=== PATIENT | male | born 1950 ===

== ENCOUNTER 2020-01-14 18:42 | Emergency (ER) | payer MEDICARE, MEDICAID, SELFPAY ==
--- NOTE | 2020-01-14 18:52 | ECG_ITS ---
Test Reason : CP Blood Pressure : / mmHG Vent. Rate : 078 BPM Atrial Rate : 078 BPM P-R Int : 150 ms QRS Dur : 086 ms QT Int : 366 ms P-R-T Axes : 066 068 041 degrees QTc Int : 417 ms Normal sinus rhythm Normal ECG No significant changes when compared with the previous EKG of 23 mar 2019 Referred By: Chari Larson Electronically Signed By:PARTH RINALDI
--- NOTE | 2020-01-14 19:10 | PC.NURSE ---
PT TO ROOM #17 WITH C/O CHEST PAIN, PT DENIES N/V AT THIS TIME. PT DENIES NECK OR ARM PAIN. PT CHG INTO GOWN. EKG OBTAINED TO . PT ON MONITOR WITH HR 71. PO 96%. PT SPEAKING ON PHONE WITH FAMILY. HL PLACED TO [facility], LABS DRAWN TO LAB FOR EVAL. MD IN ROOM FOR EVAL. WILL CONTINUE TO MONITOR PT.
--- NOTE | 2020-01-14 19:16 | ED_ITS ---
HPI - Chest Pain General Chief Complaint: Chest Pain Stated Complaint: Chest Pain Time Seen by Provider: 01/14/20 19:05 Source: patient Mode of arrival: ambulatory Limitations: no limitations History of Present Illness HPI narrative: Patient comes emergency room complaining of chest pain for 2-3 weeks. Patient states it only hurts if he moves or if he lifts both of his arms up. Pain is nonradiating. Patient states he has been feeling tired for 3 weeks now. Patient denies any coughing, no fever, no known exposure to COVID-19 patients. MD complaint: chest pain Related Data Previous Rx's Medication Instructions Recorded tramadol 50 mg PO Q8H PRN #10 tab 01/14/20 Allergies Allergy/AdvReac Type Severity Reaction Status Date / Time No Known Allergies Allergy Unverified 10/27/19 15:16 [No Known Allergies*] Review of Systems Review of Systems: Constitutional : No Weight loss, No Fever, No Chills, No Night Sweats, No Fatigue, No Malaise ENT/Mouth : No Hearing loss, No Ear Pain, No Nasal Congestion, No Sinus Pain, No Hoarseness, No sore throat, No Rhinorrhea, No Swallowing Difficulty Eyes: No Eye Pain, No Swelling, No Redness, No Foreign Body, No Discharge, No Vision Changes Cardiovascular : Complaining left-sided Chest Pain, No SOB, No Dyspnea on Exertion, No Orthopnea, No Edema, No Palpitations, complaining of reproducible chest pain with arm movement or pressing on the left side of his chest Respiratory : No Cough, No Sputum, No Wheezing, No Smoke Exposure, No Dyspnea Gastrointestinal : No Nausea, No Vomiting, No Diarrhea, No Constipation, No abdominal Pain, No Hematochezia, No Melena Genitourinary : no irregular bleeding, No Dysuria, No Urinary Frequency, No Hematuria, No Urinary Incontinence, No Urgency, No Flank Pain, No Urinary Flow Changes, No Hesitancy Musculoskeletal : No joint pain, No Myalgias, No Joint Swelling Skin : No Skin Lesions, No rash Neuro : No Weakness, No Numbness, No Paresthesias, No Loss of Consciousness, No Dizziness, No Headache Psych : No Anxiety/Panic, No Depression, No SI/HI/AH/VH, No Social Issues, Heme/Lymph: No Bruising, No Bleeding,No Lymphadenopathy Endocrine : No Polyuria, No Polydipsia, No Temperature Intolerance PMFSH Past Medical History Medical History (Updated 01/14/20 @ 23:24 by Chari Larson MD) Myocardial infarct Social History Social History Advance Directives: No Advance Directives Information Provided: Yes Physical Exam Vital Signs: Vital Signs: Last Vital Signs Temp 98.2 F 01/14/20 21:57 Pulse 70 01/14/20 21:57 Resp 16 01/14/20 21:57 BP 146/86 H 01/14/20 21:57 Pulse Ox 99 01/14/20 21:57 Appearance: Alert. Oriented X3. No acute distress. Eyes: Pupils equal, round and reactive to light. ENT: Pharynx normal. Neck: Normal inspection. Neck supple. No lymph nodes noted. No crepitus CVS: Normal heart rate and rhythm. Pulses normal. Normal S1 and S2, mild 1/6 systolic murmur, reproducible chest pain on palpation Respiratory: No respiratory distress. Breath sounds normal. No Wheezing. No rales Abdomen: Soft and nontender. No rigidity. No distention. good BS x4 Skin: Skin warm and dry. Normal skin color. Normal skin turgor. Extremities: No lower extremity edema. No lower extremity edema. No Lacerations. No Rash Neuro: Oriented X 3. No motor deficit. No sensory deficit. Moving all extermities. No slurred speech. Course Course Course Narrative: patient states the tramadol helps, patient has no chest pain At this time. Patient's troponin 2. 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 MDM - Chest Pain Lab Data Result diagrams: 01/14/20 19:28 01/14/20 19:28 Labs: Lab Results 01/14/20 01/14/20 01/14/20 Range/Units 19:28 19:28 19:28 WBC 5.4 (4.8-10.8) X10*3/uL RBC 4.69 (4.60-5.80) X10*6/uL Hgb 13.2 L (14.0-18.0) g/dl Hct 40.3 L (42-52) % MCV 85.9 (80-98) fL MCH 28.1 (27.0-33.0) pg MCHC 32.8 (31.0-36.0) g/dl RDW 15.0 (11.0-16.0) % Plt Count 266 (160-400) X10*3/uL MPV 9.9 (9.4-12.4) fL Immature Gran % (Auto) 0.2 (0.0-0.4) % Neut % (Auto) 57.7 (45-73) % Lymph % (Auto) 29.6 (20-40) % [place] % (Auto) 9.1 (2-11) % Eos % (Auto) 3.2 (0-4) % Baso % (Auto) 0.2 (0-2) % Lymph # (Auto) 1.6 (1.2-4.9) X10*3/uL [place] # (Auto) 0.5 (0.1-1.2) X10*3/uL Eos # (Auto) 0.2 (0.0-0.4) X10*3/uL Baso # (Auto) 0.0 (0.0-0.2) X10*3/uL Abs Immat Gran (auto) 0.01 (0.00-0.03) X10*3/uL Absolute Neuts (auto) 3.1 (2.0-8.3) X10*3/uL Absolute Nucleated RBC 0.000 (0.0-0.012) X10*3/uL Nucleated RBC % (auto) 0.0 (0.0-0.2) /100WBC Sodium 138 (135-145) mmol/L Potassium 4.4 (3.3-5.1) mmol/l Chloride 105 (96-108) mmol/L Carbon Dioxide 22 (22-29) mmol/L Anion Gap 15 (12-20) BUN 20 H (9-16) mg/dL Creatinine 0.95 (0.5-1.4) mg/dL Estim Creat Clear Calc TNP Estimated GFR > 60 Random Glucose 89 (60-115) mg/dL Calcium 9.0 (8.4-10.2) mg/dL Troponin I High Sens 13.9 (<3.5-35.0) ng/L B-Natriuretic Peptide < 10 (<100) pg/mL 01/14/20 Range/Units 22:22 WBC (4.8-10.8) X10*3/uL RBC (4.60-5.80) X10*6/uL Hgb (14.0-18.0) g/dl Hct (42-52) % MCV (80-98) fL MCH (27.0-33.0) pg MCHC (31.0-36.0) g/dl RDW (11.0-16.0) % Plt Count (160-400) X10*3/uL MPV (9.4-12.4) fL Immature Gran % (Auto) (0.0-0.4) % Neut % (Auto) (45-73) % Lymph % (Auto) (20-40) % [place] % (Auto) (2-11) % Eos % (Auto) (0-4) % Baso % (Auto) (0-2) % Lymph # (Auto) (1.2-4.9) X10*3/uL [place] # (Auto) (0.1-1.2) X10*3/uL Eos # (Auto) (0.0-0.4) X10*3/uL Baso # (Auto) (0.0-0.2) X10*3/uL Abs Immat Gran (auto) (0.00-0.03) X10*3/uL Absolute Neuts (auto) (2.0-8.3) X10*3/uL Absolute Nucleated RBC (0.0-0.012) X10*3/uL Nucleated RBC % (auto) (0.0-0.2) /100WBC Sodium (135-145) mmol/L Potassium (3.3-5.1) mmol/l Chloride (96-108) mmol/L Carbon Dioxide (22-29) mmol/L Anion Gap (12-20) BUN (9-16) mg/dL Creatinine (0.5-1.4) mg/dL Estim Creat Clear Calc Estimated GFR Random Glucose (60-115) mg/dL Calcium (8.4-10.2) mg/dL Troponin I High Sens 16.2 (<3.5-35.0) ng/L B-Natriuretic Peptide (<100) pg/mL Scores Heart Score History: -0- slightly suspicious ECG: -0- normal Age: -2- > or = 65 Risk factory: -1- 1 or 2 risk factors Troponin: -0- < or = normal limit Score: 3 Risk: 1.7% Discharge Plan Discharge Clinical Impression: Atypical chest pain Patient Disposition: Home, Self-Care Instructions: Chest Pain (ED) Additional Instructions: Please follow-up with your primary care physician tomorrow. If you have any worsening or new symptoms, please return to the emergency room or call 911 Prescriptions: New tramadol 50 mg tablet 50 mg PO Q8H PRN (Reason: pain) Qty: 10 RF: 0
--- NOTE | 2020-01-14 19:21 | XR_ITS ---
EXAMINATION: XR CHEST CLINICAL INFORMATION: Left-sided chest pain COMPARISON: 03/19/2017 TECHNIQUE: Frontal view of the chest was obtained. FINDINGS: Again seen are changes of median sternotomy and clips denoting CABG. Heart size is normal. No infiltrates, effusions or lung masses are seen. Mild degenerative changes noted once again in the spine. XR/XR chest 1V IMPRESSION: Unremarkable examination. No acute intrathoracic disease.
--- NOTE | 2020-01-14 19:26 | PC.NURSE ---
X-RAY IN ROOM FOR CHEST X-RAY.
[2020-01-14 19:43] LABS: MANUAL DIFF FLAG NO
[2020-01-14 19:44] LABS: Basophils Percent Auto 0.2 % (0-2); Eosinophils Absolute Auto 0.2 X10*3/uL (0.0-0.4); Eosinophils Percent Auto 3.2 % (0-4); Hematocrit 40.3 % (42-52); Hemoglobin 13.2 g/dl (14.0-18.0); Imm Gran Abs Auto 0.01 X10*3/uL (0.00-0.03); Imm Gran Pct Auto 0.2 % (0.0-0.4); Lymphocytes Absolute Auto 1.6 X10*3/uL (1.2-4.9); Lymphocytes Percent Auto 29.6 % (20-40); Mean Corpuscular HGB Conc 32.8 g/dl (31.0-36.0); Mean Corpuscular Hemoglobin 28.1 pg (27.0-33.0); Mean Corpuscular Volume 85.9 fL (80-98); Mean Platelet Volume 9.9 fL (9.4-12.4); Monocytes Absolute Auto 0.5 X10*3/uL (0.1-1.2); Monocytes Percent Auto 9.1 % (2-11); Neutrophils Absolute Auto 3.1 X10*3/uL (2.0-8.3); Neutrophils Percent Auto 57.7 % (45-73); Platelet Count 266 X10*3/uL (160-400); Red Blood Count 4.69 X10*6/uL (4.60-5.80); White Blood Count 5.4 X10*3/uL (4.8-10.8)
[2020-01-14 20:03] LABS: Anion Gap 15 (12-20); Blood Urea Nitrogen 20 mg/dL (9-16); Carbon Dioxide 22 mmol/L (22-29); Chloride 105 mmol/L (96-108); Estimated Glomerular Filt Rate > 60; Glucose Random 89 mg/dL (60-115); Potassium 4.4 mmol/l (3.3-5.1); Sodium 138 mmol/L (135-145)
[2020-01-14 20:10] LABS: B Type Natriuretic Peptide < 10 pg/mL (<100); Troponin-I High Sensitivity 13.9 ng/L (<3.5-35.0)
[2020-01-14 20:11] VITALS: BP 165/78; PULSE 66; RESP 16; O2SAT 16
[2020-01-14 21:57] VITALS: BP 146/86; PULSE 70; RESP 16; TEMP 36.8; O2SAT 99
[2020-01-14] MEDS: traMADoL HCL 50 MG TABLET PO (22:20)
[2020-01-14 22:58] LABS: Troponin-I High Sensitivity 16.2 ng/L (<3.5-35.0)
== END 2020-01-14 23:38 | disposition home or self-care (01) ==
PROVIDERS: Emergency Provider Emergency Medicine; PCP Internal Medicine
DX: R07.89 Other chest pain (principal); I25.2 Old myocardial infarction
CPT/HCPCS: 36415; 71045; 80048; 83880; 84484; 85025; 93005; 99283

== ENCOUNTER → 2020-02-07 10:30 | Outpatient (BNVA) | payer MEDICARE, MEDICAID, SELFPAY | PROVIDERS: PCP Internal Medicine; Visit Provider Nurse Practitioner Family | DX: I25.10 Atherosclerotic heart disease of native coronary artery without angina pectoris (principal); I10 Essential (primary) hypertension; E78.5 Hyperlipidemia, unspecified; E11.9 Type 2 diabetes mellitus without complications; E66.9 Obesity, unspecified; Z68.34 Body mass index [BMI] 34.0-34.9, adult; Z79.899 Other long term (current) drug therapy; Z95.1 Presence of aortocoronary bypass graft | CPT/HCPCS: 99212 ==

== ENCOUNTER 2020-02-08 08:53 | Outpatient (REF) | payer MEDICARE, MEDICAID, SELFPAY ==
[2020-02-08 09:52] LABS: Alanine Aminotransferase 22 U/L (0-40); Aspartate Amino Transferase 20 U/L (5-37); Cholesterol 155 mg/dL; HDL Cholesterol 49 mg/dL; LDL Cholesterol Calculated 89 mg/dl; Triglycerides 86 mg/dL
== END 2020-02-08 08:54 | disposition home or self-care (01) ==
LOC: HO.LAB 08:53
PROVIDERS: PCP Internal Medicine; Visit Provider Nurse Practitioner Family
DX: E78.5 Hyperlipidemia, unspecified (principal)
CPT/HCPCS: 80061; 84450; 84460

== ENCOUNTER → 2020-09-13 08:08 | Outpatient (BNVA) | payer MEDICARE, MEDICAID, SELFPAY | PROVIDERS: PCP Internal Medicine; Visit Provider Internal Medicine | DX: I25.10 Atherosclerotic heart disease of native coronary artery without angina pectoris (principal); I10 Essential (primary) hypertension; E11.8 Type 2 diabetes mellitus with unspecified complications; E66.01 Morbid (severe) obesity due to excess calories | CPT/HCPCS: 93005; 99212 ==

== ENCOUNTER → 2021-03-19 08:23 | Outpatient (BNVA) | payer MEDICARE, MEDICAID, SELFPAY | PROVIDERS: PCP Internal Medicine; Visit Provider Internal Medicine | DX: I25.10 Atherosclerotic heart disease of native coronary artery without angina pectoris (principal); I10 Essential (primary) hypertension; E11.8 Type 2 diabetes mellitus with unspecified complications; E66.01 Morbid (severe) obesity due to excess calories; Z68.34 Body mass index [BMI] 34.0-34.9, adult | CPT/HCPCS: 99212 ==

== ENCOUNTER → 2021-08-30 08:40 | Outpatient (BNVA) | payer MEDICARE, MEDICAID, SELFPAY | PROVIDERS: PCP Internal Medicine; Visit Provider Internal Medicine Pulmonary Disease | DX: J45.909 Unspecified asthma, uncomplicated (principal); Z91.09 Other allergy status, other than to drugs and biological substances | CPT/HCPCS: 36415; 82785; 85025; 86003; 99202 ==

== ENCOUNTER 2021-08-30 09:27 | Outpatient (REF) | payer MEDICARE, MEDICAID, SELFPAY ==
[2021-08-30 09:44] LABS: MANUAL DIFF FLAG NO
[2021-08-30 09:58] LABS: Basophils Percent Auto 0.2 % (0-2); Eosinophils Absolute Auto 0.2 X10*3/uL (0.0-0.4); Eosinophils Percent Auto 4.7 % (0-4); Hematocrit 44.7 % (42.0-52.0); Hemoglobin 14.4 g/dl (14.0-18.0); Imm Gran Abs Auto 0.01 X10*3/uL (0.00-0.03); Imm Gran Pct Auto 0.2 % (0.0-0.4); Lymphocytes Absolute Auto 1.5 X10*3/uL (1.2-4.9); Mean Corpuscular HGB Conc 32.2 g/dl (31.0-36.0); Mean Corpuscular Hemoglobin 27.5 pg (27.0-33.0); Mean Corpuscular Volume 85.3 fL (80.0-98.0); Monocytes Absolute Auto 0.5 X10*3/uL (0.1-1.2); Monocytes Percent Auto 11.2 % (2-11); Neutrophils Absolute Auto 2.2 x10*3/uL (2.0-8.3); Neutrophils Percent Auto 49.7 % (45-73); Platelet Count 217 X10*3/uL (160-400); Red Blood Count 5.24 X10*6/uL (4.60-5.80); White Blood Count 4.5 X10*3/uL (4.8-10.8)
== END 2021-08-30 09:28 | disposition home or self-care (01) ==
LOC: HO.LAB 09:27
PROVIDERS: PCP Internal Medicine; Visit Provider Internal Medicine Pulmonary Disease
DX: Z13.89 Encounter for screening for other disorder (principal)
CPT/HCPCS: 36415; 82785; 85025

== ENCOUNTER 2021-09-10 09:17 | Outpatient (REF) | payer MEDICARE, MEDICAID, SELFPAY ==
--- NOTE | ~2021-09-10 | US_ITS ---
EXAMINATION: US THYROID CLINICAL INFORMATION: Nontoxic single thyroid nodule. COMPARISON: None TECHNIQUE: Linear transducer grayscale and color Doppler examination with attention to the region of the thyroid. FINDINGS: SIZE: Measurements of the thyroid lobes and nodules are given in sagittal, anteroposterior and transverse dimensions respectively. Right Thyroid Lobe: 5.6 x 1.8 x 2.6 cm, volume 13.9 mL. Parenchyma: The gland echotexture is homogeneous. Thyroid vascularity is normal. Left Thyroid Lobe: 3.7 x 1.6 x 2.2 cm, volume 6.9 mL. Parenchyma: The gland echotexture is homogeneous. Thyroid vascularity is normal. Isthmus: 0.3 cm in maximum AP dimension. Estimated total number of nodules greater than or equal to 1 cm: 1. Cylinder Block Hole Reliner nodules are described as follows: 1. Location: Right mid. Size: 0.9 x 0.9 x 0.7 cm, volume 0.3 mL. Nodule characteristics: Composition: Spongiform (0). Echogenicity: Anechoic (0). Shape: Not taller than wide (0). Margins: Smooth (0). Echogenic Foci: None (0). ACR TI-RADS total points: 0 ACR TI-RADS category: 1 2. Location: Right inferior. Size: 1.6 x 1.7 x 1.6 cm, volume 2.3 mL. Nodule characteristics: Composition: Solid/almost completely solid (2). Echogenicity: Hypoechoic (2). Shape: Not taller than wide (0). Margins: Smooth (0). Echogenic Foci: None (0). ACR TI-RADS total points: 4 ACR TI-RADS category: 4 3. Location: Left mid. Size: 0.6 x 0.6 x 0.8 cm, volume 0.2 mL. Nodule characteristics: Composition: Solid (2). Echogenicity: Hyperechoic (1). Shape: Not taller than wide (0). Margins: Smooth (0). Echogenic Foci: None (0). ACR TI-RADS total points: 3 ACR TI-RADS category: 3 NODES: No lymphadenopathy is seen in the tissue surrounding the thyroid gland. US/US thyroid IMPRESSION: 1. A 1.6 cm in maximal diameter right thyroid lower pole nodule meets ACR biopsy criteria and is amenable to ultrasound-guided biopsy, if clinically indicated and not already performed. 2. There is an asymmetric goiter, right lobe greater than left. ACR TI-RADS RECOMMENDATION REFERENCE: Ultrasound-guided fine-needle aspiration, followup ultrasound, no further follow up. * TR1 (0 point) and TR 2 (2 points): No FNA or follow up * TR3 (3 points): FNA if more than or equal to 2.5 cm in maximum dimension, followup ultrasound in 1, 3 and 5 years if 1.5 to 2.4 cm in maximum dimension. * TR4 (4-6 points): FNA if more than or equal to 1.5 cm in maximum dimension, followup ultrasound in 1, 2, 3 and 5 years if 1 to 1.4 cm in maximum dimension. * TR5 (more than or equal to 7 points): FNA if more than or equal to 1 cm in maximum dimension, followup ultrasound every year for 5 years if 0.5 to 0.9 cm in maximum dimension. * TR3, TR4 or TR5 nodules that are below the size threshold for follow up receive no follow up.
== END 2021-09-10 09:18 | disposition home or self-care (01) ==
LOC: HO.US 09:17
PROVIDERS: Visit Provider Internal Medicine
DX: E04.1 Nontoxic single thyroid nodule (principal)
CPT/HCPCS: 76536

== ENCOUNTER 2021-09-20 07:29 | Outpatient (REF) | payer MEDICARE, MEDICAID, SELFPAY ==
--- NOTE | 2021-09-20 11:49 | PFT_ITS ---
INDICATION: Dyspnea. SPIROMETRY: FEV1 to FVC of 94% with an FEV1 of 2.11 L, which is 77% predicted, an FVC of 2.24 L which is 61% predicted. No significant response to bronchodilators noted. Maximum voluntary ventilation 73% predicted. LUNG VOLUMES: Total lung capacity 66% predicted with an expiratory reserve volume of 30% predicted. DIFFUSION CAPACITY: DLCO 63% predicted, although corrects to 109% predicted when correcting for the alveolar volume. COMPARISONS: None. INTERPRETATION: No obstructive ventilatory defect. No significant response to bronchodilators noted. Mild decrease in maximum voluntary ventilation secondary to deconditioning, although cannot rule out neuromuscular conditions. The patient does have a restrictive ventilatory defect, consistent with mild restrictive lung disease. This could be secondary to underlying interstitial lung conditions, body habitus and/or neuromuscular conditions. The patient does have a mild diffusion impairment, it does correct to normal when correcting for the alveolar volume. Clinical correlation is warranted. MD HCANTAL Francois/RICARDO / [id number]
== END 2021-09-20 07:30 | disposition home or self-care (01) ==
LOC: HO.RESP 07:29
PROVIDERS: PCP Internal Medicine; Visit Provider Internal Medicine Pulmonary Disease
DX: J45.909 Unspecified asthma, uncomplicated (principal)
CPT/HCPCS: 94060; 94727; 94729

== ENCOUNTER → 2021-09-23 07:52 | Outpatient (BNVA) | payer MEDICARE, MEDICAID, SELFPAY | PROVIDERS: PCP Internal Medicine; Visit Provider Internal Medicine | DX: I25.10 Atherosclerotic heart disease of native coronary artery without angina pectoris (principal); I10 Essential (primary) hypertension; E11.8 Type 2 diabetes mellitus with unspecified complications; E66.01 Morbid (severe) obesity due to excess calories; Z68.34 Body mass index [BMI] 34.0-34.9, adult | CPT/HCPCS: 93005; 99212 ==

== ENCOUNTER → 2021-10-10 08:50 | Outpatient (BNVA) | payer MEDICARE, MEDICAID, SELFPAY | PROVIDERS: PCP Internal Medicine; Visit Provider Internal Medicine Pulmonary Disease | DX: J45.909 Unspecified asthma, uncomplicated (principal); Z91.09 Other allergy status, other than to drugs and biological substances | CPT/HCPCS: 99212 ==

== ENCOUNTER → 2021-10-30 12:12 | Outpatient (BNVA) | payer MEDICARE, MEDICAID, SELFPAY | PROVIDERS: PCP Internal Medicine; Visit Provider Internal Medicine | DX: E04.2 Nontoxic multinodular goiter (principal) | CPT/HCPCS: 99202 ==

== ENCOUNTER 2021-12-18 08:34 | Outpatient (REF) | payer MEDICARE, MEDICAID, SELFPAY ==
--- NOTE | 2021-12-18 09:10 | P.BOP_ITS ---
Brief Operative Note Date of Service: 12/18/21 Pre-op diagnosis: Multinodular Thyroid Procedure: This is doctor Malena Jasso. This is an ultrasound-guided fine-needle aspiration report. Date of Examination: Indication: Multinodular Thyroid Porcedure: Procedure was explained to the patient. Alternatives, the risk and benefits were discussed. Written consent was obtained. A time-out was also obtained. After sterile preparation, fine-needle aspiration of a right lower pole 1.7 cm thyroid nodule was performed using direct ultrasound guidance to confirm accurate needle placement. Five aspirations were made using 25 gauge needles. Samples were submitted for cytology. Two passes was dedicated for [employer] Gene sequencing restrictive preparation operator testing. The patient tolerated the procedure well. Aftercare instructions were provided. Impression: Uncomplicated fine needle aspiration biopsy of a right lower pole 1.7 cm thyroid nodule under ultrasound guidance. Surgeon: Malena Jasso, DO Was an Practice Business Asst used for this Procedure?: No Estimated blood loss (mL): 0
[2021-12-18 10:29] LABS: Anion Gap 15 (12-20); Blood Urea Nitrogen 22 mg/dL (9-16); Calcium 9.3 mg/dL (8.4-10.2); Carbon Dioxide 24 mmol/L (22-29); Chloride 105 mmol/L (96-108); Estimated Glomerular Filt Rate > 60; Glucose Random 149 mg/dL (60-115); Potassium 4.3 mmol/L (3.3-5.1); Sodium 140 mmol/L (135-145)
[2021-12-18] MEDS: Lidocaine HCl 1 % MPF 5 ML VIAL SUBCUT (11:29)
== END 2021-12-18 08:35 | disposition home or self-care (01) ==
LOC: HO.US 08:34
PROVIDERS: Absent Provider Internal Medicine; PCP Internal Medicine; Visit Provider Internal Medicine
DX: E04.1 Nontoxic single thyroid nodule (principal); I10 Essential (primary) hypertension
CPT/HCPCS: 10005; 36415; 80048; 88172; 88173

== ENCOUNTER 2021-12-20 07:08 | Outpatient (REF) | payer MEDICARE, MEDICAID, SELFPAY ==
--- NOTE | ~2021-12-20 | CT_ITS ---
EXAMINATION: CT ABDOMEN AND PELVIS WITH CONTRAST CLINICAL INFORMATION: Left lower quadrant pain. COMPARISON: CT abdomen and pelvis 07/05/2018. TECHNIQUE: Multidetector volumetric images were obtained from the superior aspect of the liver through the pubic symphysis following administration 85 mL of Omnipaque 350 intravenous contrast. Sagittal and coronal reformatted images were obtained on the technologist's workstation. Oral contrast: No This CT examination was performed using dose optimization techniques as appropriate, variously including the following: *Automated exposure control *Adjustment of mA and/or kV according to patient size (this includes techniques or standardized protocols for targeted exams where dose is matched to indication/reason for exam; i.e. extremities or head) *Use of iterative reconstruction technique DLP: 490 mGy-cm FINDINGS: LUNG BASES: There is ground-glass density left lower lobe medial basal segment. 3 mm nodule seen left lower lobe axial image 1/7 and 7 mm lobulated nodule left lower lobe axial image 10/7. 1.4 cm nodular density seen in the right lung base CP angle question focal atelectasis versus nodule LIVER, GALLBLADDER, AND BILIARY TREE: The liver is normal in size, shape, and attenuation. There is a 4 mm hypodensity right hepatic lobe adjacent to the diaphragm axial image 13/3 probable cyst. The gallbladder is unremarkable with no evidence of radiopaque gallstones, gallbladder wall thickening, or obvious pericholecystic inflammatory changes. PANCREAS: Unremarkable. SPLEEN: Unremarkable. ADRENAL GLANDS: Unremarkable. KIDNEYS AND URETERS: The kidneys are normal in size, shape, and attenuation. No hydronephrosis, hydroureter, or calculi seen. No perinephric stranding. There are bilateral renal cysts with the largest cyst right kidney midpole measuring 8.6 cm wide. BLADDER: There is mild bladder wall thickening without any distention or enhancement. GASTROINTESTINAL TRACT: There is diffuse scattered colonic diverticulosis and stool without any diverticulitis, mural thickening or obstruction. Partially contrast opacified small bowel loops and stomach appears unremarkable. ABDOMINAL WALL: No significant hernia is appreciated. LYMPH NODES: Normal. VASCULAR: Unremarkable. PELVIC VISCERA: The prostate gland is heterogeneous and moderately enlarged. The periprostatic fat planes are preserved. No free air or free fluid seen. OSSEOUS STRUCTURES: There are degenerative disc changes with ventral spondylosis L4-L5 and L5-S1 disc levels. There are large bridging osteophytes lower dorsal and upper lumbar spine. No aggressive lytic or sclerotic process seen. CT/CT abdomen pelvis w IV con IMPRESSION: Diffuse colonic diverticulosis without diverticulitis. Mild constipation. Bilateral renal cysts but no radiopaque renal calculi or hydronephrosis. Bilateral lower lobe pulmonary nodules. Recommend correlation with CT chest. Fleischner guidelines were followed.
[2021-12-20] MEDS: iohexoL 350 MG/ML 100 ML INFUS..BTL 85 ML IV (09:27)
[2021-12-20] MEDS: Barium Sulfate Oral (Mocha) 450 ML ORAL.SUSP 900 ML PO (09:27)
== END 2021-12-20 07:09 | disposition home or self-care (01) ==
LOC: HO.CT 07:08
PROVIDERS: PCP Internal Medicine; Visit Provider Internal Medicine
DX: R10.32 Left lower quadrant pain (principal)
CPT/HCPCS: 74177; Q9967

== ENCOUNTER 2021-12-24 09:00 | Outpatient (REF) | payer MEDICARE, MEDICAID, SELFPAY | END 2021-12-24 09:01 | disposition home or self-care (01) | LOC: HO.MDS 09:00 | PROVIDERS: Visit Provider Internal Medicine Pulmonary Disease | DX: J45.50 Severe persistent asthma, uncomplicated (principal) | CPT/HCPCS: 96372; J2357 ==

== ENCOUNTER 2022-01-08 09:14 | Outpatient (REF) | payer MEDICARE, MEDICAID, SELFPAY ==
[2022-01-08 11:14] LABS: Free T4 (Free Thyroxine) 1.01 ng/dL (0.71-1.85); Thyroid Stimulating Hormone 0.31 uIU/mL (0.32-4.0)
== END 2022-01-08 09:15 | disposition home or self-care (01) ==
LOC: HO.MDS 09:14
PROVIDERS: Internal Medicine; Visit Provider Internal Medicine Pulmonary Disease
DX: J45.50 Severe persistent asthma, uncomplicated (principal); E04.2 Nontoxic multinodular goiter; E05.90 Thyrotoxicosis, unspecified without thyrotoxic crisis or storm; E11.9 Type 2 diabetes mellitus without complications; Z79.4 Long term (current) use of insulin
CPT/HCPCS: 36415; 84439; 84443; 96372; 99212

== ENCOUNTER → 2022-01-14 09:07 | Outpatient (BNVA) | payer MEDICARE, MEDICAID, SELFPAY | PROVIDERS: PCP Internal Medicine; Visit Provider Internal Medicine Pulmonary Disease | DX: J45.909 Unspecified asthma, uncomplicated (principal); Z91.09 Other allergy status, other than to drugs and biological substances; G47.33 Obstructive sleep apnea (adult) (pediatric); Z99.89 Dependence on other enabling machines and devices | CPT/HCPCS: 99212 ==

== ENCOUNTER → 2022-02-19 10:05 | Outpatient (REF) | payer MEDICARE, MEDICAID, SELFPAY | LOC: HO.SL 10:05 | PROVIDERS: PCP Internal Medicine; Visit Provider Internal Medicine Pulmonary Disease | DX: G47.33 Obstructive sleep apnea (adult) (pediatric) (principal); Z99.89 Dependence on other enabling machines and devices | CPT/HCPCS: 95806 ==

== ENCOUNTER 2022-03-20 07:06 | Outpatient (REF) | payer MEDICARE, MEDICAID, SELFPAY | END 2022-03-20 07:07 | disposition home or self-care (01) | LOC: HO.MDS 07:06 | PROVIDERS: Visit Provider Internal Medicine Pulmonary Disease | DX: J45.50 Severe persistent asthma, uncomplicated (principal) | CPT/HCPCS: 96372 ==

== ENCOUNTER 2022-04-23 08:36 | Outpatient (REF) | payer OTHER, SELFPAY ==
[2022-04-23 10:20] LABS: Blood Urea Nitrogen 19 mg/dL (9-16); Estimated Glomerular Filt Rate > 60
== END 2022-04-23 08:37 | disposition home or self-care (01) ==
LOC: HO.LAB 08:36
PROVIDERS: PCP Internal Medicine; Visit Provider Internal Medicine
DX: E11.59 Type 2 diabetes mellitus with other circulatory complications (principal)
CPT/HCPCS: 36415; 82565; 84520

== ENCOUNTER 2022-04-29 09:36 | Outpatient (REF) | payer OTHER, MEDICAID, SELFPAY | END 2022-04-29 09:37 | disposition home or self-care (01) | LOC: HO.MDS 09:36 | PROVIDERS: Visit Provider Internal Medicine Pulmonary Disease | DX: J45.50 Severe persistent asthma, uncomplicated (principal) | CPT/HCPCS: 96372 ==

== ENCOUNTER 2022-05-14 09:02 | Outpatient (REF) | payer OTHER, MEDICAID, SELFPAY | END 2022-05-14 09:03 | disposition home or self-care (01) | LOC: HO.MDS 09:02 | PROVIDERS: Visit Provider Internal Medicine Pulmonary Disease | DX: J45.50 Severe persistent asthma, uncomplicated (principal) | CPT/HCPCS: 96372; J2357 ==

== ENCOUNTER 2022-05-28 08:40 | Outpatient (REF) | payer OTHER, MEDICAID, SELFPAY | END 2022-05-28 08:41 | disposition home or self-care (01) | LOC: HO.MDS 08:40 | PROVIDERS: Visit Provider Internal Medicine Pulmonary Disease | DX: J45.50 Severe persistent asthma, uncomplicated (principal) | CPT/HCPCS: 96372; J2357 ==

== ENCOUNTER 2022-05-28 09:08 | Emergency (ER) | payer OTHER, MEDICAID, SELFPAY ==
--- NOTE | ~2022-05-28 | XR_ITS ---
EXAMINATION: XR CHEST XR HUMERUS LEFT XR SHOULDER LEFT CLINICAL INFORMATION: Left-sided chest pain rib. Pain of left humerus and shoulder. COMPARISON: CXR from 01/14/2020 TECHNIQUE: Chest, PA and lateral views Left shoulder, 3 views Left humerus, 2 views FINDINGS: CHEST: Lungs are well-inflated and clear. No pneumothorax or pleural effusion. Cardiac silhouette is normal in size, status post coronary artery bypass graft surgery, with intact sternotomy wires in place. There is atherosclerotic calcification of the aortic arch. The pulmonary vascular pattern is normal. There is skeletal hyperostosis with observation of bulky flowing anterior ligament ossification of the thoracic spine. The visualized ribs have an intact appearance. LEFT SHOULDER: Alignment is normal at the acromioclavicular and glenohumeral joints. The humeral head is well-positioned over the intact glenoid. Glenohumeral joint space is maintained. Small osteophytes of the acromioclavicular joint (i.e., mild osteoarthritis). No erosions or periostitis. No calcium deposition within rotator cuff tendons. LEFT HUMERUS: Normal. No focal lytic or blastic lesion. Soft tissues of the upper arm have a normal appearance. The elbow joint spaces are normal. There are enthesophytes of the medial humeral epicondyle and olecranon. XR/XR humerus LT IMPRESSION: * No acute pulmonary disease. * Mild osteoarthritis of the acromioclavicular joint. * Left humerus is unremarkable. * No fracture or malalignment at the left shoulder.
--- NOTE | ~2022-05-28 | XR_ITS ---
EXAMINATION: XR CHEST XR HUMERUS LEFT XR SHOULDER LEFT CLINICAL INFORMATION: Left-sided chest pain rib. Pain of left humerus and shoulder. COMPARISON: CXR from 01/14/2020 TECHNIQUE: Chest, PA and lateral views Left shoulder, 3 views Left humerus, 2 views FINDINGS: CHEST: Lungs are well-inflated and clear. No pneumothorax or pleural effusion. Cardiac silhouette is normal in size, status post coronary artery bypass graft surgery, with intact sternotomy wires in place. There is atherosclerotic calcification of the aortic arch. The pulmonary vascular pattern is normal. There is skeletal hyperostosis with observation of bulky flowing anterior ligament ossification of the thoracic spine. The visualized ribs have an intact appearance. LEFT SHOULDER: Alignment is normal at the acromioclavicular and glenohumeral joints. The humeral head is well-positioned over the intact glenoid. Glenohumeral joint space is maintained. Small osteophytes of the acromioclavicular joint (i.e., mild osteoarthritis). No erosions or periostitis. No calcium deposition within rotator cuff tendons. LEFT HUMERUS: Normal. No focal lytic or blastic lesion. Soft tissues of the upper arm have a normal appearance. The elbow joint spaces are normal. There are enthesophytes of the medial humeral epicondyle and olecranon. XR/XR chest 2V IMPRESSION: * No acute pulmonary disease. * Mild osteoarthritis of the acromioclavicular joint. * Left humerus is unremarkable. * No fracture or malalignment at the left shoulder.
--- NOTE | ~2022-05-28 | XR_ITS ---
EXAMINATION: XR CHEST XR HUMERUS LEFT XR SHOULDER LEFT CLINICAL INFORMATION: Left-sided chest pain rib. Pain of left humerus and shoulder. COMPARISON: CXR from 01/14/2020 TECHNIQUE: Chest, PA and lateral views Left shoulder, 3 views Left humerus, 2 views FINDINGS: CHEST: Lungs are well-inflated and clear. No pneumothorax or pleural effusion. Cardiac silhouette is normal in size, status post coronary artery bypass graft surgery, with intact sternotomy wires in place. There is atherosclerotic calcification of the aortic arch. The pulmonary vascular pattern is normal. There is skeletal hyperostosis with observation of bulky flowing anterior ligament ossification of the thoracic spine. The visualized ribs have an intact appearance. LEFT SHOULDER: Alignment is normal at the acromioclavicular and glenohumeral joints. The humeral head is well-positioned over the intact glenoid. Glenohumeral joint space is maintained. Small osteophytes of the acromioclavicular joint (i.e., mild osteoarthritis). No erosions or periostitis. No calcium deposition within rotator cuff tendons. LEFT HUMERUS: Normal. No focal lytic or blastic lesion. Soft tissues of the upper arm have a normal appearance. The elbow joint spaces are normal. There are enthesophytes of the medial humeral epicondyle and olecranon. XR/XR shoulder LT min 2V IMPRESSION: * No acute pulmonary disease. * Mild osteoarthritis of the acromioclavicular joint. * Left humerus is unremarkable. * No fracture or malalignment at the left shoulder.
[2022-05-28 09:14] VITALS: BP 124/60; PULSE 81; RESP 20; TEMP 36.7; O2SAT 97; BMI 33.0
--- NOTE | 2022-05-28 09:30 | ECG_ITS ---
Test Reason : pain Blood Pressure : / mmHG Vent. Rate : 069 BPM Atrial Rate : 069 BPM P-R Int : 176 ms QRS Dur : 092 ms QT Int : 382 ms P-R-T Axes : 070 072 081 degrees QTc Int : 409 ms Normal sinus rhythm Normal ECG When compared with ECG of 14-JAN-2020 18:52, No significant change was found Referred By: Erick Singh Electronically Signed By:PARTH RINALDI
[2022-05-28 09:53] LABS: MANUAL DIFF FLAG NO
[2022-05-28 09:55] LABS: Basophils Percent Auto 0.2 % (0-2); Eosinophils Absolute Auto 0.2 X10*3/uL (0.0-0.4); Eosinophils Percent Auto 4.2 % (0-4); Hematocrit 42.1 % (42.0-52.0); Hemoglobin 14.1 g/dl (14.0-18.0); Imm Gran Abs Auto 0.01 X10*3/uL (0.00-0.03); Imm Gran Pct Auto 0.2 % (0.0-0.4); Lymphocytes Absolute Auto 1.4 X10*3/uL (1.2-4.9); Lymphocytes Percent Auto 28.3 % (20-40); Mean Corpuscular HGB Conc 33.5 g/dl (31.0-36.0); Mean Corpuscular Hemoglobin 28.7 pg (27.0-33.0); Mean Corpuscular Volume 85.6 fL (80.0-98.0); Monocytes Absolute Auto 0.6 X10*3/uL (0.1-1.2); Monocytes Percent Auto 11.6 % (2-11); Neutrophils Absolute Auto 2.7 x10*3/uL (2.0-8.3); Neutrophils Percent Auto 55.5 % (45-73); Platelet Count 230 X10*3/uL (160-400); Red Blood Count 4.92 X10*6/uL (4.60-5.80); Red Cell Distribution Width 14.5 % (11.0-16.0); White Blood Count 4.8 X10*3/uL (4.8-10.8)
[2022-05-28 10:23] LABS: Anion Gap 11 (12-20); Blood Urea Nitrogen 20 mg/dL (9-16); Carbon Dioxide 26 mmol/L (22-29); Chloride 106 mmol/L (96-108); Creatinine Clr Calc Pharmacy 58.5; Estimated Glomerular Filt Rate 59; Glucose Random 159 mg/dL (60-115); Potassium 4.4 mmol/L (3.3-5.1); Sodium 139 mmol/L (135-145)
[2022-05-28 10:32] LABS: Troponin-I High Sensitivity 4.9 ng/L (<3.5-35.0)
[2022-05-28 12:00] VITALS: BP 129/69; PULSE 78; RESP 16; O2SAT 96
[2022-05-28 13:50] LABS: Troponin-I High Sensitivity 6.7 ng/L (<3.5-35.0)
[2022-05-28 14:17] VITALS: BP 129/71; PULSE 85; RESP 15; O2SAT 98
--- NOTE | 2022-05-28 14:17 | ED.GENADULT ---
HPI - General Adult General Chief complaint: Extremity Problem Stated complaint: L arm pain Time Seen by Provider: 05/28/22 09:23 History of Present Illness HPI narrative: Patient complains of left lateral chest left shoulder and left arm pain worse with movement which is continuous and has been present for 1-2 months, does not recall any injury, pain is not related to exertion, there is no diaphoresis no fainting no feeling faint no palpitations no shortness of breath no nausea or vomiting, no neck pain no back pain no numbness weakness or tingling no leg swelling Patient does have history of coronary artery disease with cabg in 2017 Related Data Home Medications Medication Instructions Recorded Confirmed cetirizine 10 mg tablet 5 mg PO DAILY PRN 02/07/20 01/08/22 escitalopram oxalate 10 mg tablet 10 mg PO DAILY 02/07/20 01/08/22 finasteride 5 mg tablet 5 mg PO DAILY 02/07/20 01/08/22 metformin 1,000 mg tablet 1,000 mg PO BID 02/07/20 01/08/22 nitroglycerin 0.4 mg sublingual 0.4 mg sublingual Q5M PRN 02/07/20 01/08/22 tablet omeprazole 20 mg capsule,delayed 20 mg PO DAILY 02/07/20 01/08/22 release trazodone 50 mg tablet 50 mg PO BEDTIME PRN 02/07/20 01/08/22 dulaglutide 3 mg/0.5 mL mg subcut QWEEK 10/30/21 01/08/22 subcutaneous pen injector (Trulicity) insulin aspart U-100 100 unit/mL See Rx Instructions subcut 10/30/21 01/08/22 (3 mL) subcutaneous pen (Novolog USEASDIRECTD FlexPen U-100 Insulin aspart) insulin glargine 100 unit/mL (3 80 unit subcut DAILY 10/30/21 01/08/22 mL) subcutaneous pen (Lantus Solostar U-100 Insulin) Previous Rx's Medication Instructions Recorded tramadol 50 mg tablet 50 mg PO Q8H PRN pain #10 tabs 01/14/20 aspirin 81 mg tablet,delayed 81 mg PO DAILY 90 days #90 tabs 03/20/21 release (Adult Low Dose Aspirin) fluticasone furoate 200 1 inh inhalation DAILY 30 days #1 08/30/21 mcg-vilanterol 25 mcg/dose ea inhalation powder (Breo Ellipta) omalizumab 150 mg/mL subcutaneous 150 mg subcut Q2W 28 days #2 mL 10/17/21 syringe omalizumab 75 mg/0.5 mL 75 mg (0.5 mL) subcut Q2W 28 days 10/17/21 subcutaneous syringe #1 mL amlodipine 10 mg tablet 10 mg PO DAILY #30 tabs 11/13/21 metoprolol tartrate 50 mg tablet 50 mg PO BID 30 days #60 tabs 11/13/21 irbesartan 150 mg tablet 150 mg PO DAILY #90 tabs 11/22/21 azithromycin 250 mg tablet See Rx Instructions PO .COMPLEX 5 01/14/22 days #6 tabs cilostazol 100 mg tablet 100 mg PO BID #60 tabs 02/06/22 ezetimibe 10 mg tablet 10 mg PO DAILY 90 days #90 tabs 05/01/22 isosorbide mononitrate 60 mg 60 mg PO DAILY 90 days #90 tabs 05/15/22 tablet,extended release 24 hr acetaminophen 500 mg capsule 1,000 mg PO Q8H PRN pain #30 caps 05/28/22 oxycodone 5 mg tablet 5 mg PO Q6H PRN pain #14 tabs 05/28/22 rosuvastatin 20 mg tablet 20 mg PO DAILY 90 days #90 tabs 05/29/22 Allergies Allergy/AdvReac Type Severity Reaction Status Date / Time No Known Allergies Allergy Verified 01/14/22 09:10 [No Known Allergies*] [facility] Past Medical History [facility] Narrative: Positive history of coronary artery disease Medical History (Updated 05/29/22 @ 00:14 by Leigha Corcoran) CAD (coronary artery disease) Diabetes mellitus HLD (hyperlipidemia) HTN (hypertension) Hyperthyroidism Multinodular thyroid Myocardial infarct NSTEMI (non-ST elevated myocardial infarction) Obesity Surgical History Hx of CABG (~07/2016) Hx of ultrasound guided needle biopsy Family History Family History Mother Cardiovascular disease Father Medical history unknown Social History Social History Alcohol intake: current Alcohol intake frequency: does not drink Patient Tobacco Use Status: Never used Tobacco Physical Exam ED Vital Signs: Vital Signs - 24 hr 05/28/22 09:14 05/28/22 12:00 Temperature 98.0 F Pulse Rate 81 78 Respiratory Rate 20 16 Blood Pressure 124/60 129/69 Pulse Oximetry 97 96 Oxygen Delivery Method Room Air Room Air BMI result Body Mass Index 33.0 General appearance is comfortable no acute distress The eyes no redness or pallor The pharynx no redness swelling or exudate membranes are moist Neck is supple The chest is clear to auscultation with full symmetric equal breath sounds Heart no murmur auscultated The chest wall there was tenderness over the left upper chest, pain is easily reproduced with movement and deep breath, skin of the chest wall is normal no rash The back full range of motion The extremities the left shoulder anterior shoulder and deltoid area was tender, color was normal there was no redness or swelling, range of motion was mildly limited on extension external rotation and abduction, the arm was neurovascular intact distal Other extremities normal, no pedal edema no calf tenderness or swelling Skin no rash Neuro no focal deficits Course Course Course Narrative: Patient with reproducible left shoulder and upper arm pain as well as pain in the left upper rib area that is worse with movement deep breath and palpation Patient does have a history of coronary artery bypass graft and heart disease, so EKG was done EKG was normal sinus rhythm without evidence of ischemia, rate 69, MN interval normal, QTC normal, QRS duration normal, no acute ST changes no acute ischemic change Chest x-ray no acute findings Left shoulder x-ray showed some evidence of arthritis, left humerus x-ray was normal CBC was checked, no acute findings Troponin was checked with 1st troponin 4.9 and 2nd 6.7, no significant interval change Symptoms are not typical of coronary artery disease as the or continuous for over a month reproducible easily and are likely musculoskeletal Patient will follow with orthopedist and his doctor and his children's entertainer and well-appearing patient with reproducible pain is discharged Medical Decision Making Lab Data MDM Lab Attestation statement: I reviewed the patient's lab results. 05/28/22 09:48 05/28/22 09:48 Labs: Lab Results 05/28/22 05/28/22 05/28/22 Range/Units 09:48 09:48 09:48 WBC 4.8 (4.8-10.8) X10*3/uL RBC 4.92 (4.60-5.80) X10*6/uL Hgb 14.1 (14.0-18.0) g/dl Hct 42.1 (42.0-52.0) % MCV 85.6 (80.0-98.0) fL MCH 28.7 (27.0-33.0) pg MCHC 33.5 (31.0-36.0) g/dl RDW 14.5 (11.0-16.0) % Plt Count 230 (160-400) X10*3/uL MPV 9.0 L (9.4-12.4) fL Immature Gran % (Auto) 0.2 (0.0-0.4) % Neut % (Auto) 55.5 (45-73) % Lymph % (Auto) 28.3 (20-40) % [place] % (Auto) 11.6 H (2-11) % Eos % (Auto) 4.2 H (0-4) % Baso % (Auto) 0.2 (0-2) % Lymph # (Auto) 1.4 (1.2-4.9) X10*3/uL [place] # (Auto) 0.6 (0.1-1.2) X10*3/uL Eos # (Auto) 0.2 (0.0-0.4) X10*3/uL Baso # (Auto) 0.0 (0.0-0.2) X10*3/uL Abs Immat Gran (auto) 0.01 (0.00-0.03) X10*3/uL Absolute Neuts (auto) 2.7 (2.0-8.3) x10*3/uL Absolute Nucleated RBC 0.000 (0.0-0.012) X10*3/uL Nucleated RBC % (auto) 0.0 (0.0-0.2) /100WBC Sodium 139 (135-145) mmol/L Potassium 4.4 (3.3-5.1) mmol/L Chloride 106 (96-108) mmol/L Carbon Dioxide 26 (22-29) mmol/L Anion Gap 11 L (12-20) BUN 20 H (9-16) mg/dL Creatinine 1.20 (0.5-1.4) mg/dL Estim Creat Clear Calc 58.5 Estimated GFR 59 Random Glucose 159 H (60-115) mg/dL Calcium 9.0 (8.4-10.2) mg/dL Troponin I High Sens 4.9 (<3.5-35.0) ng/L 05/28/22 Range/Units 12:55 WBC (4.8-10.8) X10*3/uL RBC (4.60-5.80) X10*6/uL Hgb (14.0-18.0) g/dl Hct (42.0-52.0) % MCV (80.0-98.0) fL MCH (27.0-33.0) pg MCHC (31.0-36.0) g/dl RDW (11.0-16.0) % Plt Count (160-400) X10*3/uL MPV (9.4-12.4) fL Immature Gran % (Auto) (0.0-0.4) % Neut % (Auto) (45-73) % Lymph % (Auto) (20-40) % [place] % (Auto) (2-11) % Eos % (Auto) (0-4) % Baso % (Auto) (0-2) % Lymph # (Auto) (1.2-4.9) X10*3/uL [place] # (Auto) (0.1-1.2) X10*3/uL Eos # (Auto) (0.0-0.4) X10*3/uL Baso # (Auto) (0.0-0.2) X10*3/uL Abs Immat Gran (auto) (0.00-0.03) X10*3/uL Absolute Neuts (auto) (2.0-8.3) x10*3/uL Absolute Nucleated RBC (0.0-0.012) X10*3/uL Nucleated RBC % (auto) (0.0-0.2) /100WBC Sodium (135-145) mmol/L Potassium (3.3-5.1) mmol/L Chloride (96-108) mmol/L Carbon Dioxide (22-29) mmol/L Anion Gap (12-20) BUN (9-16) mg/dL Creatinine (0.5-1.4) mg/dL Estim Creat Clear Calc Estimated GFR Random Glucose (60-115) mg/dL Calcium (8.4-10.2) mg/dL Troponin I High Sens 6.7 (<3.5-35.0) ng/L Discharge Plan Discharge Clinical Impression: Chest wall pain, Left shoulder pain Patient Disposition: Home, Self-Care Additional Instructions: Blood test for heart attack and EKG did not show any evidence of heart attack Chest x-ray did not show any worrisome findings Left shoulder x-ray showed some arthritis Follow with orthopedist for shoulder, follow with children's entertainer for your pain in the left side of her chest, as well as primary doctor Return to the ER any time for any change or worsening chest pain, shortness of breath, any worse condition or any concerns Prescriptions: New acetaminophen 500 mg capsule 1,000 mg PO Q8H PRN (Reason: pain) Qty: 30 0RF oxycodone 5 mg tablet 5 mg PO Q6H PRN (Reason: pain) Qty: 14 0RF Rx Instructions: Partial Fill upon patient request. No Action aspirin [Adult Low Dose Aspirin] 81 mg tablet,delayed release (DR/EC) 81 mg PO DAILY 90 Days Qty: 90 3RF omalizumab 150 mg/mL syringe 150 mg subcut Q2W 28 Days Qty: 2 12RF omalizumab 75 mg/0.5 mL syringe 75 mg subcut Q2W 28 Days Qty: 1 12RF amlodipine 10 mg tablet 10 mg PO DAILY Qty: 30 6RF metoprolol tartrate 50 mg tablet 50 mg PO BID 30 Days Qty: 60 5RF irbesartan 150 mg tablet 150 mg PO DAILY Qty: 90 2RF cilostazol 100 mg tablet 100 mg PO BID Qty: 60 5RF ezetimibe 10 mg tablet 10 mg PO DAILY 90 Days Qty: 90 3RF isosorbide mononitrate 60 mg tablet extended release 24 hr 60 mg PO DAILY 90 Days Qty: 90 3RF rosuvastatin 20 mg tablet 20 mg PO DAILY 90 Days Qty: 90 3RF tramadol 50 mg tablet 50 mg PO Q8H PRN (Reason: pain) Qty: 10 0RF escitalopram oxalate 10 mg tablet 10 mg PO DAILY cetirizine 10 mg tablet 5 mg PO DAILY PRN trazodone 50 mg tablet 50 mg PO BEDTIME PRN metformin 1,000 mg tablet 1,000 mg PO BID finasteride 5 mg tablet 5 mg PO DAILY omeprazole 20 mg capsule,delayed release(DR/EC) 20 mg PO DAILY nitroglycerin 0.4 mg tablet, sublingual 0.4 mg sublingual Q5M PRN Rx Instructions: do not exceed 3 doses per episode azithromycin 250 mg tablet See Rx Instructions PO .COMPLEX 5 Days Qty: 6 0RF Rx Instructions: For 250 mg dose pack: take 500 mg today (day 1), then 250 mg for 4 days (days 2-5) PO fluticasone furoate-vilanterol [Breo Ellipta] 200-25 mcg/dose blister with device 1 inh inhalation DAILY 30 Days Qty: 1 6RF Trulicity 3 mg/0.5 mL pen injector subcut QWEEK insulin glargine [Lantus Solostar U-100 Insulin] 100 unit/mL (3 mL) insulin pen 80 unit subcut DAILY insulin aspart U-100 [Novolog FlexPen U-100 Insulin] 100 unit/mL (3 mL) insulin pen See Rx Instructions subcut USEASDIRECTD Rx Instructions: Up to 16 units before units subcutaneously use as directed; Interventions: ED Discharge Assessment Last Done: 05/28/22 14:46 Discharge Date/Time: 05/28/22 14:47
== END 2022-05-28 14:47 | disposition home or self-care (01) ==
PROVIDERS: Physician Assistant Medical; Emergency Provider Emergency Medicine Emergency Medical Services; PCP Internal Medicine
DX: R07.89 Other chest pain (principal); M25.512 Pain in left shoulder; Z79.899 Other long term (current) drug therapy
CPT/HCPCS: 36415; 71046; 73030; 73060; 80048; 84484; 85025; 93005; 99284

== ENCOUNTER → 2022-08-01 09:56 | Outpatient (BNVA) | payer OTHER, SELFPAY | PROVIDERS: PCP Internal Medicine; Visit Provider Nurse Practitioner Family | DX: J45.909 Unspecified asthma, uncomplicated (principal); G47.33 Obstructive sleep apnea (adult) (pediatric); Z91.09 Other allergy status, other than to drugs and biological substances; Z99.89 Dependence on other enabling machines and devices | CPT/HCPCS: 99212 ==

== ENCOUNTER 2022-10-01 10:55 | Outpatient (AMB) | payer OTHER, SELFPAY ==
--- NOTE | 2022-10-01 11:12 | A.OFFVIS_ITS ---
Intake Vital Signs 10/01/22 11:13 Height 5 ft 6 in Weight 218 lb 4.122 oz BMI 35.2 BP 122/78 Blood Pressure Location Rt brachial Position Sitting Pulse 81 Pulse Source Doppler Pulse Oximetry (%) 96 Oxygen Delivery Method Room Air Intake Visit Reasons: asthma Allergies No Known Allergies [No Known Allergies*] Allergy (Verified 10/01/22 11:16) HPI asthma HPI Details 72-year-old gentleman, former 10 pack year smoker, quit 1999, now followed for asthma/COPD overlap syndrome, environmental allergies, and DEANDRE.? His symptoms are previously well controlled on Xolair, Breo, and albuterol MDI. Unfortunately, patient has missed his injections for the last 2 months and now complains of dry cough, though he denies an acute exacerbation. He has been using his CPAP with reasonable control of his underlying sleep apnea. [facility] Medical History (Updated 05/29/22 @ 00:14 by Leigha Corcoran) CAD (coronary artery disease) Diabetes mellitus HLD (hyperlipidemia) HTN (hypertension) Hyperthyroidism Multinodular thyroid Myocardial infarct NSTEMI (non-ST elevated myocardial infarction) Obesity Surgical History Hx of CABG (~07/2016) Hx of ultrasound guided needle biopsy Family History Mother Cardiovascular disease Father Medical history unknown Social History (Reviewed 10/01/22 @ 11:17 by Rosaline Doan [facility]) Alcohol intake: current Alcohol intake frequency: does not drink Patient Tobacco Use Status: Never used Tobacco Review of Systems Const Denies daytime sleepiness, Denies excessive sweating, Denies fatigue, Denies fever(s), Denies lethargy, Denies malaise, Denies night sweats, Denies snoring and Denies weight loss Eyes Denies blurry vision and Denies itchy eyes ENT Denies nasal congestion, Denies post nasal drip, Denies sinus pain, Denies sinus pressure and Denies other ( Thrush) Card Denies chest pain, Denies pedal edema, Denies dyspnea, Denies orthopnea and Denies paroxysmal nocturnal dyspnea Resp Reports cough, Denies hemoptysis, Denies excessive phlegm production, Denies dyspnea, Denies snoring and Denies wheezing GI Denies abdominal pain and Denies heartburn Musc Denies myalgias, Denies arthralgias and Denies joint swelling Skin/Breast Denies rash Neuro Denies memory loss and Denies seizure-like activity Psych Denies abnormal sleep pattern, Denies anxiety and Denies memory loss Endo Denies excessive sweating, Denies fatigue and Denies heat intolerance Glenn/Lymph Denies easy bruising Aller/Immun Denies itchy eyes, Denies seasonal rhinorrhea and Denies wheezing Physical Exam Vital Signs: Last Vital Signs Pulse 81 10/01/22 11:13 BP 122/78 10/01/22 11:13 Pulse Ox 96 10/01/22 11:13 Oxygen Delivery Method Room Air 10/01/22 11:13 BMI result Body Mass Index 35.2 Const General: no acute distress and alert Nutritional Appearance: obese Orientation/consciousness: Other orientation findings ( oriented) HEENT Head: Yes atraumatic Eyes General: appearance normal, both eyes and all related structures Sclerae: sclerae normal EOM: EOMs intact bilaterally Neck Neck: Yes supple Lymphatic: no lymphadenopathy noted Resp Effort & Inspection: normal respiratory effort and no use of accessory muscles Auscultation: clear to auscultation bilaterally Cardio Rate: regular rate Rhythm: regular rhythm Heart sounds: no gallops, no murmurs and no rubs Skin General skin exam: other ( warm) Extrem General: No clubbing, No cyanosis and No edema Assessment & Plan Assessment & Plan (1) Asthma: Code(s): J45.909 - Unspecified asthma, uncomplicated Plan: Suboptimally controlled as patient has missed his Xolair injections for 2 months. Restart Xolair. Continue Breo and albuterol MDI. (2) Environmental allergies: Code(s): Z91.09 - Other allergy status, other than to drugs and biological substances Plan: Expect to improve with restarting Xolair. (3) DEANDRE on CPAP: Code(s): G47.33 - Obstructive sleep apnea (adult) (pediatric); Z99.89 - Dependence on other enabling machines and devices Plan: Well controlled on current CPAP therapy. Continue current CPAP therapy. Coding Level of Care Code Est Pt Level 4 (13886) Diagnoses Asthma J45.909 Environmental allergies Z91.09 DEANDRE on CPAP G47.33; Z99.89
[2022-10-01 11:13] VITALS: BP 122/78; PULSE 81; O2SAT 96; BMI 35.2
== END 2022-10-01 11:23 | disposition home or self-care (01) ==
PROVIDERS: PCP Internal Medicine; Visit Provider Internal Medicine Pulmonary Disease
DX: J45.909 Unspecified asthma, uncomplicated (principal); Z91.09 Other allergy status, other than to drugs and biological substances; G47.33 Obstructive sleep apnea (adult) (pediatric); Z99.89 Dependence on other enabling machines and devices
CPT/HCPCS: 99214

== ENCOUNTER → 2022-10-01 10:55 | Outpatient (BNVA) | payer OTHER, SELFPAY | PROVIDERS: PCP Internal Medicine; Visit Provider Internal Medicine Pulmonary Disease | DX: J45.909 Unspecified asthma, uncomplicated (principal); G47.33 Obstructive sleep apnea (adult) (pediatric); Z91.09 Other allergy status, other than to drugs and biological substances; Z79.899 Other long term (current) drug therapy; Z99.89 Dependence on other enabling machines and devices | CPT/HCPCS: 99212 ==

== ENCOUNTER 2022-12-25 10:46 | Outpatient (REF) | payer OTHER, SELFPAY ==
[2022-12-25 13:50] LABS: Cholesterol 133 mg/dL (<200); HDL Cholesterol 40 mg/dL (>40); LDL Cholesterol Calculated 69 mg/dL (<100); Triglycerides 120 mg/dL (<150)
[2022-12-25 13:54] LABS: Alanine Aminotransferase 17 U/L (0-40); Alkaline Phosphatase 103 U/L (39-117); Anion Gap 11 (12-20); Aspartate Amino Transferase 16 U/L (5-37); Bilirubin Direct 0.2 mg/dL (0.0-0.5); Bilirubin Total 0.4 mg/dL (0.0-1.0); Blood Urea Nitrogen 12 mg/dL (9-16); Calcium 9.6 mg/dL (8.4-10.2); Carbon Dioxide 27 mmol/L (22-29); Chloride 106 mmol/L (96-108); Estimated Glomerular Filt Rate > 60; Glucose Random 117 mg/dL (60-115); Potassium 4.2 mmol/L (3.3-5.1); Sodium 140 mmol/L (135-145); Total Protein 8.2 g/dL (6.5-8.0)
[2022-12-25 14:40] LABS: Reflex LDLD? No
== END 2022-12-25 10:47 | disposition home or self-care (01) ==
LOC: HO.HHCL 10:46
PROVIDERS: Visit Provider Internal Medicine
DX: I10 Essential (primary) hypertension (principal); E78.2 Mixed hyperlipidemia; E11.69 Type 2 diabetes mellitus with other specified complication
CPT/HCPCS: 36415; 80048; 80061; 80076

== ENCOUNTER 2022-12-27 10:11 | Emergency (ER) | payer OTHER, SELFPAY ==
--- NOTE | ~2022-12-27 | CT_ITS ---
EXAMINATION: CT ABDOMEN AND PELVIS WITH CONTRAST CLINICAL INFORMATION: Right lower quadrant abdominal pain COMPARISON: CT abdomen pelvis 12/20/2021 TECHNIQUE: Multidetector volumetric images were obtained from the superior aspect of the liver through the pubic symphysis following administration 85 mL of Omnipaque 350 intravenous contrast. Sagittal and coronal reformatted images were obtained on the technologist's workstation. Oral contrast: No This CT examination was performed using dose optimization techniques as appropriate, variously including the following: *Automated exposure control *Adjustment of mA and/or kV according to patient size (this includes techniques or standardized protocols for targeted exams where dose is matched to indication/reason for exam; i.e. extremities or head) *Use of iterative reconstruction technique DLP: 663 mGy-cm FINDINGS: LUNG BASES: Status post median sternotomy. Heart size upper limits of normal. Bibasilar atelectasis is present. No effusions or infiltrates. Previously seen 1.4 cm density in the right costophrenic angle is no longer present. LIVER, GALLBLADDER, AND BILIARY TREE: The liver is normal in size, shape, and attenuation. A small 7 mm hepatic cyst is noted and unchanged. No worrisome solid focal hepatic lesion or biliary ductal dilatation is present. The gallbladder is unremarkable with no evidence of radiopaque gallstones, gallbladder wall thickening, or obvious pericholecystic inflammatory changes. PANCREAS: Unremarkable. SPLEEN: Unremarkable. ADRENAL GLANDS: Unremarkable. KIDNEYS AND URETERS: Multiple obstructing calculi are present in the distal right ureter associated with marked perinephric stranding and right-sided hydronephrosis. No definite intrarenal calculi are seen. Multiple bilateral benign Bosniak class I renal cysts are noted, the largest measuring 6.7 cm in the right upper pole which require no additional imaging or follow-up. No solid renal masses are seen. BLADDER: In addition to the distal right ureteral calculi, small calculus is seen in the right UVJ. GASTROINTESTINAL TRACT: A small hiatal hernia is again noted. Marked diverticular changes are present especially in the sigmoid without evidence of diverticulitis. The small and large bowel are otherwise unremarkable. The appendix is unremarkable. ABDOMINAL WALL: No significant hernia is appreciated. LYMPH NODES: No retroperitoneal lymphadenopathy is seen. VASCULAR: Calcific atherosclerotic changes are present in the aorta and iliofemoral vessels without aneurysm. PELVIC VISCERA: There is marked BPH. Seminal vesicles are unremarkable. OSSEOUS STRUCTURES: Degenerative changes are present throughout the spine. CT/CT abdomen pelvis w IV con IMPRESSION: 1. Multiple obstructing distal right ureteral calculi with associated right-sided hydronephrosis and perinephric stranding. 2. Other incidental findings as described above including small hiatal hernia, colonic diverticulosis, heart BPH and degenerative changes in the spine. Fleischner guidelines were followed. This critical result was discussed with Heidy Green at 12:45 PM on the day of the exam and it was ascertained that the content and urgency of the report was understood at the time of direct communication.
--- NOTE | 2022-12-27 10:18 | ECG_ITS ---
Test Reason : ABD PAIN Blood Pressure : / mmHG Vent. Rate : 067 BPM Atrial Rate : 067 BPM P-R Int : 162 ms QRS Dur : 102 ms QT Int : 412 ms P-R-T Axes : 072 077 050 degrees QTc Int : 435 ms Normal sinus rhythm with sinus arrhythmia Nonspecific ST abnormality Abnormal ECG When compared with ECG of 28-MAY-2022 09:34, Nonspecific T wave abnormality Lateral leads Referred By: Pau Green Electronically Signed By:KIRSTIN VARGAS MD
--- NOTE | 2022-12-27 10:20 | ED.ABDPAIN ---
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 No diarrhea. Last BM was this morning and normal. No urinary symptoms, fevers or chills. No previous abdominal surgical history Related Data Home Medications Medication Instructions Recorded Confirmed cetirizine 10 mg tablet 5 mg PO DAILY PRN 02/07/20 08/01/22 escitalopram oxalate 10 mg tablet 10 mg PO DAILY 02/07/20 08/01/22 finasteride 5 mg tablet 5 mg PO DAILY 02/07/20 08/01/22 metformin 1,000 mg tablet 1,000 mg PO BID 02/07/20 08/01/22 nitroglycerin 0.4 mg sublingual 0.4 mg sublingual Q5M PRN 02/07/20 08/01/22 tablet omeprazole 20 mg capsule,delayed 20 mg PO DAILY 02/07/20 08/01/22 release trazodone 50 mg tablet 50 mg PO BEDTIME PRN 02/07/20 08/01/22 dulaglutide 3 mg/0.5 mL mg subcut QWEEK 10/30/21 08/01/22 subcutaneous pen injector (Trulicity) insulin aspart U-100 100 unit/mL See Rx Instructions subcut 10/30/21 08/01/22 (3 mL) subcutaneous pen (Novolog USEASDIRECTD FlexPen U-100 Insulin aspart) insulin glargine 100 unit/mL (3 80 unit subcut DAILY 10/30/21 08/01/22 mL) subcutaneous pen (Lantus Solostar U-100 Insulin) Previous Rx's Medication Instructions Recorded tramadol 50 mg tablet 50 mg PO Q8H PRN pain #10 tabs 01/14/20 fluticasone furoate 200 1 inh inhalation DAILY 30 days #1 08/30/21 mcg-vilanterol 25 mcg/dose ea inhalation powder (Breo Ellipta) ezetimibe 10 mg tablet 10 mg PO DAILY 90 days #90 tabs 03/23/23 acetaminophen 500 mg capsule 1,000 mg (2 x 500 mg) PO Q8H PRN 05/28/22 pain #30 caps oxycodone 5 mg tablet 5 mg PO Q6H PRN pain #14 tabs 05/28/22 rosuvastatin 20 mg tablet 20 mg PO DAILY 90 days #90 tabs 05/29/22 aspirin 81 mg tablet,delayed 81 mg PO DAILY 90 days #90 tabs 06/02/22 release (Adult Low Dose Aspirin) amlodipine 10 mg tablet 10 mg PO DAILY 90 days #90 tabs 06/26/22 azithromycin 250 mg tablet See Rx Instructions PO .COMPLEX 5 08/01/22 days #6 tabs isosorbide mononitrate 60 mg 60 mg PO QAM #90 tabs 10/06/22 tablet,extended release 24 hr cilostazol 100 mg tablet 100 mg PO BID #180 tabs 10/30/22 irbesartan 150 mg tablet 150 mg PO QAM #90 tabs 10/30/22 metoprolol tartrate 50 mg tablet 50 mg PO BID #180 tabs 10/30/22 omalizumab 150 mg/mL subcutaneous 150 mg subcut Q2W 28 days #2 mL 11/10/22 syringe omalizumab 75 mg/0.5 mL 75 mg (0.5 mL) subcut Q2W 28 days 11/10/22 subcutaneous syringe #1 mL oxycodone 5 mg tablet 5 mg PO Q8H PRN pain #9 tabs 12/27/22 tamsulosin 0.4 mg capsule (Flomax) 0.4 mg PO DAILY #30 caps 12/27/22 Allergies Allergy/AdvReac Type Severity Reaction Status Date / Time No Known Allergies Allergy Verified 10/01/22 11:16 [No Known Allergies*] Review of Systems Review of Systems Yes all other systems are reviewed and are negative Constitutional: Reports no additional constitutional complaints, Denies body ache(s), Denies chills, Denies fever(s), Denies headache(s) and Denies weakness Eyes: Reports no additional eye complaints and Denies change in vision Reports system reviewed and no additional complaints, except as documented, Denies dizziness, Denies headache(s), Denies nasal congestion, Denies nasal discharge and Denies neck pain Cardiovascular: Reports no additional cardiovascular complaints, Denies chest pain, Denies leg edema and Denies dyspnea Respiratory: Reports no additional respiratory complaints, Denies cough and Denies dyspnea Gastrointestinal: Reports no additional gastrointestinal complaints, Reports abdominal pain, Denies diarrhea, Reports nausea and Reports vomiting Genitourinary: Denies urinary incontinence Musculoskeletal: Reports no additional musculoskeletal complaints, Denies back pain, Denies arthralgias, Denies joint swelling, Denies neck pain, Denies numbness and Denies tingling Skin/Breast: Reports system reviewed and no additional complaints, except as docu and Denies rash Reports system reviewed and no additional complaints, except as documented, Denies Abnormal speech present, Denies dizziness, Denies headache(s), Denies numbness, Denies tingling and Denies weakness PMFSH Past Medical History Attestation statement: The following information was validated with the patient. Source: old records reviewed and nursing notes reviewed Medical History Hyperthyroidism Multinodular thyroid HLD (hyperlipidemia) HTN (hypertension) Obesity NSTEMI (non-ST elevated myocardial infarction) CAD (coronary artery disease) Diabetes mellitus Myocardial infarct Surgical History Hx of ultrasound guided needle biopsy Hx of CABG (~07/2016) Family History Family History Mother Cardiovascular disease Father Medical history unknown Social History Social History Alcohol intake: current Alcohol intake frequency: does not drink Patient Tobacco Use Status: Never used Tobacco Smoked in Last 30 Days: No Use of substances other than those prescribed or required for medical reasons: No Advance Directives: No Physical Exam ED Vital Signs: Vital Signs - 24 hr 12/27/22 10:30 12/27/22 12:47 12/27/22 14:02 Temperature 97.6 F 98.0 F Pulse Rate 71 79 85 Respiratory Rate 22 H 16 16 Blood Pressure 209/88 H 224/97 H 190/74 H Pulse Oximetry 98 97 96 Oxygen Delivery Method Room Air Room Air Room Air BMI result Body Mass Index 35.7 Const General: cooperative, healthy appearing, comfortable and no acute distress Orientation/consciousness: patient oriented x3 Limitations: no limitations HENMT Head: Yes normal to inspection Ears: hearing grossly normal bilaterally General nose exam: Normal external nose present Face and sinus: Yes normal facial exam Mouth: Normal oral and palatal mucosa present Throat: Yes posterior oropharynx normal Eyes General: appearance normal, both eyes and all related structures Pupils: Equal, round and reactive pupils present Neck Neck: Yes normal visual inspection Chest Chest palpation & inspection: normal inspection of the chest Resp Effort & Inspection: normal respiratory effort Auscultation: clear to auscultation bilaterally Cardio Rate: regular rate Rhythm: regular rhythm Peripheral pulses: Peripheral pulses 2+ throughout GI Inspection: Yes normal to inspection Palpation (GI): Soft to palpation, Tenderness to palpation present (GI) in the RLQ and Guarding due to palpation present (GI) Auscultation: normal bowel sounds Back/Spine/Pelvis Thoracic/Lumbar Spine: thoracic and lumbar spine normal to inspection Skin General skin exam: no rashes or lesions noted Neuro General: patient oriented x3, no focal motor deficits and normal sensation to monofilament Cranial nerves: Yes Equal, round and reactive pupils present Cognition (Neuro): normal cognition Speech: No Abnormal speech present Gait exam (Neuro): Normal gait present Motor exam (neuro): 5/5 motor strength present throughout Extrem General: Yes normal to inspection Course Course Course Narrative: 1300-COVID positive. No hypoxia or tachypnea. Patient reports URI symptoms for the last [address] of the abdomen and pelvis shows multiple obstructing distal right calculi with associated right-sided hydronephrosis and perinephric standing. Normal renal function. UA noninfected. Continued pain. Will re-medicate and reassess Reevaluation(s) Reevaluation #1: 1500-pain is improved. Patient tolerating p.o. with no additional vomiting. Patient and family are comfortable with patient being discharged with analgesia. Reviewed worrisome signs and symptoms of when to return to the emergency room. Comfortable plan for discharge home Medical Decision Making Medical Decision Making MDM Narrative: 72-year-old male with history of coronary disease, diabetes, hypertension, hyperlipidemia here with complaints of generalized abdominal pain more focal in the right lower quadrant which began this morning with waking with nausea and vomiting.? No diarrhea.? Last BM was this morning and normal.? No urinary symptoms, fevers or chills. No previous abdominal surgical history Tenderness to right lower quadrant on exam with some guarding. Patient is hypertensive. Patient appears to be quite uncomfortable. Hypertension may be secondary to pain also patient did not take his morning medications which include antihypertensives. Will obtain labs, UA, CT abdomen and pelvis, Will provide analgesia, antiemetic Will recheck blood pressure when pain is improved Differential Diagnosis Differential Diagnoses: The differential diagnosis associated with the presentation includes Appendicitis, diverticulitis, bowel obstruction Admission/Observation Consideration of admission/observation: Escalation of care including admission/observation considered Consult Healthcare Provider Management of the patient was discussed with: Customer Relationship Specialist I spoke to Dr. Carney in regards to the patient's case. He will follow-up with him outpatient Lab Data MDM Lab Attestation statement: I reviewed the patient's lab results. 12/27/22 11:13 12/27/22 11:13 Labs: Lab Results 12/27/22 12/27/22 12/27/22 Range/Units 10:20 10:30 11:11 WBC (4.8-10.8) X10*3/uL RBC (4.60-5.80) X10*6/uL Hgb (14.0-18.0) g/dl Hct (42.0-52.0) % MCV (80.0-98.0) fL MCH (27.0-33.0) pg MCHC (31.0-36.0) g/dl RDW (11.0-16.0) % Plt Count (160-400) X10*3/uL MPV (9.4-12.4) fL Immature Gran % (Auto) (0.0-0.4) % Neut % (Auto) (45-73) % Lymph % (Auto) (20-40) % [place] % (Auto) (2-11) % Eos % (Auto) (0-4) % Baso % (Auto) (0-2) % Lymph # (Auto) (1.2-4.9) X10*3/uL [place] # (Auto) (0.1-1.2) X10*3/uL Eos # (Auto) (0.0-0.4) X10*3/uL Baso # (Auto) (0.0-0.2) X10*3/uL Abs Immat Gran (auto) (0.00-0.03) X10*3/uL Absolute Neuts (auto) (2.0-8.3) x10*3/uL Absolute Nucleated RBC (0.0-0.012) X10*3/uL Nucleated RBC % (auto) (0.0-0.2) /100WBC PT (11.1-13.3) SEC INR (0.9-1.1) Sodium (135-145) mmol/L Potassium (3.3-5.1) mmol/L Chloride (96-108) mmol/L Carbon Dioxide (22-29) mmol/L Anion Gap (12-20) BUN (9-16) mg/dL Creatinine (0.5-1.4) mg/dL Estim Creat Clear Calc Estimated GFR POC Glucose 258 H (60-115) mg/dL Random Glucose (60-115) mg/dL Calcium (8.4-10.2) mg/dL Total Bilirubin (0.0-1.0) mg/dL Direct Bilirubin (0.0-0.5) mg/dL AST (5-37) U/L ALT (0-40) U/L Alkaline Phosphatase (39-117) U/L Troponin I High Sens (<3.5-35.0) ng/L Total Protein (6.5-8.0) g/dL Albumin (3.5-5.0) g/dL Lipase (8-78) U/L Urine Color Yellow Urine Appearance Clear Urine pH 7.5 (5.0-9.0) Ur Specific [place] 1.015 (1.005-1.025) Urine Protein 100 (2+) H (Neg-Trace) mg/dL Urine Glucose (UA) >=1000 H (Negative) mg/dL Urine Ketones Negative (Negative) mg/dL Urine Blood Trace H (Negative) Urine Nitrite Negative (Negative) Ur Leukocyte Esterase Negative (Negative) Urine RBC 3-5 H (0-2) /HPF Urine WBC 0-5 (0-5) /HPF Ur Squamous Epith Cells 0-2 (0-2) /HPF Urine Bacteria None Seen (None Seen) Hyaline Casts 0-2 (0-2) /LPF Influenza Type A (PCR) NEGATIVE (Negative) Influenza Type B (PCR) NEGATIVE (Negative) RSV RNA Qual (PCR) NEGATIVE (Negative) SARS-CoV-2 RNA (RT-PCR) POSITIVE A (Negative) 12/27/22 Range/Units 11:13 WBC 9.1 (4.8-10.8) X10*3/uL RBC 5.53 (4.60-5.80) X10*6/uL Hgb 15.3 (14.0-18.0) g/dl Hct 45.8 (42.0-52.0) % MCV 82.8 (80.0-98.0) fL MCH 27.7 (27.0-33.0) pg MCHC 33.4 (31.0-36.0) g/dl RDW 14.6 (11.0-16.0) % Plt Count 279 (160-400) X10*3/uL MPV 8.9 L (9.4-12.4) fL Immature Gran % (Auto) 0.5 H (0.0-0.4) % Neut % (Auto) 72.5 (45-73) % Lymph % (Auto) 19.9 L (20-40) % [place] % (Auto) 5.9 (2-11) % Eos % (Auto) 1.0 (0-4) % Baso % (Auto) 0.2 (0-2) % Lymph # (Auto) 1.8 (1.2-4.9) X10*3/uL [place] # (Auto) 0.5 (0.1-1.2) X10*3/uL Eos # (Auto) 0.1 (0.0-0.4) X10*3/uL Baso # (Auto) 0.0 (0.0-0.2) X10*3/uL Abs Immat Gran (auto) 0.05 H (0.00-0.03) X10*3/uL Absolute Neuts (auto) 6.6 (2.0-8.3) x10*3/uL Absolute Nucleated RBC 0.000 (0.0-0.012) X10*3/uL Nucleated RBC % (auto) 0.0 (0.0-0.2) /100WBC PT 10.9 L (11.1-13.3) SEC INR 0.9 (0.9-1.1) Sodium 138 (135-145) mmol/L Potassium 4.2 (3.3-5.1) mmol/L Chloride 103 (96-108) mmol/L Carbon Dioxide 26 (22-29) mmol/L Anion Gap 13 (12-20) BUN 16 (9-16) mg/dL Creatinine 1.21 (0.5-1.4) mg/dL Estim Creat Clear Calc 59.4 Estimated GFR 59 POC Glucose (60-115) mg/dL Random Glucose 307 H (60-115) mg/dL Calcium 9.5 (8.4-10.2) mg/dL Total Bilirubin 0.4 (0.0-1.0) mg/dL Direct Bilirubin 0.1 (0.0-0.5) mg/dL AST 20 (5-37) U/L ALT 22 (0-40) U/L Alkaline Phosphatase 111 (39-117) U/L Troponin I High Sens 4.1 (<3.5-35.0) ng/L Total Protein 8.4 H (6.5-8.0) g/dL Albumin 4.0 (3.5-5.0) g/dL Lipase 37 (8-78) U/L Urine Color Urine Appearance Urine pH (5.0-9.0) Ur Specific [place] (1.005-1.025) Urine Protein (Neg-Trace) mg/dL Urine Glucose (UA) (Negative) mg/dL Urine Ketones (Negative) mg/dL Urine Blood (Negative) Urine Nitrite (Negative) Ur Leukocyte Esterase (Negative) Urine RBC (0-2) /HPF Urine WBC (0-5) /HPF Ur Squamous Epith Cells (0-2) /HPF Urine Bacteria (None Seen) Hyaline Casts (0-2) /LPF Influenza Type A (PCR) (Negative) Influenza Type B (PCR) (Negative) RSV RNA Qual (PCR) (Negative) SARS-CoV-2 RNA (RT-PCR) (Negative) Independent Interpretation I performed an independent interpretation of an: EKG and CT Scan Interpretation: I independently reviewed the EKG which shows normal sinus rhythm with a rate of 67, normal ME, normal QRS normal QT I independently reviewed the CT scan agree with the radiology report Radiology Impression Discussion of test interpretation with radiology: I have reviewed the radiologist's reading. Radiologist Impression: Len Franks??72??M??1950 ? Allergy/Adv: No Known Allergies Close Abdomen/Pelvis CT (Signed) James Cota - 12/27/22 Shoulder X-Ray (Signed) AnhNathan valladaresip - 05/28/22 Humerus X-Ray (Signed) Jose GMicha [facility] [address] [address] [address] Scan Report Signed Patient: Len Franks MR#: [id number] : 1950 Acct:[id number] Age/Sex: 72 / M ADM Date: 12/27/22 Loc: HO.ED Attending Dr: Ordering Physician: Pau Zhang NP Date of Service: 12/27/22 Procedure(s): CT abdomen pelvis w IV con Accession Number(s): [id number] cc: Darius Gonzales MD; Pau Zhang NP~ EXAMINATION: CT ABDOMEN AND PELVIS WITH CONTRAST CLINICAL INFORMATION: Right lower quadrant abdominal pain COMPARISON: CT abdomen pelvis 12/20/2021 TECHNIQUE: Multidetector volumetric images were obtained from the superior aspect of the liver through the pubic symphysis following administration 85 mL of Omnipaque 350 intravenous contrast. Sagittal and coronal reformatted images were obtained on the technologist's workstation. Oral contrast: No This CT examination was performed using dose optimization techniques as appropriate, variously including the following: *Automated exposure control *Adjustment of mA and/or kV according to patient size (this includes techniques or standardized protocols for targeted exams where dose is matched to indication/reason for exam; i.e. extremities or head) *Use of iterative reconstruction technique DLP: 663 mGy-cm FINDINGS: LUNG BASES: Status post median sternotomy. Heart size upper limits of normal. Bibasilar atelectasis is present. No effusions or infiltrates. Previously seen 1.4 cm density in the right costophrenic angle is no longer present. LIVER, GALLBLADDER, AND BILIARY TREE: The liver is normal in size, shape, and attenuation. A small 7 mm hepatic cyst is noted and unchanged. No worrisome solid focal hepatic lesion or biliary ductal dilatation is present. The gallbladder is unremarkable with no evidence of radiopaque gallstones, gallbladder wall thickening, or obvious pericholecystic inflammatory changes. PANCREAS: Unremarkable. SPLEEN: Unremarkable. ADRENAL GLANDS: Unremarkable. KIDNEYS AND URETERS: Multiple obstructing calculi are present in the distal right ureter associated with marked perinephric stranding and right-sided hydronephrosis. No definite intrarenal calculi are seen. Multiple bilateral benign Bosniak class I renal cysts are noted, the largest measuring 6.7 cm in the right upper pole which require no additional imaging or follow-up. No solid renal masses are seen. BLADDER: In addition to the distal right ureteral calculi, small calculus is seen in the right UVJ. GASTROINTESTINAL TRACT: A small hiatal hernia is again noted. Marked diverticular changes are present especially in the sigmoid without evidence of diverticulitis. The small and large bowel are otherwise unremarkable. The appendix is unremarkable. ABDOMINAL WALL: No significant hernia is appreciated. LYMPH NODES: No retroperitoneal lymphadenopathy is seen. VASCULAR: Calcific atherosclerotic changes are present in the aorta and iliofemoral vessels without aneurysm. PELVIC VISCERA: There is marked BPH. Seminal vesicles are unremarkable. OSSEOUS STRUCTURES: Degenerative changes are present throughout the spine. CT/CT abdomen pelvis w IV con IMPRESSION: 1. Multiple obstructing distal right ureteral calculi with associated right-sided hydronephrosis and perinephric stranding. 2. Other incidental findings as described above including small hiatal hernia, colonic diverticulosis, heart BPH and degenerative changes in the spine. Fleischner guidelines were followed. This critical result was discussed with Heidy Green at 12:45 PM on the day of the exam and it was ascertained that the content and urgency of the report was understood at the time of direct communication. Independent Historian Clinical information obtained from an independent historian. History obtained from or confirmed by: Spouse and EMS Medications Administered Discontinued Medications Generic Name Dose Route Start Last Admin Trade Name Freq PRN Reason Stop Dose Admin Sodium Chloride 1,000 mls @ 999 mls/hr 12/27/22 10:47 12/27/22 12:56 Ns IV 12/27/22 11:47 Infused .Q1H1M STA Infusion Iohexol 85 ml 12/27/22 12:20 12/27/22 12:21 Iohexol 350 Mg/Ml 100 Ml Infus..Btl IV 12/27/22 12:21 85 ml ONCE ONE Administration Ketorolac Tromethamine 30 mg 12/27/22 12:50 12/27/22 13:09 Ketorolac Tromethamine 30 Mg/Ml Vial IVPUSH 12/27/22 12:51 30 mg ONCE ONE Administration Morphine Sulfate 4 mg 12/27/22 10:47 12/27/22 11:05 Morphine Sulfate 4 Mg/Ml Cartridge IVPUSH 12/27/22 10:48 4 mg ONCE ONE Administration Protocol Ondansetron HCl 4 mg 12/27/22 10:47 12/27/22 11:04 Ondansetron Hcl 4 Mg/2 Ml Vial IVPUSH 12/27/22 10:48 4 mg ONCE ONE Administration Discharge Plan Discharge Clinical Impression: COVID-19, Renal colic Patient Disposition: Home, Self-Care Instructions: Renal Colic (ED), COVID-19 (Coronavirus Disease 2019) (ED) Additional Instructions: increase fluids at home Return for pain not relieved with home medication, vomiting, fever call urology to follow-up with on Thursday aumentar l?quidos en casa Regrese por dolor que no se phani con medicamentos caseros, v?mitos, fiebre. llamar a urolog?a para hacer seguimiento el Prescriptions: New tamsulosin [Flomax] 0.4 mg capsule 0.4 mg PO DAILY Qty: 30 0RF oxycodone 5 mg tablet 5 mg PO Q8H PRN (Reason: pain) Qty: 9 0RF Rx Instructions: Partial Fill upon patient request. No Action ezetimibe 10 mg tablet 10 mg PO DAILY 90 Days Qty: 90 3RF rosuvastatin 20 mg tablet 20 mg PO DAILY 90 Days Qty: 90 3RF aspirin [Adult Low Dose Aspirin] 81 mg tablet,delayed release (DR/EC) 81 mg PO DAILY 90 Days Qty: 90 3RF amlodipine 10 mg tablet 10 mg PO DAILY 90 Days Qty: 90 3RF isosorbide mononitrate 60 mg tablet extended release 24 hr 60 mg PO QAM Qty: 90 3RF metoprolol tartrate 50 mg tablet 50 mg PO BID Qty: 180 3RF cilostazol 100 mg tablet 100 mg PO BID Qty: 180 3RF irbesartan 150 mg tablet 150 mg PO QAM Qty: 90 3RF omalizumab 150 mg/mL syringe 150 mg subcut Q2W 28 Days Qty: 2 12RF omalizumab 75 mg/0.5 mL syringe 75 mg subcut Q2W 28 Days Qty: 1 12RF tramadol 50 mg tablet 50 mg PO Q8H PRN (Reason: pain) Qty: 10 0RF acetaminophen 500 mg capsule 1,000 mg PO Q8H PRN (Reason: pain) Qty: 30 0RF oxycodone 5 mg tablet 5 mg PO Q6H PRN (Reason: pain) Qty: 14 0RF Rx Instructions: Partial Fill upon patient request. escitalopram oxalate 10 mg tablet 10 mg PO DAILY cetirizine 10 mg tablet 5 mg PO DAILY PRN trazodone 50 mg tablet 50 mg PO BEDTIME PRN metformin 1,000 mg tablet 1,000 mg PO BID finasteride 5 mg tablet 5 mg PO DAILY omeprazole 20 mg capsule,delayed release(DR/EC) 20 mg PO DAILY nitroglycerin 0.4 mg tablet, sublingual 0.4 mg sublingual Q5M PRN Rx Instructions: do not exceed 3 doses per episode fluticasone furoate-vilanterol [Breo Ellipta] 200-25 mcg/dose blister with device 1 inh inhalation DAILY 30 Days Qty: 1 6RF Trulicity 3 mg/0.5 mL pen injector subcut QWEEK insulin glargine [Lantus Solostar U-100 Insulin] 100 unit/mL (3 mL) insulin pen 80 unit subcut DAILY insulin aspart U-100 [Novolog FlexPen U-100 Insulin] 100 unit/mL (3 mL) insulin pen See Rx Instructions subcut USEASDIRECTD Rx Instructions: Up to 16 units before units subcutaneously use as directed; azithromycin 250 mg tablet See Rx Instructions PO .COMPLEX 5 Days Qty: 6 0RF Rx Instructions: For 250 mg dose pack: take 500 mg today (day 1), then 250 mg for 4 days (days 2-5) PO Referrals: Cristobal Carney MD [Physician] - 1 week Darius Gonzales MD [Primary Care Provider] - 1 week Print Language: Faroese
[2022-12-27 10:23] LABS: Glucose, Whole Blood 258 mg/dL (60-115)
[2022-12-27 10:30] VITALS: BP 209/88; BP 216/90; PULSE 64; PULSE 71; RESP 22; TEMP 36.4; O2SAT 98; BMI 35.7
--- NOTE | 2022-12-27 10:34 | PC.NURSE ---
pt BIBA from home for sudden LLQ pain. pt a&o x4, calm, and cooperative. appears in pain. pt poc taken on arrival and documented 258. Pau, BED SPRING MAKER aware. pt hypertensive, Pau, BED SPRING MAKER aware. EKG taken. awaiting inside sales account representative for provider examination. call pro within pt reach. pt at bedside. rr even/unlabored. plan of care ongoing.
[2022-12-27 10:39] LABS: Appearance Urine Clear; Color Urine Yellow; Glucose Urine UA >=1000 mg/dL (Negative); Leukocyte Esterase Urine Negative (Negative); Nitrite Urine Negative (Negative); PH 7.5 (5.0-9.0); Specific Gravity - Urine 1.015 (1.005-1.025); UMIC TRIGGER UACC YES; Urine Blood Trace (Negative); Urine Ketones Negative (Negative); Urine Protein 100 (2+) mg/dL (Neg-Trace)
[2022-12-27 10:44] LABS: Bacteria Urine None Seen (None Seen); Hyaline Casts Urine 0-2 /LPF (0-2); Squamous Epithelial Cell Urine 0-2 /HPF (0-2); WBC Urine 0-5 /HPF (0-5)
[2022-12-27] MEDS: ondansetron HCL 4 MG/2 ML VIAL IVPUSH (11:04)
[2022-12-27] MEDS: 0.9 % Sodium Chloride 1,000 ML 999 ML IV (11:04)
[2022-12-27] MEDS: Morphine Sulfate 4 MG/ML CARTRIDGE IVPUSH (11:05)
--- NOTE | 2022-12-27 11:16 | PC.NURSE ---
pt reports RLQ pain, medicated per MAR for 8/10 pain and nausea, 1L NS running. tech at bedside obtaining labs, no new orders at this time.
[2022-12-27 11:18] LABS: MANUAL DIFF FLAG NO
[2022-12-27 11:19] LABS: Basophils Percent Auto 0.2 % (0-2); Eosinophils Absolute Auto 0.1 X10*3/uL (0.0-0.4); Hematocrit 45.8 % (42.0-52.0); Hemoglobin 15.3 g/dl (14.0-18.0); Imm Gran Abs Auto 0.05 X10*3/uL (0.00-0.03); Imm Gran Pct Auto 0.5 % (0.0-0.4); Lymphocytes Absolute Auto 1.8 X10*3/uL (1.2-4.9); Lymphocytes Percent Auto 19.9 % (20-40); Mean Corpuscular HGB Conc 33.4 g/dl (31.0-36.0); Mean Corpuscular Hemoglobin 27.7 pg (27.0-33.0); Mean Corpuscular Volume 82.8 fL (80.0-98.0); Mean Platelet Volume 8.9 fL (9.4-12.4); Monocytes Absolute Auto 0.5 X10*3/uL (0.1-1.2); Monocytes Percent Auto 5.9 % (2-11); Neutrophils Absolute Auto 6.6 x10*3/uL (2.0-8.3); Neutrophils Percent Auto 72.5 % (45-73); Platelet Count 279 X10*3/uL (160-400); Red Blood Count 5.53 X10*6/uL (4.60-5.80); Red Cell Distribution Width 14.6 % (11.0-16.0); White Blood Count 9.1 X10*3/uL (4.8-10.8)
[2022-12-27 11:25] LABS: INTERNATIONAL NORM RATIO 0.9 (0.9-1.1); Prothrombin Time 10.9 SEC (11.1-13.3)
[2022-12-27 11:40] LABS: Alanine Aminotransferase 22 U/L (0-40); Alkaline Phosphatase 111 U/L (39-117); Anion Gap 13 (12-20); Aspartate Amino Transferase 20 U/L (5-37); Bilirubin Direct 0.1 mg/dL (0.0-0.5); Bilirubin Total 0.4 mg/dL (0.0-1.0); Blood Urea Nitrogen 16 mg/dL (9-16); Calcium 9.5 mg/dL (8.4-10.2); Carbon Dioxide 26 mmol/L (22-29); Chloride 103 mmol/L (96-108); Creatinine Clr Calc Pharmacy 59.4; Estimated Glomerular Filt Rate 59; Glucose Random 307 mg/dL (60-115); Lipase 37 U/L (8-78); Potassium 4.2 mmol/L (3.3-5.1); Sodium 138 mmol/L (135-145); Total Protein 8.4 g/dL (6.5-8.0)
[2022-12-27 11:44] LABS: Troponin-I High Sensitivity 4.1 ng/L (<3.5-35.0)
[2022-12-27 11:58] LABS: Influenza A PCR NEGATIVE (Negative); Influenza B PCR NEGATIVE (Negative); Resp Syncy Virus RNA Qual PCR NEGATIVE (Negative); SARS COV2 PCR INHOUSE POSITIVE (Negative)
[2022-12-27] MEDS: iohexoL 350 MG/ML 100 ML INFUS..BTL 85 ML IV (12:21)
[2022-12-27 12:47] VITALS: BP 224/97; PULSE 79; RESP 16; TEMP 36.7; O2SAT 97
[2022-12-27] MEDS: Ketorolac Tromethamine 30 MG/ML VIAL IVPUSH (13:09)
[2022-12-27 14:02] VITALS: BP 190/74; PULSE 85; RESP 16; O2SAT 96
[2022-12-27 15:09] VITALS: BP 178/84; PULSE 83; RESP 18; O2SAT 96
== END 2022-12-27 15:19 | disposition home or self-care (01) ==
PROVIDERS: Nurse Practitioner Family; Emergency Provider Emergency Medicine; PCP Internal Medicine
DX: U07.1 COVID-19 (principal); R10.31 Right lower quadrant pain; E11.9 Type 2 diabetes mellitus without complications; I10 Essential (primary) hypertension; E78.5 Hyperlipidemia, unspecified; G47.33 Obstructive sleep apnea (adult) (pediatric); Z99.89 Dependence on other enabling machines and devices; E66.9 Obesity, unspecified; Z68.35 Body mass index [BMI] 35.0-35.9, adult; Z95.1 Presence of aortocoronary bypass graft; Z79.4 Long term (current) use of insulin; Z79.899 Other long term (current) drug therapy; Z79.82 Long term (current) use of aspirin
CPT/HCPCS: 0241U; 36415; 74177; 80048; 80076; 81001; 82947; 83690; 84484; 85025; 85610; 93005; 96361; 96374; 96375; 99284; 99285; J1885; J2270; J2405; Q9967

== ENCOUNTER 2023-01-29 08:45 | Outpatient (AMB) | payer OTHER, SELFPAY ==
--- NOTE | 2023-01-29 08:54 | MHC.OFFVIS ---
Intake Vital Signs 01/29/23 08:55 Height 5 ft 6 in Weight 213 lb 6.519 oz BMI 34.4 BP 142/62 H Blood Pressure Location Lt brachial Position Sitting Pulse 60 Pulse Source Pulse Oximeter Intake Visit Reasons: 6 month f/u overdue Clothes Presser Required: Yes Clothes Presser Language: It Risk [employer] Assurance Senior Manager Name: coy bennett [id number] Allergies No Known Allergies [No Known Allergies*] Allergy (Verified 01/29/23 08:57) Medication List - Last Reconciled 01/29/23 by ESTEBAN Israel acetaminophen 1,000 mg (2 x 500 mg) PO Q8H PRN amlodipine 10 mg PO DAILY 90 days aspirin (Adult Low Dose Aspirin) 81 mg PO DAILY 90 days azithromycin For 250 mg dose pack: take 500 mg today (day 1), then 250 mg for 4 days (days 2-5) PO 5 days cetirizine 5 mg PO DAILY PRN cilostazol 100 mg PO BID dulaglutide (Trulicity) mg subcut QWEEK escitalopram oxalate 10 mg PO DAILY ezetimibe 10 mg PO DAILY 90 days finasteride 5 mg PO DAILY fluticasone furoate-vilanterol 200-25 mcg/dose (Breo Ellipta) 1 inh inhalation DAILY 30 days insulin aspart U-100 (Novolog FlexPen U-100 Insulin aspart) Up to 16 units before units subcutaneously use as directed; insulin glargine (Lantus Solostar U-100 Insulin) 80 units subcut DAILY irbesartan 150 mg PO QAM isosorbide mononitrate ER 60 mg PO QAM metformin 1,000 mg PO BID metoprolol tartrate 50 mg PO BID nitroglycerin 0.4 mg sublingual Q5M PRN omeprazole 20 mg PO DAILY oxycodone 5 mg PO Q8H PRN rosuvastatin 20 mg PO DAILY 90 days tamsulosin (Flomax) 0.4 mg PO DAILY tramadol 50 mg PO Q8H PRN trazodone 50 mg PO BEDTIME PRN HPI 6 month f/u overdue HPI Details Len is a 72-year-old male past medical history of hypertension, diabetes, hyperlipidemia, obesity, CAD, coronary artery bypass grafting 2017 who presents for follow-up. His last prior visit to our office was 09/23/2021. Today he reports he has been doing well over the last year and a half. He denies any exertional chest discomfort. He does report some discomfort in his chest wall with coughing. No shortness of breath, palpitations, presyncope, syncope, PND, orthopnea. He has some trace edema in his ankles. He remains active each day, no routine exercise. Taking all meds as directed. 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 [facility] Medical History Hyperthyroidism Multinodular thyroid HLD (hyperlipidemia) HTN (hypertension) Obesity NSTEMI (non-ST elevated myocardial infarction) CAD (coronary artery disease) Diabetes mellitus Myocardial infarct Surgical History Hx of ultrasound guided needle biopsy Hx of CABG (~07/2016) Family History Mother Cardiovascular disease Father Medical history unknown Social History Alcohol intake: current Alcohol intake frequency: does not drink Patient Tobacco Use Status: Never used Tobacco Review of Systems Const All systems reviewed & are unremarkable except as noted in HPI and below ENT Denies dizziness Card Details: discomfort in chest at times when he coughs. Intermittent cough due to bronchitis Denies chest pain, Denies chest pain at rest, Denies chest pain with activity, Denies rapid heart rate, Denies pedal edema, Denies edema, Denies leg edema, Denies lightheadedness, Denies palpitations, Denies dyspnea, Denies dyspnea on exertion and Denies orthopnea Resp Denies cough, Denies dyspnea and Denies dyspnea on exertion GI Denies hematochezia and Denies change in stool character Musc Denies abnormal gait, Denies limited range of motion, Denies muscle cramps, Denies muscle weakness, Denies numbness, Denies radiating pain into limb, Denies stiffness and Denies tingling Neuro Denies abnormal gait, Denies dizziness, Denies numbness and Denies tingling Endo Denies palpitations Physical Exam Vital Signs: Last Vital Signs Pulse 60 01/29/23 08:55 BP 142/62 H 01/29/23 08:55 BMI result Body Mass Index 34.4 Const General: cooperative, healthy appearing, comfortable and no acute distress Orientation/consciousness: patient oriented x3 Neck Neck: Yes normal visual inspection Resp Effort & Inspection: normal respiratory effort Auscultation: clear to auscultation bilaterally, no rales, no rhonchi and no wheezes Cardio Jugular venous distension: no JVD Rate: regular rate Rhythm: regular rhythm Heart sounds: S1 normal heart sound present, S2 normal heart sound present, no murmurs and no rubs Neuro General: patient oriented x3 Extrem Other: trace ankle edema General: Yes normal to inspection and No calf tenderness Psych Appearance: grossly normal Mental Status: mental status grossly normal Speech and movement: Normal speech and movement present Assessment & Plan Assessment & Plan (1) CAD (coronary artery disease): Code(s): I25.10 - Atherosclerotic heart disease of [place] coronary artery without angina pectoris Plan: History of CAD with coronary artery bypass grafting 2016. Last echocardiogram done 04/04/2019 shows EF 60-65%, grade 1 diastolic dysfunction, mild AR and mild TR. EKG 12/27/2022 shows sinus rhythm with sinus arrhythmia, no acute ST or T-wave abnormalities, rate 67. Report of atypical sounding chest discomfort which sounds like chest wall occurring when coughing. No exertional symptoms. Continue with risk factor modification including good blood pressure control. Blood pressure initially elevated this visit but improved to 128/80 on recheck. Hemoglobin A1c goal less than 7. [place] LDL goal less than 70. Labs done on 12/25/2022 showed LDL 69. Continue aspirin indefinitely. Continue rosuvastatin and Zetia. Continue metoprolol and isosorbide. Signs and symptoms of angina reviewed. Emergency care if ever needed for symptoms. Cardiology follow-up in 1 year, sooner if needed (2) Hx of CABG: Onset Date: ~07/2016 Comment: in [place], SHETH to LAD, GSV to Diagonal to marginal, GSV to RPDA Code(s): Z95.1 - Presence of aortocoronary bypass graft Plan: As above (3) HTN (hypertension): Code(s): I10 - Essential (primary) hypertension Qualifiers: Hypertension type: primary hypertension Qualified Code(s): I10 - Essential (primary) hypertension Plan: As above. Normal range on recheck. Continue amlodipine, irbesartan, metoprolol, isosorbide. He does have trace ankle edema which is most likely related to amlodipine. If this problem worsens then amlodipine dose can be reduced and other medications adjusted as warranted. (4) HLD (hyperlipidemia): Code(s): E78.5 - Hyperlipidemia, unspecified Qualifiers: Hyperlipidemia type: other hyperlipidemia Qualified Code(s): E78.49 - Other hyperlipidemia Plan: [place] LDL goal less than 70. At goal on last check. Continue rosuvastatin and Zetia. (5) Obesity: Code(s): E66.9 - Obesity, unspecified Qualifiers: Obesity type: due to excess calories Obesity classification: adult class 1 (BMI 30 - 34.9) Serious obesity comorbidity presence: with serious comorbidity Body mass index: BMI 34.0-34.9 Qualified Code(s): E66.09 - Other obesity due to excess calories; Z68.34 - Body mass index [BMI] 34.0-34.9, adult Plan: Benefits of weight loss and routine exercise reviewed with him. Plan Time spent on chart review, documentation, interview and assessment Coding Level of Care Code Est Pt Level 4 (23364) Diagnoses CAD (coronary artery disease) I25.10 Hx of CABG Z95.1 Primary hypertension I10 Hypertension type: primary hypertension Other hyperlipidemia E78.49 Hyperlipidemia type: other hyperlipidemia Class 1 obesity due to excess calories with serious comorbidity and body mass index (BMI) of 34.0 to 34.9 in adult E66.09; Z68.34 Obesity type: due to excess calories Obesity classification: adult class 1 (BMI 30 - 34.9) Serious obesity comorbidity presence: with serious comorbidity Body mass index: BMI 34.0-34.9 Time Spent (min) 28
[2023-01-29 08:55] VITALS: BP 142/62; PULSE 60; BMI 34.4
== END 2023-01-29 09:21 | disposition home or self-care (01) ==
PROVIDERS: PCP Internal Medicine; Referring Provider Internal Medicine; Visit Provider Nurse Practitioner Family
DX: I25.10 Atherosclerotic heart disease of native coronary artery without angina pectoris (principal); Z95.1 Presence of aortocoronary bypass graft; I10 Essential (primary) hypertension; E78.49 Other hyperlipidemia; E66.09 Other obesity due to excess calories; Z68.34 Body mass index [BMI] 34.0-34.9, adult
CPT/HCPCS: 99214

== ENCOUNTER → 2023-01-29 08:45 | Outpatient (BNVA) | payer OTHER, SELFPAY | PROVIDERS: PCP Internal Medicine; Visit Provider Nurse Practitioner Family | DX: I25.10 Atherosclerotic heart disease of native coronary artery without angina pectoris (principal); I10 Essential (primary) hypertension; E78.49 Other hyperlipidemia; E66.09 Other obesity due to excess calories; Z68.34 Body mass index [BMI] 34.0-34.9, adult; Z95.1 Presence of aortocoronary bypass graft | CPT/HCPCS: 99212 ==

== ENCOUNTER 2023-02-23 12:55 | Outpatient (AMB) | payer OTHER, SELFPAY ==
--- NOTE | 2023-02-23 12:56 | MHC.OFFVIS ---
Intake Vital Signs 02/23/23 13:01 Height 5 ft 6 in Weight 211 lb 10.3 oz BMI 34.2 BP 142/67 H Blood Pressure Location Lt brachial Position Sitting Pulse 64 Intake Visit Reasons: Colonoscopy Screening, Hx Tubular Adenoma of colon Intake Note: Len presents in the office as a new patient colo screening. CC: Hx of tubular adenoma of the colon. He gets lots of pains in his stomach. He would like his stomach checked out. He states he sometimes has diarrhea. Shipsmith Required: Yes Shipsmith Name: Donna [phone] Allergies No Known Allergies [No Known Allergies*] Allergy (Verified 02/23/23 13:01) Medication List - Last Reconciled 02/23/23 by Sherie Martinez PA-C acetaminophen 1,000 mg (2 x 500 mg) PO Q8H PRN amlodipine 10 mg PO DAILY 90 days aspirin (Adult Low Dose Aspirin) 81 mg PO DAILY 90 days cetirizine 5 mg PO DAILY PRN cilostazol 100 mg PO BID dulaglutide (Trulicity) mg subcut QWEEK escitalopram oxalate 10 mg PO DAILY ezetimibe 10 mg PO DAILY 90 days finasteride 5 mg PO DAILY fluticasone furoate-vilanterol 200-25 mcg/dose (Breo Ellipta) 1 inh inhalation DAILY 30 days insulin aspart U-100 (Novolog FlexPen U-100 Insulin aspart) Up to 16 units before units subcutaneously use as directed; insulin glargine (Lantus Solostar U-100 Insulin) 80 units subcut DAILY insulin lispro subcut irbesartan 150 mg PO QAM isosorbide mononitrate ER 60 mg PO QAM melatonin 3 mg PO BEDTIME metformin 1,000 mg PO BID metoprolol tartrate 50 mg PO BID nitroglycerin 0.4 mg sublingual Q5M PRN omeprazole 20 mg PO DAILY oxycodone 5 mg PO Q8H PRN rosuvastatin 20 mg PO DAILY 90 days tamsulosin (Flomax) 0.4 mg PO DAILY tramadol 50 mg PO Q8H PRN trazodone 100 mg PO BEDTIME HPI HPI Comments History of Present Illness Details A 72 y/o multiple comorbid illness- hx CABG, HTN-DM-male hx colon polyps- 2014- Dr. Hill- adenoma= attempted repeat x 2- inadequate prep- Bowels are normal Non specific abdominal- pain-has intermittent LQ pain- has history of kidney stones Takes 25 meds- Early satiety Occasional nausea no vomiting No vomiting, hematemesis, hematochezia fever chills PFSH Medical History (Updated 02/23/23 @ 15:09 by Sherie Martinez PA-C) Hyperthyroidism Multinodular thyroid HLD (hyperlipidemia) HTN (hypertension) Obesity NSTEMI (non-ST elevated myocardial infarction) CAD (coronary artery disease) Diabetes mellitus Myocardial infarct Surgical History Hx of colonoscopy Hx of ultrasound guided needle biopsy Hx of CABG (~07/2016) Family History Mother Cardiovascular disease Father Medical history unknown Sister Cancer Brother Cancer Social History (Updated 02/23/23 @ 15:03 by Sherie Martinez PA-C) Alcohol intake: current Alcohol intake frequency: does not drink Patient Tobacco Use Status: Never used Tobacco Current occupational status: unemployed Review of Systems Const All systems reviewed & are unremarkable except as noted in HPI and below Card Denies chest pain and Denies dyspnea Resp Denies dyspnea GI Reports abdominal pain, Reports bloating, Denies hematochezia, Reports early satiety, Reports nausea and Denies vomiting Physical Exam Vital Signs: Last Vital Signs Pulse 64 02/23/23 13:01 BP 142/67 H 02/23/23 13:01 BMI result Body Mass Index 34.2 Const General: cooperative, healthy appearing, comfortable and no acute distress Orientation/consciousness: patient oriented x3 Limitations: language barrier Eyes Sclerae: sclerae normal Resp Effort & Inspection: normal respiratory effort and able to speak in complete sentences Auscultation: clear to auscultation bilaterally, no rales, no rhonchi and no wheezes Cardio Rate: regular rate Rhythm: regular rhythm Heart sounds: S1 normal heart sound present and S2 normal heart sound present GI Inspection: Yes scar Palpation (GI): Soft to palpation, Tenderness to palpation present (GI) (diffuse) in the LLQ and in the LUQ and no guarding Auscultation: normal bowel sounds Skin General skin exam: no rashes or lesions noted Neuro General: patient oriented x3 Extrem General: Yes full ROM Psych Appearance: grossly normal Mental Status: mental status grossly normal Speech and movement: Clear speech present Affect: normal affect Attitude: cooperative Results Reviewed Results Reviewed: CT/CT abdomen pelvis w IV con IMPRESSION: 1. Multiple obstructing distal right ureteral calculi with associated right-sided hydronephrosis and perinephric stranding. 2. Other incidental findings as described above including small hiatal hernia, colonic diverticulosis, heart BPH and degenerative changes in the spine. Fleischner guidelines were followed. This critical result was discussed with Heidy Green at 12:45 PM on the day of the exam and it was ascertained that the content and urgency of the report was understood at the time of direct communication. Assessment & Plan Assessment & Plan (1) Early satiety: Comment: Early satiety, nausea Code(s): R68.81 - Early satiety Plan: GES Encouraged eat small portions remain upright after eating (2) Type 2 diabetes mellitus with unspecified complications: Code(s): E11.8 - Type 2 diabetes mellitus with unspecified complications Plan: Maintain good glucose control (3) Abdominal pain: Comment: diverticulosis kidney stones EGD and colonoscopy- Reviewed procedures, rare risks need for escorted due to anesthesia Code(s): R10.9 - Unspecified abdominal pain Plan: sees urology 02/25 ER protocol diverticulosis/diverticulitis Plan - Fridays 1/2 dose insulin obed before No DM meds morning of procedures GES Orders: Orders NM gastric emptying study Today E11.8 - Type 2 diabetes mellitus with unspecified complications, R68.81 - Early satiety EGD/[place] Combo - GI Use Only Today Medications: New simethicone (Gas Relief (simethicone)) 125 mg PO TID-QID PRN 90 tabs 2RF abdominal distention bisacodyl (Dulcolax (bisacodyl)) Day before procedure, prep day Take 4 tablets by mouth upon awakening followed by large glass of water 20 mg (4 x 5 mg) PO ONCE 1 day 4 tabs 0RF colonoscopy prep Z12.11 - Encounter for screening for malignant neoplasm of colon polyethylene glycol 3350 (Miralax) Take as directed by mouth the day before your procedure. 238 grams PO ONCE 1 day PRN 238 grams 0RF laxative effect Patient Instructions: 72-year-old male diabetic, kidney stones with abdominal pain-may be overlapping symptoms-early satiety, nausea acid reflux EGD and colonoscopy-discussed procedures and rare risks need for escort MiraLax Gatorade prep, reviewed literature Reviewed medications Trulicity must be stopped 1 week prior to colonoscopy-will be scheduled appropriately Half dose insulin evening before No diabetes medication morning of procedures Dietary lifestyle changes simethicone for gas He small portions Remain upright after eating Diverticulosis/diverticulitis ER protocol review Follow-up urology Encouraged to call with any questions or concerns Coding Level of Care Code Tele New Pt Level 4 (14969) Diagnoses Early satiety R68.81 Type 2 diabetes mellitus with unspecified complications E11.8 Abdominal pain R10.9 Time Spent (min) 40 Comment [id number]
[2023-02-23 13:01] VITALS: BP 142/67; PULSE 64; BMI 34.2
== END 2023-02-23 14:31 | disposition home or self-care (01) ==
PROVIDERS: PCP Internal Medicine; Visit Provider Physician Assistant
DX: R68.81 Early satiety (principal); E11.8 Type 2 diabetes mellitus with unspecified complications; R10.9 Unspecified abdominal pain
CPT/HCPCS: 99204

== ENCOUNTER → 2023-02-23 12:55 | Outpatient (BNVA) | payer OTHER, SELFPAY | PROVIDERS: PCP Internal Medicine; Visit Provider Physician Assistant ==

== ENCOUNTER 2023-02-25 13:53 | Outpatient (REF) | payer OTHER, SELFPAY ==
--- NOTE | ~2023-02-25 | XR_ITS ---
EXAMINATION: XR CHEST CLINICAL INFORMATION: Cough. COMPARISON: Chest x-ray 05/28/2022. TECHNIQUE: 2 views of the chest were obtained. FINDINGS: The lungs are well-expanded and clear. Heart size and pulmonary vascularity is normal. There is evidence of previous CABG. No gross bony abnormality seen. XR/XR chest 2V IMPRESSION: Unremarkable chest exam.
== END 2023-02-25 13:54 | disposition home or self-care (01) ==
LOC: HO.HHCX 13:53
PROVIDERS: PCP Internal Medicine; Visit Provider Nurse Practitioner Family
DX: R05.1 Acute cough (principal); N28.1 Cyst of kidney, acquired; N20.0 Calculus of kidney; N13.30 Unspecified hydronephrosis; Z79.899 Other long term (current) drug therapy
CPT/HCPCS: 71046; 81003; 99202

== ENCOUNTER 2023-02-25 13:53 | Outpatient (AMB) | payer OTHER, MEDICAID, SELFPAY ==
--- NOTE | 2023-02-25 14:00 | A.OFFVIS_ITS ---
Intake Intake Visit Reasons: Ureteral stones/ Hydronephrosis Intake Note: New Patient presents for initial visit for ureteral stones/hydronephrosis Urology Medications: none Blood Thinner: aspirin Global Supply Chain Director Required: Yes Accompanied by: Self / Same As Patient Allergies No Known Allergies [No Known Allergies*] Allergy (Verified 02/25/23 14:38) Medication List - Last Reconciled 02/25/23 by MARYJANE Hicks- acetaminophen 1,000 mg (2 x 500 mg) PO Q8H PRN amlodipine 10 mg PO DAILY 90 days aspirin (Adult Low Dose Aspirin) 81 mg PO DAILY 90 days bisacodyl (Dulcolax (bisacodyl)) 20 mg (4 x 5 mg) PO ONCE 1 day cetirizine 5 mg PO DAILY PRN cilostazol 100 mg PO BID dulaglutide (Trulicity) mg subcut QWEEK escitalopram oxalate 10 mg PO DAILY ezetimibe 10 mg PO DAILY 90 days finasteride 5 mg PO DAILY fluticasone furoate-vilanterol 200-25 mcg/dose (Breo Ellipta) 1 inh inhalation D AILY 30 days insulin aspart U-100 (Novolog FlexPen U-100 Insulin aspart) Up to 16 units before units subcutaneously use as directed; insulin glargine (Lantus Solostar U-100 Insulin) 80 units subcut DAILY insulin lispro subcut irbesartan 150 mg PO QAM isosorbide mononitrate ER 60 mg PO QAM melatonin 3 mg PO BEDTIME metformin 1,000 mg PO BID metoprolol tartrate 50 mg PO BID nitroglycerin 0.4 mg sublingual Q5M PRN omeprazole 20 mg PO DAILY oxycodone 5 mg PO Q8H PRN polyethylene glycol 3350 (Miralax) 238 grams PO ONCE PRN 1 day rosuvastatin 20 mg PO DAILY 90 days simethicone (Gas Relief (simethicone)) 125 mg PO TID-QID PRN tamsulosin (Flomax) 0.4 mg PO DAILY tramadol 50 mg PO Q8H PRN trazodone 100 mg PO BEDTIME HPI HPI Comments History of Present Illness Details Len is a 72-year-old Yi-speaking male patient of Dr.Esparza-P aguilera. He has a past medical history of hyperthyroidism, hypertension, hyperlipidemia, obesity, non ST elevated CO, coronary artery disease, and diabetes mellitus. He presents to the office today for follow-up of his nephrolithiasis. In discussion with the patient today he reports having seeked emergency room care approximately 2 months ago for right-sided flank pain he had been experiencing. It appears a CT of the abdomen was ordered and performed. These results reviewed with the patient today. Multiple obstructing calculi are present in the distal right ureter associated with marked perinephric stranding and right-sided hydronephrosis. No definite intrarenal calculi are seen. Multiple bilateral benign Bosniak class I renal cysts are noted, the largest measuring 6.7 cm in the right upper pole which require no additional imaging or follow-up per radiology report. No solid renal masses are seen. In addition to the distal right ureteral calculi, small calculus is seen at the right UVJ. When asked patient continues to report intermittent episodes of right sided flank pain. He reports having finished Flomax that was given to him by ER physician. In office urinalysis results reviewed with the patient today. He denies any previous history of nephrolithiasis and or surgical intervention for nephrolithiasis. He denies urinary urgency, urinary frequency, incontinence, nocturia, hematuria, dysuria, foul smelling urine, changes to urinary stream, fever, and or chills. He is happy with his current voiding parameters. Discussed obtaining CT KUB for further assessment evaluation given pervious CT 12/27/22. FORMERLY [facility] Medical History Hyperthyroidism Multinodular thyroid HLD (hyperlipidemia) HTN (hypertension) Obesity NSTEMI (non-ST elevated myocardial infarction) CAD (coronary artery disease) Diabetes mellitus Myocardial infarct Surgical History Hx of colonoscopy Hx of ultrasound guided needle biopsy Hx of CABG (~07/2016) Family History Mother Cardiovascular disease Father Medical history unknown Sister Cancer Brother Cancer Social History Alcohol intake: current Alcohol intake frequency: does not drink Patient Tobacco Use Status: Never used Tobacco Current occupational status: unemployed Review of Systems Const Reports as per HPI Eyes Reports no additional complaints ENT Reports no additional complaints Card Reports as per HPI Resp Reports no additional complaints GI Reports no additional complaints Reports as per HPI Musc Reports no additional complaints Neuro Reports no additional complaints Psych Reports no additional complaints Endo Reports as per HPI Glenn/Lymph Reports no additional complaints Aller/Immun Reports no additional complaints Physical Exam Const General: cooperative, comfortable, no acute distress, well developed, alert and awake Orientation/consciousness: patient oriented x3 Limitations: no limitations HEENT Head: Yes normal to inspection, Yes normocephalic and Yes atraumatic Ears: hearing grossly normal bilaterally Eyes General: appearance normal, both eyes and all related structures Neck Neck: Yes normal visual inspection and Yes trachea midline Chest Chest palpation & inspection: normal inspection of the chest Resp Effort & Inspection: normal respiratory effort and able to speak in complete sentences Cardio Rate: regular rate GI Inspection: Yes normal to inspection General: Yes no CVA tenderness Back/Spine/Pelvis Back: no CVA tenderness Skin General skin exam: no rashes or lesions noted Neuro General: patient oriented x3 Extrem General: Yes normal to inspection Psych Appearance: grossly normal and well kempt Mental Status: mental status grossly normal Speech and movement: Normal speech and movement present and Clear speech present Affect: normal affect Attitude: cooperative Thought process: Normal thought process present Thought content: Normal thought content present Insight: Fair insight present (Psych) Judgement: Fair judgement present (Psych) Results AMB Urinalysis, Automated UA Leukoctes 0 Erika/uL Last Edit by [employer] on 02/25/23 14:30 UA Nitrite Negative Last Edit by [employer] on 02/25/23 14:30 UA Urobilinogen 0.2 mg/dL Last Edit by [employer] on 02/25/23 14:30 UA Protein 30 mg/dL Last Edit by [employer] on 02/25/23 14:30 UA pH 6.0 Last Edit by [employer] on 02/25/23 14:30 UA Blood 0 Jimbo/uL Last Edit by [employer] on 02/25/23 14:30 UA Specific [place] 1.020 Last Edit by [employer] on 02/25/23 14:30 UA Ketone Negative Last Edit by [employer] on 02/25/23 14:30 UA Bilirubin 0 mg/dL Last Edit by Joce Alcala on 02/25/23 14:30 UA Glucose 500 mg/dL Last Edit by Joce Alcala on 02/25/23 14:30 Results Reviewed Results Reviewed: Laboratory Last Values Urine pH (Auto) 6.0 02/25/23 14:17 Specific [place] (Auto) 1.020 02/25/23 14:17 Urine Protein (Auto) 30 mg/dL 02/25/23 14:17 Glucose (UA)(Auto) 500 mg/dL 02/25/23 14:17 Urine Ketones (Auto) Negative 02/25/23 14:17 Urine Blood (Auto) 0 Jimbo/uL 02/25/23 14:17 Urine Nitrite (Auto) Negative 02/25/23 14:17 Urine Bilirubin (Auto) 0 mg/dL 02/25/23 14:17 Urine Urobilinogen (Auto) 0.2 mg/dL 02/25/23 14:17 Leukocyte Esterase (Auto) 0 Erika/uL 02/25/23 14:17 Date of Service: 12/27/22 EXAMINATION: CT ABDOMEN AND PELVIS WITH CONTRAST FINDINGS: LUNG BASES: Status post median sternotomy. Heart size upper limits of normal. Bibasilar atelectasis is present. No effusions or infiltrates. Previously seen 1.4 cm density in the right costophrenic angle is no longer present. LIVER, GALLBLADDER, AND BILIARY TREE: The liver is normal in size, shape, and attenuation. A small 7 mm hepatic cyst is noted and unchanged. No worrisome solid focal hepatic lesion or biliary ductal dilatation is present. The gallbladder is unremarkable with no evidence of radiopaque gallstones, gallbladder wall thickening, or obvious pericholecystic inflammatory changes. PANCREAS: Unremarkable. SPLEEN: Unremarkable. ADRENAL GLANDS: Unremarkable. KIDNEYS AND URETERS: Multiple obstructing calculi are present in the distal right ureter associated with marked perinephric stranding and right-sided hydronephrosis. No definite intrarenal calculi are seen. Multiple bilateral benign Bosniak class I renal cysts are noted, the largest measuring 6.7 cm in the right upper pole which require no additional imaging or follow-up. No solid renal masses are seen. BLADDER: In addition to the distal right ureteral calculi, small calculus is seen in the right UVJ. GASTROINTESTINAL TRACT: A small hiatal hernia is again noted. Marked diverticular changes are present especially in the sigmoid without evidence of diverticulitis. The small and large bowel are otherwise unremarkable. The appendix is unremarkable. ABDOMINAL WALL: No significant hernia is appreciated. LYMPH NODES: No retroperitoneal lymphadenopathy is seen. VASCULAR: Calcific atherosclerotic changes are present in the aorta and iliofemoral vessels without aneurysm. PELVIC VISCERA: There is marked BPH. Seminal vesicles are unremarkable. OSSEOUS STRUCTURES: Degenerative changes are present throughout the spine. CT/CT abdomen pelvis w IV con IMPRESSION: 1. Multiple obstructing distal right ureteral calculi with associated right-sided hydronephrosis and perinephric stranding. 2. Other incidental findings as described above including small hiatal hernia, colonic diverticulosis, heart BPH and degenerative changes in the spine. Fleischner guidelines were followed. This critical result was discussed with Heidy Green at 12:45 PM on the day of the exam and it was ascertained that the content and urgency of the report was understood at the time of direct communication. Assessment & Plan Assessment & Plan (1) Hydronephrosis: Code(s): N13.30 - Unspecified hydronephrosis (2) Flank pain: Code(s): R10.9 - Unspecified abdominal pain (3) Nephrolithiasis: Code(s): N20.0 - Calculus of kidney Plan In office urinalysis results reviewed with the patient today; as noted above. Recent CT results reviewed with the patient today; as noted above. Patient continues to report intermittent/infrequent episodes of right-sided flank pain Will obtain urgent CT KUB for further assessment evaluation Discussed possible near future surgical intervention Discussed, educated, and stressed the importance of drinking plenty of water daily. Follow-up in 1 week with imaging to be completed prior; or sooner with any issues, concerns, and or questions. Orders: Orders AMB Urinalysis Automated Today Z13.9 - Encounter for screening, unspecified CT kidney stone Today N13.30 - Unspecified hydronephrosis, N20.0 - Calculus of kidney, R10.9 - Unspecified abdominal pain Medications: Changed From tamsulosin (Flomax) 0.4 mg PO DAILY 30 caps 0RF To tamsulosin (Flomax) 0.4 mg PO DAILY 90 days 90 caps 0RF Refilled tamsulosin (Flomax) 0.4 mg PO DAILY 90 days 90 caps 0RF Patient Instructions: The patient had an opportunity to ask questions regarding the treatment plan. All questions were answered. Physical exam, labs, and imaging were discussed and reviewed in detail. As well as risks, benefits, and discussion of treatment choices. No major barriers to understanding were identified. The patient expressed understanding and agreement with the above treatment plan. The patient was made aware they should contact our office by phone for worsening of their current condition, the appearance of new symptoms, or with any questions or concerns. Compliance is encouraged with any medications and follow up testing that is ordered. It is a privilege to be allowed the opportunity to participate in? your urological care.? Again, if you have any questions or concerns If you have any questions or concerns please do not hesitate to contact me. The office is [phone]. This note is constructed using voice recognition software. While every effort has been made to ensure accuracy cardiopulmonary physical therapist errors may have been included. Yours sincerely, VIANEY Hicks Coding Level of Care Code New Pt Level 3 (01981) Diagnoses Hydronephrosis N13.30 Flank pain R10.9 Nephrolithiasis N20.0
== END 2023-02-25 14:47 | disposition home or self-care (01) ==
PROVIDERS: PCP Internal Medicine; Visit Provider Nurse Practitioner Family
DX: N13.30 Unspecified hydronephrosis (principal); R10.9 Unspecified abdominal pain; N20.0 Calculus of kidney
CPT/HCPCS: 99203

== ENCOUNTER 2023-03-02 13:25 | Outpatient (REF) | payer OTHER, SELFPAY ==
--- NOTE | ~2023-03-02 | CT_ITS ---
EXAMINATION: CT KIDNEY STONE CLINICAL INFORMATION: Calculus of kidney. COMPARISON: CT abdomen pelvis 12/27/2022. TECHNIQUE: 5 mm thin axial and reformatted 3 mm thin sagittal and coronal images of abdomen pelvis were obtained without contrast. DLP 557. This CT examination was performed using dose optimization technique as appropriate, variously including the following: Automated exposure control Adjustment of MA and/or KV according to patient size(this includes techniques or standardized protocols for targeted exams where dose is matched to indication/reason for exam; extremities or head. Use of iterative reconstruction techniques. FINDINGS: Lung bases: Heart size is normal. The lung bases are clear. Median sternotomy sutures noted from previous intervention. Liver, ducts and gallbladder: The liver is normal size, contour and density. There is 6 mm hypodensity right hepatic lobe. No additional lesions seen. No intrahepatic ductal dilatation. The gallbladder is unremarkable. Spleen: Unremarkable. Pancreas: Unremarkable. Adrenal glands: Unremarkable. Kidneys and ureter: Both kidneys are normal size, and position. There is a large midpole cyst measuring 8.6 x 6.8 cm. There is a 2.5 cm cyst lower pole left kidney. No radiopaque renal calculi or hydronephrosis seen. No radiopaque ureteral calculi seen either. Nonspecific mild perinephric stranding seen. Abdominal wall: Unremarkable. GI tract: There is scattered stool, gas and diverticuli throughout the colon most prominent in the sigmoid region. No mural thickening or pericolic fat stranding seen. The small bowel loops are normal caliber. Appendix is normal caliber. Pelvis: The prostate gland is mildly enlarged. Periprostatic fat planes are preserved. The urinary bladder appears unremarkable. No free fluid seen. No abnormal pelvic or inguinal lymph nodes. Osseous structures: There are degenerative disc changes L4-L5, L5-S1 disc levels with moderate ventral and posterior spondylosis. There is mild facet joint arthropathy L3-L4, L4-L5 and L5/S1 disc level. CT/CT kidney stone IMPRESSION: No radiopaque renal calculi or hydroureteronephrosis. There is a large right renal and a small lower pole left renal cysts, stable Moderate to significant prostate enlargement. Diffuse colonic diverticulosis most prominent in the sigmoid region without diverticulitis. Mild constipation.
== END 2023-03-02 13:26 | disposition home or self-care (01) ==
LOC: HO.CT 13:25
PROVIDERS: PCP Internal Medicine; Visit Provider Nurse Practitioner Family
DX: N20.0 Calculus of kidney (principal); R10.9 Unspecified abdominal pain; N13.30 Unspecified hydronephrosis
CPT/HCPCS: 74176

== ENCOUNTER → 2023-03-18 07:12 | Outpatient (REF) | payer MEDICARE, MEDICAID, SELFPAY ==
--- NOTE | ~2023-03-18 | NM_ITS ---
EXAMINATION: NC RADIONUCLIDE SOLID FOOD GASTRIC EMPTYING 4-HOUR STUDY CLINICAL INFORMATION: Early satiety. COMPARISON: None TECHNIQUE: A standard meal consisting of 4 oz of Egg Beaters brand tagged with 1000 microcuries Tc-99m Sulfur Colloid, 8 oz water and 2 slices of toast with jelly was administered orally to the patient. Images were obtained using a dual head gamma camera in the anterior and posterior projections over of the stomach immediately post ingestion and at hourly intervals up to 4 hours post ingestion. The anterior and posterior counts at each time interval were averaged using the geometric mean and expressed as percentage of the immediate post ingestion counts. FINDINGS: There is good visualization of activity in the stomach immediately post ingestion. As the study progresses, there is good clearance of activity from the stomach and visualization of progressively increasing small bowel activity. By the end of the study, there is almost no retention noted in the stomach. Retention in the stomach at each time interval was: 1 hour 78% (normal 37%-90%) 2 hours 36% (normal 30%-60%) 3 hours 8% 4 hours 1% (normal 0%-10%) NC/NC gastric emptying study IMPRESSION: Normal 4-hour solid food gastric emptying study. For solid meal, rapid gastric emptying is less than 30% at 60 minutes. Delayed gastric emptying criteria is more than 60% remaining at 120 minutes or more than 10% at 240 minutes. The 4-hour value is the best discriminator of a normal or abnormal result). Gastric emptying study grading per JNMT Consensus Recommendations in 2008 (https://tech.snmjournals.org/content/36/144) Grade 1 (mild retention): 11-20% at 4h Grade 2 (moderate retention): 21-35% at 4h Grade 3 (severe retention): 36-50% at 4h Grade 4 (very severe retention): >50% retention at 4h
== END ==
LOC: HO.NUCMED 07:12
PROVIDERS: PCP Internal Medicine; Visit Provider Physician Assistant
DX: R68.81 Early satiety (principal); E11.8 Type 2 diabetes mellitus with unspecified complications
CPT/HCPCS: 78264; A9541

== ENCOUNTER 2023-04-09 10:43 | Outpatient (AMB) | payer MEDICARE, MEDICAID, SELFPAY ==
[2023-04-09 10:46] VITALS: BP 136/64; PULSE 60; O2SAT 97; BMI 35.4
--- NOTE | 2023-04-09 10:46 | A.OFFVIS_ITS ---
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 His symptoms were previously well controlled on Xolair, Breo, and albuterol MDI. However, over the last for the 6 months his Xolair was no longer scheduled in his symptom control has lapsed. He is also complaining of significant nonproductive cough and GERD symptoms. FORMERLY [facility], [facility] Medical History Hyperthyroidism Multinodular thyroid HLD (hyperlipidemia) HTN (hypertension) Obesity NSTEMI (non-ST elevated myocardial infarction) CAD (coronary artery disease) Diabetes mellitus Myocardial infarct Surgical History Hx of colonoscopy Hx of ultrasound guided needle biopsy Hx of CABG (~07/2016) Family History Mother Cardiovascular disease Father Medical history unknown Sister Cancer Brother Cancer Social History Alcohol intake: current Alcohol intake frequency: does not drink Patient Tobacco Use Status: Never used Tobacco Current occupational status: unemployed Review of Systems Const Denies daytime sleepiness, Denies excessive sweating, Denies fatigue, Denies fever(s), Denies lethargy, Denies malaise, Denies night sweats, Denies snoring and Denies weight loss Eyes Denies blurry vision and Denies itchy eyes ENT Denies nasal congestion, Denies post nasal drip, Denies sinus pain, Denies sinus pressure and Denies other ( Thrush) Card Denies chest pain, Denies pedal edema, Denies dyspnea, Denies orthopnea and Denies paroxysmal nocturnal dyspnea Resp Reports cough, Denies hemoptysis, Denies excessive phlegm production, Denies dyspnea, Denies snoring and Denies wheezing GI Denies abdominal pain and Denies heartburn Musc Denies myalgias, Denies arthralgias and Denies joint swelling Skin/Breast Denies rash Neuro Denies memory loss and Denies seizure-like activity Psych Denies abnormal sleep pattern, Denies anxiety and Denies memory loss Endo Denies excessive sweating, Denies fatigue and Denies heat intolerance Glenn/Lymph Denies easy bruising Aller/Immun Denies itchy eyes, Denies seasonal rhinorrhea and Denies wheezing Physical Exam Vital Signs: Last Vital Signs Pulse 60 04/09/23 10:46 BP 136/64 04/09/23 10:46 Pulse Ox 97 04/09/23 10:46 Oxygen Delivery Method Room Air 04/09/23 10:46 BMI result Body Mass Index 35.4 Const General: no acute distress and alert Nutritional Appearance: not obese Orientation/consciousness: Other orientation findings ( oriented) HEENT Head: Yes atraumatic Eyes General: appearance normal, both eyes and all related structures Sclerae: sclerae normal EOM: EOMs intact bilaterally Neck Neck: Yes supple Lymphatic: no lymphadenopathy noted Resp Effort & Inspection: normal respiratory effort and no use of accessory muscles Auscultation: clear to auscultation bilaterally Cardio Rate: regular rate Rhythm: regular rhythm Heart sounds: no gallops, no murmurs and no rubs Skin General skin exam: other ( warm) Extrem General: No clubbing, No cyanosis and No edema Assessment & Plan Assessment & Plan (1) Asthma: Code(s): J45.909 - Unspecified asthma, uncomplicated Plan: Suboptimal control as patient was not restarted on Xolair. Restart Xolair. Continue Breo and albuterol MDI. (2) Environmental allergies: Code(s): Z91.09 - Other allergy status, other than to drugs and biological substances Plan: Significantly worsening control of Xolair. Restart Xolair. (3) DEANDRE on CPAP: Code(s): G47.33 - Obstructive sleep apnea (adult) (pediatric); Z99.89 - Dependence on other enabling machines and devices Plan: Well controlled on CPAP therapy. Patient is awaiting receipt of a replacement machine. (4) GERD (gastroesophageal reflux disease): Code(s): K21.9 - Gastro-esophageal reflux disease without esophagitis Plan: Worsening acid reflux. Will increase PPI to omeprazole 40 mg twice a day. Medications: Changed From omeprazole 20 mg PO DAILY To omeprazole 40 mg PO BID 30 days 60 caps 6RF Coding Level of Care Code Est Pt Level 4 (75646) Diagnoses Asthma J45.909 Environmental allergies Z91.09 DEANDRE on CPAP G47.33; Z99.89 GERD (gastroesophageal reflux disease) K21.9
== END 2023-04-09 11:03 | disposition home or self-care (01) ==
PROVIDERS: PCP Internal Medicine; Visit Provider Internal Medicine Pulmonary Disease
DX: J45.909 Unspecified asthma, uncomplicated (principal); Z91.09 Other allergy status, other than to drugs and biological substances; G47.33 Obstructive sleep apnea (adult) (pediatric); Z99.89 Dependence on other enabling machines and devices; K21.9 Gastro-esophageal reflux disease without esophagitis
CPT/HCPCS: 99214

== ENCOUNTER → 2023-04-09 10:43 | Outpatient (BNVA) | payer MEDICARE, MEDICAID, SELFPAY | PROVIDERS: PCP Internal Medicine; Visit Provider Internal Medicine Pulmonary Disease | DX: J45.909 Unspecified asthma, uncomplicated (principal); G47.33 Obstructive sleep apnea (adult) (pediatric); K21.9 Gastro-esophageal reflux disease without esophagitis; Z91.09 Other allergy status, other than to drugs and biological substances; Z99.89 Dependence on other enabling machines and devices | CPT/HCPCS: 99212 ==

== ENCOUNTER 2023-04-24 09:02 | Outpatient (REF) | payer MEDICARE, MEDICAID, SELFPAY ==
[2023-04-24 09:03] VITALS: BP 144/54; PULSE 55; RESP 16; TEMP 36.8; O2SAT 97
== END 2023-04-24 09:03 | disposition home or self-care (01) ==
LOC: HO.MDS 09:02
PROVIDERS: Visit Provider Internal Medicine Pulmonary Disease
DX: J45.50 Severe persistent asthma, uncomplicated (principal)
CPT/HCPCS: 96372

== ENCOUNTER 2023-06-25 09:54 | Day surgery (SDC) | payer MEDICARE, MEDICAID, SELFPAY ==
--- NOTE | 2023-06-24 09:22 | HO.ANESPROP2 ---
Documented by User: Herlinda Peters NP 06/24/23 09:26 HPI - Anesthesia Eval Consult details Narrative: 72yo M for Upper Endoscopy and Colonoscopy Follows [facility] [place] yearly for stable CAD s/p CABG 2016. Per 01/2023 office visit: Last echocardiogram done 04/04/2019 shows EF 60-65%, grade 1 diastolic dysfunction, mild AR and mild TR. EKG 12/27/2022 shows sinus rhythm with sinus arrhythmia, no acute ST or T-wave abnormalities, rate 67. Anesthesia Pre-Procedure Meds Is the patient on any of the following meds?: GLP1/DPP4 PMFSH Active Problems Active Problems: All Active Problems GERD (gastroesophageal reflux disease) (Acute) Hydronephrosis (Acute) Flank pain (Acute) Nephrolithiasis (Acute) Abdominal pain (Acute) Early satiety (Acute) COVID-19 (Acute) DEANDRE on CPAP (Acute) Hyperthyroidism (Acute) Multinodular thyroid (Acute) Environmental allergies (Acute) Asthma (Acute) Morbid obesity (Acute) Type 2 diabetes mellitus with unspecified complications (Acute) Essential hypertension (Acute) Atherosclerotic cardiovascular disease (Acute) Hx of CABG (Acute ~07/2016) HLD (hyperlipidemia) (Acute) HTN (hypertension) (Acute) Obesity (Acute) CAD (coronary artery disease) (Acute) Diabetes mellitus (Acute) Past Medical History Medical History Hyperthyroidism Multinodular thyroid HLD (hyperlipidemia) HTN (hypertension) Obesity NSTEMI (non-ST elevated myocardial infarction) CAD (coronary artery disease) Diabetes mellitus Myocardial infarct Family History Family History Mother Cardiovascular disease Father Medical history unknown Sister Cancer Brother Cancer Surgical History Surgical History Hx of colonoscopy Hx of ultrasound guided needle biopsy Hx of CABG (~07/2016) Social History Social History Alcohol intake: current Alcohol intake frequency: does not drink Patient Tobacco Use Status: Former Tobacco user Use of substances other than those prescribed or required for medical reasons: Yes Are you DNR?: No Advance Directives: No Advance Directives Information Provided: Yes Current occupational status: unemployed Meds Allergies Allergy/AdvReac Type Severity Reaction Status Date / Time No Known Allergies Allergy Verified 04/09/23 10:50 [No Known Allergies*] Home Medications ?Medication ?Instructions ?Recorded ?Confirmed ?Last Taken ?Type cetirizine 10 mg tablet 5 mg PO DAILY PRN 02/07/20 01/29/23 Unknown History escitalopram oxalate 10 mg tablet 10 mg PO DAILY 02/07/20 01/29/23 Unknown History finasteride 5 mg tablet 5 mg PO DAILY 02/07/20 01/29/23 Unknown History metformin 1,000 mg tablet 1,000 mg PO BID 02/07/20 01/29/23 Unknown History nitroglycerin 0.4 mg sublingual 0.4 mg sublingual Q5M PRN 02/07/20 01/29/23 Unknown History tablet dulaglutide 3 mg/0.5 mL mg subcut QWEEK 10/30/21 01/29/23 06/24/21 History subcutaneous pen injector (Trulicity) insulin aspart U-100 100 unit/mL See Rx Instructions subcut 10/30/21 01/29/23 Unknown History (3 mL) subcutaneous pen (Novolog USEASDIRECTD FlexPen U-100 Insulin aspart) insulin glargine 100 unit/mL (3 80 unit subcut DAILY 10/30/21 01/29/23 06/25/23 History mL) subcutaneous pen (Lantus Solostar U-100 Insulin) insulin lispro 100 unit/mL subcut 02/23/23 Unknown History subcutaneous pen melatonin 3 mg tablet 3 mg PO BEDTIME 02/23/23 Unknown History trazodone 100 mg tablet 100 mg PO BEDTIME 02/23/23 Unknown History Exam Narrative Narrative: EKG 12/2022 Vent. Rate : 067 BPM Atrial Rate : 067 BPM P-R Int : 162 ms QRS Dur : 102 ms QT Int : 412 ms P-R-T Axes : 072 077 050 degrees QTc Int : 435 ms Normal sinus rhythm with sinus arrhythmia Nonspecific ST abnormality Abnormal ECG When compared with ECG of 28-MAY-2022 09:34, Nonspecific T wave abnormality Lateral leads Assessment and Plan Assessment Anesthesia Assessment: Chart Reviewed Documented by User: Chase Khoury MD 06/25/23 10:38 [facility] Past Medical History Medical History Hyperthyroidism Multinodular thyroid HLD (hyperlipidemia) HTN (hypertension) Obesity NSTEMI (non-ST elevated myocardial infarction) CAD (coronary artery disease) Diabetes mellitus Myocardial infarct Family History Family History Mother Cardiovascular disease Father Medical history unknown Sister Cancer Brother Cancer Family history of problems with anesthesia: No Surgical History Surgical History Hx of colonoscopy Hx of ultrasound guided needle biopsy Hx of CABG (~07/2016) History of Problems with Anesthesia: No Social History Social History Alcohol intake: current Alcohol intake frequency: does not drink Patient Tobacco Use Status: Former Tobacco user Use of substances other than those prescribed or required for medical reasons: Yes Are you DNR?: No Advance Directives: No Advance Directives Information Provided: Yes Current occupational status: unemployed Meds Allergies Allergy/AdvReac Type Severity Reaction Status Date / Time No Known Allergies Allergy Verified 04/09/23 10:50 [No Known Allergies*] Home Medications ?Medication ?Instructions ?Recorded ?Confirmed ?Last Taken ?Type cetirizine 10 mg tablet 5 mg PO DAILY PRN 02/07/20 01/29/23 Unknown History escitalopram oxalate 10 mg tablet 10 mg PO DAILY 02/07/20 01/29/23 Unknown History finasteride 5 mg tablet 5 mg PO DAILY 02/07/20 01/29/23 Unknown History metformin 1,000 mg tablet 1,000 mg PO BID 02/07/20 01/29/23 Unknown History nitroglycerin 0.4 mg sublingual 0.4 mg sublingual Q5M PRN 02/07/20 01/29/23 Unknown History tablet dulaglutide 3 mg/0.5 mL mg subcut QWEEK 09/21/22 12/21/23 05/16/22 History subcutaneous pen injector (Trulicity) insulin aspart U-100 100 unit/mL See Rx Instructions subcut 10/30/21 01/29/23 Unknown History (3 mL) subcutaneous pen (Novolog USEASDIRECTD FlexPen U-100 Insulin aspart) insulin glargine 100 unit/mL (3 80 unit subcut DAILY 10/30/21 01/29/23 06/25/23 History mL) subcutaneous pen (Lantus Solostar U-100 Insulin) insulin lispro 100 unit/mL subcut 02/23/23 Unknown History subcutaneous pen melatonin 3 mg tablet 3 mg PO BEDTIME 02/23/23 Unknown History trazodone 100 mg tablet 100 mg PO BEDTIME 02/23/23 Unknown History Exam Airway Mallampati Class: III (unfavorable jaw structure, difficult mask) TM Dist: <=3cm Neck ROM: Full Heart: ok. See above. Lungs: ok. DEANDRE Assessment and Plan Assessment Anesthesia Assessment: Anesthesia Plan Discussed Final Anesthetic Review Family History of Problems with Anesthesia: No History of Problems with Anesthesia: No NPO: Yes ASA Class: III Final Preanesthetic Review: No Changes in Pt Med Stat, Meds/Allgs Chart Reviewed, Consent Obtained/Reviewed and Anes Risks/Benef Reviewed Patient Risk: High Procedure Risk: Intermediate Anesthetic Plan Anesthetic Plan: Agree w/ Assess. and Plan and TIVA Disposition: Standard PACU
--- NOTE | 2023-06-25 09:56 | MHC.SHP ---
Pre-Procedural Eval Section A - 24 Hr Update-Section A only Date of Service: 06/25/23 Section B - Complete if H&P > 30 days Chief Complaint: Unspecified abdominal pain, Early satiety Details of Present Illness: colon screening Relevant Family History (Specify if Yes): No Relevant Social History: None Present Medications: see Short Stay Collaborative assessment Medical History: Significant History (Hyperthyroidism Multinodular thyroid HLD (hyperlipidemia) HTN (hypertension) Obesity NSTEMI (non-ST elevated myocardial infarction) CAD (coronary artery disease) Diabetes mellitus Myocardial infarct) History of Previous Operations: Relevant previous surgery/procedure and date(s) (Hx of colonoscopy Hx of ultrasound guided needle biopsy Hx of CABG (~07/2016)) Allergies: Allergies Allergy/AdvReac Type Severity Reaction Status Date / Time No Known Allergies Allergy Verified 04/09/23 10:50 [No Known Allergies*] Review of Systems Sugical H&P ROS: Negative: Constitution, Cardiovascular, Respiratory, Neurological, Psychiatric, Hem-Onc, Allergic/Immunologic, Gastrointestinal, Genitourinary, Musculoskeletal, Integumentary, Endocrine and Eyes/Ears/Nose/Throat Exam Surgical H&P Exam: Normal: HEENT, Normal: Heart, Normal: Lungs, Normal: Extremities, Normal: Abdomen, Normal: Skin and Normal: Neurological Plan Diagnosis/Plan: Unchanged I have reviewed the history and physical and performed a pertinent physical examination on my patient. No changes have occurred unless specified. Time Spent With Patient Time: Total time managing care of this patient today ____ minutes.
[2023-06-25 10:11] VITALS: BMI 34.5
[2023-06-25 10:23] VITALS: BP 189/75; PULSE 70; RESP 16; TEMP 37.4; O2SAT 98
--- NOTE | 2023-06-25 10:28 | HO.OPN-COLON ---
Colonoscopy Operative Note Operative Note Date of Service: 06/25/23 Narrative: Operative Information Procedure Description: EGD, Colonoscopy Indication: satiety, colon screening Anesthesia: MAC FLEXIBLE TRANSORAL UPPER GASTROINTESTINAL ENDOSCOPY AND COLONOSCOPY PROCEDURE NOTE UPPER ENDOSCOPY Consent: Indications for the procedure and potential complications of bleeding, perforation, reaction to medications and missed diagnosis were discussed with the patient and informed consent was obtained. Instrument: Olympus GIF H 190 J mid size upper endoscope Monitoring: Vital signs and clinical assessment, continuous EKG monitoring, Pulse oximetry, Carbon Dioxide monitoring and blood pressure monitoring were done throughout the procedure. Procedure: The patient was placed in the left lateral decubitis position and pre-procedure medications were administered and a bite block was placed. The endoscope was inserted into the mouth and advanced under direct vision to the third part of duodenum. A careful inspection was made as the upper endoscope was withdrawn including a retroflexed examination of the proximal stomach; Findings and interventions are described below. Findings: Larynx:normal Esophagus: GE junction at 40 cm, diaphragm hiatus at 40 cm, normal mucosa Stomach: Patchy granularity and erythema. Biopsies were obtained. Grade 2 flap valve on retroflexed examination of the cardia. Duodenum: Normal bulb and descending duodenum, Intervention: Biopsies as noted above, COLONOSCOPY Instrument: Olympus variable stiffness ADULT scope 190L Colonoscopy Monitoring: Vital signs and clinical assessment, continuous EKG monitoring, Pulse oximetry, Carbon Dioxide monitoring and blood pressure monitoring were done throughout the procedure. Colon withdrawal time was 12 minutes. Procedure: The patient was placed in the left lateral decubitis position and pre-procedure medications were administered. After a digital rectal examination of the ano-rectum, the video colonoscope was inserted into the rectum and advanced through the colon to the cecum/TI. The colonoscope was slowly withdrawn in a retrograde panoramic fashion and the colon mucosa was carefully examined including a retroflexed view of the rectum. Findings and interventions are described below. Procedure Difficulty:moderate Findings: Terminal Ileum-not intubated due to looping Cecum:normal Ascending Colon: x 2 sessile polyps 10 mm removed with cold snare Transverse Colon -normal Descending Colon: x 2 sessile polyps 10 mm removed with cold snare Sigmoid Colon: moderate diverticulosis Rectum: Retroflexion with small internal hemorrhoids, grade I, x 2 sessile polyps 10 mm removed with cold snare Anorectum - normal Colon preparation: [place] Bowel Preparation Scale Right colon; 2 Transverse colon: 2 Left colon; 2 (0 = Unprepared colon segment with mucosa not seen due to solid stool that cannot be cleared. 1 = Portion of mucosa of the colon segment seen, but other areas of the colon segment not well seen due to staining, residual stool and/or opaque liquid. 2 = Minor amount of residual staining, small fragments of stool and/or opaque liquid, but mucosa of colon segment seen well. 3 = Entire mucosa of colon segment seen well with no residual staining, small fragments of stool or opaque liquid) Impression and Post Procedure Diagnosis: Endoscopy Findings: gastritis Colonoscopy Findings: diverticulosis colon polyps internal hemorrhoids Plan: Await Pathology results Repeat Colonoscopy in 2-3 years due to polyp burden or earlier if clinically indicated High fiber diet leaflet avoid straining at stool, epsom salts and sitz bath, anusol supps or cream if H pylori pos treat Above findings were reviewed with the patient and relevant handouts were provided if indicated.
[2023-06-25] MEDS: Lactated Ringers 1,000 ML 100 ML IVCONT (10:31)
[2023-06-25 10:32] LABS: Glucose, Whole Blood 151 mg/dL (60-115)
[2023-06-25 11:22] VITALS: BP 149/70; PULSE 69; RESP 20; TEMP 36.2; O2SAT 95
[2023-06-25 11:37] VITALS: BP 179/77; PULSE 61; RESP 20; TEMP 36.3; O2SAT 98
== END 2023-06-25 12:17 | disposition home or self-care (01) ==
PROVIDERS: PCP Internal Medicine; Visit Provider Internal Medicine Gastroenterology
PROC: (CPT 45385; principal; 2023-06-25 11:50)
DX: Z12.11 Encounter for screening for malignant neoplasm of colon (principal); D12.2 Benign neoplasm of ascending colon; D12.4 Benign neoplasm of descending colon; K62.1 Rectal polyp; K57.30 Diverticulosis of large intestine without perforation or abscess without bleeding; K64.0 First degree hemorrhoids; K56.2 Volvulus; R68.81 Early satiety; K29.70 Gastritis, unspecified, without bleeding; E11.9 Type 2 diabetes mellitus without complications; I10 Essential (primary) hypertension; I25.10 Atherosclerotic heart disease of native coronary artery without angina pectoris; I25.2 Old myocardial infarction; Z79.4 Long term (current) use of insulin; Z79.82 Long term (current) use of aspirin; Z79.899 Other long term (current) drug therapy
CPT/HCPCS: 45385; 43239; 82947; 88305; 88313; 88342; J2704

== ENCOUNTER → 2023-06-25 09:54 | Outpatient (BNV) | payer MEDICARE, MEDICAID, SELFPAY | PROVIDERS: PCP Internal Medicine; Visit Provider Internal Medicine Gastroenterology | DX: Z12.11 Encounter for screening for malignant neoplasm of colon (principal); D12.2 Benign neoplasm of ascending colon; D12.4 Benign neoplasm of descending colon; R68.81 Early satiety; K29.70 Gastritis, unspecified, without bleeding; K57.30 Diverticulosis of large intestine without perforation or abscess without bleeding; K64.0 First degree hemorrhoids | CPT/HCPCS: 43239; 45385 ==

== ENCOUNTER 2023-09-08 10:20 | Inpatient (IN) | payer MEDICARE, MEDICAID, SELFPAY ==
--- NOTE | 2023-09-08 | ECG_ITS ---
Test Reason : TACHYCARDIA Blood Pressure : / mmHG Vent. Rate : 123 BPM Atrial Rate : 123 BPM P-R Int : 136 ms QRS Dur : 092 ms QT Int : 324 ms P-R-T Axes : 068 100 -07 degrees QTc Int : 463 ms Sinus tachycardia with Premature atrial complexes Rightward axis Abnormal QRS-T angle, consider primary T wave abnormality Abnormal ECG When compared with ECG of 27-DEC-2022 10:26, Premature atrial complexes are now Present Vent. rate has increased BY 56 BPM Nonspecific T wave abnormality now evident in Inferior leads Referred By: Ronda Peck Electronically Signed By:Fabricio Donnelly
--- NOTE | ~2023-09-08 | CT_ITS ---
EXAMINATION: CT ABDOMEN AND PELVIS WITHOUT CONTRAST CLINICAL INFORMATION: Rectal pressure, urinary incontinence, acute kidney injury COMPARISON: CT abdomen and pelvis 12/27/2022 TECHNIQUE: Multidetector volumetric imaging was performed from the superior aspect of the liver through the pubic symphysis. Sagittal and coronal reformatted images were obtained on the technologist's workstation. This CT examination was performed using dose optimization techniques as appropriate, variously including the following: *Automated exposure control *Adjustment of mA and/or kV according to patient size (this includes techniques or standardized protocols for targeted exams where dose is matched to indication/reason for exam; i.e. extremities or head) *Use of iterative reconstruction technique DLP: 689 mGy-cm FINDINGS: LUNG BASES: The visualized lung bases are unremarkable. LIVER, GALLBLADDER, AND BILIARY TREE: The liver is normal in size, shape, and attenuation. No focal hepatic lesion or biliary ductal dilatation is present. The gallbladder is unremarkable with no evidence of radiopaque gallstones, gallbladder wall thickening, or obvious pericholecystic inflammatory changes. PANCREAS: Unremarkable. SPLEEN: Unremarkable. ADRENAL GLANDS: Unremarkable. KIDNEYS AND URETERS: The kidneys are normal in size, shape, and attenuation. No hydronephrosis, hydroureter, or calculi seen. No perinephric stranding. BLADDER: Decompressed GASTROINTESTINAL TRACT: Severe colonic diverticulosis. No evidence of diverticulitis. ABDOMINAL WALL: No significant hernia is appreciated. LYMPH NODES: Normal. VASCULAR: Coarse calcific plaque in the distal abdominal aorta. PELVIC VISCERA: The prostate is markedly enlarged OSSEOUS STRUCTURES: Multilevel degenerative changes of the lumbar spine. CT/CT abdomen pelvis wo IV con IMPRESSION: Marked prostatomegaly. No hydronephrosis. Fleischner guidelines were followed.
--- NOTE | ~2023-09-08 | US_ITS ---
EXAMINATION: US SCROTUM CLINICAL INFORMATION: Testicular pain. COMPARISON: CT abdomen and pelvis 12/20/2021 TECHNIQUE: A sonogram of the scrotum was performed assessing oates-scale appearance and color Doppler flow. Spectral Doppler analysis of the arterial and venous flow were performed in the testes bilaterally. FINDINGS: RIGHT: Right testicle measures 3 x 2.1 x 2.3 cm, volume 4.4 mL. No focal testicular parenchymal lesions are visualized. Spectral Doppler analysis of the arterial and venous flow is normal in the right testis. Right epididymal head is normal in size. Small right hydrocele. Right epididymal Doppler flow is normal. LEFT: Left testicle measures 3.3 x 1.8 x 2.2 cm, volume 7 mL. No focal testicular parenchymal lesions are visualized. Spectral Doppler analysis of the arterial and venous flow is normal in the left testis. Left epididymal head is normal in size. Small left hydrocele. Left epididymal Doppler flow is normal. Left scrotal britton measuring 0.8 x 0.3 x 0.3 cm. US/US scrotum doppler IMPRESSION: No evidence of testicular torsion. Small bilateral hydroceles.
--- NOTE | ~2023-09-08 | US_ITS ---
EXAMINATION: US SCROTUM CLINICAL INFORMATION: Testicular pain. COMPARISON: CT abdomen and pelvis 12/20/2021 TECHNIQUE: A sonogram of the scrotum was performed assessing oates-scale appearance and color Doppler flow. Spectral Doppler analysis of the arterial and venous flow were performed in the testes bilaterally. FINDINGS: RIGHT: Right testicle measures 3 x 2.1 x 2.3 cm, volume 4.4 mL. No focal testicular parenchymal lesions are visualized. Spectral Doppler analysis of the arterial and venous flow is normal in the right testis. Right epididymal head is normal in size. Small right hydrocele. Right epididymal Doppler flow is normal. LEFT: Left testicle measures 3.3 x 1.8 x 2.2 cm, volume 7 mL. No focal testicular parenchymal lesions are visualized. Spectral Doppler analysis of the arterial and venous flow is normal in the left testis. Left epididymal head is normal in size. Small left hydrocele. Left epididymal Doppler flow is normal. Left scrotal britton measuring 0.8 x 0.3 x 0.3 cm. US/US scrotum IMPRESSION: No evidence of testicular torsion. Small bilateral hydroceles.
--- NOTE | ~2023-09-08 | XR_ITS ---
EXAMINATION: XR ABDOMEN KUB CLINICAL INDICATION: Constipation. COMPARISON: CT stone study March 02, 2023 TECHNIQUE: AP view of the abdomen. FINDINGS: The bowel gas pattern is normal with no evidence of ileus or obstruction. Small volume of scattered stool in the colon. No formed stool seen in the pelvis. No evidence for constipation. No unusual soft tissue calcifications are noted. The bones are unremarkable. XR/XR KUB IMPRESSION: Small volume of stool in colon. No evidence for constipation.
--- NOTE | ~2023-09-08 | XR_ITS ---
EXAMINATION: XR KNEE, RIGHT CLINICAL INFORMATION: Pain COMPARISON: None available. TECHNIQUE: Four views of the right knee. FINDINGS: No fracture, dislocation or joint effusion. Patellar spurring. Mild medial knee joint narrowing. Medial surgical clips. XR/XR knee RT 4V IMPRESSION: Degenerative type changes.
[2023-09-08 10:45] VITALS: BP 112/53; PULSE 87; RESP 17; TEMP 36.7; O2SAT 93; BMI 33.5
[2023-09-08 11:43] LABS: Appearance Urine Cloudy; Color Urine Yellow; Glucose Urine UA >=1000 mg/dL (Negative); Leukocyte Esterase Urine Trace (Negative); Nitrite Urine Negative (Negative); PH 5.5 (5.0-9.0); Specific Gravity - Urine >= 1.030 (1.005-1.025); UMIC TRIGGER UACC YES; Urine Blood Large (3+) (Negative); Urine Ketones Negative (Negative); Urine Protein 30 (1+) mg/dL (Neg-Trace)
[2023-09-08 11:55] LABS: Bacteria Urine 2+ (None Seen); Hyaline Casts Urine 0-2 /LPF (0-2); Squamous Epithelial Cell Urine 0-2 /HPF (0-2); UACC Culture Trigger YES; WBC Urine >50 /HPF (0-5)
--- NOTE | 2023-09-08 12:29 | ED.GENADULT ---
HPI - General Adult General Chief complaint: General Medical Stated complaint: Frequent urination, leg pain Time Seen by Provider: 09/08/23 12:09 Source: patient and RN notes reviewed Mode of arrival: ambulatory Limitations: no limitations History of Present Illness ED Provider: Dominga Bejarano PA-C HPI narrative: This is a 73-year-old [place] Islander-speaking male, with a history of hyperthyroidism, hypertension, and diabetes, who presents emergency department for multiple complaints. He is a poor historian and difficult to obtain duration of his symptoms. Patient states that he has had ongoing right knee pain for the last 2 weeks. He denies any recent trauma or injury. He states that he has a history of knee pain however states that over the last 2 weeks his pain has worsened. Patient states that he previously would get injections in the knee which helped previously. He also states that he has had urinary symptoms. He states that he has had urinary frequency, dysuria, as well as incontinence. He states that he has had this for ?a long time? however states that this has worsened over the last 2 weeks. He states that he still feels as though urine is left in his bladder even after urinating. He states that he has been seen by his primary care physician in the past for his symptoms however states that they ?are not doing anything?. He also states that he has had rectal pressure and pain, he has had this for ?a long time however worsened over the last 2 weeks as well He denies any fevers, chills, chest pain, shortness of breath, abdominal pain, nausea, vomiting or diarrhea. He does endorse some constipation, last bowel movement was this morning. He states that he had a ?prostate test?, however does not know the results from this. He also states that he had a colonoscopy several months ago, unsure of the results of this as well. MD complaint: Multiple complaints Onset (ago): week(s) Relieving factors: none Exacerbating factors: none Related Data Home Medications ?Medication ?Instructions ?Recorded ?Confirmed cetirizine 10 mg tablet 5 mg PO DAILY PRN 02/07/20 01/29/23 escitalopram oxalate 10 mg tablet 10 mg PO DAILY 02/07/20 01/29/23 finasteride 5 mg tablet 5 mg PO DAILY 02/07/20 01/29/23 metformin 1,000 mg tablet 1,000 mg PO BID 02/07/20 01/29/23 nitroglycerin 0.4 mg sublingual 0.4 mg sublingual Q5M PRN 02/07/20 01/29/23 tablet dulaglutide 3 mg/0.5 mL mg subcut QWEEK 10/30/21 01/29/23 subcutaneous pen injector (Trulicity) insulin aspart U-100 100 unit/mL See Rx Instructions subcut 10/30/21 01/29/23 (3 mL) subcutaneous pen (Novolog USEASDIRECTD FlexPen U-100 Insulin aspart) insulin glargine 100 unit/mL (3 80 unit subcut DAILY 10/30/21 01/29/23 mL) subcutaneous pen (Lantus Solostar U-100 Insulin) insulin lispro 100 unit/mL subcut 02/23/23 subcutaneous pen melatonin 3 mg tablet 3 mg PO BEDTIME 02/23/23 trazodone 100 mg tablet 100 mg PO BEDTIME 02/23/23 Previous Rx's ?Medication ?Instructions ?Recorded tramadol 50 mg tablet 50 mg PO Q8H PRN pain #10 tabs 01/14/20 fluticasone furoate 200 1 inh inhalation DAILY 30 days #1 08/30/21 mcg-vilanterol 25 mcg/dose ea inhalation powder (Breo Ellipta) acetaminophen 500 mg capsule 1,000 mg (2 x 500 mg) PO Q8H PRN 05/28/22 pain #30 caps cilostazol 100 mg tablet 100 mg PO BID #180 tabs 10/30/22 irbesartan 150 mg tablet 150 mg PO QAM #90 tabs 10/30/22 metoprolol tartrate 50 mg tablet 50 mg PO BID #180 tabs 10/30/22 oxycodone 5 mg tablet 5 mg PO Q8H PRN pain #9 tabs 12/27/22 bisacodyl 5 mg tablet,delayed 20 mg (4 x 5 mg) PO ONCE 02/23/23 release (Dulcolax (bisacodyl)) colonoscopy prep 1 day #4 tabs polyethylene glycol 3350 17 238 g PO ONCE PRN laxative effect 02/23/23 gram/dose oral powder (Miralax) 1 day #238 grams simethicone 125 mg chewable tablet 125 mg PO TID-QID PRN abdominal 01/15/24 (Gas Relief (simethicone)) distention #90 tabs tamsulosin 0.4 mg capsule (Flomax) 0.4 mg PO DAILY 90 days #90 caps 02/25/23 omeprazole 40 mg capsule,delayed 40 mg PO BID 30 days #60 caps 04/09/23 release ezetimibe 10 mg tablet 10 mg PO QAM #90 tabs 04/21/23 rosuvastatin 20 mg tablet 20 mg PO QAM #90 tabs 05/19/23 aspirin 81 mg tablet,delayed 81 mg PO QAM #90 tabs 05/22/23 release amlodipine 10 mg tablet 10 mg PO QAM 90 days #90 tabs 09/04/23 isosorbide mononitrate 60 mg 60 mg PO QAM #90 tabs 09/04/23 tablet,extended release 24 hr Allergies Allergy/AdvReac Type Severity Reaction Status Date / Time No Known Allergies Allergy Verified 09/08/23 10:55 [No Known Allergies*] Review of Systems Review of Systems: Yes all other systems are reviewed and are negative Constitutional: Constitutional: Reports as per HPI [facility] Past Medical History Medical History (Updated 09/08/23 @ 19:14 by JAMES Guadarrama) Hyperthyroidism Multinodular thyroid HLD (hyperlipidemia) HTN (hypertension) Obesity NSTEMI (non-ST elevated myocardial infarction) CAD (coronary artery disease) Diabetes mellitus Myocardial infarct Surgical History (Updated 07/03/23 @ 11:29 by Salima Aaron) History of esophagogastroduodenoscopy (EGD) Hx of colonoscopy Hx of ultrasound guided needle biopsy Hx of CABG (~07/2016) Family History Family History Mother Cardiovascular disease Father Medical history unknown Sister Cancer Brother Cancer Social History Social History Alcohol intake: former Patient Tobacco Use Status: Former Tobacco user Smoked in Last 30 Days: No Use of substances other than those prescribed or required for medical reasons: No Advance Directives: No Advance Directives Information Provided: Yes Current occupational status: unemployed Physical Exam ED Vital Signs: Vital Signs - 24 hr 09/08/23 10:45 09/08/23 17:36 Temperature 98.0 F 98.9 F Pulse Rate 87 100 Respiratory Rate 17 20 Blood Pressure 112/53 L 134/56 L Pulse Oximetry 93 100 Oxygen Delivery Method Room Air Room Air BMI result Body Mass Index 33.5 Const General: cooperative, comfortable and no acute distress Orientation/consciousness: patient oriented x3 Limitations: no limitations HENMT Head: Yes normal to inspection, Yes normocephalic and Yes atraumatic Ears: hearing grossly normal bilaterally General nose exam: Normal external nose present Face and sinus: Yes normal facial exam Mouth: Normal oral and palatal mucosa present, oropharynx normal and moist mucous membranes Throat: Yes posterior oropharynx normal Eyes General: appearance normal, both eyes and all related structures Eyelids: Yes eyelids normal Conjunctivae: conjunctivae normal Sclerae: sclerae normal Pupils: Equal, round and reactive pupils present EOM: EOMs intact bilaterally Neck Neck: Yes normal visual inspection, Yes full ROM and Yes no lymphadenopathy Lymphatic: no lymphadenopathy noted Chest Chest palpation & inspection: normal inspection of the chest Resp Effort & Inspection: normal respiratory effort and able to speak in complete sentences Auscultation: clear to auscultation bilaterally, no crackles, no rales, no rhonchi and no wheezes Cardio Rate: regular rate Rhythm: regular rhythm Heart sounds: S1 normal heart sound present and S2 normal heart sound present GI Other: Abdomen is soft, nontender, with large ventral hernia noted with sitting upwards, does not appear to be strangulated, nontender. No overlying erythema or warmth. Inspection: Yes normal to inspection Other: Testicular examination without any testicular erythema, edema, fluctuance. Patient reports diffuse tenderness throughout scrotum however no palpable masses or deformities. examination was performed with nurseMeghana RN present throughout the duration of the examination. Rectal examination also performed, good rectal tone, no bloody or black stool. Prostate feels enlarged however does not feel boggy, no palpable deformities, no exquisite tenderness. Skin General skin exam: no rashes or lesions noted Trauma: no lacerations or abrasions Wounds: no wounds Neuro General: patient oriented x3 and moves all extremities Cranial nerves: Yes Equal, round and reactive pupils present Extrem Other: Right knee, no obvious bony deformity or swelling, no erythema or warmth, full range of motion, diffuse tenderness throughout joint. General: Yes normal to inspection Right upper extremity: normal to inspection Left upper extremity: normal to inspection Right lower extremity: normal to inspection Left lower extremity: normal to inspection Course Reevaluation(s) Reevaluation #1: Patient with leukocytosis at 17.8, differential still pending. Patient is blood glucose 501, he states that he did not take his insulin today. Creatinine is elevated at 1.9 with a BUN 20. Urine does appear to be infected. Given WILLIAM, with leukocytosis, he would benefit from hospitalization however will await scrotal ultrasound as well as CT scan. Patient has been medicated with IV fluids, and lispro 15 units. Scrotal ultrasound revealing hydroceles, no evidence of testicular torsion, KUB revealing small volume of stool in colon, no evidence of constipation. Time: 14:28 Reevaluation #2: Patient remains to be comfortable, awaiting lactic to be drawn at this time, differential returns, he does have 9% bands, ESR elevated at 62 CRP elevated at 46. Beta hydroxybutyrate 0.6. VBG revealing slight elevation in HCO3, he is not in DKA at this time. Hypo natremia at 1:32 a.m.. He is currently receiving IV fluids. He does have a slightly elevated alk phos at 125, he is afebrile, pending CT scan at this time. KUB returns, no obstructive process noted. Blood cultures were obtained, patient medicated with ceftriaxone IV as this likely appears to be a urinary tract infection however we are awaiting CT scan at this time. Time: 18:22 Reevaluation #3: CT scan returns showing prostatomegaly, no other acute abnormalities. I reviewed the CT scan myself however I do know a large cyst on his right kidney, which was not discussed in the radiologic report, call [facility], and spoke to radiologist who reviewed record, he states that the cyst is unchanged. At this point, patient's symptoms likely attributed to urinary tract infection, and WILLIAM. Given hyperglycemia, he has been given IV fluids, and insulin, repeat point of care > 314 At this time, patient meets criteria for admission for further management of his symptoms. Discussed with Dr. Peck, transfer of care initiated. Time: 19:12 Medications Administered Discontinued Medications Generic Name Dose Route Start Last Admin Trade Name Freq PRN Reason Stop Dose Admin Sodium Chloride 1,000 mls @ 999 mls/hr 09/08/23 14:11 09/08/23 16:19 Ns IV 09/08/23 15:11 Infused .Q1H1M ONE Infusion Ceftriaxone Sodium 1 gm/ 50 mls @ 100 mls/hr 09/08/23 17:52 09/08/23 18:20 Sodium Chloride IV 09/08/23 18:21 100 mls/hr ONCE ONE Administration Insulin Human Lispro 15 unit 09/08/23 14:57 09/08/23 15:19 Insulin Lispro 100 Unit/Ml 3 Ml Vial SUBCUT 09/08/23 14:58 15 unit ONCE ONE Administration Medical Decision Making Medical Decision Making [facility] Narrative: This is a 73-year-old male who presents emergency department with multiple complaints. He is reporting urinary incontinence, urinary frequency which has been ongoing for many months, worsening over the last 2 weeks. He does endorse some pain with urination. He also reports chronic right knee pain. He also reports rectal pressure which has been persistent for the last several months, worsening over the last several weeks. On arrival, vital signs within normal limits. He is nontoxic appearing, appears to be in no acute distress. Abdomen is soft and nontender. Differential diagnoses include UTI, prostatitis, testicular torsion-unlikely, hydrocele. Plan: Labs, KUB Differential Diagnosis Differential Diagnoses: The differential diagnosis associated with the presentation includes See above Admission/Observation Consideration of admission/observation: Escalation of care including admission/observation considered Lab Data [facility] Lab Attestation statement: I reviewed the patient's lab results. Leukocytosis noted at 17.8, with left shift, with 9% band neutrophils, ESR elevated at 62, ABG with HCO3 28, hyponatremic at 132., creatinine elevated at 1.9 > baseline around 1.1, random glucose 501, given IV fluids and insulin, improved to 314, slight elevation liver transaminases at 60, alk phos elevated at 125; elevated CRP at 46, beta hydroxybutyrate slightly elevated at 0.6; he is not in DKA, urine appears to be grossly infected with large blood, trace leuk esterases and greater than 50 wbc's, negative chlamydia and gonorrhea 09/08/23 13:36 09/08/23 13:36 Labs: Lab Results 09/08/23 09/08/23 09/08/23 Range/Units 11:37 13:36 14:43 WBC 17.8 H (4.8-10.8) X10*3/uL RBC 5.01 (4.60-5.80) X10*6/uL Hgb 14.5 (14.0-18.0) g/dl Hct 41.2 L (42.0-52.0) % MCV 82.2 (80.0-98.0) fL MCH 28.9 (27.0-33.0) pg MCHC 35.2 (31.0-36.0) g/dl RDW 15.4 (11.0-16.0) % Plt Count 138 L D (160-400) X10*3/uL MPV 9.9 (9.4-12.4) fL Immature Gran % (Auto) Cancelled Neut % (Auto) Cancelled Lymph % (Auto) Cancelled [place] % (Auto) Cancelled Eos % (Auto) Cancelled Baso % (Auto) Cancelled Lymph # (Auto) Cancelled [place] # (Auto) Cancelled Eos # (Auto) Cancelled Baso # (Auto) Cancelled Abs Immat Gran (auto) Cancelled Absolute Neuts (auto) Cancelled Absolute Nucleated RBC 0.000 (0.0-0.012) X10*3/uL Nucleated RBC % (auto) 0.0 (0.0-0.2) /100WBC Neutrophils % (Manual) 84 H (45-73) % Band Neutrophils % 9 H (3-5) % Lymphocytes % (Manual) 4 L (20-40) % Atypical Lymphs % (Man) 1 (0-6) % Monocytes % (Manual) 1 L (2-11) % Metamyelocytes % 1 % Abs Neuts (Manual) 16.6 H (2.0-8.3) X10*3/uL Lymphocytes # (Manual) 0.7 L (1.2-4.9) X10*3/uL Atyp Lymphs # (Manual) 0.2 x10*3/uL Monocytes # (Manual) 0.2 (0.1-1.2) X10*3/uL Metamyelocytes # 0.2 X10*3/uL Toxic Vacuolation PRESENT Dohle Bodies PRESENT Platelet Estimate SLIGHTLY DECREASED (NORMAL) Plt Morphology Comment NORMAL RBC Morphology NORMAL ESR 62 H (0-15) MM/HR VBG pH 7.37 (7.32-7.43) VBG pCO2 48 mmHg VBG pO2 28 mmHg VBG HCO3 28 H (22-26) mmol/L VBG O2 Saturation 39.0 % VBG Base Excess 2.4 mmol/L Sodium 132 L (135-145) mmol/L Potassium 3.8 (3.3-5.1) mmol/L Chloride 96 (96-108) mmol/L Carbon Dioxide 26 (22-29) mmol/L Anion Gap 14 (12-20) BUN 20 H (9-16) mg/dL Creatinine 1.93 H (0.5-1.4) mg/dL Estim Creat Clear Calc 35.5 Estimated GFR 34 POC Glucose (60-115) mg/dL Random Glucose 501 H* (60-115) mg/dL Lactic Acid (0.5-2.0) mmol/L Calcium 9.5 (8.4-10.2) mg/dL Magnesium 1.8 (1.6-2.6) mg/dL Total Bilirubin 0.7 (0.0-1.0) mg/dL Direct Bilirubin 0.3 (0.0-0.5) mg/dL AST 60 H (5-37) U/L ALT 30 (0-40) U/L Alkaline Phosphatase 125 H (39-117) U/L C-Reactive Protein 46.46 H (< or = 0.50) mg/dL Total Protein 7.6 (6.5-8.0) g/dL Albumin 3.6 (3.5-5.0) g/dL Lipase 13 (8-78) U/L Beta-Hydroxybutyrate 0.61 H (0.02-0.27) mmol/L Urine Color Yellow Urine Appearance Cloudy Urine pH 5.5 (5.0-9.0) Ur Specific [place] >= 1.030 H (1.005-1.025) Urine Protein 30 (1+) H (Neg-Trace) mg/dL Urine Glucose (UA) >=1000 H (Negative) mg/dL Urine Ketones Negative (Negative) mg/dL Urine Blood Large (3+) H (Negative) Urine Nitrite Negative (Negative) Ur Leukocyte Esterase Trace H (Negative) Urine RBC 3-5 H (0-2) /HPF Urine WBC >50 H (0-5) /HPF Ur Squamous Epith Cells 0-2 (0-2) /HPF Urine Bacteria 2+ (None Seen) Hyaline Casts 0-2 (0-2) /LPF Chlam trachomat DNA PCR (Not Detect.) N.gonorrhoeae DNA (PCR) (Not Detect.) 09/08/23 09/08/23 09/08/23 Range/Units 15:20 16:18 17:23 WBC (4.8-10.8) X10*3/uL RBC (4.60-5.80) X10*6/uL Hgb (14.0-18.0) g/dl Hct (42.0-52.0) % MCV (80.0-98.0) fL MCH (27.0-33.0) pg MCHC (31.0-36.0) g/dl RDW (11.0-16.0) % Plt Count (160-400) X10*3/uL MPV (9.4-12.4) fL Immature Gran % (Auto) Neut % (Auto) Lymph % (Auto) [place] % (Auto) Eos % (Auto) Baso % (Auto) Lymph # (Auto) [place] # (Auto) Eos # (Auto) Baso # (Auto) Abs Immat Gran (auto) Absolute Neuts (auto) Absolute Nucleated RBC (0.0-0.012) X10*3/uL Nucleated RBC % (auto) (0.0-0.2) /100WBC Neutrophils % (Manual) (45-73) % Band Neutrophils % (3-5) % Lymphocytes % (Manual) (20-40) % Atypical Lymphs % (Man) (0-6) % Monocytes % (Manual) (2-11) % Metamyelocytes % % Abs Neuts (Manual) (2.0-8.3) X10*3/uL Lymphocytes # (Manual) (1.2-4.9) X10*3/uL Atyp Lymphs # (Manual) x10*3/uL Monocytes # (Manual) (0.1-1.2) X10*3/uL Metamyelocytes # X10*3/uL Toxic Vacuolation Dohle Bodies Platelet Estimate (NORMAL) Plt Morphology Comment RBC Morphology ESR (0-15) MM/HR VBG pH (7.32-7.43) VBG pCO2 mmHg VBG pO2 mmHg VBG HCO3 (22-26) mmol/L VBG O2 Saturation % VBG Base Excess mmol/L Sodium (135-145) mmol/L Potassium (3.3-5.1) mmol/L Chloride (96-108) mmol/L Carbon Dioxide (22-29) mmol/L Anion Gap (12-20) BUN (9-16) mg/dL Creatinine (0.5-1.4) mg/dL Estim Creat Clear Calc Estimated GFR POC Glucose 411 H* 351 H* (60-115) mg/dL Random Glucose (60-115) mg/dL Lactic Acid (0.5-2.0) mmol/L Calcium (8.4-10.2) mg/dL Magnesium (1.6-2.6) mg/dL Total Bilirubin (0.0-1.0) mg/dL Direct Bilirubin (0.0-0.5) mg/dL AST (5-37) U/L ALT (0-40) U/L Alkaline Phosphatase (39-117) U/L C-Reactive Protein (< or = 0.50) mg/dL Total Protein (6.5-8.0) g/dL Albumin (3.5-5.0) g/dL Lipase (8-78) U/L Beta-Hydroxybutyrate (0.02-0.27) mmol/L Urine Color Urine Appearance Urine pH (5.0-9.0) Ur Specific [place] (1.005-1.025) Urine Protein (Neg-Trace) mg/dL Urine Glucose (UA) (Negative) mg/dL Urine Ketones (Negative) mg/dL Urine Blood (Negative) Urine Nitrite (Negative) Ur Leukocyte Esterase (Negative) Urine RBC (0-2) /HPF Urine WBC (0-5) /HPF Ur Squamous Epith Cells (0-2) /HPF Urine Bacteria (None Seen) Hyaline Casts (0-2) /LPF Chlam trachomat DNA PCR NOT DETECTED (Not Detect.) N.gonorrhoeae DNA (PCR) NOT DETECTED (Not Detect.) 09/08/23 Range/Units 18:22 WBC (4.8-10.8) X10*3/uL RBC (4.60-5.80) X10*6/uL Hgb (14.0-18.0) g/dl Hct (42.0-52.0) % MCV (80.0-98.0) fL MCH (27.0-33.0) pg MCHC (31.0-36.0) g/dl RDW (11.0-16.0) % Plt Count (160-400) X10*3/uL MPV (9.4-12.4) fL Immature Gran % (Auto) Neut % (Auto) Lymph % (Auto) [place] % (Auto) Eos % (Auto) Baso % (Auto) Lymph # (Auto) [place] # (Auto) Eos # (Auto) Baso # (Auto) Abs Immat Gran (auto) Absolute Neuts (auto) Absolute Nucleated RBC (0.0-0.012) X10*3/uL Nucleated RBC % (auto) (0.0-0.2) /100WBC Neutrophils % (Manual) (45-73) % Band Neutrophils % (3-5) % Lymphocytes % (Manual) (20-40) % Atypical Lymphs % (Man) (0-6) % Monocytes % (Manual) (2-11) % Metamyelocytes % % Abs Neuts (Manual) (2.0-8.3) X10*3/uL Lymphocytes # (Manual) (1.2-4.9) X10*3/uL Atyp Lymphs # (Manual) x10*3/uL Monocytes # (Manual) (0.1-1.2) X10*3/uL Metamyelocytes # X10*3/uL Toxic Vacuolation Dohle Bodies Platelet Estimate (NORMAL) Plt Morphology Comment RBC Morphology ESR (0-15) MM/HR VBG pH (7.32-7.43) VBG pCO2 mmHg VBG pO2 mmHg VBG HCO3 (22-26) mmol/L VBG O2 Saturation % VBG Base Excess mmol/L Sodium (135-145) mmol/L Potassium (3.3-5.1) mmol/L Chloride (96-108) mmol/L Carbon Dioxide (22-29) mmol/L Anion Gap (12-20) BUN (9-16) mg/dL Creatinine (0.5-1.4) mg/dL Estim Creat Clear Calc Estimated GFR POC Glucose (60-115) mg/dL Random Glucose (60-115) mg/dL Lactic Acid 1.8 (0.5-2.0) mmol/L Calcium (8.4-10.2) mg/dL Magnesium (1.6-2.6) mg/dL Total Bilirubin (0.0-1.0) mg/dL Direct Bilirubin (0.0-0.5) mg/dL AST (5-37) U/L ALT (0-40) U/L Alkaline Phosphatase (39-117) U/L C-Reactive Protein (< or = 0.50) mg/dL Total Protein (6.5-8.0) g/dL Albumin (3.5-5.0) g/dL Lipase (8-78) U/L Beta-Hydroxybutyrate (0.02-0.27) mmol/L Urine Color Urine Appearance Urine pH (5.0-9.0) Ur Specific [place] (1.005-1.025) Urine Protein (Neg-Trace) mg/dL Urine Glucose (UA) (Negative) mg/dL Urine Ketones (Negative) mg/dL Urine Blood (Negative) Urine Nitrite (Negative) Ur Leukocyte Esterase (Negative) Urine RBC (0-2) /HPF Urine WBC (0-5) /HPF Ur Squamous Epith Cells (0-2) /HPF Urine Bacteria (None Seen) Hyaline Casts (0-2) /LPF Chlam trachomat DNA PCR (Not Detect.) N.gonorrhoeae DNA (PCR) (Not Detect.) Independent Interpretation Interpretation: See course comment as I reviewed the images, he has a large midpole cyst, seen on the right, discussed with radiologist who states that these are stable. Radiology Impression Discussion of test interpretation with radiology: I have reviewed the radiologist's reading. Radiologist Impression: CT/CT abdomen pelvis wo IV con IMPRESSION: Marked prostatomegaly. No hydronephrosis. Fleischner guidelines were followed. Dictated By: Ori Hoover MD Scrotal ultrasound revealing no evidence of testicular torsion, small bilateral hydroceles. XR/XR KUB IMPRESSION: Small volume of stool in colon. No evidence for constipation. Dictated By: Prem Gross MD XR/XR knee RT 4V IMPRESSION: Degenerative type changes. Dictated By: Chelsey Crowder MD Independent Historian Clinical information obtained from an independent historian. History obtained from or confirmed by: Spouse Chronic Conditions Patient?s care impacted by: Diabetes Critical Care Time Critical Care Time Critical Care Time: Yes Total Critical Care Time: 35 Attestation: I have personally provided critical care time exclusive of time spent on separately billable procedures. Time includes review of lab data, radiology results, discussion with consultants, and monitoring for potential decompensation. Intervention performed as documented. Discharge Plan Discharge Clinical Impression: Acute UTI, WILLIAM (acute kidney injury) Patient Disposition: Admitted As Inpatient Print Language: [place]
[2023-09-08 13:43] LABS: Hematocrit 41.2 % (42.0-52.0); Hemoglobin 14.5 g/dl (14.0-18.0); Mean Corpuscular HGB Conc 35.2 g/dl (31.0-36.0); Mean Corpuscular Hemoglobin 28.9 pg (27.0-33.0); Mean Corpuscular Volume 82.2 fL (80.0-98.0); Red Blood Count 5.01 X10*6/uL (4.60-5.80); Red Cell Distribution Width 15.4 % (11.0-16.0); White Blood Count 17.8 X10*3/uL (4.8-10.8)
[2023-09-08 14:07] LABS: Alanine Aminotransferase 30 U/L (0-40); Albumin Level 3.6 g/dL (3.5-5.0); Alkaline Phosphatase 125 U/L (39-117); Anion Gap 14 (12-20); Aspartate Amino Transferase 60 U/L (5-37); Bilirubin Direct 0.3 mg/dL (0.0-0.5); Bilirubin Total 0.7 mg/dL (0.0-1.0); Blood Urea Nitrogen 20 mg/dL (9-16); C Reactive Protein 46.46 mg/dL (< or = 0.50); Calcium 9.5 mg/dL (8.4-10.2); Carbon Dioxide 26 mmol/L (22-29); Chloride 96 mmol/L (96-108); Creatinine Clr Calc Pharmacy 35.5; Estimated Glomerular Filt Rate 34; Glucose Random 501 mg/dL (60-115); Lipase 13 U/L (8-78); Magnesium 1.8 mg/dL (1.6-2.6); Potassium 3.8 mmol/L (3.3-5.1); Sodium 132 mmol/L (135-145); Total Protein 7.6 g/dL (6.5-8.0)
[2023-09-08 14:27] LABS: Erythrocyte Sedimentation Rate 62 MM/HR (0-15)
[2023-09-08 14:31] LABS: Atypical Lymph Absolute Manual 0.2 x10*3/uL; Atypical Lymphs Percent Manual 1 % (0-6); Band Neutrophils Percent 9 % (3-5); Lymphocytes Absolute Manual 0.7 X10*3/uL (1.2-4.9); Lymphocytes Percent Manual 4 % (20-40); Metamyelocytes Absolute 0.2 X10*3/uL; Metamyelocytes Percent 1 %; Monocytes Absolute Manual 0.2 X10*3/uL (0.1-1.2); Monocytes Percent Manual 1 % (2-11); Neutrophils Absolute Manual 16.6 X10*3/uL (2.0-8.3); Neutrophils Percent Manual 84 % (45-73)
[2023-09-08 14:33] LABS: Dohle Bodies PRESENT; Platelet Estimate SLIGHTLY DECREASED (NORMAL); Platelet Morphology Comment NORMAL; RBC Morphology NORMAL; Toxic Vacuolation PRESENT
[2023-09-08 14:34] LABS: Mean Platelet Volume 9.9 fL (9.4-12.4); Platelet Count 138 X10*3/uL (160-400)
[2023-09-08] MEDS: 0.9 % Sodium Chloride 1,000 ML 999 ML IV (14:47)
[2023-09-08 14:50] LABS: VBG Base Excess 2.4 mmol/L; VBG HCO3 28 mmol/L (22-26); VBG pCO2 48 mmHg; VBG pH 7.37 (7.32-7.43); VBG pO2 28 mmHg; Venous Blood Gas Refer to POC result
[2023-09-08 15:05] LABS: Beta-Hydroxybutyrate 0.61 mmol/L (0.02-0.27)
[2023-09-08] MEDS: Insulin Lispro 100 UNIT/ML 3 ML VIAL 15 UNIT SUBCUT (15:19)
[2023-09-08 16:21] LABS: Glucose, Whole Blood 411 mg/dL (60-115)
[2023-09-08 17:03] LABS: CT PCR NOT DETECTED (Not Detect.); NG PCR NOT DETECTED (Not Detect.)
[2023-09-08 17:27] LABS: Glucose, Whole Blood 351 mg/dL (60-115)
[2023-09-08 17:36] VITALS: BP 134/56; PULSE 100; RESP 20; TEMP 37.2; O2SAT 100
[2023-09-08] MEDS: cefTRIAXone sodium 1 GM in 0.9 % Sodium Chloride 50 ML IV (18:20)
[2023-09-08 18:39] LABS: Lactic Acid 1.8 mmol/L (0.5-2.0)
--- NOTE | 2023-09-08 19:27 | PC.NURSE ---
pt and family member notified of CT scan results by provider at this time. aware of plan of care in regards to being admitted. pt incontinent of urine/stool. changed over into fresh hospital attire. clean linen/pads applied. repeat POC post IVF = 314mg/dL. provider notified/aware. IV access slightly dislodged - access redressed. IV remains patent/intact. no sob/wob noted. respirations even/unlabored. plan of care ongoing. call pro placed within reach.
[2023-09-08 19:30] LABS: Glucose, Whole Blood 314 mg/dL (60-115)
[2023-09-08] MEDS: Insulin Regular, Human 100 UNIT/ML 10 ML VIAL IVPUSH (20:48)
[2023-09-08] MEDS: Lactated Ringers 1,000 ML 999 ML IV (20:49)
--- NOTE | 2023-09-08 21:04 | PM.IMHP ---
History of Present Illness Date of Service: 09/08/23 Chief Complaint: Dysuria This is a 73-year-old male with pertinent history of CAD status post CABG, insulin-dependent diabetes mellitus, hypertension, mood disorder, BPH, DEANDRE on CPAP, gastroesophageal reflux disease who presents to the emergency department for evaluation of feeling unwell and dysuria. Patient states his symptoms have been ongoing for a while for about 1-2 months. He has been having urinary incontinence with dysuria and change in odor and color of urine. Also has urinary hesitancy. Patient states he is also having loose stools for the last couple of months. Admits fevers and chills. Patient also reports he has been having right knee pain which is worse with ambulation. He does have right knee osteoarthritis. Patient states he is noncompliant with his medications and has missed few doses of his insulin. Admits poor p.o. intake, generalized fatigability, weakness. No shortness a breath, chest pain, palpitations. Patient is Cameroonian speaking and history obtained with the help of official court interpreter In the emergency department, patient was found to have leukocytosis with WILLIAM. Also blood glucose found to be in the 500s Review of Systems Constitutional: Constitutional: Reports fatigue, Reports lethargy, Reports malaise, Reports poor appetite and Reports weakness Cardiovascular: Cardiovascular: Reports no additional cardiovascular complaints Respiratory: Respiratory: Reports no additional respiratory complaints Gastrointestinal: Gastrointestinal: Reports abdominal pain and Reports loose stools Genitourinary: Genitourinary: Reports dysuria, Reports urinary frequency, Reports urinary hesitancy, Reports urinary incontinence and Reports urinary urgency Neurologic: Reports weakness Endocrine: Endocrine: Reports fatigue [facility] Medical History Hyperthyroidism Multinodular thyroid HLD (hyperlipidemia) HTN (hypertension) Obesity NSTEMI (non-ST elevated myocardial infarction) CAD (coronary artery disease) Diabetes mellitus Myocardial infarct Family History Mother Cardiovascular disease Father Medical history unknown Sister Cancer Brother Cancer Surgical History History of esophagogastroduodenoscopy (EGD) Hx of colonoscopy Hx of ultrasound guided needle biopsy Hx of CABG (~07/2016) Social History Alcohol intake: former Patient Tobacco Use Status: Former Tobacco user Smoked in Last 30 Days: No Use of substances other than those prescribed or required for medical reasons: No Advance Directives: No Advance Directives Information Provided: Yes Current occupational status: unemployed Meds Allergies Allergy/AdvReac Type Severity Reaction Status Date / Time No Known Allergies Allergy Verified 09/08/23 10:55 [No Known Allergies*] Active Medications: Current Medications Acetaminophen (Acetaminophen 325 Mg Tablet) 650 mg PO Q6H PRN PRN Reason: Pain, Mild (Pain Scale 1-3), fever or headache Calcium Carbonate (Calcium Carbonate 750 Mg Tab.Chew) 750 mg PO Q4H PRN PRN Reason: Heartburn Enoxaparin Sodium (Enoxaparin Sodium 30 Mg/0.3 Ml Syringe) 30 mg SUBCUT Q24H EMELY Glucose (Glucose Gel 15 Gm Gel..Gram.) 15 gm PO Q15M PRN; Protocol PRN Reason: per Hypoglycemia Standing Ord. Lactated Ringer's (Lr) 1,000 mls @ 999 mls/hr IV .Q1H1M EMELY Stop: 09/08/23 21:45 Last Admin: 09/08/23 20:49 Dose: 999 mls/hr Dextrose (D10) 250 mls @ 750 mls/hr IV Q15M PRN; Protocol PRN Reason: per Hypoglycemia Standing Ord. Insulin Human Lispro (Insulin Lispro 100 Unit/Ml 3 Ml Vial) 0 unit SUBCUT QIDACHS [facility]; Protocol Magnesium Hydroxide (Milk Of Magnesia 30 Ml Oral.Susp) 30 ml PO DAILY PRN PRN Reason: Constipation Melatonin (Melatonin 3 Mg Tablet) 6 mg PO BEDTIME PRN PRN Reason: Insomnia Ondansetron HCl (Ondansetron Hcl 4 Mg/2 Ml Vial) 4 mg IVPUSH Q8H PRN PRN Reason: Nausea and Vomiting Sodium Chloride (0.9 % Sodium Chloride Flush 3 Ml Syringe) [address] [facility] Home Medications ?Medication ?Instructions ?Recorded ?Confirmed ?Last Taken ?Type cetirizine 10 mg tablet 5 mg PO DAILY PRN 02/07/20 01/29/23 Unknown History escitalopram oxalate 10 mg tablet 10 mg PO DAILY 02/07/20 01/29/23 Unknown History finasteride 5 mg tablet 5 mg PO DAILY 02/07/20 01/29/23 Unknown History metformin 1,000 mg tablet 1,000 mg PO BID 02/07/20 01/29/23 Unknown History nitroglycerin 0.4 mg sublingual 0.4 mg sublingual Q5M PRN 02/07/20 01/29/23 Unknown History tablet dulaglutide 3 mg/0.5 mL mg subcut QWEEK 10/30/21 01/29/23 06/24/21 History subcutaneous pen injector (Trulicity) insulin aspart U-100 100 unit/mL See Rx Instructions subcut 10/30/21 01/29/23 Unknown History (3 mL) subcutaneous pen (Novolog USEASDIRECTD FlexPen U-100 Insulin aspart) insulin glargine 100 unit/mL (3 80 unit subcut DAILY 10/30/21 01/29/23 06/25/23 History mL) subcutaneous pen (Lantus Solostar U-100 Insulin) insulin lispro 100 unit/mL subcut 02/23/23 Unknown History subcutaneous pen melatonin 3 mg tablet 3 mg PO BEDTIME 02/23/23 Unknown History trazodone 100 mg tablet 100 mg PO BEDTIME 02/23/23 Unknown History Physical Exam Vital Signs and Narrative: Vital Signs: Last Vital Signs Temp 98.9 F 09/08/23 17:36 Pulse 100 09/08/23 17:36 Resp 20 09/08/23 17:36 BP 134/56 L 09/08/23 17:36 Pulse Ox 100 09/08/23 17:36 O2 Del Method Room Air 09/08/23 17:36 BMI result Body Mass Index 33.5 Middle-aged male lying in bed in no distress Neck supple, no JVD Regular rate and rhythm, S1-S2 heard Regular breath sounds bilaterally, no wheezing or crackles appreciated Abdomen soft nontender, no guarding, no rigidity Patient is awake, alert and oriented to self, place, time and person ; no focal motor deficit Psych: Normal mood No pedal edema ; right knee with tenderness, no erythema Results Labs 09/08/23 13:36 09/08/23 13:36 Labs: Laboratory Results - last 24 hr 09/08/23 09/08/23 09/08/23 11:37 13:36 14:43 MCV 82.2 MCH 28.9 MCHC 35.2 RDW 15.4 Plt Count 138 L D MPV 9.9 Immature Gran % (Auto) Cancelled Neut % (Auto) Cancelled Lymph % (Auto) Cancelled Schuyler % (Auto) Cancelled Eos % (Auto) Cancelled Baso % (Auto) Cancelled Lymph # (Auto) Cancelled Schuyler # (Auto) Cancelled Eos # (Auto) Cancelled Baso # (Auto) Cancelled Abs Immat Gran (auto) Cancelled Absolute Neuts (auto) Cancelled Absolute Nucleated RBC 0.000 Nucleated RBC % (auto) 0.0 Neutrophils % (Manual) 84 H Band Neutrophils % 9 H Lymphocytes % (Manual) 4 L Atypical Lymphs % (Man) 1 Monocytes % (Manual) 1 L Metamyelocytes % 1 Abs Neuts (Manual) 16.6 H Lymphocytes # (Manual) 0.7 L Atyp Lymphs # (Manual) 0.2 Monocytes # (Manual) 0.2 Metamyelocytes # 0.2 Toxic Vacuolation PRESENT Dohle Bodies PRESENT Platelet Estimate SLIGHTLY DECREASED Plt Morphology Comment NORMAL RBC Morphology NORMAL ESR 62 H VBG pH 7.37 VBG pCO2 48 VBG pO2 28 VBG HCO3 28 H VBG O2 Saturation 39.0 VBG Base Excess 2.4 Anion Gap 14 Estim Creat Clear Calc 35.5 Estimated GFR 34 POC Glucose Random Glucose 501 H* Lactic Acid Calcium 9.5 Magnesium 1.8 Total Bilirubin 0.7 Direct Bilirubin 0.3 AST 60 H ALT 30 Alkaline Phosphatase 125 H C-Reactive Protein 46.46 H Total Protein 7.6 Albumin 3.6 Lipase 13 Beta-Hydroxybutyrate 0.61 H Urine Color Yellow Urine Appearance Cloudy Urine pH 5.5 Ur Specific [place] >= 1.030 H Urine Protein 30 (1+) H Urine Glucose (UA) >=1000 H Urine Ketones Negative Urine Blood Large (3+) H Urine Nitrite Negative Ur Leukocyte Esterase Trace H Urine RBC 3-5 H Urine WBC >50 H Ur Squamous Epith Cells 0-2 Urine Bacteria 2+ Hyaline Casts 0-2 Chlam trachomat DNA PCR N.gonorrhoeae DNA (PCR) 09/08/23 09/08/23 09/08/23 15:20 16:18 17:23 MCV MCH MCHC RDW Plt Count MPV Immature Gran % (Auto) Neut % (Auto) Lymph % (Auto) [place] % (Auto) Eos % (Auto) Baso % (Auto) Lymph # (Auto) Schuyler # (Auto) Eos # (Auto) Baso # (Auto) Abs Immat Gran (auto) Absolute Neuts (auto) Absolute Nucleated RBC Nucleated RBC % (auto) Neutrophils % (Manual) Band Neutrophils % Lymphocytes % (Manual) Atypical Lymphs % (Man) Monocytes % (Manual) Metamyelocytes % Abs Neuts (Manual) Lymphocytes # (Manual) Atyp Lymphs # (Manual) Monocytes # (Manual) Metamyelocytes # Toxic Vacuolation Dohle Bodies Platelet Estimate Plt Morphology Comment RBC Morphology ESR VBG pH VBG pCO2 VBG pO2 VBG HCO3 VBG O2 Saturation VBG Base Excess Anion Gap Estim Creat Clear Calc Estimated GFR POC Glucose 411 H* 351 H* Random Glucose Lactic Acid Calcium Magnesium Total Bilirubin Direct Bilirubin AST ALT Alkaline Phosphatase C-Reactive Protein Total Protein Albumin Lipase Beta-Hydroxybutyrate Urine Color Urine Appearance Urine pH Ur Specific [place] Urine Protein Urine Glucose (UA) Urine Ketones Urine Blood Urine Nitrite Ur Leukocyte Esterase Urine RBC Urine WBC Ur Squamous Epith Cells Urine Bacteria Hyaline Casts Chlam trachomat DNA PCR NOT DETECTED N.gonorrhoeae DNA (PCR) NOT DETECTED 09/08/23 09/08/23 18:22 19:25 MCV MCH MCHC RDW Plt Count MPV Immature Gran % (Auto) Neut % (Auto) Lymph % (Auto) [place] % (Auto) Eos % (Auto) Baso % (Auto) Lymph # (Auto) [place]uyler # (Auto) Eos # (Auto) Baso # (Auto) Abs Immat Gran (auto) Absolute Neuts (auto) Absolute Nucleated RBC Nucleated RBC % (auto) Neutrophils % (Manual) Band Neutrophils % Lymphocytes % (Manual) Atypical Lymphs % (Man) Monocytes % (Manual) Metamyelocytes % Abs Neuts (Manual) Lymphocytes # (Manual) Atyp Lymphs # (Manual) Monocytes # (Manual) Metamyelocytes # Toxic Vacuolation Dohle Bodies Platelet Estimate Plt Morphology Comment RBC Morphology ESR VBG pH VBG pCO2 VBG pO2 VBG HCO3 VBG O2 Saturation VBG Base Excess Anion Gap Estim Creat Clear Calc Estimated GFR POC Glucose 314 H Random Glucose Lactic Acid 1.8 Calcium Magnesium Total Bilirubin Direct Bilirubin AST ALT Alkaline Phosphatase C-Reactive Protein Total Protein Albumin Lipase Beta-Hydroxybutyrate Urine Color Urine Appearance Urine pH Ur Specific [place] Urine Protein Urine Glucose (UA) Urine Ketones Urine Blood Urine Nitrite Ur Leukocyte Esterase Urine RBC Urine WBC Ur Squamous Epith Cells Urine Bacteria Hyaline Casts Chlam trachomat DNA PCR N.gonorrhoeae DNA (PCR) Imaging Radiologist's Impressions: Impressions Knee X-Ray 09/08/23 11:19 IMPRESSION: Degenerative type changes. KUB X-Ray 09/08/23 13:20 IMPRESSION: Small volume of stool in colon. No evidence for constipation. Scrotum Ultrasound 09/08/23 14:40 IMPRESSION: No evidence of testicular torsion. Small bilateral hydroceles. Scrotum Ultrasound 09/08/23 14:40 IMPRESSION: No evidence of testicular torsion. Small bilateral hydroceles. Abdomen/Pelvis CT 09/08/23 15:50 IMPRESSION: Marked prostatomegaly. No hydronephrosis. Fleischner guidelines were followed. Assessment and Plan (1) Acute UTI: Status: Acute (2) WILLIAM (acute kidney injury): Status: Acute (3) Hyperglycemia: Status: Acute Plan This is a 73-year-old male with pertinent history of CAD status post CABG, insulin-dependent diabetes mellitus, hypertension, mood disorder, BPH, DEANDRE on CPAP, gastroesophageal reflux disease who presents to the emergency department for evaluation of feeling unwell and dysuria. #. Sepsis due to acute UTI: Resuscitated with IV crystalloids. Initiating empiric IV antibiotics. Lactic acid and blood culture obtained. Follow urine culture #. Acute kidney injury, stage I: Monitor urine output and creatinine with crystalloid resuscitation. Avoid nephrotoxins #. Uncontrolled insulin-dependent diabetes mellitus with hyperglycemia: Initiating basal plus insulin regimen #. Diarrhea: Obtaining GI panel and C diff #. Hypertension: Hold ARB in the setting of WILLIAM #. Mood disorder: Continue home mood stabilizers #. Right knee osteoarthritis: Analgesia p.r.n.. Outpatient follow-up #. BPH: On finasteride and Flomax #. DEANDRE: Continue CPAP at bedtime #. Gastroesophageal reflux disease: On PPI Med rec pending DVT prophylaxis: Lovenox Full code Admit as inpatient and will require two night minimum hospital stay for IV antibiotics (as above), which is not possible in a lesser acute setting. Quality Stroke Does the patient have a stroke diagnosis?: No VTE Prior VTE?: No VTE Risk Level:: Medical - moderate - high VTE Device Contraindication: Treatment Not Indicated VTE Drug Contraindication: N/A - Med Ordered
[2023-09-08 21:31] LABS: Glucose, Whole Blood 233 mg/dL (60-115)
[2023-09-08] MEDS: Insulin Lispro 100 UNIT/ML 3 ML VIAL SUBCUT (21:33)
[2023-09-08] MEDS: Enoxaparin Sodium 30 MG/0.3 ML SYRINGE SUBCUT (21:34)
--- NOTE | 2023-09-08 21:35 | PHA.MEDREC ---
Addendum entered by Tran Mays, [facility] 09/09/23 11:13: Patient did confirm he takes metformin despite no recent claim history. Addendum entered by aKrla Flores, [facility] 09/08/23 21:52: Patients said she had a bottle of metformin in front of her when she was naming off patients medications, however patient has no claims for metformin. Will leave for AM pharmacist to ask patient if they take it as patient is asleep at this time. Original Note: Pharmacy Consult ? Medication Reconciliation Pharmacy has completed the medication reconciliation. Went to talk to patient and he was asleep and couldn't arise. I called his and spoke with her and daughter who was at home and confirmed what I could with them. I spent 20 minutes asking about meds and about 3 minutes in they put me on hold for about 10 to get a run down on his meds, I confirmed what they could when they returned and anything else they had I used claims to confirm the rest. The was able to confirm his Trulicity pen once a week on Fridays and he did take his last dose last Thursday. He is also on Lantus Solostar 100 units daily and Humalog 16 units TIDAC. I also was not able to confirm when he last took the rest of his medications.
--- NOTE | 2023-09-08 21:35 | PC.NURSE ---
POC = 233 mg/dL s/p IVP insulin. insulin administered per sliding scale. LR continues to infuse at this time. pt continues to rest in no apparent distress.has no complaints. denies pain. no sob/wob noted. respirations even/unlabored. pt waiting for bed assignment. plan of car ongoing. call pro placed within reach.
[2023-09-08 21:39] VITALS: BP 132/61; PULSE 113; RESP 18; TEMP 38; O2SAT 96
[2023-09-08] MEDS: Acetaminophen 325 MG TABLET 650 MG PO (21:44)
--- NOTE | 2023-09-08 21:45 | PC.NURSE ---
pt noted to have 100.4 oral temp and tachycardic at 115-120 bpm. otherwise vss and up to date. pt denies any chest pain/palpitations. sinus tachy on the classroom monitor. PRN tylenol utilized from the APR. effectiveness pending.
--- NOTE | 2023-09-08 22:30 | PC.NURSE ---
pt noted to be going in random outbursts of sinus tachy at 15-=160 bpm. pt denies any chest pain/palpations. ekg ordered/performed/sent to admitting provider - dr. philip.
[2023-09-09] VITALS (7 sets, daily range): BP systolic 119–147; BP diastolic 48–69; PULSE 88–118; RESP 12–20; TEMP 36.3–37.2; O2SAT 92–98
[2023-09-09] MEDS: cefTRIAXone sodium 1 GM in 0.9 % Sodium Chloride 50 ML IV (00:11)
--- NOTE | 2023-09-09 00:13 | PC.NURSE ---
Took over care from RAYSA Mcclellan at 23:15pm, medicated per apr, pt transferred to unit.
[2023-09-09] MEDS: traZODone HCL 100 MG TABLET PO ×2 (01:52→20:44)
[2023-09-09] MEDS: traMADoL HCL 50 MG TABLET PO ×3 (01:52→20:58)
--- NOTE | 2023-09-09 02:05 | PC.NURSE ---
unable to obtain lab stool sample as it was contaminated with urine
[2023-09-09 06:42] LABS: Hematocrit 39.7 % (42.0-52.0); Hemoglobin 13.6 g/dl (14.0-18.0); Mean Corpuscular HGB Conc 34.3 g/dl (31.0-36.0); Mean Corpuscular Hemoglobin 28.4 pg (27.0-33.0); Mean Corpuscular Volume 82.9 fL (80.0-98.0); Mean Platelet Volume 10.2 fL (9.4-12.4); Platelet Count 116 X10*3/uL (160-400); Red Blood Count 4.79 X10*6/uL (4.60-5.80); Red Cell Distribution Width 15.2 % (11.0-16.0); White Blood Count 18.2 X10*3/uL (4.8-10.8)
[2023-09-09 07:03] LABS: Anion Gap 19 (12-20); Blood Urea Nitrogen 13 mg/dL (9-16); Calcium 9.1 mg/dL (8.4-10.2); Carbon Dioxide 16 mmol/L (22-29); Chloride 98 mmol/L (96-108); Creatinine Clr Calc Pharmacy 60.6; Estimated Glomerular Filt Rate > 60; Glucose Random 288 mg/dL (60-115); Potassium 3.1 mmol/L (3.3-5.1); Sodium 130 mmol/L (135-145)
[2023-09-09 07:27] LABS: Glucose, Whole Blood 291 mg/dL (60-115)
[2023-09-09 08:49] LABS: Band Neutrophils Percent 5 % (3-5); Lymphocytes Percent Manual 11 % (20-40); Monocytes Absolute Manual 0.9 X10*3/uL (0.1-1.2); Monocytes Percent Manual 5 % (2-11); Myelocytes Absolute 0.4 X10*/uL; Myelocytes Percent 2 %; Neutrophils Absolute Manual 14.9 X10*3/uL (2.0-8.3); Neutrophils Percent Manual 77 % (45-73)
[2023-09-09 08:52] LABS: Burr Cells 1+ (0-2) /OIF; Platelet Estimate DECREASED (NORMAL); Platelet Morphology Comment NORMAL; RBC Morphology NOTED
[2023-09-09] MEDS: cilostazoL 100 MG TABLET PO ×2 (09:13→20:44)
[2023-09-09] MEDS: Omeprazole 40 MG CAPSULE.DR PO ×2 (09:13→17:25)
[2023-09-09] MEDS: Escitalopram Oxalate 10 MG TABLET PO (09:13)
[2023-09-09] MEDS: amLODIPine Besylate 10 MG TABLET PO (09:13)
[2023-09-09] MEDS: Atorvastatin Calcium 80 MG TABLET PO (09:17)
[2023-09-09] MEDS: Metoprolol Tartrate 50 MG TABLET PO ×2 (09:17→20:44)
[2023-09-09] MEDS: Aspirin Enteric Coated 81 MG TABLET.DR PO (09:17)
[2023-09-09] MEDS: Isosorbide Mononitrate 60 MG TAB.ER.24H PO (09:17)
[2023-09-09] MEDS: Potassium Chloride ER 20 MEQ TAB.ER.PRT 40 MEQ PO (09:17)
[2023-09-09] MEDS: Valsartan 80 MG TABLET PO (09:17)
[2023-09-09] MEDS: Ezetimibe 10 MG TABLET PO (09:18)
[2023-09-09] MEDS: Insulin Lispro 100 UNIT/ML 3 ML VIAL SUBCUT ×4 (09:18→20:45)
[2023-09-09] MEDS: 0.9 % Sodium Chloride Flush 3 ML SYRINGE IVFLUSH ×3 (09:19→20:46)
--- NOTE | 2023-09-09 09:48 | MHC.CM.PN ---
Patient is unavailable; CM spoke with /Salima @ [phone] and addressed IMM with her (original will be mailed certified letter to Salima and a copy has been placed on the chart). Patient lives in an apartment with his and 16 year old Granddaughter and he required no services nor DME [employer]. Home/self care is the goal and CM has initiated and will follow for dc planning. PCP is Dr. Gonzales.
--- NOTE | 2023-09-09 10:35 | P.PNIM_ITS ---
Subjective Subjective Date of Service: 09/09/23 Interval History: Afebrile. C/o dysuria, rectal pain, and difficulty urinating. Notes diarrhea. SCr normalized. BCx positive for GNRs. Physical Exam 2 Vital Signs: Vital Signs: Last Vital Signs Temp 97.4 F 09/09/23 07:31 Pulse 114 H 09/09/23 07:31 Resp 18 09/09/23 07:31 BP 119/66 09/09/23 07:31 Pulse Ox 95 09/09/23 07:31 O2 Del Method Room Air 09/09/23 07:31 BMI result Body Mass Index 33.5 Gen: in no acute distress HEENT: sclera anicteric, moist mucus membranes Neck: supple Lungs: clear to auscultation bilaterally Heart: regular rate and rhythm, no murmurs Abd: soft, non-tender, non-distended Ext: no edema Skin: warm/well-perfused Neuro: alert and oriented x3, no focal findings Psych: appropriate affect Objective Data Active Medications Acetaminophen (Acetaminophen 325 Mg Tablet) 650 mg PO Q6H PRN PRN Reason: Pain, Mild (Pain Scale 1-3), fever or headache Last Admin: 09/08/23 21:44 Dose: 650 mg Documented By: LJ Amlodipine Besylate (Amlodipine Besylate 10 Mg Tablet) 10 mg PO DAILY [facility]; Protocol Last Admin: 09/09/23 09:13 Dose: 10 mg Documented By: MIREYA Aspirin (Aspirin Enteric Coated 81 Mg Tablet.Dr) 81 mg PO DAILY [facility] Last Admin: 09/09/23 09:17 Dose: 81 mg Documented By: MIREYA Atorvastatin Calcium (Atorvastatin Calcium 80 Mg Tablet) 80 mg PO DAILY [facility] Last Admin: 09/09/23 09:17 Dose: 80 mg Documented By: MIREYA Calcium Carbonate (Calcium Carbonate 750 Mg Tab.Chew) 750 mg PO Q4H PRN PRN Reason: Heartburn Cilostazol (Cilostazol 100 Mg Tablet) 100 mg PO BID [facility] Last Admin: 09/09/23 09:13 Dose: 100 mg Documented By: MIREYA Ezetimibe (Ezetimibe 10 Mg Tablet) 10 mg PO DAILY [facility] Last Admin: 09/09/23 09:18 Dose: 10 mg Documented By: MIREYA Enoxaparin Sodium (Enoxaparin Sodium 30 Mg/0.3 Ml Syringe) 30 mg SUBCUT Q24H [facility] Last Admin: 09/08/23 21:34 Dose: 30 mg Documented By: LJ Escitalopram Oxalate (Escitalopram Oxalate 10 Mg Tablet) 10 mg PO DAILY [facility] Last Admin: 09/09/23 09:13 Dose: 10 mg Documented By: MIREYA Glucose (Glucose Gel 15 Gm Gel..Gram.) 15 gm PO Q15M PRN; Protocol PRN Reason: per Hypoglycemia Standing Ord. Dextrose (D10) 250 mls @ 750 mls/hr IV Q15M PRN; Protocol PRN Reason: per Hypoglycemia Standing Ord. Ceftriaxone Sodium 2 gm/ (Sodium Chloride) 50 mls @ 100 mls/hr IV Q24H [facility] Insulin Glargine (Insulin Glargine,Hum.Rec.Anlog 100 Unit/Ml 10 Ml Vial) 60 unit SUBCUT BEDTIME [facility] Insulin Human Lispro (Insulin Lispro 100 Unit/Ml 3 Ml Vial) 0 unit SUBCUT QIDACHS [facility]; Protocol Last Admin: 09/09/23 09:18 Dose: 12 unit Documented By: MIREYA Isosorbide Mononitrate (Isosorbide Mononitrate 60 Mg Tab.Er.24h) 60 mg PO DAILY [facility]; Protocol Last Admin: 09/09/23 09:17 Dose: 60 mg Documented By: MIREYA Magnesium Hydroxide (Milk Of Magnesia 30 Ml Oral.Susp) 30 ml PO DAILY PRN PRN Reason: Constipation Melatonin (Melatonin 3 Mg Tablet) 6 mg PO BEDTIME PRN PRN Reason: Insomnia Metoprolol Tartrate (Metoprolol Tartrate 50 Mg Tablet) 50 mg PO BID [facility]; Protocol Last Admin: 09/09/23 09:17 Dose: 50 mg Documented By: MIREYA Omeprazole (Omeprazole 40 Mg Capsule.Dr) 40 mg PO BID@0630,1630 [facility] Last Admin: 09/09/23 09:13 Dose: 40 mg Documented By: MIREYA Ondansetron HCl (Ondansetron Hcl 4 Mg/2 Ml Vial) 4 mg IVPUSH Q8H PRN PRN Reason: Nausea and Vomiting Sodium Chloride (0.9 % Sodium Chloride Flush 3 Ml Syringe) 3 ml IVFLUSH QSHIFT [facility] Last Admin: 09/09/23 09:19 Dose: 3 ml Documented By: MIREYA Tramadol HCl (Tramadol Hcl 50 Mg Tablet) 50 mg PO Q6H PRN PRN Reason: Pain, Severe (Pain Scale 7-10) Last Admin: 09/09/23 09:36 Dose: 50 mg Documented By: MIREYA Trazodone HCl (Trazodone Hcl 100 Mg Tablet) 100 mg PO BEDTIME [facility] Valsartan (Valsartan 80 Mg Tablet) 80 mg PO DAILY [facility] Last Admin: 09/09/23 09:17 Dose: 80 mg Documented By: MIREYA Labs 09/09/23 06:20 09/09/23 06:20 Labs: Laboratory Results - last 24 hr 09/08/23 09/08/23 09/08/23 11:37 13:36 14:43 MCV 82.2 MCH 28.9 MCHC 35.2 RDW 15.4 Plt Count 138 L D MPV 9.9 Immature Gran % (Auto) Cancelled Neut % (Auto) Cancelled Lymph % (Auto) Cancelled Bryan % (Auto) Cancelled Eos % (Auto) Cancelled Baso % (Auto) Cancelled Lymph # (Auto) Cancelled Bryan # (Auto) Cancelled Eos # (Auto) Cancelled Baso # (Auto) Cancelled Abs Immat Gran (auto) Cancelled Absolute Neuts (auto) Cancelled Absolute Nucleated RBC 0.000 Nucleated RBC % (auto) 0.0 Neutrophils % (Manual) 84 H Band Neutrophils % 9 H Lymphocytes % (Manual) 4 L Atypical Lymphs % (Man) 1 Monocytes % (Manual) 1 L Metamyelocytes % 1 Myelocytes % Abs Neuts (Manual) 16.6 H Lymphocytes # (Manual) 0.7 L Atyp Lymphs # (Manual) 0.2 Monocytes # (Manual) 0.2 Metamyelocytes # 0.2 Myelocytes # Toxic Vacuolation PRESENT Dohle Bodies PRESENT Platelet Estimate SLIGHTLY DECREASED Plt Morphology Comment NORMAL RBC Morphology NORMAL Yeni Cells ESR 62 H VBG pH 7.37 VBG pCO2 48 VBG pO2 28 VBG HCO3 28 H VBG O2 Saturation 39.0 VBG Base Excess 2.4 Anion Gap 14 Estim Creat Clear Calc 35.5 Estimated GFR 34 POC Glucose Random Glucose 501 H* Lactic Acid Calcium 9.5 Magnesium 1.8 Total Bilirubin 0.7 Direct Bilirubin 0.3 AST 60 H ALT 30 Alkaline Phosphatase 125 H C-Reactive Protein 46.46 H Total Protein 7.6 Albumin 3.6 Lipase 13 Beta-Hydroxybutyrate 0.61 H Urine Color Yellow Urine Appearance Cloudy Urine pH 5.5 Ur Specific [place] >= 1.030 H Urine Protein 30 (1+) H Urine Glucose (UA) >=1000 H Urine Ketones Negative Urine Blood Large (3+) H Urine Nitrite Negative Ur Leukocyte Esterase Trace H Urine RBC 3-5 H Urine WBC >50 H Ur Squamous Epith Cells 0-2 Urine Bacteria 2+ Hyaline Casts 0-2 Chlam trachomat DNA PCR N.gonorrhoeae DNA (PCR) 09/08/23 09/08/23 09/08/23 15:20 16:18 17:23 MCV MCH MCHC RDW Plt Count MPV Immature Gran % (Auto) Neut % (Auto) Lymph % (Auto) Bryan % (Auto) Eos % (Auto) Baso % (Auto) Lymph # (Auto) Bryan # (Auto) Eos # (Auto) Baso # (Auto) Abs Immat Gran (auto) Absolute Neuts (auto) Absolute Nucleated RBC Nucleated RBC % (auto) Neutrophils % (Manual) Band Neutrophils % Lymphocytes % (Manual) Atypical Lymphs % (Man) Monocytes % (Manual) Metamyelocytes % Myelocytes % Abs Neuts (Manual) Lymphocytes # (Manual) Atyp Lymphs # (Manual) Monocytes # (Manual) Metamyelocytes # Myelocytes # Toxic Vacuolation Dohle Bodies Platelet Estimate Plt Morphology Comment RBC Morphology [place] Cells ESR VBG pH VBG pCO2 VBG pO2 VBG HCO3 VBG O2 Saturation VBG Base Excess Anion Gap Estim Creat Clear Calc Estimated GFR POC Glucose 411 H* 351 H* Random Glucose Lactic Acid Calcium Magnesium Total Bilirubin Direct Bilirubin AST ALT Alkaline Phosphatase C-Reactive Protein Total Protein Albumin Lipase Beta-Hydroxybutyrate Urine Color Urine Appearance Urine pH Ur Specific [place] Urine Protein Urine Glucose (UA) Urine Ketones Urine Blood Urine Nitrite Ur Leukocyte Esterase Urine RBC Urine WBC Ur Squamous Epith Cells Urine Bacteria Hyaline Casts Chlam trachomat DNA PCR NOT DETECTED N.gonorrhoeae DNA (PCR) NOT DETECTED 09/08/23 09/08/23 09/08/23 18:22 19:25 21:27 MCV MCH MCHC RDW Plt Count MPV Immature Gran % (Auto) Neut % (Auto) Lymph % (Auto) Bryan % (Auto) Eos % (Auto) Baso % (Auto) Lymph # (Auto) Bryan # (Auto) Eos # (Auto) Baso # (Auto) Abs Immat Gran (auto) Absolute Neuts (auto) Absolute Nucleated RBC Nucleated RBC % (auto) Neutrophils % (Manual) Band Neutrophils % Lymphocytes % (Manual) Atypical Lymphs % (Man) Monocytes % (Manual) Metamyelocytes % Myelocytes % Abs Neuts (Manual) Lymphocytes # (Manual) Atyp Lymphs # (Manual) Monocytes # (Manual) Metamyelocytes # Myelocytes # Toxic Vacuolation Dohle Bodies Platelet Estimate Plt Morphology Comment RBC Morphology [place] Cells ESR VBG pH VBG pCO2 VBG pO2 VBG HCO3 VBG O2 Saturation VBG Base Excess Anion Gap Estim Creat Clear Calc Estimated GFR POC Glucose 314 H 233 H Random Glucose Lactic Acid 1.8 Calcium Magnesium Total Bilirubin Direct Bilirubin AST ALT Alkaline Phosphatase C-Reactive Protein Total Protein Albumin Lipase Beta-Hydroxybutyrate Urine Color Urine Appearance Urine pH Ur Specific [place] Urine Protein Urine Glucose (UA) Urine Ketones Urine Blood Urine Nitrite Ur Leukocyte Esterase Urine RBC Urine WBC Ur Squamous Epith Cells Urine Bacteria Hyaline Casts Chlam trachomat DNA PCR N.gonorrhoeae DNA (PCR) 09/09/23 09/09/23 06:20 07:22 MCV 82.9 MCH 28.4 MCHC 34.3 RDW 15.2 Plt Count 116 L MPV 10.2 Immature Gran % (Auto) Cancelled Neut % (Auto) Cancelled Lymph % (Auto) Cancelled Bryan % (Auto) Cancelled Eos % (Auto) Cancelled Baso % (Auto) Cancelled Lymph # (Auto) Cancelled Bryan # (Auto) Cancelled Eos # (Auto) Cancelled Baso # (Auto) Cancelled Abs Immat Gran (auto) Cancelled Absolute Neuts (auto) Cancelled Absolute Nucleated RBC 0.000 Nucleated RBC % (auto) 0.0 Neutrophils % (Manual) 77 H Band Neutrophils % 5 Lymphocytes % (Manual) 11 L Atypical Lymphs % (Man) Monocytes % (Manual) 5 Metamyelocytes % Myelocytes % 2 Abs Neuts (Manual) 14.9 H Lymphocytes # (Manual) 2.0 Atyp Lymphs # (Manual) Monocytes # (Manual) 0.9 Metamyelocytes # Myelocytes # 0.4 Toxic Vacuolation Dohle Bodies Platelet Estimate DECREASED Plt Morphology Comment NORMAL RBC Morphology NOTED [place] Cells 1+ (0-2) ESR VBG pH VBG pCO2 VBG pO2 VBG HCO3 VBG O2 Saturation VBG Base Excess Anion Gap 19 Estim Creat Clear Calc 60.6 Estimated GFR > 60 POC Glucose 291 H Random Glucose 288 H Lactic Acid Calcium 9.1 Magnesium Total Bilirubin Direct Bilirubin AST ALT Alkaline Phosphatase C-Reactive Protein Total Protein Albumin Lipase Beta-Hydroxybutyrate Urine Color Urine Appearance Urine pH Ur Specific [place] Urine Protein Urine Glucose (UA) Urine Ketones Urine Blood Urine Nitrite Ur Leukocyte Esterase Urine RBC Urine WBC Ur Squamous Epith Cells Urine Bacteria Hyaline Casts Chlam trachomat DNA PCR N.gonorrhoeae DNA (PCR) Microbiology Microbiology Results: Microbiology 09/08/23 18:11 - Preliminary Blood - Venous Prelim: GNR Gram Stain only 09/08/23 18:11 Blood Culture - Preliminary Blood - Venous Prelim: GNR Gram Stain only Assessment and Plan (1) Gram-negative bacteremia: Status: Acute Plan d2 73yo M with CAD s/p CABG, DM2, HTN, BPH, DEANDRE on CPAP presenting with dysuria and malaise, found to have sepsis due to UTI/bacteremia sepsis due to UTI/bacteremia; concern for prostatitis - 09/07- ceftriaxone; follow BCx + UCx from 09/07 - Urology consultation WILLIAM, prerenal - resolved after fluid resuscitation diarrhea - GI panel, Cdiff HTN - irbesartan, amlodipine, Imdur CAD - atorvastatin, ASA, Imdur, metoprolol tartrate, ezetimibe PAD - cilostazol, atorvastatin, ASA DEANDRE - CPAP at night DM2 with hyperglycemia - basal-bolus insulin mood disorder - escitalopram VTE ppx - enoxaparin dispo - eventually home In my clinical judgment, the patient requires continued inpatient hospitalization for the following reasons: IV ABX, bacteremia Total time managing care of this patient today: 35 minutes. Quality Stroke Does the patient have a stroke diagnosis?: No VTE Prior VTE?: No VTE Risk Level:: Medical - moderate - high VTE Device Contraindication: Treatment Not Indicated VTE Drug Contraindication: N/A - Med Ordered
[2023-09-09 11:21] LABS: Glucose, Whole Blood 308 mg/dL (60-115)
--- NOTE | 2023-09-09 13:16 | P.CDIM_ITS ---
PROVIDER RESPONSE TEXT: To clarify, the appropriate diagnosis supported by the clinical indicators: Other (explain): PSEUDOhyponatremia due to hyperglycemia QUERY TEXT: PHYSICIAN'S DOCUMENTATION REQUEST Date of Query: 09/09/2023 11:49 AM EDT Patient Name: Len Franks Admit Date: 09/09/2023 Dear Neo Ramos MD, A review of the medical record indicates additional documentation may be needed. Please review below and update the documentation accordingly. Clinical Indicators: LABS: sodium 130 L fluids Based on the above, is there a diagnosis that correlates with these lab findings: Hyponatremia resolved, possible, probable Labs indicate a diagnosis of (please specify) Other (explain) Clinically unable to determine (explain) Thank you, Olga David, CCS, CDIS Use of terms such as suspected, likely, concern for, or probable (associated with a specific diagnosi s that is being evaluated, monitored, or treated as if it exists) are acceptable and can be coded in the inpatient se tting, when documented at the time of discharge. Please use your independent medical judgment in providing your response. THIS QUERY IS PART OF THE PERMANENT MEDICAL RECORD
--- NOTE | 2023-09-09 13:16 | P.CDIM_ITS ---
PROVIDER RESPONSE TEXT: To clarify, the appropriate diagnosis supported by the clinical indicators: Hypokalemia: hypokalemia QUERY TEXT: PHYSICIAN'S DOCUMENTATION REQUEST Date of Query: 09/09/2023 11:51 AM EDT Patient Name: Len Franks Admit Date: 09/09/2023 Dear Neo Ramos MD, A review of the medical record indicates additional documentation may be needed. Please review below and update the documentation accordingly. Clinical Indicators: LABS: potassium 3.1 L Klor-Con Based on the above, is there a diagnosis that correlates with these lab findings: Hypokalemia resolved, possible, probable, suspected Labs indicate a diagnosis of (please specify) Other (explain) Clinically unable to determine (explain) Thank you, Olga David, CCS, CDIS Use of terms such as suspected, likely, concern for, or probable (associated with a specific diagnosi s that is being evaluated, monitored, or treated as if it exists) are acceptable and can be coded in the inpatient se tting, when documented at the time of discharge. Please use your independent medical judgment in providing your response. THIS QUERY IS PART OF THE PERMANENT MEDICAL RECORD
--- NOTE | 2023-09-09 13:18 | PM.UROCN ---
History of Present Illness Consult details Consult date: 09/09/23 Narrative: CC: Prostatitis 73-year-old male. Presented to emergency department for evaluation of chronic dysuria and fatigue. Complains of urinary incontinence with dysuria and change in undergo color urine Reports urinary hesitancy Admits to low-grade fever with chills Has been noncompliant with his diabetic medication Investigations WBC 18.2, patient blood sugar of 400 on admission, evidence large glucose in urine 3+, blood 3+ Clinical picture - untreated diabetes with glucosuria and hematuria, negative nitrite Urine culture and blood culture positive E coli pansensitive Recommend aggressive diabetic management, BPH medications Antibiotic therapy follow-up urosepsis - will need 14 days therapy Review of Systems Constitutional: Constitutional: Reports as per HPI and Reports no additional constitutional complaints Cardiovascular: Cardiovascular: Reports as per HPI and Reports no additional cardiovascular complaints Respiratory: Respiratory: Reports as per HPI and Reports no additional respiratory complaints Gastrointestinal: Gastrointestinal: Reports as per HPI and Reports no additional gastrointestinal complaints Genitourinary: Genitourinary: Reports as per HPI Musculoskeletal: Musculoskeletal: Reports no additional musculoskeletal complaints and Reports as per HPI Neurologic: Reports system reviewed and no additional complaints, except as documented and Reports as per HPI PMFSH Past Medical History Medical History Hyperthyroidism Multinodular thyroid HLD (hyperlipidemia) HTN (hypertension) Obesity NSTEMI (non-ST elevated myocardial infarction) CAD (coronary artery disease) Diabetes mellitus Myocardial infarct Family History Family History Mother Cardiovascular disease Father Medical history unknown Sister Cancer Brother Cancer Surgical History Surgical History History of esophagogastroduodenoscopy (EGD) Hx of colonoscopy Hx of ultrasound guided needle biopsy Hx of CABG (~07/2016) Social History Social History Household Members: Spouse and Children Housing: House Do you presently have visiting nurse or other home services: No Alcohol intake: former Patient Tobacco Use Status: Former Tobacco user service: No Current occupational status: unemployed Meds Allergies Allergy/AdvReac Type Severity Reaction Status Date / Time No Known Allergies Allergy Verified 09/08/23 10:55 [No Known Allergies*] Active Medications: Current Medications Acetaminophen (Acetaminophen 325 Mg Tablet) 650 mg PO Q6H PRN PRN Reason: Pain, Mild (Pain Scale 1-3), fever or headache Last Admin: 09/08/23 21:44 Dose: 650 mg Amlodipine Besylate (Amlodipine Besylate 10 Mg Tablet) 10 mg PO DAILY [facility]; Protocol Last Admin: 09/09/23 09:13 Dose: 10 mg Aspirin (Aspirin Enteric Coated 81 Mg Tablet.Dr) 81 mg PO DAILY [facility] Last Admin: 09/09/23 09:17 Dose: 81 mg Atorvastatin Calcium (Atorvastatin Calcium 80 Mg Tablet) 80 mg PO DAILY [facility] Last Admin: 09/09/23 09:17 Dose: 80 mg Calcium Carbonate (Calcium Carbonate 750 Mg Tab.Chew) 750 mg PO Q4H PRN PRN Reason: Heartburn Cilostazol (Cilostazol 100 Mg Tablet) 100 mg PO BID [facility] Last Admin: 09/09/23 09:13 Dose: 100 mg Ezetimibe (Ezetimibe 10 Mg Tablet) 10 mg PO DAILY [facility] Last Admin: 09/09/23 09:18 Dose: 10 mg Enoxaparin Sodium (Enoxaparin Sodium 30 Mg/0.3 Ml Syringe) 30 mg SUBCUT Q24H [facility] Last Admin: 09/08/23 21:34 Dose: 30 mg Escitalopram Oxalate (Escitalopram Oxalate 10 Mg Tablet) 10 mg PO DAILY [facility] Last Admin: 09/09/23 09:13 Dose: 10 mg Glucose (Glucose Gel 15 Gm Gel..Gram.) 15 gm PO Q15M PRN; Protocol PRN Reason: per Hypoglycemia Standing Ord. Dextrose (D10) 250 mls @ 750 mls/hr IV Q15M PRN; Protocol PRN Reason: per Hypoglycemia Standing Ord. Ceftriaxone Sodium 2 gm/ (Sodium Chloride) 50 mls @ 100 mls/hr IV Q24H [facility] Insulin Glargine (Insulin Glargine,Hum.Rec.Anlog 100 Unit/Ml 10 Ml Vial) 60 unit SUBCUT BEDTIME [facility] Insulin Human Lispro (Insulin Lispro 100 Unit/Ml 3 Ml Vial) 0 unit SUBCUT QIDACHS [facility]; Protocol Last Admin: 09/09/23 13:03 Dose: 16 unit Isosorbide Mononitrate (Isosorbide Mononitrate 60 Mg Tab.Er.24h) 60 mg PO DAILY [facility]; Protocol Last Admin: 09/09/23 09:17 Dose: 60 mg Magnesium Hydroxide (Milk Of Magnesia 30 Ml Oral.Susp) 30 ml PO DAILY PRN PRN Reason: Constipation Melatonin (Melatonin 3 Mg Tablet) 6 mg PO BEDTIME PRN PRN Reason: Insomnia Metoprolol Tartrate (Metoprolol Tartrate 50 Mg Tablet) 50 mg PO BID [facility]; Protocol Last Admin: 09/09/23 09:17 Dose: 50 mg Omeprazole (Omeprazole 40 Mg Capsule.Dr) 40 mg PO BID@0630,1630 [facility] Last Admin: 09/09/23 09:13 Dose: 40 mg Ondansetron HCl (Ondansetron Hcl 4 Mg/2 Ml Vial) 4 mg IVPUSH Q8H PRN PRN Reason: Nausea and Vomiting Sodium Chloride (0.9 % Sodium Chloride Flush 3 Ml Syringe) 3 ml IVFLUSH QSHIFT [facility] Last Admin: 09/09/23 09:19 Dose: 3 ml Tramadol HCl (Tramadol Hcl 50 Mg Tablet) 50 mg PO Q6H PRN PRN Reason: Pain, Severe (Pain Scale 7-10) Last Admin: 09/09/23 09:36 Dose: 50 mg Trazodone HCl (Trazodone Hcl 100 Mg Tablet) 100 mg PO BEDTIME [facility] Valsartan (Valsartan 80 Mg Tablet) 80 mg PO DAILY [facility] Last Admin: 09/09/23 09:17 Dose: 80 mg Home Medications ?Medication ?Instructions ?Recorded ?Confirmed ?Last Taken ?Type escitalopram oxalate 10 mg tablet 10 mg PO DAILY 02/07/20 09/08/23 Unknown History metformin 1,000 mg tablet 1,000 mg PO BID 02/07/20 09/09/23 Unknown History nitroglycerin 0.4 mg sublingual 0.4 mg sublingual Q5M PRN Chest 02/07/20 09/08/23 Unknown History tablet Pain dulaglutide 3 mg/0.5 mL 3 mg subcut FR 10/30/21 09/08/23 09/04/23 History subcutaneous pen injector (Trulicity) insulin glargine 100 unit/mL (3 100 unit subcut DAILY 10/30/21 09/08/23 06/25/23 History mL) subcutaneous pen (Lantus Solostar U-100 Insulin) trazodone 100 mg tablet 100 mg PO BEDTIME 02/23/23 09/08/23 Unknown History amlodipine 10 mg tablet 10 mg PO DAILY 09/08/23 09/08/23 Unknown History aspirin 81 mg tablet,delayed 81 mg PO DAILY 09/08/23 09/08/23 Unknown History release ezetimibe 10 mg tablet 10 mg PO DAILY 09/08/23 09/08/23 Unknown History insulin lispro 100 unit/mL 16 unit subcut TIDAC 09/08/23 09/08/23 Unknown History subcutaneous pen (Humalog KwikPen (U-100) Insulin) irbesartan 150 mg tablet 150 mg PO DAILY 09/08/23 09/08/23 Unknown History isosorbide mononitrate 60 mg 60 mg PO DAILY 09/08/23 09/08/23 Unknown History tablet,extended release 24 hr rosuvastatin 20 mg tablet 20 mg PO DAILY 09/08/23 09/08/23 Unknown History Physical Exam Vital Signs: Vital Signs: Last Vital Signs Temp 97.4 F 09/09/23 07:31 Pulse 114 H 09/09/23 07:31 Resp 18 09/09/23 07:31 BP 119/66 09/09/23 07:31 Pulse Ox 95 09/09/23 07:31 O2 Del Method Room Air 09/09/23 07:31 BMI result Body Mass Index 33.5 Const: General: cooperative, healthy appearing, comfortable and no acute distress Orientation/consciousness: patient oriented x3 HEENT: Face and sinus: Yes normal facial exam Mouth: moist mucous membranes Neck: Neck: Yes normal visual inspection, Yes full ROM and Yes trachea midline Chest: Chest palpation & inspection: normal inspection of the chest Resp: Effort & Inspection: normal respiratory effort, able to speak in complete sentences and no respiratory distress GI: Inspection: Yes normal to inspection Back/Spine/Pelvis: Cervical Spine: normal cervical lordosis Thoracic/Lumbar Spine: thoracic and lumbar spine normal to inspection Skin: General skin exam: no rashes or lesions noted Neuro: General: patient oriented x3, tone normal and moves all extremities Extrem: General: Yes normal to inspection and Yes capillary refill normal Results Labs 09/09/23 06:20 09/10/23 06:01 Labs: Abnormal lab results 09/08/23 09/08/23 09/08/23 Range/Units 13:36 14:43 16:18 WBC 17.8 H (4.8-10.8) X10*3/uL Hgb (14.0-18.0) g/dl Hct 41.2 L (42.0-52.0) % Plt Count 138 L D (160-400) X10*3/uL Neutrophils % (Manual) 84 H (45-73) % Band Neutrophils % 9 H (3-5) % Lymphocytes % (Manual) 4 L (20-40) % Monocytes % (Manual) 1 L (2-11) % Abs Neuts (Manual) 16.6 H (2.0-8.3) X10*3/uL Lymphocytes # (Manual) 0.7 L (1.2-4.9) X10*3/uL ESR 62 H (0-15) MM/HR VBG HCO3 28 H (22-26) mmol/L Sodium 132 L (135-145) mmol/L Potassium (3.3-5.1) mmol/L Carbon Dioxide (22-29) mmol/L BUN 20 H (9-16) mg/dL Creatinine 1.93 H (0.5-1.4) mg/dL POC Glucose 411 H* (60-115) mg/dL Random Glucose 501 H* (60-115) mg/dL AST 60 H (5-37) U/L Alkaline Phosphatase 125 H (39-117) U/L C-Reactive Protein 46.46 H (< or = 0.50) mg/dL Beta-Hydroxybutyrate 0.61 H (0.02-0.27) mmol/L 09/08/23 09/08/23 09/08/23 Range/Units 17:23 19:25 21:27 WBC (4.8-10.8) X10*3/uL Hgb (14.0-18.0) g/dl Hct (42.0-52.0) % Plt Count (160-400) X10*3/uL Neutrophils % (Manual) (45-73) % Band Neutrophils % (3-5) % Lymphocytes % (Manual) (20-40) % Monocytes % (Manual) (2-11) % Abs Neuts (Manual) (2.0-8.3) X10*3/uL Lymphocytes # (Manual) (1.2-4.9) X10*3/uL ESR (0-15) MM/HR VBG HCO3 (22-26) mmol/L Sodium (135-145) mmol/L Potassium (3.3-5.1) mmol/L Carbon Dioxide (22-29) mmol/L BUN (9-16) mg/dL Creatinine (0.5-1.4) mg/dL POC Glucose 351 H* 314 H 233 H (60-115) mg/dL Random Glucose (60-115) mg/dL AST (5-37) U/L Alkaline Phosphatase (39-117) U/L C-Reactive Protein (< or = 0.50) mg/dL Beta-Hydroxybutyrate (0.02-0.27) mmol/L 09/09/23 09/09/23 09/09/23 Range/Units 06:20 07:22 11:18 WBC 18.2 H (4.8-10.8) X10*3/uL Hgb 13.6 L (14.0-18.0) g/dl Hct 39.7 L (42.0-52.0) % Plt Count 116 L (160-400) X10*3/uL Neutrophils % (Manual) 77 H (45-73) % Band Neutrophils % (3-5) % Lymphocytes % (Manual) 11 L (20-40) % Monocytes % (Manual) (2-11) % Abs Neuts (Manual) 14.9 H (2.0-8.3) X10*3/uL Lymphocytes # (Manual) (1.2-4.9) X10*3/uL ESR (0-15) MM/HR VBG HCO3 (22-26) mmol/L Sodium 130 L (135-145) mmol/L Potassium 3.1 L (3.3-5.1) mmol/L Carbon Dioxide 16 L (22-29) mmol/L BUN (9-16) mg/dL Creatinine (0.5-1.4) mg/dL POC Glucose 291 H 308 H (60-115) mg/dL Random Glucose 288 H (60-115) mg/dL AST (5-37) U/L Alkaline Phosphatase (39-117) U/L C-Reactive Protein (< or = 0.50) mg/dL Beta-Hydroxybutyrate (0.02-0.27) mmol/L Short CBC 09/08/23 09/09/23 Range/Units 13:36 06:20 WBC 17.8 H 18.2 H (4.8-10.8) X10*3/uL Hgb 14.5 13.6 L (14.0-18.0) g/dl Hct 41.2 L 39.7 L (42.0-52.0) % Plt Count 138 L D 116 L (160-400) X10*3/uL BMP 09/08/23 09/09/23 13:36 06:20 Sodium 132 L 130 L Potassium 3.8 3.1 L Chloride 96 98 Carbon Dioxide 26 16 L BUN 20 H 13 Creatinine 1.93 H 1.13 Calcium 9.5 9.1 Liver Function 09/08/23 Range/Units 13:36 Total Bilirubin 0.7 (0.0-1.0) mg/dL Direct Bilirubin 0.3 (0.0-0.5) mg/dL AST 60 H (5-37) U/L ALT 30 (0-40) U/L Alkaline Phosphatase 125 H (39-117) U/L Albumin 3.6 (3.5-5.0) g/dL Urine 09/08/23 Range/Units 11:37 Urine Color Yellow Urine Appearance Cloudy Urine pH 5.5 (5.0-9.0) Ur Specific [place] >= 1.030 H (1.005-1.025) Urine Protein 30 (1+) H (Neg-Trace) mg/dL Urine Glucose (UA) >=1000 H (Negative) mg/dL All other labs normal. Assessment and Plan (1) Gram-negative bacteremia: Status: Acute (2) Nephrolithiasis: Status: Acute (3) Bladder outlet obstruction: Status: Acute Plan Treat urosepsis Manage diabetic crisis Start prostate medications Follow-up in office 6-8 weeks Procedures Date of Service Date of Service: 09/10/23
[2023-09-09 14:56] LABS: CDiff Gene PCR NEGATIVE (Negative)
[2023-09-09 15:29] LABS: Adenovirus F 40/41 Not Detected (Not Detect.); Astrovirus Not Detected (Not Detect.); Campylobacter Not Detected (Not Detect.); Cryptosporidium Not Detected (Not Detect.); Cyclospora cayetanensis Not Detected (Not Detect.); E. coli EAEC Detected (Not Detect.); E. coli EPEC Detected (Not Detect.); E. coli ETEC Not Detected (Not Detect.); E. coli STEC Not Detected (Not Detect.); Entamoeba histolytica Not Detected (Not Detect.); Giardia lamblia Not Detected (Not Detect.); Norovirus GI/GII Not Detected (Not Detect.); Plesiomonas shigelloides Not Detected (Not Detect.); Rotavirus A Not Detected (Not Detect.); Salmonella Not Detected (Not Detect.); Sapovirus Not Detected (Not Detect.); Shigella sp./EIEC Not Detected (Not Detect.); Vibrio Not Detected (Not Detect.); Vibrio Cholerae Not Detected (Not Detect.); Yersinia enterocolitica Not Detected (Not Detect.)
[2023-09-09] MEDS: Acetaminophen 325 MG TABLET 650 MG PO (15:35)
[2023-09-09] MEDS: cefTRIAXone sodium 2 GM in 0.9 % Sodium Chloride 50 ML IV (17:25)
[2023-09-09 20:28] LABS: Glucose, Whole Blood 250 mg/dL (60-115)
[2023-09-09 20:38] LABS: Glucose, Whole Blood 245 mg/dL (60-115)
[2023-09-09] MEDS: Enoxaparin Sodium 30 MG/0.3 ML SYRINGE SUBCUT (20:44)
[2023-09-09] MEDS: Insulin Glargine,Hum.rec.anlog 100 UNIT/ML 10 ML VIAL 60 UNIT SUBCUT (20:45)
[2023-09-10 01:23] VITALS: PULSE 96; RESP 18; O2SAT 94
[2023-09-10 03:28] VITALS: BP 145/66; PULSE 98; RESP 16; TEMP 36.7; O2SAT 93
[2023-09-10] MEDS: traMADoL HCL 50 MG TABLET PO ×3 (06:00→22:08)
[2023-09-10] MEDS: Omeprazole 40 MG CAPSULE.DR PO ×2 (06:00→16:37)
[2023-09-10 07:11] LABS: Anion Gap 16 (12-20); Blood Urea Nitrogen 21 mg/dL (9-16); Calcium 9.2 mg/dL (8.4-10.2); Carbon Dioxide 18 mmol/L (22-29); Chloride 100 mmol/L (96-108); Creatinine Clr Calc Pharmacy 64.6; Estimated Glomerular Filt Rate > 60; Glucose Random 265 mg/dL (60-115); Potassium 3.3 mmol/L (3.3-5.1); Sodium 131 mmol/L (135-145)
[2023-09-10 07:53] VITALS: BP 154/65; PULSE 106; RESP 20; TEMP 37.1; O2SAT 96
[2023-09-10 08:08] LABS: Glucose, Whole Blood 255 mg/dL (60-115)
[2023-09-10] MEDS: Valsartan 80 MG TABLET PO (08:08)
[2023-09-10] MEDS: Atorvastatin Calcium 80 MG TABLET PO (08:08)
[2023-09-10] MEDS: Isosorbide Mononitrate 60 MG TAB.ER.24H PO (08:08)
[2023-09-10] MEDS: cilostazoL 100 MG TABLET PO ×2 (08:09→22:08)
[2023-09-10] MEDS: Metoprolol Tartrate 50 MG TABLET PO ×2 (08:09→22:08)
[2023-09-10] MEDS: amLODIPine Besylate 10 MG TABLET PO (08:09)
[2023-09-10] MEDS: Ezetimibe 10 MG TABLET PO (08:09)
[2023-09-10] MEDS: Insulin Lispro 100 UNIT/ML 3 ML VIAL SUBCUT ×4 (08:09→22:09)
[2023-09-10] MEDS: Escitalopram Oxalate 10 MG TABLET PO (08:09)
[2023-09-10] MEDS: 0.9 % Sodium Chloride Flush 3 ML SYRINGE IVFLUSH ×3 (08:09→22:10)
[2023-09-10] MEDS: Aspirin Enteric Coated 81 MG TABLET.DR PO (08:09)
[2023-09-10 11:37] LABS: Glucose, Whole Blood 193 mg/dL (60-115)
--- NOTE | 2023-09-10 12:04 | HO.PM.IMPN ---
Subjective Subjective Date of Service: 09/10/23 Interval History: No acute issues overnight. Remains tolerant of therapies. Compliant with CPAP Review of Systems Denies chest pain Denies shortness of breath Denies nausea vomiting diarrhea Denies fever chills Physical Exam Vital Signs: Vital Signs: Last Vital Signs Temp 98.7 F 09/10/23 07:53 Pulse 106 H 09/10/23 07:53 Resp 20 09/10/23 07:53 BP 154/65 H 09/10/23 07:53 Pulse Ox 96 09/10/23 07:53 O2 Del Method Room Air 09/10/23 07:53 BMI result Body Mass Index 33.5 Const: Other: Awake alert no acute distress Resp: Other: Clear to auscultation bilaterally no rales rhonchi or wheezes Cardio: Other: No S4; positive S1-S2; no S3 murmurs rubs or gallops GI: Other: Soft nontender nondistended normoactive bowel sounds Extrem: Other: No edema bilaterally Objective Data Active Medications Acetaminophen (Acetaminophen 325 Mg Tablet) 650 mg PO Q6H PRN PRN Reason: Pain, Mild (Pain Scale 1-3), fever or headache Last Admin: 09/09/23 15:35 Dose: 650 mg Documented By: MIREYA Amlodipine Besylate (Amlodipine Besylate 10 Mg Tablet) 10 mg PO DAILY [facility]; Protocol Last Admin: 09/10/23 08:09 Dose: 10 mg Documented By: VALE Aspirin (Aspirin Enteric Coated 81 Mg Tablet.Dr) 81 mg PO DAILY [facility] Last Admin: 09/10/23 08:09 Dose: 81 mg Documented By: VALE Atorvastatin Calcium (Atorvastatin Calcium 80 Mg Tablet) 80 mg PO DAILY [facility] Last Admin: 09/10/23 08:08 Dose: 80 mg Documented By: VALE Calcium Carbonate (Calcium Carbonate 750 Mg Tab.Chew) 750 mg PO Q4H PRN PRN Reason: Heartburn Cilostazol (Cilostazol 100 Mg Tablet) 100 mg PO BID [facility] Last Admin: 09/10/23 08:09 Dose: 100 mg Documented By: VALE Ezetimibe (Ezetimibe 10 Mg Tablet) 10 mg PO DAILY [facility] Last Admin: 09/10/23 08:09 Dose: 10 mg Documented By: VALE Enoxaparin Sodium (Enoxaparin Sodium 30 Mg/0.3 Ml Syringe) 30 mg SUBCUT Q24H [facility] Last Admin: 09/09/23 20:44 Dose: 30 mg Documented By: TOM Escitalopram Oxalate (Escitalopram Oxalate 10 Mg Tablet) 10 mg PO DAILY [facility] Last Admin: 09/10/23 08:09 Dose: 10 mg Documented By: VALE Glucose (Glucose Gel 15 Gm Gel..Gram.) 15 gm PO Q15M PRN; Protocol PRN Reason: per Hypoglycemia Standing Ord. Dextrose (D10) 250 mls @ 750 mls/hr IV Q15M PRN; Protocol PRN Reason: per Hypoglycemia Standing Ord. Ceftriaxone Sodium 2 gm/ (Sodium Chloride) 50 mls @ 100 mls/hr IV Q24H [facility] Last Infusion: 09/09/23 18:38 Dose: Infused Documented By: MIREYA Insulin Glargine (Insulin Glargine,Hum.Rec.Anlog 100 Unit/Ml 10 Ml Vial) 60 unit SUBCUT BEDTIME [facility] Last Admin: 09/09/23 20:45 Dose: 60 unit Documented By: TOM Insulin Human Lispro (Insulin Lispro 100 Unit/Ml 3 Ml Vial) 0 unit SUBCUT QIDACHS [facility]; Protocol Last Admin: 09/10/23 12:00 Dose: 5 unit Documented By: VALE Isosorbide Mononitrate (Isosorbide Mononitrate 60 Mg Tab.Er.24h) 60 mg PO DAILY [facility]; Protocol Last Admin: 09/10/23 08:08 Dose: 60 mg Documented By: VALE Magnesium Hydroxide (Milk Of Magnesia 30 Ml Oral.Susp) 30 ml PO DAILY PRN PRN Reason: Constipation Melatonin (Melatonin 3 Mg Tablet) 6 mg PO BEDTIME PRN PRN Reason: Insomnia Metoprolol Tartrate (Metoprolol Tartrate 50 Mg Tablet) 50 mg PO BID [facility]; Protocol Last Admin: 09/10/23 08:09 Dose: 50 mg Documented By: VALE Omeprazole (Omeprazole 40 Mg Capsule.Dr) 40 mg PO BID@0630,1630 [facility] Last Admin: 09/10/23 06:00 Dose: 40 mg Documented By: TOM Ondansetron HCl (Ondansetron Hcl 4 Mg/2 Ml Vial) 4 mg IVPUSH Q8H PRN PRN Reason: Nausea and Vomiting Sodium Chloride (0.9 % Sodium Chloride Flush 3 Ml Syringe) 3 ml IVFLUSH QSHIFT [facility] Last Admin: 09/10/23 08:09 Dose: 3 ml Documented By: VALE Tramadol HCl (Tramadol Hcl 50 Mg Tablet) 50 mg PO Q6H PRN PRN Reason: Pain, Severe (Pain Scale 7-10) Last Admin: 09/10/23 06:00 Dose: 50 mg Documented By: TOM Trazodone HCl (Trazodone Hcl 100 Mg Tablet) 100 mg PO BEDTIME [facility] Last Admin: 09/09/23 20:44 Dose: 100 mg Documented By: TOM Valsartan (Valsartan 80 Mg Tablet) 80 mg PO DAILY [facility] Last Admin: 09/10/23 08:08 Dose: 80 mg Documented By: VALE Labs 09/09/23 06:20 09/10/23 06:01 Labs: Laboratory Results - last 24 hr 09/09/23 09/09/23 09/09/23 13:23 16:09 20:34 Hold Purple Top Anion Gap Estim Creat Clear Calc Estimated GFR POC Glucose 250 H 245 H Random Glucose Calcium Stl C. cayetanensis PCR Not Detected Stool Rotavirus A PCR Not Detected Stl Adenov F 40/41 PCR Not Detected Stool Astrovirus (PCR) Not Detected Stool Campylobacter PCR Not Detected Stool Cryptosporidium PCR Not Detected Stl Sh Tox Pr E STEC PCR Not Detected Stool E coli O157 PCR Not applicable Stl Enterotoxigenic E PCR Not Detected Stool EPEC (PCR) Detected A Stool EAEC (PCR) Detected A Stl E. histolytica PCR Not Detected Stool Giardia Lamblia PCR Not Detected Stl P. shigelloides PCR Not Detected Stool Salmonella PCR Not Detected Stool Sapovirus (PCR) Not Detected Stl Shigella/EIEC PCR Not Detected St Y.enterocolitica PCR Not Detected Stool Vibrio (PCR) Not Detected Stl Vibrio cholerae PCR Not Detected Stl Norovirus GI/GII PCR Not Detected C. difficile Tox B Gene NEGATIVE 09/10/23 09/10/23 09/10/23 06:01 07:11 11:31 Hold Purple Top SEE NOTE Anion Gap 16 Estim Creat Clear Calc 64.6 Estimated GFR > 60 POC Glucose 255 H 193 H Random Glucose 265 H Calcium 9.2 Stl C. cayetanensis PCR Stool Rotavirus A PCR Stl Adenov F 40/41 PCR Stool Astrovirus (PCR) Stool Campylobacter PCR Stool Cryptosporidium PCR Stl Sh Tox Pr E STEC PCR Stool E coli O157 PCR Stl Enterotoxigenic E PCR Stool EPEC (PCR) Stool EAEC (PCR) Stl E. histolytica PCR Stool Giardia Lamblia PCR Stl P. shigelloides PCR Stool Salmonella PCR Stool Sapovirus (PCR) Stl Shigella/EIEC PCR St Y.enterocolitica PCR Stool Vibrio (PCR) Stl Vibrio cholerae PCR Stl Norovirus GI/GII PCR C. difficile Tox B Gene Microbiology Microbiology Results: Microbiology 09/08/23 18:11 - Preliminary Blood - Venous Gram negative sharonda 09/08/23 18:11 Blood Culture - Preliminary Blood - Venous Gram negative sharonda 09/08/23 Unknown Urine Culture - Final Urine clean catch - Clean Catch Midstream Escherichia coli Assessment and Plan (1) Gram-negative bacteremia: Status: Acute (2) WILLIAM (acute kidney injury): Status: Acute (3) Type 2 diabetes mellitus with unspecified complications: Status: Acute Plan 73yo M with CAD s/p CABG, DM2, HTN, BPH, DEANDRE on CPAP presenting with dysuria and malaise, found to have sepsis due to UTI/bacteremia 1.Sepsis due to UTI/bacteremia -sepsis resolved -blood and urine cultures both positive E coli sensitive to ceftriaxone -ceftriaxone(3) - Urology consultation 2.WILLIAM, -responded to volume repletion -follow renals/divalents 3. EPEC/EPEC and stool -supportive therapies 4.HTN - acceptable control on current therapies -adjust as indicated 4.CAD -stable and well compensated 5. DM II -acceptable control on current therapies -lispro correctional scale -adjust as indicated Lovenox Full code In my clinical judgment, the patient requires continued inpatient hospitalization for the following reasons: IV ABX, bacteremia Quality Stroke Does the patient have a stroke diagnosis?: No VTE Prior VTE?: No VTE Risk Level:: Medical - moderate - high VTE Device Contraindication: Treatment Not Indicated VTE Drug Contraindication: N/A - Med Ordered
[2023-09-10 15:45] LABS: Glucose, Whole Blood 208 mg/dL (60-115)
[2023-09-10 16:00] VITALS: BP 113/49; PULSE 93; RESP 20; TEMP 36.7; O2SAT 95
[2023-09-10] MEDS: Phenazopyridine HCL 100 MG TABLET PO (16:37)
[2023-09-10] MEDS: cefTRIAXone sodium 2 GM in 0.9 % Sodium Chloride 50 ML IV (16:43)
[2023-09-10 19:46] VITALS: BP 134/60; PULSE 95; RESP 16; TEMP 36.8; O2SAT 92
[2023-09-10 20:13] LABS: Glucose, Whole Blood 208 mg/dL (60-115)
[2023-09-10 21:50] VITALS: BP 184/73; PULSE 108; RESP 20; TEMP 37.1; O2SAT 94
[2023-09-10] MEDS: Melatonin 3 MG TABLET 6 MG PO (22:07)
[2023-09-10] MEDS: Acetaminophen 325 MG TABLET 650 MG PO (22:07)
[2023-09-10] MEDS: Doxazosin Mesylate 2 MG TABLET 4 MG PO (22:07)
[2023-09-10] MEDS: Enoxaparin Sodium 30 MG/0.3 ML SYRINGE SUBCUT (22:08)
[2023-09-10] MEDS: traZODone HCL 100 MG TABLET PO (22:08)
[2023-09-10] MEDS: Insulin Glargine,Hum.rec.anlog 100 UNIT/ML 10 ML VIAL 60 UNIT SUBCUT (22:09)
[2023-09-11 00:14] VITALS: RESP 20
--- NOTE | 2023-09-11 00:21 | P.CNID_ITS ---
History of Present Illness Data of Consult Service Date: 09/10/23 Requesting physician: Mao English Primary Care Provider: Darius Gonzales MD [facility] Reason for consult: urinary sepsis He has had frequent urination and fatigue last two days. He has leg discomfort right as well. He has WBC of 17.8 and tachycardia to 106. CT scan abdomen and pelvis shows prostatomegaly. He has E coli blood 7/30 x2 and in urine. Review of Systems 2 Review of Systems: Yes all other systems are reviewed and are negative [facility] Past Medical History Medical History Osteoarthritis of knees, bilateral Type 2 diabetes mellitus with unspecified complications Sepsis Hyperthyroidism Multinodular thyroid HLD (hyperlipidemia) HTN (hypertension) Obesity NSTEMI (non-ST elevated myocardial infarction) CAD (coronary artery disease) Diabetes mellitus Myocardial infarct Family History Family History Mother Cardiovascular disease Father Medical history unknown Sister Cancer Brother Cancer Family history: reviewed and not pertinent Surgical History Surgical History History of esophagogastroduodenoscopy (EGD) Hx of colonoscopy Hx of ultrasound guided needle biopsy Hx of CABG (~07/2016) Social History Social History Household Members: Family Housing: Apartment Are you a primary youth career specialist to a significant other at home: No Do you presently have visiting nurse or other home services: No Alcohol intake: former Patient Tobacco Use Status: Former Tobacco user Second Hand Smoke Exposure: No service: No Current occupational status: unemployed Meds Allergies Allergy/AdvReac Type Severity Reaction Status Date / Time No Known Allergies Allergy Verified 11/02/23 13:38 [No Known Allergies*] Active Medications: Current Medications Acetaminophen (Acetaminophen 325 Mg Tablet) 650 mg PO Q6H PRN PRN Reason: Pain, Mild (Pain Scale 1-3), fever or headache Last Admin: 09/10/23 22:07 Dose: 650 mg Amlodipine Besylate (Amlodipine Besylate 10 Mg Tablet) 10 mg PO DAILY [facility]; Protocol Last Admin: 09/10/23 08:09 Dose: 10 mg Aspirin (Aspirin Enteric Coated 81 Mg Tablet.Dr) 81 mg PO DAILY [facility] Last Admin: 09/10/23 08:09 Dose: 81 mg Atorvastatin Calcium (Atorvastatin Calcium 80 Mg Tablet) 80 mg PO DAILY [facility] Last Admin: 09/10/23 08:08 Dose: 80 mg Calcium Carbonate (Calcium Carbonate 750 Mg Tab.Chew) 750 mg PO Q4H PRN PRN Reason: Heartburn Cilostazol (Cilostazol 100 Mg Tablet) 100 mg PO BID [facility] Last Admin: 09/10/23 22:08 Dose: 100 mg Doxazosin Mesylate (Doxazosin Mesylate 2 Mg Tablet) 4 mg PO BEDTIME [facility]; Protocol Last Admin: 09/10/23 22:07 Dose: 4 mg Ezetimibe (Ezetimibe 10 Mg Tablet) 10 mg PO DAILY [facility] Last Admin: 09/10/23 08:09 Dose: 10 mg Enoxaparin Sodium (Enoxaparin Sodium 30 Mg/0.3 Ml Syringe) 30 mg SUBCUT Q24H [facility] Last Admin: 09/10/23 22:08 Dose: 30 mg Escitalopram Oxalate (Escitalopram Oxalate 10 Mg Tablet) 10 mg PO DAILY [facility] Last Admin: 09/10/23 08:09 Dose: 10 mg Glucose (Glucose Gel 15 Gm Gel..Gram.) 15 gm PO Q15M PRN; Protocol PRN Reason: per Hypoglycemia Standing Ord. Dextrose (D10) 250 mls @ 750 mls/hr IV Q15M PRN; Protocol PRN Reason: per Hypoglycemia Standing Ord. Ceftriaxone Sodium 2 gm/ (Sodium Chloride) 50 mls @ 100 mls/hr IV Q24H [facility] Last Infusion: 09/10/23 17:16 Dose: Infused Insulin Glargine (Insulin Glargine,Hum.Rec.Anlog 100 Unit/Ml 10 Ml Vial) 60 unit SUBCUT BEDTIME [facility] Last Admin: 09/10/23 22:09 Dose: 60 unit Insulin Human Lispro (Insulin Lispro 100 Unit/Ml 3 Ml Vial) 0 unit SUBCUT QIDACHS [facility]; Protocol Last Admin: 09/10/23 22:09 Dose: 8 unit Isosorbide Mononitrate (Isosorbide Mononitrate 60 Mg Tab.Er.24h) 60 mg PO DAILY [facility]; Protocol Last Admin: 09/10/23 08:08 Dose: 60 mg Magnesium Hydroxide (Milk Of Magnesia 30 Ml Oral.Susp) 30 ml PO DAILY PRN PRN Reason: Constipation Melatonin (Melatonin 3 Mg Tablet) 6 mg PO BEDTIME PRN PRN Reason: Insomnia Last Admin: 09/10/23 22:07 Dose: 6 mg Metoprolol Tartrate (Metoprolol Tartrate 50 Mg Tablet) 50 mg PO BID [facility]; Protocol Last Admin: 09/10/23 22:08 Dose: 50 mg Omeprazole (Omeprazole 40 Mg Capsule.Dr) 40 mg PO BID@0630,1630 [facility] Last Admin: 09/10/23 16:37 Dose: 40 mg Ondansetron HCl (Ondansetron Hcl 4 Mg/2 Ml Vial) 4 mg IVPUSH Q8H PRN PRN Reason: Nausea and Vomiting Phenazopyridine HCl (Phenazopyridine Hcl 100 Mg Tablet) 100 mg PO BIDWM [facility] Stop: 09/12/23 08:01 Last Admin: 09/10/23 16:37 Dose: 100 mg Sodium Chloride (0.9 % Sodium Chloride Flush 3 Ml Syringe) 3 ml IVFLUSH QSHIFT [facility] Last Admin: 09/10/23 22:10 Dose: 3 ml Tramadol HCl (Tramadol Hcl 50 Mg Tablet) 50 mg PO Q6H PRN PRN Reason: Pain, Severe (Pain Scale 7-10) Last Admin: 09/10/23 22:08 Dose: 50 mg Trazodone HCl (Trazodone Hcl 100 Mg Tablet) 100 mg PO BEDTIME [facility] Last Admin: 09/10/23 22:08 Dose: 100 mg Valsartan (Valsartan 80 Mg Tablet) 80 mg PO DAILY [facility] Last Admin: 09/10/23 08:08 Dose: 80 mg Home Medications ?Medication ?Instructions ?Recorded ?Confirmed ?Last Taken ?Type escitalopram oxalate 10 mg tablet 10 mg PO DAILY 02/07/20 12/10/23 11/01/23 09:00 History metformin 1,000 mg tablet 1,000 mg PO DAILY 02/07/20 12/10/23 11/01/23 09:00 History insulin glargine 100 unit/mL (3 88 unit subcut DAILY 10/30/21 12/10/23 11/01/23 09:00 History mL) subcutaneous pen (Lantus Solostar U-100 Insulin) trazodone 100 mg tablet 100 mg PO BEDTIME 02/23/23 12/10/23 Unknown History amlodipine 10 mg tablet 10 mg PO DAILY 09/08/23 12/10/23 11/01/23 09:00 History aspirin 81 mg tablet,delayed 81 mg PO DAILY 09/08/23 12/10/23 11/01/23 09:00 History release ezetimibe 10 mg tablet 10 mg PO DAILY 09/08/23 12/10/23 11/01/23 09:00 History insulin lispro 100 unit/mL 16 unit subcut TIDAC 09/08/23 12/10/23 11/01/23 09:00 History subcutaneous pen (Humalog KwikPen (U-100) Insulin) isosorbide mononitrate 60 mg 60 mg PO DAILY 09/08/23 12/10/23 11/01/23 09:00 History tablet,extended release 24 hr rosuvastatin 20 mg tablet 20 mg PO DAILY 09/08/23 12/10/23 11/01/23 09:00 History dulaglutide 4.5 mg/0.5 mL 4.5 mg subcut FR 10/11/23 12/10/23 12/04/23 History subcutaneous pen injector (Trulicity) melatonin 3 mg tablet 3 mg PO BEDTIME PRN Sleep 10/11/23 12/10/23 Unknown History phenazopyridine 100 mg tablet 100 mg PO BID PRN urinary pain 11/01/23 12/10/23 Unknown History (Pyridium) Physical Exam 2 Vital Signs: Vital Signs: Last Vital Signs Temp 98.8 F 09/10/23 21:50 Pulse 108 H 09/10/23 21:50 Resp 20 09/11/23 00:14 BP 184/73 H 09/10/23 21:50 Pulse Ox 94 09/10/23 21:50 O2 Del Method Room Air 09/10/23 21:50 BMI result Body Mass Index 33.5 : Other: pain right flank area penis/testicle exam previously done,reported unremarkable Results Labs 09/15/23 05:28 09/15/23 05:28 Labs: BMP 09/10/23 06:01 Sodium 131 L Potassium 3.3 Chloride 100 Carbon Dioxide 18 L BUN 21 H Creatinine 1.06 Calcium 9.2 Microbiology Microbiology Results: Microbiology 09/08/23 18:11 Blood - Venous - Preliminary Gram negative sharonda 09/08/23 18:11 Blood - Venous Blood Culture - Preliminary Gram negative sharonda 09/08/23 Unknown Urine clean catch - Clean Catch Midstream Urine Culture - Final Escherichia coli Assessment and Plan (1) Bladder outlet obstruction: Status: Resolved (2) Gram-negative bacteremia: Status: Resolved (3) Flank pain: Status: Resolved (4) Sepsis: Status: Resolved Plan He has urinary tract sepsis He has E coli in blood and urine. He has tachycardia and leukocytosis making sepsis definition. He has obstruction due to bladder obstruction possible. There is concern over prostatomegaly. Suggest IV Ceftriaxone 2 daily. When WBC periphery is 14 or less then po [id number] mg bid total 14 -28d depending on degree of prostatomegaly. Follow Urology for decrease bladder outlet obstruction.
[2023-09-11 02:39] LABS: Glucose, Whole Blood 231 mg/dL (60-115)
[2023-09-11 03:27] VITALS: BP 126/48; PULSE 81; RESP 20; TEMP 36.8; O2SAT 95
[2023-09-11 03:50] VITALS: BP 110/54; PULSE 83; RESP 16; TEMP 37.2; O2SAT 93
[2023-09-11 07:21] VITALS: BP 131/60; PULSE 71; RESP 18; TEMP 36.5; O2SAT 94
[2023-09-11 07:36] LABS: Glucose, Whole Blood 230 mg/dL (60-115)
[2023-09-11] MEDS: Insulin Lispro 100 UNIT/ML 3 ML VIAL SUBCUT ×4 (08:24→21:33)
[2023-09-11] MEDS: Isosorbide Mononitrate 60 MG TAB.ER.24H PO (08:25)
[2023-09-11] MEDS: Phenazopyridine HCL 100 MG TABLET PO ×2 (08:25→16:19)
[2023-09-11] MEDS: Valsartan 80 MG TABLET PO (08:25)
[2023-09-11] MEDS: Ezetimibe 10 MG TABLET PO (08:26)
[2023-09-11] MEDS: Aspirin Enteric Coated 81 MG TABLET.DR PO (08:26)
[2023-09-11] MEDS: Atorvastatin Calcium 80 MG TABLET PO (08:26)
[2023-09-11] MEDS: Omeprazole 40 MG CAPSULE.DR PO ×2 (08:26→16:19)
[2023-09-11] MEDS: Escitalopram Oxalate 10 MG TABLET PO (08:26)
[2023-09-11] MEDS: cilostazoL 100 MG TABLET PO ×2 (08:26→21:49)
[2023-09-11] MEDS: Metoprolol Tartrate 50 MG TABLET PO ×2 (08:26→21:31)
[2023-09-11] MEDS: 0.9 % Sodium Chloride Flush 3 ML SYRINGE IVFLUSH ×2 (08:26→16:19)
[2023-09-11] MEDS: amLODIPine Besylate 10 MG TABLET PO (08:26)
[2023-09-11] MEDS: traMADoL HCL 50 MG TABLET PO (08:33)
--- NOTE | 2023-09-11 12:01 | MHC.CM.PN ---
ID is recommending IV ABT and Patient is not yet medically cleared for dc. Home is the goal and CM will continue to follow for dc planning.
[2023-09-11 12:26] LABS: Glucose, Whole Blood 275 mg/dL (60-115)
[2023-09-11] MEDS: oxyCODONE HCl Immed Release 5 MG TABLET PO ×2 (12:26→16:20)
--- NOTE | 2023-09-11 14:49 | HO.PM.IMPN ---
Subjective Subjective Date of Service: 09/11/23 Interval History: No acute issues overnight Review of Systems Denies chest pain Denies shortness of breath Denies nausea vomiting diarrhea Denies fever chills Physical Exam Vital Signs: Vital Signs: Last Vital Signs Temp 97.7 F 09/11/23 07:21 Pulse 71 09/11/23 07:21 Resp 18 09/11/23 07:21 BP 131/60 09/11/23 07:21 Pulse Ox 94 09/11/23 07:21 O2 Del Method Room Air 09/11/23 07:21 BMI result Body Mass Index 33.5 Const: Other: Awake alert no acute distress Resp: Other: Clear to auscultation bilaterally no rales rhonchi or wheezes Cardio: Other: No S4; positive S1-S2; no S3 murmurs rubs or gallops GI: Other: Soft nontender nondistended normoactive bowel sounds Extrem: Other: No edema bilaterally Objective Data Active Medications Acetaminophen (Acetaminophen 325 Mg Tablet) 650 mg PO Q6H PRN PRN Reason: Pain, Mild (Pain Scale 1-3), fever or headache Last Admin: 09/10/23 22:07 Dose: 650 mg Documented By: TOM Amlodipine Besylate (Amlodipine Besylate 10 Mg Tablet) 10 mg PO DAILY [facility]; Protocol Last Admin: 09/11/23 08:26 Dose: 10 mg Documented By: JOY Aspirin (Aspirin Enteric Coated 81 Mg Tablet.) 81 mg PO DAILY [facility] Last Admin: 09/11/23 08:26 Dose: 81 mg Documented By: JOY Atorvastatin Calcium (Atorvastatin Calcium 80 Mg Tablet) 80 mg PO DAILY [facility] Last Admin: 09/11/23 08:26 Dose: 80 mg Documented By: JOY Calcium Carbonate (Calcium Carbonate 750 Mg Tab.Chew) 750 mg PO Q4H PRN PRN Reason: Heartburn Cilostazol (Cilostazol 100 Mg Tablet) 100 mg PO BID [facility] Last Admin: 09/11/23 08:26 Dose: 100 mg Documented By: JOY Doxazosin Mesylate (Doxazosin Mesylate 2 Mg Tablet) 4 mg PO BEDTIME [facility]; Protocol Last Admin: 09/10/23 22:07 Dose: 4 mg Documented By: TOM Ezetimibe (Ezetimibe 10 Mg Tablet) 10 mg PO DAILY [facility] Last Admin: 09/11/23 08:26 Dose: 10 mg Documented By: JOY Enoxaparin Sodium (Enoxaparin Sodium 40 Mg/0.4 Ml Syringe) 40 mg SUBCUT Q24H [facility] Escitalopram Oxalate (Escitalopram Oxalate 10 Mg Tablet) 10 mg PO DAILY [facility] Last Admin: 09/11/23 08:26 Dose: 10 mg Documented By: JOY Glucose (Glucose Gel 15 Gm Gel..Gram.) 15 gm PO Q15M PRN; Protocol PRN Reason: per Hypoglycemia Standing Ord. Dextrose (D10) 250 mls @ 750 mls/hr IV Q15M PRN; Protocol PRN Reason: per Hypoglycemia Standing Ord. Ceftriaxone Sodium 1 gm/ (Sodium Chloride) 50 mls @ 100 mls/hr IV Q24H [facility] Insulin Glargine (Insulin Glargine,Hum.Rec.Anlog 100 Unit/Ml 10 Ml Vial) 60 unit SUBCUT BEDTIME [facility] Last Admin: 09/10/23 22:09 Dose: 60 unit Documented By: TOM Insulin Human Lispro (Insulin Lispro 100 Unit/Ml 3 Ml Vial) 0 unit SUBCUT QIDACHS [facility]; Protocol Last Admin: 09/11/23 12:26 Dose: 12 unit Documented By: JOY Isosorbide Mononitrate (Isosorbide Mononitrate 60 Mg Tab.Er.24h) 60 mg PO DAILY [facility]; Protocol Last Admin: 09/11/23 08:25 Dose: 60 mg Documented By: JOY Magnesium Hydroxide (Milk Of Magnesia 30 Ml Oral.Susp) 30 ml PO DAILY PRN PRN Reason: Constipation Melatonin (Melatonin 3 Mg Tablet) 6 mg PO BEDTIME PRN PRN Reason: Insomnia Last Admin: 09/10/23 22:07 Dose: 6 mg Documented By: TOM Comments: requested for Insomnia Metoprolol Tartrate (Metoprolol Tartrate 50 Mg Tablet) 50 mg PO BID [facility]; Protocol Last Admin: 09/11/23 08:26 Dose: 50 mg Documented By: JOY Omeprazole (Omeprazole 40 Mg Capsule.Dr) 40 mg PO BID@0630,1630 [facility] Last Admin: 09/11/23 08:26 Dose: 40 mg Documented By: JOY Ondansetron HCl (Ondansetron Hcl 4 Mg/2 Ml Vial) 4 mg IVPUSH Q8H PRN PRN Reason: Nausea and Vomiting Oxycodone HCl (Oxycodone Hcl Immed Release 5 Mg Tablet) 5 mg PO Q4H PRN PRN Reason: Pain, Moderate(Pain Scale 4-6) Last Admin: 09/11/23 12:26 Dose: 5 mg Documented By: JOY Phenazopyridine HCl (Phenazopyridine Hcl 100 Mg Tablet) 100 mg PO BIDWM [facility] Stop: 09/12/23 08:01 Last Admin: 09/11/23 08:25 Dose: 100 mg Documented By: JOY Sodium Chloride (0.9 % Sodium Chloride Flush 3 Ml Syringe) 3 ml IVFLUSH QSHIFT [facility] Last Admin: 09/11/23 08:26 Dose: 3 ml Documented By: JOY Trazodone HCl (Trazodone Hcl 100 Mg Tablet) 100 mg PO BEDTIME [facility] Last Admin: 09/10/23 22:08 Dose: 100 mg Documented By: TOM Valsartan (Valsartan 80 Mg Tablet) 80 mg PO DAILY [facility] Last Admin: 09/11/23 08:25 Dose: 80 mg Documented By: JOY Labs 09/09/23 06:20 09/10/23 06:01 Labs: Laboratory Results - last 24 hr 09/10/23 09/10/23 09/11/23 15:41 19:49 02:35 POC Glucose 208 H 208 H 231 H 09/11/23 09/11/23 07:32 12:21 POC Glucose 230 H 275 H Microbiology Microbiology Results: Microbiology 09/08/23 18:11 - Final Blood - Venous Escherichia coli 09/08/23 18:11 Blood Culture - Final Blood - Venous Escherichia coli Assessment and Plan (1) Sepsis: Status: Acute (2) Gram-negative bacteremia: Status: Acute Plan 73yo M with CAD s/p CABG, DM2, HTN, BPH, DEANDRE on CPAP presenting with dysuria and malaise, found to have sepsis due to UTI/bacteremia 1.Sepsis due to UTI/bacteremia -sepsis resolved -blood and urine cultures both positive E coli sensitive to ceftriaxone -ceftriaxone(4) - Urology consultation 2.WILLIAM, -responded to volume repletion -follow renals/divalents 3. EPEC/EPEC and stool -supportive therapies 4.HTN - acceptable control on current therapies -adjust as indicated 4.CAD -stable and well compensated 5. DM II -acceptable control on current therapies -lispro correctional scale -adjust as indicated Lovenox Full code In my clinical judgment, the patient requires continued inpatient hospitalization for the following reasons: IV ABX, bacteremia Quality Stroke Does the patient have a stroke diagnosis?: No VTE Prior VTE?: No VTE Risk Level:: Medical - moderate - high VTE Device Contraindication: Treatment Not Indicated VTE Drug Contraindication: N/A - Med Ordered
[2023-09-11 15:19] VITALS: BP 106/54; PULSE 93; RESP 18; TEMP 36.6; O2SAT 93
[2023-09-11 15:58] LABS: Glucose, Whole Blood 304 mg/dL (60-115)
[2023-09-11] MEDS: cefTRIAXone sodium 1 GM in 0.9 % Sodium Chloride 50 ML IV (17:12)
[2023-09-11 19:49] VITALS: BP 149/62; PULSE 92; RESP 18; TEMP 37.2; O2SAT 94
[2023-09-11 20:34] LABS: Glucose, Whole Blood 282 mg/dL (60-115)
[2023-09-11] MEDS: Morphine Sulfate Immed Release 15 MG TABLET PO (21:31)
[2023-09-11] MEDS: Enoxaparin Sodium 40 MG/0.4 ML SYRINGE SUBCUT (21:31)
[2023-09-11] MEDS: traZODone HCL 100 MG TABLET PO (21:32)
[2023-09-11] MEDS: Doxazosin Mesylate 2 MG TABLET 4 MG PO (21:32)
[2023-09-11] MEDS: Insulin Glargine,Hum.rec.anlog 100 UNIT/ML 10 ML VIAL 60 UNIT SUBCUT (21:32)
[2023-09-12] MEDS: Melatonin 3 MG TABLET 6 MG PO (00:06)
[2023-09-12 00:11] VITALS: PULSE 91; RESP 18; O2SAT 94
[2023-09-12 03:35] VITALS: BP 138/59; PULSE 86; RESP 20; TEMP 36.2; O2SAT 96
[2023-09-12] MEDS: oxyCODONE HCl Immed Release 5 MG TABLET PO ×3 (06:31→21:42)
[2023-09-12] MEDS: Omeprazole 40 MG CAPSULE.DR PO ×2 (06:31→15:32)
[2023-09-12 07:29] LABS: Glucose, Whole Blood 147 mg/dL (60-115)
[2023-09-12 07:47] VITALS: BP 138/64; PULSE 93; RESP 18; TEMP 37.3; O2SAT 94
[2023-09-12] MEDS: Insulin Lispro 100 UNIT/ML 3 ML VIAL SUBCUT ×4 (08:16→21:42)
[2023-09-12] MEDS: Atorvastatin Calcium 80 MG TABLET PO (08:17)
[2023-09-12] MEDS: Phenazopyridine HCL 100 MG TABLET PO (08:17)
[2023-09-12] MEDS: Valsartan 80 MG TABLET PO (08:17)
[2023-09-12] MEDS: Metoprolol Tartrate 50 MG TABLET PO ×2 (08:17→21:41)
[2023-09-12] MEDS: 0.9 % Sodium Chloride Flush 3 ML SYRINGE IVFLUSH ×2 (08:17→15:32)
[2023-09-12] MEDS: Aspirin Enteric Coated 81 MG TABLET.DR PO (08:17)
[2023-09-12] MEDS: Ezetimibe 10 MG TABLET PO (08:17)
[2023-09-12] MEDS: cilostazoL 100 MG TABLET PO ×2 (08:18→21:41)
[2023-09-12] MEDS: amLODIPine Besylate 10 MG TABLET PO (08:18)
[2023-09-12] MEDS: Isosorbide Mononitrate 60 MG TAB.ER.24H PO (08:24)
[2023-09-12] MEDS: Escitalopram Oxalate 10 MG TABLET PO (08:25)
[2023-09-12 10:31] LABS: Basophils Absolute Auto 0.1 X10*3/uL (0.0-0.2); Basophils Percent Auto 0.6 % (0-2); Eosinophils Absolute Auto 0.1 X10*3/uL (0.0-0.4); Eosinophils Percent Auto 0.7 % (0-4); Hemoglobin 13.1 g/dl (14.0-18.0); Imm Gran Abs Auto 0.37 X10*3/uL (0.00-0.03); Imm Gran Pct Auto 2.4 % (0.0-0.4); Lymphocytes Absolute Auto 1.6 X10*3/uL (1.2-4.9); Lymphocytes Percent Auto 10.3 % (20-40); MANUAL DIFF FLAG SCAN; Mean Corpuscular HGB Conc 35.4 g/dl (31.0-36.0); Mean Corpuscular Hemoglobin 28.2 pg (27.0-33.0); Mean Corpuscular Volume 79.6 fL (80.0-98.0); Mean Platelet Volume 9.5 fL (9.4-12.4); Monocytes Absolute Auto 2.3 X10*3/uL (0.1-1.2); Monocytes Percent Auto 14.8 % (2-11); NRBC Pct Auto 0.1 /100WBC (0.0-0.2); Neutrophils Absolute Auto 10.9 x10*3/uL (2.0-8.3); Neutrophils Percent Auto 71.2 % (45-73); Platelet Count 233 X10*3/uL (160-400); Red Blood Count 4.65 X10*6/uL (4.60-5.80); Red Cell Distribution Width 15.5 % (11.0-16.0); SCAN SMEAR FLAG 1; White Blood Count 15.3 X10*3/uL (4.8-10.8)
[2023-09-12 10:53] LABS: B Type Natriuretic Peptide 34 pg/mL (<100)
[2023-09-12 11:01] LABS: SLIDE REVIEW VERIFIED
--- NOTE | 2023-09-12 11:08 | HO.PM.IMPN ---
Subjective Subjective Date of Service: 09/12/23 Interval History: No acute issues overnight. Still with mild dysuria symptoms Review of Systems Denies chest pain Denies shortness of breath Denies nausea vomiting diarrhea Denies fever chills Physical Exam Vital Signs: Vital Signs: Last Vital Signs Temp 99.1 F 09/12/23 07:47 Pulse 93 09/12/23 07:47 Resp 18 09/12/23 07:47 BP 138/64 09/12/23 07:47 Pulse Ox 94 09/12/23 07:47 O2 Del Method Room Air 09/12/23 07:47 BMI result Body Mass Index 33.5 Const: Other: Awake alert no acute distress Resp: Other: Clear to auscultation bilaterally no rales rhonchi or wheezes Cardio: Other: No S4; positive S1-S2; no S3 murmurs rubs or gallops GI: Other: Soft nontender nondistended normoactive bowel sounds Extrem: Other: No edema bilaterally Objective Data Active Medications Acetaminophen (Acetaminophen 325 Mg Tablet) 650 mg PO Q6H PRN PRN Reason: Pain, Mild (Pain Scale 1-3), fever or headache Last Admin: 09/10/23 22:07 Dose: 650 mg Documented By: TOM Amlodipine Besylate (Amlodipine Besylate 10 Mg Tablet) 10 mg PO DAILY [facility]; Protocol Last Admin: 09/12/23 08:18 Dose: 10 mg Documented By: AMANDO Aspirin (Aspirin Enteric Coated 81 Mg Tablet.) 81 mg PO DAILY [facility] Last Admin: 09/12/23 08:17 Dose: 81 mg Documented By: AMANDO Atorvastatin Calcium (Atorvastatin Calcium 80 Mg Tablet) 80 mg PO DAILY [facility] Last Admin: 09/12/23 08:17 Dose: 80 mg Documented By: AMANDO Calcium Carbonate (Calcium Carbonate 750 Mg Tab.Chew) 750 mg PO Q4H PRN PRN Reason: Heartburn Cilostazol (Cilostazol 100 Mg Tablet) 100 mg PO BID [facility] Last Admin: 09/12/23 08:18 Dose: 100 mg Documented By: AMANDO Doxazosin Mesylate (Doxazosin Mesylate 2 Mg Tablet) 4 mg PO BEDTIME [facility]; Protocol Last Admin: 09/11/23 21:32 Dose: 4 mg Documented By: SOFIYA Ezetimibe (Ezetimibe 10 Mg Tablet) 10 mg PO DAILY [facility] Last Admin: 09/12/23 08:17 Dose: 10 mg Documented By: AMANDO Enoxaparin Sodium (Enoxaparin Sodium 40 Mg/0.4 Ml Syringe) 40 mg SUBCUT Q24H [facility] Last Admin: 09/11/23 21:31 Dose: 40 mg Documented By: SOFIYA Escitalopram Oxalate (Escitalopram Oxalate 10 Mg Tablet) 10 mg PO DAILY [facility] Last Admin: 09/12/23 08:25 Dose: 10 mg Documented By: AMANDO Glucose (Glucose Gel 15 Gm Gel..Gram.) 15 gm PO Q15M PRN; Protocol PRN Reason: per Hypoglycemia Standing Ord. Dextrose (D10) 250 mls @ 750 mls/hr IV Q15M PRN; Protocol PRN Reason: per Hypoglycemia Standing Ord. Ceftriaxone Sodium 1 gm/ (Sodium Chloride) 50 mls @ 100 mls/hr IV Q24H [facility] Last Infusion: 09/11/23 17:57 Dose: Infused Documented By: JOY Insulin Glargine (Insulin Glargine,Hum.Rec.Anlog 100 Unit/Ml 10 Ml Vial) 60 unit SUBCUT BEDTIME [facility] Last Admin: 09/11/23 21:32 Dose: 60 unit Documented By: SOFIYA Insulin Human Lispro (Insulin Lispro 100 Unit/Ml 3 Ml Vial) 0 unit SUBCUT QIDACHS [facility]; Protocol Last Admin: 09/12/23 08:16 Dose: 2 unit Documented By: AMANDO Isosorbide Mononitrate (Isosorbide Mononitrate 60 Mg Tab.Er.24h) 60 mg PO DAILY [facility]; Protocol Last Admin: 09/12/23 08:24 Dose: 60 mg Documented By: AMANDO Magnesium Hydroxide (Milk Of Magnesia 30 Ml Oral.Susp) 30 ml PO DAILY PRN PRN Reason: Constipation Melatonin (Melatonin 3 Mg Tablet) 6 mg PO BEDTIME PRN PRN Reason: Insomnia Last Admin: 09/12/23 00:06 Dose: 6 mg Documented By: SOFIYA Metoprolol Tartrate (Metoprolol Tartrate 50 Mg Tablet) 50 mg PO BID [facility]; Protocol Last Admin: 09/12/23 08:17 Dose: 50 mg Documented By: AMANDO Omeprazole (Omeprazole 40 Mg Capsule.Dr) 40 mg PO BID@0630,1630 [facility] Last Admin: 09/12/23 06:31 Dose: 40 mg Documented By: SOFIYA Ondansetron HCl (Ondansetron Hcl 4 Mg/2 Ml Vial) 4 mg IVPUSH Q8H PRN PRN Reason: Nausea and Vomiting Oxycodone HCl (Oxycodone Hcl Immed Release 5 Mg Tablet) 5 mg PO Q4H PRN PRN Reason: Pain, Moderate(Pain Scale 4-6) Last Admin: 09/12/23 06:31 Dose: 5 mg Documented By: SOFIYA Sodium Chloride (0.9 % Sodium Chloride Flush 3 Ml Syringe) 3 ml IVFLUSH QSHIFT [facility] Last Admin: 09/12/23 08:17 Dose: 3 ml Documented By: AMANDO Trazodone HCl (Trazodone Hcl 100 Mg Tablet) 100 mg PO BEDTIME [facility] Last Admin: 09/11/23 21:32 Dose: 100 mg Documented By: SOFIYA Valsartan (Valsartan 80 Mg Tablet) 80 mg PO DAILY [facility] Last Admin: 09/12/23 08:17 Dose: 80 mg Documented By: AMANDO Labs 09/12/23 10:08 09/10/23 06:01 Labs: Laboratory Results - last 24 hr 09/11/23 09/11/23 09/11/23 12:21 15:54 20:24 MCV MCH MCHC RDW Plt Count MPV Immature Gran % (Auto) Neut % (Auto) Lymph % (Auto) Franklin % (Auto) Eos % (Auto) Baso % (Auto) Lymph # (Auto) [place] # (Auto) Eos # (Auto) Baso # (Auto) Abs Immat Gran (auto) Absolute Neuts (auto) Absolute Nucleated RBC Nucleated RBC % (auto) Smear Tech's Comments POC Glucose 275 H 304 H 282 H B-Natriuretic Peptide 09/12/23 09/12/23 07:24 10:08 MCV 79.6 L MCH 28.2 MCHC 35.4 RDW 15.5 Plt Count 233 D MPV 9.5 Immature Gran % (Auto) 2.4 H Neut % (Auto) 71.2 Lymph % (Auto) 10.3 L Franklin % (Auto) 14.8 H Eos % (Auto) 0.7 Baso % (Auto) 0.6 Lymph # (Auto) 1.6 Franklin # (Auto) 2.3 H Eos # (Auto) 0.1 Baso # (Auto) 0.1 Abs Immat Gran (auto) 0.37 H Absolute Neuts (auto) 10.9 H Absolute Nucleated RBC 0.020 H Nucleated RBC % (auto) 0.1 Smear Tech's Comments VERIFIED POC Glucose 147 H B-Natriuretic Peptide 34 Microbiology Microbiology Results: Microbiology 09/08/23 18:11 - Final Blood - Venous Escherichia coli 09/08/23 18:11 Blood Culture - Final Blood - Venous Escherichia coli Assessment and Plan (1) Sepsis: Status: Acute (2) Gram-negative bacteremia: Status: Acute (3) Acute UTI: Status: Acute Plan 73yo M with CAD s/p CABG, DM2, HTN, BPH, DEANDRE on CPAP presenting with dysuria and malaise, found to have sepsis due to UTI/bacteremia 1.Sepsis due to UTI/bacteremia -sepsis resolved -blood and urine cultures both positive E coli sensitive to ceftriaxone -ceftriaxone(5) -ID recommending IV antibiotics until white count less than 14,000 2.WILLIAM, -responded to volume repletion -follow renals/divalents 3. EPEC/EPEC and stool -supportive therapies 4.HTN - acceptable control on current therapies -adjust as indicated 4.CAD -stable and well compensated 5. DM II -acceptable control on current therapies -lispro correctional scale -adjust as indicated Lovenox Full code In my clinical judgment, the patient requires continued inpatient hospitalization for the following reasons: IV ABX, bacteremia Quality Stroke Does the patient have a stroke diagnosis?: No VTE Prior VTE?: No VTE Risk Level:: Medical - moderate - high VTE Device Contraindication: Treatment Not Indicated VTE Drug Contraindication: N/A - Med Ordered
[2023-09-12 11:12] LABS: Glucose, Whole Blood 217 mg/dL (60-115)
[2023-09-12 15:33] VITALS: BP 148/55; PULSE 94; RESP 23; TEMP 36.9; O2SAT 94
[2023-09-12 15:46] LABS: Glucose, Whole Blood 218 mg/dL (60-115)
[2023-09-12] MEDS: cefTRIAXone sodium 1 GM in 0.9 % Sodium Chloride 50 ML IV (17:30)
[2023-09-12 19:23] VITALS: BP 138/65; PULSE 83; RESP 16; TEMP 36.9; O2SAT 94
[2023-09-12 21:22] LABS: Glucose, Whole Blood 295 mg/dL (60-115)
[2023-09-12] MEDS: Doxazosin Mesylate 2 MG TABLET 4 MG PO (21:41)
[2023-09-12] MEDS: Insulin Glargine,Hum.rec.anlog 100 UNIT/ML 10 ML VIAL 60 UNIT SUBCUT (21:42)
[2023-09-12] MEDS: Enoxaparin Sodium 40 MG/0.4 ML SYRINGE SUBCUT (21:42)
[2023-09-12] MEDS: traZODone HCL 100 MG TABLET PO (21:42)
[2023-09-12 22:52] VITALS: RESP 16
[2023-09-13] MEDS: Melatonin 3 MG TABLET 6 MG PO ×2 (01:13→21:40)
[2023-09-13 03:40] VITALS: BP 125/61; PULSE 88; RESP 20; TEMP 37.1; O2SAT 95
[2023-09-13] MEDS: Omeprazole 40 MG CAPSULE.DR PO ×2 (06:42→17:05)
[2023-09-13 08:00] VITALS: BP 135/64; PULSE 85; RESP 16; TEMP 36.8; O2SAT 93
[2023-09-13 08:11] LABS: Glucose, Whole Blood 103 mg/dL (60-115)
[2023-09-13] MEDS: Atorvastatin Calcium 80 MG TABLET PO (08:36)
[2023-09-13] MEDS: Aspirin Enteric Coated 81 MG TABLET.DR PO (08:36)
[2023-09-13] MEDS: cilostazoL 100 MG TABLET PO ×2 (08:36→21:25)
[2023-09-13] MEDS: amLODIPine Besylate 10 MG TABLET PO (08:36)
[2023-09-13] MEDS: Escitalopram Oxalate 10 MG TABLET PO (08:36)
[2023-09-13] MEDS: Isosorbide Mononitrate 60 MG TAB.ER.24H PO (08:36)
[2023-09-13] MEDS: Valsartan 80 MG TABLET PO (08:36)
[2023-09-13] MEDS: Ezetimibe 10 MG TABLET PO (08:36)
[2023-09-13] MEDS: Metoprolol Tartrate 50 MG TABLET PO ×2 (08:37→21:25)
[2023-09-13] MEDS: 0.9 % Sodium Chloride Flush 3 ML SYRINGE IVFLUSH ×3 (08:37→22:33)
[2023-09-13 09:05] LABS: Hematocrit 38.9 % (42.0-52.0); Hemoglobin 13.9 g/dl (14.0-18.0); Mean Corpuscular HGB Conc 35.7 g/dl (31.0-36.0); Mean Corpuscular Hemoglobin 28.3 pg (27.0-33.0); Mean Corpuscular Volume 79.2 fL (80.0-98.0); NRBC Pct Auto 0.2 /100WBC (0.0-0.2); Platelet Count 307 X10*3/uL (160-400); Red Blood Count 4.91 X10*6/uL (4.60-5.80); Red Cell Distribution Width 15.7 % (11.0-16.0); White Blood Count 17.4 X10*3/uL (4.8-10.8)
[2023-09-13 09:21] LABS: Alanine Aminotransferase 54 U/L (0-40); Albumin Level 3.1 g/dL (3.5-5.0); Alkaline Phosphatase 227 U/L (39-117); Anion Gap 15 (12-20); Aspartate Amino Transferase 56 U/L (5-37); Bilirubin Total 1.1 mg/dL (0.0-1.0); Blood Urea Nitrogen 16 mg/dL (9-16); Calcium 8.6 mg/dL (8.4-10.2); Carbon Dioxide 24 mmol/L (22-29); Chloride 99 mmol/L (96-108); Creatinine Clr Calc Pharmacy 71.4; Estimated Glomerular Filt Rate > 60; Glucose Random 121 mg/dL (60-115); Sodium 135 mmol/L (135-145); Total Protein 7.2 g/dL (6.5-8.0)
[2023-09-13 09:30] LABS: Potassium 2.8 mmol/L (3.3-5.1)
[2023-09-13 09:31] LABS: Atypical Lymph Absolute Manual 1.2 x10*3/uL; Atypical Lymphs Percent Manual 7 % (0-6); Band Neutrophils Percent 11 % (3-5); Lymphocytes Absolute Manual 2.8 X10*3/uL (1.2-4.9); Lymphocytes Percent Manual 16 % (20-40); Monocytes Absolute Manual 1.9 X10*3/uL (0.1-1.2); Monocytes Percent Manual 11 % (2-11); Neutrophils Absolute Manual 11.5 X10*3/uL (2.0-8.3); Neutrophils Percent Manual 55 % (45-73)
[2023-09-13 09:32] LABS: Large Platelet PRESENT; Platelet Estimate NORMAL (NORMAL); Platelet Morphology Comment NOTED; RBC Morphology NOTED
[2023-09-13 09:33] LABS: Polychromasia 1+ (0-2) /OIF; Toxic Vacuolation PRESENT
[2023-09-13] MEDS: Potassium Chloride Packet 20 MEQ PACKET 40 MEQ PO ×2 (10:34→21:26)
[2023-09-13] MEDS: cefTRIAXone sodium 2 GM in 0.9 % Sodium Chloride 50 ML IV (10:42)
[2023-09-13 11:45] LABS: Glucose, Whole Blood 211 mg/dL (60-115)
[2023-09-13] MEDS: Insulin Lispro 100 UNIT/ML 3 ML VIAL SUBCUT ×3 (12:04→21:27)
[2023-09-13] MEDS: oxyCODONE HCl Immed Release 5 MG TABLET PO ×2 (13:10→21:40)
--- NOTE | 2023-09-13 13:19 | HO.PM.IMPN ---
Subjective Subjective Date of Service: 09/13/23 Interval History: Complaining of lower abdominal pain; bladder scan negative. No acute events overnight Review of Systems Denies chest pain Denies shortness of breath Denies nausea vomiting diarrhea Denies fever chills Physical Exam Vital Signs: Vital Signs: Last Vital Signs Temp 98.2 F 09/13/23 08:00 Pulse 85 09/13/23 08:00 Resp 16 09/13/23 08:00 BP 135/64 09/13/23 08:00 Pulse Ox 93 09/13/23 08:00 O2 Del Method Room Air 09/13/23 08:00 BMI result Body Mass Index 33.5 Const: Other: Awake alert no acute distress Resp: Other: Clear to auscultation bilaterally no rales rhonchi or wheezes Cardio: Other: No S4; positive S1-S2; no S3 murmurs rubs or gallops GI: Other: Soft nontender nondistended normoactive bowel sounds Extrem: Other: No edema bilaterally Objective Data Active Medications Acetaminophen (Acetaminophen 325 Mg Tablet) 650 mg PO Q6H PRN PRN Reason: Pain, Mild (Pain Scale 1-3), fever or headache Last Admin: 09/10/23 22:07 Dose: 650 mg Documented By: TOM Amlodipine Besylate (Amlodipine Besylate 10 Mg Tablet) 10 mg PO DAILY [facility]; Protocol Last Admin: 09/13/23 08:36 Dose: 10 mg Documented By: CHELSY Aspirin (Aspirin Enteric Coated 81 Mg Tablet.Dr) 81 mg PO DAILY [facility] Last Admin: 09/13/23 08:36 Dose: 81 mg Documented By: CHELSY Atorvastatin Calcium (Atorvastatin Calcium 80 Mg Tablet) 80 mg PO DAILY [facility] Last Admin: 09/13/23 08:36 Dose: 80 mg Documented By: CHELSY Calcium Carbonate (Calcium Carbonate 750 Mg Tab.Chew) 750 mg PO Q4H PRN PRN Reason: Heartburn Cilostazol (Cilostazol 100 Mg Tablet) 100 mg PO BID [facility] Last Admin: 09/13/23 08:36 Dose: 100 mg Documented By: CHELSY Doxazosin Mesylate (Doxazosin Mesylate 2 Mg Tablet) 4 mg PO BEDTIME [facility]; Protocol Last Admin: 09/12/23 21:41 Dose: 4 mg Documented By: KHRIS Ezetimibe (Ezetimibe 10 Mg Tablet) 10 mg PO DAILY [facility] Last Admin: 09/13/23 08:36 Dose: 10 mg Documented By: CHELSY Enoxaparin Sodium (Enoxaparin Sodium 40 Mg/0.4 Ml Syringe) 40 mg SUBCUT Q24H [facility] Last Admin: 09/12/23 21:42 Dose: 40 mg Documented By: KHRIS Escitalopram Oxalate (Escitalopram Oxalate 10 Mg Tablet) 10 mg PO DAILY [facility] Last Admin: 09/13/23 08:36 Dose: 10 mg Documented By: CHELSY Glucose (Glucose Gel 15 Gm Gel..Gram.) 15 gm PO Q15M PRN; Protocol PRN Reason: per Hypoglycemia Standing Ord. Dextrose (D10) 250 mls @ 750 mls/hr IV Q15M PRN; Protocol PRN Reason: per Hypoglycemia Standing Ord. Ceftriaxone Sodium 2 gm/ (Sodium Chloride) 50 mls @ 100 mls/hr IV Q24H [facility] Last Infusion: 09/13/23 12:05 Dose: Infused Documented By: CHELSY Insulin Glargine (Insulin Glargine,Hum.Rec.Anlog 100 Unit/Ml 10 Ml Vial) 60 unit SUBCUT BEDTIME [facility] Last Admin: 09/12/23 21:42 Dose: 60 unit Documented By: KHRIS Insulin Human Lispro (Insulin Lispro 100 Unit/Ml 3 Ml Vial) 0 unit SUBCUT QIDACHS [facility]; Protocol Last Admin: 09/13/23 12:04 Dose: 8 unit Documented By: CHELSY Isosorbide Mononitrate (Isosorbide Mononitrate 60 Mg Tab.Er.24h) 60 mg PO DAILY [facility]; Protocol Last Admin: 09/13/23 08:36 Dose: 60 mg Documented By: CHELSY Magnesium Hydroxide (Milk Of Magnesia 30 Ml Oral.Susp) 30 ml PO DAILY PRN PRN Reason: Constipation Melatonin (Melatonin 3 Mg Tablet) 6 mg PO BEDTIME PRN PRN Reason: Insomnia Last Admin: 09/13/23 01:13 Dose: 6 mg Documented By: YOAV Metoprolol Tartrate (Metoprolol Tartrate 50 Mg Tablet) 50 mg PO BID [facility]; Protocol Last Admin: 09/13/23 08:37 Dose: 50 mg Documented By: CHELSY Omeprazole (Omeprazole 40 Mg Capsule.) 40 mg PO BID@0630,1630 [facility] Last Admin: 09/13/23 06:42 Dose: 40 mg Documented By: YOAV Ondansetron HCl (Ondansetron Hcl 4 Mg/2 Ml Vial) 4 mg IVPUSH Q8H PRN PRN Reason: Nausea and Vomiting Oxycodone HCl (Oxycodone Hcl Immed Release 5 Mg Tablet) 5 mg PO Q4H PRN PRN Reason: Pain, Moderate(Pain Scale 4-6) Last Admin: 09/13/23 13:10 Dose: 5 mg Documented By: CHELSY Potassium Chloride (Potassium Chloride Packet 20 Meq Packet) 40 meq PO BID [facility] Stop: 09/14/23 09:01 Last Admin: 09/13/23 10:34 Dose: 40 meq Documented By: MILO Sodium Chloride (0.9 % Sodium Chloride Flush 3 Ml Syringe) 3 ml IVFLUSH QSHIFT [facility] Last Admin: 09/13/23 08:37 Dose: 3 ml Documented By: CHELSY Trazodone HCl (Trazodone Hcl 100 Mg Tablet) 100 mg PO BEDTIME [facility] Last Admin: 09/12/23 21:42 Dose: 100 mg Documented By: KHRIS Valsartan (Valsartan 80 Mg Tablet) 80 mg PO DAILY [facility] Last Admin: 09/13/23 08:36 Dose: 80 mg Documented By: CHELSY Labs 09/13/23 08:45 09/13/23 08:45 Labs: Laboratory Results - last 24 hr 09/12/23 09/12/23 09/13/23 15:43 21:07 08:00 MCV MCH MCHC RDW Plt Count MPV Immature Gran % (Auto) Neut % (Auto) Lymph % (Auto) [place] % (Auto) Eos % (Auto) Baso % (Auto) Lymph # (Auto) [place] # (Auto) Eos # (Auto) Baso # (Auto) Abs Immat Gran (auto) Absolute Neuts (auto) Absolute Nucleated RBC Nucleated RBC % (auto) Neutrophils % (Manual) Band Neutrophils % Lymphocytes % (Manual) Atypical Lymphs % (Man) Monocytes % (Manual) Abs Neuts (Manual) Lymphocytes # (Manual) Atyp Lymphs # (Manual) Monocytes # (Manual) Toxic Vacuolation Platelet Estimate Large Platelets Plt Morphology Comment RBC Morphology Polychromasia Anion Gap Estim Creat Clear Calc Estimated GFR POC Glucose 218 H 295 H 103 Random Glucose Calcium Total Bilirubin AST ALT Alkaline Phosphatase Total Protein Albumin 09/13/23 09/13/23 08:45 11:41 MCV 79.2 L MCH 28.3 MCHC 35.7 RDW 15.7 Plt Count 307 D MPV 9.0 L Immature Gran % (Auto) Cancelled Neut % (Auto) Cancelled Lymph % (Auto) Cancelled [place] % (Auto) Cancelled Eos % (Auto) Cancelled Baso % (Auto) Cancelled Lymph # (Auto) Cancelled [place] # (Auto) Cancelled Eos # (Auto) Cancelled Baso # (Auto) Cancelled Abs Immat Gran (auto) Cancelled Absolute Neuts (auto) Cancelled Absolute Nucleated RBC 0.030 H Nucleated RBC % (auto) 0.2 Neutrophils % (Manual) 55 Band Neutrophils % 11 H Lymphocytes % (Manual) 16 L Atypical Lymphs % (Man) 7 H Monocytes % (Manual) 11 Abs Neuts (Manual) 11.5 H Lymphocytes # (Manual) 2.8 Atyp Lymphs # (Manual) 1.2 Monocytes # (Manual) 1.9 H Toxic Vacuolation PRESENT Platelet Estimate NORMAL Large Platelets PRESENT Plt Morphology Comment NOTED RBC Morphology NOTED Polychromasia 1+ (0-2) Anion Gap 15 Estim Creat Clear Calc 71.4 Estimated GFR > 60 POC Glucose 211 H Random Glucose 121 H Calcium 8.6 D Total Bilirubin 1.1 H AST 56 H ALT 54 H Alkaline Phosphatase 227 H Total Protein 7.2 Albumin 3.1 L Assessment and Plan (1) Gram-negative bacteremia: Status: Acute (2) WILLIAM (acute kidney injury): Status: Acute Plan 73yo M with CAD s/p CABG, DM2, HTN, BPH, DEANDRE on CPAP presenting with dysuria and malaise, found to have sepsis due to UTI/bacteremia 1.Sepsis due to UTI/bacteremia -sepsis resolved -blood and urine cultures both positive E coli sensitive to ceftriaxone -ceftriaxone(6) -ID recommending IV antibiotics until white count less than 14,000 2.WILLIAM, -responded to volume repletion -follow renals/divalents 3. EPEC/EPEC and stool -supportive therapies 4.HTN - acceptable control on current therapies -adjust as indicated 4.CAD -stable and well compensated 5. DM II -acceptable control on current therapies -lispro correctional scale -adjust as indicated Lovenox Full code In my clinical judgment, the patient requires continued inpatient hospitalization for the following reasons: IV ABX, bacteremia Quality Stroke Does the patient have a stroke diagnosis?: No VTE Prior VTE?: No VTE Risk Level:: Medical - moderate - high VTE Device Contraindication: Treatment Not Indicated VTE Drug Contraindication: N/A - Med Ordered
[2023-09-13 16:00] VITALS: BP 126/60; PULSE 81; RESP 12; TEMP 36.6; O2SAT 95
[2023-09-13 16:40] LABS: Glucose, Whole Blood 202 mg/dL (60-115)
[2023-09-13 20:00] VITALS: BP 142/66; PULSE 82; RESP 20; TEMP 36.7; O2SAT 92
[2023-09-13 20:09] LABS: Glucose, Whole Blood 229 mg/dL (60-115)
[2023-09-13 21:25] VITALS: BP 142/66; PULSE 82
[2023-09-13] MEDS: traZODone HCL 100 MG TABLET PO (21:25)
[2023-09-13] MEDS: Doxazosin Mesylate 2 MG TABLET 4 MG PO (21:25)
[2023-09-13] MEDS: Insulin Glargine,Hum.rec.anlog 100 UNIT/ML 10 ML VIAL 60 UNIT SUBCUT (21:26)
[2023-09-13] MEDS: Enoxaparin Sodium 40 MG/0.4 ML SYRINGE SUBCUT (21:43)
[2023-09-13 23:50] VITALS: RESP 20
[2023-09-14 03:41] VITALS: BP 121/59; PULSE 80; RESP 18; TEMP 36.6; O2SAT 94
[2023-09-14] MEDS: Omeprazole 40 MG CAPSULE.DR PO ×2 (05:41→16:47)
[2023-09-14 06:27] LABS: Alanine Aminotransferase 49 U/L (0-40); Albumin Level 2.7 g/dL (3.5-5.0); Alkaline Phosphatase 201 U/L (39-117); Anion Gap 13 (12-20); Aspartate Amino Transferase 40 U/L (5-37); Bilirubin Total 0.9 mg/dL (0.0-1.0); Blood Urea Nitrogen 19 mg/dL (9-16); Calcium 8.7 mg/dL (8.4-10.2); Carbon Dioxide 26 mmol/L (22-29); Chloride 100 mmol/L (96-108); Estimated Glomerular Filt Rate > 60; Glucose Fasting 108 mg/dL (60-99); Potassium 3.2 mmol/L (3.3-5.1); Sodium 136 mmol/L (135-145); Total Protein 6.5 g/dL (6.5-8.0)
[2023-09-14 06:59] LABS: Basophils Percent Auto 0.3 % (0-2); Eosinophils Absolute Auto 0.2 X10*3/uL (0.0-0.4); Hemoglobin 12.4 g/dl (14.0-18.0); Imm Gran Pct Auto 2.7 % (0.0-0.4); Lymphocytes Absolute Auto 2.3 X10*3/uL (1.2-4.9); Lymphocytes Percent Auto 15.3 % (20-40); MANUAL DIFF FLAG SCAN; Mean Corpuscular HGB Conc 35.4 g/dl (31.0-36.0); Mean Corpuscular Hemoglobin 28.6 pg (27.0-33.0); Mean Corpuscular Volume 80.6 fL (80.0-98.0); Mean Platelet Volume 8.9 fL (9.4-12.4); Monocytes Percent Auto 13.3 % (2-11); Neutrophils Absolute Auto 9.9 x10*3/uL (2.0-8.3); Neutrophils Percent Auto 67.4 % (45-73); Platelet Count 332 X10*3/uL (160-400); Red Blood Count 4.34 X10*6/uL (4.60-5.80); Red Cell Distribution Width 15.9 % (11.0-16.0); SCAN SMEAR FLAG 1; White Blood Count 14.7 X10*3/uL (4.8-10.8)
[2023-09-14 07:30] LABS: SLIDE REVIEW VERIFIED
[2023-09-14 07:56] VITALS: BP 116/56; PULSE 85; RESP 12; TEMP 36.6; O2SAT 93
[2023-09-14 08:08] LABS: Glucose, Whole Blood 104 mg/dL (60-115)
[2023-09-14] MEDS: Atorvastatin Calcium 80 MG TABLET PO (08:40)
[2023-09-14] MEDS: amLODIPine Besylate 10 MG TABLET PO (08:40)
[2023-09-14] MEDS: Isosorbide Mononitrate 60 MG TAB.ER.24H PO (08:40)
[2023-09-14] MEDS: Ezetimibe 10 MG TABLET PO (08:40)
[2023-09-14] MEDS: Aspirin Enteric Coated 81 MG TABLET.DR PO (08:40)
[2023-09-14] MEDS: cilostazoL 100 MG TABLET PO ×2 (08:40→20:51)
[2023-09-14] MEDS: Valsartan 80 MG TABLET PO (08:40)
[2023-09-14] MEDS: Potassium Chloride Packet 20 MEQ PACKET 40 MEQ PO ×2 (08:40→20:50)
[2023-09-14] MEDS: Escitalopram Oxalate 10 MG TABLET PO (08:41)
[2023-09-14] MEDS: 0.9 % Sodium Chloride Flush 3 ML SYRINGE IVFLUSH ×3 (08:41→20:51)
[2023-09-14] MEDS: Metoprolol Tartrate 50 MG TABLET PO ×2 (08:41→20:51)
[2023-09-14] MEDS: oxyCODONE HCl Immed Release 5 MG TABLET PO ×2 (09:11→13:50)
[2023-09-14] MEDS: cefTRIAXone sodium 2 GM in 0.9 % Sodium Chloride 50 ML IV (09:12)
--- NOTE | 2023-09-14 10:39 | HO.PM.IMPN ---
Subjective Subjective Date of Service: 09/14/23 Interval History: Slowly improving. Pain-free. Complains of constipation Review of Systems Denies chest pain Denies shortness of breath Denies nausea vomiting diarrhea Denies fever chills Physical Exam Vital Signs: Vital Signs: Last Vital Signs Temp 98 F 09/14/23 07:56 Pulse 85 09/14/23 07:56 Resp 12 09/14/23 07:56 BP 116/56 L 09/14/23 07:56 Pulse Ox 93 09/14/23 07:56 O2 Del Method CPAP 09/14/23 07:56 BMI result Body Mass Index 33.5 Const: Other: Awake alert no acute distress Resp: Other: Clear to auscultation bilaterally no rales rhonchi or wheezes Cardio: Other: No S4; positive S1-S2; no S3 murmurs rubs or gallops GI: Other: Soft nontender nondistended normoactive bowel sounds Extrem: Other: No edema bilaterally Objective Data Active Medications Acetaminophen (Acetaminophen 325 Mg Tablet) 650 mg PO Q6H PRN PRN Reason: Pain, Mild (Pain Scale 1-3), fever or headache Last Admin: 09/10/23 22:07 Dose: 650 mg Documented By: TOM Amlodipine Besylate (Amlodipine Besylate 10 Mg Tablet) 10 mg PO DAILY [facility]; Protocol Last Admin: 09/14/23 08:40 Dose: 10 mg Documented By: SHANA Aspirin (Aspirin Enteric Coated 81 Mg Tablet.) 81 mg PO DAILY [facility] Last Admin: 09/14/23 08:40 Dose: 81 mg Documented By: SHANA Atorvastatin Calcium (Atorvastatin Calcium 80 Mg Tablet) 80 mg PO DAILY [facility] Last Admin: 09/14/23 08:40 Dose: 80 mg Documented By: SHANA Calcium Carbonate (Calcium Carbonate 750 Mg Tab.Chew) 750 mg PO Q4H PRN PRN Reason: Heartburn Cilostazol (Cilostazol 100 Mg Tablet) 100 mg PO BID [facility] Last Admin: 09/14/23 08:40 Dose: 100 mg Documented By: SHANA Doxazosin Mesylate (Doxazosin Mesylate 2 Mg Tablet) 4 mg PO BEDTIME [facility]; Protocol Last Admin: 09/13/23 21:25 Dose: 4 mg Documented By: CARO Ezetimibe (Ezetimibe 10 Mg Tablet) 10 mg PO DAILY [facility] Last Admin: 09/14/23 08:40 Dose: 10 mg Documented By: SHANA Enoxaparin Sodium (Enoxaparin Sodium 40 Mg/0.4 Ml Syringe) 40 mg SUBCUT Q24H [facility] Last Admin: 09/13/23 21:43 Dose: 40 mg Documented By: CARO Escitalopram Oxalate (Escitalopram Oxalate 10 Mg Tablet) 10 mg PO DAILY [facility] Last Admin: 09/14/23 08:41 Dose: 10 mg Documented By: SHANA Glucose (Glucose Gel 15 Gm Gel..Gram.) 15 gm PO Q15M PRN; Protocol PRN Reason: per Hypoglycemia Standing Ord. Dextrose (D10) 250 mls @ 750 mls/hr IV Q15M PRN; Protocol PRN Reason: per Hypoglycemia Standing Ord. Ceftriaxone Sodium 2 gm/ (Sodium Chloride) 50 mls @ 100 mls/hr IV Q24H [facility] Last Infusion: 09/14/23 09:51 Dose: Infused Documented By: SHANA Insulin Glargine (Insulin Glargine,Hum.Rec.Anlog 100 Unit/Ml 10 Ml Vial) 60 unit SUBCUT BEDTIME [facility] Last Admin: 09/13/23 21:26 Dose: 60 unit Documented By: CARO Insulin Human Lispro (Insulin Lispro 100 Unit/Ml 3 Ml Vial) 0 unit SUBCUT QIDACHS [facility]; Protocol Last Admin: 09/14/23 08:14 Dose: Not Given Documented By: SHANA Non-Admin Reason: No Insulin Coverage Isosorbide Mononitrate (Isosorbide Mononitrate 60 Mg Tab.Er.24h) 60 mg PO DAILY [facility]; Protocol Last Admin: 09/14/23 08:40 Dose: 60 mg Documented By: SHANA Magnesium Hydroxide (Milk Of Magnesia 30 Ml Oral.Susp) 30 ml PO DAILY PRN PRN Reason: Constipation Melatonin (Melatonin 3 Mg Tablet) 6 mg PO BEDTIME PRN PRN Reason: Insomnia Last Admin: 09/13/23 21:40 Dose: 6 mg Documented By: CARO Metoprolol Tartrate (Metoprolol Tartrate 50 Mg Tablet) 50 mg PO BID [facility]; Protocol Last Admin: 09/14/23 08:41 Dose: 50 mg Documented By: SHANA Omeprazole (Omeprazole 40 Mg Capsule.Dr) 40 mg PO BID@0630,1630 [facility] Last Admin: 09/14/23 05:41 Dose: 40 mg Documented By: CARO Ondansetron HCl (Ondansetron Hcl 4 Mg/2 Ml Vial) 4 mg IVPUSH Q8H PRN PRN Reason: Nausea and Vomiting Oxycodone HCl (Oxycodone Hcl Immed Release 5 Mg Tablet) 5 mg PO Q4H PRN PRN Reason: Pain, Moderate(Pain Scale 4-6) Last Admin: 09/14/23 09:11 Dose: 5 mg Documented By: KHRIS Potassium Chloride (Potassium Chloride Packet 20 Meq Packet) 40 meq PO BID [facility] Stop: 09/14/23 21:01 Last Admin: 09/14/23 08:39 Dose: Not Given Documented By: SHANA Non-Admin Reason: Duplicate Order Sodium Chloride (0.9 % Sodium Chloride Flush 3 Ml Syringe) 3 ml IVFLUSH QSHIFT [facility] Last Admin: 09/14/23 08:41 Dose: 3 ml Documented By: SHANA Trazodone HCl (Trazodone Hcl 100 Mg Tablet) 100 mg PO BEDTIME [facility] Last Admin: 09/13/23 21:25 Dose: 100 mg Documented By: CARO Valsartan (Valsartan 80 Mg Tablet) 80 mg PO DAILY [facility] Last Admin: 09/14/23 08:40 Dose: 80 mg Documented By: SHANA Labs 09/14/23 05:29 09/14/23 05:29 Labs: Laboratory Results - last 24 hr 09/13/23 09/13/23 09/13/23 08:45 11:41 16:32 MCV MCH MCHC RDW Plt Count MPV Immature Gran % (Auto) Neut % (Auto) Lymph % (Auto) [place] % (Auto) Eos % (Auto) Baso % (Auto) Lymph # (Auto) [place] # (Auto) Eos # (Auto) Baso # (Auto) Abs Immat Gran (auto) Absolute Neuts (auto) Absolute Nucleated RBC Nucleated RBC % (auto) Smear Tech's Comments Smear Path Review SEE NOTE Anion Gap Estim Creat Clear Calc Estimated GFR POC Glucose 211 H 202 H Fasting Glucose Calcium Total Bilirubin AST ALT Alkaline Phosphatase Total Protein Albumin 09/13/23 09/14/23 09/14/23 20:04 05:29 07:54 MCV 80.6 MCH 28.6 MCHC 35.4 RDW 15.9 Plt Count 332 MPV 8.9 L Immature Gran % (Auto) 2.7 H Neut % (Auto) 67.4 Lymph % (Auto) 15.3 L [place] % (Auto) 13.3 H Eos % (Auto) 1.0 Baso % (Auto) 0.3 Lymph # (Auto) 2.3 [place] # (Auto) 2.0 H Eos # (Auto) 0.2 Baso # (Auto) 0.0 Abs Immat Gran (auto) 0.40 H Absolute Neuts (auto) 9.9 H Absolute Nucleated RBC 0.000 Nucleated RBC % (auto) 0.0 Smear Tech's Comments VERIFIED Smear Path Review Anion Gap 13 Estim Creat Clear Calc 64.0 Estimated GFR > 60 POC Glucose 229 H 104 Fasting Glucose 108 H Calcium 8.7 Total Bilirubin 0.9 AST 40 H ALT 49 H Alkaline Phosphatase 201 H Total Protein 6.5 Albumin 2.7 L Assessment and Plan (1) Sepsis: Status: Acute (2) Acute UTI: Status: Acute Plan 73yo M with CAD s/p CABG, DM2, HTN, BPH, DEANDRE on CPAP presenting with dysuria and malaise, found to have sepsis due to UTI/bacteremia 1.Sepsis due to UTI/bacteremia -sepsis resolved -blood and urine cultures both positive E coli sensitive to ceftriaxone -ceftriaxone(7) -ID recommending IV antibiotics until white count less than 14,000 2.WILLIAM, -responded to volume repletion -follow renals/divalents 3. EPEC/EPEC and stool -supportive therapies 4.HTN - acceptable control on current therapies -adjust as indicated 4.CAD -stable and well compensated 5. DM II -acceptable control on current therapies -lispro correctional scale -adjust as indicated Lovenox Full code In my clinical judgment, the patient requires continued inpatient hospitalization for the following reasons: IV ABX, bacteremia Quality Stroke Does the patient have a stroke diagnosis?: No VTE Prior VTE?: No VTE Risk Level:: Medical - moderate - high VTE Device Contraindication: Treatment Not Indicated VTE Drug Contraindication: N/A - Med Ordered
[2023-09-14 11:23] LABS: Glucose, Whole Blood 228 mg/dL (60-115)
[2023-09-14] MEDS: Milk of Magnesia 30 ML ORAL.SUSP PO (11:39)
[2023-09-14] MEDS: Insulin Lispro 100 UNIT/ML 3 ML VIAL SUBCUT ×3 (11:39→20:50)
--- NOTE | 2023-09-14 13:37 | MHC.CM.PN ---
Per MD rounds Patient may be ready to discharge tomorrow. Per ID Patient will DC on PO ABX once WBC below 14. DP home with family support and transportation. A PT eval has been ordered and is pending.
[2023-09-14 15:44] VITALS: BP 147/61; PULSE 84; RESP 16; TEMP 37; O2SAT 97
[2023-09-14 16:11] LABS: Glucose, Whole Blood 250 mg/dL (60-115)
[2023-09-14 19:29] VITALS: BP 158/74; PULSE 93; RESP 16; TEMP 37.1; O2SAT 96
[2023-09-14 19:42] LABS: Glucose, Whole Blood 271 mg/dL (60-115)
[2023-09-14] MEDS: Enoxaparin Sodium 40 MG/0.4 ML SYRINGE SUBCUT (20:49)
[2023-09-14] MEDS: Insulin Glargine,Hum.rec.anlog 100 UNIT/ML 10 ML VIAL 60 UNIT SUBCUT (20:50)
[2023-09-14] MEDS: Doxazosin Mesylate 2 MG TABLET 4 MG PO (20:51)
[2023-09-14] MEDS: traZODone HCL 100 MG TABLET PO (20:51)
[2023-09-14] MEDS: Melatonin 3 MG TABLET 6 MG PO (20:51)
[2023-09-15 00:41] VITALS: RESP 16
[2023-09-15 03:18] VITALS: BP 128/56; PULSE 85; RESP 16; TEMP 37.3; O2SAT 95
[2023-09-15] MEDS: Omeprazole 40 MG CAPSULE.DR PO (06:12)
[2023-09-15 06:45] LABS: Hematocrit 35.8 % (42.0-52.0); Hemoglobin 12.7 g/dl (14.0-18.0); Mean Corpuscular HGB Conc 35.5 g/dl (31.0-36.0); Mean Corpuscular Hemoglobin 28.7 pg (27.0-33.0); Mean Platelet Volume 8.5 fL (9.4-12.4); Platelet Count 412 X10*3/uL (160-400); Red Blood Count 4.42 X10*6/uL (4.60-5.80); Red Cell Distribution Width 16.3 % (11.0-16.0); White Blood Count 14.9 X10*3/uL (4.8-10.8)
[2023-09-15 06:47] LABS: Alanine Aminotransferase 48 U/L (0-40); Albumin Level 2.8 g/dL (3.5-5.0); Alkaline Phosphatase 191 U/L (39-117); Anion Gap 13 (12-20); Aspartate Amino Transferase 38 U/L (5-37); Bilirubin Total 0.7 mg/dL (0.0-1.0); Blood Urea Nitrogen 17 mg/dL (9-16); Calcium 8.5 mg/dL (8.4-10.2); Carbon Dioxide 28 mmol/L (22-29); Chloride 101 mmol/L (96-108); Creatinine Clr Calc Pharmacy 67.8; Estimated Glomerular Filt Rate > 60; Glucose Fasting 64 mg/dL (60-99); Potassium 3.5 mmol/L (3.3-5.1); Sodium 138 mmol/L (135-145); Total Protein 6.9 g/dL (6.5-8.0)
[2023-09-15 07:17] LABS: Atypical Lymph Absolute Manual 0.3 x10*3/uL; Atypical Lymphs Percent Manual 2 % (0-6); Band Neutrophils Percent 1 % (3-5); Eosinophils Absolute Manual 0.3 X10*3/uL (0.0-0.4); Eosinophils Percent Manual 2 % (0-4); Lymphocytes Percent Manual 20 % (20-40); Metamyelocytes Absolute 0.1 X10*3/uL; Metamyelocytes Percent 1 %; Monocytes Absolute Manual 0.7 X10*3/uL (0.1-1.2); Monocytes Percent Manual 5 % (2-11); Neutrophils Absolute Manual 10.4 X10*3/uL (2.0-8.3); Neutrophils Percent Manual 69 % (45-73)
[2023-09-15 07:18] LABS: RBC Morphology NORMAL
[2023-09-15 07:19] LABS: Platelet Estimate NORMAL (NORMAL); Platelet Morphology Comment NORMAL
[2023-09-15 07:36] VITALS: BP 159/72; PULSE 89; RESP 18; TEMP 36.4; O2SAT 97
[2023-09-15 07:42] LABS: Glucose, Whole Blood 125 mg/dL (60-115)
[2023-09-15] MEDS: Escitalopram Oxalate 10 MG TABLET PO (08:09)
[2023-09-15] MEDS: Ezetimibe 10 MG TABLET PO (08:09)
[2023-09-15] MEDS: Insulin Lispro 100 UNIT/ML 3 ML VIAL SUBCUT ×2 (08:09→11:49)
[2023-09-15] MEDS: cilostazoL 100 MG TABLET PO (08:10)
[2023-09-15] MEDS: Isosorbide Mononitrate 60 MG TAB.ER.24H PO (08:10)
[2023-09-15] MEDS: amLODIPine Besylate 10 MG TABLET PO (08:10)
[2023-09-15] MEDS: 0.9 % Sodium Chloride Flush 3 ML SYRINGE IVFLUSH (08:10)
[2023-09-15] MEDS: Valsartan 80 MG TABLET PO (08:10)
[2023-09-15] MEDS: Aspirin Enteric Coated 81 MG TABLET.DR PO (08:10)
[2023-09-15] MEDS: Metoprolol Tartrate 50 MG TABLET PO (08:10)
[2023-09-15] MEDS: Atorvastatin Calcium 80 MG TABLET PO (08:10)
[2023-09-15] MEDS: cefTRIAXone sodium 2 GM in 0.9 % Sodium Chloride 50 ML IV (10:24)
[2023-09-15 11:05] LABS: Glucose, Whole Blood 213 mg/dL (60-115)
--- NOTE | 2023-09-15 13:13 | PM.DS ---
DS: Providers Provider Date of Service: 09/15/23 Date of admission: 09/08/23 20:54 Date of discharge: 09/15/23 Primary care physician: Darius Gonzales MD Consults: 09/09/23 10:36 Consult to Urology Routine Consulting Provider: [facility] Reason for consultation: ?prostatitis 09/10/23 12:01 Consult to Infectious Diseases Routine Consulting Provider: [facility] Reason for consultation: E coli bacteremia Has provider been notified: Yes DS: Diagnosis Discharge Diagnosis (1) Sepsis: Status: Acute (2) Acute UTI: Status: Acute DS: Summary Hospital Course Hospital Course: 73-year-old male with pertinent history of CAD status post CABG, insulin-dependent diabetes mellitus, hypertension, mood disorder, BPH, DEANDRE on CPAP, gastroesophageal reflux disease who presents to the emergency department for evaluation of feeling unwell and dysuria. Patient states his symptoms have been ongoing for a while for about 1-2 months. He has been having urinary incontinence with dysuria and change in odor and color of urine. Also has urinary hesitancy. Patient states he is also having loose stools for the last couple of months. Admits fevers and chills. Patient also reports he has been having right knee pain which is worse with ambulation. He does have right knee osteoarthritis. Patient states he is noncompliant with his medications and has missed few doses of his insulin. Admits poor p.o. intake, generalized fatigability, weakness. No shortness a breath, chest pain, palpitations. 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 Also blood glucose found to be in the 500s Hospital course Patient was admitted to general medical floor and started on ceftriaxone. He was seen in consultation by ID who recommended continuing ceftriaxone and switch to oral Ceftin when appropriate. He was seen in consultation by Urology who will follow up in the office. On the day of discharge, patient is requesting to be discharged home as he is feeling much better. He will be discharged to complete a course of oral Ceftin and be given a small amount of oxycodone for his pain. He is medically acceptable for discharge at this time Time Attestation Discharge Coordination Time (in mins): 35 Quality: Safe Use of Opioids Does Pt have an Active Cancer Diagnosis on the Problem List?: No Quality: Stroke Does the patient have a stroke diagnosis?: No Physical Exam Vital Signs: Vital Signs: Last Vital Signs Temp 97.6 F 09/15/23 07:36 Pulse 89 09/15/23 07:36 Resp 18 09/15/23 07:36 BP 159/72 H 09/15/23 07:36 Pulse Ox 97 09/15/23 07:36 O2 Del Method Room Air 09/15/23 07:36 BMI result Body Mass Index 33.5 Const: Other: Awake alert no acute distress Resp: Other: Clear to auscultation bilaterally no rales rhonchi or wheezes Cardio: Other: No S4; positive S1-S2; no S3 murmurs rubs or gallops GI: Other: Soft nontender nondistended normoactive bowel sounds Extrem: Other: No edema bilaterally DS: Data Data Completed and Pending Labs on day of discharge: Laboratory Results - last 24 hr 09/14/23 09/14/23 09/15/23 16:05 19:30 05:28 WBC 14.9 H RBC 4.42 L Hgb 12.7 L Hct 35.8 L MCV 81.0 MCH 28.7 MCHC 35.5 RDW 16.3 H Plt Count 412 H MPV 8.5 L Immature Gran % (Auto) Cancelled Neut % (Auto) Cancelled Lymph % (Auto) Cancelled [place] % (Auto) Cancelled Eos % (Auto) Cancelled Baso % (Auto) Cancelled Lymph # (Auto) Cancelled [place] # (Auto) Cancelled Eos # (Auto) Cancelled Baso # (Auto) Cancelled Abs Immat Gran (auto) Cancelled Absolute Neuts (auto) Cancelled Absolute Nucleated RBC 0.000 Nucleated RBC % (auto) 0.0 Neutrophils % (Manual) 69 Band Neutrophils % 1 L Lymphocytes % (Manual) 20 Atypical Lymphs % (Man) 2 Monocytes % (Manual) 5 Eosinophils % (Manual) 2 Metamyelocytes % 1 Abs Neuts (Manual) 10.4 H Lymphocytes # (Manual) 3.0 Atyp Lymphs # (Manual) 0.3 Monocytes # (Manual) 0.7 Eosinophils # (Manual) 0.3 Metamyelocytes # 0.1 Platelet Estimate NORMAL Plt Morphology Comment NORMAL RBC Morphology NORMAL Sodium 138 Potassium 3.5 Chloride 101 Carbon Dioxide 28 Anion Gap 13 BUN 17 H Creatinine 1.01 Estim Creat Clear Calc 67.8 Estimated GFR > 60 POC Glucose 250 H 271 H Fasting Glucose 64 Calcium 8.5 Total Bilirubin 0.7 AST 38 H ALT 48 H Alkaline Phosphatase 191 H Total Protein 6.9 Albumin 2.8 L 09/15/23 09/15/23 07:35 11:01 WBC RBC Hgb Hct MCV MCH MCHC RDW Plt Count MPV Immature Gran % (Auto) Neut % (Auto) Lymph % (Auto) [place] % (Auto) Eos % (Auto) Baso % (Auto) Lymph # (Auto) [place] # (Auto) Eos # (Auto) Baso # (Auto) Abs Immat Gran (auto) Absolute Neuts (auto) Absolute Nucleated RBC Nucleated RBC % (auto) Neutrophils % (Manual) Band Neutrophils % Lymphocytes % (Manual) Atypical Lymphs % (Man) Monocytes % (Manual) Eosinophils % (Manual) Metamyelocytes % Abs Neuts (Manual) Lymphocytes # (Manual) Atyp Lymphs # (Manual) Monocytes # (Manual) Eosinophils # (Manual) Metamyelocytes # Platelet Estimate Plt Morphology Comment RBC Morphology Sodium Potassium Chloride Carbon Dioxide Anion Gap BUN Creatinine Estim Creat Clear Calc Estimated GFR POC Glucose 125 H 213 H Fasting Glucose Calcium Total Bilirubin AST ALT Alkaline Phosphatase Total Protein Albumin Preliminary micro results at discharge 09/13/23 15:45 Blood Culture - Preliminary Blood - Venous No growth after 24 hours. 09/13/23 15:45 Blood Culture - Preliminary Blood - Venous No growth after 24 hours. Discharge Plan Discharge Anticipated Discharge Date/Time: 09/15/23 13:05 Patient Disposition: Home Health Service Discharge Diagnosis: UTI Referrals: Keith MENDEZ [Outside] - 1 Week Darius Gonzales MD [Primary Care Provider] - 1 Week Discharge Medications: New doxazosin 2 mg Tablet 4 mg PO BEDTIME Qty: 60 0RF Protocol: Hold for SBP< HOLD for SBP < : 90 oxycodone 5 mg Tablet 5 mg PO Q4H PRN (Reason: Pain, Moderate(Pain Scale 4-6)) Qty: 15 0RF Rx Instructions: Partial Fill upon patient request. cefuroxime axetil 500 mg tablet 500 mg PO BID 10 Days Qty: 20 0RF Continued metoprolol tartrate 50 mg tablet 50 mg PO BID Qty: 180 3RF cilostazol 100 mg tablet 100 mg PO BID Qty: 180 3RF acetaminophen 500 mg capsule 1,000 mg PO Q8H PRN (Reason: pain) Qty: 30 0RF insulin lispro [Humalog KwikPen Insulin] 100 unit/mL insulin pen 16 unit subcut TIDAC aspirin 81 mg tablet,delayed release (DR/EC) 81 mg PO DAILY isosorbide mononitrate 60 mg tablet extended release 24 hr 60 mg PO DAILY amlodipine 10 mg tablet 10 mg PO DAILY irbesartan 150 mg tablet 150 mg PO DAILY ezetimibe 10 mg tablet 10 mg PO DAILY rosuvastatin 20 mg tablet 20 mg PO DAILY escitalopram oxalate 10 mg tablet 10 mg PO DAILY metformin 1,000 mg tablet 1,000 mg PO BID nitroglycerin 0.4 mg tablet, sublingual 0.4 mg sublingual Q5M PRN (Reason: Chest Pain) Rx Instructions: do not exceed 3 doses per episode Trulicity 3 mg/0.5 mL pen injector 3 mg subcut FR insulin glargine [Lantus Solostar U-100 Insulin] 100 unit/mL (3 mL) insulin pen 100 unit subcut DAILY Rx Instructions: took 40 units this am omeprazole 40 mg capsule,delayed release(DR/EC) 40 mg PO BID 30 Days Qty: 60 6RF trazodone 100 mg tablet 100 mg PO BEDTIME Discharge Orders: Discharge Order (Routine); Ordered 09/15/23 Ordered By: Mao English Diet: Advance to usual diet Activity on Discharge: As tolerated Stand Alone Forms: Patient Portal Discharge page Print Language: Iraqi Care Plan Goals: Resume all medications as taken prior to the hospital Health Concerns: Ceftin 500 mg twice daily for 10 days has been added to your regimen. Doxazosin 4 mg (2 tabs) has been added at bedtime. You can take oxycodone sparingly for pain. Plan of Treatment: Follow-up with PCP and Urology Assessment: See discharge summary
--- NOTE | 2023-09-15 13:23 | W.MHC.F2F ---
Service Date Service Date: 09/15/23 Encounter Date of encounter: 09/15/23 Encounter: Acute hospitalization Reasons for Services Signs and symptoms assessed: Medication management and management of pain along with gait training Reason for retirement: medication management, medication treatment and teach disease management Reason for physical therapy: home safety and mobility, gait/transfer training and ADL training Homebound: Leaving the home is medically contraindicated at this time without the asist of a device and/or another person due th the listed conditions above and below. Reason homebound: unsteady gait / fall risk and unable to drive Certification: Based on the above findings, I certify that this patient is confined to the home and needs intermittent retirement care, physical therapy and/or speech therapy, or continues to need occupational therapy. The patient is under my care, and I have initiated the establishment of the plan of care. The patient will be followed by a physician who will periodically review the plan of care. Time Spent With Patient Time: Total time managing care of this patient today ____ minutes.
== END 2023-09-15 14:39 | disposition home health service (06) | DRG 872 ==
LOC: HO.ED 19:18 → HO.EDOVER 20:57 → HO.IMC 23:37 → HO.S3 09-12 17:40
PROVIDERS: Family Medicine; Physician Assistant Medical; Admitting Provider Student in an Organized Health Care Education/Training Program; Emergency Provider Emergency Medicine; PCP Internal Medicine; Visit Provider Hospitalist
DX: A41.51 Sepsis due to Escherichia coli [E. coli] (principal); N17.9 Acute kidney failure, unspecified; N13.8 Other obstructive and reflux uropathy; A04.0 Enteropathogenic Escherichia coli infection; I25.10 Atherosclerotic heart disease of native coronary artery without angina pectoris; N40.1 Benign prostatic hyperplasia with lower urinary tract symptoms; E11.65 Type 2 diabetes mellitus with hyperglycemia; I10 Essential (primary) hypertension; F39 Unspecified mood [affective] disorder; K21.9 Gastro-esophageal reflux disease without esophagitis; M17.11 Unilateral primary osteoarthritis, right knee; G47.33 Obstructive sleep apnea (adult) (pediatric); E87.6 Hypokalemia; Z95.1 Presence of aortocoronary bypass graft; Z87.891 Personal history of nicotine dependence; Z79.4 Long term (current) use of insulin; Z79.82 Long term (current) use of aspirin; Z79.84 Long term (current) use of oral hypoglycemic drugs; Z79.85 Long-term (current) use of injectable non-insulin antidiabetic drugs; Z79.899 Other long term (current) drug therapy
CPT/HCPCS: 36415; 73564; 74018; 74176; 76870; 80048; 80053; 80076; 81001; 82010; 82803; 82947; 83605; 83690; 83735; 83880; 85007; 85025; 85027; 85652; 86140; 87040; 87077; 87086; 87088; 87186; 87205; 87491; 87493; 87507; 87591; 93005; 93975; 94660; 97161; 99285; J0696; J1650; J7120

== ENCOUNTER 2023-09-08 20:54 | Outpatient (BNV) | payer MEDICARE, MEDICAID, SELFPAY | END 2023-09-08 22:18 | PROVIDERS: Admitting Provider Student in an Organized Health Care Education/Training Program; Emergency Provider Emergency Medicine; PCP Internal Medicine; Visit Provider Internal Medicine Cardiovascular Disease | DX: R00.0 Tachycardia, unspecified (principal); I49.1 Atrial premature depolarization; R94.31 Abnormal electrocardiogram [ECG] [EKG] | CPT/HCPCS: 93010 ==

== ENCOUNTER → 2023-09-08 20:54 | Outpatient (BNV) | payer MEDICARE, MEDICAID, SELFPAY | PROVIDERS: Admitting Provider Student in an Organized Health Care Education/Training Program; Emergency Provider Emergency Medicine; PCP Internal Medicine; Visit Provider Student in an Organized Health Care Education/Training Program | DX: A41.9 Sepsis, unspecified organism (principal); R78.81 Bacteremia; N39.0 Urinary tract infection, site not specified | CPT/HCPCS: 99222; 99232; 99239; G0180 ==

== ENCOUNTER → 2023-09-08 20:54 | Outpatient (BNV) | payer MEDICARE, MEDICAID, SELFPAY | PROVIDERS: Admitting Provider Student in an Organized Health Care Education/Training Program; Emergency Provider Emergency Medicine; PCP Internal Medicine; Visit Provider Urology | DX: R78.81 Bacteremia (principal); N20.0 Calculus of kidney; N32.0 Bladder-neck obstruction | CPT/HCPCS: 99222 ==

== ENCOUNTER → 2023-09-08 20:54 | Outpatient (BNV) | payer MEDICARE, MEDICAID, SELFPAY | PROVIDERS: Admitting Provider Student in an Organized Health Care Education/Training Program; Emergency Provider Emergency Medicine; PCP Internal Medicine; Visit Provider Internal Medicine | DX: N32.0 Bladder-neck obstruction (principal); R78.81 Bacteremia; R10.9 Unspecified abdominal pain; A41.9 Sepsis, unspecified organism | CPT/HCPCS: 99222 ==

== ENCOUNTER 2023-09-22 14:24 | Outpatient (REF) | payer MEDICARE, MEDICAID, SELFPAY ==
--- NOTE | ~2023-09-22 | XR_ITS ---
EXAMINATION: XR KNEE, RIGHT CLINICAL INFORMATION: Pain of 3 weeks' duration COMPARISON: Prior radiographs, most recently 09/08/2023. TECHNIQUE: Frontal, tunnel and lateral views of the right knee are submitted. FINDINGS: Bony alignment and mineralization are normal. The lateral and medial joint space compartments are well-maintained. There is mild narrowing of the patellofemoral compartment, with peripheral osteophyte formation. No fracture, dislocation or joint effusion is seen. There is no foreign body. There are surgical clips in the medial upper calf. XR/XR knee RT 3V IMPRESSION: 1. No right knee fracture, dislocation or joint effusion is seen. 2. There is mild osteoarthritic change of the right patellofemoral compartment.
== END 2023-09-22 14:25 | disposition home or self-care (01) ==
LOC: HO.HHCX 14:24
PROVIDERS: Visit Provider Internal Medicine
DX: Z13.89 Encounter for screening for other disorder (principal)
CPT/HCPCS: 73562

== ENCOUNTER 2023-09-22 15:57 | Outpatient (REF) | payer MEDICARE, MEDICAID, SELFPAY ==
--- NOTE | ~2023-09-22 | US_ITS ---
EXAMINATION: US VENOUS ULTRASOUND WITH DOPPLER LOWER EXTREMITY, RIGHT CLINICAL INFORMATION: Acute pain of right knee COMPARISON: Venous ultrasound the right lower extremity 03/08/2019-negative TECHNIQUE: Ultrasound of the deep veins is performed from the hip to the calf with compression sonography and color and pulse Doppler assessment. Spectral analysis with color-flow imaging is performed. FINDINGS: There is normal venous compression and respiratory variation and augmented flow. The visualized common femoral vein, superficial femoral vein, profunda femoral vein, popliteal vein shows no evidence of deep venous thrombosis. The calf veins are not well seen due to body habitus. US/US venous duplex LE RT IMPRESSION: No DVT demonstrated in the right lower extremity.
== END 2023-09-22 15:58 | disposition home or self-care (01) ==
LOC: HO.US 15:57
PROVIDERS: PCP Internal Medicine; Visit Provider Internal Medicine
DX: M25.561 Pain in right knee (principal); R60.0 Localized edema
CPT/HCPCS: 73562; 93971

== ENCOUNTER 2023-09-28 08:05 | Outpatient (REF) | payer MEDICARE, MEDICAID, SELFPAY ==
--- NOTE | ~2023-09-28 | XR_ITS ---
EXAMINATION: XR KNEE, RIGHT CLINICAL INFORMATION: Primary osteoarthritis right knee COMPARISON: September 22, 2023 TECHNIQUE: Lateral and sunrise views of the right knee. FINDINGS: No evidence of joint effusion. Soft tissue swelling is seen along the patellar tendon. Mild degenerative changes are identified at the patellar margins. No patellar subluxation is seen. No acute fracture is identified. Surgical clips are visualized adjacent to the proximal tibia. XR/XR knee RT 3V IMPRESSION: Soft tissue swelling. Mild degenerative changes. No acute fracture or dislocation is seen. No joint effusion is seen. Electronically signed by: Daniel Medina MD 10/11/2023 02:14 PM EDT
--- NOTE | ~2023-09-28 | XR_ITS ---
EXAMINATION: XR KNEE, LEFT CLINICAL INFORMATION: Pain in left knee COMPARISON: 04/21/2019. TECHNIQUE: Standing AP view of the left knee with comparison view of the right knee included. FINDINGS: Mild narrowing of the right and left medial joint compartment on the standing view with mild bilateral varus deformity. Mild degenerative changes are seen bilaterally with osteophytes at the right and left tibial spines and the medial joint margin on the left. Surgical clips are seen in the proximal right lower extremity medially. XR/XR knee LT 1V IMPRESSION: 1. Mild medial joint compartment narrowing with mild bilateral varus deformity. No significant change from prior. 2. No acute osseous abnormality is seen. Electronically signed by: Daniel Medina MD 10/11/2023 02:13 PM EDT
== END 2023-09-28 08:06 | disposition home or self-care (01) ==
LOC: HO.HOSX 08:05
DX: M17.11 Unilateral primary osteoarthritis, right knee (principal); M25.562 Pain in left knee; M25.561 Pain in right knee
CPT/HCPCS: 20610; 73560; 73562; 99202; J1010

== ENCOUNTER 2023-09-28 13:05 | Outpatient (AMB) | payer MEDICARE, MEDICAID, SELFPAY ==
--- NOTE | 2023-09-28 13:22 | A.OFFVIS_ITS ---
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 Pt states his right knee pain started about 3 weeks ago and was told by the ER that he had arthritis in his knee. Pt denies any previous surgeries. Pt states about 3 years ago he received a cortisone injection which helped. 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 Patient reports no particular incident or injury that preceded this pain, but reports that he woke up 1 day and was experiencing significant discomfort in his right knee. The patient does report that he does have previous diagnoses of bilateral osteoarthritis in his knees, and then he has received injections into his right knee previously to great effect. Patient reports that last injection was approximately 3 years ago, and that this pain is very similar to the pain he was experiencing prior to previous injections. No other acute complaints or concerns. [facility] Medical History Type 2 diabetes mellitus with unspecified complications Sepsis Hyperthyroidism Multinodular thyroid HLD (hyperlipidemia) HTN (hypertension) Obesity NSTEMI (non-ST elevated myocardial infarction) CAD (coronary artery disease) Diabetes mellitus Myocardial infarct Surgical History History of esophagogastroduodenoscopy (EGD) Hx of colonoscopy Hx of ultrasound guided needle biopsy Hx of CABG (~07/2016) Family History Mother Cardiovascular disease Father Medical history unknown Sister Cancer Brother Cancer Social History Household Members: Spouse and Children Housing: House Do you presently have visiting nurse or other home services: No Alcohol intake: former Patient Tobacco Use Status: Former Tobacco user service: No Current occupational status: unemployed Review of Systems Const All systems reviewed & are unremarkable except as noted in HPI and below Physical Exam Extrem Other: On inspection, there is noted edema of the anterior knee, particularly in the joint line and suprapatellar spaces No ecchymosis, erythema noted No evidence of infection No lacerations, abrasions, open areas noted Patient reports diffuse tenderness to palpation of the right knee, but pain is worst in the suprapatellar area in the medial and lateral anterior joint lines Patient is able to actively extend the knee to approximately 10-15 degrees, but is restricted due to pain Patient is able to actively flex the knee to 130 degrees without difficulty Passive range of motion full and intact Patient is able to hold the knee in full extension when in his passively extended Distal sensation intact Capillary refill brisk Office Procedures Joint Injection/Aspiration Joint Injection/Aspiration Primary Site: right knee Prep: site was prepped using aseptic technique Injected: 40 mg of, DepoMedrol, with 8 mL of and 1% plain lidocaine Approach Used: anterolateral Procedure: The patient tolerated the procedure well and there was some relief with the local anesthesia Coding 46516 - Medium joint Procedure code (CPT) selection complete Results Reviewed Results Reviewed: X-rays obtained in the office today and independently reviewed by me, Toney Singh PA-C, demonstrate [id number] degenerative changes of bilateral knees. Assessment & Plan Assessment & Plan (1) Osteoarthritis of knees, bilateral: Code(s): M17.0 - Bilateral primary osteoarthritis of knee Category: Medical Plan 1. Osteoarthritis of right knee Patient is educated about this condition and the treatment options available After discussion of treatment options, the patient would like to proceed with injection The risks and benefits of a steroid injection including but not limited to risk of damage to blood vessels, nerves, tendons, infection, skin bleaching, failure to improve symptoms, increased pain, and possible need for further injections or other intervention were discussed with the patient and the patient wishes to proceed with the steroid injection. The patient is also educated about the e ffects of steroid injections on blood sugar levels in diabetic patients, and understands these effects. Once consent was obtained, I aseptically prepped the area over the anterolateral joint line of the right knee. I then injected the knee joint with a combination of 40 mg of dexamethasone and 8 mL of 1% lidocaine. The patient tolerated the procedure well with no complications. If the patient continues to experience symptoms over the following few weeks or months, they can make an appointment to return and discuss alternative treatment measures, such as physical therapy. 2. Osteoarthritis of left knee Patient has no acute complaints or concerns of his left knee at this time Follow-up prn Orders: Orders XR knee RT 1V Today M25.561 - Pain in right knee XR knee RT 3V Today M17.11 - Unilateral primary osteoarthritis, right knee XR knee LT 1V Today M25.562 - Pain in left knee XR knee LT 3V Today M25.562 - Pain in left knee Coding Level of Care Code New Pt Level 3 (92326) Diagnoses Osteoarthritis of knees, bilateral M17.0 CPT Codes Coding - 48645 Medium joint: 47486 - Medium joint ([id number])
== END 2023-09-28 14:11 | disposition home or self-care (01) ==
PROVIDERS: PCP Internal Medicine
DX: M17.0 Bilateral primary osteoarthritis of knee (principal)
CPT/HCPCS: 20610; 99203

== ENCOUNTER 2023-10-11 09:49 | Inpatient (IN) | payer MEDICARE, MEDICAID, SELFPAY ==
[2023-10-11] VITALS (8 sets, daily range): BP systolic 136–180; BP diastolic 58–89; PULSE 67–87; RESP 17–20; TEMP 36.6–36.9; O2SAT 95–97; BMI 33.4
--- NOTE | ~2023-10-11 | CT_ITS ---
EXAMINATION: CT ABDOMEN AND PELVIS WITHOUT CONTRAST CLINICAL INFORMATION: Lower abdominal pain. COMPARISON: CT abdomen and pelvis from 09/08/2023.. TECHNIQUE: Multidetector volumetric imaging was performed from the lung bases to the pubic without contrast. Sagittal and coronal reformatted images were obtained on the technologist workstation. This CT examination was performed using dose optimization techniques as appropriate, variously including the following: *Automated exposure control. *Adjustment of mA and/or kV according to patient size (this includes techniques or standardized protocols for targeted exams where dose is matched to indication/reason for exam; i.e. extremities or head). *Use of iterative reconstruction technique. DLP: 700 mGy-cm FINDINGS: LUNG BASES: Mild bilateral dependent atelectasis. Otherwise, no abnormalities of the visualized lung bases. Prior median sternotomy for CABG. No demonstrated additional abnormalities of the visualized cardiac structures. Coronary artery calcifications: Present - moderate. ABDOMEN/PELVIS: Liver, Biliary Ducts, and Gallbladder: The unenhanced liver is normal in size and attenuation without focal hepatic lesions or biliary ductal dilatation. The gallbladder is physiologically distended without radiopaque gallstones, pericholecystic fluid, or significant gallbladder wall thickening. Pancreas: The pancreas is normal in appearance. Adrenal Glands: The adrenal glands are normal in appearance. Spleen: The spleen is normal in appearance. Kidneys and Ureters: The unenhanced kidneys are normal in size without evidence of nephrolithiasis or hydronephrosis. No ureterolithiasis or hydroureter. There is a 9.2 cm cystic structure in the right kidney appears of benign characteristics (no follow-up imaging recommended based on current guidelines at the time of examination). Urinary Bladder: The urinary bladder is partially distended. There appears to be a degree of circumferential wall thickening of the urinary bladder with moderate perivesicular fat stranding. No bladder calculi are demonstrated. Gastrointestinal System: The stomach is decompressed and therefore not well evaluated on this exam. The small bowel is of normal caliber. Moderate descending and sigmoid colon diverticulosis. Otherwise, the colon is normal in appearance without focal wall thickening or pericolonic inflammatory change. Normal appendix. Genitourinary: Significant heterogeneous enlargement of the prostate gland, measuring up to 7.7 cm in axial dimension (previously 6.3 cm on exam from 09/08/2023). There appears to be multifocal regions of hypoattenuation centrally within the expanded prostate gland. Intra-abdominal and Retroperitoneal Spaces: No intra-abdominal free fluid collections or gas. No mesenteric, retroperitoneal, or inguinal lymphadenopathy. VASCULATURE: Abdominal aorta is of normal contour and caliber with moderate calcific atherosclerotic disease MUSCULOSKELETAL: Moderate multilevel degenerative changes of the spine. Chronic fatty atrophy of the right iliopsoas musculature. No lytic or sclerotic osseous lesions demonstrated. No soft tissue masses demonstrated. CT/CT abdomen pelvis wo IV con IMPRESSION: 1. Significant heterogeneous enlargement of the prostate gland, measuring up to 7.7 cm in axial dimension (previously 6.3 cm on exam from 09/08/2023). There appears to be multifocal regions of hypoattenuation centrally within the expanded prostate gland, potentially suggesting prostatic abscess formation. 2. There appears to be a degree of circumferential wall thickening of the urinary bladder (although the urinary bladder is not fully distended on this exam). These changes may indicate sequela of underlying urinary tract infection. Recommend correlation with urinalysis. 3. Diverticulosis without evidence of diverticulitis. Electronically signed by: Kiko Hoffman DO 10/11/2023 01:50 PM EDT
--- NOTE | ~2023-10-11 | CT_ITS ---
EXAMINATION: CT HEAD WITHOUT CONTRAST CLINICAL INFORMATION: Pain after fall COMPARISON: None available. TECHNIQUE: Contiguous axial imaging was performed from the skull base to vertex without intravenous administration of contrast. This CT examination was performed using dose optimization techniques as appropriate, variously including the following: *Automated exposure control *Adjustment of mA and/or kV according to patient size (this includes techniques or standardized protocols for targeted exams where dose is matched to indication/reason for exam; i.e. extremities or head) *Use of iterative reconstruction technique DLP: 1038 mGy-cm FINDINGS: Prominence to the sulci and ventricles. No intra or extra-axial fluid collection, hemorrhage, mass, or mass effect. Mild deep white matter gliosis. Calvarium intact. CT/CT head/brain wo IV con IMPRESSION: No acute intracranial pathology. No evidence of an intracranial bleed. Electronically signed by: Dez Alcantara MD 10/14/2023 03:26 PM EDT
--- NOTE | ~2023-10-11 | XR_ITS ---
EXAMINATION: RADIOGRAPH RIGHT HIP AND RIGHT KNEE CLINICAL INFORMATION: Fall. COMPARISON: Radiograph right knee 10/11/2023. CT abdomen/pelvis 03/02/2023. TECHNIQUE: 2 views of the right hip and 4 views of the right knee. FINDINGS: Right hip: No acute fracture or dislocation. Mild degenerative changes of the right hip. Indeterminate radiopaque clip overlying the soft tissues of the proximal inner thigh. Scattered vascular calcifications. Right knee: No acute fracture or dislocation. [id number] degenerative osteoarthritis of the medial and patellofemoral compartments. Marginal osteophytes are seen at the patella and tibial spines. No osseous erosions. Small joint effusion. Redemonstration of soft tissue swelling along the patellar tendon. Multiple surgical clips overlying the soft tissues of the medial compartment. Scattered vascular calcifications. XR/XR knee RT 2V IMPRESSION: RIGHT HIP: No acute fracture or dislocation. RIGHT KNEE: 1. No acute fracture or dislocation. 2. Again noted small joint effusion and soft tissue swelling along the patellar tendon. Electronically signed by: Vale Riojas MD 10/13/2023 11:38 PM EDT
--- NOTE | ~2023-10-11 | XR_ITS ---
EXAMINATION: XR knee RT 2V CLINICAL INFORMATION: acute on chronic anterior knee pain COMPARISON: Right knee radiographs 09/28/2003. TECHNIQUE: AP and lateral views right knee FINDINGS: Small right knee effusion. Mild soft tissue swelling along the patellar tendon. Incidental surgical clips in the medial proximal lower leg. The alignment is normal without joint space narrowing seen. Marginal osteophytes are seen at the patella and tibial spines. XR/XR knee RT 2V IMPRESSION: Small knee effusion. Mild degenerative changes. No acute osseous abnormality is appreciated. Electronically signed by: Daniel Medina MD 10/11/2023 02:09 PM EDT
--- NOTE | ~2023-10-11 | XR_ITS ---
EXAMINATION: RADIOGRAPH RIGHT HIP AND RIGHT KNEE CLINICAL INFORMATION: Fall. COMPARISON: Radiograph right knee 10/11/2023. CT abdomen/pelvis 03/02/2023. TECHNIQUE: 2 views of the right hip and 4 views of the right knee. FINDINGS: Right hip: No acute fracture or dislocation. Mild degenerative changes of the right hip. Indeterminate radiopaque clip overlying the soft tissues of the proximal inner thigh. Scattered vascular calcifications. Right knee: No acute fracture or dislocation. [id number] degenerative osteoarthritis of the medial and patellofemoral compartments. Marginal osteophytes are seen at the patella and tibial spines. No osseous erosions. Small joint effusion. Redemonstration of soft tissue swelling along the patellar tendon. Multiple surgical clips overlying the soft tissues of the medial compartment. Scattered vascular calcifications. XR/XR hip RT min 2V IMPRESSION: RIGHT HIP: No acute fracture or dislocation. RIGHT KNEE: 1. No acute fracture or dislocation. 2. Again noted small joint effusion and soft tissue swelling along the patellar tendon. Electronically signed by: Vale Riojas MD 10/13/2023 11:38 PM EDT
--- NOTE | 2023-10-11 11:17 | ED_ITS ---
HPI - Male Genitourinary General Chief complaint: Urogenital-Male Stated complaint: r knee pain- private area pain Time Seen by Provider: 10/11/23 10:39 Source: patient, family () and care professional (djiboutian) Mode of arrival: ambulatory Limitations: language barrier (djiboutian speaking) History of Present Illness ED Provider: terry horton pa-c HPI Narrative: 73 year old djiboutian speaking male with pmhx significant for CAD s/p CABG, insulin-dependent diabetes mellitus, hypertension, mood disorder, BPH, DEANDRE on CPAP, GERD presents to the ED today for evaluation of urinary hesitancy and dysuria x3 days. Additionally endorses a small bump to his right groin area that he noticed yesterday. Denies fever, chills, hematuria, flank pain, nausea, vomiting, rashes. Patient endorses history of BPH, on finasteride. States he was referred to a specialist however never received a phone call from them and has thus never followed up. Also admits to chronic constipation, straining to pass bowel movements. Last bowel movement was this morning. Endorses chronic right knee pain. He has received corticosteroid injections in his knee in the past without much improvement. Denies new injury or trauma to the knee. Uses cane to ambulate. Of note, patient admitted to [facility] from 09/09/23 - 09/15/23 for WILLIAM, baceremia/ urosepsis. During his admission, Urologist Dr. Carney was consulted as patient was complaining of similar symptoms (chronic dysuria and urinary hesitancy). Patient was initiated on IV antibiotics for suspected urosepsis. He also recommended aggressive diabetic management along with addition of BPH medications (finasteride, doxazosin). towboat captain utilized throughout visit to communicate with patient. Related Data Home Medications ?Medication ?Instructions ?Recorded ?Confirmed escitalopram oxalate 10 mg tablet 10 mg PO DAILY 02/07/20 10/11/23 metformin 1,000 mg tablet 1,000 mg PO DAILY 02/07/20 10/11/23 insulin glargine 100 unit/mL (3 85 unit subcut DAILY 10/30/21 10/11/23 mL) subcutaneous pen (Lantus Solostar U-100 Insulin) trazodone 100 mg tablet 100 mg PO BEDTIME 02/23/23 10/11/23 amlodipine 10 mg tablet 10 mg PO DAILY 09/08/23 10/11/23 aspirin 81 mg tablet,delayed 81 mg PO DAILY 09/08/23 10/11/23 release ezetimibe 10 mg tablet 10 mg PO DAILY 09/08/23 10/11/23 insulin lispro 100 unit/mL 16 unit subcut TIDAC 09/08/23 10/11/23 subcutaneous pen (Humalog KwikPen (U-100) Insulin) irbesartan 150 mg tablet 150 mg PO DAILY 09/08/23 10/11/23 isosorbide mononitrate 60 mg 60 mg PO DAILY 09/08/23 10/11/23 tablet,extended release 24 hr rosuvastatin 20 mg tablet 20 mg PO DAILY 09/08/23 10/11/23 dulaglutide 4.5 mg/0.5 mL 4.5 mg subcut FR 10/11/23 10/11/23 subcutaneous pen injector (Trulicity) melatonin 3 mg tablet 3 mg PO BEDTIME PRN Sleep 10/11/23 10/11/23 Previous Rx's ?Medication ?Instructions ?Recorded acetaminophen 500 mg capsule 1,000 mg (2 x 500 mg) PO Q8H PRN 05/28/22 pain #30 caps cilostazol 100 mg tablet 100 mg PO BID #180 tabs 10/30/22 doxazosin 2 mg tablet 4 mg PO BEDTIME #60 tabs 09/15/23 nitroglycerin 0.4 mg sublingual 0.4 mg sublingual Q5M PRN Chest 09/29/23 tablet Pain #30 tabs metoprolol tartrate 50 mg tablet 50 mg PO BID #180 tabs 10/05/23 omeprazole 40 mg capsule,delayed 40 mg PO BID #60 caps 10/05/23 release Allergies Allergy/AdvReac Type Severity Reaction Status Date / Time No Known Allergies Allergy Verified 10/11/23 10:13 [No Known Allergies*] Review of Systems 2 Review of Systems: Constitutional: No fever, chills, fatigue, night sweats, weight changes ENT/Mouth: No ear pain, hearing loss, nasal congestion, sinus pain, rhinorrhea, sore throat Eyes: No eye pain, swelling, redness, vision changes, discharge Cardio: No chest pain, palpitations, SAMUEL, orthopnea, peripheral edema Pulm: No SOB, cough, sputum, wheezing, dyspnea, hemoptysis GI: No nausea, vomiting, hematemesis, abdominal pain, diarrhea, constipation, hematochezia, melena : No irregular bleeding, frequency, urgency, hematuria, flank pain, urinary flow changes, urinary incontinence or retention, +dysuria, +hesitancy MSK: No back pain, neck pain, joint pain, myalgias Skin: No lesions, rashes Neuro: No weakness, numbness, paresthesias, LOC, dizziness, headache Psych: No anxiety/panic, depression, SI/HI, AH/VH All other systems reviewed and are negative. [facility] Past Medical History Attestation statement: The following information was validated with the patient. Source: old records reviewed and nursing notes reviewed Medical History Type 2 diabetes mellitus with unspecified complications Sepsis Hyperthyroidism Multinodular thyroid HLD (hyperlipidemia) HTN (hypertension) Obesity NSTEMI (non-ST elevated myocardial infarction) CAD (coronary artery disease) Diabetes mellitus Myocardial infarct Surgical History History of esophagogastroduodenoscopy (EGD) Hx of colonoscopy Hx of ultrasound guided needle biopsy Hx of CABG (~07/2016) Family History Family History Mother Cardiovascular disease Father Medical history unknown Sister Cancer Brother Cancer Social History Social History Household Members: Spouse and Children Housing: House Do you presently have visiting nurse or other home services: No Alcohol intake: former Patient Tobacco Use Status: Former Tobacco user Smoked in Last 30 Days: No Use of substances other than those prescribed or required for medical reasons: No Advance Directives: No Advance Directives Information Provided: No service: No Current occupational status: unemployed Physical Exam 2 Vital Signs: Vital Signs: Last Vital Signs Temp 98 F 10/11/23 17:12 Pulse 71 10/11/23 17:12 Resp 19 10/11/23 17:12 BP 164/58 H 10/11/23 17:12 Pulse Ox 97 10/11/23 17:12 O2 Del Method Room Air 10/11/23 17:12 BMI result Body Mass Index 33.4 Vital signs stable, afebrile General: Well appearing, in no acute distress. Skin: Warm, dry, intact. No rashes or lesions. Head: Normocephalic, atraumatic. EENT: Hearing is intact b/l. Conjunctiva clear. Sclera is anicteric. PERRLA. EOM intact. Moist mucous membranes.? Neck: Supple without LAD. FROM. Trachea midline.? Cardiac: Chest wall symmetric. RRR. Lungs: Normal respiratory effort without accessory muscle use. CTA bilaterally. No rales, rhonchi, or wheezes.? Abdomen: Soft, non-tender, non-distended. No rebound tenderness or guarding. Positive BS x4. Prostate exam deferred. no CVAT bilaterally Back: No midline spinous or paraspinal tenderness. No step off deformity. Ext: Upper and lower extremities atraumatic, without tenderness, deformity, swelling or erythema. Full ROM throughout. Neuro: AOx3. Normal speech. CN 2-12 grossly intact. Strength 5/5 intact throughout. Sensation intact to light touch. NV intact distally. Reflexes 2+ bilaterally. Ambulating with steady gait assisted by cane. Psych: Appropriate mood and affect. Responds appropriately to questions. Course Course Course Narrative: 1404 -- CBC without leukocytosis or left shift. Chronic normocytic anemia, stable when compared to priors. Chemistry without acute electrolyte abnormality requiring intervention. No WILLIAM. Normal liver function. urinalysis reveals positive leukocyte esterase and elevated white blood cell count consistent with urinary tract infection. CT scan abdomen/pelvis shows an enlarged prostate with findings suggestive of possible abscess along with bladder wall thickening. Testing for chlamydia and gonorrhea are negative. > lactic acid WNL at 0.7. Blood cultures obtained. Patient treated with IV Toradol and administered 1 L normal saline. > I discussed findings with on-call urologist, Dr. Lopez, who notes concern for continued infection complicated by abscess. She advises starting the patient on IV antibiotics (last urine culture grew >100k e coli sensitive to ampicillin, ceftriaxone, gentamicin, levofloxacin, nitrofurantoin and Bactrim). IV Levaquin ordered. She recommends admission to medicine. States she will follow and place formal consult on Thursday when she returns. She asked that the patient may need infectious disease consultation. Abscess may require drainage by IR if he does not seem to be improving with IV antibiotics. > I reached out to hospitalist, Dr. Shah, who has accepted patient admission to medicine for treatment of prostatitis, cystitis, and possible prostatic abscess with IV antibiotics. > I discussed admission with patient and his were both agreeable. Medications Administered Generic Name Dose Route Start Last Admin Trade Name Freq PRN Reason Stop Dose Admin Enoxaparin Sodium 40 mg 10/11/23 16:00 10/11/23 16:12 Enoxaparin Sodium 40 Mg/0.4 Ml Syringe SUBCUT 40 mg Q24H EMELY Administration Insulin Human Lispro 0 unit 10/11/23 16:30 10/11/23 18:06 Insulin Lispro 100 Unit/Ml 3 Ml Vial SUBCUT Not Given QIDACHS COUNT INCLUDES THE [facility] Protocol Morphine Sulfate 2 mg 10/11/23 15:40 10/11/23 16:38 Morphine Sulfate 2 Mg/Ml Cartridge IVPUSH 2 mg Q6H PRN Administration Pain, Severe (Pain Scale 7-10) Protocol Sodium Chloride 3 ml 10/11/23 16:00 10/11/23 16:12 0.9 % Sodium Chloride Flush 3 Ml Syringe IVFLUSH 3 ml QSHIFT EMELY Administration Discontinued Medications Generic Name Dose Route Start Last Admin Trade Name Freq PRN Reason Stop Dose Admin Levofloxacin 750 mg in 150 mls @ 100 mls/hr 10/11/23 14:12 10/11/23 16:05 Levaquin IV 10/11/23 15:41 Infused ONCE ONE Infusion Sodium Chloride 1,000 mls @ 999 mls/hr 10/11/23 14:15 10/11/23 15:51 Ns IV 10/11/23 15:15 Infused .Q1H1M EMELY Infusion Ketorolac Tromethamine 30 mg 10/11/23 14:12 10/11/23 14:24 Ketorolac Tromethamine 30 Mg/Ml Vial IVPUSH 10/11/23 14:13 30 mg ONCE ONE Administration Medical Decision Making Medical Decision Making MDM Narrative: 73 year old djiboutian speaking male with pmhx significant for CAD s/p CABG, insulin-dependent diabetes mellitus, hypertension, mood disorder, BPH, DEANDRE on CPAP, GERD presents to the ED today for evaluation of urinary hesitancy and dysuria x3 days. Vital signs stable. Patient is afebrile. He is nontoxic- appearing and in no acute distress. Obese abdomen, soft, nondistended, nontender to palpation, no rebound tenderness or guarding. Prostate exam deferred. No CVAT bilaterally. Skin warm, dry, intact. No rashes. Differential diagnosis includes UTI, STI, BPH, prostatitis, constipation, right knee arthritis Plan for labs, UA, CT/NG, CT abd/pelvis, xr right knee, and re-evaluation. Differential Diagnosis Differential Diagnoses: The differential diagnosis associated with the presentation includes As above Admission/Observation Consideration of admission/observation: Escalation of care including admission/observation considered Patient to be admitted to medicine for acute prostatitis, cystitis and possible prostatic abscess requiring IV antibiotic treatment Consult Healthcare Provider Management of the patient was discussed with: Hospitalist (Dr. Shah) and Counseling Services Director (Urologist Dr. Cohen) Lab Data MDM Lab Attestation statement: I reviewed the patient's lab results. As above 10/11/23 11:47 10/11/23 11:47 Labs: Lab Results 10/11/23 10/11/23 10/11/23 Range/Units 11:47 11:48 11:49 WBC 10.3 (4.8-10.8) X10*3/uL RBC 4.16 L (4.60-5.80) X10*6/uL Hgb 11.8 L (14.0-18.0) g/dl Hct 35.1 L (42.0-52.0) % MCV 84.4 (80.0-98.0) fL MCH 28.4 (27.0-33.0) pg MCHC 33.6 (31.0-36.0) g/dl RDW 15.2 (11.0-16.0) % Plt Count 250 D (160-400) X10*3/uL MPV 8.6 L (9.4-12.4) fL Immature Gran % (Auto) 0.4 (0.0-0.4) % Neut % (Auto) 60.5 (45-73) % Lymph % (Auto) 27.9 (20-40) % [place] % (Auto) 9.0 (2-11) % Eos % (Auto) 2.0 (0-4) % Baso % (Auto) 0.2 (0-2) % Lymph # (Auto) 2.9 (1.2-4.9) X10*3/uL [place] # (Auto) 0.9 (0.1-1.2) X10*3/uL Eos # (Auto) 0.2 (0.0-0.4) X10*3/uL Baso # (Auto) 0.0 (0.0-0.2) X10*3/uL Abs Immat Gran (auto) 0.04 H (0.00-0.03) X10*3/uL Absolute Neuts (auto) 6.2 (2.0-8.3) x10*3/uL Absolute Nucleated RBC 0.000 (0.0-0.012) X10*3/uL Nucleated RBC % (auto) 0.0 (0.0-0.2) /100WBC Sodium 138 (135-145) mmol/L Potassium 3.9 (3.3-5.1) mmol/L Chloride 106 (96-108) mmol/L Carbon Dioxide 24 (22-29) mmol/L Anion Gap 12 (12-20) BUN 16 (9-16) mg/dL Creatinine 0.89 (0.5-1.4) mg/dL Estim Creat Clear Calc 76.9 Estimated GFR > 60 POC Glucose (60-115) mg/dL Random Glucose 117 H (60-115) mg/dL Lactic Acid (0.5-2.0) mmol/L Calcium 9.4 D (8.4-10.2) mg/dL Magnesium 2.0 (1.6-2.6) mg/dL Total Bilirubin 0.3 (0.0-1.0) mg/dL AST 10 (5-37) U/L ALT 13 (0-40) U/L Alkaline Phosphatase 93 (39-117) U/L Total Protein 7.5 (6.5-8.0) g/dL Albumin 3.4 L (3.5-5.0) g/dL Urine Color Yellow Urine Appearance Cloudy Urine pH 5.5 (5.0-9.0) Ur Specific [place] 1.025 (1.005-1.025) Urine Protein Trace (Neg-Trace) mg/dL Urine Glucose (UA) Negative (Negative) mg/dL Urine Ketones Negative (Negative) mg/dL Urine Blood Negative (Negative) Urine Nitrite Negative (Negative) Ur Leukocyte Esterase Large (3+) H (Negative) Urine RBC 0-2 (0-2) /HPF Urine WBC >50 H (0-5) /HPF Ur Squamous Epith Cells 0-2 (0-2) /HPF Urine Bacteria None Seen (None Seen) Hyaline Casts 0-2 (0-2) /LPF Chlam trachomat DNA PCR NOT DETECTED (Not Detect.) N.gonorrhoeae DNA (PCR) NOT DETECTED (Not Detect.) 10/11/23 10/11/23 Range/Units 14:19 14:35 WBC (4.8-10.8) X10*3/uL RBC (4.60-5.80) X10*6/uL Hgb (14.0-18.0) g/dl Hct (42.0-52.0) % MCV (80.0-98.0) fL MCH (27.0-33.0) pg MCHC (31.0-36.0) g/dl RDW (11.0-16.0) % Plt Count (160-400) X10*3/uL MPV (9.4-12.4) fL Immature Gran % (Auto) (0.0-0.4) % Neut % (Auto) (45-73) % Lymph % (Auto) (20-40) % [place] % (Auto) (2-11) % Eos % (Auto) (0-4) % Baso % (Auto) (0-2) % Lymph # (Auto) (1.2-4.9) X10*3/uL [place] # (Auto) (0.1-1.2) X10*3/uL Eos # (Auto) (0.0-0.4) X10*3/uL Baso # (Auto) (0.0-0.2) X10*3/uL Abs Immat Gran (auto) (0.00-0.03) X10*3/uL Absolute Neuts (auto) (2.0-8.3) x10*3/uL Absolute Nucleated RBC (0.0-0.012) X10*3/uL Nucleated RBC % (auto) (0.0-0.2) /100WBC Sodium (135-145) mmol/L Potassium (3.3-5.1) mmol/L Chloride (96-108) mmol/L Carbon Dioxide (22-29) mmol/L Anion Gap (12-20) BUN (9-16) mg/dL Creatinine (0.5-1.4) mg/dL Estim Creat Clear Calc Estimated GFR POC Glucose 84 (60-115) mg/dL Random Glucose (60-115) mg/dL Lactic Acid 0.7 (0.5-2.0) mmol/L Calcium (8.4-10.2) mg/dL Magnesium (1.6-2.6) mg/dL Total Bilirubin (0.0-1.0) mg/dL AST (5-37) U/L ALT (0-40) U/L Alkaline Phosphatase (39-117) U/L Total Protein (6.5-8.0) g/dL Albumin (3.5-5.0) g/dL Urine Color Urine Appearance Urine pH (5.0-9.0) Ur Specific [place] (1.005-1.025) Urine Protein (Neg-Trace) mg/dL Urine Glucose (UA) (Negative) mg/dL Urine Ketones (Negative) mg/dL Urine Blood (Negative) Urine Nitrite (Negative) Ur Leukocyte Esterase (Negative) Urine RBC (0-2) /HPF Urine WBC (0-5) /HPF Ur Squamous Epith Cells (0-2) /HPF Urine Bacteria (None Seen) Hyaline Casts (0-2) /LPF Chlam trachomat DNA PCR (Not Detect.) N.gonorrhoeae DNA (PCR) (Not Detect.) Independent Interpretation I performed an independent interpretation of an: Plain X-Ray and CT Scan Radiology Impression Discussion of test interpretation with radiology: I have reviewed the radiologist's reading. Radiologist Impression: EXAMINATION: CT ABDOMEN AND PELVIS WITHOUT CONTRAST CLINICAL INFORMATION: Lower abdominal pain. COMPARISON: CT abdomen and pelvis from 09/08/2023.. TECHNIQUE: Multidetector volumetric imaging was performed from the lung bases to the pubic without contrast. Sagittal and coronal reformatted images were obtained on the technologist workstation. This CT examination was performed using dose optimization techniques as appropriate, variously including the following: *Automated exposure control. *Adjustment of mA and/or kV according to patient size (this includes techniques or standardized protocols for targeted exams where dose is matched to indication/reason for exam; i.e. extremities or head). *Use of iterative reconstruction technique. DLP: 700 mGy-cm FINDINGS: LUNG BASES: Mild bilateral dependent atelectasis. Otherwise, no abnormalities of the visualized lung bases. Prior median sternotomy for CABG. No demonstrated additional abnormalities of the visualized cardiac structures. Coronary artery calcifications: Present - moderate. ABDOMEN/PELVIS: Liver, Biliary Ducts, and Gallbladder: The unenhanced liver is normal in size and attenuation without focal hepatic lesions or biliary ductal dilatation. The gallbladder is physiologically distended without radiopaque gallstones, pericholecystic fluid, or significant gallbladder wall thickening. Pancreas: The pancreas is normal in appearance. Adrenal Glands: The adrenal glands are normal in appearance. Spleen: The spleen is normal in appearance. Kidneys and Ureters: The unenhanced kidneys are normal in size without evidence of nephrolithiasis or hydronephrosis. No ureterolithiasis or hydroureter. There is a 9.2 cm cystic structure in the right kidney appears of benign characteristics (no follow-up imaging recommended based on current guidelines at the time of examination). Urinary Bladder: The urinary bladder is partially distended. There appears to be a degree of circumferential wall thickening of the urinary bladder with moderate perivesicular fat stranding. No bladder calculi are demonstrated. Gastrointestinal System: The stomach is decompressed and therefore not well evaluated on this exam. The small bowel is of normal caliber. Moderate descending and sigmoid colon diverticulosis. Otherwise, the colon is normal in appearance without focal wall thickening or pericolonic inflammatory change. Normal appendix. Genitourinary: Significant heterogeneous enlargement of the prostate gland, measuring up to 7.7 cm in axial dimension (previously 6.3 cm on exam from 09/08/2023). There appears to be multifocal regions of hypoattenuation centrally within the expanded prostate gland. Intra-abdominal and Retroperitoneal Spaces: No intra-abdominal free fluid collections or gas. No mesenteric, retroperitoneal, or inguinal lymphadenopathy. VASCULATURE: Abdominal aorta is of normal contour and caliber with moderate calcific atherosclerotic disease MUSCULOSKELETAL: Moderate multilevel degenerative changes of the spine. Chronic fatty atrophy of the right iliopsoas musculature. No lytic or sclerotic osseous lesions demonstrated. No soft tissue masses demonstrated. CT/CT abdomen pelvis wo IV con IMPRESSION: 1. Significant heterogeneous enlargement of the prostate gland, measuring up to 7.7 cm in axial dimension (previously 6.3 cm on exam from 09/08/2023). There appears to be multifocal regions of hypoattenuation centrally within the expanded prostate gland, potentially suggesting prostatic abscess formation. 2. There appears to be a degree of circumferential wall thickening of the urinary bladder (although the urinary bladder is not fully distended on this exam). These changes may indicate sequela of underlying urinary tract infection. Recommend correlation with urinalysis. 3. Diverticulosis without evidence of diverticulitis. Electronically signed by: Kiko Hoffman DO 10/11/2023 01:50 PM EDT RP - EXAMINATION: XR knee RT 2V CLINICAL INFORMATION: acute on chronic anterior knee pain COMPARISON: Right knee radiographs 09/28/2003. TECHNIQUE: AP and lateral views right knee FINDINGS: Small right knee effusion. Mild soft tissue swelling along the patellar tendon. Incidental surgical clips in the medial proximal lower leg. The alignment is normal without joint space narrowing seen. Marginal osteophytes are seen at the patella and tibial spines. XR/XR knee RT 2V IMPRESSION: Small knee effusion. Mild degenerative changes. No acute osseous abnormality is appreciated. Electronically signed by: Daniel Medina MD 10/11/2023 02:09 PM EDT RP Independent Historian Clinical information obtained from an independent historian. History obtained from or confirmed by: Spouse () External Record Review External record reviewed: Inpatient record, Office record, Outpatient record, Prior outpatient labs, Prior outpatient radiology, Primary care record and Outside ED record Prescription Management I considered prescription management with: Pain Medication and Antibiotic Chronic Conditions Patient?s care impacted by: Diabetes and Other (BPH) Social Determinants Patient?s care significantly limited by Social Determinants of Health including: Other Social Determinant of Health Critical Care Time Critical Care Time Critical Care Time: Yes Total Critical Care Time: 43 Attestation: Critical care time in the amount of 43 minutes has been provided to the patient in terms of direct patient care, frequent reevaluation, consultation with hospitalist and urologist, review and interpretation of medical data and results, and management of potentially life-threatening conditions. This is all outside of any medical procedures. Discharge Plan Discharge Clinical Impression: Acute prostatitis, Cystitis Patient Disposition: Admitted As Inpatient
[2023-10-11 11:54] LABS: MANUAL DIFF FLAG NO
[2023-10-11 11:55] LABS: Basophils Percent Auto 0.2 % (0-2); Eosinophils Absolute Auto 0.2 X10*3/uL (0.0-0.4); Hematocrit 35.1 % (42.0-52.0); Hemoglobin 11.8 g/dl (14.0-18.0); Imm Gran Abs Auto 0.04 X10*3/uL (0.00-0.03); Imm Gran Pct Auto 0.4 % (0.0-0.4); Lymphocytes Absolute Auto 2.9 X10*3/uL (1.2-4.9); Lymphocytes Percent Auto 27.9 % (20-40); Mean Corpuscular HGB Conc 33.6 g/dl (31.0-36.0); Mean Corpuscular Hemoglobin 28.4 pg (27.0-33.0); Mean Corpuscular Volume 84.4 fL (80.0-98.0); Mean Platelet Volume 8.6 fL (9.4-12.4); Monocytes Absolute Auto 0.9 X10*3/uL (0.1-1.2); Neutrophils Absolute Auto 6.2 x10*3/uL (2.0-8.3); Neutrophils Percent Auto 60.5 % (45-73); Platelet Count 250 X10*3/uL (160-400); Red Blood Count 4.16 X10*6/uL (4.60-5.80); Red Cell Distribution Width 15.2 % (11.0-16.0); White Blood Count 10.3 X10*3/uL (4.8-10.8)
[2023-10-11 11:56] LABS: Appearance Urine Cloudy; Color Urine Yellow; Glucose Urine UA Negative (Negative); Leukocyte Esterase Urine Large (3+) (Negative); Nitrite Urine Negative (Negative); PH 5.5 (5.0-9.0); Specific Gravity - Urine 1.025 (1.005-1.025); UMIC TRIGGER UACC YES; Urine Blood Negative (Negative); Urine Ketones Negative (Negative); Urine Protein Trace mg/dL (Neg-Trace)
[2023-10-11 11:58] LABS: Bacteria Urine None Seen (None Seen); Hyaline Casts Urine 0-2 /LPF (0-2); RBC Urine 0-2 /HPF (0-2); Squamous Epithelial Cell Urine 0-2 /HPF (0-2); UACC Culture Trigger YES; WBC Urine >50 /HPF (0-5)
[2023-10-11 12:10] LABS: Alanine Aminotransferase 13 U/L (0-40); Albumin Level 3.4 g/dL (3.5-5.0); Alkaline Phosphatase 93 U/L (39-117); Anion Gap 12 (12-20); Aspartate Amino Transferase 10 U/L (5-37); Bilirubin Total 0.3 mg/dL (0.0-1.0); Blood Urea Nitrogen 16 mg/dL (9-16); Calcium 9.4 mg/dL (8.4-10.2); Carbon Dioxide 24 mmol/L (22-29); Chloride 106 mmol/L (96-108); Creatinine Clr Calc Pharmacy 76.9; Estimated Glomerular Filt Rate > 60; Glucose Random 117 mg/dL (60-115); Potassium 3.9 mmol/L (3.3-5.1); Sodium 138 mmol/L (135-145); Total Protein 7.5 g/dL (6.5-8.0)
[2023-10-11 13:32] LABS: CT PCR NOT DETECTED (Not Detect.); NG PCR NOT DETECTED (Not Detect.)
--- NOTE | 2023-10-11 14:22 | MHC.EDTECH ---
blood cultures x2 ordered. first venipuncure difficult draw. 30 drops of blood counted into each culture bottle.
[2023-10-11] MEDS: Ketorolac Tromethamine 30 MG/ML VIAL IVPUSH (14:24)
[2023-10-11] MEDS: 0.9 % Sodium Chloride 1,000 ML 999 ML IV (14:25)
[2023-10-11] MEDS: levoFLOXacin/D5W 750 MG/150 ML PIGGYBACK 100 MG IV (14:29)
--- NOTE | 2023-10-11 14:32 | PC.NURSE ---
Pt presents to ED via home reports trouble urinating and bump near his genitals. Also reports right knee pain, has hx of arthritis. Alert and oriented, breathing even and unlabored, skin warm and dry.
[2023-10-11 14:38] LABS: Lactic Acid 0.7 mmol/L (0.5-2.0)
[2023-10-11 14:40] LABS: Glucose, Whole Blood 84 mg/dL (60-115)
--- NOTE | 2023-10-11 14:52 | P.HPHOSP_ITS ---
History of Present Illness Date of Service: 10/11/23 Chief Complaint: Prostate pain The 73-year-old male presents with a history of coronary artery disease (CAD) status post coronary artery bypass grafting (CABG), insulin-dependent diabetes mellitus, hypertension, mood disorder, benign prostatic hyperplasia (BPH), obstructive sleep apnea (DEANDRE) on CPAP, and gastroesophageal reflux disease. He was discharged from the hospital six weeks ago following treatment for a urinary tract infection (UTI) and acute kidney injury (WILLIAM). He now returns with persistent dysuria, particularly at the start of voiding, and experiences difficulty initiating urination, although he reports no blood in his urine. He also describes experiencing chills, especially at night. Urinalysis (UA) reveals positive leukocyte esterase and a high white blood cell (WBC) count, consistent with a UTI. A CT scan shows an enlarged prostate with findings suggestive of a possible abscess, along with bladder wall thickening. Testing for Chlamydia and Gonorrhea is negative. The patient is initiated on intravenous Levaquin after obtaining cultures. The clinical picture is suggestive of a recurrent UTI, potentially complicated by a prostatic abscess and bladder wall thickening. The persistent dysuria, difficulty initiating urination, and systemic symptoms like chills are concerning for an ongoing significant infection. The CT findings of an enlarged prostate with possible abscess and bladder wall thickening raise the possibility of complications beyond a simple UTI. Given his complex medical history, including CAD, diabetes, and recent WILLIAM, close monitoring and follow-up are essential. The presence of an abscess may require drainage, and a urology consultation would be appropriate to address the enlarged prostate and potential abscess. The bladder wall thickening may be due to chronic infection, inflammation, or other underlying conditions, warranting further evaluation. Review of Systems 2 Review of Systems: pain in the prostate, no fever. all other systems reviewed and are negative [facility] Medical History Type 2 diabetes mellitus with unspecified complications Sepsis Hyperthyroidism Multinodular thyroid HLD (hyperlipidemia) HTN (hypertension) Obesity NSTEMI (non-ST elevated myocardial infarction) CAD (coronary artery disease) Diabetes mellitus Myocardial infarct Family History Mother Cardiovascular disease Father Medical history unknown Sister Cancer Brother Cancer Surgical History History of esophagogastroduodenoscopy (EGD) Hx of colonoscopy Hx of ultrasound guided needle biopsy Hx of CABG (~07/2016) Social History Household Members: Spouse and Children Housing: House Do you presently have visiting nurse or other home services: No Alcohol intake: former Patient Tobacco Use Status: Former Tobacco user Smoked in Last 30 Days: No Use of substances other than those prescribed or required for medical reasons: No Advance Directives: No Advance Directives Information Provided: No service: No Current occupational status: unemployed Meds Allergies Allergy/AdvReac Type Severity Reaction Status Date / Time No Known Allergies Allergy Verified 10/11/23 10:13 [No Known Allergies*] Active Medications: Current Medications Levofloxacin (Levaquin) 750 mg in 150 mls @ 100 mls/hr IV ONCE ONE Stop: 10/11/23 15:41 Last Admin: 10/11/23 14:29 Dose: 100 mls/hr Sodium Chloride (Ns) 1,000 mls @ 999 mls/hr IV .Q1H1M EMELY Stop: 10/11/23 15:15 Last Admin: 10/11/23 14:25 Dose: 999 mls/hr Home Medications ?Medication ?Instructions ?Recorded ?Confirmed ?Last Taken ?Type escitalopram oxalate 10 mg tablet 10 mg PO DAILY 02/07/20 10/11/23 10/11/23 History metformin 1,000 mg tablet 1,000 mg PO DAILY 02/07/20 10/11/23 Unknown History insulin glargine 100 unit/mL (3 85 unit subcut DAILY 10/30/21 10/11/23 06/25/23 History mL) subcutaneous pen (Lantus Solostar U-100 Insulin) trazodone 100 mg tablet 100 mg PO BEDTIME 02/23/23 10/11/23 Unknown History amlodipine 10 mg tablet 10 mg PO DAILY 09/08/23 10/11/23 10/11/23 History aspirin 81 mg tablet,delayed 81 mg PO DAILY 09/08/23 10/11/23 10/11/23 History release ezetimibe 10 mg tablet 10 mg PO DAILY 09/08/23 10/11/23 10/11/23 History insulin lispro 100 unit/mL 16 unit subcut TIDAC 09/08/23 10/11/23 Unknown History subcutaneous pen (Humalog KwikPen (U-100) Insulin) irbesartan 150 mg tablet 150 mg PO DAILY 09/08/23 10/11/23 10/11/23 History isosorbide mononitrate 60 mg 60 mg PO DAILY 09/08/23 10/11/23 10/11/23 History tablet,extended release 24 hr rosuvastatin 20 mg tablet 20 mg PO DAILY 09/08/23 10/11/23 10/11/23 History dulaglutide 4.5 mg/0.5 mL 4.5 mg subcut FR 10/11/23 10/11/23 Unknown History subcutaneous pen injector (Trulicity) melatonin 3 mg tablet 3 mg PO BEDTIME PRN Sleep 10/11/23 10/11/23 Unknown History Physical Exam 2 Vital Signs and Narrative: Vital Signs: Last Vital Signs Temp 98.0 F 10/11/23 14:00 Pulse 69 10/11/23 14:00 Resp 17 10/11/23 14:00 BP 146/59 H 10/11/23 14:00 Pulse Ox 95 10/11/23 14:00 O2 Del Method Room Air 10/11/23 14:00 BMI result Body Mass Index 33.4 Const: Other: General: AO X 3, no acute distress Resp: CTA bilateral CVS: S1,S2,RRR GI: +BS, NT, no distention Skin: No rash : prostate exam defered Neuro: motor grossly intact Psych: appropriate affect Results Labs 10/11/23 11:47 10/11/23 11:47 Labs: Laboratory Results - last 24 hr 10/11/23 10/11/23 10/11/23 11:47 11:48 11:49 MCV 84.4 MCH 28.4 MCHC 33.6 RDW 15.2 Plt Count 250 D MPV 8.6 L Immature Gran % (Auto) 0.4 Neut % (Auto) 60.5 Lymph % (Auto) 27.9 [place] % (Auto) 9.0 Eos % (Auto) 2.0 Baso % (Auto) 0.2 Lymph # (Auto) 2.9 [place] # (Auto) 0.9 Eos # (Auto) 0.2 Baso # (Auto) 0.0 Abs Immat Gran (auto) 0.04 H Absolute Neuts (auto) 6.2 Absolute Nucleated RBC 0.000 Nucleated RBC % (auto) 0.0 Anion Gap 12 Estim Creat Clear Calc 76.9 Estimated GFR > 60 POC Glucose Random Glucose 117 H Lactic Acid Calcium 9.4 D Magnesium 2.0 Total Bilirubin 0.3 AST 10 ALT 13 Alkaline Phosphatase 93 Total Protein 7.5 Albumin 3.4 L Urine Color Yellow Urine Appearance Cloudy Urine pH 5.5 Ur Specific [place] 1.025 Urine Protein Trace Urine Glucose (UA) Negative Urine Ketones Negative Urine Blood Negative Urine Nitrite Negative Ur Leukocyte Esterase Large (3+) H Urine RBC 0-2 Urine WBC >50 H Ur Squamous Epith Cells 0-2 Urine Bacteria None Seen Hyaline Casts 0-2 Chlam trachomat DNA PCR NOT DETECTED N.gonorrhoeae DNA (PCR) NOT DETECTED 10/11/23 10/11/23 14:19 14:35 MCV MCH MCHC RDW Plt Count MPV Immature Gran % (Auto) Neut % (Auto) Lymph % (Auto) [place] % (Auto) Eos % (Auto) Baso % (Auto) Lymph # (Auto) [place] # (Auto) Eos # (Auto) Baso # (Auto) Abs Immat Gran (auto) Absolute Neuts (auto) Absolute Nucleated RBC Nucleated RBC % (auto) Anion Gap Estim Creat Clear Calc Estimated GFR POC Glucose 84 Random Glucose Lactic Acid 0.7 Calcium Magnesium Total Bilirubin AST ALT Alkaline Phosphatase Total Protein Albumin Urine Color Urine Appearance Urine pH Ur Specific [place] Urine Protein Urine Glucose (UA) Urine Ketones Urine Blood Urine Nitrite Ur Leukocyte Esterase Urine RBC Urine WBC Ur Squamous Epith Cells Urine Bacteria Hyaline Casts Chlam trachomat DNA PCR N.gonorrhoeae DNA (PCR) Imaging Radiologist's Impressions: Impressions Knee X-Ray 10/11/23 11:18 IMPRESSION: Small knee effusion. Mild degenerative changes. No acute osseous abnormality is appreciated. Electronically signed by: Daniel Medina MD 10/11/2023 02:09 PM EDT Abdomen/Pelvis CT 10/11/23 11:27 IMPRESSION: 1. Significant heterogeneous enlargement of the prostate gland, measuring up to 7.7 cm in axial dimension (previously 6.3 cm on exam from 09/08/2023). There appears to be multifocal regions of hypoattenuation centrally within the expanded prostate gland, potentially suggesting prostatic abscess formation. 2. There appears to be a degree of circumferential wall thickening of the urinary bladder (although the urinary bladder is not fully distended on this exam). These changes may indicate sequela of underlying urinary tract infection. Recommend correlation with urinalysis. 3. Diverticulosis without evidence of diverticulitis. Electronically signed by: Kiko Hoffman DO 10/11/2023 01:50 PM EDT RP Assessment and Plan (1) Prostatitis: Status: Acute Plan 73/m with CAD status post CABG, insulin-dependent diabetes mellitus, hypertension, mood disorder, BPH, DEANDRE on CPAP, gastroesophageal discharge 3 weeks ago with UTI and WILLIAM and now here with prostatitis Acute prostatitis, cystitis -IV levaquin -follow lecture -uro consult -morphine anabaptist DM-2 -Lantus (85 units in am at home) -SSI -hold metformin Hypertension -resume home meds HLD -statin Mood disorder -continue Celexa BPH -Doxazosin GERD -omeprazole CAD -continue ASA, metoprolol, imdur, statin DEANDRE - Continue CPAP at bedtime OA of R knee with chronic pain -APAP DVT prophylaxis: Lovenox Full code admission for at least 2 midnights for IV Abx for acute prostatitis Quality Stroke Does the patient have a stroke diagnosis?: No VTE Prior VTE?: No VTE Risk Level:: Medical - moderate - high VTE Device Contraindication: Treatment Not Indicated VTE Drug Contraindication: N/A - Med Ordered
--- NOTE | 2023-10-11 16:03 | PHA.MEDREC ---
Pharmacy Consult ? Medication Reconciliation Pharmacy has completed the medication reconciliation. Spoke with patient through an freelance interpreter/translator. He confirmed all medications. He reports he takes melatonin as needed. He claims he is still taking metformin but takes it once daily. is aware. He has not taken his trulicity in about a month since he has been hospitalized but confirmed it was the increased dose of 4.5. He confirmed Lantus 85 units and humalog 16 units TIDAC. He took his morning medications, he did not take insulin today.
[2023-10-11] MEDS: 0.9 % Sodium Chloride Flush 3 ML SYRINGE IVFLUSH (16:12)
[2023-10-11] MEDS: Enoxaparin Sodium 40 MG/0.4 ML SYRINGE SUBCUT (16:12)
[2023-10-11] MEDS: Morphine Sulfate 2 MG/ML CARTRIDGE IVPUSH (16:38)
--- NOTE | 2023-10-11 16:43 | PC.NURSE ---
medicated per MAR with PRN for 09/18 pain
[2023-10-11 17:34] LABS: Glucose, Whole Blood 121 mg/dL (60-115)
[2023-10-11 20:31] LABS: Glucose, Whole Blood 179 mg/dL (60-115)
[2023-10-11] MEDS: traZODone HCL 100 MG TABLET PO (20:32)
[2023-10-11] MEDS: Metoprolol Tartrate 50 MG TABLET PO (20:32)
[2023-10-11] MEDS: Pantoprazole Sodium 20 MG TABLET.DR 80 MG PO (20:32)
[2023-10-11] MEDS: Doxazosin Mesylate 2 MG TABLET 4 MG PO (20:33)
[2023-10-11] MEDS: Insulin Lispro 100 UNIT/ML 3 ML VIAL SUBCUT (20:34)
[2023-10-11] MEDS: cilostazoL 100 MG TABLET PO (20:34)
--- NOTE | 2023-10-11 20:43 | PC.NURSE ---
Patient is alert and oriented x3, pleasant and cooperative. Patient uses urinal independently, ambulates with a cane, gait is steady. Patient medicated per MAR, takes medications whole with water. Patient applied CPAP for DEANDRE. Call pro in patient's reach, plan of care ongoing.
[2023-10-12] VITALS (9 sets, daily range): BP systolic 114–146; BP diastolic 54–67; PULSE 73–85; RESP 16–20; TEMP 36.5–37.2; O2SAT 95–99; BMI 33.3
[2023-10-12] MEDS: Acetaminophen 325 MG TABLET 650 MG PO (02:05)
[2023-10-12] MEDS: Melatonin 3 MG TABLET 6 MG PO (02:05)
--- NOTE | 2023-10-12 02:17 | PC.NURSE ---
Pt requested pain medication for c/o knee pain and melatonin states I cannot sleep , medicated. Plan of care ongoing.
[2023-10-12 05:32] LABS: MANUAL DIFF FLAG NO
[2023-10-12 05:37] LABS: Basophils Percent Auto 0.2 % (0-2); Eosinophils Absolute Auto 0.1 X10*3/uL (0.0-0.4); Eosinophils Percent Auto 1.3 % (0-4); Hematocrit 35.7 % (42.0-52.0); Hemoglobin 11.5 g/dl (14.0-18.0); Imm Gran Abs Auto 0.03 X10*3/uL (0.00-0.03); Imm Gran Pct Auto 0.3 % (0.0-0.4); Lymphocytes Absolute Auto 2.3 X10*3/uL (1.2-4.9); Lymphocytes Percent Auto 21.7 % (20-40); Mean Corpuscular HGB Conc 32.2 g/dl (31.0-36.0); Mean Corpuscular Hemoglobin 27.7 pg (27.0-33.0); Mean Platelet Volume 8.8 fL (9.4-12.4); Monocytes Percent Auto 9.8 % (2-11); Neutrophils Absolute Auto 6.9 x10*3/uL (2.0-8.3); Neutrophils Percent Auto 66.7 % (45-73); Platelet Count 251 X10*3/uL (160-400); Red Blood Count 4.15 X10*6/uL (4.60-5.80); Red Cell Distribution Width 15.1 % (11.0-16.0); White Blood Count 10.4 X10*3/uL (4.8-10.8)
[2023-10-12 05:51] LABS: Anion Gap 13 (12-20); Blood Urea Nitrogen 14 mg/dL (9-16); Calcium 9.1 mg/dL (8.4-10.2); Carbon Dioxide 23 mmol/L (22-29); Chloride 105 mmol/L (96-108); Creatinine Clr Calc Pharmacy 72.1; Estimated Glomerular Filt Rate > 60; Glucose Random 123 mg/dL (60-115); Potassium 3.8 mmol/L (3.3-5.1); Sodium 137 mmol/L (135-145)
--- NOTE | 2023-10-12 07:04 | PC.NURSE ---
report recieved from previous RN, patient resting comfortably on stretcher, respirations even and unlabored, awaiting breakfast trays at this time. plan of care remains in place
[2023-10-12] MEDS: Morphine Sulfate 2 MG/ML CARTRIDGE IVPUSH (07:33)
[2023-10-12 07:34] LABS: Glucose, Whole Blood 120 mg/dL (60-115)
--- NOTE | 2023-10-12 07:37 | PC.NURSE ---
patient endorsing 9/10 pain in his penis, medicated per MAR, POC BGL 120, no insulin coverage needed for am.
[2023-10-12] MEDS: 0.9 % Sodium Chloride Flush 3 ML SYRINGE IVFLUSH ×3 (07:38→23:31)
--- NOTE | 2023-10-12 08:06 | PC.NURSE ---
billy provided with breakfast tray at this time.
[2023-10-12] MEDS: Isosorbide Mononitrate 60 MG TAB.ER.24H PO (08:46)
[2023-10-12] MEDS: Escitalopram Oxalate 10 MG TABLET PO (08:48)
[2023-10-12] MEDS: Ezetimibe 10 MG TABLET PO (08:48)
[2023-10-12] MEDS: Atorvastatin Calcium 80 MG TABLET PO (08:48)
[2023-10-12] MEDS: Valsartan 80 MG TABLET PO (08:48)
[2023-10-12] MEDS: Metoprolol Tartrate 50 MG TABLET PO ×2 (08:49→21:20)
[2023-10-12] MEDS: cilostazoL 100 MG TABLET PO ×2 (08:49→21:20)
[2023-10-12] MEDS: Aspirin Enteric Coated 81 MG TABLET.DR PO (08:50)
[2023-10-12] MEDS: amLODIPine Besylate 10 MG TABLET PO (08:50)
[2023-10-12] MEDS: Pantoprazole Sodium 20 MG TABLET.DR 80 MG PO ×2 (08:50→21:19)
[2023-10-12] MEDS: Insulin Glargine,Hum.rec.anlog 100 UNIT/ML 10 ML VIAL 45 UNIT SUBCUT (08:53)
[2023-10-12] MEDS: Phenazopyridine HCL 100 MG TABLET PO (11:18)
--- NOTE | 2023-10-12 11:54 | HO.PM.IMPN ---
Subjective Subjective Date of Service: 10/12/23 Interval History: f/u on prostatitis, still with pain with urination and rectal pain No fever, urine culture growing GNR, has constipation Physical Exam Vital Signs: Vital Signs: Last Vital Signs Temp 98.5 F 10/11/23 20:34 Pulse 85 10/12/23 08:49 Resp 20 10/11/23 22:23 BP 146/56 H 10/12/23 08:50 Pulse Ox 96 10/11/23 20:34 O2 Del Method Room Air 10/11/23 20:34 BMI result Body Mass Index 33.4 Const: Other: General: AO X 3, no acute distress Resp: CTA bilateral CVS: S1,S2,RRR GI: +BS, NT, no distention Skin: No rash : prostate exam defered Neuro: motor grossly intact Psych: appropriate affect Objective Data Active Medications Acetaminophen (Acetaminophen 325 Mg Tablet) 650 mg PO Q6H PRN PRN Reason: Pain, Mild (Pain Scale 1-3), fever or headache Last Admin: 10/12/23 02:05 Dose: 650 mg Documented By: VERITO Acetaminophen (Acetaminophen 325 Mg Tablet) 975 mg PO Q8H PRN PRN Reason: pain Amlodipine Besylate (Amlodipine Besylate 10 Mg Tablet) 10 mg PO DAILY [facility]; Protocol Last Admin: 10/12/23 08:50 Dose: 10 mg Documented By: RONAN Aspirin (Aspirin Enteric Coated 81 Mg Tablet.) 81 mg PO DAILY [facility] Last Admin: 10/12/23 08:50 Dose: 81 mg Documented By: RONAN Atorvastatin Calcium (Atorvastatin Calcium 80 Mg Tablet) 80 mg PO DAILY [facility] Last Admin: 10/12/23 08:48 Dose: 80 mg Documented By: RONAN Calcium Carbonate (Calcium Carbonate 750 Mg Tab.Chew) 750 mg PO Q4H PRN PRN Reason: Heartburn Cilostazol (Cilostazol 100 Mg Tablet) 100 mg PO BID [facility] Last Admin: 10/12/23 08:49 Dose: 100 mg Documented By: RONAN Doxazosin Mesylate (Doxazosin Mesylate 2 Mg Tablet) 4 mg PO BEDTIME [facility]; Protocol Last Admin: 10/11/23 20:33 Dose: 4 mg Documented By: CHIQUIS Ezetimibe (Ezetimibe 10 Mg Tablet) 10 mg PO DAILY [facility] Last Admin: 10/12/23 08:48 Dose: 10 mg Documented By: RONAN Enoxaparin Sodium (Enoxaparin Sodium 40 Mg/0.4 Ml Syringe) 40 mg SUBCUT Q24H [facility] Last Admin: 10/11/23 16:12 Dose: 40 mg Documented By: MARLA Escitalopram Oxalate (Escitalopram Oxalate 10 Mg Tablet) 10 mg PO DAILY [facility] Last Admin: 10/12/23 08:48 Dose: 10 mg Documented By: RONAN Glucose (Glucose Gel 15 Gm Gel..Gram.) 15 gm PO Q15M PRN; Protocol PRN Reason: per Hypoglycemia Standing Ord. Dextrose (D10) 250 mls @ 750 mls/hr IV Q15M PRN; Protocol PRN Reason: per Hypoglycemia Standing Ord. Levofloxacin (Levaquin) 750 mg in 150 mls @ 100 mls/hr IV Q24H [facility] Insulin Glargine (Insulin Glargine,Hum.Rec.Anlog 100 Unit/Ml 10 Ml Vial) 45 unit SUBCUT DAILY [facility] Last Admin: 10/12/23 08:53 Dose: 45 unit Documented By: RONAN Insulin Human Lispro (Insulin Lispro 100 Unit/Ml 3 Ml Vial) 0 unit SUBCUT QIDACHS [facility]; Protocol Last Admin: 10/12/23 07:38 Dose: Not Given Documented By: RONAN Non-Admin Reason: No Insulin Coverage Comments: order parameters not met Isosorbide Mononitrate (Isosorbide Mononitrate 60 Mg Tab.Er.24h) 60 mg PO DAILY [facility]; Protocol Last Admin: 10/12/23 08:46 Dose: 60 mg Documented By: RONAN Magnesium Hydroxide (Milk Of Magnesia 30 Ml Oral.Susp) 30 ml PO DAILY PRN PRN Reason: Constipation Melatonin (Melatonin 3 Mg Tablet) 6 mg PO BEDTIME PRN PRN Reason: Insomnia Last Admin: 10/12/23 02:05 Dose: 6 mg Documented By: VERITO Metoprolol Tartrate (Metoprolol Tartrate 50 Mg Tablet) 50 mg PO BID [facility]; Protocol Last Admin: 10/12/23 08:49 Dose: 50 mg Documented By: RONAN Morphine Sulfate (Morphine Sulfate 2 Mg/Ml Cartridge) 2 mg IVPUSH Q6H PRN; Protocol PRN Reason: Pain, Severe (Pain Scale 7-10) Last Admin: 10/12/23 07:33 Dose: 2 mg Documented By: RONAN Nitroglycerin (Nitroglycerin 0.4 Mg Tab.Subl) 0.4 mg SUBLINGUAL Q5M PRN PRN Reason: Chest Pain Ondansetron HCl (Ondansetron Hcl 4 Mg/2 Ml Vial) 4 mg IVPUSH Q8H PRN PRN Reason: Nausea and Vomiting Pantoprazole Sodium (Pantoprazole Sodium 20 Mg Tablet.Dr) 80 mg PO BID [facility] Last Admin: 10/12/23 08:50 Dose: 80 mg Documented By: RONAN Phenazopyridine HCl (Phenazopyridine Hcl 100 Mg Tablet) 100 mg PO TIDWM PRN PRN Reason: Dysuria Stop: 10/14/23 08:37 Last Admin: 10/12/23 11:18 Dose: 100 mg Documented By: RONAN Sodium Chloride (0.9 % Sodium Chloride Flush 3 Ml Syringe) [address] [facility] Last Admin: 10/12/23 07:38 Dose: 3 ml Documented By: RONAN Trazodone HCl (Trazodone Hcl 100 Mg Tablet) 100 mg PO BEDTIME [facility] Last Admin: 10/11/23 20:32 Dose: 100 mg Documented By: CHIQUIS Valsartan (Valsartan 80 Mg Tablet) 80 mg PO DAILY [facility] Last Admin: 10/12/23 08:48 Dose: 80 mg Documented By: RONAN Labs 10/12/23 05:19 10/12/23 05:19 Labs: Laboratory Results - last 24 hr 10/11/23 10/11/23 10/11/23 11:47 11:48 11:49 MCV 84.4 MCH 28.4 MCHC 33.6 RDW 15.2 Plt Count 250 D MPV 8.6 L Immature Gran % (Auto) 0.4 Neut % (Auto) 60.5 Lymph % (Auto) 27.9 [place] % (Auto) 9.0 Eos % (Auto) 2.0 Baso % (Auto) 0.2 Lymph # (Auto) 2.9 [place] # (Auto) 0.9 Eos # (Auto) 0.2 Baso # (Auto) 0.0 Abs Immat Gran (auto) 0.04 H Absolute Neuts (auto) 6.2 Absolute Nucleated RBC 0.000 Nucleated RBC % (auto) 0.0 Anion Gap 12 Estim Creat Clear Calc 76.9 Estimated GFR > 60 POC Glucose Random Glucose 117 H Lactic Acid Calcium 9.4 D Magnesium 2.0 Total Bilirubin 0.3 AST 10 ALT 13 Alkaline Phosphatase 93 Total Protein 7.5 Albumin 3.4 L Urine Color Yellow Urine Appearance Cloudy Urine pH 5.5 Ur Specific [place] 1.025 Urine Protein Trace Urine Glucose (UA) Negative Urine Ketones Negative Urine Blood Negative Urine Nitrite Negative Ur Leukocyte Esterase Large (3+) H Urine RBC 0-2 Urine WBC >50 H Ur Squamous Epith Cells 0-2 Urine Bacteria None Seen Hyaline Casts 0-2 Chlam trachomat DNA PCR NOT DETECTED N.gonorrhoeae DNA (PCR) NOT DETECTED 10/11/23 10/11/23 10/11/23 14:19 14:35 17:29 MCV MCH MCHC RDW Plt Count MPV Immature Gran % (Auto) Neut % (Auto) Lymph % (Auto) [place] % (Auto) Eos % (Auto) Baso % (Auto) Lymph # (Auto) [place] # (Auto) Eos # (Auto) Baso # (Auto) Abs Immat Gran (auto) Absolute Neuts (auto) Absolute Nucleated RBC Nucleated RBC % (auto) Anion Gap Estim Creat Clear Calc Estimated GFR POC Glucose 84 121 H Random Glucose Lactic Acid 0.7 Calcium Magnesium Total Bilirubin AST ALT Alkaline Phosphatase Total Protein Albumin Urine Color Urine Appearance Urine pH Ur Specific [place] Urine Protein Urine Glucose (UA) Urine Ketones Urine Blood Urine Nitrite Ur Leukocyte Esterase Urine RBC Urine WBC Ur Squamous Epith Cells Urine Bacteria Hyaline Casts Chlam trachomat DNA PCR N.gonorrhoeae DNA (PCR) 10/11/23 10/12/23 10/12/23 20:29 05:19 07:28 MCV 86.0 MCH 27.7 MCHC 32.2 RDW 15.1 Plt Count 251 MPV 8.8 L Immature Gran % (Auto) 0.3 Neut % (Auto) 66.7 Lymph % (Auto) 21.7 [place] % (Auto) 9.8 Eos % (Auto) 1.3 Baso % (Auto) 0.2 Lymph # (Auto) 2.3 [place] # (Auto) 1.0 Eos # (Auto) 0.1 Baso # (Auto) 0.0 Abs Immat Gran (auto) 0.03 Absolute Neuts (auto) 6.9 Absolute Nucleated RBC 0.000 Nucleated RBC % (auto) 0.0 Anion Gap 13 Estim Creat Clear Calc 72.1 Estimated GFR > 60 POC Glucose 179 H 120 H Random Glucose 123 H Lactic Acid Calcium 9.1 Magnesium Total Bilirubin AST ALT Alkaline Phosphatase Total Protein Albumin Urine Color Urine Appearance Urine pH Ur Specific [place] Urine Protein Urine Glucose (UA) Urine Ketones Urine Blood Urine Nitrite Ur Leukocyte Esterase Urine RBC Urine WBC Ur Squamous Epith Cells Urine Bacteria Hyaline Casts Chlam trachomat DNA PCR N.gonorrhoeae DNA (PCR) Microbiology Microbiology Results: Microbiology 10/11/23 Unknown Urine Culture - Preliminary Urine clean catch - Clean Catch Midstream Gram negative sharonda Assessment and Plan (1) Cystitis: Status: Acute (2) Acute prostatitis: Status: Acute (3) Prostatitis: Status: Acute (4) Osteoarthritis of knees, bilateral: Status: Acute Plan 73/m with CAD status post CABG, insulin-dependent diabetes mellitus, hypertension, mood disorder, BPH, DEANDRE on CPAP, gastroesophageal discharge 3 weeks ago with UTI and WILLIAM and now here with prostatitis Acute prostatitis, and possible prostate abscesscystitis -Culture = GNR, sensitivity pending - continue IV levaquin 10/11/23 -uro consult -morphine for pain DM-2 -Lantus 85 at HS, not Am per med rec -give Lantus 45 today in am if sugars high give additional at hs -SSI -hold metformin Hypertension -Norvasc, metoprolol, Imdur, valsartan HLD -statin Mood disorder -continue Celexa BPH -Doxazosin GERD -omeprazole CAD -continue ASA, metoprolol, imdur, statin DEANDRE - Continue CPAP at bedtime OA of R knee with chronic pain -APAP DVT prophylaxis: Lovenox Full code need for inpt: IV Abx for acute prostatitis Quality Stroke Does the patient have a stroke diagnosis?: No VTE Prior VTE?: No VTE Risk Level:: Medical - moderate - high VTE Device Contraindication: Treatment Not Indicated VTE Drug Contraindication: N/A - Med Ordered
[2023-10-12 11:59] LABS: Glucose, Whole Blood 214 mg/dL (60-115)
[2023-10-12] MEDS: Insulin Lispro 100 UNIT/ML 3 ML VIAL SUBCUT ×2 (12:01→17:35)
[2023-10-12] MEDS: levoFLOXacin/D5W 750 MG/150 ML PIGGYBACK 100 MG IV (13:55)
--- NOTE | 2023-10-12 14:16 | MHC.CLN ---
NUTRITION CONSULT FOR WEIGHT LOSS. REVIEW OF WEIGHT HX SHOWS -4.1% WEIGHT LOSS X 4 MONTHS AND -5.4% WEIGHT LOSS X ONE YEAR. WEIGHT LOSS NOT SIGNIFICANT. NO ADDITIONAL NUTRITION INTERVENTIONS AT THIS TIME.
[2023-10-12 16:12] LABS: Glucose, Whole Blood 165 mg/dL (60-115)
[2023-10-12] MEDS: Enoxaparin Sodium 40 MG/0.4 ML SYRINGE SUBCUT (17:35)
[2023-10-12 20:14] LABS: Glucose, Whole Blood 108 mg/dL (60-115)
[2023-10-12] MEDS: Doxazosin Mesylate 2 MG TABLET 4 MG PO (21:20)
[2023-10-12] MEDS: traZODone HCL 100 MG TABLET PO (21:20)
[2023-10-13 03:15] VITALS: BP 139/65; PULSE 67; RESP 17; TEMP 36.6; O2SAT 96
[2023-10-13] MEDS: Morphine Sulfate 2 MG/ML CARTRIDGE IVPUSH (04:45)
[2023-10-13 06:06] LABS: MANUAL DIFF FLAG NO
[2023-10-13 06:17] LABS: Basophils Percent Auto 0.2 % (0-2); Eosinophils Absolute Auto 0.1 X10*3/uL (0.0-0.4); Eosinophils Percent Auto 0.8 % (0-4); Hematocrit 36.5 % (42.0-52.0); Imm Gran Abs Auto 0.04 X10*3/uL (0.00-0.03); Imm Gran Pct Auto 0.4 % (0.0-0.4); Lymphocytes Absolute Auto 2.2 X10*3/uL (1.2-4.9); Lymphocytes Percent Auto 23.8 % (20-40); Mean Corpuscular HGB Conc 32.9 g/dl (31.0-36.0); Mean Corpuscular Volume 85.1 fL (80.0-98.0); Mean Platelet Volume 8.9 fL (9.4-12.4); Neutrophils Absolute Auto 5.8 x10*3/uL (2.0-8.3); Neutrophils Percent Auto 63.8 % (45-73); Platelet Count 300 X10*3/uL (160-400); Red Blood Count 4.29 X10*6/uL (4.60-5.80); Red Cell Distribution Width 14.9 % (11.0-16.0); White Blood Count 9.1 X10*3/uL (4.8-10.8)
[2023-10-13 06:24] LABS: Anion Gap 13 (12-20); Blood Urea Nitrogen 13 mg/dL (9-16); Calcium 9.4 mg/dL (8.4-10.2); Carbon Dioxide 23 mmol/L (22-29); Chloride 104 mmol/L (96-108); Creatinine Clr Calc Pharmacy 72.7; Estimated Glomerular Filt Rate > 60; Glucose Random 136 mg/dL (60-115); Potassium 3.8 mmol/L (3.3-5.1); Sodium 136 mmol/L (135-145)
[2023-10-13 07:26] LABS: Glucose, Whole Blood 147 mg/dL (60-115)
[2023-10-13] MEDS: Metoprolol Tartrate 50 MG TABLET PO ×2 (07:30→20:54)
[2023-10-13] MEDS: Valsartan 80 MG TABLET PO (07:30)
[2023-10-13] MEDS: Atorvastatin Calcium 80 MG TABLET PO (07:30)
[2023-10-13] MEDS: cilostazoL 100 MG TABLET PO ×2 (07:30→20:54)
[2023-10-13] MEDS: Pantoprazole Sodium 20 MG TABLET.DR 80 MG PO ×2 (07:30→20:52)
[2023-10-13] MEDS: Milk of Magnesia 30 ML ORAL.SUSP PO (07:30)
[2023-10-13] MEDS: Isosorbide Mononitrate 60 MG TAB.ER.24H PO (07:30)
[2023-10-13] MEDS: Ezetimibe 10 MG TABLET PO (07:30)
[2023-10-13] MEDS: amLODIPine Besylate 10 MG TABLET PO (07:31)
[2023-10-13] MEDS: Insulin Glargine,Hum.rec.anlog 100 UNIT/ML 10 ML VIAL 45 UNIT SUBCUT (07:31)
[2023-10-13] MEDS: Escitalopram Oxalate 10 MG TABLET PO (07:31)
[2023-10-13] MEDS: Aspirin Enteric Coated 81 MG TABLET.DR PO (07:31)
[2023-10-13] MEDS: 0.9 % Sodium Chloride Flush 3 ML SYRINGE IVFLUSH ×3 (07:34→23:36)
[2023-10-13 07:44] VITALS: BP 162/74; PULSE 77; RESP 18; TEMP 36.5; O2SAT 96
--- NOTE | 2023-10-13 07:45 | PM.UROCN ---
History of Present Illness Consult details Consult date: 10/13/23 Narrative: Len is a 73 year old male presented with c/o's of dysuria, h/o prostatitis. Spoke to patient with certified solutions architect consultant present. CTAP suggestive of prostatic abscess. Pt clinically improving on IV Levaquin Review of Systems Review of Systems: Yes all other systems are reviewed and are negative Constitutional: Constitutional: Reports no additional constitutional complaints Eyes: Eyes: Reports no additional eye complaints ENT: Reports system reviewed and no additional complaints, except as documented Cardiovascular: Cardiovascular: Reports no additional cardiovascular complaints Respiratory: Respiratory: Reports no additional respiratory complaints Gastrointestinal: Gastrointestinal: Reports no additional gastrointestinal complaints Genitourinary: Genitourinary: Reports as per HPI Musculoskeletal: Musculoskeletal: Reports no additional musculoskeletal complaints Integumentary/Breasts: Skin/Breast: Reports system reviewed and no additional complaints, except as docu Neurologic: Reports system reviewed and no additional complaints, except as documented Psychiatric: Psychiatric: Reports no additional psychiatric complaints Endocrine: Endocrine: Reports no additional endocrine complaints Hematologic/Lymphatic: Hematologic/Lymphatic: Reports no additional hematologic/lymphatic complaints Allergic/Immunologic: Allergic/Immunologic: Reports no additional allergic/immunologic complaints PMFSH Past Medical History Medical History Type 2 diabetes mellitus with unspecified complications Sepsis Hyperthyroidism Multinodular thyroid HLD (hyperlipidemia) HTN (hypertension) Obesity NSTEMI (non-ST elevated myocardial infarction) CAD (coronary artery disease) Diabetes mellitus Myocardial infarct Family History Family History Mother Cardiovascular disease Father Medical history unknown Sister Cancer Brother Cancer Surgical History Surgical History History of esophagogastroduodenoscopy (EGD) Hx of colonoscopy Hx of ultrasound guided needle biopsy Hx of CABG (~07/2016) Social History Social History Household Members: Family Housing: Apartment Do you presently have visiting nurse or other home services: Yes Alcohol intake: former Patient Tobacco Use Status: Former Tobacco user service: No Current occupational status: unemployed Meds Allergies Allergy/AdvReac Type Severity Reaction Status Date / Time No Known Allergies Allergy Verified 10/11/23 10:13 [No Known Allergies*] Active Medications: Current Medications Acetaminophen (Acetaminophen 325 Mg Tablet) 650 mg PO Q6H PRN PRN Reason: Pain, Mild (Pain Scale 1-3), fever or headache Last Admin: 10/12/23 02:05 Dose: 650 mg Acetaminophen (Acetaminophen 325 Mg Tablet) 975 mg PO Q8H PRN PRN Reason: pain Amlodipine Besylate (Amlodipine Besylate 10 Mg Tablet) 10 mg PO DAILY [facility]; Protocol Last Admin: 10/13/23 07:31 Dose: 10 mg Aspirin (Aspirin Enteric Coated 81 Mg Tablet.Dr) 81 mg PO DAILY [facility] Last Admin: 10/13/23 07:31 Dose: 81 mg Atorvastatin Calcium (Atorvastatin Calcium 80 Mg Tablet) 80 mg PO DAILY [facility] Last Admin: 10/13/23 07:30 Dose: 80 mg Calcium Carbonate (Calcium Carbonate 750 Mg Tab.Chew) 750 mg PO Q4H PRN PRN Reason: Heartburn Cilostazol (Cilostazol 100 Mg Tablet) 100 mg PO BID [facility] Last Admin: 10/13/23 07:30 Dose: 100 mg Doxazosin Mesylate (Doxazosin Mesylate 2 Mg Tablet) 4 mg PO BEDTIME [facility]; Protocol Last Admin: 10/12/23 21:20 Dose: 4 mg Ezetimibe (Ezetimibe 10 Mg Tablet) 10 mg PO DAILY [facility] Last Admin: 10/13/23 07:30 Dose: 10 mg Enoxaparin Sodium (Enoxaparin Sodium 40 Mg/0.4 Ml Syringe) 40 mg SUBCUT Q24H [facility] Last Admin: 10/12/23 17:35 Dose: 40 mg Escitalopram Oxalate (Escitalopram Oxalate 10 Mg Tablet) 10 mg PO DAILY [facility] Last Admin: 10/13/23 07:31 Dose: 10 mg Glucose (Glucose Gel 15 Gm Gel..Gram.) 15 gm PO Q15M PRN; Protocol PRN Reason: per Hypoglycemia Standing Ord. Dextrose (D10) 250 mls @ 750 mls/hr IV Q15M PRN; Protocol PRN Reason: per Hypoglycemia Standing Ord. Levofloxacin (Levaquin) 750 mg in 150 mls @ 100 mls/hr IV Q24H [facility] Last Infusion: 10/12/23 17:26 Dose: Infused Insulin Glargine (Insulin Glargine,Hum.Rec.Anlog 100 Unit/Ml 10 Ml Vial) 45 unit SUBCUT DAILY [facility] Last Admin: 10/13/23 07:31 Dose: 45 unit Insulin Human Lispro (Insulin Lispro 100 Unit/Ml 3 Ml Vial) 0 unit SUBCUT QIDACHS [facility]; Protocol Last Admin: 10/13/23 07:27 Dose: Not Given Isosorbide Mononitrate (Isosorbide Mononitrate 60 Mg Tab.Er.24h) 60 mg PO DAILY [facility]; Protocol Last Admin: 10/13/23 07:30 Dose: 60 mg Magnesium Hydroxide (Milk Of Magnesia 30 Ml Oral.Susp) 30 ml PO DAILY PRN PRN Reason: Constipation Last Admin: 10/13/23 07:30 Dose: 30 ml Melatonin (Melatonin 3 Mg Tablet) 6 mg PO BEDTIME PRN PRN Reason: Insomnia Last Admin: 10/12/23 02:05 Dose: 6 mg Metoprolol Tartrate (Metoprolol Tartrate 50 Mg Tablet) 50 mg PO BID [facility]; Protocol Last Admin: 10/13/23 07:30 Dose: 50 mg Morphine Sulfate (Morphine Sulfate 2 Mg/Ml Cartridge) 2 mg IVPUSH Q6H PRN; Protocol PRN Reason: Pain, Severe (Pain Scale 7-10) Last Admin: 10/13/23 04:45 Dose: 2 mg Nitroglycerin (Nitroglycerin 0.4 Mg Tab.Subl) 0.4 mg SUBLINGUAL Q5M PRN PRN Reason: Chest Pain Ondansetron HCl (Ondansetron Hcl 4 Mg/2 Ml Vial) 4 mg IVPUSH Q8H PRN PRN Reason: Nausea and Vomiting Pantoprazole Sodium (Pantoprazole Sodium 20 Mg Tablet.Dr) 80 mg PO BID [facility] Last Admin: 10/13/23 07:30 Dose: 80 mg Phenazopyridine HCl (Phenazopyridine Hcl 100 Mg Tablet) 100 mg PO TIDWM PRN PRN Reason: Dysuria Stop: 10/14/23 08:37 Last Admin: 10/12/23 11:18 Dose: 100 mg Sodium Chloride (0.9 % Sodium Chloride Flush 3 Ml Syringe) 3 ml IVFLUSH QSHIFT [facility] Last Admin: 10/13/23 07:34 Dose: 3 ml Trazodone HCl (Trazodone Hcl 100 Mg Tablet) 100 mg PO BEDTIME [facility] Last Admin: 10/12/23 21:20 Dose: 100 mg Valsartan (Valsartan 80 Mg Tablet) 80 mg PO DAILY [facility] Last Admin: 10/13/23 07:30 Dose: 80 mg Home Medications ?Medication ?Instructions ?Recorded ?Confirmed ?Last Taken ?Type escitalopram oxalate 10 mg tablet 10 mg PO DAILY 02/07/20 10/11/23 10/11/23 History metformin 1,000 mg tablet 1,000 mg PO DAILY 02/07/20 10/11/23 Unknown History insulin glargine 100 unit/mL (3 85 unit subcut DAILY 10/30/21 10/11/23 06/25/23 History mL) subcutaneous pen (Lantus Solostar U-100 Insulin) trazodone 100 mg tablet 100 mg PO BEDTIME 02/23/23 10/11/23 Unknown History amlodipine 10 mg tablet 10 mg PO DAILY 09/08/23 10/11/23 10/11/23 History aspirin 81 mg tablet,delayed 81 mg PO DAILY 09/08/23 10/11/23 10/11/23 History release ezetimibe 10 mg tablet 10 mg PO DAILY 09/08/23 10/11/23 10/11/23 History insulin lispro 100 unit/mL 16 unit subcut TIDAC 09/08/23 10/11/23 Unknown History subcutaneous pen (Humalog KwikPen (U-100) Insulin) irbesartan 150 mg tablet 150 mg PO DAILY 09/08/23 10/11/23 10/11/23 History isosorbide mononitrate 60 mg 60 mg PO DAILY 09/08/23 10/11/23 10/11/23 History tablet,extended release 24 hr rosuvastatin 20 mg tablet 20 mg PO DAILY 09/08/23 10/11/23 10/11/23 History dulaglutide 4.5 mg/0.5 mL 4.5 mg subcut FR 10/11/23 10/11/23 Unknown History subcutaneous pen injector (Trulicity) melatonin 3 mg tablet 3 mg PO BEDTIME PRN Sleep 10/11/23 10/11/23 Unknown History Physical Exam Vital Signs: Vital Signs: Last Vital Signs Temp 97.8 F 10/13/23 03:15 Pulse 67 10/13/23 03:15 Resp 17 10/13/23 03:15 BP 139/65 10/13/23 03:15 Pulse Ox 96 10/13/23 03:15 O2 Del Method CPAP 10/13/23 03:15 BMI result Body Mass Index 33.3 Const: General: healthy appearing, no acute distress and well developed Nutritional Appearance: overweight Orientation/consciousness: patient oriented x3 HEENT: Head: Yes normocephalic and Yes atraumatic Eyes: Conjunctivae: conjunctivae normal Neck: Neck: Yes normal visual inspection Chest: Chest palpation & inspection: normal inspection of the chest Resp: Effort & Inspection: normal respiratory effort Cardio: Rate: regular rate GI: Inspection: Yes normal to inspection Palpation (GI): Soft to palpation Neuro: General: patient oriented x3 Psych: Appearance: grossly normal Affect: normal affect Results Labs 10/13/23 05:24 10/13/23 05:24 Labs: Abnormal lab results 10/12/23 10/12/23 10/13/23 Range/Units 11:56 16:05 05:24 RBC 4.29 L (4.60-5.80) X10*6/uL Hgb 12.0 L (14.0-18.0) g/dl Hct 36.5 L (42.0-52.0) % MPV 8.9 L (9.4-12.4) fL Abs Immat Gran (auto) 0.04 H (0.00-0.03) X10*3/uL POC Glucose 214 H 165 H (60-115) mg/dL Random Glucose 136 H (60-115) mg/dL 10/13/23 Range/Units 07:21 RBC (4.60-5.80) X10*6/uL Hgb (14.0-18.0) g/dl Hct (42.0-52.0) % MPV (9.4-12.4) fL Abs Immat Gran (auto) (0.00-0.03) X10*3/uL POC Glucose 147 H (60-115) mg/dL Random Glucose (60-115) mg/dL Short CBC 10/13/23 Range/Units 05:24 WBC 9.1 (4.8-10.8) X10*3/uL Hgb 12.0 L (14.0-18.0) g/dl Hct 36.5 L (42.0-52.0) % Plt Count 300 (160-400) X10*3/uL BMP 10/13/23 05:24 Sodium 136 Potassium 3.8 Chloride 104 Carbon Dioxide 23 BUN 13 Creatinine 0.94 Calcium 9.4 Urine 10/11/23 Range/Units 11:49 Urine Color Yellow Urine Appearance Cloudy Urine pH 5.5 (5.0-9.0) Ur Specific [place] 1.025 (1.005-1.025) Urine Protein Trace (Neg-Trace) mg/dL Urine Glucose (UA) Negative (Negative) mg/dL All other labs normal. Assessment and Plan (1) Prostatitis: Status: Acute (2) Prostatic abscess: Status: Acute Plan prostatic abscess. urine c/s ecoli Pt clinically improving on IV Levaquin. DC on PO abx, he will need 21 day course of therapy Recommend start flomax 0.4 mg daily and avodart 0.5 mg daily or proscar 5 mg Procedures Date of Service Date of Service: 10/13/23
--- NOTE | 2023-10-13 09:11 | MHC.CM.PN ---
PATIENT LIVES WITH AND ONE OF HIS DAUGHTERS. HE USES A CANE AT BASELINE AND CPAP AT NIGHT. NO O2 NEEDS DURING THE DAY. PATIENT REPORTS HAVING [facility] FOR HOME P.T. TWICE WEEKLY BUT IS UNABLE TO RECALL THE AGENCY. REFERRAL TO NA TO INQUIRE. PATIENT REPORTS THAT DAUGHTER (CLEM) IS HCP AND A COPY IS REQUESTED. HE HOPES TO RETURN HOME WITH HIS [facility]. IMM 10/12 COPY IN CHART.
[2023-10-13] MEDS: Acetaminophen 325 MG TABLET 650 MG PO (09:26)
[2023-10-13] MEDS: Phenazopyridine HCL 100 MG TABLET PO ×2 (09:27→21:02)
--- NOTE | 2023-10-13 09:47 | MHC.CM.PN ---
[facility] CONFIRMED THAT PATIENT IS UNDER THEIR SERVICE FOR SN AND PT
[2023-10-13 11:15] LABS: Glucose, Whole Blood 200 mg/dL (60-115)
[2023-10-13] MEDS: Finasteride 5 MG TABLET PO (11:31)
[2023-10-13] MEDS: Docusate Sodium 100 MG CAPSULE PO ×2 (11:31→20:54)
[2023-10-13] MEDS: Insulin Lispro 100 UNIT/ML 3 ML VIAL SUBCUT ×3 (11:31→21:01)
[2023-10-13] MEDS: levoFLOXacin/D5W 750 MG/150 ML PIGGYBACK 100 MG IV (13:19)
--- NOTE | 2023-10-13 14:13 | HO.PM.IMPN ---
Subjective Subjective Date of Service: 10/13/23 Interval History: f/u on prostatitis Review of Systems pain with urination constipation urine culture growing GNR Physical Exam Vital Signs: Vital Signs: Last Vital Signs Temp 97.7 F 10/13/23 07:44 Pulse 77 10/13/23 07:44 Resp 18 10/13/23 07:44 BP 162/74 H 10/13/23 07:44 Pulse Ox 96 10/13/23 07:44 O2 Del Method Room Air 10/13/23 07:44 BMI result Body Mass Index 33.3 General: AO X 3, no acute distress Resp: CTA bilateral CVS: S1,S2,RRR GI: +BS, NT, no distention Skin: No rash : prostate exam defered Neuro: motor grossly intact Psych: appropriate affect Objective Data Active Medications Acetaminophen (Acetaminophen 325 Mg Tablet) 650 mg PO Q6H PRN PRN Reason: Pain, Mild (Pain Scale 1-3), fever or headache Last Admin: 10/13/23 09:26 Dose: 650 mg Documented By: RENETTA Acetaminophen (Acetaminophen 325 Mg Tablet) 975 mg PO Q8H PRN PRN Reason: pain Amlodipine Besylate (Amlodipine Besylate 10 Mg Tablet) 10 mg PO DAILY [facility]; Protocol Last Admin: 10/13/23 07:31 Dose: 10 mg Documented By: RENETTA Aspirin (Aspirin Enteric Coated 81 Mg Tablet.) 81 mg PO DAILY [facility] Last Admin: 10/13/23 07:31 Dose: 81 mg Documented By: RENETTA Atorvastatin Calcium (Atorvastatin Calcium 80 Mg Tablet) 80 mg PO DAILY [facility] Last Admin: 10/13/23 07:30 Dose: 80 mg Documented By: RENETTA Calcium Carbonate (Calcium Carbonate 750 Mg Tab.Chew) 750 mg PO Q4H PRN PRN Reason: Heartburn Cilostazol (Cilostazol 100 Mg Tablet) 100 mg PO BID [facility] Last Admin: 10/13/23 07:30 Dose: 100 mg Documented By: RENETTA Docusate Sodium (Docusate Sodium 100 Mg Capsule) 100 mg PO BID [facility] Last Admin: 10/13/23 11:31 Dose: 100 mg Documented By: RENETTA Doxazosin Mesylate (Doxazosin Mesylate 2 Mg Tablet) 8 mg PO BEDTIME [facility]; Protocol Ezetimibe (Ezetimibe 10 Mg Tablet) 10 mg PO DAILY [facility] Last Admin: 10/13/23 07:30 Dose: 10 mg Documented By: RENETTA Enoxaparin Sodium (Enoxaparin Sodium 40 Mg/0.4 Ml Syringe) 40 mg SUBCUT Q24H [facility] Last Admin: 10/12/23 17:35 Dose: 40 mg Documented By: AV Escitalopram Oxalate (Escitalopram Oxalate 10 Mg Tablet) 10 mg PO DAILY [facility] Last Admin: 10/13/23 07:31 Dose: 10 mg Documented By: RENETTA Finasteride (Finasteride 5 Mg Tablet) 5 mg PO DAILY [facility] Last Admin: 10/13/23 11:31 Dose: 5 mg Documented By: RENETTA Glucose (Glucose Gel 15 Gm Gel..Gram.) 15 gm PO Q15M PRN; Protocol PRN Reason: per Hypoglycemia Standing Ord. Dextrose (D10) 250 mls @ 750 mls/hr IV Q15M PRN; Protocol PRN Reason: per Hypoglycemia Standing Ord. Levofloxacin (Levaquin) 750 mg in 150 mls @ 100 mls/hr IV Q24H [facility] Last Admin: 10/13/23 13:19 Dose: 100 mls/hr Documented By: RENETTA Insulin Glargine (Insulin Glargine,Hum.Rec.Anlog 100 Unit/Ml 10 Ml Vial) 45 unit SUBCUT DAILY [facility] Last Admin: 10/13/23 07:31 Dose: 45 unit Documented By: RENETTA Insulin Human Lispro (Insulin Lispro 100 Unit/Ml 3 Ml Vial) 0 unit SUBCUT QIDACHS [facility]; Protocol Last Admin: 10/13/23 11:31 Dose: 2 unit Documented By: RENETTA Isosorbide Mononitrate (Isosorbide Mononitrate 60 Mg Tab.Er.24h) 60 mg PO DAILY [facility]; Protocol Last Admin: 10/13/23 07:30 Dose: 60 mg Documented By: RENETTA Magnesium Hydroxide (Milk Of Magnesia 30 Ml Oral.Susp) 30 ml PO DAILY PRN PRN Reason: Constipation Last Admin: 10/13/23 07:30 Dose: 30 ml Documented By: RENETTA Melatonin (Melatonin 3 Mg Tablet) 6 mg PO BEDTIME PRN PRN Reason: Insomnia Last Admin: 10/12/23 02:05 Dose: 6 mg Documented By: VERITO Metoprolol Tartrate (Metoprolol Tartrate 50 Mg Tablet) 50 mg PO BID [facility]; Protocol Last Admin: 10/13/23 07:30 Dose: 50 mg Documented By: RENETTA Morphine Sulfate (Morphine Sulfate 2 Mg/Ml Cartridge) 2 mg IVPUSH Q6H PRN; Protocol PRN Reason: Pain, Severe (Pain Scale 7-10) Last Admin: 10/13/23 04:45 Dose: 2 mg Documented By: AV Nitroglycerin (Nitroglycerin 0.4 Mg Tab.Subl) 0.4 mg SUBLINGUAL Q5M PRN PRN Reason: Chest Pain Ondansetron HCl (Ondansetron Hcl 4 Mg/2 Ml Vial) 4 mg IVPUSH Q8H PRN PRN Reason: Nausea and Vomiting Pantoprazole Sodium (Pantoprazole Sodium 20 Mg Tablet.Dr) 80 mg PO BID [facility] Last Admin: 10/13/23 07:30 Dose: 80 mg Documented By: RENETTA Phenazopyridine HCl (Phenazopyridine Hcl 100 Mg Tablet) 100 mg PO TIDWM PRN PRN Reason: Dysuria Stop: 10/14/23 08:37 Last Admin: 10/13/23 09:27 Dose: 100 mg Documented By: RENETTA Sodium Chloride (0.9 % Sodium Chloride Flush 3 Ml Syringe) 3 ml IVFLUSH QSHIFT [facility] Last Admin: 10/13/23 07:34 Dose: 3 ml Documented By: RENETTA Trazodone HCl (Trazodone Hcl 100 Mg Tablet) 100 mg PO BEDTIME [facility] Last Admin: 10/12/23 21:20 Dose: 100 mg Documented By: AV Valsartan (Valsartan 80 Mg Tablet) 80 mg PO DAILY [facility] Last Admin: 10/13/23 07:30 Dose: 80 mg Documented By: RENETTA Labs 10/13/23 05:24 10/13/23 05:24 Labs: Laboratory Results - last 24 hr 10/12/23 10/12/23 10/13/23 16:05 20:10 05:24 MCV 85.1 MCH 28.0 MCHC 32.9 RDW 14.9 Plt Count 300 MPV 8.9 L Immature Gran % (Auto) 0.4 Neut % (Auto) 63.8 Lymph % (Auto) 23.8 [place] % (Auto) 11.0 Eos % (Auto) 0.8 Baso % (Auto) 0.2 Lymph # (Auto) 2.2 [place] # (Auto) 1.0 Eos # (Auto) 0.1 Baso # (Auto) 0.0 Abs Immat Gran (auto) 0.04 H Absolute Neuts (auto) 5.8 Absolute Nucleated RBC 0.000 Nucleated RBC % (auto) 0.0 Anion Gap 13 Estim Creat Clear Calc 72.7 Estimated GFR > 60 POC Glucose 165 H 108 Random Glucose 136 H Calcium 9.4 10/13/23 10/13/23 07:21 11:11 MCV MCH MCHC RDW Plt Count MPV Immature Gran % (Auto) Neut % (Auto) Lymph % (Auto) [place] % (Auto) Eos % (Auto) Baso % (Auto) Lymph # (Auto) [place] # (Auto) Eos # (Auto) Baso # (Auto) Abs Immat Gran (auto) Absolute Neuts (auto) Absolute Nucleated RBC Nucleated RBC % (auto) Anion Gap Estim Creat Clear Calc Estimated GFR POC Glucose 147 H 200 H Random Glucose Calcium Microbiology Microbiology Results: Microbiology 10/11/23 Unknown Urine Culture - Final Urine clean catch - Clean Catch Midstream Escherichia coli 10/11/23 14:08 Blood Culture - Preliminary Blood - Venous No growth after 24 hours. 10/11/23 14:18 Blood Culture - Preliminary Blood - Venous No growth after 24 hours. Assessment and Plan (1) Cystitis: Status: Acute (2) Acute prostatitis: Status: Acute (3) Prostatitis: Status: Acute (4) Osteoarthritis of knees, bilateral: Status: Acute Plan 73/m with CAD status post CABG, insulin-dependent diabetes mellitus, hypertension, mood disorder, BPH, DEANDRE on CPAP, gastroesophageal discharge 3 weeks ago with UTI and WILLIAM and now here with prostatitis Acute prostatitis, and possible prostate abscesscystitis Culture = GNR, sensitivity pending ct abd-prostatic abscess/ degree of circumferential wall thickening of the urinary bladder. continue iv levaquin ,flomax,proscar,morphine for pain. urology eval noted-continue above. DM-2 with hyperglycemia : fs 108-200's Lantus and fs with SSI,hold metformin Hypertension-Norvasc, metoprolol, Imdur, valsartan HLD-statin Mood disorder-continue Celexa BPH-Doxazosin GERD-omeprazole CAD-continue ASA, metoprolol, imdur, statin DEANDRE- Continue CPAP at bedtime OA of R knee with chronic pain-APAP DVT prophylaxis: Lovenox Full code need for inpt: IV Abx for acute prostatitis- need iv antibiotics ,cultures pending ,need urology followup. Quality Stroke Does the patient have a stroke diagnosis?: No VTE Prior VTE?: No VTE Risk Level:: Medical - moderate - high VTE Device Contraindication: Treatment Not Indicated VTE Drug Contraindication: N/A - Med Ordered
[2023-10-13 15:58] VITALS: BP 153/71; PULSE 88; RESP 18; TEMP 36.6; O2SAT 97
[2023-10-13 16:27] LABS: Glucose, Whole Blood 215 mg/dL (60-115)
[2023-10-13] MEDS: Enoxaparin Sodium 40 MG/0.4 ML SYRINGE SUBCUT (16:36)
[2023-10-13 20:00] VITALS: BP 148/64; PULSE 96; RESP 14; TEMP 37; O2SAT 98
[2023-10-13 20:24] LABS: Glucose, Whole Blood 162 mg/dL (60-115)
[2023-10-13] MEDS: Doxazosin Mesylate 2 MG TABLET 8 MG PO (20:53)
[2023-10-13] MEDS: traZODone HCL 100 MG TABLET PO (20:54)
--- NOTE | 2023-10-13 20:56 | PM.EVENT ---
Event Note Date of Service: 10/13/23 Event Note: Reported by RN that patient had a mechanical fall in the restroom. He slipped on his urine and fell. Did not lose consciousness prior to the fall. No chest pain or palpitations prior to the fall. Landed on his right knee and has been complaining of right knee pain since the fall. Obtaining x-rays Time Spent With Patient Time: Total time managing care of this patient today ____ minutes.
[2023-10-13] MEDS: Acetaminophen 325 MG TABLET 975 MG PO (21:03)
[2023-10-13 23:41] VITALS: PULSE 74; RESP 17; O2SAT 93
--- NOTE | 2023-10-14 03:14 | PC.NURSE ---
This RN notified by [employer] that patient was found in bathroom kneeling on right knee. Patient had a mechanical fall slipping on his urine. Since the occurrence patient c/o 10/10 right knee pain. Denies hitting head, and no loc. Hospitalist notified and arrived in room to see patient. X-rays ordered. Patient walks independently with steady gait. Discussed with patient to ring the pro so that he can have a stand by assist when walking. Patient is A&O , and verbally understands. Bed alarm on for safety. Vital signs stable, patient resting at present time , call pro within reach.
[2023-10-14 03:50] VITALS: BP 144/69; PULSE 84; RESP 14; TEMP 36.4; O2SAT 96
[2023-10-14] MEDS: Morphine Sulfate 2 MG/ML CARTRIDGE IVPUSH (04:32)
[2023-10-14 06:19] LABS: MANUAL DIFF FLAG NO
[2023-10-14 06:28] LABS: Basophils Percent Auto 0.1 % (0-2); Eosinophils Absolute Auto 0.1 X10*3/uL (0.0-0.4); Hematocrit 33.6 % (42.0-52.0); Hemoglobin 11.2 g/dl (14.0-18.0); Imm Gran Abs Auto 0.04 X10*3/uL (0.00-0.03); Imm Gran Pct Auto 0.5 % (0.0-0.4); Lymphocytes Absolute Auto 1.6 X10*3/uL (1.2-4.9); Lymphocytes Percent Auto 19.5 % (20-40); Mean Corpuscular HGB Conc 33.3 g/dl (31.0-36.0); Mean Corpuscular Hemoglobin 28.2 pg (27.0-33.0); Mean Corpuscular Volume 84.6 fL (80.0-98.0); Monocytes Absolute Auto 0.9 X10*3/uL (0.1-1.2); Monocytes Percent Auto 11.2 % (2-11); Neutrophils Absolute Auto 5.6 x10*3/uL (2.0-8.3); Neutrophils Percent Auto 67.7 % (45-73); Platelet Count 299 X10*3/uL (160-400); Red Blood Count 3.97 X10*6/uL (4.60-5.80); Red Cell Distribution Width 14.8 % (11.0-16.0); White Blood Count 8.3 X10*3/uL (4.8-10.8)
[2023-10-14 06:45] LABS: Anion Gap 14 (12-20); Blood Urea Nitrogen 17 mg/dL (9-16); Calcium 9.3 mg/dL (8.4-10.2); Carbon Dioxide 24 mmol/L (22-29); Chloride 104 mmol/L (96-108); Creatinine Clr Calc Pharmacy 73.5; Estimated Glomerular Filt Rate > 60; Glucose Random 128 mg/dL (60-115); Potassium 3.8 mmol/L (3.3-5.1); Sodium 138 mmol/L (135-145)
[2023-10-14 07:40] LABS: Glucose, Whole Blood 132 mg/dL (60-115)
[2023-10-14] MEDS: Aspirin Enteric Coated 81 MG TABLET.DR PO (08:02)
[2023-10-14] MEDS: Isosorbide Mononitrate 60 MG TAB.ER.24H PO (08:02)
[2023-10-14] MEDS: Insulin Glargine,Hum.rec.anlog 100 UNIT/ML 10 ML VIAL 45 UNIT SUBCUT (08:02)
[2023-10-14] MEDS: cilostazoL 100 MG TABLET PO ×2 (08:02→20:49)
[2023-10-14] MEDS: Escitalopram Oxalate 10 MG TABLET PO (08:02)
[2023-10-14] MEDS: Metoprolol Tartrate 50 MG TABLET PO ×2 (08:02→20:49)
[2023-10-14] MEDS: Docusate Sodium 100 MG CAPSULE PO ×2 (08:02→20:49)
[2023-10-14] MEDS: Atorvastatin Calcium 80 MG TABLET PO (08:02)
[2023-10-14] MEDS: Pantoprazole Sodium 20 MG TABLET.DR 80 MG PO ×2 (08:02→20:49)
[2023-10-14] MEDS: Finasteride 5 MG TABLET PO (08:02)
[2023-10-14] MEDS: Valsartan 80 MG TABLET PO (08:02)
[2023-10-14] MEDS: amLODIPine Besylate 10 MG TABLET PO (08:02)
[2023-10-14] MEDS: Ezetimibe 10 MG TABLET PO (08:02)
[2023-10-14] MEDS: 0.9 % Sodium Chloride Flush 3 ML SYRINGE IVFLUSH ×2 (08:03→20:50)
[2023-10-14 08:12] VITALS: BP 163/74; PULSE 83; RESP 18; TEMP 36.8; O2SAT 96
[2023-10-14 11:35] LABS: Glucose, Whole Blood 295 mg/dL (60-115)
[2023-10-14] MEDS: Insulin Lispro 100 UNIT/ML 3 ML VIAL SUBCUT ×3 (11:45→20:50)
[2023-10-14] MEDS: oxyCODONE HCl Immed Release 5 MG TABLET PO ×2 (13:30→18:31)
[2023-10-14] MEDS: levoFLOXacin/D5W 750 MG/150 ML PIGGYBACK 100 MG IV (13:30)
--- NOTE | 2023-10-14 13:30 | MHC.CM.PN ---
Per MD rounds patient not medically cleared for dc. CM will continue to follow.
--- NOTE | 2023-10-14 13:39 | P.PNIM_ITS ---
Subjective Subjective Date of Service: 10/14/23 Interval History: f/u on prostatitis Review of Systems has some dysuria mechanical fall Physical Exam 2 Vital Signs: Vital Signs: Last Vital Signs Temp 98.3 F 10/14/23 08:12 Pulse 83 10/14/23 08:12 Resp 18 10/14/23 08:12 BP 163/74 H 10/14/23 08:12 Pulse Ox 96 10/14/23 08:12 O2 Del Method Room Air 10/14/23 08:12 BMI result Body Mass Index 33.3 General: AO X 3, no acute distress Resp: CTA bilateral CVS: S1,S2,RRR GI: +BS, NT, no distention Skin: No rash : prostate exam defered Neuro: motor grossly intact Psych: appropriate affect Objective Data Active Medications Acetaminophen (Acetaminophen 325 Mg Tablet) 650 mg PO Q6H PRN PRN Reason: Pain, Mild (Pain Scale 1-3), fever or headache Last Admin: 10/13/23 09:26 Dose: 650 mg Documented By: RENETTA Acetaminophen (Acetaminophen 325 Mg Tablet) 975 mg PO Q8H PRN PRN Reason: pain Last Admin: 10/13/23 21:03 Dose: 975 mg Documented By: AV Amlodipine Besylate (Amlodipine Besylate 10 Mg Tablet) 10 mg PO DAILY [facility]; Protocol Last Admin: 10/14/23 08:02 Dose: 10 mg Documented By: RENETTA Aspirin (Aspirin Enteric Coated 81 Mg Tablet.) 81 mg PO DAILY [facility] Last Admin: 10/14/23 08:02 Dose: 81 mg Documented By: RENETTA Atorvastatin Calcium (Atorvastatin Calcium 80 Mg Tablet) 80 mg PO DAILY [facility] Last Admin: 10/14/23 08:02 Dose: 80 mg Documented By: RENETTA Calcium Carbonate (Calcium Carbonate 750 Mg Tab.Chew) 750 mg PO Q4H PRN PRN Reason: Heartburn Cilostazol (Cilostazol 100 Mg Tablet) 100 mg PO BID [facility] Last Admin: 10/14/23 08:02 Dose: 100 mg Documented By: RENETTA Docusate Sodium (Docusate Sodium 100 Mg Capsule) 100 mg PO BID [facility] Last Admin: 10/14/23 08:02 Dose: 100 mg Documented By: RENETTA Doxazosin Mesylate (Doxazosin Mesylate 2 Mg Tablet) 8 mg PO BEDTIME [facility]; Protocol Last Admin: 10/13/23 20:53 Dose: 8 mg Documented By: AV Ezetimibe (Ezetimibe 10 Mg Tablet) 10 mg PO DAILY [facility] Last Admin: 10/14/23 08:02 Dose: 10 mg Documented By: RENETTA Enoxaparin Sodium (Enoxaparin Sodium 40 Mg/0.4 Ml Syringe) 40 mg SUBCUT Q24H [facility] Last Admin: 10/13/23 16:36 Dose: 40 mg Documented By: RENETTA Escitalopram Oxalate (Escitalopram Oxalate 10 Mg Tablet) 10 mg PO DAILY [facility] Last Admin: 10/14/23 08:02 Dose: 10 mg Documented By: RENETTA Finasteride (Finasteride 5 Mg Tablet) 5 mg PO DAILY [facility] Last Admin: 10/14/23 08:02 Dose: 5 mg Documented By: RENETTA Glucose (Glucose Gel 15 Gm Gel..Gram.) 15 gm PO Q15M PRN; Protocol PRN Reason: per Hypoglycemia Standing Ord. Dextrose (D10) 250 mls @ 750 mls/hr IV Q15M PRN; Protocol PRN Reason: per Hypoglycemia Standing Ord. Levofloxacin (Levaquin) 750 mg in 150 mls @ 100 mls/hr IV Q24H [facility] Last Admin: 10/14/23 13:30 Dose: 100 mls/hr Documented By: KHRIS Insulin Glargine (Insulin Glargine,Hum.Rec.Anlog 100 Unit/Ml 10 Ml Vial) 45 unit SUBCUT DAILY [facility] Last Admin: 10/14/23 08:02 Dose: 45 unit Documented By: RENETTA Insulin Human Lispro (Insulin Lispro 100 Unit/Ml 3 Ml Vial) 0 unit SUBCUT QIDACHS [facility]; Protocol Last Admin: 10/14/23 11:45 Dose: 6 unit Documented By: RENETTA Isosorbide Mononitrate (Isosorbide Mononitrate 60 Mg Tab.Er.24h) 60 mg PO DAILY [facility]; Protocol Last Admin: 10/14/23 08:02 Dose: 60 mg Documented By: RENETTA Magnesium Hydroxide (Milk Of Magnesia 30 Ml Oral.Susp) 30 ml PO DAILY PRN PRN Reason: Constipation Last Admin: 10/13/23 07:30 Dose: 30 ml Documented By: RENETTA Melatonin (Melatonin 3 Mg Tablet) 6 mg PO BEDTIME PRN PRN Reason: Insomnia Last Admin: 10/12/23 02:05 Dose: 6 mg Documented By: VERITO Metoprolol Tartrate (Metoprolol Tartrate 50 Mg Tablet) 50 mg PO BID [facility]; Protocol Last Admin: 10/14/23 08:02 Dose: 50 mg Documented By: RENETTA Nitroglycerin (Nitroglycerin 0.4 Mg Tab.Subl) 0.4 mg SUBLINGUAL Q5M PRN PRN Reason: Chest Pain Ondansetron HCl (Ondansetron Hcl 4 Mg/2 Ml Vial) 4 mg IVPUSH Q8H PRN PRN Reason: Nausea and Vomiting Oxycodone HCl (Oxycodone Hcl Immed Release 5 Mg Tablet) 5 mg PO Q6H PRN PRN Reason: Pain, Moderate(Pain Scale 4-6) Last Admin: 10/14/23 13:30 Dose: 5 mg Documented By: KHRIS Pantoprazole Sodium (Pantoprazole Sodium 20 Mg Tablet.Dr) 80 mg PO BID [facility] Last Admin: 10/14/23 08:02 Dose: 80 mg Documented By: RENETTA Sodium Chloride (0.9 % Sodium Chloride Flush 3 Ml Syringe) [facility] Last Admin: 10/14/23 08:03 Dose: 3 ml Documented By: RENETTA Trazodone HCl (Trazodone Hcl 100 Mg Tablet) 100 mg PO BEDTIME [facility] Last Admin: 10/13/23 20:54 Dose: 100 mg Documented By: AV Valsartan (Valsartan 80 Mg Tablet) 80 mg PO DAILY [facility] Last Admin: 10/14/23 08:02 Dose: 80 mg Documented By: RENETTA Labs 10/14/23 05:32 10/14/23 05:32 Labs: Laboratory Results - last 24 hr 10/13/23 10/13/23 10/14/23 16:17 20:09 05:32 MCV 84.6 MCH 28.2 MCHC 33.3 RDW 14.8 Plt Count 299 MPV 9.0 L Immature Gran % (Auto) 0.5 H Neut % (Auto) 67.7 Lymph % (Auto) 19.5 L [place] % (Auto) 11.2 H Eos % (Auto) 1.0 Baso % (Auto) 0.1 Lymph # (Auto) 1.6 [place] # (Auto) 0.9 Eos # (Auto) 0.1 Baso # (Auto) 0.0 Abs Immat Gran (auto) 0.04 H Absolute Neuts (auto) 5.6 Absolute Nucleated RBC 0.000 Nucleated RBC % (auto) 0.0 Anion Gap 14 Estim Creat Clear Calc 73.5 Estimated GFR > 60 POC Glucose 215 H 162 H Random Glucose 128 H Calcium 9.3 10/14/23 10/14/23 07:27 11:29 MCV MCH MCHC RDW Plt Count MPV Immature Gran % (Auto) Neut % (Auto) Lymph % (Auto) [place] % (Auto) Eos % (Auto) Baso % (Auto) Lymph # (Auto) [place] # (Auto) Eos # (Auto) Baso # (Auto) Abs Immat Gran (auto) Absolute Neuts (auto) Absolute Nucleated RBC Nucleated RBC % (auto) Anion Gap Estim Creat Clear Calc Estimated GFR POC Glucose 132 H 295 H Random Glucose Calcium Microbiology Microbiology Results: Microbiology 10/11/23 14:08 Blood Culture - Preliminary Blood - Venous No growth after 48 hours. 10/11/23 14:18 Blood Culture - Preliminary Blood - Venous No growth after 48 hours. Assessment and Plan (1) Acute prostatitis: Status: Acute Assessment and Plan: 73/m with CAD status post CABG, insulin-dependent diabetes mellitus, hypertension, mood disorder, BPH, DEANDRE on CPAP, gastroesophageal discharge 3 weeks ago with UTI and WILLIAM and now here with prostatitis Acute prostatitis, and possible prostate abscesscystitis Culture-ecoli senstive to levaquin ct abd-prostatic abscess/ degree of circumferential wall thickening of the urinary bladder. continue iv levaquin ,flomax,proscar,morphine for pain. urology eval noted-continue above. DM-2 with hyperglycemia : fs flactuating Lantus and fs with SSI,hold metformin Hypertension-Norvasc, metoprolol, Imdur, valsartan HLD-statin Mood disorder-continue Celexa BPH-Doxazosin GERD-omeprazole CAD-continue ASA, metoprolol, imdur, statin DEANDRE- Continue CPAP at bedtime OA of R knee with chronic pain-APAP knee xray-seems similar [facility] fall: knee xray-seems similar ct head pendin DVT prophylaxis: Lovenox Full code need for inpt: IV Abx for acute prostatitis- need iv antibiotics ,cultures pending ,need urology followup. Quality Stroke Does the patient have a stroke diagnosis?: No VTE Prior VTE?: No VTE Risk Level:: Medical - moderate - high VTE Device Contraindication: Treatment Not Indicated VTE Drug Contraindication: N/A - Med Ordered
[2023-10-14 16:20] VITALS: BP 140/65; PULSE 73; RESP 18; TEMP 36.9; O2SAT 96
[2023-10-14] MEDS: Enoxaparin Sodium 40 MG/0.4 ML SYRINGE SUBCUT (17:40)
[2023-10-14 17:41] LABS: Glucose, Whole Blood 213 mg/dL (60-115)
[2023-10-14] MEDS: Acetaminophen 325 MG TABLET 650 MG PO (19:25)
[2023-10-14 19:53] VITALS: BP 147/65; PULSE 81; RESP 16; TEMP 37.1; O2SAT 95
[2023-10-14 20:36] LABS: Glucose, Whole Blood 190 mg/dL (60-115)
[2023-10-14] MEDS: Doxazosin Mesylate 2 MG TABLET 8 MG PO (20:49)
[2023-10-14] MEDS: traZODone HCL 100 MG TABLET PO (20:49)
[2023-10-15] MEDS: oxyCODONE HCl Immed Release 5 MG TABLET PO (02:17)
[2023-10-15] MEDS: Acetaminophen 325 MG TABLET 650 MG PO (02:18)
[2023-10-15 03:33] VITALS: BP 144/66; PULSE 89; RESP 16; TEMP 37.1; O2SAT 97
[2023-10-15 07:23] LABS: Glucose, Whole Blood 176 mg/dL (60-115)
[2023-10-15 07:41] VITALS: BP 147/65; PULSE 77; RESP 16; TEMP 36.4; O2SAT 97
[2023-10-15] MEDS: Valsartan 80 MG TABLET PO (08:10)
[2023-10-15] MEDS: Docusate Sodium 100 MG CAPSULE PO (08:10)
[2023-10-15] MEDS: Insulin Lispro 100 UNIT/ML 3 ML VIAL SUBCUT ×2 (08:10→11:41)
[2023-10-15] MEDS: Insulin Glargine,Hum.rec.anlog 100 UNIT/ML 10 ML VIAL 45 UNIT SUBCUT (08:10)
[2023-10-15] MEDS: cilostazoL 100 MG TABLET PO (08:10)
[2023-10-15] MEDS: Isosorbide Mononitrate 60 MG TAB.ER.24H PO (08:11)
[2023-10-15] MEDS: 0.9 % Sodium Chloride Flush 3 ML SYRINGE IVFLUSH (08:11)
[2023-10-15] MEDS: Finasteride 5 MG TABLET PO (08:11)
[2023-10-15] MEDS: amLODIPine Besylate 10 MG TABLET PO (08:11)
[2023-10-15] MEDS: Metoprolol Tartrate 50 MG TABLET PO (08:11)
[2023-10-15] MEDS: Aspirin Enteric Coated 81 MG TABLET.DR PO (08:11)
[2023-10-15] MEDS: Atorvastatin Calcium 80 MG TABLET PO (08:11)
[2023-10-15] MEDS: Ezetimibe 10 MG TABLET PO (08:11)
[2023-10-15] MEDS: Escitalopram Oxalate 10 MG TABLET PO (08:11)
[2023-10-15] MEDS: Pantoprazole Sodium 20 MG TABLET.DR 80 MG PO (08:11)
--- NOTE | 2023-10-15 10:18 | MHC.CM.PN ---
Per MD rounds patient medically cleared for dc home w/ resumption of [facility] services. Patient's to provide transport at 1pm. RN / [facility] aware.
[2023-10-15 11:17] LABS: Glucose, Whole Blood 225 mg/dL (60-115)
--- NOTE | 2023-10-15 11:59 | PM.DS ---
DS: Providers Provider Date of Service: 10/15/23 Date of admission: 10/11/23 15:51 Date of discharge: 10/15/23 Primary care physician: Darius Gonzales MD Admitting clinician: Chaparro Shah Attending physician on admission: Chaparro Shah Consults: 10/12/23 11:56 Consult to Urology Routine Consulting [place] [facility] [place] [facility] Reason for consultation: prostatitis, possible prostate abscess Has provider been notified: No Attending physician on discharge: Scotty Hill Discharging clinician: Scotty Hill DS: Diagnosis Discharge Diagnosis (1) Acute prostatitis: Status: Acute DS: Summary Hospital Course Hospital Course: 73-year-old male presents with a history of coronary artery disease (CAD) status post coronary artery bypass grafting (CABG), insulin-dependent diabetes mellitus, hypertension, mood disorder, benign prostatic hyperplasia (BPH), obstructive sleep apnea (DEANDRE) on CPAP, and gastroesophageal reflux disease. He was discharged from the hospital six weeks ago following treatment for a urinary tract infection (UTI) and acute kidney injury (WILLIAM). He now returns with persistent dysuria, particularly at the start of voiding, and experiences difficulty initiating urination, although he reports no blood in his urine. He also describes experiencing chills, especially at night. Urinalysis (UA) reveals positive leukocyte esterase and a high white blood cell (WBC) count, consistent with a UTI. A CT scan shows an enlarged prostate with findings suggestive of a possible abscess, along with bladder wall thickening. Testing for Chlamydia and Gonorrhea is negative. The patient is initiated on intravenous Levaquin after obtaining cultures. The clinical picture is suggestive of a recurrent UTI, potentially complicated by a prostatic abscess and bladder wall thickening. The persistent dysuria, difficulty initiating urination, and systemic symptoms like chills are concerning for an ongoing significant infection. The CT findings of an enlarged prostate with possible abscess and bladder wall thickening raise the possibility of complications beyond a simple UTI. Given his complex medical history, including CAD, diabetes, and recent WILLIAM, close monitoring and follow-up are essential. The presence of an abscess may require drainage, and a urology consultation would be appropriate to address the enlarged prostate and potential abscess. The bladder wall thickening may be due to chronic infection, inflammation, or other underlying conditions, warranting further evaluation. Hospital course: Patient with multiple comorbidities including CAD status post CABG, diabetes, hypertension, mood disorder, BPH, DEANDRE on CPAP-who initially had UTI with WILLIAM 3-4 weeks back-came with the Acute prostatitis, and possible prostate abscess ,cystitis/uti: Patient was started on IV antibiotics, pain medication, urine culture and blood cultures sent, no leukocytosis. No fevers.Urine culture- E coli pansenstive. Patient dysuria seems to be improved significantly with above supportive care, patient was seen by Urology recommended total 21 days .continue flomax and added proscar 5 mg po daily. plan: complete levofloxacin 750 mg po qd for 18 more days follow up with urology . Obesity-patient was encouraged to lose weight, cutdown calories. Above management discussed with the patient detail length with the flight engineer instructor present, patient and his understand and in agreement with the above plan, time spent 40 minute. Time Attestation Total time managing care of this patient today: 40 mintues. Discharge Coordination Time (in mins): 40 min Quality: Safe Use of Opioids Does Pt have an Active Cancer Diagnosis on the Problem List?: No Quality: Stroke Does the patient have a stroke diagnosis?: No Physical Exam Vital Signs: Vital Signs: Last Vital Signs Temp 97.5 F 10/15/23 07:41 Pulse 77 10/15/23 07:41 Resp 16 10/15/23 07:41 BP 147/65 H 10/15/23 07:41 Pulse Ox 97 10/15/23 07:41 O2 Del Method Room Air 10/15/23 07:41 BMI result Body Mass Index 33.3 General: AO X 3, no acute distress Resp: CTA bilateral CVS: S1,S2,RRR GI: +BS, NT, no distention Skin: No rash :no cva tenderness, prostate exam defered Neuro: motor grossly intact Psych: appropriate affect DS: Data Data Completed and Pending Completed studies during hospitalization [Text1]: Procedures Assistance with Respiratory Ventilation, Less than 24 Consecutive Hours, Continuous Positive Airway Pressure (09/08/23) Labs on day of discharge: Laboratory Results - last 24 hr 10/14/23 10/14/23 10/15/23 17:32 20:28 07:16 POC Glucose 213 H 190 H 176 H 10/15/23 11:12 POC Glucose 225 H Preliminary micro results at discharge 10/11/23 14:08 Blood Culture - Preliminary Blood - Venous No growth after 48 hours. 10/11/23 14:18 Blood Culture - Preliminary Blood - Venous No growth after 48 hours. Imaging Chest x-ray: Radiologist's impression: ITS Impressions Knee X-Ray 10/11/23 11:18 IMPRESSION: Small knee effusion. Mild degenerative changes. No acute osseous abnormality is appreciated. Electronically signed by: Daniel Medina MD 10/11/2023 02:09 PM EDT RP Abdomen/Pelvis CT 10/11/23 11:27 IMPRESSION: 1. Significant heterogeneous enlargement of the prostate gland, measuring up to 7.7 cm in axial dimension (previously 6.3 cm on exam from 09/08/2023). There appears to be multifocal regions of hypoattenuation centrally within the expanded prostate gland, potentially suggesting prostatic abscess formation. 2. There appears to be a degree of circumferential wall thickening of the urinary bladder (although the urinary bladder is not fully distended on this exam). These changes may indicate sequela of underlying urinary tract infection. Recommend correlation with urinalysis. 3. Diverticulosis without evidence of diverticulitis. Electronically signed by: Kiko Hoffman DO 10/11/2023 01:50 PM EDT RP Hip X-Ray 10/13/23 21:55 IMPRESSION: RIGHT HIP: No acute fracture or dislocation. RIGHT KNEE: 1. No acute fracture or dislocation. 2. Again noted small joint effusion and soft tissue swelling along the patellar tendon. Electronically signed by: Vale Riojas MD 10/13/2023 11:38 PM EDT RP Knee X-Ray 10/13/23 21:55 IMPRESSION: RIGHT HIP: No acute fracture or dislocation. RIGHT KNEE: 1. No acute fracture or dislocation. 2. Again noted small joint effusion and soft tissue swelling along the patellar tendon. Electronically signed by: Vale Riojas MD 10/13/2023 11:38 PM EDT RP Head CT 10/14/23 09:58 IMPRESSION: No acute intracranial pathology. No evidence of an intracranial bleed. Electronically signed by: Dez Alcantara MD 10/14/2023 03:26 PM EDT RP Discharge Plan Discharge Anticipated Discharge Date/Time: 10/15/23 11:07 Patient Disposition: Home, Self-Care Discharge Diagnosis: uti with acute prostatitis ,possible prostatic abscess Referrals: Mckenna Cohen MD [Physician] - 1 Week Darius Gonzales MD [Primary Care Provider] - 1 Week Discharge Medications: New levofloxacin 750 mg tablet 750 mg PO Q24H Qty: 18 0RF docusate sodium 100 mg Capsule 100 mg PO BID Qty: 30 0RF magnesium hydroxide [Milk of Magnesia] 400 mg/5 mL Suspension 30 ml PO DAILY PRN (Reason: Constipation) Qty: 355 0RF finasteride 5 mg Tablet 5 mg PO DAILY Qty: 60 0RF oxycodone 5 mg capsule 5 mg PO BID PRN (Reason: pain) Qty: 6 0RF Rx Instructions: Partial Fill upon patient request. polyethylene glycol 3350 [Miralax] 17 gram/dose powder 17 g PO DAILY Qty: 119 0RF Continued cilostazol 100 mg tablet 100 mg PO BID Qty: 180 3RF nitroglycerin 0.4 mg tablet, sublingual 0.4 mg sublingual Q5M PRN (Reason: Chest Pain) Qty: 30 0RF Rx Instructions: do not exceed 3 doses per episode metoprolol tartrate 50 mg tablet 50 mg PO BID Qty: 180 3RF omeprazole 40 mg capsule,delayed release(DR/EC) 40 mg PO BID Qty: 60 6RF acetaminophen 500 mg capsule 1,000 mg PO Q8H PRN (Reason: pain) Qty: 30 0RF melatonin 3 mg tablet 3 mg PO BEDTIME PRN (Reason: Sleep) Trulicity 4.5 mg/0.5 mL pen injector 4.5 mg subcut FR insulin lispro [Humalog KwikPen Insulin] 100 unit/mL insulin pen 16 unit subcut TIDAC aspirin 81 mg tablet,delayed release (DR/EC) 81 mg PO DAILY isosorbide mononitrate 60 mg tablet extended release 24 hr 60 mg PO DAILY amlodipine 10 mg tablet 10 mg PO DAILY irbesartan 150 mg tablet 150 mg PO DAILY ezetimibe 10 mg tablet 10 mg PO DAILY rosuvastatin 20 mg tablet 20 mg PO DAILY doxazosin 2 mg Tablet 4 mg PO BEDTIME Qty: 60 0RF Protocol: Hold for SBP< HOLD for SBP < : 90 escitalopram oxalate 10 mg tablet 10 mg PO DAILY metformin 1,000 mg tablet 1,000 mg PO DAILY insulin glargine [Lantus Solostar U-100 Insulin] 100 unit/mL (3 mL) insulin pen 85 unit subcut DAILY trazodone 100 mg tablet 100 mg PO BEDTIME Discharge Orders: Discharge Order (Routine); Ordered 10/15/23 Ordered By: Scotty Hill Diet: Advance to usual diet Activity on Discharge: As tolerated Stand Alone Forms: Patient Portal Discharge page Print Language: Urdu Care Plan Goals: Patient with multiple comorbidities including CAD status post CABG, diabetes, hypertension, mood disorder, BPH, DEANDRE on CPAP-who initially had UTI with WILLIAM 3-4 weeks back-came with the Acute prostatitis, and possible prostate abscess ,cystitis/uti: Patient was started on IV antibiotics, pain medication, urine culture and blood cultures sent, no leukocytosis. No fevers.Urine culture- E coli pansenstive. Patient dysuria seems to be improved significantly with above supportive care, patient was seen by Urology recommended total 21 days .continue flomax and added proscar 5 mg po daily. Health Concerns: complete levofloxacin 750 mg po qd for 18 more days follow up with urology . Plan of Treatment: as above. Assessment: as above. Patient Instructions: Prostatitis (DC), Urinary Tract Infection in Children (DC)
== END 2023-10-15 12:53 | disposition home or self-care (01) | DRG 690 ==
LOC: HO.ED 11:31 → HO.EDOVER 15:57 → HO.S3 10-12 13:12
PROVIDERS: Physician Assistant Medical; Admitting Provider Internal Medicine; Emergency Provider Emergency Medicine; PCP Internal Medicine; Visit Provider Internal Medicine
DX: N30.00 Acute cystitis without hematuria (principal); N41.0 Acute prostatitis; N17.9 Acute kidney failure, unspecified; N41.2 Abscess of prostate; I25.10 Atherosclerotic heart disease of native coronary artery without angina pectoris; K21.9 Gastro-esophageal reflux disease without esophagitis; F39 Unspecified mood [affective] disorder; B96.20 Unspecified Escherichia coli [E. coli] as the cause of diseases classified elsewhere; W19.XXXA Unspecified fall, initial encounter; E11.65 Type 2 diabetes mellitus with hyperglycemia; E66.9 Obesity, unspecified; Z68.33 Body mass index [BMI] 33.0-33.9, adult; M17.0 Bilateral primary osteoarthritis of knee; I10 Essential (primary) hypertension; G47.33 Obstructive sleep apnea (adult) (pediatric); Z95.1 Presence of aortocoronary bypass graft; Z87.891 Personal history of nicotine dependence; Z87.440 Personal history of urinary (tract) infections; Z79.4 Long term (current) use of insulin; Z79.82 Long term (current) use of aspirin; Z79.84 Long term (current) use of oral hypoglycemic drugs; Z79.85 Long-term (current) use of injectable non-insulin antidiabetic drugs; Z79.899 Other long term (current) drug therapy
CPT/HCPCS: 36415; 70450; 73502; 73560; 74176; 80048; 80053; 81001; 82947; 83605; 83735; 85025; 87040; 87086; 87088; 87186; 87491; 87591; 92950; 94660; 99285; J1650; J1885; J1956; J2270

== ENCOUNTER → 2023-10-11 15:51 | Outpatient (BNV) | payer MEDICARE, MEDICAID, SELFPAY | PROVIDERS: Admitting Provider Internal Medicine; Emergency Provider Emergency Medicine; PCP Internal Medicine; Visit Provider Internal Medicine | DX: N41.9 Inflammatory disease of prostate, unspecified (principal) | CPT/HCPCS: 99223; 99232; 99239 ==

== ENCOUNTER → 2023-10-11 15:51 | Outpatient (BNV) | payer MEDICARE, MEDICAID, SELFPAY | PROVIDERS: Admitting Provider Internal Medicine; Emergency Provider Emergency Medicine; PCP Internal Medicine; Visit Provider Urology | DX: N41.9 Inflammatory disease of prostate, unspecified (principal); N41.2 Abscess of prostate | CPT/HCPCS: 99222 ==

== ENCOUNTER 2023-10-21 13:00 | Outpatient (AMB) | payer MEDICARE, MEDICAID, SELFPAY ==
--- NOTE | 2023-10-21 13:16 | MHC.OFFVIS ---
Intake Visit Reasons: 8w/ follow up Intake Note: Patient is present for ER Admission follow up Acute Prostatitis/Enlarged Prostate/Bladder Wall Thickening Patient was in [facility] on 10/11/[address] Shahid Lopez MD Was treated for possible Prostatic Abcess by IV Patient had CT Scan done - Enlarged Prostate, Bladder wall thickedning Urology Med: Finasteride, Doxazosin, Patient is on Trulicity Blood Thinner: Aspirin Patient states that he feels a lot of pain in his prostate, States that he feels alot of pain when he needs to urinate. Patient states that he does have to strain alot to start urination PVR: 23ML Animal Therapist Required: Yes Animal Therapist Language: Dye Stand Loader Services: Animal Therapist Present Information Interpreted: clinical only Accompanied by: Self / Same As Patient Allergies No Known Allergies [No Known Allergies*] Allergy (Verified 10/21/23 13:21) HPI Comments Details: Len is a pleasant Bel[place]ian-speaking male. He is a patient of Dr. Ball. He is seen for the following urologic conditions - prostatitis - lower urinary tract symptoms Prostatitis Significantly enlarged prostate Persistent pain and discomfort Has been on finasteride and doxazosin since hospital On Levaquin for E coli positive UTI Will place Stein catheter today Plan for GreenLight laser prostatectomy PFSH Medical History Type 2 diabetes mellitus with unspecified complications Sepsis Hyperthyroidism Multinodular thyroid HLD (hyperlipidemia) HTN (hypertension) Obesity NSTEMI (non-ST elevated myocardial infarction) CAD (coronary artery disease) Diabetes mellitus Myocardial infarct Surgical History History of esophagogastroduodenoscopy (EGD) Hx of colonoscopy Hx of ultrasound guided needle biopsy Hx of CABG (~07/2016) Family History Mother Cardiovascular disease Father Medical history unknown Sister Cancer Brother Cancer Social History Household Members: Family Housing: Apartment Do you presently have visiting nurse or other home services: Yes Alcohol intake: former Patient Tobacco Use Status: Former Tobacco user service: No Current occupational status: unemployed Review of Systems Const Denies chills and Denies fever(s) Card Reports no additional complaints and Denies syncope Resp Denies cough GI Denies abdominal pain and Denies heartburn Reports as per HPI and Denies change in libido Neuro Denies syncope Psych Denies change in libido Endo Denies change in libido Physical Exam Const General: cooperative, healthy appearing, comfortable and no acute distress Orientation/consciousness: patient oriented x3 HEENT Face and sinus: Yes normal facial exam Mouth: moist mucous membranes Neck Neck: Yes normal visual inspection, Yes full ROM and Yes trachea midline Chest Chest palpation & inspection: normal inspection of the chest Resp Effort & Inspection: normal respiratory effort, able to speak in complete sentences and no respiratory distress GI Inspection: Yes normal to inspection Back/Spine/Pelvis Cervical Spine: normal cervical lordosis Thoracic/Lumbar Spine: thoracic and lumbar spine normal to inspection Skin General skin exam: no rashes or lesions noted Neuro General: patient oriented x3, gait normal, tone normal and moves all extremities Extrem General: Yes normal to inspection and Yes capillary refill normal Office Procedures Bladder/Catheter Procedure Details: 18 fr coude stein catheter 10ml balloon with flip valve inserted, patient tolerated well. Patient to have procedure in OR with Dr. Carney [id number] Temporary Bladder Catheter Procedure code (CPT) selection complete Post Void Residual Post Residual Void Post Void Residual (PVR): 23 [id number] Void Residual by ultrasound Assessment & Plan Assessment & Plan (1) Prostatic abscess: Code(s): N41.2 - Abscess of prostate Category: Medical (2) Bladder outlet obstruction: Code(s): N32.0 - Bladder-neck obstruction Category: Medical Plan We discussed the nature of the decision and reasonable options for performing a prostate intervention. Interventions include TURP, GreenLight laser enucleation of the prostate, GreenLight laser ablation of the prostate, transurethral incision of the prostate, and I-Tend prostate procedure. Options such as medical therapy were discussed. The relative uncertainties and benefits related to each alternate procedure were adequately discussed. General surgical risks including, but not limited to, pain, bleeding, infection, myocardial infarction, pulmonary embolus, deep vein thrombosis and cerebrovascular accident which may result in further hospitalization were discussed. Full disclosure of the procedure as well as all major risks, benefits and complications were discussed including but not limited to damage to the urethra or bladder neck, recurrent BPH, retrograde ejaculation, bladder infection, urge, de roxane frequency, incomplete emptying, dysuria, remote chance of erectile dysfunction, epididymitis, and meatal stenosis. The success rate of the procedure was discussed. Success of the procedure in the short-term does not necessarily guarantee that long-term success will be maintained. Suitable follow up will need to be maintained. The patient showed understanding of discussion. An opportunity was provided for questions to be answered and wishes to proceed with the following procedure. - GreenLight prostate procedure Orders: Orders AMB Post Void Residual by ultrasound Today N41.0 - Acute prostatitis AMB Bladder/Catheter Procedure Today N41.2 - Abscess of prostate, N41.9 - Inflammatory disease of prostate, unspecified Patient Instructions: Imaging studies, laboratory and physical exam results were discussed and reviewed in detail. No major barriers to patient understanding were identified. An opportunity to ask questions regarding the treatment plan was provided. All questions were answered. The patient expressed understanding and agreement with the above treatment plan. The patient is aware they should contact our office by phone for worsening of their current condition or the appearance of new urologic symptoms. Compliance is encouraged with any medications and followup testing that is ordered. It is a privilege to participate in the urologic care of your patient. If you have any questions or concerns regarding treatment for the above conditions, or other urologic issues, please do not hesitate to contact me. The office telephone contact is [phone]. This note is constructed using voice recognition software. While every effort has been made to ensure accuracy motor express clerk errors may have been included. Yours sincerely, Dr Cristobal Carney MD, [facility] - Urology Providers of Expert, Compassionate Care for the Genitourinary System Coding Level of Care Code Est Pt Level 4 (76344) Diagnoses Prostatic abscess N41.2 Bladder outlet obstruction N32.0 CPT Codes Bladder/Catheter Procedure - CPT: 55629-Wvgkip Temporary Bladder Catheter ([id number]) Post Residual Void - PVR CPT Code: 41028-Ivsj Void Residual by ultrasound ([id number])
== END 2023-10-21 14:21 | disposition home or self-care (01) ==
PROVIDERS: PCP Internal Medicine; Visit Provider Urology
DX: N41.2 Abscess of prostate (principal); N32.0 Bladder-neck obstruction
CPT/HCPCS: 51702; 99214

== ENCOUNTER → 2023-10-21 13:00 | Outpatient (BNVA) | payer MEDICARE, MEDICAID, SELFPAY | PROVIDERS: PCP Internal Medicine; Visit Provider Urology | DX: N40.1 Benign prostatic hyperplasia with lower urinary tract symptoms (principal); N32.89 Other specified disorders of bladder; N41.2 Abscess of prostate; N32.0 Bladder-neck obstruction; N41.9 Inflammatory disease of prostate, unspecified; Z79.899 Other long term (current) drug therapy | CPT/HCPCS: 51702; 51798; 99212 ==

== ENCOUNTER 2023-11-01 09:09 | Inpatient (IN) | payer MEDICARE, MEDICAID, SELFPAY ==
[2023-11-01] VITALS (7 sets, daily range): BP systolic 139–173; BP diastolic 63–91; PULSE 70–88; RESP 16–18; TEMP 36.3–37.1; O2SAT 95–97; BMI 32.9; BMI 31.1
--- NOTE | ~2023-11-01 | CT_ITS ---
EXAMINATION: CT ABDOMEN AND PELVIS WITH CONTRAST CLINICAL INFORMATION: Suprapubic discomfort COMPARISON: CT abdomen and pelvis 10/11/2023 TECHNIQUE: Multidetector volumetric images were obtained from the superior aspect of the liver through the pubic symphysis following administration 85 mL of Omnipaque 350 intravenous contrast. Sagittal and coronal reformatted images were obtained on the technologist's workstation. Oral contrast: No This CT examination was performed using dose optimization techniques as appropriate, variously including the following: *Automated exposure control *Adjustment of mA and/or kV according to patient size (this includes techniques or standardized protocols for targeted exams where dose is matched to indication/reason for exam; i.e. extremities or head) *Use of iterative reconstruction technique DLP: 598 mGy-cm FINDINGS: LUNG BASES: The visualized lung bases are unremarkable. LIVER, GALLBLADDER, AND BILIARY TREE: The liver is normal in size, shape, and attenuation. Tiny hypoattenuating cyst in right lobe of liver unchanged (3:10). No concerning focal hepatic lesion or biliary ductal dilatation is present. The gallbladder is unremarkable with no evidence of radiopaque gallstones, gallbladder wall thickening, or obvious pericholecystic inflammatory changes. PANCREAS: Unremarkable. SPLEEN: Unremarkable. ADRENAL GLANDS: Unremarkable. KIDNEYS AND URETERS: The kidneys are normal in size, shape, and attenuation. No hydronephrosis, hydroureter, or calculi seen. No perinephric stranding. Bilateral benign Bosniak class I renal cysts are noted, the largest measuring 9.2 cm in the mid right kidney, which require no additional imaging or follow-up. No solid renal masses are seen. BLADDER: Hair catheter is present in the bladder with a markedly thickened wall-see discussion below regarding prostate GASTROINTESTINAL TRACT: There is sigmoid diverticulosis without diverticulitis The small and large bowel are otherwise unremarkable. The appendix is unremarkable. ABDOMINAL WALL: No significant hernia is appreciated. LYMPH NODES: There are left iliac chain lymph node seen with a short axis dimension of 1 cm, similar to prior with no gross retroperitoneal lymphadenopathy. VASCULAR: Calcific atherosclerotic changes are present in the aorta and iliofemoral vessels. There is no evidence of an abdominal aortic aneurysm. PELVIC VISCERA: The prostate is grossly abnormal and enlarged with multiple low attenuation regions within the prostate more prominent on the current contrast enhanced study than on the prior study. These appear larger when compared to the prior exam. There is been interval increase in size of the left seminal vesicle which also appears of lower attenuation than the right. There is a new perirectal thick walled collection seen consistent with an abscess measuring 4.7 x 2.9 x 5.6 cm (3:71 and 5:78). No free fluid is seen. OSSEOUS STRUCTURES: Degenerative changes are present in the spine most marked from L4 through S1. CT/CT abdomen pelvis w IV con IMPRESSION: 1. Markedly abnormal prostate with multiple low-attenuation areas which have increased in size since the prior study. There is also enlargement of the left seminal vesicle. Findings are consistent with prostatitis with abscess formation with new perirectal abscess and new left seminal vesicle enlargement possibly secondary to infection as well. 2. Other incidental findings as described above including markedly thickened bladder wall, sigmoid diverticulosis and degenerative changes in the spine. Fleischner guidelines were followed. Electronically signed by: James Cota MD 11/01/2023 03:51 PM EDT RP
--- NOTE | 2023-11-01 10:13 | ED.MALEGU ---
HPI - Male Genitourinary General Chief complaint: Urogenital-Male Stated complaint: UTI, prostate issues Time Seen by Provider: 11/01/23 09:55 Source: patient Mode of arrival: ambulatory Limitations: no limitations History of Present Illness ED Provider: Sarita MELCHOR HPI Narrative: This is a 73-year-old male history of severe persistent asthma, bladder outlet obstruction, prostatic abscess, acute prostatitis, GERD hydronephrosis, hypothyroidism, obesity, hypertension, hyperlipidemia, CAD status post CABG in 2017, diabetes presents with discomfort to his folate/bladder, he reports he had a placed on 10/21/2023 and he is always uncomfortable he states the bag was too big he can not sleep at night because of the discomfort, he says he can not even drive because it is always in the way. He recently finished antibiotics. He reports he is regularly followed by urology and PCP. Denies abdominal pain, nausea, vomiting, fevers, chills, flank pain, chest pain, shortness of breath, headache, vision changes, dizziness and weakness Related Data Home Medications ?Medication ?Instructions ?Recorded ?Confirmed escitalopram oxalate 10 mg tablet 10 mg PO DAILY 02/07/20 11/01/23 metformin 1,000 mg tablet 1,000 mg PO DAILY 02/07/20 11/01/23 insulin glargine 100 unit/mL (3 85 unit subcut DAILY 10/30/21 10/11/23 mL) subcutaneous pen (Lantus Solostar U-100 Insulin) trazodone 100 mg tablet 100 mg PO BEDTIME 02/23/23 11/01/23 amlodipine 10 mg tablet 10 mg PO DAILY 09/08/23 11/01/23 aspirin 81 mg tablet,delayed 81 mg PO DAILY 09/08/23 11/01/23 release ezetimibe 10 mg tablet 10 mg PO DAILY 09/08/23 11/01/23 insulin lispro 100 unit/mL 16 unit subcut TIDAC 09/08/23 10/11/23 subcutaneous pen (Humalog KwikPen (U-100) Insulin) isosorbide mononitrate 60 mg 60 mg PO DAILY 09/08/23 11/01/23 tablet,extended release 24 hr rosuvastatin 20 mg tablet 20 mg PO DAILY 09/08/23 11/01/23 dulaglutide 4.5 mg/0.5 mL 4.5 mg subcut FR 10/11/23 11/01/23 subcutaneous pen injector (Trulicity) melatonin 3 mg tablet 3 mg PO BEDTIME PRN Sleep 10/11/23 11/01/23 Previous Rx's ?Medication ?Instructions ?Recorded acetaminophen 500 mg capsule 1,000 mg (2 x 500 mg) PO Q8H PRN 05/28/22 pain #30 caps doxazosin 2 mg tablet 4 mg PO BEDTIME #60 tabs 09/15/23 nitroglycerin 0.4 mg sublingual 0.4 mg sublingual Q5M PRN Chest 09/29/23 tablet Pain #30 tabs metoprolol tartrate 50 mg tablet 50 mg PO BID #180 tabs 10/05/23 omeprazole 40 mg capsule,delayed 40 mg PO BID #60 caps 10/05/23 release docusate sodium 100 mg capsule 100 mg PO BID #30 caps 10/15/23 finasteride 5 mg tablet 5 mg PO DAILY #60 tabs 10/15/23 levofloxacin 750 mg tablet 750 mg PO Q24H #18 tabs 10/15/23 magnesium hydroxide 400 mg/5 mL 30 ml PO DAILY PRN Constipation 10/15/23 oral suspension (Milk of Magnesia) #355 mL oxycodone 5 mg capsule 5 mg PO BID PRN pain #6 caps 10/15/23 polyethylene glycol 3350 17 17 g PO DAILY #119 grams 10/15/23 gram/dose oral powder (Miralax) cilostazol 100 mg tablet 100 mg PO BID #180 tabs 10/16/23 irbesartan 150 mg tablet 150 mg PO DAILY 90 days #90 tabs 10/27/23 phenazopyridine 100 mg tablet 100 mg PO BID PRN pain 5 days #15 10/28/23 (Pyridium) tabs Allergies Allergy/AdvReac Type Severity Reaction Status Date / Time No Known Allergies Allergy Verified 11/01/23 09:31 [No Known Allergies*] Review of Systems Review of Systems: Yes all other systems are reviewed and are negative PMFSH Past Medical History Attestation statement: The following information was validated with the patient. Source: old records reviewed and nursing notes reviewed Medical History Osteoarthritis of knees, bilateral Type 2 diabetes mellitus with unspecified complications Sepsis Hyperthyroidism Multinodular thyroid HLD (hyperlipidemia) HTN (hypertension) Obesity NSTEMI (non-ST elevated myocardial infarction) CAD (coronary artery disease) Diabetes mellitus Myocardial infarct Surgical History History of esophagogastroduodenoscopy (EGD) Hx of colonoscopy Hx of ultrasound guided needle biopsy Hx of CABG (~07/2016) Family History Family History Mother Cardiovascular disease Father Medical history unknown Sister Cancer Brother Cancer Social History Social History Household Members: Family Housing: Apartment Do you presently have visiting nurse or other home services: Yes Alcohol intake: former Patient Tobacco Use Status: Former Tobacco user Smoked in Last 30 Days: No Use of substances other than those prescribed or required for medical reasons: No Advance Directives: No Advance Directives Information Provided: No service: No Current occupational status: unemployed Physical Exam Vital Signs: Vital Signs: Last Vital Signs Temp 98.1 F 11/01/23 13:16 Pulse 70 11/01/23 13:16 Resp 18 11/01/23 13:16 BP 139/63 11/01/23 13:16 Pulse Ox 96 11/01/23 13:16 O2 Del Method Room Air 11/01/23 13:16 BMI result Body Mass Index 32.9 vss Appearance: Alert.? Oriented X3.? No acute distress.? Head: Normocephalic, atraumatic, no step-offs or deformities Eyes: Pupils equal, round and reactive to light.? CVS: Normal heart rate and rhythm.? Pulses normal.? Respiratory: No respiratory distress.? Breath sounds normal.? Abdomen: Soft and suprapub region .? Skin: Skin warm and dry.? Normal skin color.? Normal skin turgor.? Extremities: No lower extremity edema.? No calf ttp. 5/5 strength to bilateral upper and lower extremities Back: No midline tenderness, no C-spine tenderness, full range of motion, no CVA tenderness bilaterally Neuro: Oriented X 3.? No motor deficit.? No sensory deficit. CN 2-12 intact Course Reevaluation(s) Reevaluation #1: CBC with a normocytic anemia appears to be around his baseline. Chemistry no acute findings needing intervention. ABd pelvis CT pending Time: 12:22 Reevaluation #2: Sign out to Alexis pending CT abd and pelvis and Urology input dispo d/c vs admit Time: 15:48 Medications Administered Discontinued Medications Generic Name Dose Route Start Last Admin Trade Name Jerryq PRN Reason Stop Dose Admin Ceftriaxone Sodium 1 gm/ 50 mls @ 100 mls/hr 11/01/23 12:01 11/01/23 13:51 Sodium Chloride IV 11/01/23 12:30 Infused ONCE ONE Infusion Iohexol 100 ml 11/01/23 14:00 11/01/23 14:01 Iohexol 350 Mg/Ml 100 Ml Infus..Btl IV 11/01/23 14:01 85 ml ONCE ONE Administration Phenazopyridine HCl 100 mg 11/01/23 12:21 11/01/23 13:21 Phenazopyridine Hcl 100 Mg Tablet PO 11/01/23 12:22 100 mg ONCE ONE Administration Medical Decision Making Medical Decision Making [facility] Narrative: 1018 73-year-old male presents with complaints regarding his Hair catheter which was placed on 10/21/2023 he was seen by Urology and was told that his calf would stay until 11/20/2023. He does not have a leg bag. Recently finished antibiotics Physical exam benign. Normal draining Hair catheter bag without clots or blood. Will rule out not resolved UTI. No signs of pyelo no signs of urinary retention unlikely blood clots. He is likely having bladder spasms from Hair catheterization Plan urine, basic labs. Differential Diagnosis Differential Diagnoses: The differential diagnosis associated with the presentation includes Will rule out not resolved UTI. No signs of pyelo no signs of urinary retention unlikely blood clots. He is likely having bladder spasms from Hair catheterization Admission/Observation Consideration of admission/observation: Escalation of care including admission/observation considered Possible Lab Data [facility] Lab Attestation statement: I reviewed the patient's lab results. 11/01/23 11:39 11/01/23 11:39 Labs: Lab Results 11/01/23 11/01/23 Range/Units 11:39 12:59 WBC 8.0 (4.8-10.8) X10*3/uL RBC 3.96 L (4.60-5.80) X10*6/uL Hgb 11.2 L (14.0-18.0) g/dl Hct 33.6 L (42.0-52.0) % MCV 84.8 (80.0-98.0) fL MCH 28.3 (27.0-33.0) pg MCHC 33.3 (31.0-36.0) g/dl RDW 15.3 (11.0-16.0) % Plt Count 338 (160-400) X10*3/uL MPV 8.3 L (9.4-12.4) fL Immature Gran % (Auto) 0.2 (0.0-0.4) % Neut % (Auto) 57.7 (45-73) % Lymph % (Auto) 31.0 (20-40) % [place] % (Auto) 8.6 (2-11) % Eos % (Auto) 2.4 (0-4) % Baso % (Auto) 0.1 (0-2) % Lymph # (Auto) 2.5 (1.2-4.9) X10*3/uL [place] # (Auto) 0.7 (0.1-1.2) X10*3/uL Eos # (Auto) 0.2 (0.0-0.4) X10*3/uL Baso # (Auto) 0.0 (0.0-0.2) X10*3/uL Abs Immat Gran (auto) 0.02 (0.00-0.03) X10*3/uL Absolute Neuts (auto) 4.6 (2.0-8.3) x10*3/uL Absolute Nucleated RBC 0.000 (0.0-0.012) X10*3/uL Nucleated RBC % (auto) 0.0 (0.0-0.2) /100WBC Sodium 138 (135-145) mmol/L Potassium 4.7 D (3.3-5.1) mmol/L Chloride 105 (96-108) mmol/L Carbon Dioxide 24 (22-29) mmol/L Anion Gap 14 (12-20) BUN 17 H (9-16) mg/dL Creatinine 0.98 (0.5-1.4) mg/dL Estim Creat Clear Calc 69.3 Estimated GFR > 60 Random Glucose 134 H (60-115) mg/dL Lactic Acid 0.7 (0.5-2.0) mmol/L Calcium 9.1 (8.4-10.2) mg/dL Total Bilirubin 0.4 (0.0-1.0) mg/dL AST 17 (5-37) U/L ALT 14 (0-40) U/L Alkaline Phosphatase 93 (39-117) U/L Total Protein 7.6 (6.5-8.0) g/dL Albumin 3.3 L (3.5-5.0) g/dL Urine Color [place] Urine Appearance Hazy Urine pH 6.5 (5.0-9.0) Ur Specific [place] 1.025 (1.005-1.025) Urine Protein 100 (2+) H (Neg-Trace) mg/dL Urine Glucose (UA) 100 H (Negative) mg/dL Urine Ketones Negative (Negative) mg/dL Urine Blood Small (1+) H (Negative) Urine Nitrite Positive H (Negative) Ur Leukocyte Esterase Moderate (2+) H (Negative) Urine RBC 0-2 (0-2) /HPF Urine WBC 21-50 (0-5) /HPF Ur Squamous Epith Cells 0-2 (0-2) /HPF Urine Bacteria None Seen (None Seen) Hyaline Casts 0-2 (0-2) /LPF Urine Yeast Present External Record Review External record reviewed: Inpatient record, Office record, Outpatient record, Prior outpatient labs, Prior outpatient radiology, Primary care record and Outside ED record Chronic Conditions Patient?s care impacted by: Diabetes, Hypertension and Other (Please review HPI) Critical Care Time Critical Care Time Critical Care Time: Yes Total Critical Care Time: 45 Attestation: I attest to this time spent taking care of the patient, obtaining history, physical, reviewing labs, imaging, treatment of patients condition +/- specialist/hospitalist consult Discharge Plan Discharge Clinical Impression: UTI (urinary tract infection), Complication of Hair catheter Patient Disposition: Admitted As Inpatient Print Language: Liberian
[2023-11-01 11:49] LABS: MANUAL DIFF FLAG NO
[2023-11-01 11:51] LABS: Basophils Percent Auto 0.1 % (0-2); Eosinophils Absolute Auto 0.2 X10*3/uL (0.0-0.4); Eosinophils Percent Auto 2.4 % (0-4); Hematocrit 33.6 % (42.0-52.0); Hemoglobin 11.2 g/dl (14.0-18.0); Imm Gran Abs Auto 0.02 X10*3/uL (0.00-0.03); Imm Gran Pct Auto 0.2 % (0.0-0.4); Lymphocytes Absolute Auto 2.5 X10*3/uL (1.2-4.9); Mean Corpuscular HGB Conc 33.3 g/dl (31.0-36.0); Mean Corpuscular Hemoglobin 28.3 pg (27.0-33.0); Mean Corpuscular Volume 84.8 fL (80.0-98.0); Mean Platelet Volume 8.3 fL (9.4-12.4); Monocytes Absolute Auto 0.7 X10*3/uL (0.1-1.2); Monocytes Percent Auto 8.6 % (2-11); Neutrophils Absolute Auto 4.6 x10*3/uL (2.0-8.3); Neutrophils Percent Auto 57.7 % (45-73); Platelet Count 338 X10*3/uL (160-400); Red Blood Count 3.96 X10*6/uL (4.60-5.80); Red Cell Distribution Width 15.3 % (11.0-16.0)
[2023-11-01 11:52] LABS: Appearance Urine Hazy; Glucose Urine UA 100 mg/dL (Negative); Leukocyte Esterase Urine Moderate (2+) (Negative); Nitrite Urine Positive (Negative); PH 6.5 (5.0-9.0); Specific Gravity - Urine 1.025 (1.005-1.025); UMIC TRIGGER UACC YES; Urine Blood Small (1+) (Negative); Urine Ketones Negative (Negative); Urine Protein 100 (2+) mg/dL (Neg-Trace)
[2023-11-01 11:57] LABS: Color Urine Orange
[2023-11-01 12:10] LABS: Bacteria Urine None Seen (None Seen); Hyaline Casts Urine 0-2 /LPF (0-2); RBC Urine 0-2 /HPF (0-2); Squamous Epithelial Cell Urine 0-2 /HPF (0-2); UACC Culture Trigger YES; WBC Urine 21-50 /HPF (0-5)
[2023-11-01 12:11] LABS: Alanine Aminotransferase 14 U/L (0-40); Albumin Level 3.3 g/dL (3.5-5.0); Alkaline Phosphatase 93 U/L (39-117); Anion Gap 14 (12-20); Aspartate Amino Transferase 17 U/L (5-37); Bilirubin Total 0.4 mg/dL (0.0-1.0); Blood Urea Nitrogen 17 mg/dL (9-16); Calcium 9.1 mg/dL (8.4-10.2); Carbon Dioxide 24 mmol/L (22-29); Chloride 105 mmol/L (96-108); Creatinine Clr Calc Pharmacy 69.3; Estimated Glomerular Filt Rate > 60; Glucose Random 134 mg/dL (60-115); Potassium 4.7 mmol/L (3.3-5.1); Sodium 138 mmol/L (135-145); Total Protein 7.6 g/dL (6.5-8.0)
--- NOTE | 2023-11-01 13:05 | PC.NURSE ---
iv was held off as provider was speaking with urologist about IV vs PO abx, it was decided to do a ct scan with contrast so IV was placeed- pt was a difficult stick, 1st set blood cultures drawn, lactic drawn, pt is not a septic protocol at this time as he is afebrile without a white count. pt has + uti.
[2023-11-01] MEDS: Phenazopyridine HCL 100 MG TABLET PO (13:21)
[2023-11-01] MEDS: cefTRIAXone sodium 1 GM in 0.9 % Sodium Chloride 50 ML IV (13:21)
[2023-11-01 13:24] LABS: Lactic Acid 0.7 mmol/L (0.5-2.0)
--- NOTE | 2023-11-01 13:24 | PC.NURSE ---
pt to ct scan
[2023-11-01] MEDS: iohexoL 350 MG/ML 100 ML INFUS..BTL IV (14:01)
--- NOTE | 2023-11-01 16:04 | PHA.MEDREC ---
Addendum entered by Lokesh [facility] 11/01/23 16:45: MED REC CHECKED BY [facility] Original Note: Pharmacy Consult ? Medication Reconciliation Pharmacy has completed the medication reconciliation. Utilized routeman services.
--- NOTE | 2023-11-01 17:00 | PM.IMHP ---
History of Present Illness Date of Service: 11/01/23 Attending physician on admission: Scotty Hill Chief Complaint: Prostate and rectal pain Pt is a 73-year-old male with a PMH significant for?CAD s/p CABG in 2017, bladder outlet obstruction with chronic indwelling Hair, HTN, HTN, insulin-dependent type 2 diabetes, BPH, DEANDRE on CPAP, and mood disorder who presents to the ED with?worsening bladder, prostate, and rectal pain. Patient was recently hospitalized from 10/10-10/14 and treated for acute prostatitis with possible prostate abscess. Was discharged home on levofloxacin 750 mg p.o. daily for a total of 21 days that ended yesterday. Patient states has been compliant with medications. Followed up with Dr. Carney in Urology on 10/21/2023 when he had Hair catheter placed, set to be removed 11/20/2023. Patient states has had continued suprapubic discomfort, and discomfort with urination, as well as significant rectal pain. Presents today due to worsening symptoms that have not resolved with home antibiotics. Patient otherwise has no acute medical complaints. No chest pain/pressure, palpitations. Denies shortness or breath or difficulty breathing. No fever, chills, nausea, vomiting, and diarrhea. In the ED pt was Labs were grossly unremarkable and baseline for patient. No leukocytosis. Stable H& H. No significant electrolyte abnormalities. Renal function baseline. Hepatic function WNL. CT?of abdomen and pelvis found evidence prostatitis with increased abscess formation, new perirectal abscess, and new left seminal vesicle enlargement. Pt was treated with ceftriaxone and phenazopyridine. Pt will be admitted to the hospital for treatment and further evaluation of acute prostatitis with worsening abscess and new perianal abscess that has failed outpatient therapy. Review of Systems Review of Systems: Suprapubic pain Rectal pain No fever, chills, nausea, vomiting, diarrhea, abdominal pain No chest pain/pressure, palpitations Denies shortness a breath or difficulty breathing [facility] Medical History Osteoarthritis of knees, bilateral Type 2 diabetes mellitus with unspecified complications Sepsis Hyperthyroidism Multinodular thyroid HLD (hyperlipidemia) HTN (hypertension) Obesity NSTEMI (non-ST elevated myocardial infarction) CAD (coronary artery disease) Diabetes mellitus Myocardial infarct Family History Mother Cardiovascular disease Father Medical history unknown Sister Cancer Brother Cancer Surgical History History of esophagogastroduodenoscopy (EGD) Hx of colonoscopy Hx of ultrasound guided needle biopsy Hx of CABG (~07/2016) Social History Household Members: Family Housing: Apartment Do you presently have visiting nurse or other home services: Yes Alcohol intake: former Patient Tobacco Use Status: Former Tobacco user Smoked in Last 30 Days: No Use of substances other than those prescribed or required for medical reasons: No Advance Directives: No Advance Directives Information Provided: No Nutrition Risks: No Nutritional Risk service: No Current occupational status: unemployed Meds Allergies Allergy/AdvReac Type Severity Reaction Status Date / Time No Known Allergies Allergy Verified 11/01/23 09:31 [No Known Allergies*] Home Medications ?Medication ?Instructions ?Recorded ?Confirmed ?Last Taken ?Type escitalopram oxalate 10 mg tablet 10 mg PO DAILY 02/07/20 11/01/23 11/01/23 09:00 History metformin 1,000 mg tablet 1,000 mg PO DAILY 02/07/20 11/01/23 11/01/23 09:00 History insulin glargine 100 unit/mL (3 88 unit subcut DAILY 10/30/21 11/01/23 11/01/23 09:00 History mL) subcutaneous pen (Lantus Solostar U-100 Insulin) trazodone 100 mg tablet 100 mg PO BEDTIME 02/23/23 11/01/23 Unknown History amlodipine 10 mg tablet 10 mg PO DAILY 09/08/23 11/01/23 11/01/23 09:00 History aspirin 81 mg tablet,delayed 81 mg PO DAILY 09/08/23 11/01/23 11/01/23 09:00 History release ezetimibe 10 mg tablet 10 mg PO DAILY 09/08/23 11/01/23 11/01/23 09:00 History insulin lispro 100 unit/mL 16 unit subcut TIDAC 09/08/23 11/01/23 11/01/23 09:00 History subcutaneous pen (Humalog KwikPen (U-100) Insulin) isosorbide mononitrate 60 mg 60 mg PO DAILY 09/08/23 11/01/23 11/01/23 09:00 History tablet,extended release 24 hr rosuvastatin 20 mg tablet 20 mg PO DAILY 09/08/23 11/01/23 11/01/23 09:00 History dulaglutide 4.5 mg/0.5 mL 4.5 mg subcut FR 10/11/23 11/01/23 Unknown History subcutaneous pen injector (Trulicity) melatonin 3 mg tablet 3 mg PO BEDTIME PRN Sleep 10/11/23 11/01/23 Unknown History phenazopyridine 100 mg tablet 100 mg PO BID PRN urinary pain 11/01/23 11/01/23 Unknown History (Pyridium) Physical Exam Vital Signs and Narrative: Vital Signs: Last Vital Signs Temp 98.2 F 11/01/23 16:29 Pulse 82 11/01/23 16:29 Resp 16 11/01/23 16:29 BP 142/91 H 11/01/23 16:29 Pulse Ox 97 11/01/23 16:29 O2 Del Method Room Air 11/01/23 13:16 BMI result Body Mass Index 32.9 General: AOx3, looks uncomfortable, in no acute distress Resp: CTA bilaterally CVS: S1, S2, RRR GI: +BS, no distention, suprapubic tenderness Back: No CVA tenderness bilaterally : Hair catheter in place Skin: Warm, dry Neuro: Cranial nerves II-XII grossly intact bilaterally. Motor grossly intact bilaterally Extremities: No edema Psych: Appropriate affect Results Labs 11/01/23 11:39 11/01/23 11:39 Labs: Laboratory Results - last 24 hr 11/01/23 11/01/23 11:39 12:59 MCV 84.8 MCH 28.3 MCHC 33.3 RDW 15.3 Plt Count 338 MPV 8.3 L Immature Gran % (Auto) 0.2 Neut % (Auto) 57.7 Lymph % (Auto) 31.0 [place] % (Auto) 8.6 Eos % (Auto) 2.4 Baso % (Auto) 0.1 Lymph # (Auto) 2.5 [place] # (Auto) 0.7 Eos # (Auto) 0.2 Baso # (Auto) 0.0 Abs Immat Gran (auto) 0.02 Absolute Neuts (auto) 4.6 Absolute Nucleated RBC 0.000 Nucleated RBC % (auto) 0.0 Anion Gap 14 Estim Creat Clear Calc 69.3 Estimated GFR > 60 Random Glucose 134 H Lactic Acid 0.7 Calcium 9.1 Total Bilirubin 0.4 AST 17 ALT 14 Alkaline Phosphatase 93 Total Protein 7.6 Albumin 3.3 L Urine Color [place] Urine Appearance Hazy Urine pH 6.5 Ur Specific [place] 1.025 Urine Protein 100 (2+) H Urine Glucose (UA) 100 H Urine Ketones Negative Urine Blood Small (1+) H Urine Nitrite Positive H Ur Leukocyte Esterase Moderate (2+) H Urine RBC 0-2 Urine WBC 21-50 Ur Squamous Epith Cells 0-2 Urine Bacteria None Seen Hyaline Casts 0-2 Urine Yeast Present Imaging Radiologist's Impressions: Impressions Abdomen/Pelvis CT 11/01/23 13:29 IMPRESSION: 1. Markedly abnormal prostate with multiple low-attenuation areas which have increased in size since the prior study. There is also enlargement of the left seminal vesicle. Findings are consistent with prostatitis with abscess formation with new perirectal abscess and new left seminal vesicle enlargement possibly secondary to infection as well. 2. Other incidental findings as described above including markedly thickened bladder wall, sigmoid diverticulosis and degenerative changes in the spine. Fleischner guidelines were followed. Electronically signed by: James Cota MD 11/01/2023 03:51 PM EDT RP Assessment and Plan (1) Prostatic abscess: Status: Acute (2) Acute prostatitis: Status: Acute Plan Pt is a 73-year-old male with a PMH significant for?CAD s/p CABG in 2017, bladder outlet obstruction with chronic indwelling Hair, HTN, HTN, insulin-dependent type 2 diabetes, BPH, DEANDRE on CPAP, and mood disorder who presents to the ED with?worsening bladder, prostate, and rectal pain. Acute prostatitis complicated by abscess CT of abd/and pelvis showing prostatitis with increased abscess from prior, new perirectal abscess, and new left seminal vesicle enlargement Patient completed 21 day course of levofloxacin p.o. yesterday No sepsis: No fever, tachycardia, tachypnea, or leukocytosis; lactic acid WNL Patient was started on broad-spectrum antibiotics in the ED Will treat with Zosyn, started 11/01/[address] Analgesics for pain management General surgery consult Urology consult Infectious disease consult NPO after midnight for possible surgical procedure in the morning Insulin-dependent type 2 diabetes Sliding-scale insulin, Lantus Hold metformin HTN Continue amlodipine, irbesartan, metoprolol CAD/HLD Continue ezetimibe, isosorbide mononitrate, statin Mood disorder Continue home mood stabilizers DEANDRE CPAP at night Full Code Attending:?Dr. Shah DVT Prophylaxis: Pneumatic compression due to possible surgical procedure in the morning Pt will require a hospitalization of at least two nights for treatment and further examination of acute prostatitis with worsening abscess and new perirectal abscess. Given that he has failed outpatient therapy with p.o. antibiotics, he will require in patient level care for administration of IV antibiotics, specialist consultation, and likely surgical procedure for abscess drainage. Quality Stroke Does the patient have a stroke diagnosis?: No VTE Prior VTE?: No VTE Risk Level:: Medical - moderate - high VTE Device Contraindication: N/A - Device Ordered VTE Drug Contraindication: Treatment Not Indicated
--- NOTE | 2023-11-01 17:32 | PC.NURSE ---
pt a&ox3, stein cath patient/draining- pt continues to state he has rectal area pain, pt aware he is being admitted, vitals stable, pt to be NPO after midnight. call pro within reach, will continue to monitor
[2023-11-01] MEDS: Morphine Sulfate 2 MG/ML CARTRIDGE 4 MG IVPUSH ×2 (18:38→23:20)
[2023-11-01] MEDS: ondansetron HCL 4 MG/2 ML VIAL IVPUSH (18:38)
[2023-11-01] MEDS: Piperacillin Sodium/Tazobactam 3.375 GM in 0.9 % Sodium Chloride 50 ML IV ×2 (18:38→23:29)
--- NOTE | 2023-11-01 18:41 | PC.NURSE ---
pt moved over to hospital bed for comfort, ate 50% of dinner, pt c/o 11/18 rectal area pain- medicated with morphine per order, iv abx hung per order, stein cath patient/draining. call pro within reach, will continue to monitor
[2023-11-01] MEDS: Omeprazole 40 MG CAPSULE.DR PO (21:59)
[2023-11-01] MEDS: Docusate Sodium 100 MG CAPSULE PO (21:59)
[2023-11-01] MEDS: Doxazosin Mesylate 2 MG TABLET 4 MG PO (21:59)
[2023-11-01] MEDS: cilostazoL 100 MG TABLET PO (21:59)
[2023-11-01] MEDS: traZODone HCL 100 MG TABLET PO (22:00)
[2023-11-01] MEDS: 0.9 % Sodium Chloride Flush 3 ML SYRINGE IVFLUSH (22:00)
[2023-11-01] MEDS: Metoprolol Tartrate 50 MG TABLET PO (22:00)
[2023-11-02] VITALS (13 sets, daily range): BP systolic 134–164; BP diastolic 60–87; PULSE 77–117; RESP 14–20; TEMP 36–37.5; O2SAT 93–100
[2023-11-02] MEDS: Piperacillin Sodium/Tazobactam 3.375 GM in 0.9 % Sodium Chloride 50 ML IV ×4 (05:50→23:34)
[2023-11-02 07:32] LABS: Anion Gap 15 (12-20); Blood Urea Nitrogen 12 mg/dL (9-16); Calcium 9.4 mg/dL (8.4-10.2); Carbon Dioxide 26 mmol/L (22-29); Chloride 102 mmol/L (96-108); Creatinine Clr Calc Pharmacy 69.5; Estimated Glomerular Filt Rate > 60; Glucose Random 153 mg/dL (60-115); Potassium 3.8 mmol/L (3.3-5.1); Sodium 139 mmol/L (135-145)
[2023-11-02] MEDS: Phenazopyridine HCL 100 MG TABLET PO ×2 (07:42→17:07)
[2023-11-02] MEDS: amLODIPine Besylate 10 MG TABLET PO (07:43)
[2023-11-02] MEDS: Docusate Sodium 100 MG CAPSULE PO ×2 (07:43→20:17)
[2023-11-02] MEDS: Isosorbide Mononitrate 60 MG TAB.ER.24H PO (07:43)
[2023-11-02] MEDS: Metoprolol Tartrate 50 MG TABLET PO ×2 (07:43→20:17)
[2023-11-02] MEDS: Atorvastatin Calcium 80 MG TABLET PO (07:43)
[2023-11-02] MEDS: Ezetimibe 10 MG TABLET PO (07:44)
[2023-11-02] MEDS: cilostazoL 100 MG TABLET PO ×2 (07:44→20:18)
[2023-11-02] MEDS: Finasteride 5 MG TABLET PO (07:44)
[2023-11-02] MEDS: Omeprazole 40 MG CAPSULE.DR PO ×2 (07:44→20:17)
[2023-11-02] MEDS: Escitalopram Oxalate 10 MG TABLET PO (07:44)
--- NOTE | 2023-11-02 08:12 | P.CNUR_ITS ---
History of Present Illness Consult details Consult date: 11/02/23 Narrative: 73-year-old male with a PMH significant for?CAD s/p CABG in 2017, bladder outlet obstruction with chronic indwelling Hair, HTN, HTN, insulin-dependent type 2 diabetes, BPH, DEANDRE on CPAP, and mood disorder who presents to the ED with?worsening bladder, prostate, and rectal pain. Patient was recently hospitalized from 10/10-10/14 and treated for acute prostatitis with possible prostate abscess. Was discharged home on levofloxacin 750 mg p.o. daily for a total of 21 days that ended yesterday. Patient states has been compliant with medications. Followed up with Dr. Carney in Urology on 10/21/2023 when he had Hair catheter placed, set to be removed 11/20/2023. Patient states has had continued suprapubic discomfort, and discomfort with urination, as well as significant rectal pain. Presents today due to worsening symptoms that have not resolved with home antibiotics. Patient otherwise has no acute medical complaints. Review of Systems 2 Review of Systems: Yes all other systems are reviewed and are negative Constitutional: Constitutional: Reports no additional constitutional complaints Eyes: Eyes: Reports no additional eye complaints ENT: Reports system reviewed and no additional complaints, except as documented Cardiovascular: Cardiovascular: Reports no additional cardiovascular complaints Respiratory: Respiratory: Reports no additional respiratory complaints Gastrointestinal: Gastrointestinal: Reports no additional gastrointestinal complaints Genitourinary: Genitourinary: Reports as per HPI Musculoskeletal: Musculoskeletal: Reports no additional musculoskeletal complaints Integumentary/Breasts: Skin/Breast: Reports system reviewed and no additional complaints, except as docu Neurologic: Reports system reviewed and no additional complaints, except as documented Psychiatric: Psychiatric: Reports no additional psychiatric complaints Endocrine: Endocrine: Reports no additional endocrine complaints Hematologic/Lymphatic: Hematologic/Lymphatic: Reports no additional hematologic/lymphatic complaints Allergic/Immunologic: Allergic/Immunologic: Reports no additional allergic/immunologic complaints [facility] Past Medical History Medical History Osteoarthritis of knees, bilateral Type 2 diabetes mellitus with unspecified complications Sepsis Hyperthyroidism Multinodular thyroid HLD (hyperlipidemia) HTN (hypertension) Obesity NSTEMI (non-ST elevated myocardial infarction) CAD (coronary artery disease) Diabetes mellitus Myocardial infarct Family History Family History Mother Cardiovascular disease Father Medical history unknown Sister Cancer Brother Cancer Surgical History Surgical History History of esophagogastroduodenoscopy (EGD) Hx of colonoscopy Hx of ultrasound guided needle biopsy Hx of CABG (~07/2016) Social History Social History Household Members: Family Housing: Apartment Are you a primary acute care clinical nurse specialist to a significant other at home: No Do you presently have visiting nurse or other home services: No Alcohol intake: former Patient Tobacco Use Status: Former Tobacco user service: No Current occupational status: unemployed Meds Allergies Allergy/AdvReac Type Severity Reaction Status Date / Time No Known Allergies Allergy Verified 11/02/23 13:38 [No Known Allergies*] Active Medications: Current Medications Acetaminophen (Acetaminophen 325 Mg Tablet) 650 mg PO Q6H PRN PRN Reason: Pain, Mild (Pain Scale 1-3), fever or headache Amlodipine Besylate (Amlodipine Besylate 10 Mg Tablet) 10 mg PO DAILY [facility]; Protocol Last Admin: 11/02/23 07:43 Dose: 10 mg Atorvastatin Calcium (Atorvastatin Calcium 80 Mg Tablet) 80 mg PO DAILY [facility] Last Admin: 11/02/23 07:43 Dose: 80 mg Benzonatate (Benzonatate 100 Mg Capsule) 100 mg PO TID PRN PRN Reason: Cough Calcium Carbonate (Calcium Carbonate 750 Mg Tab.Chew) 750 mg PO Q4H PRN PRN Reason: Heartburn Cilostazol (Cilostazol 100 Mg Tablet) 100 mg PO BID [facility] Last Admin: 11/02/23 07:44 Dose: 100 mg Docusate Sodium (Docusate Sodium 100 Mg Capsule) 100 mg PO BID [facility] Last Admin: 11/02/23 07:43 Dose: 100 mg Doxazosin Mesylate (Doxazosin Mesylate 2 Mg Tablet) 4 mg PO BEDTIME [facility]; Protocol Last Admin: 11/01/23 21:59 Dose: 4 mg Ezetimibe (Ezetimibe 10 Mg Tablet) 10 mg PO DAILY [facility] Last Admin: 11/02/23 07:44 Dose: 10 mg Escitalopram Oxalate (Escitalopram Oxalate 10 Mg Tablet) 10 mg PO DAILY [facility] Last Admin: 11/02/23 07:44 Dose: 10 mg Finasteride (Finasteride 5 Mg Tablet) 5 mg PO DAILY [facility] Last Admin: 11/02/23 07:44 Dose: 5 mg Piperacillin Sod/Tazobactam (Sod 3.375 gm/ Sodium Chloride) 50 mls @ 100 mls/hr IV Q6H [facility] Last Infusion: 11/02/23 06:22 Dose: Infused Isosorbide Mononitrate (Isosorbide Mononitrate 60 Mg Tab.Er.24h) 60 mg PO DAILY [facility]; Protocol Last Admin: 11/02/23 07:43 Dose: 60 mg Magnesium Hydroxide (Milk Of Magnesia 30 Ml Oral.Susp) 30 ml PO DAILY PRN PRN Reason: Constipation Magnesium Hydroxide (Milk Of Magnesia 30 Ml Oral.Susp) 30 ml PO DAILY PRN PRN Reason: Constipation Melatonin (Melatonin 3 Mg Tablet) 6 mg PO BEDTIME PRN PRN Reason: Insomnia Metoprolol Tartrate (Metoprolol Tartrate 50 Mg Tablet) 50 mg PO BID [facility]; Protocol Last Admin: 11/02/23 07:43 Dose: 50 mg Morphine Sulfate (Morphine Sulfate 2 Mg/Ml Cartridge) 4 mg IVPUSH Q4H PRN; Protocol PRN Reason: Pain, Severe (Pain Scale 7-10) Last Admin: 11/01/23 23:20 Dose: 4 mg Nitroglycerin (Nitroglycerin 0.4 Mg Tab.Subl) 0.4 mg SUBLINGUAL Q5M PRN PRN Reason: Chest Pain Omeprazole (Omeprazole 40 Mg Capsule.Dr) 40 mg PO BID [facility] Last Admin: 11/02/23 07:44 Dose: 40 mg Ondansetron HCl (Ondansetron Hcl 4 Mg/2 Ml Vial) 4 mg IVPUSH Q8H PRN PRN Reason: Nausea and Vomiting Last Admin: 11/01/23 18:38 Dose: 4 mg Oxycodone HCl (Oxycodone Hcl Immed Release 5 Mg Tablet) 5 mg PO BID PRN PRN Reason: Pain, Moderate(Pain Scale 4-6) Phenazopyridine HCl (Phenazopyridine Hcl 100 Mg Tablet) 100 mg PO BIDWM [facility] Stop: 11/03/23 17:01 Last Admin: 11/02/23 07:42 Dose: 100 mg Polyethylene Glycol (Polyethylene Glycol 3350 17 Gm Powd.Pack) 17 gm PO DAILY [facility] Last Admin: 11/02/23 07:42 Dose: Not Given Sodium Chloride (0.9 % Sodium Chloride Flush 3 Ml Syringe) 3 ml IVFLUSH QSHIFT [facility] Last Admin: 11/02/23 07:47 Dose: Not Given Trazodone HCl (Trazodone Hcl 100 Mg Tablet) 100 mg PO BEDTIME [facility] Last Admin: 11/01/23 22:00 Dose: 100 mg Home Medications ?Medication ?Instructions ?Recorded ?Confirmed ?Last Taken ?Type escitalopram oxalate 10 mg tablet 10 mg PO DAILY 02/07/20 11/01/23 11/01/23 09:00 History metformin 1,000 mg tablet 1,000 mg PO DAILY 02/07/20 11/01/23 11/01/23 09:00 History insulin glargine 100 unit/mL (3 88 unit subcut DAILY 10/30/21 11/01/23 11/01/23 09:00 History mL) subcutaneous pen (Lantus Solostar U-100 Insulin) trazodone 100 mg tablet 100 mg PO BEDTIME 02/23/23 11/01/23 Unknown History amlodipine 10 mg tablet 10 mg PO DAILY 09/08/23 11/01/23 11/01/23 09:00 History aspirin 81 mg tablet,delayed 81 mg PO DAILY 09/08/23 11/01/23 11/01/23 09:00 History release ezetimibe 10 mg tablet 10 mg PO DAILY 09/08/23 11/01/23 11/01/23 09:00 History insulin lispro 100 unit/mL 16 unit subcut TIDAC 09/08/23 11/01/23 11/01/23 09:00 History subcutaneous pen (Humalog KwikPen (U-100) Insulin) isosorbide mononitrate 60 mg 60 mg PO DAILY 09/08/23 11/01/23 11/01/23 09:00 History tablet,extended release 24 hr rosuvastatin 20 mg tablet 20 mg PO DAILY 09/08/23 11/01/23 11/01/23 09:00 History dulaglutide 4.5 mg/0.5 mL 4.5 mg subcut FR 10/11/23 11/01/23 Unknown History subcutaneous pen injector (Trulicity) melatonin 3 mg tablet 3 mg PO BEDTIME PRN Sleep 10/11/23 11/01/23 Unknown History phenazopyridine 100 mg tablet 100 mg PO BID PRN urinary pain 11/01/23 11/01/23 Unknown History (Pyridium) Physical Exam 2 Vital Signs: Vital Signs: Last Vital Signs Temp 99.5 F 11/02/23 07:25 Pulse 110 H 11/02/23 07:25 Resp 16 11/02/23 07:25 BP 142/65 H 11/02/23 07:25 Pulse Ox 96 11/02/23 07:25 O2 Del Method Room Air 11/02/23 07:25 BMI result Body Mass Index 31.1 Const: General: no acute distress and well developed O rientation/consciousness: patient oriented x3 HEENT: Head: Yes normocephalic and Yes atraumatic Eyes: Conjunctivae: conjunctivae normal Neck: Neck: Yes normal visual inspection Chest: Chest palpation & inspection: normal inspection of the chest Resp: Effort & Inspection: normal respiratory effort Cardio: Rate: regular rate GI: Inspection: Yes normal to inspection Palpation (GI): Soft to palpation : Other: rectal exam per general surgery, induration, thickening Neuro: General: patient oriented x3 Extrem: General: No pedal edema Psych: Appearance: grossly normal Affect: normal affect Results Labs 11/06/23 05:46 11/06/23 05:46 Labs: Abnormal lab results 11/01/23 11/02/23 Range/Units 11:39 05:57 RBC 3.96 L (4.60-5.80) X10*6/uL Hgb 11.2 L (14.0-18.0) g/dl Hct 33.6 L (42.0-52.0) % MPV 8.3 L (9.4-12.4) fL BUN 17 H (9-16) mg/dL Random Glucose 134 H 153 H (60-115) mg/dL Albumin 3.3 L (3.5-5.0) g/dL Urine Protein 100 (2+) H (Neg-Trace) mg/dL Urine Glucose (UA) 100 H (Negative) mg/dL Urine Blood Small (1+) H (Negative) Urine Nitrite Positive H (Negative) Ur Leukocyte Esterase Moderate (2+) H (Negative) Short CBC 11/01/23 Range/Units 11:39 WBC 8.0 (4.8-10.8) X10*3/uL Hgb 11.2 L (14.0-18.0) g/dl Hct 33.6 L (42.0-52.0) % Plt Count 338 (160-400) X10*3/uL BMP 11/01/23 11/02/23 11:39 05:57 Sodium 138 139 Potassium 4.7 D 3.8 Chloride 105 102 Carbon Dioxide 24 26 BUN 17 H 12 Creatinine 0.98 0.95 Calcium 9.1 9.4 Liver Function 11/01/23 Range/Units 11:39 Total Bilirubin 0.4 (0.0-1.0) mg/dL AST 17 (5-37) U/L ALT 14 (0-40) U/L Alkaline Phosphatase 93 (39-117) U/L Albumin 3.3 L (3.5-5.0) g/dL Urine 11/01/23 Range/Units 11:39 Urine Color [place] Urine Appearance Hazy Urine pH 6.5 (5.0-9.0) Ur Specific [place] 1.025 (1.005-1.025) Urine Protein 100 (2+) H (Neg-Trace) mg/dL Urine Glucose (UA) 100 H (Negative) mg/dL Assessment and Plan (1) UTI (urinary tract infection): Status: Acute (2) Prostatic abscess: Status: Resolved (3) Prostatitis: Status: Acute (4) BPH loc w urin obs/LUTS: Status: Resolved (5) Rectal abscess: Status: Acute Plan Cystoscopy Transurethal incision prostate with drainage, possible SP tube rectal abscess- surgery consult Procedures Date of Service Date of Service: 12/09/23
--- NOTE | 2023-11-02 10:11 | PM.CNGS ---
History of Present Illness Consult details Consult date: 11/02/23 Narrative: 73-year-old male with multiple medical problems including coronary disease, status post CABG, obstructive apnea, thyroid disease, who is being managed by [facility] because of prostatitis with prostatic abscess. He had a Hair catheter in place done earlier this month. He was admitted because of persistent pain in the perineum as well as in the rectum. He has CT scan done showing this abscess in the perianal area inferiorly likely representing the prostatic abscess I was therefore consulted because of this. He continues to the pain in the perianal area as well as the perineum. Review of Systems Constitutional: Constitutional: Reports chills Cardiovascular: Cardiovascular: Denies chest pain at rest and Reports dyspnea on exertion Respiratory: Respiratory: Reports dyspnea on exertion Gastrointestinal: Gastrointestinal: Denies abdominal pain Genitourinary: Genitourinary: Reports difficulty urinating PMFSH Past Medical History Medical History Osteoarthritis of knees, bilateral Type 2 diabetes mellitus with unspecified complications Sepsis Hyperthyroidism Multinodular thyroid HLD (hyperlipidemia) HTN (hypertension) Obesity NSTEMI (non-ST elevated myocardial infarction) CAD (coronary artery disease) Diabetes mellitus Myocardial infarct Family History Family History Mother Cardiovascular disease Father Medical history unknown Sister Cancer Brother Cancer Surgical History Surgical History History of esophagogastroduodenoscopy (EGD) Hx of colonoscopy Hx of ultrasound guided needle biopsy Hx of CABG (~07/2016) Social History Social History Household Members: Family Housing: Apartment Are you a primary intensive care unit nurse to a significant other at home: No Do you presently have visiting nurse or other home services: No Alcohol intake: former Patient Tobacco Use Status: Former Tobacco user service: No Current occupational status: unemployed Meds Allergies Allergy/AdvReac Type Severity Reaction Status Date / Time No Known Allergies Allergy Verified 11/02/23 13:38 [No Known Allergies*] Active Medications: Current Medications Acetaminophen (Acetaminophen 325 Mg Tablet) 650 mg PO Q6H PRN PRN Reason: Pain, Mild (Pain Scale 1-3), fever or headache Amlodipine Besylate (Amlodipine Besylate 10 Mg Tablet) 10 mg PO DAILY [facility]; Protocol Last Admin: 11/02/23 07:43 Dose: 10 mg Atorvastatin Calcium (Atorvastatin Calcium 80 Mg Tablet) 80 mg PO DAILY [facility] Last Admin: 11/02/23 07:43 Dose: 80 mg Benzonatate (Benzonatate 100 Mg Capsule) 100 mg PO TID PRN PRN Reason: Cough Calcium Carbonate (Calcium Carbonate 750 Mg Tab.Chew) 750 mg PO Q4H PRN PRN Reason: Heartburn Cilostazol (Cilostazol 100 Mg Tablet) 100 mg PO BID [facility] Last Admin: 11/02/23 07:44 Dose: 100 mg Docusate Sodium (Docusate Sodium 100 Mg Capsule) 100 mg PO BID [facility] Last Admin: 11/02/23 07:43 Dose: 100 mg Doxazosin Mesylate (Doxazosin Mesylate 2 Mg Tablet) 4 mg PO BEDTIME [facility]; Protocol Last Admin: 11/01/23 21:59 Dose: 4 mg Ezetimibe (Ezetimibe 10 Mg Tablet) 10 mg PO DAILY [facility] Last Admin: 11/02/23 07:44 Dose: 10 mg Escitalopram Oxalate (Escitalopram Oxalate 10 Mg Tablet) 10 mg PO DAILY [facility] Last Admin: 11/02/23 07:44 Dose: 10 mg Finasteride (Finasteride 5 Mg Tablet) 5 mg PO DAILY [facility] Last Admin: 11/02/23 07:44 Dose: 5 mg Piperacillin Sod/Tazobactam (Sod 3.375 gm/ Sodium Chloride) 50 mls @ 100 mls/hr IV Q6H [facility] Last Infusion: 11/02/23 06:22 Dose: Infused Isosorbide Mononitrate (Isosorbide Mononitrate 60 Mg Tab.Er.24h) 60 mg PO DAILY [facility]; Protocol Last Admin: 11/02/23 07:43 Dose: 60 mg Magnesium Hydroxide (Milk Of Magnesia 30 Ml Oral.Susp) 30 ml PO DAILY PRN PRN Reason: Constipation Magnesium Hydroxide (Milk Of Magnesia 30 Ml Oral.Susp) 30 ml PO DAILY PRN PRN Reason: Constipation Melatonin (Melatonin 3 Mg Tablet) 6 mg PO BEDTIME PRN PRN Reason: Insomnia Metoprolol Tartrate (Metoprolol Tartrate 50 Mg Tablet) 50 mg PO BID [facility]; Protocol Last Admin: 11/02/23 07:43 Dose: 50 mg Morphine Sulfate (Morphine Sulfate 2 Mg/Ml Cartridge) 4 mg IVPUSH Q4H PRN; Protocol PRN Reason: Pain, Severe (Pain Scale 7-10) Last Admin: 11/01/23 23:20 Dose: 4 mg Nitroglycerin (Nitroglycerin 0.4 Mg Tab.Subl) 0.4 mg SUBLINGUAL Q5M PRN PRN Reason: Chest Pain Omeprazole (Omeprazole 40 Mg Capsule.Dr) 40 mg PO BID [facility] Last Admin: 11/02/23 07:44 Dose: 40 mg Ondansetron HCl (Ondansetron Hcl 4 Mg/2 Ml Vial) 4 mg IVPUSH Q8H PRN PRN Reason: Nausea and Vomiting Last Admin: 11/01/23 18:38 Dose: 4 mg Oxycodone HCl (Oxycodone Hcl Immed Release 5 Mg Tablet) 10 mg PO BID PRN PRN Reason: Pain, Moderate(Pain Scale 4-6) Phenazopyridine HCl (Phenazopyridine Hcl 100 Mg Tablet) 100 mg PO BIDWM [facility] Stop: 11/03/23 17:01 Last Admin: 11/02/23 07:42 Dose: 100 mg Polyethylene Glycol (Polyethylene Glycol 3350 17 Gm Powd.Pack) 17 gm PO DAILY [facility] Last Admin: 11/02/23 07:42 Dose: Not Given Sodium Chloride (0.9 % Sodium Chloride Flush 3 Ml Syringe) 3 ml IVFLUSH QSHIFT [facility] Last Admin: 11/02/23 07:47 Dose: Not Given Trazodone HCl (Trazodone Hcl 100 Mg Tablet) 100 mg PO BEDTIME [facility] Last Admin: 11/01/23 22:00 Dose: 100 mg Home Medications ?Medication ?Instructions ?Recorded ?Confirmed ?Last Taken ?Type escitalopram oxalate 10 mg tablet 10 mg PO DAILY 02/07/20 11/01/23 11/01/23 09:00 History metformin 1,000 mg tablet 1,000 mg PO DAILY 02/07/20 11/01/23 11/01/23 09:00 History insulin glargine 100 unit/mL (3 88 unit subcut DAILY 10/30/21 11/01/23 11/01/23 09:00 History mL) subcutaneous pen (Lantus Solostar U-100 Insulin) trazodone 100 mg tablet 100 mg PO BEDTIME 02/23/23 11/01/23 Unknown History amlodipine 10 mg tablet 10 mg PO DAILY 09/08/23 11/01/23 11/01/23 09:00 History aspirin 81 mg tablet,delayed 81 mg PO DAILY 09/08/23 11/01/23 11/01/23 09:00 History release ezetimibe 10 mg tablet 10 mg PO DAILY 09/08/23 11/01/23 11/01/23 09:00 History insulin lispro 100 unit/mL 16 unit subcut TIDAC 09/08/23 11/01/23 11/01/23 09:00 History subcutaneous pen (Humalog KwikPen (U-100) Insulin) isosorbide mononitrate 60 mg 60 mg PO DAILY 09/08/23 11/01/23 11/01/23 09:00 History tablet,extended release 24 hr rosuvastatin 20 mg tablet 20 mg PO DAILY 09/08/23 11/01/23 11/01/23 09:00 History dulaglutide 4.5 mg/0.5 mL 4.5 mg subcut FR 10/11/23 11/01/23 Unknown History subcutaneous pen injector (Trulicity) melatonin 3 mg tablet 3 mg PO BEDTIME PRN Sleep 10/11/23 11/01/23 Unknown History phenazopyridine 100 mg tablet 100 mg PO BID PRN urinary pain 11/01/23 11/01/23 Unknown History (Pyridium) Physical Exam Vital Signs: Vital Signs: Last Vital Signs Temp 99.5 F 11/02/23 07:25 Pulse 110 H 11/02/23 07:25 Resp 16 11/02/23 07:25 BP 142/65 H 11/02/23 07:25 Pulse Ox 96 11/02/23 07:25 O2 Del Method Room Air 11/02/23 07:25 BMI result Body Mass Index 31.1 Const: Other: Appears obese, complains of pain Resp: Effort & Inspection: normal respiratory effort Cardio: Rate: regular rate GI: Other: Rectal exam shows tenderness in the right anterior aspect of the anal canal with note of a fluctuant area Palpation (GI): Soft to palpation Results Labs 11/01/23 11:39 11/02/23 05:57 Labs: Abnormal lab results 11/01/23 11/02/23 Range/Units 11:39 05:57 RBC 3.96 L (4.60-5.80) X10*6/uL Hgb 11.2 L (14.0-18.0) g/dl Hct 33.6 L (42.0-52.0) % MPV 8.3 L (9.4-12.4) fL BUN 17 H (9-16) mg/dL Random Glucose 134 H 153 H (60-115) mg/dL Albumin 3.3 L (3.5-5.0) g/dL Urine Protein 100 (2+) H (Neg-Trace) mg/dL Urine Glucose (UA) 100 H (Negative) mg/dL Urine Blood Small (1+) H (Negative) Urine Nitrite Positive H (Negative) Ur Leukocyte Esterase Moderate (2+) H (Negative) Short CBC 11/01/23 Range/Units 11:39 WBC 8.0 (4.8-10.8) X10*3/uL Hgb 11.2 L (14.0-18.0) g/dl Hct 33.6 L (42.0-52.0) % Plt Count 338 (160-400) X10*3/uL BMP 11/01/23 11/02/23 11:39 05:57 Sodium 138 139 Potassium 4.7 D 3.8 Chloride 105 102 Carbon Dioxide 24 26 BUN 17 H 12 Creatinine 0.98 0.95 Calcium 9.1 9.4 Liver Function 11/01/23 Range/Units 11:39 Total Bilirubin 0.4 (0.0-1.0) mg/dL AST 17 (5-37) U/L ALT 14 (0-40) U/L Alkaline Phosphatase 93 (39-117) U/L Albumin 3.3 L (3.5-5.0) g/dL Urine 11/01/23 Range/Units 11:39 Urine Color [place] Urine Appearance Hazy Urine pH 6.5 (5.0-9.0) Ur Specific [place] 1.025 (1.005-1.025) Urine Protein 100 (2+) H (Neg-Trace) mg/dL Urine Glucose (UA) 100 H (Negative) mg/dL All other labs normal. Assessment and Plan (1) Rectal abscess: Status: Acute This is likely representing his prostatic abscess. He is being seen by the urologist. The absence seems to palpable from the anal canal. I will defer to the urologist with regards to management for this. One option is to drain this transanally although this comes with a risk of subsequent fistulous disease. I will discuss this with the urologist service. Procedures Date of Service Date of Service: 11/03/23
[2023-11-02] MEDS: Morphine Sulfate 2 MG/ML CARTRIDGE 4 MG IVPUSH ×2 (11:23→20:12)
--- NOTE | 2023-11-02 11:50 | MHC.CM.PN ---
IMM DELIVERED. PT REQUESTS SPOUSE SIGN HE IS TOO FATIGUED. VERBALIZES UNDERSTANDING VIA [employer]. PT LIVES WITH SPOUSE AND USES A CANE FOR MOBILITY. PT USES A C[facility]AP AT [facility]IA [facility]. +HCP PCP DR. SALCEDO AT [facility]. DP: HOME WITH RESUMPTION OF [facility] FOR SN VISITS. RETURN REFERRAL SENT. [facility]SE WILL TRANSPORT HOME. CM WILL CONTINUE TO FOLLOW FOR ANY CHANGE TO DC PLAN/NEEDS.
--- NOTE | 2023-11-02 12:47 | P.PNIM_ITS ---
Subjective Subjective Date of Service: 11/02/23 Interval History: rectal abcess , prostatitis with increased abscess Review of Systems has significant rectal pain ,also suprapubic discomfort. no fever Physical Exam 2 Vital Signs: Vital Signs: Last Vital Signs Temp 99.5 F 11/02/23 07:25 Pulse 110 H 11/02/23 07:25 Resp 16 11/02/23 07:25 BP 142/65 H 11/02/23 07:25 Pulse Ox 96 11/02/23 07:25 O2 Del Method Room Air 11/02/23 07:25 BMI result Body Mass Index 31.1 Appearance: Alert.? Oriented X3. cvs: rrr, [id number]. res: clear to auscultation ,no rhonchii or wheezing abd: no rebound or guarding ,nt, bs present. ext pulses present , no cyanosis . neuro: axo3 , nonfocal. Objective Data Active Medications Acetaminophen (Acetaminophen 325 Mg Tablet) 650 mg PO Q6H PRN PRN Reason: Pain, Mild (Pain Scale 1-3), fever or headache Amlodipine Besylate (Amlodipine Besylate 10 Mg Tablet) 10 mg PO DAILY [facility]; Protocol Last Admin: 11/02/23 07:43 Dose: 10 mg Documented By: KIMANI Atorvastatin Calcium (Atorvastatin Calcium 80 Mg Tablet) 80 mg PO DAILY [facility] Last Admin: 11/02/23 07:43 Dose: 80 mg Documented By: KIMANI Benzonatate (Benzonatate 100 Mg Capsule) 100 mg PO TID PRN PRN Reason: Cough Calcium Carbonate (Calcium Carbonate 750 Mg Tab.Chew) 750 mg PO Q4H PRN PRN Reason: Heartburn Cilostazol (Cilostazol 100 Mg Tablet) 100 mg PO BID [facility] Last Admin: 11/02/23 07:44 Dose: 100 mg Documented By: KIMANI Docusate Sodium (Docusate Sodium 100 Mg Capsule) 100 mg PO BID [facility] Last Admin: 11/02/23 07:43 Dose: 100 mg Documented By: KIMANI Doxazosin Mesylate (Doxazosin Mesylate 2 Mg Tablet) 4 mg PO BEDTIME [facility]; Protocol Last Admin: 11/01/23 21:59 Dose: 4 mg Documented By: YOAV Ezetimibe (Ezetimibe 10 Mg Tablet) 10 mg PO DAILY [facility] Last Admin: 11/02/23 07:44 Dose: 10 mg Documented By: KIMANI Escitalopram Oxalate (Escitalopram Oxalate 10 Mg Tablet) 10 mg PO DAILY [facility] Last Admin: 11/02/23 07:44 Dose: 10 mg Documented By: KIMANI Finasteride (Finasteride 5 Mg Tablet) 5 mg PO DAILY [facility] Last Admin: 11/02/23 07:44 Dose: 5 mg Documented By: KIMANI Piperacillin Sod/Tazobactam (Sod 3.375 gm/ Sodium Chloride) 50 mls @ 100 mls/hr IV Q6H [facility] Last Infusion: 11/02/23 12:12 Dose: Infused Documented By: KIMANI Isosorbide Mononitrate (Isosorbide Mononitrate 60 Mg Tab.Er.24h) 60 mg PO DAILY [facility]; Protocol Last Admin: 11/02/23 07:43 Dose: 60 mg Documented By: KIMANI Magnesium Hydroxide (Milk Of Magnesia 30 Ml Oral.Susp) 30 ml PO DAILY PRN PRN Reason: Constipation Magnesium Hydroxide (Milk Of Magnesia 30 Ml Oral.Susp) 30 ml PO DAILY PRN PRN Reason: Constipation Melatonin (Melatonin 3 Mg Tablet) 6 mg PO BEDTIME PRN PRN Reason: Insomnia Metoprolol Tartrate (Metoprolol Tartrate 50 Mg Tablet) 50 mg PO BID [facility]; Protocol Last Admin: 11/02/23 07:43 Dose: 50 mg Documented By: KIMANI Morphine Sulfate (Morphine Sulfate 2 Mg/Ml Cartridge) 4 mg IVPUSH Q4H PRN; Protocol PRN Reason: Pain, Severe (Pain Scale 7-10) Last Admin: 11/02/23 11:23 Dose: 4 mg Documented By: TERESE Nitroglycerin (Nitroglycerin 0.4 Mg Tab.Subl) 0.4 mg SUBLINGUAL Q5M PRN PRN Reason: Chest Pain Omeprazole (Omeprazole 40 Mg Capsule.Dr) 40 mg PO BID [facility] Last Admin: 11/02/23 07:44 Dose: 40 mg Documented By: KIMANI Ondansetron HCl (Ondansetron Hcl 4 Mg/2 Ml Vial) 4 mg IVPUSH Q8H PRN PRN Reason: Nausea and Vomiting Last Admin: 11/01/23 18:38 Dose: 4 mg Documented By: HO.THOMSOC Oxycodone HCl (Oxycodone Hcl Immed Release 5 Mg Tablet) 10 mg PO BID PRN PRN Reason: Pain, Moderate(Pain Scale 4-6) Phenazopyridine HCl (Phenazopyridine Hcl 100 Mg Tablet) 100 mg PO BIDWM [facility] Stop: 11/03/23 17:01 Last Admin: 11/02/23 07:42 Dose: 100 mg Documented By: KIMANI Polyethylene Glycol (Polyethylene Glycol 3350 17 Gm Powd.Pack) 17 gm PO DAILY [facility] Last Admin: 11/02/23 07:42 Dose: Not Given Documented By: KIMANI Non-Admin Reason: NPO Sodium Chloride (0.9 % Sodium Chloride Flush 3 Ml Syringe) 3 ml IVFLUSH QSHIFT [facility] Last Admin: 11/02/23 07:47 Dose: Not Given Documented By: KIMANI Non-Admin Reason: Previously Administered Trazodone HCl (Trazodone Hcl 100 Mg Tablet) 100 mg PO BEDTIME [facility] Last Admin: 11/01/23 22:00 Dose: 100 mg Documented By: YOAV Labs 11/01/23 11:39 11/02/23 05:57 Labs: Laboratory Results - last 24 hr 11/01/23 11/02/23 12:59 05:57 Hold Purple Top SEE NOTE Anion Gap 15 Estim Creat Clear Calc 69.5 Estimated GFR > 60 Random Glucose 153 H Lactic Acid 0.7 Calcium 9.4 Microbiology Microbiology Results: Microbiology 11/01/23 13:07 Urine Culture - Preliminary Urine Catheterized - Stein Catheter Yeast Assessment and Plan (1) Rectal abscess: Status: Acute (2) Prostatic abscess: Status: Acute Assessment and Plan: 73-year-old male with a PMH significant for?CAD s/p CABG in 2017, bladder outlet obstruction with chronic indwelling Stein, HTN, HTN, insulin-dependent type 2 diabetes, BPH, DEANDRE on CPAP, and mood disorder who presents to the ED with?worsening bladder, prostate, and rectal pain. Acute prostatitis complicated by abscess CT of abd/and pelvis showing prostatitis with increased abscess from prior, new perirectal abscess, and new left seminal vesicle enlargement Patient completed 21 day course of levofloxacin p.o. yesterday No sepsis: No fever, tachycardia, tachypnea, or leukocytosis; lactic acid WNL plan: NPO has stein continue treat with Zosyn, started 11/01/2023,morphine . General surgery consult for rectal abcess Urology consult-prosatitis/abcess -plan for cystoscopy today /abcess draining Infectious disease consult Insulin-dependent type 2 diabetes Sliding-scale insulin, Lantus Hold metformin HTN Continue amlodipine, irbesartan, metoprolol CAD/HLD Continue ezetimibe, isosorbide mononitrate, statin Mood disorder Continue home mood stabilizers DEANDRE CPAP at night Obesity: Encouraged to lose weight and cutdown calories. Full Code DVT Prophylaxis: Pneumatic compression due to possible surgical procedure in the morning Pt will require a hospitalization of at least two nights for treatment and further examination of acute prostatitis with worsening abscess and new perirectal abscess. Given that he has failed outpatient therapy with p.o. antibiotics, he will require in patient level care for administration of IV antibiotics, specialist consultation, and likely surgical procedure for abscess drainage. Quality Stroke Does the patient have a stroke diagnosis?: No VTE Prior VTE?: No VTE Risk Level:: Medical - moderate - high VTE Device Contraindication: N/A - Device Ordered VTE Drug Contraindication: Treatment Not Indicated
[2023-11-02] MEDS: Lactated Ringers 1,000 ML 50 ML IVCONT (13:36)
[2023-11-02 13:47] LABS: Glucose, Whole Blood 160 mg/dL (60-115)
--- NOTE | 2023-11-02 14:00 | MHC.SHP ---
Pre-Procedural Eval Section A - 24 Hr Update-Section A only Date of Service: 11/02/23 The patient is an INPATIENT: No Changes since office visit: No Cold of Flu in the past 2 weeks, No New Medical Problems, No Changes in Medication and No Patient answered all questions The patient has been examined within 24 hours of the surgical procedure. The History & Physical has been completed within 30 days and I have reviewed it.: Yes Section B - Complete if H&P > 30 days Chief Complaint: Postatitis with worsening abscess Details of Present Illness: Cystoscopy, suprapubic tube placement, prostatic unroofing Allergies: Allergies Allergy/AdvReac Type Severity Reaction Status Date / Time No Known Allergies Allergy Verified 11/02/23 13:38 [No Known Allergies*] Review of Systems Sugical H&P ROS: Negative: Constitution, Cardiovascular, Respiratory, Neurological, Psychiatric, Hem-Onc, Allergic/Immunologic, Gastrointestinal, Genitourinary, Musculoskeletal, Integumentary, Endocrine and Eyes/Ears/Nose/Throat Exam Surgical H&P Exam: Normal: HEENT, Normal: Heart, Normal: Lungs, Normal: Extremities, Normal: Abdomen, Normal: Skin and Normal: Neurological Plan Diagnosis/Plan: Unchanged I have reviewed the history and physical and performed a pertinent physical examination on my patient. No changes have occurred unless specified. Time Spent With Patient Time: Total time managing care of this patient today ____ minutes.
--- NOTE | 2023-11-02 14:01 | P.CONAN_ITS ---
HPI - Anesthesia Eval Consult details Narrative: For drainage prostate abscess PMFSH Active Problems Active Problems: All Active Problems Rectal abscess (Acute) BPH loc w urin obs/LUTS (Acute) Complication of Hair catheter (Acute) UTI (urinary tract infection) (Acute) Severe persistent asthma (Acute) Bladder outlet obstruction (Acute) Prostatic abscess (Acute) Cystitis (Acute) Acute prostatitis (Acute) Prostatitis (Acute) GERD (gastroesophageal reflux disease) (Acute) Hydronephrosis (Acute) Abdominal pain (Acute) Early satiety (Acute) COVID-19 (Acute) DEANDRE on CPAP (Acute) Hyperthyroidism (Acute) Multinodular thyroid (Acute) Environmental allergies (Acute) Asthma (Acute) Morbid obesity (Acute) Essential hypertension (Acute) Atherosclerotic cardiovascular disease (Acute) Hx of CABG (Acute ~07/2016) HLD (hyperlipidemia) (Acute) HTN (hypertension) (Acute) Obesity (Acute) CAD (coronary artery disease) (Acute) Diabetes mellitus (Acute) Past Medical History Medical History Osteoarthritis of knees, bilateral Type 2 diabetes mellitus with unspecified complications Sepsis Hyperthyroidism Multinodular thyroid HLD (hyperlipidemia) HTN (hypertension) Obesity NSTEMI (non-ST elevated myocardial infarction) CAD (coronary artery disease) Diabetes mellitus Myocardial infarct Family History Family History Mother Cardiovascular disease Father Medical history unknown Sister Cancer Brother Cancer Family history of problems with anesthesia: No Surgical History Surgical History History of esophagogastroduodenoscopy (EGD) Hx of colonoscopy Hx of ultrasound guided needle biopsy Hx of CABG (~07/2016) History of Problems with Anesthesia: No Social History Social History Household Members: Family Housing: Apartment Are you a primary child care center assistant director to a significant other at home: No Do you presently have visiting nurse or other home services: No Alcohol intake: former Patient Tobacco Use Status: Former Tobacco user service: No Current occupational status: unemployed Meds Allergies Allergy/AdvReac Type Severity Reaction Status Date / Time No Known Allergies Allergy Verified 11/02/23 13:38 [No Known Allergies*] Active Medications: Current Medications Acetaminophen (Acetaminophen 325 Mg Tablet) 650 mg PO Q6H PRN PRN Reason: Pain, Mild (Pain Scale 1-3), fever or headache Amlodipine Besylate (Amlodipine Besylate 10 Mg Tablet) 10 mg PO DAILY [facility]; Protocol Last Admin: 11/02/23 07:43 Dose: 10 mg Atorvastatin Calcium (Atorvastatin Calcium 80 Mg Tablet) 80 mg PO DAILY [facility] Last Admin: 11/02/23 07:43 Dose: 80 mg Benzonatate (Benzonatate 100 Mg Capsule) 100 mg PO TID PRN PRN Reason: Cough Calcium Carbonate (Calcium Carbonate 750 Mg Tab.Chew) 750 mg PO Q4H PRN PRN Reason: Heartburn Cilostazol (Cilostazol 100 Mg Tablet) 100 mg PO BID [facility] Last Admin: 11/02/23 07:44 Dose: 100 mg Docusate Sodium (Docusate Sodium 100 Mg Capsule) 100 mg PO BID [facility] Last Admin: 11/02/23 07:43 Dose: 100 mg Doxazosin Mesylate (Doxazosin Mesylate 2 Mg Tablet) 4 mg PO BEDTIME [facility]; Protocol Last Admin: 11/01/23 21:59 Dose: 4 mg Ezetimibe (Ezetimibe 10 Mg Tablet) 10 mg PO DAILY [facility] Last Admin: 11/02/23 07:44 Dose: 10 mg Escitalopram Oxalate (Escitalopram Oxalate 10 Mg Tablet) 10 mg PO DAILY [facility] Last Admin: 11/02/23 07:44 Dose: 10 mg Finasteride (Finasteride 5 Mg Tablet) 5 mg PO DAILY [facility] Last Admin: 11/02/23 07:44 Dose: 5 mg Piperacillin Sod/Tazobactam (Sod 3.375 gm/ Sodium Chloride) 50 mls @ 100 mls/hr IV Q6H [facility] Last Infusion: 11/02/23 12:12 Dose: Infused Lactated Ringer's (Lr) 1,000 mls @ 50 mls/hr IVCONT .Q20H [facility] Last Admin: 11/02/23 13:36 Dose: 50 mls/hr Isosorbide Mononitrate (Isosorbide Mononitrate 60 Mg Tab.Er.24h) 60 mg PO DAILY [facility]; Protocol Last Admin: 11/02/23 07:43 Dose: 60 mg Magnesium Hydroxide (Milk Of Magnesia 30 Ml Oral.Susp) 30 ml PO DAILY PRN PRN Reason: Constipation Magnesium Hydroxide (Milk Of Magnesia 30 Ml Oral.Susp) 30 ml PO DAILY PRN PRN Reason: Constipation Melatonin (Melatonin 3 Mg Tablet) 6 mg PO BEDTIME PRN PRN Reason: Insomnia Metoprolol Tartrate (Metoprolol Tartrate 50 Mg Tablet) 50 mg PO BID [facility]; Protocol Last Admin: 11/02/23 07:43 Dose: 50 mg Morphine Sulfate (Morphine Sulfate 2 Mg/Ml Cartridge) 4 mg IVPUSH Q4H PRN; Protocol PRN Reason: Pain, Severe (Pain Scale 7-10) Last Admin: 11/02/23 11:23 Dose: 4 mg Nitroglycerin (Nitroglycerin 0.4 Mg Tab.Subl) 0.4 mg SUBLINGUAL Q5M PRN PRN Reason: Chest Pain Omeprazole (Omeprazole 40 Mg Capsule.Dr) 40 mg PO BID [facility] Last Admin: 11/02/23 07:44 Dose: 40 mg Ondansetron HCl (Ondansetron Hcl 4 Mg/2 Ml Vial) 4 mg IVPUSH Q8H PRN PRN Reason: Nausea and Vomiting Last Admin: 11/01/23 18:38 Dose: 4 mg Oxycodone HCl (Oxycodone Hcl Immed Release 5 Mg Tablet) 10 mg PO BID PRN PRN Reason: Pain, Moderate(Pain Scale 4-6) Phenazopyridine HCl (Phenazopyridine Hcl 100 Mg Tablet) 100 mg PO BIDWM [facility] Stop: 11/03/23 17:01 Last Admin: 11/02/23 07:42 Dose: 100 mg Polyethylene Glycol (Polyethylene Glycol 3350 17 Gm Powd.Pack) 17 gm PO DAILY [facility] Last Admin: 11/02/23 07:42 Dose: Not Given Sodium Chloride (0.9 % Sodium Chloride Flush 3 Ml Syringe) 3 ml IVFLUSH QSHIFT [facility] Last Admin: 11/02/23 07:47 Dose: Not Given Trazodone HCl (Trazodone Hcl 100 Mg Tablet) 100 mg PO BEDTIME [facility] Last Admin: 11/01/23 22:00 Dose: 100 mg Home Medications ?Medication ?Instructions ?Recorded ?Confirmed ?Last Taken ?Type escitalopram oxalate 10 mg tablet 10 mg PO DAILY 02/07/20 11/01/23 11/01/23 09:00 History metformin 1,000 mg tablet 1,000 mg PO DAILY 02/07/20 11/01/23 11/01/23 09:00 History insulin glargine 100 unit/mL (3 88 unit subcut DAILY 10/30/21 11/01/23 11/01/23 09:00 History mL) subcutaneous pen (Lantus Solostar U-100 Insulin) trazodone 100 mg tablet 100 mg PO BEDTIME 02/23/23 11/01/23 Unknown History amlodipine 10 mg tablet 10 mg PO DAILY 09/08/23 11/01/23 11/01/23 09:00 History aspirin 81 mg tablet,delayed 81 mg PO DAILY 09/08/23 11/01/23 11/01/23 09:00 History release ezetimibe 10 mg tablet 10 mg PO DAILY 09/08/23 11/01/23 11/01/23 09:00 History insulin lispro 100 unit/mL 16 unit subcut TIDAC 09/08/23 11/01/23 11/01/23 09:00 History subcutaneous pen (Humalog KwikPen (U-100) Insulin) isosorbide mononitrate 60 mg 60 mg PO DAILY 09/08/23 11/01/23 11/01/23 09:00 History tablet,extended release 24 hr rosuvastatin 20 mg tablet 20 mg PO DAILY 09/08/23 11/01/23 11/01/23 09:00 History dulaglutide 4.5 mg/0.5 mL 4.5 mg subcut FR 10/11/23 11/01/23 Unknown History subcutaneous pen injector (Trulicity) melatonin 3 mg tablet 3 mg PO BEDTIME PRN Sleep 10/11/23 11/01/23 Unknown History phenazopyridine 100 mg tablet 100 mg PO BID PRN urinary pain 11/01/23 11/01/23 Unknown History (Pyridium) Exam Height,Weight and Vital Signs: Height 5 ft 6 in Weight 87.4 kg Last Vital Signs Temp 98.7 F 11/02/23 13:25 Pulse 77 11/02/23 13:25 Resp 14 11/02/23 13:25 BP 142/65 H 11/02/23 13:25 Pulse Ox 93 11/02/23 13:25 O2 Del Method Room Air 11/02/23 13:25 Pertinent Lab Results Pertinent Lab Results: Laboratory Tests 11/01/23 11/01/23 11/02/23 11:39 12:59 05:57 WBC 8.0 RBC 3.96 L Hgb 11.2 L Hct 33.6 L MCV 84.8 MCH 28.3 MCHC 33.3 RDW 15.3 Plt Count 338 MPV 8.3 L Immature Gran % (Auto) 0.2 Neut % (Auto) 57.7 Lymph % (Auto) 31.0 [place] % (Auto) 8.6 Eos % (Auto) 2.4 Baso % (Auto) 0.1 Lymph # (Auto) 2.5 [place] # (Auto) 0.7 Eos # (Auto) 0.2 Baso # (Auto) 0.0 Abs Immat Gran (auto) 0.02 Absolute Neuts (auto) 4.6 Absolute Nucleated RBC 0.000 Nucleated RBC % (auto) 0.0 Hold Purple Top SEE NOTE Sodium 138 139 Potassium 4.7 D 3.8 Chloride 105 102 Carbon Dioxide 24 26 Anion Gap 14 15 BUN 17 H 12 Creatinine 0.98 0.95 Estim Creat Clear Calc 69.3 69.5 Estimated GFR > 60 > 60 POC Glucose Random Glucose 134 H 153 H Lactic Acid 0.7 Calcium 9.1 9.4 Total Bilirubin 0.4 AST 17 ALT 14 Alkaline Phosphatase 93 Total Protein 7.6 Albumin 3.3 L Urine Color [place] Urine Appearance Hazy Urine pH 6.5 Ur Specific [place] 1.025 Urine Protein 100 (2+) H Urine Glucose (UA) 100 H Urine Ketones Negative Urine Blood Small (1+) H Urine Nitrite Positive H Ur Leukocyte Esterase Moderate (2+) H Urine RBC 0-2 Urine WBC 21-50 Ur Squamous Epith Cells 0-2 Urine Bacteria None Seen Hyaline Casts 0-2 Urine Yeast Present 11/02/23 13:42 WBC RBC Hgb Hct MCV MCH MCHC RDW Plt Count MPV Immature Gran % (Auto) Neut % (Auto) Lymph % (Auto) [place] % (Auto) Eos % (Auto) Baso % (Auto) Lymph # (Auto) [place] # (Auto) Eos # (Auto) Baso # (Auto) Abs Immat Gran (auto) Absolute Neuts (auto) Absolute Nucleated RBC Nucleated RBC % (auto) Hold Purple Top Sodium Potassium Chloride Carbon Dioxide Anion Gap BUN Creatinine Estim Creat Clear Calc Estimated GFR POC Glucose 160 H Random Glucose Lactic Acid Calcium Total Bilirubin AST ALT Alkaline Phosphatase Total Protein Albumin Urine Color Urine Appearance Urine pH Ur Specific [place] Urine Protein Urine Glucose (UA) Urine Ketones Urine Blood Urine Nitrite Ur Leukocyte Esterase Urine RBC Urine WBC Ur Squamous Epith Cells Urine Bacteria Hyaline Casts Urine Yeast Airway Mallampati Class: IV TM Dist: <=3cm Neck ROM: Full Denture: Upper Loose/Missing/Broken Teeth: Yes and Upper Heart: see above. denies chest pain. Lungs: chest cta. SpO2 93-95% room air. Assessment and Plan Assessment Anesthesia Assessment: Anesthesia Plan Discussed and Chart Reviewed Final Anesthetic Review Family History of Problems with Anesthesia: No History of Problems with Anesthesia: No NPO: Yes ASA Class: III Final Preanesthetic Review: No Changes in Pt Med Stat, Meds/Allgs Chart Reviewed, Consent Obtained/Reviewed and Anes Risks/Benef Reviewed Patient Risk: High Procedure Risk: Intermediate Anesthetic Plan Anesthetic Plan: GA and Agree w/ Assess. and Plan Disposition: Standard PACU
--- NOTE | 2023-11-02 14:37 | W.PM.IDCN ---
History of Present Illness Data of Consult Service Date: 11/02/23 Requesting physician: Scotty Hill Primary Care Provider: Darius Gonzales MD HPI Reason for consult: prostate abscess He presents with discomfort urination He also has had UTI I had seen him for earlier He comes in with chills and difficulty urination. He reports [id number] d po Levaquin. Review of Systems Review of Systems: Yes all other systems are reviewed and are negative PMFSH Past Medical History Medical History Osteoarthritis of knees, bilateral Type 2 diabetes mellitus with unspecified complications Sepsis Hyperthyroidism Multinodular thyroid HLD (hyperlipidemia) HTN (hypertension) Obesity NSTEMI (non-ST elevated myocardial infarction) CAD (coronary artery disease) Diabetes mellitus Myocardial infarct Family History Family History Mother Cardiovascular disease Father Medical history unknown Sister Cancer Brother Cancer Family history: reviewed and not pertinent Surgical History Surgical History History of esophagogastroduodenoscopy (EGD) Hx of colonoscopy Hx of ultrasound guided needle biopsy Hx of CABG (~07/2016) Social History Social History Household Members: Family Housing: Apartment Are you a primary progressive care unit registered nurse to a significant other at home: No Do you presently have visiting nurse or other home services: No Alcohol intake: former Patient Tobacco Use Status: Former Tobacco user service: No Current occupational status: unemployed Meds Allergies Allergy/AdvReac Type Severity Reaction Status Date / Time No Known Allergies Allergy Verified 11/02/23 13:38 [No Known Allergies*] Active Medications: Current Medications Acetaminophen (Acetaminophen 325 Mg Tablet) 650 mg PO Q6H PRN PRN Reason: Pain, Mild (Pain Scale 1-3), fever or headache Amlodipine Besylate (Amlodipine Besylate 10 Mg Tablet) 10 mg PO DAILY [facility]; Protocol Last Admin: 11/02/23 07:43 Dose: 10 mg Atorvastatin Calcium (Atorvastatin Calcium 80 Mg Tablet) 80 mg PO DAILY [facility] Last Admin: 11/02/23 07:43 Dose: 80 mg Benzonatate (Benzonatate 100 Mg Capsule) 100 mg PO TID PRN PRN Reason: Cough Calcium Carbonate (Calcium Carbonate 750 Mg Tab.Chew) 750 mg PO Q4H PRN PRN Reason: Heartburn Cilostazol (Cilostazol 100 Mg Tablet) 100 mg PO BID [facility] Last Admin: 11/02/23 07:44 Dose: 100 mg Docusate Sodium (Docusate Sodium 100 Mg Capsule) 100 mg PO BID [facility] Last Admin: 11/02/23 07:43 Dose: 100 mg Doxazosin Mesylate (Doxazosin Mesylate 2 Mg Tablet) 4 mg PO BEDTIME [facility]; Protocol Last Admin: 11/01/23 21:59 Dose: 4 mg Ezetimibe (Ezetimibe 10 Mg Tablet) 10 mg PO DAILY [facility] Last Admin: 11/02/23 07:44 Dose: 10 mg Escitalopram Oxalate (Escitalopram Oxalate 10 Mg Tablet) 10 mg PO DAILY [facility] Last Admin: 11/02/23 07:44 Dose: 10 mg Fentanyl (Fentanyl Citrate/Pf 100 Mcg/2 Ml Vial) 50 mcg IVPUSH Q5M PRN PRN Reason: Pain, Moderate to Severe (Pain Scale 4-10) Stop: 11/02/23 20:33 Finasteride (Finasteride 5 Mg Tablet) 5 mg PO DAILY [facility] Last Admin: 11/02/23 07:44 Dose: 5 mg Hydromorphone HCl (Hydromorphone Hcl 0.5 Mg/0.5 Ml Syringe) 0.5 mg IVPUSH Q5M PRN PRN Reason: Pain, Moderate to Severe (Pain Scale 4-10) Stop: 11/02/23 20:33 Piperacillin Sod/Tazobactam (Sod 3.375 gm/ Sodium Chloride) 50 mls @ 100 mls/hr IV Q6H [facility] Last Infusion: 11/02/23 12:12 Dose: Infused Lactated Ringer's (Lr) 1,000 mls @ 50 mls/hr IVCONT .Q20H [facility] Last Admin: 11/02/23 13:36 Dose: 50 mls/hr Isosorbide Mononitrate (Isosorbide Mononitrate 60 Mg Tab.Er.24h) 60 mg PO DAILY [facility]; Protocol Last Admin: 11/02/23 07:43 Dose: 60 mg Magnesium Hydroxide (Milk Of Magnesia 30 Ml Oral.Susp) 30 ml PO DAILY PRN PRN Reason: Constipation Magnesium Hydroxide (Milk Of Magnesia 30 Ml Oral.Susp) 30 ml PO DAILY PRN PRN Reason: Constipation Melatonin (Melatonin 3 Mg Tablet) 6 mg PO BEDTIME PRN PRN Reason: Insomnia Metoprolol Tartrate (Metoprolol Tartrate 50 Mg Tablet) 50 mg PO BID [facility]; Protocol Last Admin: 11/02/23 07:43 Dose: 50 mg Morphine Sulfate (Morphine Sulfate 2 Mg/Ml Cartridge) 4 mg IVPUSH Q4H PRN; Protocol PRN Reason: Pain, Severe (Pain Scale 7-10) Last Admin: 11/02/23 11:23 Dose: 4 mg Naloxone HCl (Naloxone Hcl 0.4 Mg/Ml Vial) 0.04 mg IVPUSH Q5M PRN PRN Reason: Excessive sedation or RR < 8 Nitroglycerin (Nitroglycerin 0.4 Mg Tab.Subl) 0.4 mg SUBLINGUAL Q5M PRN PRN Reason: Chest Pain Omeprazole (Omeprazole 40 Mg Capsule.Dr) 40 mg PO BID [facility] Last Admin: 11/02/23 07:44 Dose: 40 mg Ondansetron HCl (Ondansetron Hcl 4 Mg/2 Ml Vial) 4 mg IVPUSH Q8H PRN PRN Reason: Nausea and Vomiting Last Admin: 11/01/23 18:38 Dose: 4 mg Ondansetron HCl (Ondansetron Hcl 4 Mg/2 Ml Vial) 4 mg IVPUSH ONCE PRN PRN Reason: Nausea and Vomiting Stop: 11/02/23 20:35 Oxycodone HCl (Oxycodone Hcl Immed Release 5 Mg Tablet) 10 mg PO BID PRN PRN Reason: Pain, Moderate(Pain Scale 4-6) Phenazopyridine HCl (Phenazopyridine Hcl 100 Mg Tablet) 100 mg PO BIDWM [facility] Stop: 11/03/23 17:01 Last Admin: 11/02/23 07:42 Dose: 100 mg Polyethylene Glycol (Polyethylene Glycol 3350 17 Gm Powd.Pack) 17 gm PO DAILY [facility] Last Admin: 11/02/23 07:42 Dose: Not Given Sodium Chloride (0.9 % Sodium Chloride Flush 3 Ml Syringe) [address] [facility] Last Admin: 11/02/23 07:47 Dose: Not Given Trazodone HCl (Trazodone Hcl 100 Mg Tablet) 100 mg PO BEDTIME [facility] Last Admin: 11/01/23 22:00 Dose: 100 mg Home Medications ?Medication ?Instructions ?Recorded ?Confirmed ?Last Taken ?Type escitalopram oxalate 10 mg tablet 10 mg PO DAILY 02/07/20 11/01/23 11/01/23 09:00 History metformin 1,000 mg tablet 1,000 mg PO DAILY 02/07/20 11/01/23 11/01/23 09:00 History insulin glargine 100 unit/mL (3 88 unit subcut DAILY 10/30/21 11/01/23 11/01/23 09:00 History mL) subcutaneous pen (Lantus Solostar U-100 Insulin) trazodone 100 mg tablet 100 mg PO BEDTIME 02/23/23 11/01/23 Unknown History amlodipine 10 mg tablet 10 mg PO DAILY 09/08/23 11/01/23 11/01/23 09:00 History aspirin 81 mg tablet,delayed 81 mg PO DAILY 09/08/23 11/01/23 11/01/23 09:00 History release ezetimibe 10 mg tablet 10 mg PO DAILY 09/08/23 11/01/23 11/01/23 09:00 History insulin lispro 100 unit/mL 16 unit subcut TIDAC 09/08/23 11/01/23 11/01/23 09:00 History subcutaneous pen (Humalog KwikPen (U-100) Insulin) isosorbide mononitrate 60 mg 60 mg PO DAILY 09/08/23 11/01/23 11/01/23 09:00 History tablet,extended release 24 hr rosuvastatin 20 mg tablet 20 mg PO DAILY 09/08/23 11/01/23 11/01/23 09:00 History dulaglutide 4.5 mg/0.5 mL 4.5 mg subcut FR 10/11/23 11/01/23 Unknown History subcutaneous pen injector (Trulicity) melatonin 3 mg tablet 3 mg PO BEDTIME PRN Sleep 10/11/23 11/01/23 Unknown History phenazopyridine 100 mg tablet 100 mg PO BID PRN urinary pain 11/01/23 11/01/23 Unknown History (Pyridium) Physical Exam Vital Signs: Vital Signs: Last Vital Signs Temp 98.7 F 09/23/24 13:25 Pulse 77 11/02/23 13:25 Resp 14 11/02/23 13:25 BP 142/65 H 11/02/23 13:25 Pulse Ox 93 11/02/23 13:25 O2 Del Method Room Air 11/02/23 13:25 BMI result Body Mass Index 31.1 Const: General: cooperative HEENT: Head: Yes normal to inspection Face and sinus: Yes normal facial exam Mouth: Normal oral and palatal mucosa present Teeth and gingiva: dentition normal Eyes: General: appearance normal, both eyes and all related structures Pupils: Equal, round and reactive pupils present Resp: Effort & Inspection: normal respiratory effort Cardio: Rate: regular rate Rhythm: regular rhythm GI: Palpation (GI): Soft to palpation and nontender : General: Yes no CVA tenderness Back/Spine/Pelvis: Back: no CVA tenderness Skin: General skin exam: no rashes or lesions noted Neuro: General: moves all extremities Cranial nerves: Yes Equal, round and reactive pupils present Extrem: General: Yes normal to inspection Psych: Appearance: grossly normal Results Labs 11/01/23 11:39 11/02/23 05:57 Labs: BMP 11/02/23 05:57 Sodium 139 Potassium 3.8 Chloride 102 Carbon Dioxide 26 BUN 12 Creatinine 0.95 Calcium 9.4 Microbiology Microbiology Results: Microbiology 11/01/23 13:07 Urine Catheterized - Hair Catheter Urine Culture - Preliminary Yeast Assessment and Plan (1) Rectal abscess: Status: Acute (2) Bladder outlet obstruction: Status: Acute (3) Prostatitis: Status: Acute Plan There are no specific prostate cultures ,just urine cultur E coli He has prostate and concern rectal abscess Would give po Augmentin for 21 d Follow Urology and Surgery rectal concerns abscess.
--- NOTE | 2023-11-02 15:10 | W.PM.OPN ---
Operative Note Operative Note Date of Service: 11/02/23 Narrative: PreOperative Diagnosis: Prostatic abscess Post Operative Diagnosis: Prostatic abscess Procedure: Cystoscopy, suprapubic tube placement, prostatic abscess unroofing Surgeon: Dr Cristobal Carney Anesthesia: General Indications for procedure: Consolidated prostatic abscess. Background at insulin-dependent diabetic. Had previously presented to hospital at which point had prostate abscess but did not have consolidated drainable targets. Procedure: After informed consent was verified the patient was brought to the operating room and placed in a supine position. Anesthesia was administered per protocol. The patient was prepped and draped in a sterile fashion. Safety pause time-out was performed. Antibiotics being given. Cystoscopy performed. No abnormality noted of anterior posterior urethra. Prostate with inflamed mucosa. Bladder entered. Both ureteric orifice seen. Bladder filled. Local anesthetic subcutaneous placement proximally 2 fingerbreadths in midline above symphysis pubis. Anesthetic also applied deeply at targeted site. Find a needle placed with good reflux of urine. 1 cm horizontal incision made with 15 blade. Trocar introducer used to enter the bladder. [place] Hair catheter placed with 10 cc placed in balloon. Resectoscope placed with visual obturator. Using Good knife incisions were made at the 5 and 7 o'clock position and taken down deeply. Incision on the left side entered the prostatic abscess. The abscess was opened and drainage was obtained. Attempt was made to drain on the right side however the location of the abscess was deeper. Rectal examination performed on table in soft area on right side was palpated and noted to decrease in size with presumed to communicated drainage onto left sided pocket. Hair catheter placed 20 [place] with 10 cc balloon. Patient tolerated procedure well was extubated in operating room and transferred in stable condition to the recovery area. Pathology: Drains: SPT and Hair
[2023-11-02 16:58] LABS: Glucose, Whole Blood 196 mg/dL (60-115)
[2023-11-02] MEDS: 0.9 % Sodium Chloride Flush 3 ML SYRINGE IVFLUSH ×2 (17:08→20:11)
[2023-11-02 19:43] LABS: Glucose, Whole Blood 291 mg/dL (60-115)
[2023-11-02] MEDS: Doxazosin Mesylate 2 MG TABLET 4 MG PO (20:17)
[2023-11-02] MEDS: traZODone HCL 100 MG TABLET PO (20:18)
[2023-11-02] MEDS: Insulin Lispro 100 UNIT/ML 3 ML VIAL SUBCUT (20:20)
[2023-11-02] MEDS: oxyCODONE HCl Immed Release 5 MG TABLET 10 MG PO (23:30)
[2023-11-03] VITALS (7 sets, daily range): BP systolic 101–158; BP diastolic 53–83; PULSE 77–99; RESP 16–18; TEMP 35.2–37.2; O2SAT 91–95
[2023-11-03] MEDS: Piperacillin Sodium/Tazobactam 3.375 GM in 0.9 % Sodium Chloride 50 ML IV ×4 (05:43→23:11)
[2023-11-03 07:27] LABS: Glucose, Whole Blood 225 mg/dL (60-115)
[2023-11-03 07:36] LABS: Glucose, Whole Blood 236 mg/dL (60-115)
[2023-11-03] MEDS: Finasteride 5 MG TABLET PO (08:07)
[2023-11-03] MEDS: polyethylene glycoL 3350 17 GM POWD.PACK PO (08:07)
[2023-11-03] MEDS: Ezetimibe 10 MG TABLET PO (08:08)
[2023-11-03] MEDS: Docusate Sodium 100 MG CAPSULE PO ×2 (08:08→20:49)
[2023-11-03] MEDS: Phenazopyridine HCL 100 MG TABLET PO ×2 (08:08→16:52)
[2023-11-03] MEDS: cilostazoL 100 MG TABLET PO ×2 (08:08→20:49)
[2023-11-03] MEDS: Escitalopram Oxalate 10 MG TABLET PO (08:08)
[2023-11-03] MEDS: amLODIPine Besylate 10 MG TABLET PO (08:08)
[2023-11-03] MEDS: Metoprolol Tartrate 50 MG TABLET PO ×2 (08:08→20:49)
[2023-11-03] MEDS: Atorvastatin Calcium 80 MG TABLET PO (08:08)
[2023-11-03] MEDS: Isosorbide Mononitrate 60 MG TAB.ER.24H PO (08:08)
[2023-11-03] MEDS: Omeprazole 40 MG CAPSULE.DR PO ×2 (08:08→20:49)
[2023-11-03] MEDS: Insulin Lispro 100 UNIT/ML 3 ML VIAL SUBCUT ×4 (08:09→20:51)
[2023-11-03] MEDS: Insulin Glargine,Hum.rec.anlog 100 UNIT/ML 10 ML VIAL 45 UNIT SUBCUT (08:09)
--- NOTE | 2023-11-03 08:23 | HO.POSTANES ---
Post Anesthesia Evaluation Post Anesthesia Evaluation Date of Service: 11/02/23 Vital Signs: Vital Signs Temp Pulse Resp BP Pulse Ox O2 Del Method 11/03/23 07:48 97.9 F 84 16 122/59 L 92 Room Air 11/03/23 07:25 97.8 F 99 18 158/58 H 94 Room Air 11/03/23 03:47 98.0 F 98 18 123/83 93 Room Air 11/02/23 23:35 97.4 F 82 18 136/61 94 Room Air Anesthesia: General Mental Status: Awake Pain Control: Satisfactory Nausea/Vomiting: None Hydration: Adequate Anesthesia-Related Issues: No Anes. Related Issues
[2023-11-03 09:26] LABS: Hematocrit 32.2 % (42.0-52.0); Hemoglobin 10.8 g/dl (14.0-18.0); Mean Corpuscular HGB Conc 33.5 g/dl (31.0-36.0); Mean Corpuscular Hemoglobin 28.1 pg (27.0-33.0); Mean Corpuscular Volume 83.6 fL (80.0-98.0); Mean Platelet Volume 8.3 fL (9.4-12.4); Platelet Count 283 X10*3/uL (160-400); Red Blood Count 3.85 X10*6/uL (4.60-5.80); Red Cell Distribution Width 15.2 % (11.0-16.0); White Blood Count 8.8 X10*3/uL (4.8-10.8)
[2023-11-03 09:44] LABS: Anion Gap 12 (12-20); Blood Urea Nitrogen 17 mg/dL (9-16); Calcium 8.8 mg/dL (8.4-10.2); Carbon Dioxide 25 mmol/L (22-29); Chloride 101 mmol/L (96-108); Creatinine Clr Calc Pharmacy 68.8; Estimated Glomerular Filt Rate > 60; Glucose Random 253 mg/dL (60-115); Potassium 3.6 mmol/L (3.3-5.1); Sodium 134 mmol/L (135-145)
--- NOTE | 2023-11-03 10:40 | HO.PM.IMPN ---
Subjective Subjective Date of Service: 11/03/23 Interval History: f/u on prostate abscess s/p surgery doing better, some pain Physical Exam Vital Signs: Vital Signs: Last Vital Signs Temp 97.9 F 11/03/23 07:48 Pulse 84 11/03/23 07:48 Resp 16 11/03/23 07:48 BP 122/59 L 11/03/23 07:48 Pulse Ox 92 11/03/23 07:48 O2 Del Method Room Air 11/03/23 07:48 O2 Flow Rate 4 11/02/23 15:22 BMI result Body Mass Index 31.1 General: AO X 3, no acute distress Resp: CTA bilateral CVS: S1,S2,RRR GI: +BS, NT, no distention : has suprapubic Skin: No rash Neuro: motor grossly intact Psych: appropriate affect Objective Data Active Medications Acetaminophen (Acetaminophen 325 Mg Tablet) 650 mg PO Q6H PRN PRN Reason: Pain, Mild (Pain Scale 1-3), fever or headache Amlodipine Besylate (Amlodipine Besylate 10 Mg Tablet) 10 mg PO DAILY [facility]; Protocol Last Admin: 11/03/23 08:08 Dose: 10 mg Documented By: KIMANI Atorvastatin Calcium (Atorvastatin Calcium 80 Mg Tablet) 80 mg PO DAILY [facility] Last Admin: 11/03/23 08:08 Dose: 80 mg Documented By: KIMANI Benzonatate (Benzonatate 100 Mg Capsule) 100 mg PO TID PRN PRN Reason: Cough Calcium Carbonate (Calcium Carbonate 750 Mg Tab.Chew) 750 mg PO Q4H PRN PRN Reason: Heartburn Cilostazol (Cilostazol 100 Mg Tablet) 100 mg PO BID [facility] Last Admin: 11/03/23 08:08 Dose: 100 mg Documented By: KIMANI Docusate Sodium (Docusate Sodium 100 Mg Capsule) 100 mg PO BID [facility] Last Admin: 11/03/23 08:08 Dose: 100 mg Documented By: KIMANI Doxazosin Mesylate (Doxazosin Mesylate 2 Mg Tablet) 4 mg PO BEDTIME [facility]; Protocol Last Admin: 11/02/23 20:17 Dose: 4 mg Documented By: YOAV Ezetimibe (Ezetimibe 10 Mg Tablet) 10 mg PO DAILY [facility] Last Admin: 11/03/23 08:08 Dose: 10 mg Documented By: KIMANI Escitalopram Oxalate (Escitalopram Oxalate 10 Mg Tablet) 10 mg PO DAILY [facility] Last Admin: 11/03/23 08:08 Dose: 10 mg Documented By: KIMANI Finasteride (Finasteride 5 Mg Tablet) 5 mg PO DAILY [facility] Last Admin: 11/03/23 08:07 Dose: 5 mg Documented By: KIMANI Glucose (Glucose Gel 15 Gm Gel..Gram.) 15 gm PO Q15M PRN; Protocol PRN Reason: per Hypoglycemia Standing Ord. Piperacillin Sod/Tazobactam (Sod 3.375 gm/ Sodium Chloride) 50 mls @ 100 mls/hr IV Q6H [facility] Last Infusion: 11/03/23 06:18 Dose: Infused Documented By: YOAV Dextrose (D10) 250 mls @ 750 mls/hr IV Q15M PRN; Protocol PRN Reason: per Hypoglycemia Standing Ord. Insulin Glargine (Insulin Glargine,Hum.Rec.Anlog 100 Unit/Ml 10 Ml Vial) 45 unit SUBCUT DAILY [facility] Last Admin: 11/03/23 08:09 Dose: 45 unit Documented By: KIMANI Insulin Human Lispro (Insulin Lispro 100 Unit/Ml 3 Ml Vial) 0 unit SUBCUT QIDACHS [facility]; Protocol Last Admin: 11/03/23 08:09 Dose: 4 unit Documented By: KIMANI Isosorbide Mononitrate (Isosorbide Mononitrate 60 Mg Tab.Er.24h) 60 mg PO DAILY [facility]; Protocol Last Admin: 11/03/23 08:08 Dose: 60 mg Documented By: KIMANI Magnesium Hydroxide (Milk Of Magnesia 30 Ml Oral.Susp) 30 ml PO DAILY PRN PRN Reason: Constipation Melatonin (Melatonin 3 Mg Tablet) 6 mg PO BEDTIME PRN PRN Reason: Insomnia Metoprolol Tartrate (Metoprolol Tartrate 50 Mg Tablet) 50 mg PO BID [facility]; Protocol Last Admin: 11/03/23 08:08 Dose: 50 mg Documented By: KIMANI Morphine Sulfate (Morphine Sulfate 2 Mg/Ml Cartridge) 4 mg IVPUSH Q4H PRN; Protocol PRN Reason: Pain, Severe (Pain Scale 7-10) Last Admin: 11/02/23 20:12 Dose: 4 mg Documented By: YOAV Naloxone HCl (Naloxone Hcl 0.4 Mg/Ml Vial) 0.04 mg IVPUSH Q5M PRN PRN Reason: Excessive sedation or RR < 8 Nitroglycerin (Nitroglycerin 0.4 Mg Tab.Subl) 0.4 mg SUBLINGUAL Q5M PRN PRN Reason: Chest Pain Omeprazole (Omeprazole 40 Mg Capsule.Dr) 40 mg PO BID [facility] Last Admin: 11/03/23 08:08 Dose: 40 mg Documented By: KIMANI Ondansetron HCl (Ondansetron Hcl 4 Mg/2 Ml Vial) 4 mg IVPUSH Q8H PRN PRN Reason: Nausea and Vomiting Last Admin: 11/01/23 18:38 Dose: 4 mg Documented By: BREANA Oxycodone HCl (Oxycodone Hcl Immed Release 5 Mg Tablet) 10 mg PO BID PRN PRN Reason: Pain, Moderate(Pain Scale 4-6) Last Admin: 11/02/23 23:30 Dose: 10 mg Documented By: YOAV Comments: per pt request Phenazopyridine HCl (Phenazopyridine Hcl 100 Mg Tablet) 100 mg PO BIDWM [facility] Stop: 11/03/23 17:01 Last Admin: 11/03/23 08:08 Dose: 100 mg Documented By: KIMANI Polyethylene Glycol (Polyethylene Glycol 3350 17 Gm Powd.Pack) 17 gm PO DAILY [facility] Last Admin: 11/03/23 08:07 Dose: 17 gm Documented By: KIMANI Sodium Chloride (0.9 % Sodium Chloride Flush 3 Ml Syringe) 3 ml IVFLUSH QSHIFT [facility] Last Admin: 11/03/23 07:25 Dose: Not Given Documented By: KIMANI Non-Admin Reason: IV Running Trazodone HCl (Trazodone Hcl 100 Mg Tablet) 100 mg PO BEDTIME [facility] Last Admin: 11/02/23 20:18 Dose: 100 mg Documented By: YOAV Labs 11/03/23 09:13 11/03/23 09:13 Labs: Laboratory Results - last 24 hr 11/02/23 11/02/23 11/02/23 13:42 16:53 19:31 MCV MCH MCHC RDW Plt Count MPV Absolute Nucleated RBC Nucleated RBC % (auto) Anion Gap Estim Creat Clear Calc Estimated GFR POC Glucose 160 H 196 H 291 H Random Glucose Calcium 11/03/23 11/03/23 11/03/23 07:23 07:33 09:13 MCV 83.6 MCH 28.1 MCHC 33.5 RDW 15.2 Plt Count 283 MPV 8.3 L Absolute Nucleated RBC 0.000 Nucleated RBC % (auto) 0.0 Anion Gap 12 Estim Creat Clear Calc 68.8 Estimated GFR > 60 POC Glucose 225 H 236 H Random Glucose 253 H Calcium 8.8 D Microbiology Microbiology Results: Microbiology 11/01/23 13:16 Blood Culture - Preliminary Blood - Venous No growth after 24 hours. 11/01/23 12:59 Blood Culture - Preliminary Blood - Venous No growth after 24 hours. 11/01/23 13:07 Urine Culture - Preliminary Urine Catheterized - Hair Catheter Yeast Assessment and Plan (1) Rectal abscess: Status: Acute (2) Prostatic abscess: Status: Acute Assessment and Plan: 73-year-old male with a PMH significant for?CAD s/p CABG in 2017, bladder outlet obstruction with chronic indwelling Hair, HTN, HTN, insulin-dependent type 2 diabetes, BPH, DEANDRE on CPAP, and mood disorder who presents to the ED with?worsening bladder, prostate, and rectal pain. Acute prostatitis complicated by abscess -s/p cystoscopy, suprapubic tube placement, prostatic abscess unroofing on 11/01 -continue zosyn, change to Augmentin for dc Insulin-dependent type 2 diabetes -Sliding-scale insulin, Lantus at 43 (88 at home) -Hold metformin HTN -amlodipine, irbesartan, metoprolol CAD/HLD Continue ezetimibe, isosorbide mononitrate, statin Mood disorder Continue home mood stabilizers DEANDRE -CPAP at night Obesity - Encouraged to lose weight and cutdown calories. Full Code DVT Prophylaxis: compression device, d/t some hematuria post op management for prostate abscess Quality Stroke Does the patient have a stroke diagnosis?: No VTE Prior VTE?: No VTE Risk Level:: Medical - moderate - high VTE Device Contraindication: N/A - Device Ordered VTE Drug Contraindication: Treatment Not Indicated
[2023-11-03 11:14] LABS: Glucose, Whole Blood 262 mg/dL (60-115)
[2023-11-03 16:04] LABS: Glucose, Whole Blood 190 mg/dL (60-115)
[2023-11-03] MEDS: Morphine Sulfate 2 MG/ML CARTRIDGE 4 MG IVPUSH (18:33)
[2023-11-03] MEDS: oxyCODONE HCl Immed Release 5 MG TABLET 10 MG PO (19:49)
[2023-11-03 20:31] LABS: Glucose, Whole Blood 220 mg/dL (60-115)
[2023-11-03] MEDS: Doxazosin Mesylate 2 MG TABLET 4 MG PO (20:50)
[2023-11-03] MEDS: traZODone HCL 100 MG TABLET PO (20:50)
[2023-11-03] MEDS: Melatonin 3 MG TABLET 6 MG PO (23:13)
[2023-11-03] MEDS: 0.9 % Sodium Chloride Flush 3 ML SYRINGE IVFLUSH (23:15)
[2023-11-04] VITALS (8 sets, daily range): BP systolic 123–166; BP diastolic 57–70; PULSE 76–93; RESP 16–18; TEMP 36.7–37; O2SAT 92–96
[2023-11-04] MEDS: Morphine Sulfate 2 MG/ML CARTRIDGE 4 MG IVPUSH ×4 (03:16→17:42)
[2023-11-04] MEDS: Piperacillin Sodium/Tazobactam 3.375 GM in 0.9 % Sodium Chloride 50 ML IV ×4 (05:18→22:31)
[2023-11-04] MEDS: oxyCODONE HCl Immed Release 5 MG TABLET 10 MG PO ×2 (05:55→20:01)
[2023-11-04 07:27] LABS: Glucose, Whole Blood 167 mg/dL (60-115)
[2023-11-04] MEDS: cilostazoL 100 MG TABLET PO ×2 (08:02→20:01)
[2023-11-04] MEDS: Insulin Glargine,Hum.rec.anlog 100 UNIT/ML 10 ML VIAL 45 UNIT SUBCUT (08:02)
[2023-11-04] MEDS: Metoprolol Tartrate 50 MG TABLET PO ×2 (08:02→20:00)
[2023-11-04] MEDS: Insulin Lispro 100 UNIT/ML 3 ML VIAL SUBCUT ×3 (08:02→20:00)
[2023-11-04] MEDS: Escitalopram Oxalate 10 MG TABLET PO (08:03)
[2023-11-04] MEDS: Omeprazole 40 MG CAPSULE.DR PO ×2 (08:03→20:00)
[2023-11-04] MEDS: Isosorbide Mononitrate 60 MG TAB.ER.24H PO (08:03)
[2023-11-04] MEDS: amLODIPine Besylate 10 MG TABLET PO (08:03)
[2023-11-04] MEDS: Ezetimibe 10 MG TABLET PO (08:03)
[2023-11-04] MEDS: Finasteride 5 MG TABLET PO (08:03)
[2023-11-04] MEDS: 0.9 % Sodium Chloride Flush 3 ML SYRINGE IVFLUSH ×3 (08:03→20:00)
[2023-11-04] MEDS: Atorvastatin Calcium 80 MG TABLET PO (08:03)
--- NOTE | 2023-11-04 10:25 | HO.PM.IMPN ---
Subjective Subjective Date of Service: 11/04/23 Interval History: f/u on prostate abscess s/p surgery reporting 07/18 pain but seems fairly comfortable Physical Exam Vital Signs: Vital Signs: Last Vital Signs Temp 98.2 F 11/04/23 07:15 Pulse 93 11/04/23 07:15 Resp 18 11/04/23 08:30 BP 146/68 H 11/04/23 07:15 Pulse Ox 94 11/04/23 07:15 O2 Del Method Room Air 11/04/23 07:15 O2 Flow Rate 4 11/02/23 15:22 BMI result Body Mass Index 31.1 General: AO X 3, no acute distress Resp: CTA bilateral CVS: S1,S2,RRR GI: +BS, NT, no distention : has suprapubic Skin: No rash Neuro: motor grossly intact Psych: appropriate affect Const: Other: General: AO X 3, no acute distress Resp: CTA bilateral CVS: S1,S2,RRR GI: +BS, NT, no distention Skin: No rash Neuro: motor grossly intact Psych: appropriate affect Objective Data Active Medications Acetaminophen (Acetaminophen 325 Mg Tablet) 650 mg PO Q6H PRN PRN Reason: Pain, Mild (Pain Scale 1-3), fever or headache Amlodipine Besylate (Amlodipine Besylate 10 Mg Tablet) 10 mg PO DAILY [facility]; Protocol Last Admin: 11/04/23 08:03 Dose: 10 mg Documented By: CHELSY Atorvastatin Calcium (Atorvastatin Calcium 80 Mg Tablet) 80 mg PO DAILY [facility] Last Admin: 11/04/23 08:03 Dose: 80 mg Documented By: CHELSY Benzonatate (Benzonatate 100 Mg Capsule) 100 mg PO TID PRN PRN Reason: Cough Calcium Carbonate (Calcium Carbonate 750 Mg Tab.Chew) 750 mg PO Q4H PRN PRN Reason: Heartburn Cilostazol (Cilostazol 100 Mg Tablet) 100 mg PO BID [facility] Last Admin: 11/04/23 08:02 Dose: 100 mg Documented By: CHELSY Docusate Sodium (Docusate Sodium 100 Mg Capsule) 100 mg PO BID [facility] Last Admin: 11/03/23 20:49 Dose: 100 mg Documented By: CAROLYN Doxazosin Mesylate (Doxazosin Mesylate 2 Mg Tablet) 4 mg PO BEDTIME [facility]; Protocol Last Admin: 11/03/23 20:50 Dose: 4 mg Documented By: CAROLYN Ezetimibe (Ezetimibe 10 Mg Tablet) 10 mg PO DAILY [facility] Last Admin: 11/04/23 08:03 Dose: 10 mg Documented By: CHELSY Escitalopram Oxalate (Escitalopram Oxalate 10 Mg Tablet) 10 mg PO DAILY [facility] Last Admin: 11/04/23 08:03 Dose: 10 mg Documented By: CHELSY Finasteride (Finasteride 5 Mg Tablet) 5 mg PO DAILY [facility] Last Admin: 11/04/23 08:03 Dose: 5 mg Documented By: CHELSY Glucose (Glucose Gel 15 Gm Gel..Gram.) 15 gm PO Q15M PRN; Protocol PRN Reason: per Hypoglycemia Standing Ord. Piperacillin Sod/Tazobactam (Sod 3.375 gm/ Sodium Chloride) 50 mls @ 100 mls/hr IV Q6H [facility] Last Infusion: 11/04/23 05:50 Dose: Infused Documented By: CAROLYN Dextrose (D10) 250 mls @ 750 mls/hr IV Q15M PRN; Protocol PRN Reason: per Hypoglycemia Standing Ord. Insulin Glargine (Insulin Glargine,Hum.Rec.Anlog 100 Unit/Ml 10 Ml Vial) 45 unit SUBCUT DAILY [facility] Last Admin: 11/04/23 08:02 Dose: 45 unit Documented By: CHELSY Insulin Human Lispro (Insulin Lispro 100 Unit/Ml 3 Ml Vial) 0 unit SUBCUT QIDACHS [facility]; Protocol Last Admin: 11/04/23 08:02 Dose: 2 unit Documented By: CHELSY Isosorbide Mononitrate (Isosorbide Mononitrate 60 Mg Tab.Er.24h) 60 mg PO DAILY [facility]; Protocol Last Admin: 11/04/23 08:03 Dose: 60 mg Documented By: CHELSY Magnesium Hydroxide (Milk Of Magnesia 30 Ml Oral.Susp) 30 ml PO DAILY PRN PRN Reason: Constipation Melatonin (Melatonin 3 Mg Tablet) 6 mg PO BEDTIME PRN PRN Reason: Insomnia Last Admin: 11/03/23 23:13 Dose: 6 mg Documented By: CAROLYN Metoprolol Tartrate (Metoprolol Tartrate 50 Mg Tablet) 50 mg PO BID [facility]; Protocol Last Admin: 11/04/23 08:02 Dose: 50 mg Documented By: CHELSY Morphine Sulfate (Morphine Sulfate 2 Mg/Ml Cartridge) 4 mg IVPUSH Q4H PRN; Protocol PRN Reason: Pain, Severe (Pain Scale 7-10) Last Admin: 11/04/23 08:01 Dose: 4 mg Documented By: CHELSY Naloxone HCl (Naloxone Hcl 0.4 Mg/Ml Vial) 0.04 mg IVPUSH Q5M PRN PRN Reason: Excessive sedation or RR < 8 Nitroglycerin (Nitroglycerin 0.4 Mg Tab.Subl) 0.4 mg SUBLINGUAL Q5M PRN PRN Reason: Chest Pain Omeprazole (Omeprazole 40 Mg Capsule.Dr) 40 mg PO BID [facility] Last Admin: 11/04/23 08:03 Dose: 40 mg Documented By: CHELSY Ondansetron HCl (Ondansetron Hcl 4 Mg/2 Ml Vial) 4 mg IVPUSH Q8H PRN PRN Reason: Nausea and Vomiting Last Admin: 11/01/23 18:38 Dose: 4 mg Documented By: BREANA Oxycodone HCl (Oxycodone Hcl Immed Release 5 Mg Tablet) 10 mg PO BID PRN PRN Reason: Pain, Moderate(Pain Scale 4-6) Last Admin: 11/04/23 05:55 Dose: 10 mg Documented By: CAROLYN Polyethylene Glycol (Polyethylene Glycol 3350 17 Gm Powd.Pack) 17 gm PO DAILY [facility] Last Admin: 11/03/23 08:07 Dose: 17 gm Documented By: KIMANI Sodium Chloride (0.9 % Sodium Chloride Flush 3 Ml Syringe) [facility] Last Admin: 11/04/23 08:03 Dose: 3 ml Documented By: CHELSY Trazodone HCl (Trazodone Hcl 100 Mg Tablet) 100 mg PO BEDTIME [facility] Last Admin: 11/03/23 20:50 Dose: 100 mg Documented By: CAROLYN Labs 11/03/23 09:13 11/03/23 09:13 Labs: Laboratory Results - last 24 hr 11/03/23 11/03/2324 11:07 16:00 20:08 POC Glucose 262 H 190 H 220 H 11/04/23 07:18 POC Glucose 167 H Microbiology Microbiology Results: Microbiology 11/01/23 13:16 Blood Culture - Preliminary Blood - Venous No growth after 48 hours. 11/01/23 12:59 Blood Culture - Preliminary Blood - Venous No growth after 48 hours. 11/01/23 13:07 Urine Culture - Final Urine Catheterized - Stein Catheter Lexie albicans Assessment and Plan (1) Rectal abscess: Status: Acute (2) Prostatic abscess: Status: Acute Assessment and Plan: 73-year-old male with a PMH significant for?CAD s/p CABG in 2017, bladder outlet obstruction with chronic indwelling Stein, HTN, HTN, insulin-dependent type 2 diabetes, BPH, DEANDRE on CPAP, and mood disorder who presents to the ED with?worsening bladder, prostate, and rectal pain. Acute prostatitis complicated by abscess -s/p cystoscopy, suprapubic tube placement, prostatic abscess unroofing on 11/01 -continue zosyn, change to Augmentin for dc -has suprapubic cath and stein cath--will check with uro what to do about them Insulin-dependent type 2 diabetes -Sliding-scale insulin, Lantus at 45 (88 at home) -Hold metformin HTN -amlodipine, irbesartan, metoprolol CAD/HLD -Continue ezetimibe, isosorbide mononitrate, statin Mood disorder -Continue home mood stabilizers DEANDRE -CPAP at night Obesity - Encouraged to lose weight and cutdown calories. Full Code DVT Prophylaxis: compression device, d/t some hematuria post op management for prostate abscess Quality Stroke Does the patient have a stroke diagnosis?: No VTE Prior VTE?: No VTE Risk Level:: Medical - moderate - high VTE Device Contraindication: N/A - Device Ordered VTE Drug Contraindication: Treatment Not Indicated
[2023-11-04 11:53] LABS: Glucose, Whole Blood 160 mg/dL (60-115)
--- NOTE | 2023-11-04 13:02 | MHC.CM.PN ---
EMR REVIEWED AND PER MD ROUNDS, PT IS NOT MEDICALLY CLEARED FOR DC (PAIN, POST OP, F/C AND S/P CATH, WILL NEED UROLOGY) [facility] UPDATED. CM WILL CONTINUE TO FOLLOW FOR ANY CHANGE TO DC PLAN.
[2023-11-04 16:06] LABS: Glucose, Whole Blood 142 mg/dL (60-115)
[2023-11-04] MEDS: Docusate Sodium 100 MG CAPSULE PO (20:00)
[2023-11-04] MEDS: traZODone HCL 100 MG TABLET PO (20:00)
[2023-11-04] MEDS: Doxazosin Mesylate 2 MG TABLET 4 MG PO (20:01)
[2023-11-04] MEDS: Acetaminophen 325 MG TABLET 650 MG PO (20:01)
[2023-11-04 20:08] LABS: Glucose, Whole Blood 180 mg/dL (60-115)
[2023-11-05] MEDS: Piperacillin Sodium/Tazobactam 3.375 GM in 0.9 % Sodium Chloride 50 ML IV ×4 (05:35→22:04)
[2023-11-05 06:44] LABS: Anion Gap 12 (12-20); Blood Urea Nitrogen 15 mg/dL (9-16); Calcium 9.3 mg/dL (8.4-10.2); Carbon Dioxide 26 mmol/L (22-29); Chloride 104 mmol/L (96-108); Creatinine Clr Calc Pharmacy 59.5; Estimated Glomerular Filt Rate > 60; Glucose Random 98 mg/dL (60-115); Potassium 3.6 mmol/L (3.3-5.1); Sodium 138 mmol/L (135-145)
[2023-11-05 07:09] LABS: Hematocrit 34.3 % (42.0-52.0); Hemoglobin 11.2 g/dl (14.0-18.0); Mean Corpuscular HGB Conc 32.7 g/dl (31.0-36.0); Mean Corpuscular Hemoglobin 27.4 pg (27.0-33.0); Mean Corpuscular Volume 83.9 fL (80.0-98.0); Mean Platelet Volume 8.6 fL (9.4-12.4); Platelet Count 322 X10*3/uL (160-400); Red Blood Count 4.09 X10*6/uL (4.60-5.80); Red Cell Distribution Width 15.1 % (11.0-16.0); White Blood Count 7.6 X10*3/uL (4.8-10.8)
[2023-11-05 07:14] VITALS: BP 150/68; PULSE 76; RESP 16; TEMP 36.7; O2SAT 96
[2023-11-05 07:38] LABS: Glucose, Whole Blood 112 mg/dL (60-115)
[2023-11-05] MEDS: oxyCODONE HCl Immed Release 5 MG TABLET 10 MG PO ×2 (08:33→20:45)
[2023-11-05] MEDS: Isosorbide Mononitrate 60 MG TAB.ER.24H PO (08:33)
[2023-11-05] MEDS: Acetaminophen 325 MG TABLET 650 MG PO ×2 (08:33→20:45)
[2023-11-05] MEDS: amLODIPine Besylate 10 MG TABLET PO (08:34)
[2023-11-05] MEDS: Docusate Sodium 100 MG CAPSULE PO (08:34)
[2023-11-05] MEDS: Omeprazole 40 MG CAPSULE.DR PO ×2 (08:34→20:41)
[2023-11-05] MEDS: cilostazoL 100 MG TABLET PO ×2 (08:34→20:41)
[2023-11-05] MEDS: Ezetimibe 10 MG TABLET PO (08:34)
[2023-11-05] MEDS: Escitalopram Oxalate 10 MG TABLET PO (08:34)
[2023-11-05] MEDS: Atorvastatin Calcium 80 MG TABLET PO (08:34)
[2023-11-05] MEDS: Finasteride 5 MG TABLET PO (08:35)
[2023-11-05] MEDS: 0.9 % Sodium Chloride Flush 3 ML SYRINGE IVFLUSH ×3 (08:35→20:40)
[2023-11-05] MEDS: Insulin Glargine,Hum.rec.anlog 100 UNIT/ML 10 ML VIAL 45 UNIT SUBCUT (08:35)
[2023-11-05] MEDS: Metoprolol Tartrate 50 MG TABLET PO ×2 (08:35→20:41)
--- NOTE | 2023-11-05 09:48 | P.PNIM_ITS ---
Subjective Subjective Date of Service: 11/05/23 Interval History: f/u on prostate abscess s/p surgery Pain is better, no fever, nl WBC Physical Exam 2 Vital Signs: Vital Signs: Last Vital Signs Temp 98.1 F 11/05/23 07:14 Pulse 76 11/05/23 07:14 Resp 16 11/05/23 07:14 BP 150/68 H 11/05/23 07:14 Pulse Ox 96 11/05/23 07:14 O2 Del Method Room Air 11/05/23 07:14 O2 Flow Rate 4 11/02/23 15:22 BMI result Body Mass Index 31.1 Const: Other: General: AO X 3, no acute distress Resp: CTA bilateral CVS: S1,S2,RRR GI: +BS, NT, no distention Skin: No rash Neuro: motor grossly intact Psych: appropriate affect Objective Data Active Medications Acetaminophen (Acetaminophen 325 Mg Tablet) 650 mg PO Q6H PRN PRN Reason: Pain, Mild (Pain Scale 1-3), fever or headache Last Admin: 11/05/23 08:33 Dose: 650 mg Documented By: HANNA Amlodipine Besylate (Amlodipine Besylate 10 Mg Tablet) 10 mg PO DAILY [facility]; Protocol Last Admin: 11/05/23 08:34 Dose: 10 mg Documented By: HANNA Atorvastatin Calcium (Atorvastatin Calcium 80 Mg Tablet) 80 mg PO DAILY [facility] Last Admin: 11/05/23 08:34 Dose: 80 mg Documented By: HANNA Benzonatate (Benzonatate 100 Mg Capsule) 100 mg PO TID PRN PRN Reason: Cough Calcium Carbonate (Calcium Carbonate 750 Mg Tab.Chew) 750 mg PO Q4H PRN PRN Reason: Heartburn Cilostazol (Cilostazol 100 Mg Tablet) 100 mg PO BID [facility] Last Admin: 11/05/23 08:34 Dose: 100 mg Documented By: HANNA Docusate Sodium (Docusate Sodium 100 Mg Capsule) 100 mg PO BID [facility] Last Admin: 11/05/23 08:34 Dose: 100 mg Documented By: HANNA Doxazosin Mesylate (Doxazosin Mesylate 2 Mg Tablet) 4 mg PO BEDTIME [facility]; Protocol Last Admin: 11/04/23 20:01 Dose: 4 mg Documented By: SUSANNA Ezetimibe (Ezetimibe 10 Mg Tablet) 10 mg PO DAILY [facility] Last Admin: 11/05/23 08:34 Dose: 10 mg Documented By: HANNA Escitalopram Oxalate (Escitalopram Oxalate 10 Mg Tablet) 10 mg PO DAILY [facility] Last Admin: 11/05/23 08:34 Dose: 10 mg Documented By: HANNA Finasteride (Finasteride 5 Mg Tablet) 5 mg PO DAILY [facility] Last Admin: 11/05/23 08:35 Dose: 5 mg Documented By: HANNA Glucose (Glucose Gel 15 Gm Gel..Gram.) 15 gm PO Q15M PRN; Protocol PRN Reason: per Hypoglycemia Standing Ord. Piperacillin Sod/Tazobactam (Sod 3.375 gm/ Sodium Chloride) 50 mls @ 100 mls/hr IV Q6H [facility] Last Infusion: 11/05/23 06:05 Dose: Infused Documented By: SUSANNA Dextrose (D10) 250 mls @ 750 mls/hr IV Q15M PRN; Protocol PRN Reason: per Hypoglycemia Standing Ord. Insulin Glargine (Insulin Glargine,Hum.Rec.Anlog 100 Unit/Ml 10 Ml Vial) 45 unit SUBCUT DAILY [facility] Last Admin: 11/05/23 08:35 Dose: 45 unit Documented By: HANNA Insulin Human Lispro (Insulin Lispro 100 Unit/Ml 3 Ml Vial) 0 unit SUBCUT QIDACHS [facility]; Protocol Last Admin: 11/05/23 07:56 Dose: Not Given Documented By: HANNA Non-Admin Reason: No Insulin Coverage Isosorbide Mononitrate (Isosorbide Mononitrate 60 Mg Tab.Er.24h) 60 mg PO DAILY [facility]; Protocol Last Admin: 11/05/23 08:33 Dose: 60 mg Documented By: HANNA Magnesium Hydroxide (Milk Of Magnesia 30 Ml Oral.Susp) 30 ml PO DAILY PRN PRN Reason: Constipation Melatonin (Melatonin 3 Mg Tablet) 6 mg PO BEDTIME PRN PRN Reason: Insomnia Last Admin: 11/03/23 23:13 Dose: 6 mg Documented By: CAROLYN Metoprolol Tartrate (Metoprolol Tartrate 50 Mg Tablet) 50 mg PO BID [facility]; Protocol Last Admin: 11/05/23 08:35 Dose: 50 mg Documented By: HANNA Morphine Sulfate (Morphine Sulfate 2 Mg/Ml Cartridge) 4 mg IVPUSH Q4H PRN; Protocol PRN Reason: Pain, Severe (Pain Scale 7-10) Last Admin: 11/04/23 17:42 Dose: 4 mg Documented By: CHELSY Naloxone HCl (Naloxone Hcl 0.4 Mg/Ml Vial) 0.04 mg IVPUSH Q5M PRN PRN Reason: Excessive sedation or RR < 8 Nitroglycerin (Nitroglycerin 0.4 Mg Tab.Subl) 0.4 mg SUBLINGUAL Q5M PRN PRN Reason: Chest Pain Omeprazole (Omeprazole 40 Mg Capsule.Dr) 40 mg PO BID [facility] Last Admin: 11/05/23 08:34 Dose: 40 mg Documented By: HANNA Ondansetron HCl (Ondansetron Hcl 4 Mg/2 Ml Vial) 4 mg IVPUSH Q8H PRN PRN Reason: Nausea and Vomiting Last Admin: 11/01/23 18:38 Dose: 4 mg Documented By: BREANA Oxycodone HCl (Oxycodone Hcl Immed Release 5 Mg Tablet) 10 mg PO BID PRN PRN Reason: Pain, Moderate(Pain Scale 4-6) Last Admin: 11/05/23 08:33 Dose: 10 mg Documented By: HANNA Polyethylene Glycol (Polyethylene Glycol 3350 17 Gm Powd.Pack) 17 gm PO DAILY [facility] Last Admin: 11/05/23 08:38 Dose: Not Given Documented By: HANNA Non-Admin Reason: held for diarrhea Sodium Chloride (0.9 % Sodium Chloride Flush 3 Ml Syringe) 3 ml IVFLUSH QSHIFT [facility] Last Admin: 11/05/23 08:35 Dose: 3 ml Documented By: HANNA Trazodone HCl (Trazodone Hcl 100 Mg Tablet) 100 mg PO BEDTIME [facility] Last Admin: 11/04/23 20:00 Dose: 100 mg Documented By: SUSANNA Labs 11/05/23 05:27 11/05/23 05:27 Labs: Laboratory Results - last 24 hr 11/04/23 11/04/23 11/04/23 11:48 15:50 19:55 MCV MCH MCHC RDW Plt Count MPV Absolute Nucleated RBC Nucleated RBC % (auto) Anion Gap Estim Creat Clear Calc Estimated GFR POC Glucose 160 H 142 H 180 H Random Glucose Calcium 11/05/23 11/05/23 05:27 07:17 MCV 83.9 MCH 27.4 MCHC 32.7 RDW 15.1 Plt Count 322 MPV 8.6 L Absolute Nucleated RBC 0.000 Nucleated RBC % (auto) 0.0 Anion Gap 12 Estim Creat Clear Calc 59.5 Estimated GFR > 60 POC Glucose 112 Random Glucose 98 Calcium 9.3 Assessment and Plan (1) Rectal abscess: Status: Acute (2) Prostatic abscess: Status: Acute Assessment and Plan: 73-year-old male with a PMH significant for?CAD s/p CABG in 2017, bladder outlet obstruction with chronic indwelling Stein, HTN, HTN, insulin-dependent type 2 diabetes, BPH, DEANDRE on CPAP, and mood disorder who presents to the ED with?worsening bladder, prostate, and rectal pain. Acute prostatitis complicated by abscess -s/p cystoscopy, suprapubic tube placement, prostatic abscess unroofing on 11/01 -continue zosyn, change to Augmentin for dc -has suprapubic cath and stein cath, uro is planning to remove stein today Insulin-dependent type 2 diabetes, controlled -Sliding-scale insulin, Lantus at 45 (88 at home) -Hold metformin HTN -amlodipine, irbesartan, metoprolol CAD/HLD -Continue ezetimibe, isosorbide mononitrate, statin Mood disorder -Continue home mood stabilizers DEANDRE -CPAP at night Obesity - Encouraged to lose weight and cutdown calories. Full Code DVT Prophylaxis: compression device, d/t some hematuria out of bed ambulate, vs PT eval post op management for prostate abscess Quality Stroke Does the patient have a stroke diagnosis?: No VTE Prior VTE?: No VTE Risk Level:: Medical - moderate - high VTE Device Contraindication: N/A - Device Ordered VTE Drug Contraindication: Treatment Not Indicated
[2023-11-05 11:34] LABS: Glucose, Whole Blood 149 mg/dL (60-115)
[2023-11-05 12:00] VITALS: BP 116/54; PULSE 74; RESP 16; TEMP 36.8; O2SAT 94
--- NOTE | 2023-11-05 14:29 | PC.NURSE ---
Pt is refusing to get out of bed into the chair. Education provided to pt on exercise and maintaining strength. Pt was inc of stool 2x this shift, and was able to ambulate to bathroom 1x this shift with stand by assistance.
--- NOTE | 2023-11-05 15:09 | PC.NURSE ---
Dr. Carney made aware via tiger text at 12:23 that of patient had questions about FC removal and wanted to know if he would be at the bedside this shift. No reply via tiger text received. MD Shah made aware family was inquiring about FC removal.
[2023-11-05 15:28] VITALS: BP 124/58; PULSE 76; RESP 18; TEMP 36.6; O2SAT 95
[2023-11-05 16:05] LABS: Glucose, Whole Blood 180 mg/dL (60-115)
[2023-11-05] MEDS: Insulin Lispro 100 UNIT/ML 3 ML VIAL SUBCUT ×2 (16:43→20:41)
[2023-11-05 19:00] VITALS: BP 146/65; PULSE 76; RESP 18; TEMP 36.9; O2SAT 93
[2023-11-05 20:22] LABS: Glucose, Whole Blood 158 mg/dL (60-115)
[2023-11-05] MEDS: Doxazosin Mesylate 2 MG TABLET 4 MG PO (20:41)
[2023-11-05] MEDS: traZODone HCL 100 MG TABLET PO (20:41)
[2023-11-05] MEDS: Morphine Sulfate 2 MG/ML CARTRIDGE 4 MG IVPUSH (22:08)
[2023-11-05 23:26] VITALS: BP 161/72; PULSE 84; RESP 18; TEMP 36.7; O2SAT 94
[2023-11-06] MEDS: Piperacillin Sodium/Tazobactam 3.375 GM in 0.9 % Sodium Chloride 50 ML IV ×2 (06:08→11:53)
[2023-11-06 07:06] VITALS: BP 166/75; PULSE 84; RESP 16; TEMP 37.1; O2SAT 95
[2023-11-06 07:17] LABS: Hematocrit 33.9 % (42.0-52.0); Hemoglobin 11.2 g/dl (14.0-18.0); Mean Corpuscular Hemoglobin 27.8 pg (27.0-33.0); Mean Corpuscular Volume 84.1 fL (80.0-98.0); Mean Platelet Volume 8.6 fL (9.4-12.4); Platelet Count 332 X10*3/uL (160-400); Red Blood Count 4.03 X10*6/uL (4.60-5.80); Red Cell Distribution Width 14.9 % (11.0-16.0)
[2023-11-06 07:24] LABS: Glucose, Whole Blood 126 mg/dL (60-115)
[2023-11-06] MEDS: amLODIPine Besylate 10 MG TABLET PO (07:25)
[2023-11-06] MEDS: cilostazoL 100 MG TABLET PO (07:25)
[2023-11-06] MEDS: Omeprazole 40 MG CAPSULE.DR PO (07:25)
[2023-11-06] MEDS: Escitalopram Oxalate 10 MG TABLET PO (07:25)
[2023-11-06] MEDS: Ezetimibe 10 MG TABLET PO (07:26)
[2023-11-06] MEDS: Insulin Glargine,Hum.rec.anlog 100 UNIT/ML 10 ML VIAL 45 UNIT SUBCUT (07:26)
[2023-11-06] MEDS: Atorvastatin Calcium 80 MG TABLET PO (07:26)
[2023-11-06] MEDS: Metoprolol Tartrate 50 MG TABLET PO (07:26)
[2023-11-06] MEDS: Finasteride 5 MG TABLET PO (07:26)
[2023-11-06] MEDS: Isosorbide Mononitrate 60 MG TAB.ER.24H PO (07:26)
[2023-11-06] MEDS: 0.9 % Sodium Chloride Flush 3 ML SYRINGE IVFLUSH (07:29)
[2023-11-06 08:04] LABS: Anion Gap 14 (12-20); Blood Urea Nitrogen 13 mg/dL (9-16); Calcium 9.3 mg/dL (8.4-10.2); Carbon Dioxide 25 mmol/L (22-29); Chloride 103 mmol/L (96-108); Creatinine Clr Calc Pharmacy 68.8; Estimated Glomerular Filt Rate > 60; Glucose Random 114 mg/dL (60-115); Potassium 3.6 mmol/L (3.3-5.1); Sodium 138 mmol/L (135-145)
[2023-11-06 11:18] LABS: Glucose, Whole Blood 206 mg/dL (60-115)
--- NOTE | 2023-11-06 11:22 | PC.NURSE ---
Addendum entered by Sherley Titus RN 11/06/23 11:28: FC removed at 11:25, pt tolerated well. Original Note: Spoke with MD Shah in person ok to d/c sarita wright, per MD Carney instructions.
[2023-11-06] MEDS: oxyCODONE HCl Immed Release 5 MG TABLET 10 MG PO (11:52)
[2023-11-06] MEDS: Acetaminophen 325 MG TABLET 650 MG PO (11:52)
[2023-11-06] MEDS: Insulin Lispro 100 UNIT/ML 3 ML VIAL SUBCUT (11:54)
[2023-11-06 12:00] VITALS: BP 113/56; PULSE 82; RESP 18; TEMP 37.1; O2SAT 95
--- NOTE | 2023-11-06 13:09 | P.PNUR_ITS ---
Subjective Subjective Date of Service: 11/06/23 Interval history: Hair catheter has been removed Urine emptying from suprapubic tube Will be going home with suprapubic tube Plan follow-up for SPT change in urology office Will discuss prostate procedure at that point in time Physical Exam 2 Vital Signs: Vital Signs: Last Vital Signs Temp 98.8 F 11/06/23 12:00 Pulse 82 11/06/23 12:00 Resp 18 11/06/23 12:00 BP 113/56 L 11/06/23 12:00 Pulse Ox 95 11/06/23 12:00 O2 Del Method Room Air 11/06/23 12:00 O2 Flow Rate 4 11/02/23 15:22 BMI result Body Mass Index 31.1 Const: General: cooperative, healthy appearing, comfortable and no acute distress Orientation/consciousness: patient oriented x3 HEENT: Face and sinus: Yes normal facial exam Mouth: moist mucous membranes Neck: Neck: Yes normal visual inspection, Yes full ROM and Yes trachea midline Chest: Chest palpation & inspection: normal inspection of the chest Resp: Effort & Inspection: normal respiratory effort, able to speak in complete sentences and no respiratory distress GI: Inspection: Yes normal to inspection Back/Spine/Pelvis: Cervical Spine: normal cervical lordosis Thoracic/Lumbar Spine: thoracic and lumbar spine normal to inspection Skin: General skin exam: no rashes or lesions noted Neuro: General: patient oriented x3, tone normal and moves all extremities Extrem: General: Yes normal to inspection and Yes capillary refill normal Urology Results Labs 11/06/23 05:46 11/06/23 05:46 Labs: Laboratory Results - last 24 hr 11/05/23 11/05/23 11/06/23 15:55 20:17 05:46 WBC 8.0 RBC 4.03 L Hgb 11.2 L Hct 33.9 L MCV 84.1 MCH 27.8 MCHC 33.0 RDW 14.9 Plt Count 332 MPV 8.6 L Absolute Nucleated RBC 0.000 Nucleated RBC % (auto) 0.0 Sodium 138 Potassium 3.6 Chloride 103 Carbon Dioxide 25 Anion Gap 14 BUN 13 Creatinine 0.96 Estim Creat Clear Calc 68.8 Estimated GFR > 60 POC Glucose 180 H 158 H Random Glucose 114 Calcium 9.3 11/06/23 11/06/23 07:13 11:10 WBC RBC Hgb Hct MCV MCH MCHC RDW Plt Count MPV Absolute Nucleated RBC Nucleated RBC % (auto) Sodium Potassium Chloride Carbon Dioxide Anion Gap BUN Creatinine Estim Creat Clear Calc Estimated GFR POC Glucose 126 H 206 H Random Glucose Calcium Progress Note: A&P Assessment and plan (1) Prostatic abscess: Status: Acute Plan Outpatient follow-up for suprapubic tube change and prostate procedure planning Time Spent With Patient Time: Total time managing care of this patient today ____ minutes. Progress Note: Quality Stroke Does the patient have a stroke diagnosis?: No
[2023-11-06 15:17] VITALS: BP 144/65; PULSE 71; RESP 16; TEMP 36.9; O2SAT 97
--- NOTE | 2023-11-06 16:16 | P.F2F_ITS ---
Service Date Service Date: 11/06/23 Encounter Date of encounter: 11/06/23 Reasons for Services Signs and symptoms assessed: prostate abscess Reason for nursing home: GI/ assessment Homebound: Leaving the home is medically contraindicated at this time without the asist of a device and/or another person due th the listed conditions above and below. Reason homebound: other (Pain from prostate surgery) Homebound supporting statement: homebound due to recent prosate abscess surgery causing pain and difficulty walking and therefore needs the assistance of another Doctor Certification: Based on the above findings, I certify that this patient is confined to the home and needs intermittent nursing home care, physical therapy and/or speech therapy, or continues to need occupational therapy. The patient is under my care, and I have initiated the establishment of the plan of care. The patient will be followed by a physician who will periodically review the plan of care. Time Spent With Patient Time: Total time managing care of this patient today ____ minutes.
--- NOTE | 2023-11-06 16:18 | MHC.CM.PN ---
DP: PT HAS BEEN MEDICALLY CLEARED FOR DC HOME WITH RESUMPTION OF [facility] FOR NURSING VISITS. [facility] NOTIFIED OF TODAY'S DC. [facility] WILL TRANSPORT HOME.
--- NOTE | 2023-11-06 16:25 | PM.DS ---
DS: Providers Provider Date of Service: 11/06/23 Date of admission: 11/01/23 17:33 Primary care physician: Darius Gonzales MD Consults: 11/01/23 17:13 Consult to General Surgery Routine Consulting Provider: [facility] General Surgeons Reason for consultation: Prostatitis w/abscess, perirectal abscess Consult to Urology Routine Consulting Provider: [facility] [place] Urology Services Reason for consultation: Prostatitis with abscess 11/01/23 17:28 Consult to Infectious Diseases Routine Consulting Provider: [facility] [place] Infectious Disease [facility] Reason for consultation: Prostatitis w/worsening abscess, new perirectal abscess DS: Diagnosis Discharge Diagnosis (1) Prostatic abscess: Status: Acute DS: Summary Hospital Course Hospital Course: admission hpi Chief Complaint: Prostate and rectal pain Pt is a 73-year-old male with a PMH significant for?CAD s/p CABG in 2017, bladder outlet obstruction with chronic indwelling Hair, HTN, HTN, insulin-dependent type 2 diabetes, BPH, DEANDRE on CPAP, and mood disorder who presents to the ED with?worsening bladder, prostate, and rectal pain. Patient was recently hospitalized from 10/10-10/14 and treated for acute prostatitis with possible prostate abscess. Was discharged home on levofloxacin 750 mg p.o. daily for a total of 21 days that ended yesterday. Patient states has been compliant with medications. Followed up with Dr. Carney in Urology on 10/21/2023 when he had Hair catheter placed, set to be removed 11/20/2023. Patient states has had continued suprapubic discomfort, and discomfort with urination, as well as significant rectal pain. Presents today due to worsening symptoms that have not resolved with home antibiotics. Patient otherwise has no acute medical complaints. No chest pain/pressure, palpitations. Denies shortness or breath or difficulty breathing. No fever, chills, nausea, vomiting, and diarrhea. In the ED pt was Labs were grossly unremarkable and baseline for patient. No leukocytosis. Stable H& H. No significant electrolyte abnormalities. Renal function baseline. Hepatic function WNL. CT?of abdomen and pelvis found evidence prostatitis with increased abscess formation, new perirectal abscess, and new left seminal vesicle enlargement. Pt was treated with ceftriaxone and phenazopyridine. Pt will be admitted to the hospital for treatment and further evaluation of acute prostatitis with worsening abscess and new perianal abscess that has failed outpatient therapy. interval history: Acute prostatitis complicated by abscess -s/p cystoscopy, suprapubic tube placement, prostatic abscess unroofing on 11/01 -was treated with zosyn, change to Augmentin at discharge for a total of 21 days per ID - to follow with urogy for suprapubic. Hair removed before discharge. Insulin-dependent type 2 diabetes, controlled -Sliding-scale insulin, Lantus at 45 (88 at home), advised to take 50 tomorrow and ultimately and once eating his normal meals to resume usual dose, along with metformin HTN -amlodipine, irbesartan, metoprolol CAD/HLD -Continue ezetimibe, isosorbide mononitrate, statin Mood disorder -Continue home mood stabilizers DEANDRE -CPAP at night Obesity - Encouraged to lose weight and cutdown calories. Time Attestation Discharge Coordination Time (in mins): 45 Quality: Safe Use of Opioids Does Pt have an Active Cancer Diagnosis on the Problem List?: No Quality: Stroke Does the patient have a stroke diagnosis?: No Physical Exam Vital Signs: Vital Signs: Last Vital Signs Temp 98.4 F 11/06/23 15:17 Pulse 71 11/06/23 15:17 Resp 16 11/06/23 15:17 BP 144/65 H 11/06/23 15:17 Pulse Ox 97 11/06/23 15:17 O2 Del Method Room Air 11/06/23 15:17 O2 Flow Rate 4 11/02/23 15:22 BMI result Body Mass Index 31.1 Const: Other: General: AO X 3, no acute distress Resp: CTA bilateral CVS: S1,S2,RRR GI: +BS, NT, no distention Skin: No rash Neuro: motor grossly intact Psych: appropriate affect DS: Data Data Completed and Pending Completed studies during hospitalization [Text1]: Procedures Assistance with Respiratory Ventilation, Less than 24 Consecutive Hours, Continuous Positive Airway Pressure (09/08/23) Labs on day of discharge: Laboratory Results - last 24 hr 11/05/23 11/06/23 11/06/23 20:17 05:46 07:13 WBC 8.0 RBC 4.03 L Hgb 11.2 L Hct 33.9 L MCV 84.1 MCH 27.8 MCHC 33.0 RDW 14.9 Plt Count 332 MPV 8.6 L Absolute Nucleated RBC 0.000 Nucleated RBC % (auto) 0.0 Sodium 138 Potassium 3.6 Chloride 103 Carbon Dioxide 25 Anion Gap 14 BUN 13 Creatinine 0.96 Estim Creat Clear Calc 68.8 Estimated GFR > 60 POC Glucose 158 H 126 H Random Glucose 114 Calcium 9.3 11/06/23 11:10 WBC RBC Hgb Hct MCV MCH MCHC RDW Plt Count MPV Absolute Nucleated RBC Nucleated RBC % (auto) Sodium Potassium Chloride Carbon Dioxide Anion Gap BUN Creatinine Estim Creat Clear Calc Estimated GFR POC Glucose 206 H Random Glucose Calcium Discharge Plan Discharge Anticipated Discharge Date/Time: 11/06/23 16:01 Patient Disposition: Home Health Service Discharge Diagnosis: Prostatititis and abscess Referrals: Cristobal Carney MD [Physician] - 2 Weeks Darius Gonzales MD [Primary Care Provider] - 1 Week Discharge Medications: New amoxicillin-pot clavulanate 875-125 mg tablet 1 tab PO BID 15 Days Qty: 10 0RF oxycodone 5 mg tablet 5 mg PO Q6H PRN (Reason: pain (scale score 7-10)) Qty: 14 0RF Rx Instructions: Partial Fill upon patient request. Continued nitroglycerin 0.4 mg tablet, sublingual 0.4 mg sublingual Q5M PRN (Reason: Chest Pain) Qty: 30 0RF Rx Instructions: do not exceed 3 doses per episode metoprolol tartrate 50 mg tablet 50 mg PO BID Qty: 180 3RF omeprazole 40 mg capsule,delayed release(DR/EC) 40 mg PO BID Qty: 60 6RF cilostazol 100 mg tablet 100 mg PO BID Qty: 180 3RF irbesartan 150 mg tablet 150 mg PO DAILY 90 Days Qty: 90 3RF acetaminophen 500 mg capsule 1,000 mg PO Q8H PRN (Reason: pain) Qty: 30 0RF melatonin 3 mg tablet 3 mg PO BEDTIME PRN (Reason: Sleep) Trulicity 4.5 mg/0.5 mL pen injector 4.5 mg subcut FR docusate sodium 100 mg Capsule 100 mg PO BID Qty: 30 0RF magnesium hydroxide [Milk of Magnesia] 400 mg/5 mL Suspension 30 ml PO DAILY PRN (Reason: Constipation) Qty: 355 0RF finasteride 5 mg Tablet 5 mg PO DAILY Qty: 60 0RF oxycodone 5 mg capsule 5 mg PO BID PRN (Reason: pain) Qty: 6 0RF Rx Instructions: Partial Fill upon patient request. polyethylene glycol 3350 [Miralax] 17 gram/dose powder 17 g PO DAILY Qty: 119 0RF insulin lispro [Humalog KwikPen Insulin] 100 unit/mL insulin pen 16 unit subcut TIDAC aspirin 81 mg tablet,delayed release (DR/EC) 81 mg PO DAILY isosorbide mononitrate 60 mg tablet extended release 24 hr 60 mg PO DAILY amlodipine 10 mg tablet 10 mg PO DAILY ezetimibe 10 mg tablet 10 mg PO DAILY rosuvastatin 20 mg tablet 20 mg PO DAILY doxazosin 2 mg Tablet 4 mg PO BEDTIME Qty: 60 0RF Protocol: Hold for SBP< HOLD for SBP < : 90 phenazopyridine [Pyridium] 100 mg tablet 100 mg PO BID PRN (Reason: urinary pain) escitalopram oxalate 10 mg tablet 10 mg PO DAILY metformin 1,000 mg tablet 1,000 mg PO DAILY insulin glargine [Lantus Solostar U-100 Insulin] 100 unit/mL (3 mL) insulin pen 88 unit subcut DAILY trazodone 100 mg tablet 100 mg PO BEDTIME Discharge Orders: Discharge Order (Routine); Ordered 11/06/23 Ordered By: Chaparro Shah Diet: Advance to usual diet Activity on Discharge: As tolerated Stand Alone Forms: Patient Portal Discharge page Print Language: Syriac Care Plan Goals: recovery from proste abscess Health Concerns: prostate abscess prostatitis Plan of Treatment: take Augmentin as directed and follo up with Dr. Carney tomorrow morning if you are sugars are not too high take 50 units of insulin and the following day go back to your normal dose Assessment: see above
== END 2023-11-06 17:09 | disposition home health service (06) | DRG 717 ==
LOC: HO.ED 12:25 → HO.EDOVER 17:40 → HO.S3 20:02
PROVIDERS: Internal Medicine; Physician Assistant; Urology; Admitting Provider Student in an Organized Health Care Education/Training Program; Emergency Provider Emergency Medicine; PCP Internal Medicine; Visit Provider Internal Medicine
PROC: 0T9B00Z Drainage of Bladder with Drainage Device, Open Approach (ICD-10-PCS; principal; 2023-11-02 12:50)
DX: N41.2 Abscess of prostate (principal); K61.1 Rectal abscess; N41.0 Acute prostatitis; I10 Essential (primary) hypertension; N40.1 Benign prostatic hyperplasia with lower urinary tract symptoms; I25.10 Atherosclerotic heart disease of native coronary artery without angina pectoris; E66.9 Obesity, unspecified; F39 Unspecified mood [affective] disorder; Z68.31 Body mass index [BMI] 31.0-31.9, adult; E78.5 Hyperlipidemia, unspecified; G47.33 Obstructive sleep apnea (adult) (pediatric); R33.8 Other retention of urine; J45.50 Severe persistent asthma, uncomplicated; Z95.1 Presence of aortocoronary bypass graft; Z87.891 Personal history of nicotine dependence; Z79.4 Long term (current) use of insulin; Z79.82 Long term (current) use of aspirin; Z79.84 Long term (current) use of oral hypoglycemic drugs; Z79.85 Long-term (current) use of injectable non-insulin antidiabetic drugs; Z79.899 Other long term (current) drug therapy
CPT/HCPCS: 36415; 74177; 80048; 80053; 81001; 82947; 83605; 85025; 85027; 87040; 87086; 87088; 94660; 97161; 99285; J0696; J2270; J2371; J2405; J2543; J2704; J2795; J3010; J7120; Q9967

== ENCOUNTER → 2023-11-01 17:33 | Outpatient (BNV) | payer MEDICARE, MEDICAID, SELFPAY | PROVIDERS: Admitting Provider Student in an Organized Health Care Education/Training Program; Emergency Provider Emergency Medicine; PCP Internal Medicine; Visit Provider Surgery | DX: K61.1 Rectal abscess (principal) | CPT/HCPCS: 99222 ==

== ENCOUNTER → 2023-11-01 17:33 | Outpatient (BNV) | payer MEDICARE, MEDICAID, SELFPAY | PROVIDERS: Admitting Provider Student in an Organized Health Care Education/Training Program; Emergency Provider Emergency Medicine; PCP Internal Medicine; Visit Provider Urology | DX: N39.0 Urinary tract infection, site not specified (principal); N41.2 Abscess of prostate; N40.1 Benign prostatic hyperplasia with lower urinary tract symptoms; K61.1 Rectal abscess | CPT/HCPCS: 52700; 99024; 99222 ==

== ENCOUNTER → 2023-11-01 17:33 | Outpatient (BNV) | payer MEDICARE, MEDICAID, SELFPAY | PROVIDERS: Admitting Provider Student in an Organized Health Care Education/Training Program; Emergency Provider Emergency Medicine; PCP Internal Medicine; Visit Provider Internal Medicine | DX: K61.1 Rectal abscess (principal); N32.0 Bladder-neck obstruction; N41.9 Inflammatory disease of prostate, unspecified | CPT/HCPCS: 99222 ==

== ENCOUNTER → 2023-11-01 17:33 | Outpatient (BNV) | payer MEDICARE, MEDICAID, SELFPAY | PROVIDERS: Admitting Provider Student in an Organized Health Care Education/Training Program; Emergency Provider Emergency Medicine; PCP Internal Medicine; Visit Provider Student in an Organized Health Care Education/Training Program | DX: N41.2 Abscess of prostate (principal); E11.69 Type 2 diabetes mellitus with other specified complication | CPT/HCPCS: 99222; 99231; 99232; 99239; G0180 ==

== ENCOUNTER 2023-12-03 13:31 | Outpatient (AMB) | payer MEDICARE, MEDICAID, SELFPAY ==
--- NOTE | 2023-12-03 13:38 | MHC.OFFVIS ---
Intake Visit Reasons: SPT change, prostatic abs F/U, Dis next procedure Intake Note: Patient Is Present for Post Op Follow up SPT Change/Discuss next procedure Urology Med: Finasteride, Doxazosin Antibiotic Allergy:None Blood Thinner:None Allergies No Known Allergies [No Known Allergies*] Allergy (Verified 11/02/23 13:38) HPI Comments Details: Len is a pleasant Kyrgyz-speaking male. He is a patient of Dr. Ball. He is seen for the following urologic conditions - prostatitis - lower urinary tract symptoms Presented through hospital Ended up with prostatic abscess Abscess was opened in hospital He has suprapubic tube Suprapubic tube change today Plan for GreenLight prostatectomy Prostatitis Significantly enlarged prostate Persistent pain and discomfort Has been on finasteride and doxazosin since hospital On Levaquin for E coli positive UTI PFSH Medical History Osteoarthritis of knees, bilateral Type 2 diabetes mellitus with unspecified complications Sepsis Hyperthyroidism Multinodular thyroid HLD (hyperlipidemia) HTN (hypertension) Obesity NSTEMI (non-ST elevated myocardial infarction) CAD (coronary artery disease) Diabetes mellitus Myocardial infarct Surgical History History of esophagogastroduodenoscopy (EGD) Hx of colonoscopy Hx of ultrasound guided needle biopsy Hx of CABG (~07/2016) Family History Mother Cardiovascular disease Father Medical history unknown Sister Cancer Brother Cancer Social History Household Members: Family Housing: Apartment Are you a primary critical care physician assistant to a significant other at home: No Do you presently have visiting nurse or other home services: No Alcohol intake: former Patient Tobacco Use Status: Former Tobacco user service: No Current occupational status: unemployed Review of Systems Const Denies chills and Denies fever(s) Card Reports no additional complaints and Denies syncope Resp Denies cough GI Denies abdominal pain and Denies heartburn Reports as per HPI and Denies change in libido Neuro Denies syncope Psych Denies change in libido Endo Denies change in libido Physical Exam Const General: cooperative, healthy appearing, comfortable and no acute distress Orientation/consciousness: patient oriented x3 HEENT Face and sinus: Yes normal facial exam Mouth: moist mucous membranes Neck Neck: Yes normal visual inspection, Yes full ROM and Yes trachea midline Chest Chest palpation & inspection: normal inspection of the chest Resp Effort & Inspection: normal respiratory effort, able to speak in complete sentences and no respiratory distress GI Inspection: Yes normal to inspection Back/Spine/Pelvis Cervical Spine: normal cervical lordosis Thoracic/Lumbar Spine: thoracic and lumbar spine normal to inspection Skin General skin exam: no rashes or lesions noted Neuro General: patient oriented x3, gait normal, tone normal and moves all extremities Extrem General: Yes normal to inspection and Yes capillary refill normal Office Procedures Bladder/Catheter Procedure Details: Suprapubic tube change today 18 Japanese Hair gold Clean technique [id number]-[id number] of bladder tube Procedure code (CPT) selection complete Assessment & Plan Assessment & Plan (1) Hydronephrosis: Code(s): N13.30 - Unspecified hydronephrosis Category: Medical (2) Cystitis: Code(s): N30.90 - Cystitis, unspecified without hematuria Category: Medical Plan Plan procedure Risks, benefits and alternatives to therapy were discussed. These include but are not limited to infection, bleeding, damage to local organs and tissues, need for further interventions. Anesthetic risks regarding cardiac arrhythmia, blood clots, and potential mortality were discussed. The patient understands the typical recovery time and the outpatient nature of the procedure. After consideration of these risks the patient gives full informed consent and they wish to move ahead with the procedure. GreenLight laser prostate Patient Instructions: Imaging studies, laboratory and physical exam results were discussed and reviewed in detail. No major barriers to patient understanding were identified. An opportunity to ask questions regarding the treatment plan was provided. All questions were answered. The patient expressed understanding and agreement with the above treatment plan. The patient is aware they should contact our office by phone for worsening of their current condition or the appearance of new urologic symptoms. Compliance is encouraged with any medications and followup testing that is ordered. It is a privilege to participate in the urologic care of your patient. If you have any questions or concerns regarding treatment for the above conditions, or other urologic issues, please do not hesitate to contact me. The office telephone contact is [phone]. This note is constructed using voice recognition software. While every effort has been made to ensure accuracy tennis ball cover cementer errors may have been included. Yours sincerely, Dr Cristobal Carney MD, [facility] - Urology Providers of Expert, Compassionate Care for the Genitourinary System Coding Level of Care Code Est Pt Level 4 (63688) Diagnoses Hydronephrosis N13.30 Cystitis N30.90 CPT Codes Bladder/Catheter Procedure - CPT: 70375-[id number] of bladder tube ([id number])
== END 2023-12-03 14:21 | disposition home or self-care (01) ==
PROVIDERS: PCP Internal Medicine; Visit Provider Urology
DX: N13.30 Unspecified hydronephrosis (principal); N30.90 Cystitis, unspecified without hematuria; Z96.0 Presence of urogenital implants
CPT/HCPCS: 51705; 99024

== ENCOUNTER → 2023-12-03 13:31 | Outpatient (BNVA) | payer MEDICARE, MEDICAID, SELFPAY | PROVIDERS: PCP Internal Medicine; Visit Provider Urology | DX: N13.30 Unspecified hydronephrosis (principal); N30.90 Cystitis, unspecified without hematuria | CPT/HCPCS: 51705; 99212 ==

== ENCOUNTER 2023-12-14 05:44 | Day surgery (SDC) | payer MEDICARE, MEDICAID, SELFPAY ==
[2023-12-10 09:05] VITALS: BMI 34.5
[2023-12-14] VITALS (12 sets, daily range): BP systolic 167–184; BP diastolic 70–80; PULSE 50–74; RESP 16–18; TEMP 36.1–36.7; O2SAT 95–100; BMI 31.3
[2023-12-14 06:43] LABS: Glucose, Whole Blood 141 mg/dL (60-115)
[2023-12-14] MEDS: Lactated Ringers 1,000 ML 80 ML IVCONT (06:47)
--- NOTE | 2023-12-14 07:28 | MHC.SHP ---
Pre-Procedural Eval Section A - 24 Hr Update-Section A only Date of Service: 12/14/23 The patient is an INPATIENT: No Changes since office visit: No Cold of Flu in the past 2 weeks, No New Medical Problems, No Changes in Medication and No Patient answered all questions The patient has been examined within 24 hours of the surgical procedure. The History & Physical has been completed within 30 days and I have reviewed it.: Yes Section B - Complete if H&P > 30 days Chief Complaint: Acute prostatitis Details of Present Illness: green light laser prostatectomy Present Medications: see Short Stay Collaborative assessment Medical History: Significant History History of Previous Operations: Relevant previous surgery/procedure and date(s) Allergies: Allergies Allergy/AdvReac Type Severity Reaction Status Date / Time No Known Allergies Allergy Verified 11/02/23 13:38 [No Known Allergies*] Review of Systems Sugical H&P ROS: Negative: Constitution, Cardiovascular, Respiratory, Neurological, Psychiatric, Hem-Onc, Allergic/Immunologic, Gastrointestinal, Genitourinary, Musculoskeletal, Integumentary, Endocrine and Eyes/Ears/Nose/Throat Exam Surgical H&P Exam: Normal: HEENT, Normal: Heart, Normal: Lungs, Normal: Extremities, Normal: Abdomen, Normal: Skin and Normal: Neurological Plan Diagnosis/Plan: Unchanged I have reviewed the history and physical and performed a pertinent physical examination on my patient. No changes have occurred unless specified. Time Spent With Patient Time: Total time managing care of this patient today ____ minutes.
--- NOTE | 2023-12-14 08:05 | HO.ANESPROP2 ---
[facility] Active Problems Active Problems: All Active Problems (Updated 11/14/23 @ 00:03 by Leigha Corcoran) Rectal abscess (Acute) Complication of Hair catheter (Acute) UTI (urinary tract infection) (Acute) Severe persistent asthma (Acute) Cystitis (Acute) Acute prostatitis (Acute) Prostatitis (Acute) GERD (gastroesophageal reflux disease) (Acute) Hydronephrosis (Acute) Abdominal pain (Acute) Early satiety (Acute) COVID-19 (Acute) DEANDRE on CPAP (Acute) Hyperthyroidism (Acute) Multinodular thyroid (Acute) Environmental allergies (Acute) Asthma (Acute) Morbid obesity (Acute) Essential hypertension (Acute) Atherosclerotic cardiovascular disease (Acute) Hx of CABG (Acute ~07/2016) HLD (hyperlipidemia) (Acute) HTN (hypertension) (Acute) Obesity (Acute) CAD (coronary artery disease) (Acute) Diabetes mellitus (Acute) Past Medical History Medical History Osteoarthritis of knees, bilateral Type 2 diabetes mellitus with unspecified complications Sepsis Hyperthyroidism Multinodular thyroid HLD (hyperlipidemia) HTN (hypertension) Obesity NSTEMI (non-ST elevated myocardial infarction) CAD (coronary artery disease) Diabetes mellitus Myocardial infarct Family History Family History Mother Cardiovascular disease Father Medical history unknown Sister Cancer Brother Cancer Family history of problems with anesthesia: No Surgical History Surgical History History of esophagogastroduodenoscopy (EGD) Hx of colonoscopy Hx of ultrasound guided needle biopsy Hx of CABG (~07/2016) History of Problems with Anesthesia: No Social History Social History Household Members: Family Housing: Apartment Are you a primary resident care manager to a significant other at home: No Do you presently have visiting nurse or other home services: No Alcohol intake: former Patient Tobacco Use Status: Former Tobacco user Second Hand Smoke Exposure: No Use of substances other than those prescribed or required for medical reasons: No Have you been hit, kicked, punched, or otherwise hurt by someone within the past year? If so, by whom?: No Are you DNR?: No Advance Directives: No Advance Directives Information Provided: Yes Advance Directives on File: No Recently lost weight without trying: No Eating poorly because of decreased appetite: No Nutrition Risks: No Nutritional Risk Poor oral hygiene: No service: No Current occupational status: unemployed Meds Allergies Allergy/AdvReac Type Severity Reaction Status Date / Time No Known Allergies Allergy Verified 11/02/23 13:38 [No Known Allergies*] Active Medications: Current Medications Lactated Ringer's (Lr) 1,000 mls @ 80 mls/hr IVCONT .[id number] EMELY Last Admin: 12/14/23 06:47 Dose: 80 mls/hr Levofloxacin (Levaquin) 500 mg in 100 mls @ 100 mls/hr IV PREOP ONE Stop: 12/14/23 08:25 Home Medications ?Medication ?Instructions ?Recorded ?Confirmed ?Last Taken ?Type escitalopram oxalate 10 mg tablet 10 mg PO DAILY 02/07/20 12/10/23 11/01/23 09:00 History metformin 1,000 mg tablet 1,000 mg PO DAILY 02/07/20 12/10/23 11/01/23 09:00 History insulin glargine 100 unit/mL (3 88 unit subcut DAILY 10/30/21 12/10/23 11/01/23 09:00 History mL) subcutaneous pen (Lantus Solostar U-100 Insulin) trazodone 100 mg tablet 100 mg PO BEDTIME 02/23/23 12/10/23 Unknown History amlodipine 10 mg tablet 10 mg PO DAILY 09/08/23 12/10/23 11/01/23 09:00 History aspirin 81 mg tablet,delayed 81 mg PO DAILY 09/08/23 12/10/23 11/01/23 09:00 History release ezetimibe 10 mg tablet 10 mg PO DAILY 09/08/23 12/10/23 11/01/23 09:00 History insulin lispro 100 unit/mL 16 unit subcut TIDAC 09/08/23 12/10/23 11/01/23 09:00 History subcutaneous pen (Humalog KwikPen (U-100) Insulin) isosorbide mononitrate 60 mg 60 mg PO DAILY 09/08/23 12/10/23 11/01/23 09:00 History tablet,extended release 24 hr rosuvastatin 20 mg tablet 20 mg PO DAILY 09/08/23 12/10/23 11/01/23 09:00 History dulaglutide 4.5 mg/0.5 mL 4.5 mg subcut FR 10/11/23 12/10/23 Unknown History subcutaneous pen injector (Trulicity) melatonin 3 mg tablet 3 mg PO BEDTIME PRN Sleep 10/11/23 12/10/23 Unknown History phenazopyridine 100 mg tablet 100 mg PO BID PRN urinary pain 11/01/23 12/10/23 Unknown History (Pyridium) Exam Height,Weight and Vital Signs: Height 5 ft 6 in Weight 88.054 kg Last Vital Signs Temp 98.1 F 12/14/23 06:37 Pulse 62 12/14/23 06:37 Resp 16 12/14/23 06:37 BP 174/70 H 12/14/23 06:37 Pulse Ox 95 12/14/23 06:37 O2 Del Method Room Air 12/14/23 06:37 Pertinent Lab Results Pertinent Lab Results: Laboratory Tests 12/14/23 06:40 POC Glucose 141 H Airway Mallampati Class: IV TM Dist: >3cm Neck ROM: Full Assessment and Plan Assessment Anesthesia Assessment: Anesthesia Plan Discussed and Chart Reviewed Final Anesthetic Review Family History of Problems with Anesthesia: No History of Problems with Anesthesia: No NPO: Yes ASA Class: III Final Preanesthetic Review: No Changes in Pt Med Stat, Meds/Allgs Chart Reviewed, Consent Obtained/Reviewed and Anes Risks/Benef Reviewed Patient Risk: Intermediate Procedure Risk: Intermediate Anesthetic Plan Anesthetic Plan: GA Disposition: Standard PACU
--- NOTE | 2023-12-14 08:40 | P.OP_ITS ---
Operative Note Operative Note Date of Service: 12/14/23 Narrative: PreOperative Diagnosis: Bladder outlet obstruction Post Operative Diagnosis: Bladder outlet obstruction Procedure: GreenLight Laser Enucleation of the prostate CPT 66449 Surgeon: Dr Cristobal Carney Anesthesia: General History of bladder outlet obstruction. Initial presentation was to hospital with prostatic abscess and inability urinate. Suprapubic tube placed at the time and prostatic unroofing was performed to drain the prostate He now presents 6 weeks following for completion procedure to his prostate Procedure: After informed consent was verified the patient was brought to the operating room and placed in a supine position. Anesthesia was administered per protocol. Patient was placed in modified dorsal lithotomy position and prepped and draped in a sterile fashion. Safety pause time-out was confirmed. Antibiotics have been given. A Twenty-four Polish laser cystoscope was inserted per urethra. No abnormalities were found of the anterior and bulbar urethra. The prostatic urethra shows lateral lobe crowding - with distortion following prostatitis. The bladder was examined and both ureteric orifices were seen in their normal positions away from the area of interest. Bladder trabeculation grade 2. Using a GreenLight laser with settings of 80 rueda incisions were made at the 5 and 7 o'clock position. The incisions were taken down from the bladder neck down to the level of the veru. These were gradually deepened in order to define the lateral aspects of the median lobe area. Once clearly defined they will also extended in the lateral directions in order to create a deep groove. The median lobe was then ablated and enucleated tissue released into the bladder with the laser power increased to 120 W. Once the median lobe area had been cleared attention was directed to the lateral lobes. Starting with the patient's left lateral lobe. First the 05:00 o'clock groove was further developed. This was moved in the lateral direction to undermine the tissue on the lateral side running from the bladder neck to the prostate apex. The ureteric orifice was used to guide incisions. Focus was then placed on the laser at the 1 o'clock position to developing a secondary groove down to the level of bladder fibers. The creation of a second deep groove defined a segment of intervening tissue similar to a slice of orange. At the apex of the prostate the 2 grooves were linked the us releasing the intervening tissue. This tissue was then removed with a combination of enucleation and ablation working from the apex toward the bladder neck. A similar procedure was repeated on the patient's right-hand side. The only differences being the position of the lateral groove at he 7 o'clock position and the secondary groove at the 11 o'clock position, Otherwise the procedure was developed in a mirror fashion. After the majority of tissue had been debulked remnant tissue was ablated with the side fire laser and the curve of the prostate followed up each side wall clearly defining the anterior remnant strip that remained between the 11 and 1 o'clock positions. When this was had been completed debris and pieces of prostate were removed from the bladder with irrigation. Both ureteric orifices were reviewed again in shown to be patent in away from any areas of energy damage. The apical area was reviewed in any stray ooze was controlled. A 22 Polish 30 cc balloon Hair catheter was placed over a stylet into the bladder. Clear efflux was obtained upon irrigation with a Osmin piston syringe. 30 cc was placed in the balloon and gentle traction was placed. A snap was used to hold tension on the catheter to control bleeding during patient moved and transported. A drainage bag was placed. Once transportation is complete to the PACU the snap will be removed. The patient tolerated the procedure well, he was extubated in the operating and transferred in a stable condition to the recovery area. Total Power 135 kW 20:21 Lasing time Pathology: Prostate tissue Drains: Hair catheter
[2023-12-14] MEDS: fentaNYL citrate/PF 100 MCG/2 ML VIAL 50 MCG IVPUSH ×3 (09:15→09:50)
== END 2023-12-14 11:12 | disposition home or self-care (01) ==
PROVIDERS: PCP Internal Medicine; Visit Provider Urology
PROC: (CPT 52648; principal; 2023-12-14 07:30)
DX: N40.0 Benign prostatic hyperplasia without lower urinary tract symptoms (principal); N32.0 Bladder-neck obstruction; N41.0 Acute prostatitis; N32.89 Other specified disorders of bladder; Z96.0 Presence of urogenital implants; E11.9 Type 2 diabetes mellitus without complications; I10 Essential (primary) hypertension; I25.10 Atherosclerotic heart disease of native coronary artery without angina pectoris; Z95.1 Presence of aortocoronary bypass graft; I25.2 Old myocardial infarction; E78.5 Hyperlipidemia, unspecified; G47.33 Obstructive sleep apnea (adult) (pediatric); Z99.89 Dependence on other enabling machines and devices; Z79.82 Long term (current) use of aspirin; Z79.4 Long term (current) use of insulin; Z79.84 Long term (current) use of oral hypoglycemic drugs; Z79.85 Long-term (current) use of injectable non-insulin antidiabetic drugs; Z79.899 Other long term (current) drug therapy; Z87.891 Personal history of nicotine dependence; Z56.0 Unemployment, unspecified
CPT/HCPCS: 52649; 82947; 88305; J0131; J1100; J1956; J2003; J2250; J2405; J2704; J3010

== ENCOUNTER → 2023-12-14 05:44 | Outpatient (BNV) | payer MEDICARE, MEDICAID, SELFPAY | PROVIDERS: PCP Internal Medicine; Visit Provider Urology | DX: N32.0 Bladder-neck obstruction (principal) | CPT/HCPCS: 52649 ==

== ENCOUNTER → 2023-12-21 11:24 | Outpatient (BNVA) | payer MEDICARE, MEDICAID, SELFPAY | PROVIDERS: PCP Internal Medicine | DX: Z46.6 Encounter for fitting and adjustment of urinary device (principal) ==

== ENCOUNTER 2024-01-06 13:23 | Outpatient (REF) | payer MEDICARE, MEDICAID, SELFPAY ==
--- NOTE | ~2024-01-06 | US_ITS ---
EXAMINATION: US SCROTUM CLINICAL INFORMATION: Inflammatory disease of prostate.. COMPARISON: Scrotal ultrasound 08/09/2023. TECHNIQUE: A sonogram of the scrotum was performed assessing oates-scale appearance and color Doppler flow. Spectral Doppler analysis of the arterial and venous flow were performed in the testes bilaterally. Exam submitted for review 03/03/2024 11:47 AM [facility] [employer]. FINDINGS: RIGHT: Right testicle measures 3.2 x 2.2 x 2.2 cm, volume 8.3 mL. No focal testicular parenchymal lesions are visualized. Spectral Doppler analysis of the arterial and venous flow is normal in the right testis. Right epididymal head is normal in size. No right hydrocele or varicocele is seen. Right epididymal Doppler flow is normal. LEFT: Left testicle measures 3.9 x 1.6 x 2.3 cm, volume 7.3 mL. No focal testicular parenchymal lesions are visualized. Spectral Doppler analysis of the arterial and venous flow is normal in the left testis. Left epididymal head is normal in size. There is a moderate-sized left hydrocele. There is no definite varicocele. Left epididymal Doppler flow is normal. There is a left epididymal appendage noted. US/US scrotum IMPRESSION: 1. Moderate-sized left hydrocele. Otherwise normal testicular ultrasound. Electronically signed by: Harjeet Hahn MD 03/03/2024 12:48 PM [facility] [place]
== END 2024-01-06 13:24 | disposition home or self-care (01) ==
LOC: HO.US 13:23
PROVIDERS: PCP Internal Medicine; Visit Provider Urology
DX: N41.9 Inflammatory disease of prostate, unspecified (principal); N50.819 Testicular pain, unspecified
CPT/HCPCS: 76870

== ENCOUNTER → 2024-01-06 13:25 | Outpatient (BNV) | payer MEDICARE, MEDICAID, SELFPAY | PROVIDERS: PCP Internal Medicine; Visit Provider Radiology Diagnostic Radiology | DX: N43.3 Hydrocele, unspecified (principal) | CPT/HCPCS: 76870 ==

== ENCOUNTER 2024-01-13 09:09 | Outpatient (AMB) | payer MEDICARE, MEDICAID, SELFPAY ==
[2024-01-13 09:23] VITALS: BP 130/64; PULSE 74; BMI 31.2
--- NOTE | 2024-01-13 09:23 | A.OFFVIS_ITS ---
Vital Signs 01/13/24 09:23 Height 5 ft 6 in Weight 193 lb 1.999 oz BMI 31.2 BP 130/64 Blood Pressure Location Lt brachial Position Sitting Pulse 74 Pulse Source Pulse Oximeter Intake Visit Reasons: 1 yr f/up [employer] Required: Yes [employer] Language: Cosmetic Manager Name: geraldine [id number] Accompanied by: Self / Same As Patient Allergies No Known Allergies [No Known Allergies*] Allergy (Verified 11/02/23 13:38) Medication List - Last Reconciled 01/13/24 by Jose Fuentes MD acetaminophen 1,000 mg (2 x 500 mg) PO Q8H PRN amlodipine 10 mg PO DAILY aspirin 81 mg PO DAILY belladonna alkaloids-opium 16.2-60 mg 1 supp [place] BID PRN 30 days cilostazol 100 mg PO BID docusate sodium 100 mg PO BID doxazosin 4 mg See Protocol PO BEDTIME dulaglutide (Trulicity) 4.5 mg subcut FR escitalopram oxalate 10 mg PO DAILY ezetimibe 10 mg PO DAILY finasteride 5 mg PO DAILY insulin glargine (Lantus Solostar U-100 Insulin) 88 units subcut DAILY insulin lispro (Humalog KwikPen (U-100) Insulin) 16 units subcut TIDAC irbesartan 150 mg PO DAILY 90 days isosorbide mononitrate ER 60 mg PO DAILY magnesium hydroxide (Milk of Magnesia) 30 mL PO DAILY PRN melatonin 3 mg PO BEDTIME PRN metformin 1,000 mg PO DAILY metoprolol tartrate 50 mg PO BID naproxen (EC-Naproxen) 500 mg PO BID PRN 7 days nitroglycerin 0.4 mg sublingual Q5M PRN omeprazole 40 mg PO BID oxycodone 5 mg PO Q6H PRN oxycodone 5 mg PO BID PRN phenazopyridine (Pyridium) 100 mg PO BID PRN polyethylene glycol 3350 (Miralax) 17 grams PO DAILY rosuvastatin 20 mg PO DAILY sulfamethoxazole-trimethoprim 400-80 mg (Bactrim) 1 tab PO DAILY trazodone 100 mg PO BEDTIME HPI Comments Details: Len returns for follow-up regarding coronary disease and bypass surgery. Ovallie vera, he is doing good. He has had chronic noncardiac chest pains. Has many comorbidities but overall, seems to be stable. [facility] Medical History Osteoarthritis of knees, bilateral Type 2 diabetes mellitus with unspecified complications Sepsis Hyperthyroidism Multinodular thyroid HLD (hyperlipidemia) HTN (hypertension) Obesity NSTEMI (non-ST elevated myocardial infarction) CAD (coronary artery disease) Diabetes mellitus Myocardial infarct Surgical History History of esophagogastroduodenoscopy (EGD) Hx of colonoscopy Hx of ultrasound guided needle biopsy Hx of CABG (~07/2016) Family History Mother Cardiovascular disease Father Medical history unknown Sister Cancer Brother Cancer Social History Household Members: Family Housing: Apartment Are you a primary home care chaplain to a significant other at home: No Do you presently have visiting nurse or other home services: No Alcohol intake: former Patient Tobacco Use Status: Former Tobacco user Second Hand Smoke Exposure: No service: No Current occupational status: unemployed Review of Systems Const Denies chills, Denies fatigue, Denies fever(s), Denies frequent falls, Denies weakness, Denies weight gain and Denies weight loss ENT Denies dizziness Card Denies chest pain, Denies leg edema, Denies lightheadedness, Denies palpitations, Denies dyspnea and Denies dyspnea on exertion Resp Denies cough, Denies dyspnea and Denies dyspnea on exertion GI Denies hematochezia Musc Denies abnormal gait, Denies muscle weakness, Denies numbness, Denies radiating pain into limb and Denies tingling Neuro Denies abnormal gait, Denies dizziness, Denies frequent falls, Denies numbness, Denies tingling and Denies weakness Endo Denies fatigue and Denies palpitations Physical Exam Vital Signs: Last Vital Signs Pulse 74 01/13/24 09:23 BP 130/64 01/13/24 09:23 BMI result Body Mass Index 31.2 Const General: comfortable and no acute distress Orientation/consciousness: patient oriented x3 HEENT Other: Unremarkable Head: Yes normal to inspection Neck Neck: Yes normal visual inspection Chest Chest palpation & inspection: normal inspection of the chest Resp Auscultation: clear to auscultation bilaterally Cardio Palpation: normal PMI Heart sounds: S1 normal heart sound present, S2 normal heart sound present, no gallops, no murmurs and no rubs GI Palpation (GI): Soft to palpation Back/Spine/Pelvis Other: unremarkable Skin General skin exam: no rashes or lesions noted Neuro General: patient oriented x3 Extrem General: Yes normal to inspection Psych Mental Status: mental status grossly normal Assessment & Plan Assessment & Plan (1) Atherosclerotic cardiovascular disease: Code(s): I25.10 - Atherosclerotic heart disease of unga coronary artery without angina pectoris Category: Medical Plan: Status post CABG in [place] 2016. Clinically, no angina. Continue aspirin, statins, Zetia. Most recent LDL 69 mg/dL. Triglycerides 120 mg/dL. (2) Essential hypertension: Code(s): I10 - Essential (primary) hypertension Category: Medical Plan: On irbesartan, amlodipine. Stable. Renal function stable. (3) Type 2 diabetes mellitus with unspecified complications: Code(s): E11.8 - Type 2 diabetes mellitus with unspecified complications Category: Medical Plan: No recent hemoglobin A1c. He is on insulin. Last random sugar 141 mg/dL. (4) Morbid obesity: Code(s): E66.01 - Morbid (severe) obesity due to excess calories Category: Medical Plan: It seems he has indeed lost some weight compared to before. More than 20 lb. Coding Level of Care Code Est Pt Level 4 (99080) Diagnoses Atherosclerotic cardiovascular disease I25.10 Essential hypertension I10 Type 2 diabetes mellitus with unspecified complications E11.8 Morbid obesity E66.01
--- OUTSIDE RECORDS SUMMARY | 2024-01-19 16:49 | XMS_ITS | Clinical Summary ---
Author Organization Unknown Care Team Providers Care Oncology Nurse Navigator Name Role Phone JAYNE BIRCH, SALBADOR Unavailable Unavailable VENKAT TABARES, SHITAL Unavailable Unavailable Payers Payer Name Policy Type Policy Number Effective Date Expira tion Date MEDICARE.NGS.PDGM [id number] Problems Condition Name Condition Details Condition Category Status Onset Date Resolution Date Last Treatment Date Treating Clinician Comments ATHSCL HEART DISEASE OF [place] CORONARY ARTERY W/O ANG PCTRS Active 02-09 00:00: 00 OLD MYOCARDIAL INFARCTION Active 02-09 00:00: 00 HYPERTENSIVE CHRONIC KIDNEY DISEASE W STG 1-4/UNSP CHR KDNY Active 08-21 00:00: 00 TYPE 2 DIABETES MELLITUS W DIABETIC CHRONIC KIDNEY DISEASE Active 02-09 00:00: 00 CHRONIC KIDNEY DISEASE, UNSPECIFIED Active 02-09 00:00: 00 TYPE 2 DIABETES MELLITUS WITH DIABETIC NEUROPATHY, UNSP Active 08-21 00:00: 00 TYPE 2 DIABETES MELLITUS WITH HYPERGLYCEMI A Active 02-09 00:00: 00 BILATERAL PRIMARY OSTEOARTHRIT IS OF KNEE Active 08-21 00:00: 00 CHRONIC OBSTRUCTIVE PULMONARY DISEASE, UNSPECIFIED Active 08-21 00:00: 00 MODERATE PERSISTENT ASTHMA, UNCOMPLICATE D Active 02-09 00:00: 00 TYPE 2 DIABETES W DIABETIC PERIPHERAL ANGIOPATH W/O GANGRENE Active 08-21 00:00: 00 LUMBAGO WITH SCIATICA, UNSPECIFIED SIDE Active 02-09 00:00: 00 OTHER CHRONIC PAIN Active - 00:00: 00 PRIMARY OSTEOARTHRIT IS, RIGHT ELBOW Active - 00:00: 00 PRIMARY OSTEOARTHRIT IS, LEFT ELBOW Active - 00:00: 00 TYPE 2 DIABETES MELLITUS WITH DIABETIC CATARACT Active 02-09 00:00: 00 GASTRO-ESOPH AGEAL REFLUX DISEASE WITHOUT ESOPHAGITIS Active 08-21 00:00: 00 ANXIETY DISORDER, UNSPECIFIED Active 08-21 00:00: 00 MAJOR DEPRESSIVE DISORDER, SINGLE EPISODE, UNSPECIFIED Active 08-21 00:00: 00 OBSTRUCTIVE SLEEP APNEA (ADULT) (PEDIATRIC) Active 02-09 00:00: 00 RESTLESS LEGS SYNDROME Active 02-09 00:00: 00 BENIGN PROSTATIC HYPERPLASIA WITHOUT LOWER URINRY TRACT SYMP Active 02-09 00:00: 00 HYPERLIPIDEM IA, UNSPECIFIED Active 02-09 00:00: 00 OTHER NONSPECIFIC ABNORMAL FINDING OF LUNG FIELD Active 02-09 00:00: 00 NONTOXIC SINGLE THYROID NODULE Active 02-09 00:00: 00 NONTOXIC GOITER, UNSPECIFIED Active 02-09 00:00: 00 HISTORY OF FALLING Active 08-21 00:00: 00 PERSONAL HISTORY OF NICOTINE DEPENDENCE Active 02-09 00:00: 00 PRESENCE OF AORTOCORONAR Y BYPASS GRAFT Active 02-09 00:00: 00 CLARITY DEVELOPER (CURRENT) USE OF INSULIN Active 02-09 00:00: 00 CORRECTION (CURRENT) USE OF INHALED STEROIDS Active 02-09 00:00: 00 CLARITY DEVELOPER (CURRENT) USE OF ASPIRIN Active 02-09 00:00: 00 Allergies, Adverse Reactions, Alerts Allergy Name Allergy Type Status Severity Reaction(s) Onset Date Inactive Date Treating Clinician Comments NO KNOWN ALLERGIES Propensity to adverse reactions Active 08-22 11:15: 51 Vital Signs Vital Name Observation Time Observation Value Commen ts Temperature 2019-09-06 08:21:14.000 97.8 [degF] Temperature 2019-09-02 15:38:46.000 97.8 [degF] Temperature 2019-08-23 10:47:27.000 97.7 [degF] Height 2019-08-23 11:25:46.000 66 [in_us] Pulse 2019-09-06 08:21:22.000 76 /min Pulse 2019-09-02 15:38:53.000 76 /min Pulse 2019-08-23 10:47:45.000 76 /min O2 Saturation (%) 2019-09-06 08:21:36.000 95 % O2 Saturation (%) 2019-09-02 15:41:35.000 95 % O2 Saturation (%) 2019-08-23 10:48:14.000 96 % Respirations 2019-09-06 08:21:28.000 18 /min Respirations 2019-09-02 15:38:58.000 18 /min Respirations 2019-08-23 10:47:54.000 18 /min Weight (lbs) 2019-08-23 11:25:59.000 224 [lb_av] Systolic Blood Pressure 2019-09-06 08:21:01.000 152 mm [Hg] Systolic Blood Pressure 2019-09-02 15:41:07.000 142 mm [Hg] Systolic Blood Pressure 2019-08-23 10:50:57.000 160 mm [Hg] Diastolic Blood Pressure 2019-09-06 08:21:01.000 80 mm [Hg] Diastolic Blood Pressure 2019-09-02 15:41:07.000 62 mm [Hg] Diastolic Blood Pressure 2019-08-23 10:50:57.000 84 mm [Hg] Plan of Treatment Planned Activity Planned Date Details Comments Future Scheduled Test SKILLED NU RSE TO ASSESS, EVALUATE, AND DEVELOP AN INDIVIDUALIZED PLAN OF CARE. SN TO OBSERVE/ASSESS RISK FOR FALLS AND INSTRUCT IN FALL PREVENTION, HOME SAFETY, MEDICATION MANAGEMENT, INFECTION PREVENTION, AND NUTRITION MANAGEMENT. SN MAY PERFORM O2 SATURATION LEVEL ON ADMISSION AND PRN TO ASSESS PATIENT, WITH NOTIFICATION TO THE PHYSICIAN IF SATURATION IS 90% IN THE ABSENCE OF MORE SPECIFIC PARAMETERS FROM THE PHYSICIAN. AGENCY MAY PERFORM A RESUMPTION OF CARE VISIT FOLLOWING ANY HOSPITAL ADMISSION. ALL DISCIPLINES (EXCEPT DEFENSIVE SECONDARY COACH) MAY PROVIDE TELEHEALTH PHONE/REMOTE/VIRTUAL VISITS IN LIEU OF AN IN-PERSON VISIT THAT DOES NOT REQUIRE HANDS ON OR IN PERSON ASSESSMENT WHEN AN IN-PERSON VISIT IS NOT POSSIBLE DUE TO THE PUBLIC HEALTH EMERGENCY RELATED TO THE COVID-19 PANDEMIC. SKILLED NURSE TO INSTRUCT PATIENT / CAREGIVER ON DISEASE PROCESS, SELF MANAGEMENT, SIGNS AND SYMPTOMS TO REPORT TO SN/PHYSICIAN, RELATED TO: DM, HTN, PVD, CAD. [code = SKILLED NURSE TO ASSESS, EVALUATE, AND DEVELOP AN INDIVIDUALIZED PLAN OF CARE. SN TO OBSERVE/ASSESS RISK FOR FALLS AND INSTRUCT IN FALL PREVENTION, HOME SAFETY, MEDICATION MANAGEMENT, INFECTION PREVENTION, AND NUTRITION MANAGEMENT. SN MAY PERFORM O2 SATURATION LEVEL ON ADMISSION AND PRN TO ASSESS PATIENT, WITH NOTIFICATION TO THE PHYSICIAN IF SATURATION IS 90% IN THE ABSENCE OF MORE SPECIFIC PARAMETERS FROM THE PHYSICIAN. AGENCY MAY PERFORM A RESUMPTION OF CARE VISIT FOLLOWING ANY HOSPITAL ADMISSION. ALL DISCIPLINES (EXCEPT DEFENSIVE SECONDARY COACH) MAY PROVIDE TELEHEALTH PHONE/REMOTE/VIRTUAL VISITS IN LIEU OF AN IN-PERSON VISIT THAT DOES NOT REQUIRE HANDS ON OR IN PERSON ASSESSMENT WHEN AN IN-PERSON VISIT IS NOT POSSIBLE DUE TO THE PUBLIC HEALTH EMERGENCY RELATED TO THE COVID-19 PANDEMIC. SKILLED NURSE TO INSTRUCT PATIENT / CAREGIVER ON DISEASE PROCESS, SELF MANAGEMENT, SIGNS AND SYMPTOMS TO REPORT TO SN/PHYSICIAN, RELATED TO: DM, HTN, PVD, CAD.] Future Scheduled Test MEDICATION MANAGEMENT; SKILLED NURSE TO REVIEW MEDICATIONS FOR INTERACTIONS, EFFECTIVENESS OF DRUG THERAPY, AND SIGNS/SYMPTOMS OF ADVERSE REACTIONS. MAY INSTRUCT AND REINFORCE MEDICATION TEACHING RELATED TO THE USE OF MEDICATIONS, DOSAGE, FREQUENCY, PURPOSE, SIDE EFFECTS, AND TO REPORT COMPLICATIONS. [code = MEDICATION MANAGEMENT; SKILLED NURSE TO REVIEW MEDICATIONS FOR INTERACTIONS, EFFECTIVENESS OF DRUG THERAPY, AND SIGNS/SYMPTOMS OF ADVERSE REACTIONS. MAY INSTRUCT AND REINFORCE MEDICATION TEACHING RELATED TO THE USE OF MEDICATIONS, DOSAGE, FREQUENCY, PURPOSE, SIDE EFFECTS, AND TO REPORT COMPLICATIONS.] Future Scheduled Test RISK FOR H OSPITALIZATION; SKILLED NURSE TO INSTRUCT PATIENT/CAREGIVER ON RISK FOR HOSPITALIZATION, TEACH SIGNS AND SYMPTOMS THAT PUT PATIENT AT RISK, WHEN TO NOTIFY NURSE OF COMPLICATIONS/DECLINE, AND WHEN TO CALL 911. SKILLED NURSE TO INSTRUCT PATIENT/CAREGIVER ON: SIGNS AND SYMPTOMS TO BE ON ALERT FOR EARLY INTERVENTION, PRIOR TO NEEDING EMERGENCY SERVICES CALL [facility] NURSE TO KEEP SUPERINTENDENT MAINTENANCE SYMPTOM REPORT FOR VISIBLE REFERENCE NOTIFY SKILLED NURSE/PHYSICIAN FOR DECLINE IN STATS WHEN AND HOW TO CALL HOME HEALTH AGENCY FACILITATE PHYSICIAN FOLLOW UP APPOINTMENT IDENTIFY SOCIOECONOMIC CONCERNS AND MAKE APPROPRIATE REFERRAL NEEDED [code = RISK FOR HOSPITALIZATION; SKILLED NURSE TO INSTRUCT PATIENT/CAREGIVER ON RISK FOR HOSPITALIZATION, TEACH SIGNS AND SYMPTOMS THAT PUT PATIENT AT RISK, WHEN TO NOTIFY NURSE OF COMPLICATIONS/DECLINE, AND WHEN TO CALL 911. SKILLED NURSE TO INSTRUCT PATIENT/CAREGIVER ON: SIGNS AND SYMPTOMS TO BE ON ALERT FOR EARLY INTERVENTION, PRIOR TO NEEDING EMERGENCY SERVICES CALL [facility] NURSE TO KEEP SUPERINTENDENT MAINTENANCE SYMPTOM REPORT FOR VISIBLE REFERENCE NOTIFY SKILLED NURSE/PHYSICIAN FOR DECLINE IN STATS WHEN AND HOW TO CALL HOME HEALTH AGENCY FACILITATE PHYSICIAN FOLLOW UP APPOINTMENT IDENTIFY SOCIOECONOMIC CONCERNS AND MAKE APPROPRIATE REFERRAL NEEDED ] Future Scheduled Test CARDIOVASC ULAR SYSTEM; SKILLED NURSE TO ASSESS AND TEACH RELATED TO ALTERED CARDIOVASCULAR STATUS TO MINIMIZE COMPLICATIONS AND REDUCE HOSPITALIZATION. [code = CARDIOVASCULAR SYSTEM; SKILLED NURSE TO ASSESS AND TEACH RELATED TO ALTERED CARDIOVASCULAR STATUS TO MINIMIZE COMPLICATIONS AND REDUCE HOSPITALIZATION.] Future Scheduled Test PAIN MANAG EMENT; SKILLED NURSE TO OBSERVE, ASSESS, AND PROVIDE EDUCATION ON PAIN MANAGEMENT TECHNIQUES. [code = PAIN MANAGEMENT; SKILLED NURSE TO OBSERVE, ASSESS, AND PROVIDE EDUCATION ON PAIN MANAGEMENT TECHNIQUES.] Future Scheduled Test DIABETES M ANAGEMENT; SKILLED NURSE FOR INSTRUCTIONS OF DIABETIC CARE TO INCLUDE: DIET, SKIN CARE, SIGNS AND SYMPTOMS OF HYPO/HYPERGLYCEMIA, PROPER ADMINISTRATION OF DIABETIC MEDICATION. SKILLED NURSE TO INSTRUCT ON DIABETIC FOOT CARE AND MONITOR FOR SKIN LESIONS ON LOWER EXTREMITIES. BLOOD GLUCOSE TESTING 3 TIMES A DAY. SKILLED NURSE TO ASSESS PATIENT/CAREGIVER ABILITY TO PERFORM AND RECORD BLOOD GLUCOSE TESTING ORDERED AND TO REPORT ABNORMAL FINDINGS TO PHYSICIAN. SKILLED NURSE MAY PERFORM BLOOD GLUCOSE TEST NEEDED. SKILLED NURSE TO REPORT TO PHYSICIAN BLOOD GLUCOSE READINGS GREATER THAN 350 OR LESS THAN 70. SKILLED NURSE TO INSTRUCT PATIENT ON IMPORTANCE OF HGBA1C MONITORING, KIDNEY FUNCTION TEST, EYE AND FOOT EXAMS. [code = DIABETES MANAGEMENT; SKILLED NURSE FOR INSTRUCTIONS OF DIABETIC CARE TO INCLUDE: DIET, SKIN CARE, SIGNS AND SYMPTOMS OF HYPO/HYPERGLYCEMIA, PROPER ADMINISTRATION OF DIABETIC MEDICATION. SKILLED NURSE TO INSTRUCT ON DIABETIC FOOT CARE AND MONITOR FOR SKIN LESIONS ON LOWER EXTREMITIES. BLOOD GLUCOSE TESTING 3 TIMES A DAY. SKILLED NURSE TO ASSESS PATIENT/CAREGIVER ABILITY TO PERFORM AND RECORD BLOOD GLUCOSE TESTING ORDERED AND TO REPORT ABNORMAL FINDINGS TO PHYSICIAN. SKILLED NURSE MAY PERFORM BLOOD GLUCOSE TEST NEEDED. SKILLED NURSE TO REPORT TO PHYSICIAN BLOOD GLUCOSE READINGS GREATER THAN 350 OR LESS THAN 70. SKILLED NURSE TO INSTRUCT PATIENT ON IMPORTANCE OF HGBA1C MONITORING, KIDNEY FUNCTION TEST, EYE AND FOOT EXAMS.] Future Scheduled Test FALL REDUC TION MANAGEMENT; NURSING TO PROVIDE SKILLED ASSESSMENT, EDUCATION, AND INTERVENTION TO IDENTIFY FALL RISK FACTORS SUCH MEDICATIONS THAT MAY CAUSE DIZZINESS, CHRONIC DISEASES, PSYCHOLOGICAL FACTORS, AND EMPOWER/EDUCATE PATIENT/CAREGIVER TO MINIMIZE FALL RISK. [code = FALL REDUCTION MANAGEMENT; NURSING TO PROVIDE SKILLED ASSESSMENT, EDUCATION, AND INTERVENTION TO IDENTIFY FALL RISK FACTORS SUCH MEDICATIONS THAT MAY CAUSE DIZZINESS, CHRONIC DISEASES, PSYCHOLOGICAL FACTORS, AND EMPOWER/EDUCATE PATIENT/CAREGIVER TO MINIMIZE FALL RISK.] Goal 2019-09-22 Patient Goal - H AVE MY BLOOD PRESSURE BE GOOD Goal Provider Goal - A PLAN OF CARE WILL BE ESTABLISHED THAT MEETS THE PATIENT'S NURSING NEEDS BY 10/21/2019. PATIENT WILL DEMONSTRATE OXYGEN SATURATION WITH NORMAL LIMITS OR TO PATIENT'S OPTIMAL LEVEL ESTABLISHED BY THE PHYSICIAN THROUGHOUT CARE Goal Provider Goal - PATIENT/CAREGIVER TO VERBALIZE, AND CONSISTENTLY DEMONSTRATE EFFECTIVE, SAFE MANAGEMENT OF MEDICATION INCLUDING KNOWLEDGE OF EFFECTIVENESS, POTENTIAL SIDE EFFECTS AND DRUG REACTIONS AND WHEN TO CONTACT THE APPROPRIATE CARE PROVIDER. PATIENT/CAREGIVER WILL BE ABLE TO VERBALIZE UNDERSTANDING OF MEDICATION REGIMEN AND ACCURATELY TAKE MEDICATIONS PRESCRIBED WITHOUT ADVERSE EFFECTS BY 10/21/2019. Goal Provider Goal - PATIENT/CAREGIVER WILL VERBALIZE UNDERSTANDING OF SIGNS AND SYMPTOMS THAT PUT THE PATIENT AT RISK FOR HOSPITALIZATION, WHEN TO NOTIFY SN OF COMPLICATIONS/DECLINE AND WHEN TO CALL 911. Goal Provider Goal - PATIENT / CAREGIVER WILL VERBALIZE/DEMONSTRATE UNDERSTANDING OF MEASURES TO MANAGE ALTERED CARDIOVASCULAR STATUS BY 10/21/2019. Goal Provider Goal - PATIENT / CAREGIVER WILL VERBALIZE / DEMONSTRATE UNDERSTANDING OF PAIN CONTROL MEASURES BY 10/21/2019. Goal Provider Goal - PATIENT / CAREGIVER WILL VERBALIZE / DEMONSTRATE AN ABILITY TO ADHERE TO SELF-MANAGEMENT OF DIABETES MANAGEMENT BY 10/21/2019. Goal Provider Goal - PATIENT/CAREGIVER ABLE TO IDENTIFY FALL RISK FACTORS AND IMPLEMENT STRATEGIES TO MINIMIZE FALL RISK. PATIENT/CAREGIVER WILL VERBALIZE/DEMONSTRATE AN ABILITY TO ADHERE TO FALL REDUCTION SELF MANAGEMENT AND LIFE-STYLE CHANGES AT DISCHARGE. PERSONAL GOAL(S) STATED BY PATIENT/CAREGIVER WILL BE MET BY 10/21/2019. Reason for Visit [facility] Encounters Start Date/Time End Date/Time Encounter Type Admission Type [facility] Care Department Encounter ID Discharge Date Discharge Status Discharge Condition Discharge Reason Percent Goals Met 2019-08-23 00:00:00 2019-09-22 00:00:00 Outpatient NEW ADMISSION [facility] [id number] 2019-09-22 00:00:00 DISCHARGE TO HOME OR SELF CARE [facility] HH ONLY - PER CLIENT REQUEST 26.32
== END 2024-01-13 09:43 | disposition home or self-care (01) ==
PROVIDERS: PCP Internal Medicine; Visit Provider Internal Medicine
DX: I25.10 Atherosclerotic heart disease of native coronary artery without angina pectoris (principal); I10 Essential (primary) hypertension; E11.8 Type 2 diabetes mellitus with unspecified complications; E66.01 Morbid (severe) obesity due to excess calories
CPT/HCPCS: 99214

== ENCOUNTER → 2024-01-13 09:09 | Outpatient (BNVA) | payer MEDICARE, MEDICAID, SELFPAY | PROVIDERS: PCP Internal Medicine; Visit Provider Internal Medicine | DX: I25.10 Atherosclerotic heart disease of native coronary artery without angina pectoris (principal); I10 Essential (primary) hypertension; E11.8 Type 2 diabetes mellitus with unspecified complications; E66.01 Morbid (severe) obesity due to excess calories; Z68.31 Body mass index [BMI] 31.0-31.9, adult; Z95.1 Presence of aortocoronary bypass graft | CPT/HCPCS: 99212 ==

== ENCOUNTER 2024-01-19 15:15 | Outpatient (AMB) | payer MEDICARE, MEDICAID, SELFPAY ==
--- NOTE | 2024-01-19 15:23 | A.OFFVIS_ITS ---
Intake Visit Reasons: [facility]- follow up Intake Note: Patient is present for [facility] F/U Urology Medication:NAPROXEN,BELLADONNA,BACTRIM,FINASTERIDE Antibiotic Allergy:NONE Blood Thinner:NONE Historical Interpreter Required: No Allergies No Known Allergies [No Known Allergies*] Allergy (Verified 01/19/24 15:25) HPI Comments Details: Len is a pleasant Omani-speaking male. He is a patient of Dr. Ball. He is seen for the following urologic conditions - prostatitis - lower urinary tract symptoms [facility] laser follow-up 12/02 [facility] Has been urinating for himself past 2 weeks SPT removed 2 week follow-up nursing to ensure emptying Remain on finasteride Persistent UTI in setting of diabetes add Levaquin Prostatitis Significantly enlarged prostate Persistent pain and discomfort Has been on finasteride and doxazosin since hospital On Levaquin for E coli positive UTI PFSH Medical History Osteoarthritis of knees, bilateral Type 2 diabetes mellitus with unspecified complications Sepsis Hyperthyroidism Multinodular thyroid HLD (hyperlipidemia) HTN (hypertension) Obesity NSTEMI (non-ST elevated myocardial infarction) CAD (coronary artery disease) Diabetes mellitus Myocardial infarct Surgical History History of esophagogastroduodenoscopy (EGD) Hx of colonoscopy Hx of ultrasound guided needle biopsy Hx of CABG (~07/2016) Family History Mother Cardiovascular disease Father Medical history unknown Sister Cancer Brother Cancer Social History Household Members: Family Housing: Apartment Are you a primary personal care attendant to a significant other at home: No Do you presently have visiting nurse or other home services: No Alcohol intake: former Patient Tobacco Use Status: Former Tobacco user Second Hand Smoke Exposure: No service: No Current occupational status: unemployed Review of Systems Const Denies chills and Denies fever(s) Card Reports no additional complaints and Denies syncope Resp Denies cough GI Denies abdominal pain and Denies heartburn Reports as per HPI and Denies change in libido Neuro Denies syncope Psych Denies change in libido Endo Denies change in libido Physical Exam Const General: cooperative, healthy appearing, comfortable and no acute distress Orientation/consciousness: patient oriented x3 HEENT Face and sinus: Yes normal facial exam Mouth: moist mucous membranes Neck Neck: Yes normal visual inspection, Yes full ROM and Yes trachea midline Chest Chest palpation & inspection: normal inspection of the chest Resp Effort & Inspection: normal respiratory effort, able to speak in complete sentences and no respiratory distress GI Inspection: Yes normal to inspection Back/Spine/Pelvis Cervical Spine: normal cervical lordosis Thoracic/Lumbar Spine: thoracic and lumbar spine normal to inspection Skin General skin exam: no rashes or lesions noted Neuro General: patient oriented x3, gait normal, tone normal and moves all extremities Extrem General: Yes normal to inspection and Yes capillary refill normal Results AMB Urinalysis, Automated UA Leukoctes 500 Erika/uL Last Edit by GUY Robins on 01/19/24 15:33 UA Nitrite Positive Last Edit by GUY Robins on 01/19/24 15:33 UA Urobilinogen 0.2 mg/dL Last Edit by GUY Robins on 01/19/24 15:3 3 UA Protein 100 mg/dL Last Edit by GUY Robins on 01/19/24 15:33 UA pH 6.5 Last Edit by GUY Robins on 01/19/24 15:33 UA Blood 200 Jimbo/uL Last Edit by GUY Robins on 01/19/24 15:33 UA Specific Ruby 1.015 Last Edit by GUY Robins on 01/19/24 15: 33 UA Ketone Negative Last Edit by GUY Robins on 01/19/24 15:33 UA Bilirubin 0 mg/dL Last Edit by GUY Robins on 01/19/24 15:33 UA Glucose 0 mg/dL Last Edit by GUY Robins on 01/19/24 15:33 Results Reviewed Results Reviewed: Laboratory Last Values Urine pH (Auto) 6.5 01/19/24 15:33 Specific Ruby (Auto) 1.015 01/19/24 15:33 Urine Protein (Auto) 100 mg/dL 01/19/24 15:33 Glucose (UA)(Auto) 0 mg/dL 01/19/24 15:33 Urine Ketones (Auto) Negative 01/19/24 15:33 Urine Blood (Auto) 200 Jimbo/uL 01/19/24 15:33 Urine Nitrite (Auto) Positive 01/19/24 15:33 Urine Bilirubin (Auto) 0 mg/dL 01/19/24 15:33 Urine Urobilinogen (Auto) 0.2 mg/dL 01/19/24 15:33 Leukocyte Esterase (Auto) 500 Erika/uL 01/19/24 15:33 Assessment & Plan Assessment & Plan (1) Hydronephrosis: Code(s): N13.30 - Unspecified hydronephrosis Category: Medical (2) Prostatitis: Code(s): N41.9 - Inflammatory disease of prostate, unspecified Category: Medical (3) Bladder outlet obstruction: Code(s): N32.0 - Bladder-neck obstruction Category: Medical Plan Add Levaquin Two-week follow-up Levaquin Orders: Orders AMB Urinalysis Automated 01/19/24 Z13.9 - Encounter for screening, unspecified Medications: New levofloxacin 500 mg PO DAILY 7 tabs 0RF 7 days N39.0 - Urinary tract infection, site not specified Patient Instructions: Imaging studies, laboratory and physical exam results were discussed and reviewed in detail. No major barriers to patient understanding were identified. An opportunity to ask questions regarding the treatment plan was provided. All questions were answered. The patient expressed understanding and agreement with the above treatment plan. The patient is aware they should contact our office by phone for worsening of their current condition or the appearance of new urologic symptoms. Compliance is encouraged with any medications and followup testing that is ordered. It is a privilege to participate in the urologic care of your patient. If you have any questions or concerns regarding treatment for the above conditions, or other urologic issues, please do not hesitate to contact me. The office telephone contact is [phone]. This note is constructed using voice recognition software. While every effort has been made to ensure accuracy assembly machine tender errors may have been included. Yours sincerely, Dr Cristobal Carney MD, [facility] - Urology Providers of Expert, Compassionate Care for the Genitourinary System Coding Level of Care Code Est Pt Level 4 (69585) Diagnoses Hydronephrosis N13.30 Prostatitis N41.9 Bladder outlet obstruction N32.0
== END 2024-01-19 15:41 | disposition home or self-care (01) ==
PROVIDERS: PCP Internal Medicine; Visit Provider Urology
DX: Z13.9 Encounter for screening, unspecified (principal)

== ENCOUNTER → 2024-01-19 15:15 | Outpatient (BNVA) | payer MEDICARE, MEDICAID, SELFPAY | PROVIDERS: PCP Internal Medicine; Visit Provider Urology | DX: N13.30 Unspecified hydronephrosis (principal); N41.9 Inflammatory disease of prostate, unspecified; N32.0 Bladder-neck obstruction | CPT/HCPCS: 81003; 99212 ==

== ENCOUNTER 2024-03-29 10:18 | Outpatient (AMB) | payer MEDICARE, MEDICAID, SELFPAY ==
--- NOTE | 2024-03-29 11:13 | MHC.OFFVIS ---
Intake Visit Reasons: 6W UTI Follow up-UA/PVR Intake Note: Patient presents for initial visit for 6m uti f/ua/pvr Urology Medications: finasteride allergies:none Blood Thinner:aspirin [employer] Consultant Required: No Allergies No Known Allergies [No Known Allergies*] Allergy (Verified 03/29/24 11:47) HPI Comments Details: Len is a pleasant [place]-speaking male. He is a patient of Dr. Ball. He is seen for the following urologic conditions - prostatitis - lower urinary tract symptoms [facility] follow-up 12/02 [facility] Has been urinating for himself past 2 weeks SPT removed 2 week follow-up nursing to ensure emptying Remain on finasteride Persistent UTI in setting of diabetes add Levaquin Lower urinary tract symptoms [facility] 12/02 with cover suprapubic tube Postprocedure course had urinary urgency with accidents Continued on finasteride Had persistent UTI in setting of diabetes Prostatitis Significantly enlarged prostate Persistent pain and discomfort Has been on finasteride and doxazosin since hospital On Levaquin for E coli positive UTI Required prostatic unroofing in hospital 10/02 [facility] Medical History Osteoarthritis of knees, bilateral Type 2 diabetes mellitus with unspecified complications Sepsis Hyperthyroidism Multinodular thyroid HLD (hyperlipidemia) HTN (hypertension) Obesity NSTEMI (non-ST elevated myocardial infarction) CAD (coronary artery disease) Diabetes mellitus Myocardial infarct Surgical History History of esophagogastroduodenoscopy (EGD) Hx of colonoscopy Hx of ultrasound guided needle biopsy Hx of CABG (~07/2016) Family History Mother Cardiovascular disease Father Medical history unknown Sister Cancer Brother Cancer Social History Household Members: Family Housing: Apartment Are you a primary residential care facility manager to a significant other at home: No Do you presently have visiting nurse or other home services: No Alcohol intake: former Patient Tobacco Use Status: Former Tobacco user Second Hand Smoke Exposure: No service: No Current occupational status: unemployed Office Procedures Post Void Residual Post Residual Void Post Void Residual (PVR): 10 74957-Mrel Void Residual by ultrasound Results AMB Urinalysis, Automated UA Leukoctes 0 Erika/uL Last Edit by Joce Alcala on 03/29/24 11:50 UA Nitrite Negative Last Edit by Joce Alcala on 03/29/24 11:50 UA Urobilinogen 3.5 mg/dL Last Edit by Joce Alcala on 03/29/24 11:50 UA Protein 3 mg/dL Last Edit by Joce Alcala on 03/29/24 11:50 UA pH 6.0 Last Edit by Joce Alcala on 03/29/24 11:50 UA Blood 0 Jimbo/uL Last Edit by Joce Alcala on 03/29/24 11:50 UA Specific [place] 1.020 Last Edit by Joce Alcala on 03/29/24 11:50 UA Ketone Negative Last Edit by Joce Alcala on 03/29/24 11:50 UA Bilirubin 0 mg/dL Last Edit by Joce Alcala on 03/29/24 11:50 UA Glucose 0 mg/dL Last Edit by Joce Alcala on 03/29/24 11:50 Assessment & Plan Assessment & Plan Orders: Orders AMB Urinalysis Automated Today Z13.9 - Encounter for screening, unspecified Coding CPT Codes Post Residual Void - PVR CPT Code: 75325-Frlu Void Residual by ultrasound ([id number])
--- OUTSIDE RECORDS SUMMARY | 2024-03-29 11:17 | XMS_ITS | Encounter Summary ---
Author Organization [employer] Address [address] [facility] [place] [address] Care Team Providers Care Stoneworking Sander Name Role Phone Darius Eden MD Primary Care Provide r Tip Sims PharmD Unavailable [phone] Reason for Visit * Reason Onset Date Comments Call Back Request 01/07/2023 Encounter Details Date Type Department Care Team ([facility] st Contact Info) Description 01/07/2023 Telephone [facility] [address] [place], [place] [phone] Darius Eden MD [address] [place], [place] [phone] Call Back Request Social History Tobacco Use Types Packs/Day Years Used Date Smoking Tobacco: Never Passive Smoke Exposure: Never Smokeless Tobacco: Never Depression Answer Date Recorded Patient Health Questionnaire-9 Score 6 10/14/2022 Housing Stability Answer Date Recorded What is your housing situation today? I have aicha villatoro 11/28/[address] you li ve. Do you have problems with any of the following? None of the above 11/28/2022 Food Insecurity Answer Date Recorded Within the past 12 months, y ou worried that your food would run out before you got money to buy more: Never True 11/28/2022 Within the past 12 months,th e food you bought just didn't last and you didn't have enough money to get more: Never True Transportation Answer Date Recorded In the past 12 months, has l ack of transportation kept you from medical appts, meetings, work or from getting things needed for daily living? No 11/28/2022 Utilities Answer Date Recorded In the past 12 months, has t he electric, gas, oil or water company threatened to shut off services in your home? No 11/28/2022 Depression Answer Date Recorded Patient Health Questionnaire-2 Score 1 10/14/2022 Sex and Gender Information Value Date Recorded Sex Assigned at Male 12/09/2021 10:14 AM EDT Legal Sex Male 10:14 AM EDT Gender Identity Male 12/09/2021 10:14 AM EDT Sexual Orientation Straight 12/09/2021 10 :14 AM EDT documented as of this encounter Plan of Treatment Upcoming Encounters Date Type Department Care Team (Late st Contact Info) Description 04/12/2024 11:15 AM EST Office Visit [facility] [address] [place] [phone] Darius Eden MD [address] [place] [phone] documented as of this encounter Visit Diagnoses Not on filedocumented in this encounter Additional Health Concerns Assessment Noted Time PHQ-9 Depression Total Score: 6 10/15/19 23 3:08 PM EDT documented as of this encounter Care Teams Stoneworking Sander Relationship Specialty Start Date End Date Darius Eden MD [address] [place] [phone] PCP - General Internal Medicine 05/21/21 Tip Sims, Carlos [address] [place] [phone] Pharmacist Internal Medicine 03/20/22 [facility] 03/20/22 [facility] 12/31/23 documented as of this encounter
--- OUTSIDE RECORDS SUMMARY | 2024-03-29 11:17 | XMS_ITS | Encounter Summary ---
Author Organization [employer] Address [address] [facility] [address] [place] [address] Care Team Providers Care Career Specialist Name Role Phone Darius Eden MD Primary Care Provide r Tip Sims PharmD Unavailable [phone] Reason for Visit * Reason Onset Date Comments New Med Request 09/21/2023 Encounter Details Date Type Department Care Team (Late st Contact Info) Description 09/21/2023 Telephone [facility] [address] [place], [place] [phone] Darius Eden MD [address] [place], [place] [phone] New Med Request Social History Tobacco Use Types Packs/Day [...] AM EDT documented as of this encounter Miscellaneous Notes * Telephone Encounter - Latrell Christian - 09/21/2023 1:25 PM EDT Tc from patients spouse calling to request a script for Oxycodone states the patient was taking this medication while in the hospital to alleviate the pain documented in this encounter Plan of Treatment Upcoming Encounters Date Type Department Care Team (Late st Contact Info) Description 04/12/2024 11:15 AM EST Office Visit [facility] [address] [place] [phone] Darius Eden MD [address] [place] [phone] documented as of this encounter Visit Diagnoses Not on filedocumented in this encounter Additional Health Concerns Assessment Noted Time PHQ-9 Depression Total Score: 6 10/15/19 23 3:08 PM EDT documented as of this encounter Care Teams Career Specialist Relationship Specialty Start Date End Date Darius Eden MD [address] [place] [phone] PCP - General Internal Medicine 05/21/21 Tip Sims, DevoraD [address] [place] [phone] Pharmacist Internal Medicine 03/20/22 [facility] Pharmac[facility] Pharm[facility] 03/20/22 [facility] 12/31/23 documented as of this encounter
--- OUTSIDE RECORDS SUMMARY | 2024-03-29 11:17 | XMS_ITS | Encounter Summary ---
Author Organization [facility] Address [address] [place] [address] 7[address] [place] [address] Care Team Providers Care Lens Generator Name Role Phone Darius Eden MD Primary Care Provide r Tip Sims PharmD Unavailable [phone] Encounter Details Date Type Department Care Team (Late st Contact Info) Description 03/12/2022 Telephone [facility] [address] [place] [address] [phone] Darius Eden MD [address] [place] [phone] Social History Tobacco Use Types Packs/Day Years Used Date Smoking Tobacco: Never Assessed Sex and Gender Information Value Date Recorded Sex Assigned at Male 12/09/2021 10:14 AM EDT Legal Sex Male 10:14 AM EDT Gender Identity Male 12/09/2021 10:14 AM EDT Sexual Orientation Straight 12/09/2021 10 :14 AM EDT documented as of this encounter Plan of Treatment Upcoming Encounters Date Type Department Care Team (Late st Contact Info) Description 04/12/2024 11:15 AM EST Office Visit [facility] [address] [place] [address] [phone] Darius Eden MD [address] [place] [phone] documented as of this encounter Visit Diagnoses Not on filedocumented in this encounter Care Teams Lens Generator Relationship Specialty Start Date End Date Darius Eden MD [address] [place] [phone] PCP - General Internal Medicine 05/21/21 Tip Sims, DevoraD [address] [place] [address] Pharmacist Internal Medicine 03/20/22 [facility] Pharm[facility] 03/20/22 [facility] 12/31/23 documented as of this encounter
--- OUTSIDE RECORDS SUMMARY | 2024-03-29 11:17 | XMS_ITS | Encounter Summary ---
Author Organization [employer] Address [address] [facility] [address] [place] [address] Care Team Providers Care Broker Agricultural Produce Name Role Phone aDrius Eden MD Primary Care Provide r Tip Sims PharmD Unavailable [phone] Reason for Visit * Reason Comments Med Refill Encounter Details Date Type Department Care Team ([facility] st Contact Info) Description 01/19/2023 Refill [facility] [address] [place], [place] [phone] Darius Eden MD [address] [place], [place] [phone] Mild depression Social History Tobacco Use Types Packs/Day Years [...] Description 04/12/2024 11:15 AM EST Office Visit [facility] [address] [place] [phone] Darius Eden MD [address] [place] [phone] documented as of this encounter Visit Diagnoses Diagnosis Mild depression Depressive disorder, not elsewhere classified documented in this encounter Additional Health Concerns Assessment Noted Time PHQ-9 Depression Total Score: 6 10/15/19 23 3:08 PM EDT documented as of this encounter Care Teams Broker Agricultural Produce Relationship Specialty Start Date End Date Darius Eden MD [address] [place] [phone] PCP - General Internal Medicine 05/21/21 Tip Sims, DevoraD [address] [place] [phone] Pharmacist Internal Medicine 03/20/22 [facility] Pharmacist Pharm[facility] 03/20/22 [facility] 12/31/23 documented as of this encounter
--- OUTSIDE RECORDS SUMMARY | 2024-03-29 11:17 | XMS_ITS | Encounter Summary ---
Author Organization [employer] Address 75 [facility] 7t [place] [address] Care Team Providers Care Fishing Game Warden Name Role Phone Darius Eden MD Primary Care Provide r Tip Sims PharmD Unavailable [phone] Reason for Visit * Reason Comments Med Refill Encounter Details Date Type Department Care Team (Late st Contact Info) Description 02/16/2024 Refill [facility] CH[facility] MED & PEDS [address] [place] [address] Darius Eden MD [address] [place], [place] [phone] Primary insomnia Social History Tobacco Use Types Packs/Day Years Used Date Smoking Tobacco: Never Passive Smoke Exposure: Never Smokeless Tobacco: Never Alcohol Use Standard Drinks/Week Comments Never 0 (1 standard drink = 0.6 oz pur e alcohol) Depression Answer Date Recorded Patient Health Questionnaire-9 Score 0 11/19/2023 Patient Health Questionnaire-9 Score 0 11/19/2023 Last PHQ-9: Questionnaire Data Not on file 1 Housing Stability Answer Date Recorded What is your housing situation today? I have aicha shauna 10/16/[address] you li ve. Do you have problems with any of the following? None of the above 10/16/2023 Food Insecurity Answer Date Recorded Within the past 12 months, y ou worried that your food would run out before you got money to buy more: Never True 10/16/2023 Within the past 12 months,th e food you bought just didn't last and you didn't have enough money to get more: Never True 07/2023 Transportation Answer Date Recorded In the past 12 months, has l ack of transportation kept you from medical appts, meetings, work or from getting things needed for daily living? No 10/16/2023 Utilities Answer Date Recorded In the past 12 months, has t he electric, gas, oil or water company threatened to shut off services in your home? No 10/16/2023 Depression Answer Date Recorded Patient Health Questionnaire-2 Score 0 11/19/2023 Internet Access Answer Date Recorded Internet Access Q1 Yes 10/16/2023 Internet Access Q2 Not on file 10/16/2023 Sex and Gender Information Value Date Recorded Sex Assigned at Male 12/09/2021 10:14 AM EDT Legal Sex Male 10:14 AM EDT Gender Identity Male 12/09/2021 10:14 AM EDT Sexual Orientation Straight 12/09/2021 10 :14 AM EDT documented as of this encounter Plan of Treatment Upcoming Encounters Date Type Department Care Team (Late st Contact Info) Description 04/12/2024 11:15 AM EST Office Visit [facility] MEDICINE [address] [place] [address] Darius Eden MD [address] [place] [address] documented as of this encounter Visit Diagnoses Diagnosis Primary insomnia Persistent disorder of initiating or maintaining sleep documented in this encounter Additional Health Concerns Assessment Noted Time PHQ-9 Depression Total Score: 0 11/19/19 24 10:20 AM EDT documented as of this encounter Care Teams Fishing Game Warden Relationship Specialty Start Date End Date Darius Eden MD [address] [place] [address] PCP - General Internal Medicine 05/21/21 Tip Sims, DevoraD [address] [place] [address] Pharmacist Internal Medicine 03/20/22 [facility] 03/20/22 [facility] 12/31/23 documented as of this encounter
--- OUTSIDE RECORDS SUMMARY | 2024-03-29 11:17 | XMS_ITS | Encounter Summary ---
Author Organization [employer] Address 75 [facility] 7t [place] [address] Care Team Providers Care Ribbon Blocker Name Role Phone Darius Eden MD Primary Care Provide r Tip Sims PharmD Unavailable [phone] Reason for Visit * Reason Comments Med Refill Encounter Details Date Type Department Care Team (Late st Contact Info) Description 03/16/2024 Refill [facility] MEDICINE [address] [place], [place] [phone] Darius Eden MD 230 [place], [place] [phone] Type 2 diabetes mellitus with other specified complication, unspecified whether termite control service representative insulin use ([facility]) Social History Tobacco Use Types Packs/Day Years [...] housing situation today? I have aicha villatoro 10/16/[address] you li [...] Description 04/12/2024 11:15 AM EST Office Visit [facility] MEDICINE [address] [place] [address] Darius Eden MD [address] [place] [address] documented as of this encounter Visit Diagnoses Diagnosis Type 2 diabetes mellitus with other specified complication, unspecified whether [facility] insulin use ([facility]) documented in this encounter Additional Health Concerns Assessment Noted Time PHQ-9 Depression Total Score: 0 11/19/19 24 10:20 AM EDT documented as of this encounter Care Teams Ribbon Blocker Relationship Specialty Start Date End Date Darius Eden MD [address] [place] [address] PCP - General Internal Medicine 05/21/21 Tip Sims, Carlos [address] [place] [address] Pharmacist Internal Medicine 03/20/22 [facility] 03/20/22 [facility] 12/31/23 documented as of this encounter
--- OUTSIDE RECORDS SUMMARY | 2024-03-29 11:17 | XMS_ITS | Encounter Summary ---
Author Organization [employer] Address 75 [facility] 7t [place] [address] Care Team Providers Care Chauffeur Name Role Phone Darius Eden MD Primary Care Provide r Tip Sims PharmD Unavailable [phone] Reason for Visit * Reason Comments Med Refill Encounter Details Date Type Department Care Team ([facility] st Contact Info) Description 03/09/2023 Refill [facility] MEDICINE 230 [place], [place] [phone] Darius Eden MD 230 [place], [place] [phone] Acute cough Social History Tobacco Use Types Packs/Day Years [...] Description 04/12/2024 11:15 AM EST Office Visit [facility] MEDICINE [address] [place] [address] Darius Eden MD [address] [place] [address] documented as of this encounter Visit Diagnoses Diagnosis Acute cough documented in this encounter Additional Health Concerns Assessment Noted Time PHQ-9 Depression Total Score: 6 10/15/19 23 3:08 PM EDT documented as of this encounter Care Teams Chauffeur Relationship Specialty Start Date End Date Darius Eden MD [address] [place] [address] PCP - General Internal Medicine 05/21/21 Tip Sims, PharmD [address] [place] [address] Pharmacist Internal Medicine 03/20/22 [facility] 03/20/22 [facility] 12/31/23 documented as of this encounter
--- OUTSIDE RECORDS SUMMARY | 2024-03-29 11:17 | XMS_ITS | Encounter Summary ---
Author Organization [employer] Address 75 [facility] 7t [place] [address] Care Team Providers Care Health Safety Engineer Name Role Phone Darius Eden MD Primary Care Provide r Tip Sims PharmD Unavailable [phone] Reason for Visit * Reason Comments Med Refill Encounter Details Date Type Department Care Team (Late st Contact Info) Description 02/11/[address] [facility] CHC MED & PEDS [address] [place] [phone] Darius Eden MD 230 [place], [place] [phone] Depressive disorder; Primary insomnia Social History Tobacco Use Types [...] your housing situation today? I have aicha sing 10/16/[address] you li [...] Description 04/12/2024 11:15 AM EST Office [address] [facility] MEDICINE [address] [place] [address] Darius Eden MD [address] [place] [address] documented as of this encounter Visit Diagnoses Diagnosis Depressive disorder Depressive disorder, not elsewhere classified Primary insomnia Persistent disorder of initiating or maintaining sleep documented in this encounter Additional Health Concerns Assessment Noted Time PHQ-9 Depression Total Score: 0 11/19/19 24 10:20 AM EDT documented as of this encounter Care Teams Health Safety Engineer Relationship Specialty Start Date End Date Darius Eden MD [address] [place] [address] PCP - General Internal Medicine 05/21/21 Tip Sims, DevoraD [address] [place] [address] Pharmacist Internal Medicine 03/20/22 [facility] 03/20/22 [facility] 12/31/23 documented as of this encounter
--- OUTSIDE RECORDS SUMMARY | 2024-03-29 11:17 | XMS_ITS | Encounter Summary ---
Author Organization [employer] Address 75 [facility] 7t [place] [address] Care Team Providers Care Alodize Machine Operator Name Role Phone Darius Eden MD Primary Care Provide r Tip Sims PharmD Unavailable [phone] Reason for Visit * Reason Onset Date Comments Med Refill 10/26/2023 Encounter Details Date Type Department Care Team (Late st Contact Info) Description 10/26/2023 Telephone [facility] MEDICINE [address] [place], [place] [phone] Darius Eden MD [address] [place], [place] [phone] Med Refill Social History Tobacco Use Types Packs/Day Years [...] Recorded Patient Health Questionnaire-2 Score 1 10/14/2022 Internet Access Answer Date Recorded Internet Access [...] encounter Miscellaneous Notes * Telephone Encounter - Rosaline Lamb LPN - 10/26/2023 3:11 PM EDT Medication pended to provider. * Telephone Encounter - Latrell Christian - 10/26/2023 3:10 PM EDT TC from pt requesting medication refill. Medications needing refill : Acetaminophen Extra Strength 500 MG tablet To be sent to: [facility] - [place], [place] - [address] [facility] documented in this encounter Plan of Treatment Upcoming Encounters Date Type Department Care Team (Late st Contact Info) Description 04/12/2024 11:15 AM EST Office Visit [facility] MEDICINE [address] [place] [address] Darius Edne MD [address] [place] [address] documented as of this encounter Visit Diagnoses Not on filedocumented in this encounter Additional Health Concerns Assessment Noted Time PHQ-9 Depression Total Score: 6 10/15/19 23 3:08 PM EDT documented as of this encounter Care Teams Alodize Machine Operator Relationship Specialty Start Date End Date Darius Eden MD [address] [place] [address] PCP - General Internal Medicine 05/21/21 Tip Sims, DevoraD [address] [place] [address] Pharmacist Internal Medicine 03/20/22 [facility] 03/20/22 [facility] 12/31/23 documented as of this encounter
--- OUTSIDE RECORDS SUMMARY | 2024-03-29 11:17 | XMS_ITS | Encounter Summary ---
Author Organization [employer] Address 75 [facility] 7t [place] [address] Care Team Providers Care Grain Oilseed Or Pasture Farm Manager Name Role Phone Darius Eden MD Primary Care Provide r Tip Sims PharmD Unavailable [phone] Reason for Visit * Reason Comments Med Change Request Encounter Details Date Type Department Care Team ([facility] st Contact Info) Description 11/20/2023 Refill [facility] MEDICINE 230 [place], [place] [phone] Darius Eden MD 230 [place], [place] [phone] Primary insomnia Social History Tobacco Use Types [...] is your housing situation today? I have aichashazia villatoro 10/16/[address] you [...] Description 04/12/2024 11:15 AM EST Office Visit [facility] MEDICINE [address] [place] [address] Darius Eden MD [address] [place] [address] documented as of this encounter Visit Diagnoses Diagnosis Primary insomnia Persistent disorder of initiating or maintaining sleep documented in this encounter Additional Health Concerns Assessment Noted Time PHQ-9 Depression Total Score: 0 11/19/19 24 10:20 AM EDT documented as of this encounter Care Teams Grain Oilseed Or Pasture Farm Manager Relationship Specialty Start Date End Date Darius Eden MD [address] [place] [address] PCP - General Internal Medicine 05/21/21 Tip Sims PharmD [address] [place] [address] Pharmacist Internal Medicine 03/20/22 [facility] 03/20/22 [facility] 12/31/23 documented as of this encounter
--- OUTSIDE RECORDS SUMMARY | 2024-03-29 11:17 | XMS_ITS | Encounter Summary ---
Author Organization [employer] Address [address] [place] [address] 7t [place] [address] Care Team Providers Care Organisational Psychologist Name Role Phone Darius Eden MD Primary Care Provide r Tip Sims PharmD Unavailable [phone] Encounter Details Date Type Department Care Team (Late st Contact Info) Description 03/05/2022 Orders Only [facility] CHC MED & PEDS [address] [place] [address] Rosaline Lamb LPN Social History Tobacco Use Types Packs/Day Years [...] Description 04/12/2024 11:15 AM EST Office Visit [facility] MEDICINE 230 [place] [address] Darius Eden MD [address] [place] [address] documented as of this encounter Visit Diagnoses Not on filedocumented in this encounter Care Teams Organisational Psychologist Relationship Specialty Start Date End Date Darius Eden MD [address] [place], [place] [phone] PCP - General Internal Medicine 05/21/21 Tip Sims, DevoraD [address] [place] [address] Pharmacist Internal Medicine 03/20/22 [facility] 03/20/22 [facility] 12/31/23 documented as of this encounter
--- OUTSIDE RECORDS SUMMARY | 2024-03-29 11:17 | XMS_ITS | Encounter Summary ---
Author Organization [employer] Address 75 [facility] 7t [place] [address] Care Team Providers Care Jewel Bearing Grinder Name Role Phone Darius Eden MD Primary Care Provide r Tip Sims PharmD Unavailable [phone] Reason for Visit * Reason Comments Med Refill Encounter Details Date Type Department Care Team (Late st Contact Info) Description 03/10/2024 Refill [facility] MEDICINE 230 [place], [place] [phone] Darisu Eden MD 230 [place], [place] [phone] Mild depression Social History Tobacco Use Types [...] Description 04/12/2024 11:15 AM EST Office Visit [facility] MEDICINE [address] [place] [address] Darius Eden MD [address] [place] [address] documented as of this encounter Visit Diagnoses Diagnosis Mild depression Depressive disorder, not elsewhere classified documented in this encounter Additional Health Concerns Assessment Noted Time PHQ-9 Depression Total Score: 0 11/19/19 24 10:20 AM EDT documented as of this encounter Care Teams Jewel Bearing Grinder Relationship Specialty Start Date End Date Darius Eden MD [address] [place] [address] PCP - General Internal Medicine 05/21/21 Tip Sims, Carlos [address] [place] [address] Pharmacist Internal Medicine 03/20/22 [facility] 03/20/22 [facility] 12/31/23 documented as of this encounter
--- OUTSIDE RECORDS SUMMARY | 2024-03-29 11:17 | XMS_ITS | Encounter Summary ---
Author Organization [facility] Address [address] [place] [address] 7t [place] [address] Care Team Providers Care Pick Pulling Machine Operator Name Role Phone Darius Eden MD Primary Care Provide r Tip Sims PharmD Unavailable [phone] Encounter Details Date Type Department Care Team (Late st Contact Info) Description 03/05/2022 Orders Only [facility] MEDICINE [address] [place] [phone] Britney Burton LPN Social History Tobacco Use Types Packs/Day [...] Description 04/12/2024 11:15 AM EST Office Visit [facility] MEDICINE [address] [place] [address] Darius Eden MD [address] [place] [address] documented as of this encounter Visit Diagnoses Not on filedocumented in this encounter Care Teams Pick Pulling Machine Operator Relationship Specialty Start Date End Date Darius Eden MD [address] [place] [address] PCP - General Internal Medicine 05/21/21 Tip Sims, PharmD [address] [place] [address] Pharmacist Internal Medicine 03/20/22 [facility] 03/20/22 [facility] 12/31/23 documented as of this encounter
--- OUTSIDE RECORDS SUMMARY | 2024-03-29 11:17 | XMS_ITS | Clinical Summary ---
Author Organization [facility] Address [address] [place] [address] Care Team Providers Care Guest Relations Agent Name Role Phone Lauren Whyte Primary Care Provider + Surgical History Surgery Date Site/Laterality Comments CARPAL TUNNEL RELEASE PROCEDURE: UT NEUROPLASTY &/TRANSPOS MEDIAN NRV CARPAL TUNNE COLONOSCOPY 07/20/2014 PROCEDURE: HISTORICAL COLONOSCOPY; COMMENT: Diverticulosis and Colon polyps x 2: Tubular adenoma and sessile serrated adenoma. Dr. Hill. CORONARY ARTERY BYPASS GRAFT 08/2016 PROCEDURE: HISTORICAL CABG CATARACT EXTRACTION 2015 PROCEDURE: HISTORICAL CATARACT REMOVAL COLONOSCOPY 05/2004 PROCEDURE: HISTORICAL COLONOSCOPY; COMMENT: diverticulosis and internal hemorrhoids COLONOSCOPY 10/09/2017 PROCEDURE: HISTORICAL COLONOSCOPY; COMMENT: 5 mm right colon polyp; inadequate visualization of the cecum---tubular adenoma. COLONOSCOPY 08/08/2020 PROCEDURE: HISTORICAL COLONOSCOPY; COMMENT: Aborted 03/13 poor prep. Medical History Medical History Date Comments Anxiety 03/23/2012 DX:Anxiety Depression 03/23/2012 DX:Depression Diabetic cataract ([facility]) 09/07/2014 DX:D iabetic cataract ([facility]) GERD (gastroesophageal reflux disease) 01/12/2012 DX:GERD (gastroesophageal reflux disease) Type II or unspecified type diabetes mellitus with ophthalmic manifestations, uncontrolled(250.52) ([facility]) 06/26/2013 DX:Type II or unspecified ty pe diabetes mellitus with ophthalmic manifestations, uncontrolled(250.52) ([facility]) Tinnitus of right ear 12/07/2012 DX:Tinnitu s of right ear PVD (peripheral vascular dis ease) ([facility]) 06/22/2014 DX:PVD (peripheral vascular disease) ([facility]) Obstructive sleep apnea 05/27/2013 DX:Obstr uctive sleep apnea; COMMENT: Dr. Thornton, neurologist at [facility] 02/06/13: AHI 102.4, O2 sat 86%. Excellent response to CPAP 16. Historical Medical DX 01/12/2012 DX:Hyperli pidemia LDL goal < 100 Essential hypertension, benign 01/12/2012 D X:Essential hypertension, benign Erectile dysfunction 05/25/2012 DX:Erectile dysfunction Posterior vitreous detachmen t of both eyes 09/14/2014 DX:Posterior vitreous detach ment of both eyes Glaucoma suspect 09/14/2014 DX:Glaucoma raghav pect Glaucoma suspect 09/14/2014 DX:Glaucoma raghav pect History of carpal tunnel release 09/14/2014 DX:History of carpal tunnel release Diabetes mellitus type 2 wit h neurological manifestations (CMS/HCC) 09/14/2014 DX:Diabetes kartik itus type 2 with neurological manifestations (HCC) Microalbuminuria 09/14/2014 DX:Microalbumin uria 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) 09/14/2014 DX:Type 2 diabetes mellitus with renal manifestations (HCC) Multiple pulmonary nodules 10/19/2014 DX:Mu ltiple pulmonary nodules 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 01/13/2017 DX:Chronic right-sided low b ack pain with sciatica RLS (restless legs syndrome) 01/13/2017 DX: RLS (restless legs syndrome) BPH (benign prostatic hyperplasia) 01/13/2017 DX:BPH (benign prostatic hyperplasia) Type 2 diabetes mellitus wit h peripheral vascular disease (CMS/HCC) 06/26/2013 DX:Type 2 diabet es mellitus with peripheral vascular disease (HCC) Arthritis 01/13/2017 DX:Arthritis; CO MMENT: Elbows, knees Asthma 03/08/2012 DX:Asthma Atherosclerosis of [place] co ronary artery of [place] heart with angina pectoris (CMS/HCC) 06/12/2015 DX:Atherosclerosis of [place] coronary artery of [place] heart with angina pectoris (HCC) Balanitis 05/25/2012 DX:Balanitis Hyperlipidemia 01/12/2012 DX:Hyperlipidemi a; COMMENT: IMO update Old myocardial infarction 12/25/2014 DX:Old myocardial infarction; COMMENT: NSTEMI (non-ST elevated myocardial infarction) S/P CABG x 4 11/13/2016 DX:S/P CABG x 4; COMMENT: 08/2016 SHETH to LAD, SVG to Diag, Marginal, & PDA Thyroid nodule 06/13/2015 DX:Thyroid nodul e Type 2 diabetes mellitus wit h neurological manifestations, uncontrolled 09/14/2014 DX:Type 2 diabetes mellitus with neurological manifestations, uncontrolled Uncontrolled type 2 diabetes mellitus with cataract 06/26/2013 DX:Uncontrolled type 2 diabe seema mellitus with cataract Pedal edema 06/22/2017 DX:Pedal edema Family History Medical History Relation Name Comments Prostate cancer Brother 1 Breast cancer Sister x3 Blindness Neg Hx Cataracts Neg Hx Colon cancer Neg Hx Glaucoma Neg Hx Macular degeneration Neg Hx Strabismus Neg Hx Relation Name Status Comments Brother 1 Brother 2 DM Father estranged Mother estranged Sister Social History Tobacco Use Types Packs/Day Years Used Date Smoking Tobacco: Former Cigarettes 0 07/15/1968 - 02/09/1998 Smokeless Tobacco: Never Alcohol Use Standard Drinks/Week Comments No 0 (1 standard drink = 0.6 oz pur e alcohol) Sex and Gender Information Value Date Recorded Sex Assigned at Not on file Legal Sex Male 9:51 AM EST Gender Identity Not on file Sexual Orientation Not on file Obstetrics History Plan of Treatment Health Maintenance Due Date Last Done Comments Diabetes: Annual GFR (Glomerular Filtration Rate) 1948 Diabetes: Annual Foot Exam 1958 Diabetes: Annual Retina Eye Exam 1958 Zoster Vaccines (1 of 2) 1998 Abdominal Aortic Aneurysm (AAA) Screen 01/07/2022 Cholesterol Screening (Lipid Panel) 01/07/2022 Colorectal Cancer Screening: Colonoscopy 01/07/2022 Falls Risk Assessment 01/07/2022 Hepatitis C Screening 01/07/2022 Social Influencers of Health Screening 01/07/2022 Diabetes: Annual Urine Albumin-Creatinine Ratio (uACR) 01/24/2022 Diabetes: Blood Sugar Control Test (HGBA1C) 01/24/2022 Hypertension/CHF/CAD Annual BMP Blood Test 01/24/2022 RSV Immunization Patients 60+ Years Old (1 - 1-dose 75+ series) 08/20/2023 COVID-19 Vaccine ( season) 2023 06/10/2020, 05/13/2020 Influenza Vaccine (#1) 2023 0, 10/21/2019, 10/04/2018, Additional history exists Depression Screening 10/15/2023 10/14/2022 DTaP,Tdap,and Td Vaccines (3 - Td or Tdap) 04/01/2026 04/01/2016, 03/26/1995 Pneumococcal Vaccine: 50+ Years Completed 04/01/2016, 09/13/2013, 10/31/1999 HIB Vaccines Aged Out No longer eligi ble based on patient's age to complete this topic HPV Vaccines Aged Out No longer eligi ble based on patient's age to complete this topic Hepatitis A Vaccines Aged Out No long er eligible based on patient's age to complete this topic Hepatitis B Vaccines Aged Out No long er eligible based on patient's age to complete this topic IPV Vaccines Aged Out No longer eligi ble based on patient's age to complete this topic MMR Vaccines Aged Out No longer eligi ble based on patient's age to complete this topic Meningococcal ACWY Vaccine Aged Out N o longer eligible based on patient's age to complete this topic Meningococcal B Vacine Aged Out No lo nger eligible based on patient's age to complete this topic RSV Immunization Patients Under 20 months Aged Out No longer eligible based on patient's age to complete this topic Varicella Vaccines Aged Out No longer eligible based on patient's age to complete this topic Care Teams Guest Relations Agent Relationship Specialty Start Date End Date Lauren Whyte PA PCP - General Internal Medicine 01/24/21
--- OUTSIDE RECORDS SUMMARY | 2024-03-29 11:17 | XMS_ITS | Encounter Summary ---
Author Organization [employer] Address [address] [facility] [address] [place] [address] Care Team Providers Care Program Director/Air Personality Name Role Phone Darius Eden MD Primary Care Provide r Tip Sims PharmD Unavailable [phone] Reason for Visit * Reason Comments Med Refill Encounter Details Date Type Department Care Team (Late st Contact Info) Description 03/16/2024 Refill [facility] MED[facility]INE [address] [place], [place] [phone] Adriana An FNP [address] [place] [address] Type 2 diabetes mellitus without complication, with long-term current use of insulin ([facility]); Type 2 diabetes mellitus with other specified complication, unspecified whether terminal gauger supervisor insulin use ([facility]) Social History Tobacco Use Types Packs/Day Years [...] Description 04/12/2024 11:15 AM EST Office Visit [facility] MEDICINE [address] [place] [phone] Darius Eden MD [address] [place] [phone] documented as of this encounter Visit Diagnoses Diagnosis Type 2 diabetes mellitus without complication, with long-term current use of insulin (CMS/HCC) Type 2 diabetes mellitus with other specified complication, unspecified whether shelter insulin use (CMS/HCC) documented in this encounter Additional Health Concerns Assessment Noted Time PHQ-9 Depression Total Score: 0 11/19/19 24 10:20 AM EDT documented as of this encounter Care Teams Program Director/Air Personality Relationship Specialty Start Date End Date Darius Eden MD [address] [place] [id number] PCP - General Internal Medicine 05/21/21 Tip Sims, DevoraD [address] [place] [address] Pharmacist Internal Medicine 03/20/22 [facility] Pharmacist Pharmacy 03/20/22 [facility] 12/31/23 documented as of this encounter
--- OUTSIDE RECORDS SUMMARY | 2024-03-29 11:17 | XMS_ITS | Encounter Summary ---
Author Organization [employer] Address [address] [facility] [address] [place] [address] Care Team Providers Care After School Coordinator Name Role Phone Darius Eden MD Primary Care Provide r Tip Sims PharmD Unavailable [phone] Reason for Visit * Reason Onset Date Comments Chart Prep 03/25/2024 Encounter Details Date Type Department Care Team ([facility] st Contact Info) Description 03/25/2024 Telephone [facility] MEDICINE [address] [place], [place] [phone] Darius Eden MD [address] [place], [place] [phone] Chart Prep Social History Tobacco Use Types Packs/Day Years [...] encounter Miscellaneous Notes * Telephone Encounter - Shanti Castro MA - 03/25/2024 11:02 AM EST Chart Prep Labs: not applicable Images: not applicable Vaccines due: Covid Due, Flu Due, RSV in Pharmacy Due, and Shingles in pharmacy Due Referrals: Not Applicable Screenings: Eye Exam and Foot Exam Overdue care gaps: A1C, Glucose, and Sbirt Chart prep for upcoming appt with Dr.Esparza mercer. LB documented in this encounter Plan of Treatment Upcoming Encounters Date Type Department Care Team (Late st Contact Info) Description 04/12/2024 11:15 AM EST Office Visit [facility] MEDICINE [address] [place] [address] Darius Eden MD [address] [place] [address] documented as of this encounter Visit Diagnoses Not on filedocumented in this encounter Additional Health Concerns Assessment Noted Time PHQ-9 Depression Total Score: 0 11/19/19 24 10:20 AM EDT documented as of this encounter Care Teams After School Coordinator Relationship Specialty Start Date End Date Darius Eden MD [address] [place] [address] PCP - General Internal Medicine 05/21/21 Tip Sims, DevoraD [address] [place] [address] Pharmacist Internal Medicine 03/20/22 [facility] Pharmacist Pharmacy 03/20/22 [facility] 12/31/23 documented as of this encounter
--- OUTSIDE RECORDS SUMMARY | 2024-03-29 11:17 | XMS_ITS | Clinical Summary ---
Author Organization [employer] Address [address] [place] [address] [address] [place] [address] Care Team Providers Care Archaeology Professor Name Role Phone Darius Edne MD Primary Care Provide r Tip Sims PharmD Unavailable [phone] Allergies No known active allergies Medications Breo Ellipta 100-25 MCG/ACT aerosol powder INHALE 1 PUFF EVERY DAY AT THE SAME TIME Active metoprolol tartrate (Lopressor) 50 MG tablet Take 50 mg by mouth 2 times daily. Active Xolair 150 MG/ML injection Active Xolair 75 MG/0.5ML injection Active rosuvastatin (Crestor) 20 MG tablet Take 20 mg by mouth in the morning. Active isosorbide mononitrate ER (Imdur) 60 MG 24 hr tablet Take 60 mg by mouth in the morning. Active irbesartan (Avapro) 150 MG tablet Take 150 mg by mouth in the morning. Active ezetimibe (Zetia) 10 MG tablet Take 10 mg by mouth in the morning. Active cilostazol (Pletal) 100 MG tablet TAKE 1 TABLET BY MOUTH TWICE DAILY IN THE MORNING AND IN THE EVENING Active Aspirin Low Dose 81 MG EC tablet Take 81 mg by mouth in the morning. Active amLODIPine (Norvasc) 10 MG tablet Take 10 mg by mouth in the morning. Active LIFESCAN FINEPOINT LANCETS miscIndication s:Type 2 diabetes mellitus without complication, unspecified whether manager intermediate insulin use ([facility]) Test 3 times a day 90 each 11 Active Ventolin HFA 108 (90 Base) MCG/ACT inhaler INHALE 2 PUFFS EVERY 4 TO 6 HOURS NEEDED 18 g 2 Active Blood Glucose Monitoring Suppl (Metanautix Verio Flex System) w/Device kitIndications :Type 2 diabetes mellitus without complication, unspecified whether manager intermediate insulin use (CMS/HCC) USE DAILY 1 kit Active omeprazole (PriLOSEC) [address] capsule Take 1 capsule by mouth before breakfast and before evening meal. Active doxazosin (Cardura) 2 MG tablet Take 2 tablets (4 mg) by mouth at bedtime. 60 tablet Active docusate sodium (Colace) 100 MG capsule Take 100 mg by mouth 2 times daily. Active finasteride (Proscar) 5 MG tablet Take 1 tablet by mouth Once per day. Active nitroglycerin (Nitrostat) 0.[address] 0.4 mg under the tongue every 5 (five) minutes if needed for chest pain. Call 911 if no relief. Do not exceed 3 tablets per episode Active polyethylene glycol, PEG, 3350 (Glycolax) 17 GM/SCOOP powder Take 17 g by mouth Once per day. Active traZODone (Desyrel) 100 MG tabletIndicati ons:Primary insomnia Take 1.5 tablets (150 mg) by mouth at bedtime. 30 tablet 3 Active Multiple Vitamin (multivitamin) tabletIndicati ons:Type 2 diabetes mellitus with other specified complication, unspecified whether manager intermediate insulin use ([facility]) Take 1 tablet by mouth Once per day. 30 tablet 11 Active insulin pen needle (Easy Touch Pen [place]) 31G X 8 mm misc USE DIRECTED FOUR TIMES DAILY 100 each 11 Active Acetaminophen Extra Strength 500 MG tabletIndicati ons:Acute pain of right knee TAKE 2 TABLETS BY MOUTH EVERY 8 HOURS NEEDED FOR PAIN 60 tablet 11/19/2 024 Active escitalopram (Lexapro) 10 MG tabletIndicati ons:Depressive disorder TAKE 1 TABLET BY MOUTH EVERY EVENING 30 tablet 3 025 Active Lantus SoloStar 100 UNIT/ML penIndications :Type 2 diabetes mellitus without complication, with long-term current use of insulin (CMS/HCC) INJECT 80 UNITS SUBCUTANEOUSLY ONCE DAILY 30 mL 1 025 Active melatonin 3 MG tabletIndicati ons:Mild depression TAKE 1 TABLET BY MOUTH AT BEDTIME 30 tablet 3 025 Active insulin lispro (HumaLOG KWIKPEN) 100 UNIT/ML injectionIndic ations:Type 2 diabetes mellitus without complication, with long-term current use of insulin (CMS/HCC) INJECT 16 UNITS SUBCUTANEOUSLY PER SLIDING SCALE BEFORE MEALS DIRECTED 15 mL 025 Active Dulaglutide 4.5 MG/0.5ML solution auto-injectorI ndications:Typ e 2 diabetes mellitus with other specified complication, unspecified whether manager intermediate insulin use (CMS/HCC) Inject 4.5 mg under the skin 1 (one) time per week. 2 mL 3 025 Active dulaglutide (Trulicity) 4.5 MG/0.5ML solution pen-injectorIn dications:Type 2 diabetes mellitus with other specified complication, unspecified whether correction insulin use (CMS/HCC) Inject 4.5 mg under the skin 1 (one) time per week. 4 each 024 2024 Discontinued(R eorder (will not trigger notification to Pharmacy)) insulin lispro (HumaLOG KWIKPEN) 100 UNIT/ML injectionIndic ations:Type 2 diabetes mellitus without complication, with long-term current use of insulin (CMS/HCC) INJECT 16 UNITS PER SLIDING SCALE BEFORE MEALS DIRECTED 15 mL 024 2024 Discontinued melatonin 3 MG tabletIndicati ons:Mild depression TAKE 1 TABLET BY MOUTH AT BEDTIME 30 tablet 3 024 2024 Discontinued Active Problems Problem Noted Date Diagnosed Date Hospital discharge follow-up 11/19/2023 Assessment & Plan (11/19/2023 10:42 AM EDT): Patient here for a HDF Admitted to [facility] for prostate and rectal pain. PMH significant for bladder outlet obstruction With chronic indwelling Hair. He initially presented to the ED with worsening bladder, prostate, and rectal pain. Of note patient Patient had a recent hospitalization from 10/10-10/14 and was treated for acute prostatitis with possible prostate abscess. He was discharged home on levofloxacin 750 mg p.o. daily for a total of 21 days that ended the day before his last admission. Patient followed up with Dr. Carney in Urology on 10/21/2023 when he had Hair catheter placed, set to be removed 11/20/2023. Patient stated had continued suprapubic discomfort, and discomfort with urination, as well as significant rectal pain. So he Presented again to the ED due to worsening symptoms that had not resolved with home antibiotics. Patient otherwise has no acute medical complaints. In the ED pt's Labs were grossly unremarkable and baseline for patient. No leukocytosis. Stable H H. No significant electrolyte abnormalities. Renal function baseline. Hepatic function WNL. CT of abdomen and pelvis found evidence prostatitis with increased abscess formation, new perirectal abscess, and new left seminal vesicle enlargement. Pt was treated with ceftriaxone and phenazopyridine and subsequently admitted to the hospital for treatment of acute prostatitis with worsening abscess and new perianal abscess that has failed outpatient therapy. Today pt feels better, he finished his Antibiotices, still has suprapubic catheter in place and has a follow up with Dr. Carney tomorrow for removal Prostatic abscess 11/19/2023 Assessment & Plan (11/19/2023 10:42 AM EDT): Pt here for a HDF discharged 11/06/2023 s/p cystoscopy, suprapubic tube placement, prostatic abscess unroofing on 11/01 . Pt was treated with zosyn, changed to Augmentin at discharge for a total of 21 days per ID . Patient to follow with urology for suprapubic tube. Today pt feels better, he finished his Antibiotices, still has suprapubic catheter in place and has a follow up with Dr. Carney tomorrow for removal Leg edema, right 09/22/2023 Assessment & Plan (09/22/2023 2:50 PM EDT): On exam pt has 1 + right LE pitting edema, no increase in temperature, no redness Plan: Elevation, RLE US rule out DVT Acute pain of right knee 09/22/2023 Assessment & Plan (09/22/2023 2:52 PM EDT): Pt with c/o new onset of right knee pain, in the absence of any trauma Exam suggestive of OA, although other etiologies such as gout need to be ruled out Obtain Uric Acid, X-ray right knee , Ortho eval Acetaminophen PRN pain. No narcotics necessary Nephrolithiasis 02/24/2023 Assessment & Plan (02/24/2023 9:27 AM EST): Seen in the ER with c/o flank pain CT showed: Multiple obstructing distal right ureteral calculi with associated right-sided hydronephrosis and perinephric stranding. Plan: Urology referral Acute cough 02/24/2023 Assessment & Plan (02/24/2023 10:07 AM EST): Pt with c/o dry cough x 1 week no fever, no sob , exam unremarkable Rapid Covid, rapid Flu: negative Plan: supportive measures, chest x-ray Follow up if worsening or no improvement Impacted cerumen of right ear 02/24/2023 Assessment & Plan (02/24/2023 10:09 AM EST): Seen on exam Debrox x 1 week follow up with RN for ear lavage afterwarsds Thyroid nodule 10/14/2022 Assessment & Plan (02/24/2023 9:26 AM EST): Pt c/o fulness on his neck, has a Hx of thyroid nodules, Thyroid U/S 09/10/2021 showed: A 1.6 cm in maximal diameter right thyroid lower pole nodule meets ACR biopsy criteria and is amenable to ultrasound-guided biopsy, if clinically indicated and not already performed. 2. There is an asymmetric goiter, right lobe greater than left. Pt was seen by Endocrinology 10/30/2021 He underwent FNA biopsy of this 1.7 cm RLP thyroid nodule 12/18/2021 with benign cytology. He will be due for a repeat surveillance US 12/2022. US ordered today Assessment & Plan (10/14/2022 3:13 PM EDT): Pt c/o fulness on his neck, has a Hx of thyroid nodules, Thyroid U/S 09/10/2021 showed: A 1.6 cm in maximal diameter right thyroid lower pole nodule meets ACR biopsy criteria and is amenable to ultrasound-guided biopsy, if clinically indicated and not already performed. 2. There is an asymmetric goiter, right lobe greater than left. Pt was seen by Endocrinology 10/30/2021 He underwent FNA biopsy of this 1.7 cm RLP thyroid nodule 12/18/2021 with benign cytology. He will be due for a repeat surveillance US 12/2022. Moderate persistent asthma without complication 10/14/2022 Assessment & Plan (10/14/2022 3:15 PM EDT): Pt evaluated by Dr Shipman last seen 10/01/2022, On Xolair Pulmonary nodules 10/14/2022 Assessment & Plan (10/14/2022 3:17 PM EDT): Being followed by Pulmonology seen 09/2022 S/P CABG (coronary artery bypass graft) 10/15/19 Assessment & Plan (10/14/2022 3:18 PM EDT): Under the care of Dr Fuentes last seen 09/23/2021 Preventative health care 10/14/2022 Assessment & Plan (02/24/2023 9:30 AM EST): PSA 05/22/2021 Normal 1.59 GI saw him 02/23/2022 scheduled for Colonoscopy Assessment & Plan (10/14/2022 3:20 PM EDT): PSA 05/22/2021 Normal 1.59 Diverticulosis 10/14/2022 Assessment & Plan (10/14/2022 3:27 PM EDT): Overdue for repeat Colonoscopy. Last 2 aborted due to poor prep, last one 2020 Anxiety 06/23/2022 Benign prostatic hyperplasia 06/23/2022 Assessment & Plan (09/22/2023 2:49 PM EDT): Evaluated last by Urology 02/[address] in the ER showed: Marked prostatomegaly. No hydronephrosis. Plan: Obtain PSA, Refer back to Urology. Last PSA 2021 Normal Assessment & Plan (10/14/2022 3:20 PM EDT): Will review records from Urology Chronic low back pain 06/23/2022 Coronary arteriosclerosis 06/23/2022 Assessment & Plan (02/24/2023 9:24 AM EST): Under the care of Weigh And Charge Worker at [facility] , last seen 01/29/2023 Assessment & Plan (10/14/2022 3:18 PM EDT): Under the care of Dr Fuentes , last seen 09/23/2021 Mild depression 06/23/2022 Assessment & Plan (11/19/2023 10:43 AM EDT): On Lexapro 10 mg po daily and Trazodone 100 mg po qhs Assessment & Plan (10/14/2022 3:30 PM EDT): On Lexapro 10 mg po daily and Trazodone 100 mg po qhs Mixed hyperlipidemia 06/23/2022 Assessment & Plan (10/14/2022 3:16 PM EDT): Patient with elevated lipids. Most recent lipid profile from 05/22/2021 showed Chol: 122 Trigs 86 HDL 50 LDL 55 Currently on a regimen of: Rosuvastatin 20 mg po daily and Ezetimide 10 mg ( Prescribed by Weigh And Charge Worker ) last seen 09/24/2021 . LFTS 05/22/2021 Normal For now will continue with current regimen, will repeat advised to try to adhere to a low cholesterol diet, counseled and educated about diet and exercise, Patient encouraged to come up with a personal goal for weight loss. Obstructive sleep apnea syndrome 06/23/2022 Assessment & Plan (10/14/2022 3:18 PM EDT): Uses his Cpap machine with good results Peripheral vascular disease 06/23/2022 Assessment & Plan (02/24/2023 9:31 AM EST): On Cilostazol Doing well Assessment & Plan (10/14/2022 3:19 PM EDT): On Cilostazol Tubular adenoma of colon 06/23/2022 Assessment & Plan (02/24/2023 9:25 AM EST): Previous medical records state on 10/09/2017 had a colonoscopy that was inadequate for a previous Hx of tubular adenoma. on 03/13/20 repeat colonoscopy was aborted due to poor prep 07/20/2014 He has a colonoscopy that showed diverticulosis, and colon polyps x 2, tubular adenoima and sesile serrated adenoma Dr. Hill Seen yesterday by GI 02/23/2022 scheduled for Colonoscopy Assessment & Plan (10/14/2022 3:17 PM EDT): Previous medical records state on 10/09/2017 had a colonoscopy that was inadequate for a previous Hx of tubular adenoma. on 03/13/20 repeat colonoscopy was aborted due to poor prep 07/20/2014 He has a colonoscopy that showed diverticulosis, and colon polyps x 2, tubular adenoima and sesile serrated adenoma Dr. Hill Essential hypertension 07/28/2011 Overview (06/23/2022): Joined [facility] 10/2021. Frequently misses appointments. Followed by cardiology. Hx of CABG/ ASVCD. Was switched to [facility] pharmacy with [facility] with improved adherence Current therapy: - Metoprolol Tartrate 50mg BID - Amlodipine 10mg daily - Irbesartan 150mg daily - Isosorbide MN ER 60mg daily Assessment & Plan (02/24/2023 9:23 AM EST): Patient with Hypertension currently controlled He is on a regimen of: Irbersartan 150 mg po daily, isosorbide ER 60 mg po daily, Metoprolol 50 mg po BID and Amlodipine 10 mg po daily (increased by Cardiology) He was Referred to [facility] f/u with me in 12 weeks patient advised to adhere to a low sodium diet, encouraged about medication compliance, counseled about weight loss. Assessment & Plan (10/14/2022 3:10 PM EDT): Patient with Hypertension currently uncontrolled due to non compliance He is on a regimen of: Irbersartan 150 mg po daily, isosorbide ER 60 mg po daily, Metoprolol 50 mg po BID and Amlodipine 10 mg po daily (increased by Cardiology) He was Referred to [facility], unfortunately on 2 different occasions he did not bring his medications and our pharmacist was unable to complete a full med rec and start him on med boxes, f/u with me in 12 weeks patient advised to adhere to a low sodium diet, encouraged about medication compliance, counseled about weight loss. Gastroesophageal reflux disease 07/28/2011 Class 1 obesity due to exces s calories with serious comorbidity and body mass index (BMI) of 34.0 to 34.9 in adult 07/28/2011 Assessment & Plan (10/14/2022 3:23 PM EDT): Patient has been counseled and educated about diet and exercise. Personal goal of weight loss discussedPatient has comorbidity of:Patient has comorbidity of: DM Pure hypercholesterolemia 07/28/2011 Assessment & Plan (02/24/2023 9:29 AM EST): Most recent Lipid profile from: 12/25/2022 Component Ref Range & Units 2 mo ago 1 yr ago Triglycerides <150 mg/dL 120 86 Comment: Desirable Triglyceride: ? less than 150 mg/dLBorderline High Triglyceride ??150-199 mg/dLHigh Triglyceride: ?200-499 mg/dLVery High Triglyceride: ? greater than or equal to ?5OO mg/dL Cholesterol <200 mg/dL 133 Comment: Desirable Cholesterol: ?less than 200 mg/dLBorderline High Cholesterol: ??200-239 mg/dLHigh Cholesterol: ? greater than 239 mg/dL LDL Cholesterol Calculated <100 mg/dL 69 Comment: Desirable LDL: ? less than 100 mg/dLNear Optimal/Above Optimal LDL: ??110-129 mg/dLBorderline High LDL: ? 130-159 mg/dLHigh LDL: ?160-189 mg/dLVery High LDL: ? greater than or equal to ? 190 mg/dL HDL Cholesterol >40 mg/dL 40??Low?? 50 R On Crestor 20 mg po at bedtime and Zetia 10 Tear film insufficiency 07/28/2011 Type 2 diabetes mellitus 07/28/2011 Assessment & Plan (11/19/2023 10:41 AM EDT): Pt here for a f/u, again did not bring his Glucometer He is on a regimen of: Lantus 85 units sc q pm , Trulicity 4.5 mg once a week and Novolog 16 units before meals Hgb A1c 10/02/2023: 8.9 Microalbumin 05/22/2021 13.7 Pt on an ARB (irbersartan) Foot check today is risk of: zero Pt reports compliance with Asa 81 mg po daily He did not bring his glucometer Plan: No changes until he brings glucometer Pt advised to: adhere to diabetic diet check your blood sugars regularly check your feet on a daily basis. Assessment & Plan (09/22/2023 2:53 PM EDT): Pt here for a f/u Dud not bring Glucometer He is on a regimen of: Lantus 80 units sc q pm Trulicity 4.5 mg once a week and Novolog 16 units before meals Hgb A1c ordered Microalbumin 05/22/2021 13.7 Pt on an ARB (irbersartan) Foot check today is risk of: zero Pt reports compliance with Asa 81 mg po daily He did not bring his glucometer Plan: No changes until he brings glucometer Pt advised to: adhere to diabetic diet check your blood sugars regularly check your feet on a daily basis. Assessment & Plan (02/24/2023 9:38 AM EST): Pt here for a f/u in terms of his Diabetes Glucometer shows average 198 He is on a regimen of: Lantus 80 units sc q pm Trulicity 3 mg once a week and Novolog 16 units before meals Hgb A1c today 02/24/2023 Was 9.4 from 8.7 Eye exam none recent Microalbumin 05/22/2021 13.7 Pt on an ARB (irbersartan) Foot check today is risk of: zero Pt reports compliance with Asa 81 mg po daily He did not bring his glucometer Plan: Increase Trulicity to 4.5 mg once a week Pt advised to: adhere to diabetic diet check your blood sugars regularly check your feet on a daily basis. Assessment & Plan (10/14/2022 3:34 PM EDT): Pt here for a f/u in terms of his Diabetes He is on a regimen of: Lantus 80 units sc q pm Trulicity 3 mg once a week and Novolog 16 units before meals Hgb A1c today 10/14/2022 was 8.7 Eye exam none recent Microalbumin 05/22/2021 13.7 Pt on an ARB (irbersartan) Foot check today is risk of: zero Pt reports compliance with Asa 81 mg po daily He did not bring his glucometer Plan: No changes until he brings his glcuometer Pt advised to: adhere to diabetic diet check your blood sugars regularly check your feet on a daily basis. Encounters Date Type Department Care Team Description 03/25/2024 Telephone [facility] [address] [place] [phone] Darius Eden MD Chart Prep 03/16/2024 Refill [facility] [address] [place] [address] Adriana An FNP Type 2 diabetes mellitus without complication, with long-term current use of insulin ([facility]); Type 2 diabetes mellitus with other specified complication, unspecified whether manager intermediate insulin use ([facility]) 03/16/2024 Refill [facility] [address] [place] [address] Darius Eden MD Type 2 diabetes mellitus with other specified complication, unspecified whether manager intermediate insulin use ([facility]) 03/10/2024 Refill [facility] [address] [place] [address] Darius Eden MD Mild depression 02/16/2024 Refill [facility] [address] [place] [address] Darius Eden MD Primary insomnia 02/12/2024 Telephone [facility] [address] [place] [address] Darius Eden MD [facility] 02/12/2024 Refill [facility] [address] [place] [address] Darius Eden MD Type 2 diabetes mellitus without complication, with long-term current use of insulin ([facility]) 02/11/2024 Refill [facility] [address] [place] [address] Darius Eden MD Depressive disorder 02/11/2024 Refill [facility] [address] [place] [address] Darius Eden MD Depressive disorder; Primary insomnia 02/04/2024 Telephone [facility] [address] [place] [address] Darius Eden MD Chart Prep 12/28/2023 Refill [facility] [address] [place] [address] Kanchan Landon ANP Acute pain of right knee from Last 3 Months Immunizations Name Administration Dates Next Due Influenza High-dose Quadriva lent Preservative Free 12/12/2021 Influenza Quadrivalent Adjuvanted 10/21/2019 Influenza, High Dose Seasona l, Preservative Free 11/13/2016 Influenza, IIV3, injectable 12/13/2013, 2,11/08/2009 Influenza, trivalent, adjuvanted 10/04/2018 Pneumococcal Conjugate PCV 13 04/01/2016 Pneumococcal Polysaccharide PPSV23 09/13/2013, TD (adult), 2 Lf tetanus tox oid, preservative free, adsorbed 03/26/1995 Tdap 04/01/2016 Social History Tobacco Use Types Packs/Day Years Used Date Smoking Tobacco: Never Passive Smoke Exposure: Never Smokeless Tobacco: Never Tobacco Cessation:Counseling Given: Not Answered Alcohol Use Standard Drinks/Week Comments Never 0 [...] Orientation Straight 12/09/2021 10 :14 AM EDT Last Filed Vital Signs Vital Sign Reading Time Taken Comments Blood Pressure 144/69 11/19/2023 10:17 AM EDT Pulse 64 11/19/2023 10:17 AM EDT Temperature 34.8 ??C (94.6 ??F) 11/19/2023 10:17 AM E DT Respiratory Rate 20 11/19/2023 10:17 AM EDT Oxygen Saturation 98% 11/19/2023 10:17 AM EDT Inhaled Oxygen Concentration - - Weight 88.5 kg (195 lb 3.2 oz) 11/19/2023 10:17 AM EDT Height 167.6 cm (5' 6 ) 11/19/2023 10:17 AM EDT Body Mass Index 31.51 11/19/2023 10:17 AM EDT Plan of Treatment Upcoming Encounters Date Type Department Care Team (Late st Contact Info) Description 04/12/2024 11:15 AM EST Office Visit [facility] [address] [place] [address] Darius Eden MD [address] [place], [place] [phone] Health Maintenance Due Date Last Done Comments CT Colonography 1948 FIT DNA/Cologuard 1950 FIT 1948 FOBT 1950 Sigmoidoscopy 1948 Diabetes: Foot Exam 1958 Eye Exam 1958 Alcohol/Substance Use Screening 1960 Zoster Vaccines (1 of 2) 1998 Diabetes: Urine Protein Screening 05/22/2022 05/22/2021 RSV Patients and Patients Aged 60 years or older (1 - 1-dose 75+ series) 08/20/2023 COVID-19 Vaccine (3 - season) 2023 06/10/2020, 05/13/2020 Influenza Vaccine (#1) 2023 2, 10/21/2019, 10/04/2018, Additional history exists Lipid Panel 12/26/2023 12/25/2022, 05/22/2021 Diabetes: Hemoglobin A1C 01/02/2024 024, 02/24/2023, 10/14/2022 SDOH Screening 10/15/2024 10/16/2023 Depression Screening 11/18/2024 11/19/2023, 11/19/19 Tobacco Screening 11/18/2024 11/19/2023 DTaP/Tdap/Td Vaccines (2 - Td or Tdap) 04/01/2026 04/01/2016, 03/26/1995 Colonoscopy 06/24/2028 06/25/2023 Colorectal Cancer Screening 06/24/2028 Pneumococcal Vaccine: 50+ Years Completed 04/01/2016, 09/13/2013, 10/31/1999 Hepatitis C Screening Completed 05/22/2021 HIB Vaccines Aged Out No longer eligi [...] patient's age to complete this topic Meningococcal Vaccine Aged Out No daly chhaya eligible based on patient's age to complete this topic RSV under 20 months Aged Out No longe r eligible based on patient's age to complete this topic Rotavirus Vaccines Aged Out No longer eligible based on patient's age to complete this topic Procedures Procedure Name Priority Date/Time Associated Diagnosis Comments US SCROTUM Routine 01/06/2024 1:37 PM EST POCT GLYCATED HEMOGLOBIN, TOTAL Routine 10/02/2023 2:49 PM EDT Type 2 diabetes mellitus with other specified complication, unspecified whether correction insulin use (CMS/HCC) HM COLONOSCOPY Routine 06/25/2023 LIPID PANEL WITH REFLEX TO DIRECT LDL Routine 12/25/2022 10:49 AM EST Mixed hyperlipidemia ZZZ HISTORICAL HEPATITIS C AB W/REFL TO HCV RNA, QN, PCR Routine 05/22/2021 8:46 AM EDT ALBUMIN, RANDOM URINE W/CREATININE Routine 05/22/2021 8:46 AM EDT from Last 3 Months or Most Recently Relevant to Health Maintenance Results * US Scrotum (01/06/2024 1:37 PM EST) Anatomical Region Laterality Modality Body Ultrasound 01/06/2024 1:37 PM EST Narrative 03/03/2024 12:52 PM EST ? [facility] ?[address] ?[place] [address] ? Ultrasound Report ? Signed ? Patient: Len Franks ?MR#: [id number] ?? 76 ? : 1950 ?Acct:[id number] ? Age/Sex: 73 / M ?ADM Date: 01/06/24 ? Loc: HO.US ? Attending Dr: Cristobal Carney MD ? Ordering Physician: Cristobal Carney MD ?? Date of Service: 01/06/24 ?? Procedure(s): US scrotum ?? Accession Number(s): [id number] ? cc: Cristobal Carney MD; Darius Gonzales MD ? EXAMINATION: ?? US SCROTUM ? CLINICAL INFORMATION: ?? Inflammatory disease of prostate.. ? COMPARISON: ?? Scrotal ultrasound 08/09/2023. ? TECHNIQUE: ?? A sonogram of the scrotum was performed assessing oates-scale appearance ?? and color Doppler flow. Spectral Doppler analysis of the arterial and ?? venous flow were performed in the testes bilaterally. ? 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 ? FINDINGS: ? RIGHT: Right testicle measures 3.2 x 2.2 x 2.2 cm, volume 8.3 mL. No ?? focal testicular parenchymal lesions are visualized. Spectral Doppler ?? analysis of the arterial and venous flow is normal in the right testis. ? Right epididymal head is normal in size. No right hydrocele or ?? varicocele is seen. Right epididymal Doppler flow is normal. ? LEFT: Left testicle measures 3.9 x 1.6 x 2.3 cm, volume 7.3 mL. No ?? focal testicular parenchymal lesions are visualized. Spectral Doppler ?? analysis of the arterial and venous flow is normal in the left testis. ? Left epididymal head is normal in size. There is a moderate-sized left ?? hydrocele. There is no definite varicocele. Left epididymal Doppler ?? flow is normal. There is a left epididymal appendage noted. ? US/US scrotum ?? IMPRESSION: ?? 1. Moderate-sized left hydrocele. Otherwise normal testicular ?? ultrasound. ? Electronically signed by: ??Harjeet Hahn MD ??03/03/2024 12:48 PM EST RP ? Dictated By: ?Harjeet Hahn MD ? Signed By: ?<Electronically signed by Harjeet Hahn MD in OV> ?03/03/24 1248 ? DD/ 1337 ? TD/TT: 01/06/24 1343 ? Seed [employer] Laboratory Assistant: ? Procedure Note Dondarielter, Image - 03/03/2024 [place] [id number] Ultrasound Report Signed Patient: Len FranksMR#: [id number] : 9Acct:[id number] Age/Sex: 73 / MADM Date: 01/06/24 Loc: HO.US Attending Dr: Cristobal Carney MD Ordering Physician: Cristobal Carney MD Date of Service: 01/06/24 Procedure(s): US scrotum Accession Number(s): [id number] cc: Cristobal Carney MD; Darius Gonzales MD EXAMINATION: US SCROTUM CLINICAL INFORMATION: Inflammatory disease of prostate.. COMPARISON: Scrotal ultrasound 08/09/2023. TECHNIQUE: A sonogram of the scrotum was performed assessing oates-scale appearance and color Doppler flow. Spectral Doppler analysis of the arterial and venous flow were performed in the testes bilaterally. 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 FINDINGS: RIGHT: Right testicle measures 3.2 x 2.2 x 2.2 cm, volume 8.3 mL. No focal testicular parenchymal lesions are visualized. Spectral Doppler analysis of the arterial and venous flow is normal in the right testis. Right epididymal head is normal in size. No right hydrocele or varicocele is seen. Right epididymal Doppler flow is normal. LEFT: Left testicle measures 3.9 x 1.6 x 2.3 cm, volume 7.3 mL. No focal testicular parenchymal lesions are visualized. Spectral Doppler analysis of the arterial and venous flow is normal in the left testis. Left epididymal head is normal in size. There is a moderate-sized left hydrocele. There is no definite varicocele. Left epididymal Doppler flow is normal. There is a left epididymal appendage noted. US/US scrotum IMPRESSION: 1. Moderate-sized left hydrocele. Otherwise normal testicular ultrasound. Electronically signed by: Harjeet Hahn MD 03/03/2024 12:48 PM EST Dictated By: Harjeet Hahn MD Signed By: <Electronically signed by Harjeet Hahn MD in OV> 03/03/24 1248 DD/ 1337 TD/TT: 01/06/24 1343 Seed Analysis Laboratory Assistant: [facility] External Provider IMG US PROCEDURES Final Result * (ABNORMAL) POCT HGB A1C (10/02/2023 2:49 PM EDT) Pathologist [facility] Hemoglobin A1C 9.9(A) 4.0 - 6.0 % QC Media Lot # [id number] Lot# Expiration Date [id number] Blood 10/02/2023 2:49 PM EDT Adriana An SANITARY INSPECTOR POINT OF CARE TEST ENTER/EDIT O RDERABLES Final Result * Colonoscopy (06/25/2023) Pathologist [facility] Colonoscopy Normal Normal Impressions Darius Eden MD - 06/25/2023 Tubular Adenoma Historical Provider HEALTH MAINTENANCE Final Result * (ABNORMAL) Lipid Panel with Reflex to Direct LDL (12/25/2022 10:49 AM EST) Pathologist [facility] Triglycerides 120 <150 mg/dL [facility] Comment:Desirable Triglyceri de: less than 150 mg/dLBorderline High Triglyceride 150-199 mg/dLHigh Triglyceride: 200-499 mg/dLVery High Triglyceride: greater than or equal to 5OO mg/dL Cholesterol 133 <200 mg/dL [facility] Comment:Desirable Cholestero l: less than 200 mg/dLBorderline High Cholesterol: 200-239 mg/dLHigh Cholesterol: greater than 239 mg/dL LDL Cholesterol Calculated 69 <100 mg/dL [facility] Comment:Desirable LDL: less than 100 mg/dLNear Optimal/Above Optimal LDL: 110- 129 mg/dLBorderline High LDL: 130-159 mg/dLHigh LDL: 160-189 mg/dLVery High LDL: greater than or equal to 190 mg/dL HDL Cholesterol 40(L) >40 mg/dL [facility] Comment:Desirable HDL: great er than 40 mg/dL Note: This HDL assay may give artificially low results in patients with liver disease. Blood 12/25/2022 10:4 9 AM EST 12/25/2022 1:03 PM EST us Darius Christian MD LAB BLOOD ORDERABLES Final Result [facility] [address] [place] [phone] * HEPATITIS C AB W/REFL TO HCV RNA, QN, PCR (05/22/2021 8:46 AM EDT) HEPATITIS C ANTIBODY NON-REACT TABATHA NON-REACT TABATHA [facility] INDEX 0.01 <1.00 [facility] Comment: ?? HCV antibody was non-reactive. There is no laboratory ?? evidence of HCV infection. ?? In most cases, no further action is required. However, if recent HCV exposure is suspected, a test for HCV RNA (test code 94386) is suggested. ?? For additional information please refer to http://education.meQuilibrium/faq/XQE04z3 (This link is being provided for informational/ educational purposes only.) ?? 05/22/2021 8:46 AM EDT us Darius Christian MD HISTORICAL/NON ORDERA BLE LABS Final Result Performing Organization Address [facility] Co de Phone Number [facility] [address] * (ABNORMAL) ALBUMIN, RANDOM URINE W/CREATININE (05/22/2021 8:46 AM EDT) Microalbumin Urine 13.7 See Note: mg/dL [facility] Comment: Reference Range: ?? Reference Range Not established Microalb/Creat Ratio 112(H) <30 mcg/mg creat [facility] Comment: ?? The ADA defines abnormalities in albumin excretion as follows: ?? Albuminuria Category ?Result (mcg/mg creatinine) ?? Normal to Mildly increased ?? <30 Moderately increased ? 30-299 ?? Severely increased ? > OR = 300 ?? The ADA recommends that at least two of three specimens collected within a 3-6 month period be abnormal before considering a patient to be within a diagnostic category. Creatinine, Urine 122 20 - 320 mg/dL [facility] 05/22/2021 8:46 AM EDT Darius Christian MD LAB URINE ORDERABLES Final Result Performing Organization Address [facility] de Phone Number [facility] [address] from Last 3 Months or Most Recently Relevant to Health Maintenance Insurance MEDICARE [facility] STANDARD Care Teams Archaeology Professor Relationship Specialty Start Date End Date Darius Eden MD [address] [place] [address] PCP - General Internal Medicine 05/21/21 Tip Sims, Carlos [address] [place] [phone] Pharmacist Internal Medicine 03/20/22 [facility] 03/20/22 [facility] 12/31/23
--- OUTSIDE RECORDS SUMMARY | 2024-03-29 11:18 | XMS_ITS | Encounter Summary ---
Author Organization [employer] Address [address] [facility] 7t [place] [address] Care Team Providers Care Taping Supervisor Name Role Phone Darius Eden MD Primary Care Provide r Tip Sims PharmD Unavailable [phone] Reason for Visit * Reason Comments Med Refill Encounter Details Date Type Department Care Team ([facility] st Contact Info) Description 12/05/2022 Refill [facility] MED & PEDS [address] [place] [phone] Darius Eden MD [address] [place], [place] [phone] Heartburn Social History Tobacco Use Types Packs/Day Years [...] Description 04/12/2024 11:15 AM EST Office Visit [facility] MEDICINE [address] [place] [address] Darius Eden MD [address] [place] [address] documented as of this encounter Visit Diagnoses Diagnosis Heartburn documented in this encounter Additional Health Concerns Assessment Noted Time PHQ-9 Depression Total Score: 6 10/15/19 23 3:08 PM EDT documented as of this encounter Care Teams Taping Supervisor Relationship Specialty Start Date End Date Darius Eden MD [address] [place] [phone] PCP - General Internal Medicine 05/21/21 Tip Sims, Carlos [address] [place] [phone] Pharmacist Internal Medicine 03/20/22 [facility] Pharmacist Pharmacy 03/20/22 [facility] Care 12/31/23 documented as of this encounter
== END 2024-03-29 12:15 | disposition home or self-care (01) ==
PROVIDERS: PCP Internal Medicine; Visit Provider Urology
DX: Z13.9 Encounter for screening, unspecified (principal)

== ENCOUNTER → 2024-03-29 10:18 | Outpatient (BNVA) | payer MEDICARE, MEDICAID, SELFPAY | PROVIDERS: PCP Internal Medicine; Visit Provider Urology | DX: N40.1 Benign prostatic hyperplasia with lower urinary tract symptoms (principal); R33.8 Other retention of urine; N32.89 Other specified disorders of bladder | CPT/HCPCS: 51798; 81003; 99212 ==

== ENCOUNTER 2024-06-06 09:45 | Outpatient (REF) | payer MEDICARE, MEDICAID, SELFPAY ==
--- OUTSIDE RECORDS SUMMARY | 2024-06-06 11:04 | XMS_ITS | Encounter Summary ---
Author Organization [employer] Address [address] [facility] 7t [place] [address] Care Team Providers Care Honeycomb Decapper Name Role Phone Darius Eden MD Primary Care Provide r Tip Sims PharmD Unavailable [phone] Reason for Visit * Reason Onset Date Comments Med Refill 10/26/2023 Encounter Details Date Type Department Care Team (Late st Contact Info) Description 10/26/2023 Telephone [facility] MEDICINE [address] [place], [place] [phone] Darius Eden MD 230 [place], [place] [phone] Med Refill Social History Tobacco Use Types [...] 500 MG tablet To be sent to: [facility] - [place], [place] - [address] [facility] documented in this encounter Plan of Treatment Upcoming Encounters Date Type Department Care Team (Late st Contact Info) Description 07/12/2024 10:30 AM EDT Office Visit [facility] OPTOMETRY [address] [place] [address] Basia Renteria, TAYLOR [address] [place] [address] 07/14/2024 11:30 AM EDT Office Visit [facility] MEDICINE [address] [place] [address] Darius Eden MD [address] [place] [address] documented as of this encounter Visit Diagnoses Not on filedocumented in this encounter Additional Health Concerns Assessment Noted Time PHQ-9 Depression Total Score: 6 10/15/19 23 3:08 PM EDT documented as of this encounter Care Teams Honeycomb Decapper Relationship Specialty Start Date End Date Darius Eden MD [address] [place], [place] [phone] PCP - General Internal Medicine 05/21/21 Tip Sims, DevoraD [address] [place], [place] [phone] Pharmacist Internal Medicine 03/20/22 [facility] Pharmacist [facility] 03/20/22 [facility] 12/31/23 documented as of this encounter
--- OUTSIDE RECORDS SUMMARY | 2024-06-06 11:04 | XMS_ITS | Clinical Summary ---
Author Organization [facility] Address [address] [place] [address] Care Team Providers Care Bicycle Racer Name Role Phone Lauren Whyte Primary Care Provider + Surgical History Surgery Date Site/Laterality Comments CARPAL TUNNEL RELEASE PROCEDURE: DC NEUROPLASTY &/TRANSPOS MEDIAN NRV CARPAL TUNNE COLONOSCOPY [...] 03/23/2012 DX:Anxiety Depression 03/23/2012 DX:Depression Diabetic cataract ([facility] V 24, [facility] V28) 09/07/2014 DX:Diabetic cataract ([facility]) GERD (gastroesophageal reflux disease) 01/12/2012 DX:GERD (gastroesophageal reflux disease) Type II or unspecified type diabetes mellitus with ophthalmic manifestations, 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 Thornton, neurologist at [facility] night study 02/06/13: AHI 102.4, O2 sat 86%. Excellent [...] mellitus type 2 wit h neurological manifestations (CMS/HCC V24, CMS/HCC V28) 09/14/2014 DX:Diabetes mellitus type 2 with neurological manifestations (HCC) Microalbuminuria 09/14/2014 DX:Microalbumin uria 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 V24, CMS/HCC V28) 09/14/2014 DX:Type 2 diabetes mellitus with renal [...] diabetes mellitus wit h peripheral vascular disease (CMS/HCC V24, CMS/HCC V28) 06/26/2013 DX:Type 2 diabetes mellitus with peripheral vascular disease (HCC) Arthritis 01/13/2017 DX:Arthritis; CO MMENT: Elbows, knees Asthma 03/08/2012 DX:Asthma Atherosclerosis of [place] co ronary artery of [place] heart with angina pectoris (CMS/HCC V24) 06/12/2015 DX:Atherosclerosis [place] coronary artery of [place] heart with angina pectoris (HCC) Balanitis 05/25/2012 [...] Annual BMP Blood Test 01/24/2022 RSV Immunization Adult Patients (1 - 1-dose 75+ series) 08/20/2023 COVID-19 Vaccine ( season) 2023 06/10/2020, 05/13/2020 Depression Screening 10/15/2023 10/14/2022 Influenza Vaccine (Season Ended) 2024 10/21/2019, 10/21/2019, 10/04/2018, Additional history exists DTaP,Tdap,and Td Vaccines (3 - Td or [...] age to complete this topic Meningococcal B Vaccine Aged Out No l onger eligible based on patient's age to complete this topic RSV Immunization Patients Under 20 months Aged Out No longer eligible based on patient's age to complete this topic Varicella Vaccines Aged Out No longer eligible based on patient's age to complete this topic Care Teams Bicycle Racer Relationship Specialty Start Date End Date Lauren Whyte PA PCP - General Internal Medicine 01/24/21
--- OUTSIDE RECORDS SUMMARY | 2024-06-06 11:04 | XMS_ITS | Encounter Summary ---
Author Organization [employer] Address [address] [facility] 7t [place] [address] Care Team Providers Care Health Sciences Program Coordinator Name Role Phone Darius Eden MD Primary Care Provide r Tip Sims PharmD Unavailable [phone] Reason for Visit * Reason Onset Date Comments Call Back Request 01/07/2023 Encounter Details Date Type Department Care Team ([facility] [place] st Contact Info) Description 01/07/2023 Telephone [facility] MEDICINE [address] [place], [place] [phone] Darius Eden MD [address] [place], [place] [phone] Call Back Request Social History Tobacco Use [...] Description 07/12/2024 10:30 AM EDT Office Visit [facility] OPTOMETRY [address] [place] [address] Tarka, Basia, OD [address] [place] [address] 07/14/2024 11:30 AM EDT Office Visit [facility] MEDICINE [address] [place] [address] Darius Eden MD [address] [place] [phone] documented as of this encounter Visit Diagnoses Not on filedocumented in this encounter Additional Health Concerns Assessment Noted Time PHQ-9 Depression Total Score: 6 10/15/19 23 3:08 PM EDT documented as of this encounter Care Teams Health Sciences Program Coordinator Relationship Specialty Start Date End Date Darius Eden MD [address] [place] [phone] PCP - General Internal Medicine 05/21/21 Tip Sims, Carlos [address] [place] [phone] Pharmacist Internal Medicine 03/20/22 [facility] Pharmacist Pharmacy 03/20/22 [facility] 12/31/23 documented as of this encounter
--- OUTSIDE RECORDS SUMMARY | 2024-06-06 11:04 | XMS_ITS | Encounter Summary ---
Author Organization [employer] Address [address] [facility] 7t [place] [address] Care Team Providers Care Tender Labor Name Role Phone Darius Eden MD Primary Care Provide r Tip Sims PharmD Unavailable [phone] Reason for Visit * Reason Comments Med Refill Encounter Details Date Type Department Care Team ([facility] st Contact Info) Description 03/09/2023 Refill [facility] MEDICINE [address] [place], [place] [phone] Darius Eden MD [address] [place], [place] [phone] Acute cough Social History Tobacco Use Types [...] Description 07/12/2024 10:30 AM EDT Office Visit [facility] OPTOMETRY [address] [place] [address] TarkaBasia, OD [address] [place] [address] 07/14/2024 11:30 AM EDT Office Visit [facility] MEDICINE [address] [place] [address] Darius Eden MD [address] [place] [phone] documented as of this encounter Visit Diagnoses Diagnosis Acute cough documented in this encounter Additional Health Concerns Assessment Noted Time PHQ-9 Depression Total Score: 6 10/15/19 23 3:08 PM EDT documented as of this encounter Care Teams Tender Labor Relationship Specialty Start Date End Date Darius Eden MD [address] [place] [phone] PCP - General Internal Medicine 05/21/21 Tip Sims, Carlos [address] [place] [phone] Pharmacist Internal Medicine 03/20/22 [facility] Pharmacist Pharmacy 03/20/22 [facility] 12/31/23 documented as of this encounter
--- OUTSIDE RECORDS SUMMARY | 2024-06-06 11:04 | XMS_ITS | Encounter Summary ---
Author Organization [employer] Address [address] [facility] 7t [place] [address] Care Team Providers Care Mailhouse Operator Name Role Phone Darius Eden MD Primary Care Provide r Tip Sims PharmD Unavailable [phone] Reason for Visit * Reason Comments Med Refill Encounter Details Date Type Department Care Team (Late st Contact Info) Description 12/05/2022 Refill [facility] MED & PEDS [address] [place], [place] [phone] Darius Eden MD [address] [place], [place] [phone] Heartburn Social History Tobacco Use Types Packs/Day [...] Description 07/12/2024 10:30 AM EDT Office Visit [facility] OPTOMETRY [address] [place] [address] TarkaBasia, OD [address] [place] [address] 07/14/2024 11:30 AM EDT Office Visit [facility] MEDICINE [address] [place] [address] Darius Eden MD [address] [place] [address] documented as of this encounter Visit Diagnoses Diagnosis Heartburn documented in this encounter Additional Health Concerns Assessment Noted Time PHQ-9 Depression Total Score: 6 10/15/19 23 3:08 PM EDT documented as of this encounter Care Teams Mailhouse Operator Relationship Specialty Start Date End Date Darius Eden MD [address] [place] [phone] PCP - General Internal Medicine 05/21/21 Tip Sims, Carlos [address] [place] [phone] Pharmacist Internal Medicine 03/20/22 [facility] Pharmacist Pharm[facility] 03/20/22 [facility] 11/21/24 documented as of this encounter
--- OUTSIDE RECORDS SUMMARY | 2024-06-06 11:04 | XMS_ITS | Encounter Summary ---
Author Organization [employer] Address [address] [facility] 7t [place] [address] Care Team Providers Care Waistline Joiner Name Role Phone Darius Eden MD Primary Care Provide r Tip Smis PharmD Unavailable [phone] Reason for Visit * Reason Comments Med Refill Encounter Details Date Type Department Care Team ([facility] st Contact Info) Description 01/19/2023 Refill [facility] MEDICINE [address] [place], [place] [phone] Darius Eden MD [address] [place], [place] [phone] Mild depression Social History Tobacco Use Types [...] Description 07/12/2024 10:30 AM EDT Office Visit [facility] OPTOMETRY [address] [place] [address] TarkaBasia, OD [address] [place] [address] 07/14/2024 11:30 AM EDT Office Visit [facility] MEDICINE [address] [place] [address] Darius Eden MD [address] [place] [address] documented as of this encounter Visit Diagnoses Diagnosis Mild depression Depressive disorder, not elsewhere classified documented in this encounter Additional Health Concerns Assessment Noted Time PHQ-9 Depression Total Score: 6 10/15/19 23 3:08 PM EDT documented as of this encounter Care Teams Waistline Joiner Relationship Specialty Start Date End Date Darius Eden MD [address] [place] [address] PCP - General Internal Medicine 05/21/21 Tip Sims, DevoraD [address] [place] [phone] Pharmacist Internal Medicine 03/20/22 [facility] Pharmacist Pharmacy 03/20/22 [facility] 12/31/23 documented as of this encounter
--- OUTSIDE RECORDS SUMMARY | 2024-06-06 11:04 | XMS_ITS | Clinical Summary ---
Author Organization [employer] Address [address] [place] [address] 7[address] [place] [address] Care Team Providers Care Workforce Consultant Name Role Phone Darius Eden MD Primary Care Provide r Tip Sims PharmD Unavailable [phone] Allergies No known active allergies Medications Breo [...] 81 mg by mouth in the morning. 022 Active amLODIPine (Norvasc) 10 MG tablet Take 10 mg by mouth in the morning. Active omeprazole (PriLOSEC) [address] capsule [...] whether [place] [facility] [place] use ([facility]) Take 1 tablet by mouth Once per day. 30 tablet 11 Active insulin pen needle (Easy Touch Pen Victoria) 31G X 8 mm misc USE DIRECTED FOUR TIMES DAILY 100 each Active Acetaminophen Extra Strength 500 MG tabletIndicati ons:Acute pain of right knee TAKE 2 TABLETS BY MOUTH EVERY 8 HOURS NEEDED FOR PAIN 60 tablet Active escitalopram (Lexapro) 10 MG tabletIndicati ons:Depressive disorder TAKE 1 TABLET BY MOUTH EVERY EVENING 30 tablet 3 Active melatonin 3 MG tabletIndicati ons:Mild depression TAKE 1 TABLET BY MOUTH AT BEDTIME 30 tablet 3 Active Dulaglutide 4.5 MG/0.5ML solution auto-injectorI ndications:Typ e 2 diabetes mellitus with other specified complication, unspecified whether [place] [facility] insulin use ([facility]) Inject 4.5 mg under the skin 1 (one) time per week. 2 mL 3 025 Active albuterol 108 (90 Base) MCG/ACT inhaler INHALE 2 PUFFS BY MOUTH EVERY 4 TO 6 HOURS NEEDED 18 g 2 025 Active insulin glargine (Basaglar KwikPen) 100 UNIT/ML pen Inject 80 Units under the skin at bedtime. 3 mL 12 025 2025 Active Blood Glucose Monitoring Suppl (Missionly Verio Flex System) w/Device kitIndications :Type 2 diabetes mellitus without complication, unspecified whether [place] [facility] insulin use ([facility]) TEST BLOOD SUGAR EVERY DAY 1 kit 025 Active Lancets (Missionly Delica Plus [id number]) miscIndication s:Type 2 diabetes mellitus without complication, unspecified whether [place] [facility] insulin use ([facility]) TEST BLOOD SUGAR THREE TIMES DAILY 100 each 1 025 Active glucose blood (MediamindTouch Verio) test stripIndicatio ns:Type 2 diabetes mellitus without complication, unspecified whether long term care social worker insulin use ([facility]) TEST BLOOD SUGAR THREE TIMES DAILY 100 strip 1 025 Active insulin lispro (HumaLOG KWIKPEN) 100 UNIT/ML injectionIndic ations:Type 2 diabetes mellitus without complication, with long-term current use of insulin ([facility]) INJECT 16 UNITS SUBCUTANEOUSLY PER SLIDING SCALE BEFORE MEALS DIRECTED 15 mL 2 025 Active zolpidem (Ambien) 10 MG tabletIndicati ons:Primary insomnia Take 1 tablet (10 mg) by mouth if needed at bedtime for sleep. 30 tablet 025 2024 Discontinued(I neffective) insulin lispro (HumaLOG KWIKPEN) 100 UNIT/ML injectionIndic ations:Type 2 diabetes mellitus without complication, with long-term current use of insulin ([facility]) INJECT 16 UNITS SUBCUTANEOUSLY PER SLIDING SCALE BEFORE MEALS DIRECTED 15 mL 025 2024 Discontinued Active Problems Problem Noted Date Diagnosed Date Osteoarthritis of knees, bilateral 06/03/2024 Multinodular thyroid 06/03/2024 Hydronephrosis 06/03/2024 Environmental allergies 06/03/2024 Insomnia 04/12/2024 Assessment & Plan (04/12/2024 11:40 AM EST): Pt not improving with Trazodone DC Trazodone, Start Ambien 10 mg po daily Prostatic abscess 11/19/2023 Assessment & Plan (11/19/2023 [...] hydronephrosis and perinephric stranding. Plan: Urology referral Thyroid nodule 10/14/2022 Assessment & Plan (02/24/2023 [...] asthma without complication 10/14/2022 Assessment & Plan (04/12/2024 11:27 AM EST): Pt evaluated by Dr Shipman last seen 10/01/2022, On Xolair Assessment & Plan (10/14/2022 3:15 PM EDT): Pt evaluated by Dr Shipman last seen 10/01/2022, On Xolair Pulmonary nodules 10/14/2022 Assessment & Plan (10/14/2022 3:17 PM EDT): Being followed by Pulmonology seen 09/2022 S/P CABG (coronary artery bypass graft) 10/15/19 Assessment & Plan (04/12/2024 11:24 AM EST): Under the care of Dr Fuentes last seen 01/13/2024 Assessment & Plan (10/14/2022 3:18 PM EDT): Under the care of Dr Fuentes last seen 09/23/2021 Preventative health care 10/14/2022 Assessment & Plan (04/12/2024 11:30 AM EST): PSA 05/22/2021 Normal 1.59 Colonoscopy 06/25/[address] Domínguez recommended repeat 1-3 years given polyp burden Assessment & Plan (02/24/2023 9:30 AM EST): PSA 05/22/2021 Normal 1.59 GI saw him 02/23/2022 scheduled for Colonoscopy Assessment & Plan (10/14/2022 3:20 PM EDT): PSA 05/22/2021 Normal 1.59 Diverticulosis 10/14/2022 Assessment & Plan (10/14/2022 3:27 PM EDT): Overdue for repeat Colonoscopy. Last 2 aborted due to poor prep, last one 2020 Anxiety 06/23/2022 Benign prostatic hyperplasia 06/23/2022 Assessment & Plan (04/12/2024 11:25 AM EST): Under the care of Urology s/p GreenLight Laser Enucleation of the prostate 12/14/2023 Last seen by Urology 01/19/2024 Assessment & Plan (09/22/2023 2:49 PM EDT): Evaluated last by Urology 02/[address] in the ER showed: Marked prostatomegaly. No hydronephrosis. Plan: Obtain PSA, Refer back to Urology. Last PSA 2021 Normal Assessment & Plan (10/14/2022 3:20 PM EDT): Will review records from Urology Chronic low back pain 06/23/2022 Coronary arteriosclerosis 06/23/2022 Assessment & Plan (04/12/2024 11:24 AM EST): Under the care of Director Of Orthopedics at [facility] , last seen 01/13/2024 Assessment & Plan (02/24/2023 9:24 AM EST): Under the care of Director Of Orthopedics at [facility] , last seen 01/29/2023 Assessment & Plan (10/14/2022 3:18 PM EDT): Under the care of Dr Fuentes , last seen 09/23/2021 Mixed hyperlipidemia 06/23/2022 Assessment & Plan (10/14/2022 3:16 PM EDT): Patient with elevated lipids. Most recent lipid profile from 05/22/2021 showed Chol: 122 Trigs 86 HDL 50 LDL 55 Currently on a regimen of: Rosuvastatin 20 mg po daily and Ezetimide 10 mg ( Prescribed by Director Of Orthopedics ) last seen 09/24/2021 . LFTS 05/22/2021 [...] Peripheral vascular disease 06/23/2022 Assessment & Plan (04/12/2024 11:28 AM EST): On Cilostazol Doing well Assessment & Plan (02/24/2023 9:31 AM EST): [...] adenoima and sesile serrated adenoma Dr. Hill Bilateral primary osteoarthritis of knee 020 Chronic obstructive pulmonary disease, unspecifi ed 08/22/2019 Major depressive disorder, single episode, unspe cified 08/22/2019 Restless legs syndrome 02/09/2019 Primary osteoarthritis, right elbow 02/09/2019 Chronic kidney disease, unspecified 02/09/2019 Essential hypertension 07/28/2011 Overview (06/23/2022): Joined [facility] 10/2021. Frequently misses appointments. Followed by cardiology. Hx of CABG/ ASVCD. Was switched to [facility] pharmacy with medboxes with improved adherence [...] comorbidity and body mass index (BMI) of 33.0 to 33.9 in adult 07/28/2011 Assessment & Plan (04/12/2024 11:27 AM EST): Patient has been counseled and educated about diet and exercise. Personal goal of weight loss discussedPatient has comorbidity of:Patient has comorbidity of: DM Dietary Recommendations: Fruits, vegetables, whole grains, protein foods, and fat-free or low-fat dairy products are healthy choices. Eat different types of protein foods in your diet. This can include seafood, lean meats, poultry, beans, peas, lentils, nuts, seeds, soy products, and eggs. Limit foods and beverages higher in added sugars, saturated fat, and sodium. Exercise Recommendations: At least 150 minutes of moderate-intensity physical activity per week, or an equivalent combination of moderate- and vigorous-intensity activity Assessment & Plan (10/14/2022 3:23 PM EDT): [...] film insufficiency 07/28/2011 Type 2 diabetes mellitus wit h circulatory disorder, with long-term current use of insulin 07/28/2011 Assessment & Plan (04/12/2024 11:34 AM EST): Pt here for a f/u, again did not bring his Glucometer He is on a regimen of: Basaglar 80 units sc q pm , Trulicity 4.5 mg once a week and Novolog 16 units before meals Hgb A1c 04/12/2024: 7.1 from 8.9 Microalbumin 05/22/2021 13.7 Pt on an ARB (irbersartan) Foot check today is risk of: zero Pt reports compliance with Asa 81 mg po daily He did not bring his glucometer Plan: No changes until he brings glucometer Pt advised to: adhere to diabetic diet check your blood sugars regularly check your feet on a daily basis. Assessment & Plan (11/19/2023 10:41 AM EDT): [...] check your feet on a daily basis. Resolved Problems Problem Noted Date Diagnosed Date Resolved Date Severe persistent asthma 06/03/2024 Asthma 06/03/2024 06/03/2024 Hospital discharge follow-up 11/19/2023 06/03/2024 Assessment & Plan (11/19/2023 10:42 AM EDT): Patient here for a HDF Admitted to [facility] for prostate and rectal pain. PMH significant [...] up with Dr. Carney tomorrow for removal Acute cough 02/24/2023 06/03/2024 Assessment & Plan (02/24/2023 10:07 AM EST): Pt with c/o dry cough x 1 week no fever, no sob , exam unremarkable Rapid Covid, rapid Flu: negative Plan: supportive measures, chest x-ray Follow up if worsening or no improvement Impacted cerumen of right ear 02/24/2023 06/03/2024 Assessment & Plan (02/24/2023 10:09 AM EST): Seen on exam Debrox x 1 week follow up with RN for ear lavage afterwarsds Mild depression 06/23/2022 06/03/2024 Assessment & Plan (11/19/2023 10:43 AM EDT): On Lexapro 10 mg po daily and Trazodone 100 mg po qhs Assessment & Plan (10/14/2022 3:30 PM EDT): On Lexapro 10 mg po daily and Trazodone 100 mg po qhs Anxiety disorder 08/22/2019 06/03/2024 Gastro-esophageal reflux dis ease without esophagitis 08/22/2019 06/03/2024 Athscl heart disease of siobhan ve coronary artery w/o ang pctrs 02/09/2019 06/03/2024 Benign prostatic hyperplasia without lower urinary tract symptoms 02/09/2019 06/03/2024 Hyperlipidemia, unspecified 02/09/2019 06/03/2024 Moderate persistent asthma, uncomplicated 02/09/2019 06/03/2024 Nontoxic goiter, unspecified 02/09/2019 06/03/2024 Nontoxic single thyroid nodule 02/09/2019 06/03/2024 Obstructive sleep apnea (adult) (pediatric) 02/09/2019 06/03/2024 Encounters Date Type Department Care Team Description 06/03/2024 2:15 PM EDT Office Visit [facility] [address] [place] [address] Avery Ceballos, EMILEE Type 2 diabetes mellitus with hyperglycemia, with long-term current use of insulin (CMS/HCC) (Primary Dx); Routine eye exam; Healthcare maintenance; Other insomnia; Impacted cerumen of right ear 06/03/2024 Travel 05/27/2024 Telephone [facility] [address] [place] [address] Darius Eden MD Durable Medical Equipment 05/25/2024 Refill [facility] [address] [place] [address] Darius Eden MD Type 2 diabetes mellitus without complication, with long-term current use of insulin (CMS/HCC) 05/24/2024 Patient Outreach [facility] [address] [place] [address] Darius Eden MD Pre-visit Planning (SDOH unable to reach LVM) 05/19/2024 Telephone [facility] [address] [place] [address] Darius Eden MD Chart Prep 05/11/2024 Patient Outreach [facility] [address] [place], [place] [phone] Darius Eden MD Pre-visit Planning (SDOH unable to reach, no voicemail.) 05/10/2024 9:40 AM EDT Office Visit [facility] OPTOMETRY [address] [place] [address] Sg, Lorie, OD Normal eye exam (Primary Dx) 05/10/2024 Telephone [facility] [address] [place] [address] Regi Tracy MA Chart Prep 05/10/2024 Travel 04/21/2024 Refill [facility] [address] [place] [address] Darius Eden MD Type 2 diabetes mellitus without complication, with long-term current use of insulin (CMS/HCC) 04/12/2024 11:15 AM EST Office Visit [facility] [address] [place] [address] Darius Eden MD Type 2 diabetes mellitus with hyperglycemia, with long-term current use of insulin ([facility]) (Primary Dx); Benign prostatic hyperplasia with lower urinary tract symptoms, symptom details unspecified; Coronary arteriosclerosis; S/P CABG (coronary artery bypass graft); Class 1 obesity due to excess calories with serious comorbidity and body mass index (BMI) of 33.0 to 33.9 in adult; Dietary counseling; Exercise counseling; Moderate persistent asthma without complication; Peripheral vascular disease (CMS/HCC); Type 2 diabetes mellitus with diabetic peripheral angiopathy without gangrene, with long-term current use of insulin (CMS/[facility]); Preventative health care; Primary insomnia; Encounter for immunization 04/12/2024 Travel 04/11/2024 Telephone [facility] [address] [facility] [place] [address] Demetrice Coronado RN Paperwork/Forms 04/08/2024 Refill [facility] [address] [place] [address] Darius Eden MD Type 2 diabetes mellitus without complication, unspecified whether long term care social worker insulin use (CMS/HCC) 04/05/2024 Refill [facility] [address] [facility] [place] [address] Demetrice Coronado RN 04/05/2024 Refill [facility] [address] [place] [address] Darius Eden MD 03/25/2024 Telephone [facility] [address] [place] [address] Darius Eden MD Chart Prep 03/16/2024 Refill [facility] [address] [place] [address] Adriana An FNP Type 2 diabetes mellitus without complication, with long-term current use of insulin (CMS/HCC); Type 2 diabetes mellitus with other specified complication, unspecified whether [place] use (CMS/HCC) 03/16/2024 Refill [facility] [address] [place] [address] Darius Eden MD Type 2 diabetes mellitus with other specified complication, unspecified whether long term care social worker insulin use ([facility]) 03/10/2024 Refill [facility] [address] [place] [address] Darius Eden MD Mild depression from Last 3 Months Immunizations Name Administration Dates Next Due Influenza High-dose Quadriva lent Preservative Free 12/12/2021 Influenza Quadrivalent Adjuvanted 10/21/2019 Influenza, High Dose Seasona l, Preservative Free 11/13/2016 Influenza, IIV3, injectable 12/13/2013, 2,11/08/2009 Influenza, seasonal, injecta ble, preservative free 04/12/2024 Influenza, trivalent, adjuvanted 10/04/2018 Pneumococcal Conjugate PCV [...] Sign Reading Time Taken Comments Blood Pressure 128/78 06/03/2024 2:01 PM EDT Pulse 73 06/03/2024 2:01 PM EDT Temperature 36.6 ??C (97.8 ??F) 06/03/2024 2:01 PM ED T Respiratory Rate 16 06/03/2024 2:01 PM EDT Oxygen Saturation 96% 06/03/2024 2:01 PM EDT Inhaled Oxygen Concentration - - Weight 91.3 kg (201 lb 3.2 oz) 06/03/2024 2:01 P M EDT Height 167.6 cm (5' 6 ) 04/12/2024 10:43 AM EST Body Mass Index 32.47 04/12/2024 10:43 AM EST Plan of Treatment Upcoming Encounters Date Type Department Care Team (Late st Contact Info) Description 07/12/2024 10:30 AM EDT Office Visit [facility] OPT[facility] [address] [place] [address] Basia Renteria, TAYLOR [address] [place] [address] 07/14/2024 11:30 AM EDT Office Visit [facility] [address] [place] [address] Darius Eden MD [address] [place] [address] Health Maintenance Due Date Last Done Comments CT Colonography 1948 FIT DNA/Cologuard 1948 FIT 1948 FOBT 1948 Sigmoidoscopy 1948 Eye Exam 1958 Zoster Vaccines (1 of 2) 1998 Diabetes: Urine Protein Screening 05/22/2022 05/22/2021 RSV Patients and Patients Aged 60 years or older (1 - 1-dose 75+ series) 08/20/2023 COVID-19 Vaccine (3 - season) 2023 06/10/2020, 05/13/2020 Lipid Panel 12/26/2023 12/25/2022, 05/22/2021 SDOH Screening 10/15/2024 10/16/2023 Depression Screening 11/18/2024 11/19/2023, 11/19/19 Diabetes: Hemoglobin A1C 12/03/2024 025, 04/12/2024, 10/02/2023, Additional history exists Alcohol/Substance Use Screening 04/12/2025 04/12/2024 Tobacco Screening 04/12/2025 04/12/2024 Diabetes: Foot Exam 06/03/2025 06/03/2024, 06/03/2024, 06/03/2024, Additional history exists DTaP/Tdap/Td Vaccines (2 - Td or Tdap) 04/01/2026 04/01/2016, 03/26/1995 Colonoscopy 06/24/2028 06/25/2023 Colorectal Cancer Screening 06/24/2028 Pneumococcal Vaccine: 50+ Years Completed 04/01/2016, 09/13/2013, 10/31/1999 Hepatitis C Screening Completed 05/22/2021 Influenza Vaccine Completed 04/12/2024, , 12/12/2021, Additional history exists HIB Vaccines Aged Out No longer eligi [...] Procedure Name Priority Date/Time Associated Diagnosis Comments POCT GLYCATED HEMOGLOBIN, TOTAL Routine 06/03/2024 2:12 PM EDT Type 2 diabetes mellitus with hyperglycemia, with long-term current use of insulin ([facility]) POCT GLUCOSE Routine 06/03/2024 2:10 PM EDT Type 2 diabetes mellitus with hyperglycemia, with long-term current use of insulin ([facility]) POCT GLYCATED HEMOGLOBIN, TOTAL Routine 04/12/2024 10:57 AM EST Type 2 diabetes mellitus with hyperglycemia, with long-term current use of insulin ([facility]) POCT GLUCOSE Routine 04/12/2024 10:52 AM EST Type 2 diabetes mellitus with hyperglycemia, with long-term current use of insulin ([facility]) HM COLONOSCOPY Routine 06/25/2023 LIPID PANEL WITH REFLEX TO DIRECT LDL Routine 12/25/2022 10:49 AM EST Mixed hyperlipidemia ZZZ HISTORICAL HEPATITIS C AB W/REFL TO HCV RNA, QN, PCR Routine 05/22/2021 8:46 AM EDT ALBUMIN, RANDOM URINE W/CREATININE Routine 05/22/2021 8:46 AM EDT from Last 3 Months or Most Recently Relevant to Health Maintenance Results * (ABNORMAL) POCT HGB A1C (06/03/2024 2:12 PM EDT) Only the most recent of2 resultswithin the time period is included. Hemoglobin A1C 6.2(A) 4.0 - 6.0 % QC Media Lot # [id number] Lot# Expiration Date Blood 06/03/2024 2:12 PM EDT [facility] POINT OF CARE TEST ENTER/ EDIT ORDERABLES Final Result * POCT Glucose (06/03/2024 2:10 PM EDT) Only the most recent of2 resultswithin the time period is included. Glucose Blood, POC 158 60 - 200 mg/dL QC Media Lot # [id number] Lot# Expiration Date Blood Capillary blood specimen / Unknown 06/03/2024 2:10 PM EDT [facility] POINT OF CARE TEST ENTER/ EDIT ORDERABLES Final Result * Colonoscopy (06/25/2023) Colonoscopy Normal Normal Impressions Darius Eden MD - 06/25/2023 Tubular Aden[facility] Provider HEALTH MAINTENANCE Final Result * (ABNORMAL) Lipid Panel with Reflex to Direct LDL (12/25/2022 10:49 AM EST) Triglycerides 120 <150 mg/dL [facility] Comment:Desirable Triglyceri de: less than 150 mg/dLBorderline High Triglyceride 150-199 mg/dLHigh Triglyceride: 200-499 mg/dLVery High Triglyceride: greater than or equal to 5OO mg/dL Cholesterol 133 <200 mg/dL [facility] Comment:Desirable Cholestero l: less than 200 mg/dLBorderline High Cholesterol: 200-239 mg/dLHigh Cholesterol: greater than 239 mg/dL LDL Cholesterol Calculated 69 <100 mg/dL [facility] Comment:Desirable LDL: less than 100 mg/dLNear Optimal/Above Optimal LDL: 110- 129 mg/dLBorderline High LDL: 130-159 mg/dLHigh LDL: 160-189 mg/dLVery High LDL: greater than or equal to 190 mg/dL HDL Cholesterol 40(L) >40 mg/dL [facility] Comment:Desirable HDL: great er than 40 mg/dL Note: This HDL assay may give artificially low results in patients with liver disease. Blood 12/25/2022 10:4 9 AM EST 12/25/2022 1:03 PM EST Darius Christian MD LAB BLOOD ORDERABLES Final Result [facility] [address] [place] [address] [phone] * HEPATITIS C AB W/REFL TO HCV RNA, QN, PCR (05/22/2021 8:46 AM EDT) HEPATITIS C ANTIBODY NON-REACT [facility] NON-REACT [facility] INDEX 0.01 <1.00 [facility] Comment: ?? HCV antibody was non-reactive. There is no laboratory ?? evidence of HCV infection. ?? In most cases, no further action is required. However, if recent HCV exposure is suspected, a test for HCV RNA (test code 39146) is suggested. ?? For additional information please refer to http://education.Beeminder/faq/EEB24w4 (This link is being provided for informational/ educational purposes only.) ?? 05/22/2021 8:46 AM EDT Darius Christian MD HISTORICAL/NON ORDERA BLE LABS Final Result Performing Organization Address City/[facility] Co de Phone Number [facility] [address] * (ABNORMAL) ALBUMIN, RANDOM URINE W/CREATININE [...] [facility] 05/22/2021 8:46 AM EDT us Darius Christian MD LAB URINE ORDERABLES Final Result [facility] [address] [place] [address], from Last 3 Months or Most Recently Relevant to Health [place] [id number] [facility] [address] [place] [address] Care Teams Workforce Consultant Relationship Specialty Start Date End Date Darius Eden MD [address] [place] [phone] PCP - General Internal Medicine 05/21/21 Tip Sims, DevoraD [address] [place] [phone] Pharmacist Internal Medicine 03/20/22 [facility] 03/20/22 [facility] 12/31/23
--- OUTSIDE RECORDS SUMMARY | 2024-06-06 11:04 | XMS_ITS | Encounter Summary ---
Author Organization [employer] Address [address] [facility] [address] [place] [address] Care Team Providers Care [employer]ode [employer] Salvage Processor Name Role Phone Darius Eden MD Primary Care Provide r Tip Sims PharmD Unavailable [phone] Encounter Details Date Type Department Care Team (Latest Contact Info) Description 06/03/2024 Travel Social History Tobacco Use Types Packs/Day Years [...] Description 07/12/2024 10:30 AM EDT Office Visit [facility] [address] [place] [address] Tarka, Basia, OD [address] [place] [address] 07/14/2024 11:30 AM EDT Office Visit [facility] [address] [place] [address] Darius Eden MD [address] [place] [phone] documented as of this encounter Visit Diagnoses Not on filedocumented in this encounter Additional Health Concerns Assessment Noted Time PHQ-9 Depression Total Score: 0 11/19/19 24 10:20 AM EDT documented as of this encounter Care Teams [employer] Salvage Processor Relationship Specialty Start Date End Date Darius Eden MD [address] [place] [phone] PCP - General Internal Medicine 05/21/21 Tip Sims, DevoraD [address] [place] [phone] Pharmacist Internal Medicine 03/20/22 [facility] 03/20/22 [facility] 12/31/23 documented as of this encounter
--- OUTSIDE RECORDS SUMMARY | 2024-06-06 11:04 | XMS_ITS | Encounter Summary ---
Author Organization [employer] Address [address] [place] [address] 7t [place] [address] Care Team Providers Care Body Stylist Name Role Phone Darius Eden MD Primary Care Provide r Tip Sims PharmD Unavailable [phone] Encounter Details Date Type Department Care Team (Late st Contact Info) Description 03/05/2022 Orders Only [facility] CHC MED & PEDS [address] [place] [address] Rosaline Lamb LPN Social History Tobacco Use [...] Description 07/12/2024 10:30 AM EDT Office Visit [facility] OPTOMETRY [address] [place] [address] Basia Renteria, OD [address] [place], [place] [phone] 07/14/2024 11:30 AM EDT Office Visit [facility] MEDICINE [address] [place], [place] [phone] Darius Eden MD [address] [place], [place] [phone] documented as of this encounter Visit Diagnoses Not on filedocumented in this encounter Care Teams Body Stylist Relationship Specialty Start Date End Date Darius Eden MD [address] [place] [phone] PCP - General Internal Medicine 05/21/21 Tip Sims, DevoraD [address] [place] [address] Pharmacist Internal Medicine 03/20/22 [facility] 03/20/22 [facility] 12/31/23 documented as of this encounter
--- OUTSIDE RECORDS SUMMARY | 2024-06-06 11:04 | XMS_ITS | Encounter Summary ---
Author Organization [employer] Address [address] [place] [address] 7 [place] [address] Care Team Providers Care Medical Record Consultant Name Role Phone Darius Eden MD Primary Care Provide r Tip Sims PharmD Unavailable [phone] Reason for Referral * Consultation (Routine) - Authorized Specialty Diagnoses / Procedures Referred By Ronaldo carpio Referred To Contact Dental Burnishing Machine Operator / Dentistry Diagnoses Healthcare maintenance Avery Ceballos CNP [address] [place] [address] Phone: tel: fax: Referral ID Status Reason Start Date Expiration Date Visits Requested Visits Authorized [id number] Authorized Consult and Treat 06/03/2024 06/03/2025 1 1 Reason for Visit * Reason Comments Physical Encounter Details Date Type Department Care Team (Late st Contact Info) Description 06/03/2024 2:15 PM EDT Office Visit [facility] MEDICINE [address] [place] [address] Avery Ceballos CNP [address] [place] [address] Type 2 diabetes mellitus with hyperglycemia, with long-term current use of insulin ([facility]) (Primary Dx); Routine eye exam; Healthcare maintenance; Other insomnia; Impacted cerumen of right ear Social History Tobacco Use Types Packs/Day Years [...] AM EDT documented as of this encounter Last Filed Vital Signs Vital Sign Reading [...] oz) 06/03/2024 2:01 P M EDT Height - - Body Mass Index 32.47 04/12/2024 10:43 AM EST documented in this encounter Progress Notes * Avery Ceballos CNP - 06/03/2024 2:15 PM EDT Subjective: Len Franks is a 73 y.o. male who presents to the office for a annual wellness visit. PCP Dr Ball. Interim history: NATALY with PCP 04/12/24 for DM f/u. Per provider note: He is on a regimen of: Basaglar 80 units sc q pm, Trulicity 4.5 mg once a week and Novolog 16 units before meals Hgb A1c 04/12/2024: 7.1 from 8.9 Microalbumin 05/22/2021 13.7 Pt on an ARB (irbersartan) Current concerns: Insomnia, reports that ambien has not provided any help. Patient Active Problem List Diagnosis Essential hypertension Anxiety Benign prostatic hyperplasia Chronic low back pain Coronary arteriosclerosis Gastroesophageal reflux disease Mixed hyperlipidemia Class 1 obesity due to excess calories with serious comorbidity and body mass index (BMI) of 33.0 to 33.9 in adult Obstructive sleep apnea syndrome Peripheral vascular disease (CMS/HCC) Pure hypercholesterolemia Tear film insufficiency Tubular adenoma of colon Type 2 diabetes mellitus with circulatory disorder, with long-term current use of insulin (CMS/HCC) Thyroid nodule Moderate persistent asthma without complication Pulmonary nodules S/P CABG (coronary artery bypass graft) Preventative health care Diverticulosis Nephrolithiasis Leg edema, right Acute pain of right knee Prostatic abscess Insomnia Osteoarthritis of knees, bilateral Multinodular thyroid Hydronephrosis Environmental allergies Restless legs syndrome Primary osteoarthritis, right elbow Bilateral primary osteoarthritis of knee Chronic kidney disease, unspecified Chronic obstructive pulmonary disease, unspecified (CMS/HCC) Major depressive disorder, single episode, unspecified Past Surgical History: Procedure Laterality Date CORONARY ARTERY BYPASS GRAFT No family history on file. Social History Substance use: none -alcohol -tobacco -opioids Sexual activity: declines STI screening Mental health: Patient Health Questionnaire-9 Score: 0 (11/19/2023 10:20 AM) Patient Health Questionnaire-2 Score: 0 (11/19/2023 10:20 AM) Thoughts that you would be better off or hurting yourself in some way: Not at all (11/19/2023 10:20 AM) No Known Allergies Review of Systems Constitutional: Negative for chills, diaphoresis, fatigue and unexpected weight change. HENT: Negative. Eyes: Negative. Respiratory: Negative for choking, chest tightness and shortness of breath. Cardiovascular: Negative for chest pain and palpitations. Gastrointestinal: Negative. Endocrine: Negative. Genitourinary: Negative. Musculoskeletal: Negative. Skin: Negative. Neurological: Negative. Hematological: Negative. Psychiatric/Behavioral: Positive for sleep disturbance. Negative for agitation, behavioral problems, self-injury and suicidal ideas. The patient is not nervous/anxious. Vitals: 06/03/24 1401 BP: 128/78 BP Location: Left arm Patient Position: Sitting BP Cuff Size: Large adult Pulse: 73 Resp: 16 Temp: 97.8 ??F (36.6 ??C) TempSrc: Temporal SpO2: 96% Weight: 201 lb 3.2 oz (91.3 kg) Physical Exam Vitals reviewed. Constitutional: General: He is not in acute distress. Appearance: Normal appearance. He is not ill-appearing, toxic-appearing or diaphoretic. HENT: Head: Normocephalic and atraumatic. Right Ear: There is impacted cerumen. Left Ear: Tympanic membrane, ear canal and external ear normal. Nose: Nose normal. No congestion or rhinorrhea. Eyes: General: No scleral icterus. Right eye: No discharge. Left eye: No discharge. Extraocular Movements: Extraocular movements intact. Conjunctiva/sclera: Conjunctivae normal. Pupils: Pupils are equal, round, and reactive to light. Cardiovascular: Rate and Rhythm: Normal rate and regular rhythm. Pulses: Normal pulses. Dorsalis pedis pulses are 2+ on the right side and 2+ on the left side. Posterior tibial pulses are 2+ on the right side and 2+ on the left side. Heart sounds: Normal heart sounds. No murmur heard. No friction rub. No gallop. Pulmonary: Effort: Pulmonary effort is normal. No respiratory distress. Breath sounds: Normal breath sounds. No stridor. No wheezing, rhonchi or rales. Chest: Chest wall: No tenderness. Abdominal: General: Abdomen is flat. Bowel sounds are normal. Palpations: Abdomen is soft. Musculoskeletal: Cervical back: Normal range of motion. No tenderness. Right lower leg: No edema. Left lower leg: No edema. Right foot: Normal range of motion. No deformity. Left foot: Normal range of motion. No deformity. Feet: Right foot: Protective Sensation: 10 sites tested. 10 sites sensed. Skin integrity: Skin integrity normal. No ulcer, blister, skin breakdown, erythema, warmth, callus,dry skin or fissure. Toenail Condition: Right toenails are normal. Left foot: Protective Sensation: 10 sites tested. 10 sites sensed. Skin integrity: Skin integrity normal. No ulcer, blister, skin breakdown, erythema, warmth, callus,dry skin or fissure. Toenail Condition: Left toenails are normal. Lymphadenopathy: Cervical: No cervical adenopathy. Skin: Coloration: Skin is not jaundiced. Findings: No bruising or lesion. Neurological: General: No focal deficit present. Mental Status: He is alert and oriented to person, place, and time. Mental status is at baseline. Psychiatric: Mood and Affect: Mood normal. Behavior: Behavior normal. Thought Content: Thought content normal. Judgment: Judgment normal. Routine Screening and Health Maintenance Optometry: Yes appt scheduled for june Dental: No referrals sent ASCVD risk: 73 y.o. male The 10-year ASCVD risk score (Jose TOVAR, et al., 2019) is: 45.4% Values used to calculate the score: Age: 73 years Sex: Male Is Non- : No Diabetic: Yes Tobacco smoker: No Systolic Blood Pressure: 128 mmHg Is BP treated: Yes HDL Cholesterol: 40 mg/dL Total Cholesterol: 133 mg/dL Lab Review: new orders sent today Problem List Items Addressed This Visit Insomnia Pt reports ambien has been ineffective, denies unwanted side effects. Will send message to PCP for further guidance. Other Visit Diagnoses Type 2 diabetes mellitus with hyperglycemia, with long-term current use of insulin ([facility]) - Primary Relevant Orders Albumin, Random Urine W/Creatinine POCT HGB A1C (Completed) POCT Glucose (Completed) Lab Results Component Value Date HGBA1C 6.2 (A) 06/03/2024 A1c at goal today Maintenance BMP: UTD Microalbumin: ordered Foot Exam: completed today, risk score: 0 Eye Exam: scheduled for next month Lipid panel: reminded pt to have this completed, already ordered Statin: yes ASA: yes NAIDA/ARB: yes Encouraged regular aerobic exercise for improved glycemic control Encouraged daily foot checks Encouraged lean protein snacks and to avoid foods high in sugar and simple carbohydrates Treatment Goals: A1c goal: <7% FBG goal: <130 2 hour post prandial goal: <180 Impacted cerumen of right ear Performed in office irrigation of r ear today Healthcare maintenance Relevant Orders Referral to [facility] Dental Adult Vision: UTD Dental: not UTD, referral placed Colon CA: Labs: see orders IMMs: declines due vaccinations today Declines STI testing today [facility] J[employer]EL[employer] Attestation [employer] Resident Attestation: Patient was seen and evaluated by Avery Ceballos CNP, in collaboration with Seth Mar MD whohas reviewed my assessment and plan. I, Seth Mar MD , have reviewed the resident's note and agree with the assessment & plan of care as documented above. Visit Conducted in: Somali Translation by: Provided by [facility] staff member Dandre Arreola MA , documented in this encounter Plan of Treatment Upcoming Encounters Date Type Department Care Team (Late st Contact Info) Description 07/12/2024 10:30 AM EDT Office Visit [facility] OPTOMETRY [address] [place] [address] Basia Renteria, OD [address] [place] [address] 07/14/2024 11:30 AM EDT Office Visit [facility] MEDICINE [address] [place] [address] Darius Eden MD [address] [place] [address] Scheduled Orders Name Type Priority Associated Diagnoses Orde r Schedule Albumin, Random Urine W/Creatinine Lab Routine Type 2 diabetes mellitus with hyperglycemia, with long-term current use of insulin ([facility]) Expected: 06/03/2024 (Approximate), Expires: 06/03/2025 Scheduled Referrals Name Type Priority Associated Diagnoses Orde r Schedule Referral to [facility] Dental Adult Outpatient Referral Routine Healthcare maintenance Expected: 06/03/2024 (Approximate), Expires: 06/03/2025 documented as of this encounter Procedures Procedure Name Priority Date/Time Associated Diagnosis Comments POCT GLYCATED HEMOGLOBIN, TOTAL Routine 06/03/2024 2:12 PM EDT Type 2 diabetes mellitus with hyperglycemia, with long-term current use of insulin ([facility]) POCT GLUCOSE Routine 06/03/2024 2:10 PM EDT Type 2 diabetes mellitus with hyperglycemia, with long-term current use of insulin ([facility]) documented in this encounter Results * (ABNORMAL) POCT HGB A1C (06/03/2024 2:12 PM EDT) Hemoglobin A1C 6.2(A) 4.0 - 6.0 % QC Media Lot # [id number] Lot# Expiration Date Blood 06/03/2024 2:12 PM EDT Result [facility] POINT OF CARE TEST ENTER/ EDIT ORDERABLES Final Result * POCT Glucose (06/03/2024 2:10 PM EDT) Glucose Blood, POC 158 60 - 200 mg/dL QC Media Lot # [id number] Lot# Expiration Date Blood Capillary blood specimen / Unknown 06/03/2024 2:10 PM EDT Result [facility] POINT OF CARE TEST ENTER/ EDIT ORDERABLES Final Result documented in this encounter Visit Diagnoses Diagnosis Type 2 diabetes mellitus with hyperglycemia, with long-term current use of insulin ([facility])- Primary Routine eye exam Examination of eyes and vision Healthcare maintenance Other insomnia Impacted cerumen of right ear Impacted cerumen documented in this encounter Additional Health Concerns Assessment Noted Time PHQ-9 Depression Total Score: 0 11/19/19 24 10:20 AM EDT documented as of this encounter Care Teams Medical Record Consultant Relationship Specialty Start Date End Date Darius Eden MD [address] [place] [address] PCP - General Internal Medicine 05/21/21 Tip Sims, DevoraD [address] [place] [phone] Pharmacist Internal Medicine 03/20/22 [facility] 03/20/22 [facility] 12/31/23 documented as of this encounter
--- OUTSIDE RECORDS SUMMARY | 2024-06-06 11:04 | XMS_ITS | Encounter Summary ---
Author Organization [facility] [employer] Address [address] [place] [address] 7t [place] [address] Care Team Providers Care Spa Director/Finance Name Role Phone Darius Eden MD Primary Care Provide r Tip Sims PharmD Unavailable [phone] Encounter Details Date Type Department Care Team (Late st Contact Info) Description 03/05/2022 Orders Only [facility] MEDICINE [address] [place] [address] Britney Burton LPN Social History Tobacco Use [...] Description 07/12/2024 10:30 AM EDT Office Visit [facility] OPTOMETRY [address] [place], [place] [phone] Basia Renteria, TAYLOR [address] [place], [place] [phone] 07/14/2024 11:30 AM EDT Office Visit [facility] MEDICINE [address] [place] [address] Darius Eden MD [address] [place] [address] documented as of this encounter Visit Diagnoses Not on filedocumented in this encounter Care Teams Spa Director/Finance Relationship Specialty Start Date End Date Darius Eden MD [address] [place] [address] PCP - General Internal Medicine 05/21/21 Tip Sims, DevoraD [address] [place] [address] Pharmacist Internal Medicine 03/20/22 [facility] 03/20/22 [facility] 12/31/23 documented as of this encounter
--- OUTSIDE RECORDS SUMMARY | 2024-06-06 11:04 | XMS_ITS | Encounter Summary ---
Author Organization [employer] Address [address] [facility] 7t [place] [address] Care Team Providers Care Batch Dumper Name Role Phone Darius Eden MD Primary Care Provide r Tip Sims PharmD Unavailable [phone] Reason for Visit * Reason Onset Date Comments Durable Medical Equipment 05/27/2024 Encounter Details Date Type Department Care Team ([facility] st Contact Info) Description 05/27/2024 Telephone [facility] MEDICINE [address] [place], [place] [phone] Darius Eden MD [address] [place], [place] [phone] Durable Medical Equipment Social History Tobacco Use Types Packs/Day Years [...] encounter Miscellaneous Notes * Telephone Encounter - Sepideh Bryant - 06/03/2024 11:05 AM EDT RX for Shower chair signed and faxed to Robert . Confirmation received and sent to scan. If patient calls to check status on above, please advise them to contact Robert at [phone]. * Telephone Encounter - Sepideh Bryant - 06/01/2024 3:06 PM EDT DME RX for Shower chair generated and placed on providers desk for review and signature if agree. * Telephone Encounter - Babita Rosales - 05/27/2024 2:26 PM EDT Tc from pt [employer]IV[employer] REGISTRAR/granddaughter Deepa requesting a shower chair. If any questions contact [phone] documented in this encounter Plan of Treatment Upcoming Encounters Date Type Department Care Team (Late st Contact Info) Description 07/12/2024 10:30 AM EDT Office Visit [facility] OPTOMETRY [address] [place] [address] Dexter Basia, OD [address] [place] [address] 07/14/2024 11:30 AM EDT Office Visit [facility] MEDICINE [address] [place] [address] Darius Eden MD [address] [place] [address] documented as of this encounter Visit Diagnoses Not on filedocumented in this encounter Additional Health Concerns Assessment Noted Time PHQ-9 Depression Total Score: 0 11/19/19 24 10:20 AM EDT documented as of this encounter Care Teams Batch Dumper Relationship Specialty Start Date End Date Darius Eden MD [address] [place] [address] PCP - General Internal Medicine 05/21/21 Tip Sims, DevoraD [address] [place] [phone] Pharmacist Internal Medicine 03/20/22 [facility] 03/20/22 [facility] 12/31/23 documented as of this encounter
--- OUTSIDE RECORDS SUMMARY | 2024-06-06 11:04 | XMS_ITS | Encounter Summary ---
Author Organization [employer] Address [address] [facility] 7t [place] [address] Care Team Providers Care Termite Control Service Representative Name Role Phone Darius Eden MD Primary Care Provide r Tip Sims PharmD Unavailable [phone] Reason for Visit * Reason Comments Med Change Request Encounter Details Date Type Department Care Team ([facility] st Contact Info) Description 11/20/2023 Refill [facility] MEDICINE [address] [place], [place] [phone] Darius Eden MD [address] [place], [place] [phone] Primary insomnia Social History Tobacco Use Types [...] Description 07/12/2024 10:30 AM EDT Office Visit [facility] OPTOMETRY [address] [place] [address] Basia Renteria, OD [address] [place] [address] 07/14/2024 11:30 AM EDT Office Visit [facility] MEDICINE [address] [place] [address] Darius Eden MD [address] [place] [address] documented as of this encounter Visit Diagnoses Diagnosis Primary insomnia Persistent disorder of initiating or maintaining sleep documented in this encounter Additional Health Concerns Assessment Noted Time PHQ-9 Depression Total Score: 0 11/19/19 24 10:20 AM EDT documented as of this encounter Care Teams Termite Control Service Representative Relationship Specialty Start Date End Date Darius Eden MD [address] [place] [phone] PCP - General Internal Medicine 05/21/21 Tip Sims, PharmD [address] [place] [phone] Pharmacist Internal Medicine 03/20/22 [facility] 03/20/22 [facility] 12/31/23 documented as of this encounter
--- OUTSIDE RECORDS SUMMARY | 2024-06-06 11:04 | XMS_ITS | Encounter Summary ---
Author Organization [employer] Address [address] [place] [address] 7t [place] [address] Care Team Providers Care Assessor Name Role Phone Darius Eden MD Primary Care Provide r Tip Sims PharmD Unavailable [phone] Encounter Details Date Type Department Care Team (Late st Contact Info) Description 03/12/2022 Telephone [facility] MEDICINE [address] [place] [address] Darius Eden MD [address] [place] [phone] Social History Tobacco Use Types Packs/Day Years [...] Description 07/12/2024 10:30 AM EDT Office Visit [facility] OPTOMETRY [address] [place] [address] Basia Renteria, OD [address] [place] [address] 07/14/2024 11:30 AM EDT Office Visit [facility] MEDICINE [address] [place] [address] Darius Eden MD [address] [place] [address] documented as of this encounter Visit Diagnoses Not on filedocumented in this encounter Care Teams Assessor Relationship Specialty Start Date End Date Darius Eden MD [address] [place] [address] [phone] PCP - General Internal Medicine 05/21/21 Tip Sims, PharmD [address] [place] [address] [phone] Pharmacist Internal Medicine 03/20/22 [facility] 03/20/22 [facility] 12/31/23 documented as of this encounter
--- OUTSIDE RECORDS SUMMARY | 2024-06-06 11:04 | XMS_ITS | Encounter Summary ---
Author Organization [employer] Address [address] [facility] 7t [place] [address] Care Team Providers Care Layer Out Name Role Phone Darius Eden MD Primary Care Provide r Tip Sims PharmD Unavailable [phone] Reason for Visit * Reason Comments Med Refill Encounter Details Date Type Department Care Team ([facility] st Contact Info) Description 02/16/2024 Refill [facility] CHC MED & PEDS [address] [place] [address] Darius Eden MD [address] [place] [address] Primary insomnia Social History Tobacco Use Types [...] Description 07/12/2024 10:30 AM EDT Office Visit [facility] OPTOMETRY [address] [place] [address] Basia Renteria, OD [address] [place] [address] 07/14/2024 11:30 AM EDT Office Visit [facility] MEDICINE [address] [place] [address] Darius Eden MD [address] [place] [address] documented as of this encounter Visit Diagnoses Diagnosis Primary insomnia Persistent disorder of initiating or maintaining sleep documented in this encounter Additional Health Concerns Assessment Noted Time PHQ-9 Depression Total Score: 0 11/19/19 24 10:20 AM EDT documented as of this encounter Care Teams Layer Out Relationship Specialty Start Date End Date Darius Eden MD [address] [place] [address] PCP - General Internal Medicine 4/12/22 Tip Sims, PharmD [address] [place] [address] Pharmacist Internal Medicine 03/20/22 [facility] 03/20/22 [facility] 12/31/23 documented as of this encounter
--- OUTSIDE RECORDS SUMMARY | 2024-06-06 11:04 | XMS_ITS | Encounter Summary ---
Author Organization [employer] Address [address] [facility] 7t [place] [address] Care Team Providers Care Director Of Social Work Name Role Phone Darius Eden MD Primary Care Provide r Tip Sims PharmD Unavailable [phone] Reason for Visit * Reason Onset Date Comments New Med Request 09/21/2023 Encounter Details Date Type Department Care Team ([facility] st Contact Info) Description 09/21/2023 Telephone [facility] MEDICINE [address] [place], [place] [phone] Darius Eden MD 230 [place], [place] [phone] New Med Request Social History Tobacco Use [...] [facility] OPTOMETRY [address] [place] [address] Basia Renteria, OD [address] [place] [address] 07/14/2024 11:30 AM EDT Office Visit [facility] MEDICINE [address] [place] [address] Darius Eden MD [address] [place] [address] documented as of this encounter Visit Diagnoses Not on filedocumented in this encounter Additional Health Concerns Assessment Noted Time PHQ-9 Depression Total Score: 6 10/15/19 23 3:08 PM EDT documented as of this encounter Care Teams Director Of Social Work Relationship Specialty Start Date End Date Darius Eden MD [address] [place] [address] PCP - General Internal Medicine 05/21/21 Tip Sims, DevoraD [address] [place] [phone] Pharmacist Internal Medicine 03/20/22 [facility] 03/20/22 [facility] 12/31/23 documented as of this encounter
--- OUTSIDE RECORDS SUMMARY | 2024-06-06 11:04 | XMS_ITS | Encounter Summary ---
Author Organization [email or web address] Address [address] [facility] 7t [place] [address] Care Team Providers Care Fermentologist Name Role Phone Darius Eden MD Primary Care Provide r Tip Sims PharmD Unavailable [phone] Reason for Visit * Reason Comments Med Refill Encounter Details Date Type Department Care Team (Late st Contact Info) Description 02/11/2024 Refill [facility]ED[facility] [address] [place], [place] [phone] Darius Eden MD [address] [place], [place] [phone] Depressive disorder; Primary insomnia Social History Tobacco [...] Description 07/12/2024 10:30 AM EDT Office Visit [facility] OPTOMETRY [address] [place] [address] Basai Renteria, OD [address] [place] [address] 07/14/2024 11:30 AM EDT Office Visit [facility] MEDICINE 230 [place] [address] Darius Eden MD [address] [place] [address] documented as of this encounter Visit Diagnoses Diagnosis Depressive disorder Depressive disorder, not elsewhere classified Primary insomnia Persistent disorder of initiating or maintaining sleep documented in this encounter Additional Health Concerns Assessment Noted Time PHQ-9 Depression Total Score: 0 11/19/19 24 10:20 AM EDT documented as of this encounter Care Teams Fermentologist Relationship Specialty Start Date End Date Darius Eden MD [address] [place] [address] PCP - General Internal Medicine 05/21/21 Tip Sims, DevoraD [address] [place] [address] Pharmacist Internal Medicine 03/20/22 [facility] 03/20/22 [facility] 12/31/23 documented as of this encounter
[2024-06-06 11:27] LABS: Cholesterol 101 mg/dL (<200); HDL Cholesterol 41 mg/dL (>40); LDL Cholesterol Calculated 44 mg/dL (<100); Triglycerides 83 mg/dL (<150)
[2024-06-06 11:45] LABS: Estimated Average Glucose 131 mg/dL; Hemoglobin A1C 176.6926 umol/L; Hemoglobin A1c % 6.2 % (<6.0); Total Hemoglobin (HGBA1C) 4002.2067 umol/L
[2024-06-06 11:48] LABS: Prostate Specific Antigen Scr 3.03 ng/mL (<0.05-4.0)
[2024-06-06 12:06] LABS: Creatinine Urine 387.16 mg/dL; Microalbum/Creatinine Ratio Ur 15.7 ug/mg cr (<30)
== END 2024-06-06 09:46 | disposition home or self-care (01) ==
LOC: HO.HHCL 09:45
PROVIDERS: Visit Provider Internal Medicine
DX: E11.65 Type 2 diabetes mellitus with hyperglycemia (principal); Z79.4 Long term (current) use of insulin; N40.1 Benign prostatic hyperplasia with lower urinary tract symptoms; R39.14 Feeling of incomplete bladder emptying; I25.10 Atherosclerotic heart disease of native coronary artery without angina pectoris; Z12.5 Encounter for screening for malignant neoplasm of prostate
CPT/HCPCS: 36415; 80061; 82043; 82570; 83036; 84153

== ENCOUNTER 2024-06-08 13:19 | Outpatient (AMB) | payer MEDICARE, MEDICAID, SELFPAY ==
[2024-06-08 13:45] VITALS: BP 118/57; PULSE 72; O2SAT 97; BMI 32.0
--- NOTE | 2024-06-08 13:45 | A.OFFVIS_ITS ---
Vital Signs 06/08/24 13:45 Height 5 ft 6 in Weight 198 lb 6.656 oz BMI 32.0 BP 118/57 L Blood Pressure Location Lt brachial Position Sitting Pulse 72 Pulse Source Doppler Pulse Oximetry (%) 97 Oxygen Delivery Method Room Air Intake Visit Reasons: Asthma/xolair Milling Machine Set Up Operator Required: Yes Milling Machine Set Up Operator Name: Rosaline Arreola Akshat Allergies No Known Allergies [No Known Allergies*] Allergy (Verified 06/08/24 13:48) HPI HPI Asthma/xolair: Details: 73-year-old gentleman, former 10 pack year smoker, quit 1999, now followed for asthma/COPD overlap syndrome, environmental allergies, and DEANDRE.? His symptoms were previously well controlled on Xolair, Breo, and albuterol MDI. However he was not able to receive his Xolair with the last 6 months with somewhat worsening control of his symptoms. His GERD symptoms improved on twice a day PPI. He continues to use CPAP with good control of underlying DEANDRE. [facility] Medical History Osteoarthritis of knees, bilateral Type 2 diabetes mellitus with unspecified complications Sepsis Hyperthyroidism Multinodular thyroid HLD (hyperlipidemia) HTN (hypertension) Obesity NSTEMI (non-ST elevated myocardial infarction) CAD (coronary artery disease) Diabetes mellitus Myocardial infarct Surgical History History of esophagogastroduodenoscopy (EGD) Hx of colonoscopy Hx of ultrasound guided needle biopsy Hx of CABG (~07/2016) Family History Mother Cardiovascular disease Father Medical history unknown Sister Cancer Brother Cancer Social History Household Members: Family Housing: Apartment Are you a primary managed care specialist to a significant other at home: No Do you presently have visiting nurse or other home services: No Alcohol intake: former Patient Tobacco Use Status: Former Tobacco user Second Hand Smoke Exposure: No service: No Current occupational status: unemployed Review of Systems Const Denies daytime sleepiness, Denies excessive sweating, Denies fatigue, Denies fever(s), Denies lethargy, Denies malaise, Denies night sweats, Denies snoring and Denies weight loss Eyes Denies blurry vision and Denies itchy eyes ENT Denies nasal congestion, Denies post nasal drip, Denies sinus pain, Denies sinus pressure and Denies other ( Thrush) Card Denies chest pain, Denies pedal edema, Denies dyspnea, Denies orthopnea and Denies paroxysmal nocturnal dyspnea Resp Denies cough, Denies hemoptysis, Denies excessive phlegm production, Denies dyspnea, Denies snoring and Denies wheezing GI Denies abdominal pain and Denies heartburn Musc Denies myalgias, Denies arthralgias and Denies joint swelling Skin/Breast Denies rash Neuro Denies memory loss and Denies seizure-like activity Psych Denies abnormal sleep pattern, Denies anxiety and Denies memory loss Endo Denies excessive sweating, Denies fatigue and Denies heat intolerance Glenn/Lymph Denies easy bruising Aller/Immun Denies itchy eyes, Denies seasonal rhinorrhea and Denies wheezing Physical Exam Vital Signs: Last Vital Signs Pulse 72 06/08/24 13:45 BP 118/57 L 06/08/24 13:45 Pulse Ox 97 06/08/24 13:45 Oxygen Delivery Method Room Air 06/08/24 13:45 BMI result Body Mass Index 32.0 Const General: no acute distress and alert Nutritional Appearance: not obese Orientation/consciousness: Other orientation findings ( oriented) HEENT Head: Yes atraumatic Eyes General: appearance normal, both eyes and all related structures Sclerae: sclerae normal EOM: EOMs intact bilaterally Neck Neck: Yes supple Lymphatic: no lymphadenopathy noted Resp Effort & Inspection: normal respiratory effort and no use of accessory muscles Auscultation: clear to auscultation bilaterally Cardio Rate: regular rate Rhythm: regular rhythm Heart sounds: no gallops, no murmurs and no rubs Skin General skin exam: other ( warm) Extrem General: No clubbing, No cyanosis and No edema Assessment & Plan Assessment & Plan (1) Severe persistent asthma: Code(s): J45.50 - Severe persistent asthma, uncomplicated Category: Medical Plan: Suboptimal control off Xolair. Restart Xolair. Continue Breo and albuterol MDI. (2) Environmental allergies: Code(s): Z91.09 - Other allergy status, other than to drugs and biological substances Category: Medical Plan: Suboptimal control of Xolair, expect to improve after restarting Xolair. (3) DEANDRE on CPAP: Code(s): G47.33 - Obstructive sleep apnea (adult) (pediatric); Z99.89 - Dependence on other enabling machines and devices Category: Medical Plan: Well controlled on current CPAP therapy. Continue CPAP therapy. (4) GERD (gastroesophageal reflux disease): Code(s): K21.9 - Gastro-esophageal reflux disease without esophagitis Category: Medical Plan: Well controlled on twice a day PPI. Continue current regimen. Coding Level of Care Code Est Pt Level 4 (10600) Complex EM visit Add On G2211 Diagnoses Severe persistent asthma J45.50 Environmental allergies Z91.09 DEANDRE on CPAP G47.33; Z99.89 GERD (gastroesophageal reflux disease) K21.9
--- OUTSIDE RECORDS SUMMARY | 2024-06-08 14:41 | XMS_ITS | Encounter Summary ---
Author Organization [employer] Address [address] [place] [address] 7 [place] [address] Care Team Providers Care Loan Review Officer Name Role Phone Darius Eden MD Primary Care Provide r Tip Sims PharmD Unavailable [phone] Reason for Referral * Consultation (Routine) - Authorized Specialty Diagnoses / Procedures Referred By Ronaldo carpio Referred To Contact Dental [employer] / Dentistry Diagnoses Healthcare maintenance Avery Ceballos CNP [address] [place] [address] Phone: tel: fax: Referral ID Status Reason Start Date Expiration Date Visits Requested Visits Authorized [id number] Authorized Consult and Treat 06/03/2024 06/03/2025 1 1 Reason for Visit * Reason Comments Physical Encounter Details Date Type Department Care Team (Late st Contact Info) Description 06/03/2024 2:15 PM EDT Office Visit [facility] MEDICINE [address] [place] [address] Avery Ceballos CNP [address] [place] [address] Type 2 diabetes mellitus with hyperglycemia, with long-term current use of insulin ([facility]) (Primary Dx); Routine eye exam; Healthcare maintenance; [...] hyperglycemia, with long-term current use of insulin ([facility]) - Primary Relevant Orders Albumin, Random Urine [...] today Healthcare maintenance Relevant Orders Referral to [facility] Dental Adult Vision: UTD Dental: not UTD, referral placed Colon CA: Labs: see orders IMMs: declines due vaccinations today Declines STI testing today [facility] UNDERWRITING CLERK Attestation UNDERWRITING CLERK Resident Attestation: Patient was seen and evaluated by Avery Ceballos CNP, in collaboration with Seth Mar MD whohas reviewed my assessment and plan. I, Seth Mar MD , have reviewed the resident's note and agree with the assessment & plan of care as documented above. Visit Conducted in: Belgian Translation by: Provided by [facility] staff member Dandre Arreola MA , documented in this encounter Plan of Treatment Upcoming Encounters Date Type Department Care Team (Late st Contact Info) Description 07/12/2024 10:30 AM EDT Office Visit [facility] OPTOMETRY [address] [place] [address] Basia Renteria, OD [address] [place] [address] 07/14/2024 11:30 AM EDT Office Visit [facility] MEDICINE [address] [place] [address] Darius Eden MD [address] [place] [address] Scheduled Referrals Name Type Priority Associated Diagnoses Orde r Schedule Referral to [facility] Dental Adult Outpatient Referral Routine Healthcare maintenance Expected: 06/03/2024 (Approximate), Expires: 06/03/2025 documented as of this encounter Procedures Procedure Name Priority Date/Time Associated Diagnosis Comments ALBUMIN, RANDOM URINE W/CREATININE Routine 06/06/2024 9:49 AM EDT Type 2 diabetes mellitus with hyperglycemia, with long-term current use of insulin ([facility]) POCT GLYCATED HEMOGLOBIN, TOTAL Routine 06/03/2024 2:12 PM EDT Type 2 diabetes mellitus with hyperglycemia, with long-term current use of insulin ([facility]) POCT GLUCOSE Routine 06/03/2024 2:10 PM EDT Type 2 diabetes mellitus with hyperglycemia, with long-term current use of insulin ([facility]) documented in this encounter Results * Albumin, Random Urine W/Creatinine (06/06/2024 9:49 AM EDT) Pathologist [facility] Creatinine, Urine 387.16 mg/dL [facility] Microalbumin Urine 61.0 mg/L [facility] Microalbum Creatinine Ratio Ur 15.7 <30 ug/mg cr [facility] Comment:Albumin/Creatinine R atio Reference Ranges: Normal: < 30 ug/mg creatinine Microalbuminuria: 30 - 300 ug/mg creatinineClinical Albuminuria: > 300 ug/mg creatinine Urine (Urine, Random) 06/06/2024 9:49 AM EDT 06/06/2024 11:03 AM EDT [facility] URINE ORDERABLES Cassidy l Result [facility] [address] [place] [phone] * (ABNORMAL) POCT HGB A1C (06/03/2024 2:12 PM EDT) Pathologist [facility] Hemoglobin A1C 6.2(A) 4.0 - 6.0 % QC Media Lot # [id number] Lot# Expiration Date Blood 06/03/2024 2:12 PM EDT [facility] POINT OF CARE TEST ENTER/ EDIT ORDERABLES Final Result * POCT Glucose (06/03/2024 2:10 PM EDT) Pathologist [facility] Glucose Blood, POC 158 60 - 200 mg/dL QC Media Lot # [id number] Lot# Expiration Date Blood Capillary blood specimen / Unknown 06/03/2024 2:10 PM EDT [facility] POINT OF CARE TEST ENTER/ EDIT ORDERABLES Final Result documented in this encounter Visit Diagnoses Diagnosis Type 2 diabetes mellitus with hyperglycemia, with long-term current use of insulin ([facility])- Primary Routine eye exam Examination of eyes and vision Healthcare maintenance Other insomnia Impacted cerumen of right ear Impacted cerumen documented in this encounter Additional Health Concerns Assessment Noted Time PHQ-9 Depression Total Score: 0 11/19/19 24 10:20 AM EDT documented as of this encounter Care Teams Loan Review Officer Relationship Specialty Start Date End Date Darius Eden MD [address] [place] [address] PCP - General Internal Medicine 05/21/21 Tip Sims PharmD [address] [place] [address] Pharmacist Internal Medicine 03/20/22 [facility] Pharmacist Pharmacy 03/20/22 [facility] 12/31/23 documented as of this encounter
--- OUTSIDE RECORDS SUMMARY | 2024-06-08 14:41 | XMS_ITS | Encounter Summary ---
Author Organization [employer] Address [address] [facility] 7 [place] [address] Care Team Providers Care Staff Development Educator Name Role Phone Darius Eden MD Primary Care Provide r Tip Sims PharmD Unavailable [phone] Reason for Visit * Reason Comments Med Refill Encounter Details Date Type Department Care Team ([facility] st Contact Info) Description 03/09/2023 Refill [facility] MEDICINE [address] [place], [place] [phone] Darius Eden MD [address] [place], [place] [phone] Acute cough Social History Tobacco Use Types [...] 07/12/2024 10:30 AM EDT Office Visit [facility] OPTOMETRY [address] [place] [address] TarkaBasia, OD [address] [place] [address] 07/14/2024 11:30 AM EDT Office Visit [facility] MEDICINE [address] [place] [address] Darius Eden MD [address] [place] [address] documented as of this encounter Visit Diagnoses Diagnosis Acute cough documented in this encounter Additional Health Concerns Assessment Noted Time PHQ-9 Depression Total Score: 6 10/15/19 23 3:08 PM EDT documented as of this encounter Care Teams Staff Development Educator Relationship Specialty Start Date End Date Darius Eden MD [address] [place] [phone] PCP - General Internal Medicine 05/21/21 Tip Sims, Carlos [address] [place] [phone] Pharmacist Internal Medicine 03/20/22 [facility] Pharmacist Pharmacy 03/20/22 [facility] 12/31/23 documented as of this encounter
--- OUTSIDE RECORDS SUMMARY | 2024-06-08 14:41 | XMS_ITS | Encounter Summary ---
Author Organization [facility] Address [address] [place] [address] 7t [place] [address] Care Team Providers Care Service Director Name Role Phone Darius Eden MD Primary Care Provide r Tip Sims PharmD Unavailable [phone] Encounter Details Date Type Department Care Team (Late st Contact Info) Description 03/05/2022 Orders Only [facility] MEDICINE [address] [place] [phone] Britney Burton LPN Social History Tobacco Use [...] 10:30 AM EDT Office Visit [facility] OPTOMETRY [address] [place], [place] [phone] Basia Renteria, TAYLOR [address] [place], [place] [phone] 07/14/2024 11:30 AM EDT Office Visit [facility] MEDICINE [address] [place] [address] Darius Eden MD [address] [place] [address] documented as of this encounter Visit Diagnoses Not on filedocumented in this encounter Care Teams Service Director Relationship Specialty Start Date End Date Darius Eden MD [address] [place] [address] PCP - General Internal Medicine 05/21/21 Tip Sims, DevoraD [address] [place] [address] Pharmacist Internal Medicine 03/20/22 [facility] Pharmacist Pharmacy 03/20/22 [facility] 12/31/23 documented as of this encounter
--- OUTSIDE RECORDS SUMMARY | 2024-06-08 14:41 | XMS_ITS | Encounter Summary ---
Author Organization [employer] Address [address] [facility] 7t [place] [address] Care Team Providers Care Hearing Aid Mechanic Name Role Phone Darius Eden MD Primary Care Provide r Tip Sims PharmD Unavailable [phone] Encounter Details Date Type Department Care Team [...] Description 07/12/2024 10:30 AM EDT Office Visit [facility] OPTOMETRY [address] [place] [address] Tarka, Basia, OD [address] [place] [address] 07/14/2024 11:30 AM EDT Office Visit [facility] MEDICINE 230 [place] [address] Darius Eden MD [address] [place] [address] documented as of this encounter Visit Diagnoses Not on filedocumented in this encounter Additional Health Concerns Assessment Noted Time PHQ-9 Depression Total Score: 0 11/19/19 24 10:20 AM EDT documented as of this encounter Care Teams Hearing Aid Mechanic Relationship Specialty Start Date End Date Darius Eden MD [address] [place] [address] PCP - General Internal Medicine 05/21/21 Tip Sims, DevoraD [address] [place] [address] Pharmacist Internal Medicine 03/20/22 [facility] Pharmacist Pharmacy 03/20/22 [facility] 12/31/23 documented as of this encounter
--- OUTSIDE RECORDS SUMMARY | 2024-06-08 14:41 | XMS_ITS | Encounter Summary ---
Author Organization [employer] Address [address] [facility] 7t [place] [address] Care Team Providers Care Hat Brim Curler Name Role Phone Darius Eden MD Primary Care Provide r Tip Sims PharmD Unavailable [phone] Reason for Visit * Reason Comments Med Refill Encounter Details Date Type Department Care Team ([facility] st Contact Info) Description 01/19/2023 Refill [facility] MEDICINE [address] [place], [place] [phone] Darius Eden MD [address] [place], [place] [phone] Mild depression Social History Tobacco Use Types [...] 10:30 AM EDT Office Visit [facility] OPTOMETRY [address] [place] [address] TarkaBasia, OD [address] [place] [address] 07/14/2024 11:30 AM EDT Office Visit [facility] MEDICINE [address] [place] [address] Darius Eden MD [address] [place] [address] documented as of this encounter Visit Diagnoses Diagnosis Mild depression Depressive disorder, not elsewhere classified documented in this encounter Additional Health Concerns Assessment Noted Time PHQ-9 Depression Total Score: 6 10/15/19 23 3:08 PM EDT documented as of this encounter Care Teams Hat Brim Curler Relationship Specialty Start Date End Date Darius Eden MD [address] [place] [address] PCP - General Internal Medicine 05/21/21 Tip Sims, DevoraD [address] [place] [address] Pharmacist Internal Medicine 03/20/22 [facility] Pharmacist Pharmacy 03/20/22 [facility] 12/31/23 documented as of this encounter
--- OUTSIDE RECORDS SUMMARY | 2024-06-08 14:41 | XMS_ITS | Encounter Summary ---
Author Organization [employer] Address [address] [place] [address] 7t [place] [address] Care Team Providers Care Weir Fisher Name Role Phone Darius Eden MD Primary Care Provide r Tip Sims PharmD Unavailable [phone] Encounter Details Date Type Department Care Team (Late st Contact Info) Description 03/12/[address] [facility] MEDICINE [address] [place] [address] Darius Eden MD [address] [place] [address] Social History Tobacco Use Types Packs/Day Years [...] Description 07/12/2024 10:30 AM EDT Office Visit [facility] OPTOMETRY [address] [place] [address] Basia Renteria, OD [address] [place] [address] 07/14/2024 11:30 AM EDT Office Visit [facility] MEDICINE [address] [place] [address] Darius Eden MD [address] [place] [address] documented as of this encounter Visit Diagnoses Not on filedocumented in this encounter Care Teams Weir Fisher Relationship Specialty Start Date End Date Darius Eden MD [address] [place] [address] [phone] PCP - General Internal Medicine 05/21/21 Tip Sims, PharmD [address] [place] [address] [phone] Pharmacist Internal Medicine 03/20/22 [facility] Pharmacist Pharmacy 03/20/22 [facility] 12/31/23 documented as of this encounter
--- OUTSIDE RECORDS SUMMARY | 2024-06-08 14:41 | XMS_ITS | Encounter Summary ---
Author Organization [employer] Address [address] [facility] 7t [place] [address] Care Team Providers Care Cornice Maker Name Role Phone Darius Eden MD Primary Care Provide r Tip Sims PharmD Unavailable [phone] Reason for Visit * Reason Onset Date Comments Call Back Request 01/07/2023 Encounter Details Date Type Department Care Team ([facility] st Contact Info) Description 01/07/2023 Telephone [facility] MEDICINE [address] [place], [place] [phone] Darius Eden MD [address] [place], [place] [phone] Call Back Request Social History Tobacco Use [...] 10:30 AM EDT Office Visit [facility] OPTOMETRY [address] [place] [address] Tarka, Basia, OD [address] [place] [address] 07/14/2024 11:30 AM EDT Office Visit [facility] MEDICINE [address] [place] [address] Darius Eden MD [address] [place] [address] documented as of this encounter Visit Diagnoses Not on filedocumented in this encounter Additional Health Concerns Assessment Noted Time PHQ-9 Depression Total Score: 6 10/15/19 23 3:08 PM EDT documented as of this encounter Care Teams Cornice Maker Relationship Specialty Start Date End Date Darius Eden MD [address] [place] [address] PCP - General Internal Medicine 05/21/21 Tip Sims, Carlos [address] [place] [phone] Pharmacist Internal Medicine 03/20/22 [facility] Pharmacist Pharmacy 03/20/22 [facility] 12/31/23 documented as of this encounter
--- OUTSIDE RECORDS SUMMARY | 2024-06-08 14:41 | XMS_ITS | Encounter Summary ---
Author Organization [employer] Address [address] [facility] 7t [place] [address] Care Team Providers Care Ship Yard Electrical Person Name Role Phone Darius Eden MD Primary Care Provide r Tip Sims PharmD Unavailable [phone] Reason for Visit * Reason Onset Date Comments New Med Request 09/21/2023 Encounter Details Date Type Department Care Team ([facility] st Contact Info) Description 09/21/2023 Telephone [facility] MEDICINE [address] [place], [place] [phone] Darius Eden MD [address] [place], [place] [phone] New Med Request Social History Tobacco Use [...] Description 07/12/2024 10:30 AM EDT Office Visit [facility] OPTOMETRY [address] [place] [address] Basia Renteria, OD [address] [place] [address] 07/14/2024 11:30 AM EDT Office Visit [facility] MEDICINE [address] [place] [address] Darius Eden MD [address] [place] [address] documented as of this encounter Visit Diagnoses Not on filedocumented in this encounter Additional Health Concerns Assessment Noted Time PHQ-9 Depression Total Score: 6 10/15/19 23 3:08 PM EDT documented as of this encounter Care Teams Ship Yard Electrical Person Relationship Specialty Start Date End Date Darius Eden MD [address] [place] [address] PCP - General Internal Medicine 05/21/21 Tip Sims, DevoraD [address] [place] [phone] Pharmacist Internal Medicine 03/20/22 [facility] Pharmacist Pharmacy 03/20/22 [facility] 12/31/23 documented as of this encounter
--- OUTSIDE RECORDS SUMMARY | 2024-06-08 14:41 | XMS_ITS | Clinical Summary ---
Author Organization [employer] Address [address] [place] [address] 7t [place] [address] Care Team Providers Care Hobbing Press Operator Name Role Phone Darius Eden MD Primary Care Provide r Tip Sims PharmD Unavailable [phone] Allergies No known active allergies Medications Breo [...] mellitus with other specified complication, unspecified whether group home insulin use ([facility]) Take 1 tablet by mouth Once per day. 30 tablet 11 Active insulin pen needle (Easy Touch Pen [place]) 31G X 8 mm misc USE DIRECTED [...] mellitus with other specified complication, unspecified whether group home insulin use (CMS/[facility]) Inject 4.5 mg under the skin 1 (one) time per week. 2 mL 3 025 Active albuterol 108 (90 Base) MCG/ACT inhaler INHALE 2 PUFFS BY MOUTH EVERY 4 TO 6 HOURS NEEDED 18 g 2 025 Active insulin glargine (Basaglar KwikPen) 100 UNIT/ML pen Inject 80 Units under the skin at bedtime. 3 mL 12 025 2025 Active Blood Glucose Monitoring Suppl (TwoChop Verio Flex System) w/Device kitIndications :Type 2 diabetes mellitus without complication, unspecified whether group home insulin use ([facility]) TEST BLOOD SUGAR EVERY DAY 1 kit 025 Active Lancets (TwoChop Delica Plus [id number]) miscIndication s:Type 2 diabetes mellitus without complication, unspecified whether group home insulin use ([facility]) TEST BLOOD SUGAR THREE TIMES DAILY 100 each 1 025 Active glucose blood (WebtrekkTouch Verio) test stripIndicatio ns:Type 2 diabetes mellitus without complication, unspecified whether terminal makeup operator insulin use ([facility]) TEST BLOOD SUGAR THREE TIMES DAILY 100 strip 1 025 Active insulin lispro (HumaLOG KWIKPEN) 100 UNIT/ML injectionIndic ations:Type 2 diabetes mellitus without complication, with long-term current use of insulin ([facility]) INJECT 16 UNITS SUBCUTANEOUSLY PER SLIDING SCALE BEFORE MEALS DIRECTED 15 mL 2 025 Active zolpidem (Ambien) 10 MG tabletIndicati ons:Primary insomnia Take 1 tablet (10 mg) by mouth if needed at bedtime for sleep. 30 tablet 025 2024 Discontinued(I neffective) insulin lispro (HumaLOG KWIKPEN) 100 UNIT/ML injectionIndic ations:Type 2 diabetes mellitus without complication, with long-term current use of insulin ([facility]) INJECT 16 UNITS SUBCUTANEOUSLY PER SLIDING SCALE [...] 11:24 AM EST): Under the care of Java Developer Analyst at [facility] , last seen 01/13/2024 Assessment & Plan (02/24/2023 9:24 AM EST): Under the care of Java Developer Analyst at [facility] , [...] and Ezetimide 10 mg ( Prescribed by Java Developer Analyst ) last seen 09/24/2021 . LFTS 05/22/2021 [...] 02/09/2019 Essential hypertension 07/28/2011 Overview (06/23/2022): Joined [facility] 10/2021. Frequently misses appointments. Followed by cardiology. Hx of CABG/ ASVCD. Was switched to [facility] pharmacy with medboxes with improved adherence Current [...] Description 06/03/2024 2:15 PM EDT Office Visit [facility] MEDICINE [address] [place] [address] Avery Ceballos, EMILEE Type 2 diabetes mellitus with hyperglycemia, with long-term current use of insulin (CMS/HCC) (Primary Dx); Routine eye exam; Healthcare maintenance; Other insomnia; Impacted cerumen of right ear 06/03/2024 Travel 05/27/2024 Telephone [facility] MED[facility] [address] [place] [address] Darius Eden MD Durable Medical Equipment 05/25/2024 Refill [facility] [address] [place] [address] Darius Eden MD Type 2 diabetes mellitus without complication, with long-term current use of insulin (CMS/HCC) 05/24/2024 Patient Outreach [facility] [address] [place] [address] Darius Eden MD Pre-visit Planning (SDOH unable to reach LVM) 05/19/2024 Telephone [facility] MEDICINE [address] [place] [address] Darius Eden MD Chart Prep 05/11/2024 Patient Outreach [facility] [address] [place], [place] [phone] Darius Eden MD Pre-visit Planning (SDOH unable to reach, no voicemail.) 05/10/2024 9:40 AM EDT Office Visit [facility] OPTOMETRY [address] [place] [address] Sg, Lorie, OD Normal eye exam (Primary Dx) 05/10/2024 Telephone [facility] MEDICINE [address] [place] [address] Regi Tracy MA Chart Prep 05/10/2024 Travel 04/21/2024 Refill [facility] [address] [place] [address] Darius Eden MD Type 2 diabetes mellitus without complication, with long-term current use of insulin (CMS/HCC) 04/12/2024 11:15 AM EST Office Visit [facility] [address] [place] [address] Darius Eden MD Type 2 diabetes mellitus with hyperglycemia, with long-term current use of insulin ([facility]) (Primary Dx); Benign prostatic hyperplasia with lower [...] gangrene, with long-term current use of insulin (CMS/[facility]); Preventative health care; Primary insomnia; Encounter for immunization 04/12/2024 Travel 04/11/2024 Telephone [facility] [address] [facility] [place] [address] Demetrice Coronado RN Paperwork/Forms 04/08/2024 Refill [facility] [address] [place] [address] Darius Eden MD Type 2 diabetes mellitus without complication, unspecified whether terminal makeup operator insulin use (CMS/HCC) 04/05/2024 Refill [facility] [address] [facility] [place] [address] Demetrice Coronado RN 04/05/2024 Refill [facility] WALK-IN CENTER [address] [place] [address] Darius Eden MD 03/25/2024 Telephone [facility]INE [address] [place] [address] Darius Eden MD Chart Prep 03/16/2024 Refill [facility] [address] [place] [address] Adriana An FNP Type 2 diabetes mellitus without complication, with long-term current use of insulin (CMS/HCC); Type 2 diabetes mellitus with other specified complication, unspecified whether group home insulin use (CMS/HCC) 03/16/2024 Refill [facility] [address] [place] [address] Darius Eden MD Type 2 diabetes mellitus with other specified complication, unspecified whether terminal makeup operator insulin use ([facility]) 03/10/2024 Refill [facility] [address] [place] [address] Darius Eden MD Mild depression from Last [...] Office Visit [facility] OPTOMETRY [address] [place] [address] Basia Renteria, TAYLOR [address] [place] [address] 07/14/2024 11:30 AM EDT Office Visit [facility] MEDICINE [address] [place] [address] Darius Eden MD [address] [place] [address] Health Maintenance Due Date Last Done Comments CT Colonography 1948 FIT DNA/Cologuard 1948 FIT 1948 FOBT 1948 Sigmoidoscopy 1948 Eye Exam 1958 Zoster Vaccines (1 of 2) 1998 RSV Patients and Patients Aged 60 years or older (1 - 1-dose 75+ series) 08/20/2023 COVID-19 Vaccine ( season) 2023 06/10/2020, 05/13/2020 SDOH Screening 10/15/2024 10/16/2023 Depression Screening 11/18/2024 11/19/2023, 11/19/19 24 Diabetes: Hemoglobin A1C 12/06/2024 025, 06/03/2024, 04/12/2024, Additional history exists Alcohol/Substance Use Screening 04/12/2025 04/12/2024 Tobacco Screening 04/12/2025 04/12/2024 Diabetes: Foot Exam 06/03/2025 06/03/2024, 06/03/2024, 06/03/2024, Additional history exists Diabetes: Urine Protein Screening 06/06/2025 06/06/2024, 05/22/2021 Lipid Panel 06/06/2025 06/06/2024, 12/10, 05/22/2021 DTaP/Tdap/Td Vaccines (2 - Td or Tdap) [...] with long-term current use of insulin (CMS/HCC) LIPID PANEL, STANDARD Routine 06/06/2024 9:49 AM EDT Coronary arteriosclerosis HEMOGLOBIN A1C Routine 06/06/2024 9:49 AM EDT Type 2 diabetes mellitus with hyperglycemia, with long-term current use of insulin (CMS/HCC) PSA, SCREEN Routine 06/06/2024 9:49 AM EDT Benign prostatic hyperplasia with incomplete bladder emptying POCT GLYCATED HEMOGLOBIN, TOTAL Routine 06/03/2024 2:12 PM EDT Type 2 diabetes mellitus with hyperglycemia, with long-term current use of insulin (CMS/HCC) POCT GLUCOSE Routine 06/03/2024 2:10 PM EDT Type 2 diabetes mellitus with hyperglycemia, with long-term current use of insulin (CMS/HCC) POCT GLYCATED HEMOGLOBIN, TOTAL Routine 04/12/2024 10:57 AM EST Type 2 diabetes mellitus with hyperglycemia, with long-term current use of insulin (CMS/HCC) POCT GLUCOSE Routine 04/12/2024 10:52 AM EST Type 2 diabetes mellitus with hyperglycemia, with long-term current use of insulin (CMS/HCC) HM COLONOSCOPY Routine 06/25/2023 ZZZ HISTORICAL HEPATITIS C AB W/REFL TO HCV RNA, QN, PCR Routine 05/22/2021 8:46 AM EDT from Last 3 Months or Most Recently Relevant to Health Maintenance Results * PSA, Screen (06/06/2024 9:49 AM EDT) PSA, Total 3.03 <0.05 - 4.0 ng/mL [facility] Comment:PSA methodology: Joel Ricci i ChemiluminescentMicroparticle Immunoassay (CMIA) Blood Venous blood specimen / Unknown 06/06/2024 9:49 AM EDT 06/06/2024 10:57 AM EDT Darius Christian MD LAB BLOOD ORDERABLES Final Result Performing Organization Address [facility]/ZIP Co de Phone Number [facility] [address] [place] [address] [phone] * Albumin, Random Urine W/Creatinine (06/06/2024 9:49 AM EDT) Creatinine, Urine 387.16 mg/dL [facility] Microalbumin Urine 61.0 mg/L [facility] Microalbum Creatinine Ratio Ur 15.7 <30 ug/mg cr [facility] Comment:Albumin/Creatinine R atio Reference Ranges: Normal: < 30 ug/mg creatinine Microalbuminuria: 30 - 300 ug/mg creatinineClinical Albuminuria: > 300 ug/mg creatinine Urine (Urine, Random) 06/06/2024 9:49 AM EDT 06/06/2024 11:03 AM EDT us Avery Ceballos CNP LAB URINE ORDERABLES Cassidy l Result Performing Organization Address City/[facility]/ZIP Co de Phone Number [facility] [address] [place] [address] [phone] * (ABNORMAL) Hemoglobin A1c (06/06/2024 9:49 AM EDT) Hemoglobin A1c 6.2(H) <6.0 % [facility] Comment:Hemoglobin A1C Refer ence Range Adults: 4.8 - 6.0 % Non diabetic: < 6.0 % Goal: < 7.0 %Additional Action Suggested: > 8.0 %Note: Hemoglobin A1c results are invalid for patients with abnormal amounts of HbF. Blood transfusions may impact the HbA1c concentration in the patient sample. Estimated Average Glucose 131 mg/dL [facility] Comment:eAG = Estimated ave rage glucose which is %A1C expressed asaverage glucose, using the formula of the [id number]-FlvkqvfKrmogze Glucose study (ADAG), Diabetes Care, Vol.31,#8,Sep. 2007 Blood Venous blood specimen / Unknown 06/06/2024 9:49 AM EDT 06/06/2024 10:57 AM EDT us Darius Christian MD LAB BLOOD ORDERABLES Final Result [facility] [address] [place] [address] [phone] * Lipid Panel, Standard (06/06/2024 9:49 AM EDT) Triglycerides 83 <150 mg/dL [facility] Comment:Desirable Triglyceri de: less than 150 mg/dLBorderline High Triglyceride 150-199 mg/dLHigh Triglyceride: 200-499 mg/dLVery High Triglyceride: greater than or equal to 5OO mg/dL Cholesterol 101 <200 mg/dL [facility] Comment:Desirable Cholestero l: less than 200 mg/dLBorderline High Cholesterol: 200-239 mg/dLHigh Cholesterol: greater than 239 mg/dL LDL Cholesterol Calculated 44 <100 mg/dL [facility] Comment:Desirable LDL: less than 100 mg/dLNear Optimal/Above Optimal LDL: 110- 129 mg/dLBorderline High LDL: 130-159 mg/dLHigh LDL: 160-189 mg/dLVery High LDL: greater than or equal to 190 mg/dL HDL Cholesterol 41 >40 mg/dL [facility] Comment:Desirable HDL: great er than 40 mg/dL Note: This HDL assay may give artificially low results in patients with liver disease. Blood Venous blood specimen / Unknown 06/06/2024 9:49 AM EDT 06/06/2024 10:57 AM EDT Result [facility] Darius Christian MD LAB BLOOD ORDERABLES Final Result [facility] [address] [place] [address] [phone] * (ABNORMAL) POCT HGB A1C (06/03/2024 2:12 PM EDT) Only the most recent of2 resultswithin the time period is included. Pathologist [facility] Hemoglobin A1C 6.2(A) 4.0 - 6.0 % QC Media Lot # [id number] Lot# Expiration Date Blood 06/03/2024 2:12 PM EDT Result [facility] POINT OF CARE TEST ENTER/ EDIT ORDERABLES Final Result * POCT Glucose (06/03/2024 2:10 PM EDT) Only the most recent of2 resultswithin the time period is included. [facility] Glucose Blood, POC 158 60 - 200 mg/dL QC Media Lot # [id number] Lot# Expiration Date Blood Capillary blood specimen / Unknown 06/03/2024 2:10 PM EDT Result [facility] POINT OF CARE TEST ENTER/ EDIT ORDERABLES Final Result * Hm Colonoscopy (06/25/2023) [facility] Colonoscopy Normal Normal Impressions Darius Eden MD - 06/25/2023 Tubular Adenoma Result [facility] Provider HEALTH MAINTENANCE Final Result * HEPATITIS C AB W/REFL TO HCV RNA, QN, PCR (05/22/2021 8:46 AM EDT) [facility] HEPATITIS C ANTIBODY NON-REACT TABATHA NON-REACT TABATHA [facility] INDEX 0.01 <1.00 [facility] Comment: ?? HCV antibody was non-reactive. There is no laboratory ?? evidence of HCV infection. ?? In most cases, no further action is required. However, if recent HCV exposure is suspected, a test for HCV RNA (test code 56996) is suggested. ?? For additional information please refer to http://education.SendGrid/faq/XIQ95b4 (This link is being provided for informational/ educational purposes only.) ?? 05/22/2021 8:46 AM EDT us Darius Christian MD HISTORICAL/NON ORDERA BLE LABS Final Result [facility] [address]where [address] from Last 3 Months or Most Recently Relevant to Health Maintenance Insurance [place] [address] [place] [phone] [facility] STANDARD Care Teams Hobbing Press Operator Relationship Specialty Start Date End Date Darius Eden MD [address] [place] [address] PCP - General Internal Medicine 05/21/21 Tip Sims, DevoraD [address] [place] [phone] Pharmacist Internal Medicine 03/20/22 [facility] 03/20/22 [facility] 12/31/23
--- OUTSIDE RECORDS SUMMARY | 2024-06-08 14:41 | XMS_ITS | Encounter Summary ---
Author Organization [employer] Address [address] [place] [address] 7t [place] [address] Care Team Providers Care Systems Developer Name Role Phone Darius Eden MD Primary Care Provide r Tip Sims PharmD Unavailable [phone] Encounter Details Date Type Department Care Team (Late st Contact Info) Description 03/05/2022 Orders Only [facility] [address] [place] [address] Rosaline Lamb LPN Social History Tobacco Use [...] Description 07/12/2024 10:30 AM EDT Office Visit [facility] OPTOMETRY [address] [place] [address] Basia Renteria, OD [address] [place], [place] [phone] 07/14/2024 11:30 AM EDT Office Visit [facility] MEDICINE [address] [place], [place] [phone] Darius Eden MD [address] [place], [place] [phone] documented as of this encounter Visit Diagnoses Not on filedocumented in this encounter Care Teams Systems Developer Relationship Specialty Start Date End Date Darius Eden MD [address] [place] [phone] PCP - General Internal Medicine 05/21/21 Tip Sims, DevoraD [address] [place] [phone] Pharmacist Internal Medicine 03/20/22 [facility] 03/20/22 [facility] 12/31/23 documented as of this encounter
--- OUTSIDE RECORDS SUMMARY | 2024-06-08 14:41 | XMS_ITS | Encounter Summary ---
Author Organization [employer] Address [address] [facility] 7t [place] [address] Care Team Providers Care Access Service Representative Name Role Phone Darius Eden MD Primary Care Provide r Tip Sims PharmD Unavailable [phone] Reason for Visit * Reason Onset Date Comments Durable Medical Equipment 05/27/2024 Encounter Details Date Type Department Care Team ([facility] st Contact Info) Description 05/27/[address] [facility] MEDICINE [address] [place], [place] [phone] Darius Eden MD [address] [place], [place] [phone] Durable Medical Equipment Social History Tobacco Use [...] please advise them to contact Robert at [phone]. * Telephone Encounter - Sepideh Bryant - 06/01/2024 3:06 PM EDT DME RX for Shower chair generated and placed on providers desk for review and signature if agree. 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 If any questions contact [phone] documented in this encounter Plan of Treatment Upcoming Encounters Date Type Department Care Team (Late st Contact Info) Description 07/12/2024 10:30 AM EDT Office Visit [facility] OPTOMETRY [address] [place] [address] Dexter Basia, OD [address] [place] [address] 07/14/2024 11:30 AM EDT Office Visit [facility] MEDICINE [address] [place] [address] Darius Eden MD [address] [place] [address] documented as of this encounter Visit Diagnoses Not on filedocumented in this encounter Additional Health Concerns Assessment Noted Time PHQ-9 Depression Total Score: 0 11/19/19 24 10:20 AM EDT documented as of this encounter Care Teams Access Service Representative Relationship Specialty Start Date End Date Darius Eden MD [address] [place] [phone] PCP - General Internal Medicine 05/21/21 Tip Sims, DevoraD [address] [place] [phone] Pharmacist Internal Medicine 03/20/22 [facility] 03/20/22 [facility] 12/31/23 documented as of this encounter
--- OUTSIDE RECORDS SUMMARY | 2024-06-08 14:41 | XMS_ITS | Encounter Summary ---
Author Organization [employer] Address [address] [facility] 7t [place] [address] Care Team Providers Care Typewriter Assembly And Parts Inspector Name Role Phone Darius Eden MD Primary Care Provide r Tip Sims PharmD Unavailable [phone] Reason for Visit * Reason Comments Med Refill Encounter Details Date Type Department Care Team (Late st Contact Info) Description 02/11/2024 Refill [facility] [address] [place], [place] [phone] Darius Eden MD [address] [place], [place] [phone] Depressive disorder; Primary insomnia Social History Tobacco [...] 10:30 AM EDT Office Visit [facility] OPTOMETRY [address] [place] [address] Basia Renteria, OD [address] [place] [address] 07/14/2024 11:30 AM EDT Office Visit [facility] MED[facility] [address] [place] [address] Darius Eden MD [address] [place] [phone] documented as of this encounter Visit Diagnoses Diagnosis Depressive disorder Depressive disorder, not elsewhere classified Primary insomnia Persistent disorder of initiating or maintaining sleep documented in this encounter Additional Health Concerns Assessment Noted Time PHQ-9 Depression Total Score: 0 11/19/19 24 10:20 AM EDT documented as of this encounter Care Teams Typewriter Assembly And Parts Inspector Relationship Specialty Start Date End Date Darius Eden MD [address] [place] [phone] PCP - General Internal Medicine 05/21/21 Tip Sims, DevoraD [address] [place] [phone] Pharmacist Internal Medicine 03/20/22 [facility] 03/20/22 [facility] 12/31/23 documented as of this encounter
--- OUTSIDE RECORDS SUMMARY | 2024-06-08 14:41 | XMS_ITS | Encounter Summary ---
Author Organization [employer] Address [address] [facility] 7t [place] [address] Care Team Providers Care Airport Operations Officer Name Role Phone Darius Eden MD Primary Care Provide r Tip Sims PharmD Unavailable [phone] Reason for Visit * Reason Comments Med Change Request Encounter Details Date Type Department Care Team ([facility] st Contact Info) Description 11/20/2023 Refill [facility] [address] [place], [place] [phone] Darius Eden MD [address] [place], [place] [phone] Primary insomnia Social History Tobacco Use Types [...] Description 07/12/2024 10:30 AM EDT Office Visit [facility] OPTOMETRY [address] [place] [address] Basia Renteria, OD [address] [place] [address] 07/14/2024 11:30 AM EDT Office Visit [facility] [address] [place] [address] Darius Eden MD [address] [place] [address] documented as of this encounter Visit Diagnoses Diagnosis Primary insomnia Persistent disorder of initiating or maintaining sleep documented in this encounter Additional Health Concerns Assessment Noted Time PHQ-9 Depression Total Score: 0 11/19/19 24 10:20 AM EDT documented as of this encounter Care Teams Airport Operations Officer Relationship Specialty Start Date End Date Darius Eden MD [address] [place] [phone] PCP - General Internal Medicine 05/21/21 Tip Sims, PharmD [address] [place] [phone] Pharmacist Internal Medicine 03/20/22 [facility] 03/20/22 [facility] 12/31/23 documented as of this encounter
--- OUTSIDE RECORDS SUMMARY | 2024-06-08 14:41 | XMS_ITS | Encounter Summary ---
Author Organization [employer] Address [address] [facility] 7t [place] [address] Care Team Providers Care Java Core Developer Name Role Phone Darius Eden MD Primary Care Provide r Tip Sims PharmD Unavailable [phone] Reason for Visit * Reason Comments Med Refill Encounter Details Date Type Department Care Team ([facility] st Contact Info) Description 02/16/2024 Refill [facility] [address] [place] [address] Darius Eden MD [address] [place] [address] Primary insomnia Social History Tobacco Use Types [...] 10:30 AM EDT Office Visit [facility] OPTOMETRY [address] [place] [address] Basia Renteria, OD [address] [place] [address] 07/14/2024 11:30 AM EDT Office Visit [facility] [address] [place] [address] Darius Eden MD [address] [place] [phone] documented as of this encounter Visit Diagnoses Diagnosis Primary insomnia Persistent disorder of initiating or maintaining sleep documented in this encounter Additional Health Concerns Assessment Noted Time PHQ-9 Depression Total Score: 0 11/19/19 24 10:20 AM EDT documented as of this encounter Care Teams Java Core Developer Relationship Specialty Start Date End Date Darius Eden MD [address] [place] [phone] PCP - General Internal Medicine 4/12/22 Tip Sims, PharmD [address] [place] [phone] Pharmacist Internal Medicine 03/20/22 [facility] 03/20/22 [facility] 12/31/23 documented as of this encounter
--- OUTSIDE RECORDS SUMMARY | 2024-06-08 14:41 | XMS_ITS | Encounter Summary ---
Author Organization [employer] Address [address] [facility] 7t [place] [address] Care Team Providers Care Reel Tender Name Role Phone Darius Eden MD Primary Care Provide r Tip Sims PharmD Unavailable [phone] Reason for Visit * Reason Comments Med Refill Encounter Details Date Type Department Care Team (Late st Contact Info) Description 12/05/2022 Refill [facility] MED & PEDS [address] [place], [place] [phone] Darius Eden MD 230 [place], [place] [phone] Heartburn Social History Tobacco Use Types Packs/Day [...] 07/12/2024 10:30 AM EDT Office Visit [facility] OPTOMETRY [address] [place] [address] TarkaBasia, OD 267 [place] [address] 07/14/2024 11:30 AM EDT Office Visit [facility] MEDICINE 230 [place] [address] Darius Eden MD [address] [place] [address] documented as of this encounter Visit Diagnoses Diagnosis Heartburn documented in this encounter Additional Health Concerns Assessment Noted Time PHQ-9 Depression Total Score: 6 10/15/19 23 3:08 PM EDT documented as of this encounter Care Teams Reel Tender Relationship Specialty Start Date End Date Darius Eden MD [address] [place] [address] PCP - General Internal Medicine 05/21/21 Tip Sims, Carlos [address] [place] [address] Pharmacist Internal Medicine 03/20/22 [facility] 03/20/22 [facility] 11/21/24 documented as of this encounter
--- OUTSIDE RECORDS SUMMARY | 2024-06-08 14:41 | XMS_ITS | Clinical Summary ---
Author Organization [facility] Address [address] [place] [address] Care Team Providers Care Operating Room Aide Name Role Phone Lauren Whyte Primary Care Provider + Surgical History Surgery Date Site/Laterality Comments CARPAL TUNNEL RELEASE PROCEDURE: MD NEUROPLASTY &/TRANSPOS MEDIAN NRV CARPAL TUNNE COLONOSCOPY [...] 03/23/2012 DX:Anxiety Depression 03/23/2012 DX:Depression Diabetic cataract ([facility] V 24, [facility] V28) 09/07/2014 DX:Diabetic cataract ([facility]) GERD (gastroesophageal reflux disease) 01/12/2012 DX:GERD (gastroesophageal reflux disease) Type II or unspecified type diabetes mellitus with ophthalmic manifestations, uncontrolled(250.52) ([facility] V24, [facility] V28) 06/26/2013 DX:Type II or unspecified t ype diabetes mellitus with ophthalmic manifestations, uncontrolled(250.52) ([facility]) Tinnitus of right ear 12/07/2012 DX:Tinnitu s of right ear PVD (peripheral vascular dis ease) ([facility] V24) 06/22/2014 DX:PVD (peripheral vascular disease) ([facility]) Obstructive sleep apnea 05/27/2013 DX:Obstr uctive sleep apnea; COMMENT: Dr. Thornton, neurologist at [facility] night study 02/06/13: AHI 102.4, O2 [...] Elbows, knees Asthma 03/08/2012 DX:Asthma Atherosclerosis of [place] co ronary artery of [place] heart with angina pectoris (CMS/HCC V24) 06/12/2015 DX:Atherosclerosis of [place] coronary artery of [place] heart with angina pectoris (HCC) Balanitis 05/25/2012 [...] age to complete this topic Care Teams Operating Room Aide Relationship Specialty Start Date End Date Lauren Whyte PA PCP - General Internal Medicine 01/24/21
--- OUTSIDE RECORDS SUMMARY | 2024-06-08 14:41 | XMS_ITS | Encounter Summary ---
Author Organization [employer] Address [address] [facility] 7 [place] [address] Care Team Providers Care Warp Worker Name Role Phone Darius Eden MD Primary Care Provide r Tip Sims PharmD Unavailable [phone] Reason for Visit * Reason Onset Date Comments Med Refill 10/26/2023 Encounter Details Date Type Department Care Team (Late st Contact Info) Description 10/26/2023 Telephone [facility] MEDICINE 230 [place], [place] [phone] Darius Eden MD 230 [place], [place] [phone] Med Refill Social History Tobacco Use Types [...] 500 MG tablet To be sent to: [facility] - [place], [place] - [address] [facility] documented in this encounter Plan of Treatment Upcoming Encounters Date Type Department Care Team (Late st Contact Info) Description 07/12/2024 10:30 AM EDT Office Visit [facility] OPTOMETRY [address] [place] [address] Basia Renteria, TAYLOR [address] [place] [address] 07/14/2024 11:30 AM EDT Office Visit [facility] MEDICINE 230 [place] [address] Darius Eden MD 230 [place] [address] documented as of this encounter Visit Diagnoses Not on filedocumented in this encounter Additional Health Concerns Assessment Noted Time PHQ-9 Depression Total Score: 6 10/15/19 23 3:08 PM EDT documented as of this encounter Care Teams Warp Worker Relationship Specialty Start Date End Date Darius Eden MD 230 [place], [place] [phone] PCP - General Internal Medicine 05/21/21 Tip Sims, DevoraD 230 [place], [place] [phone] Pharmacist Internal Medicine 03/20/22 [facility] 03/20/22 [facility] 12/31/23 documented as of this encounter
== END 2024-06-08 14:04 | disposition home or self-care (01) ==
LOC: HO.HPS 13:20
PROVIDERS: PCP Internal Medicine; Visit Provider Internal Medicine Pulmonary Disease
DX: J45.50 Severe persistent asthma, uncomplicated (principal); Z91.09 Other allergy status, other than to drugs and biological substances; G47.33 Obstructive sleep apnea (adult) (pediatric); Z99.89 Dependence on other enabling machines and devices; K21.9 Gastro-esophageal reflux disease without esophagitis
CPT/HCPCS: 99214; G2211

== ENCOUNTER → 2024-06-08 13:19 | Outpatient (BNVA) | payer MEDICARE, MEDICAID, SELFPAY | PROVIDERS: PCP Internal Medicine; Visit Provider Internal Medicine Pulmonary Disease | DX: J45.50 Severe persistent asthma, uncomplicated (principal); K21.9 Gastro-esophageal reflux disease without esophagitis; G47.33 Obstructive sleep apnea (adult) (pediatric); Z99.89 Dependence on other enabling machines and devices; Z91.09 Other allergy status, other than to drugs and biological substances | CPT/HCPCS: 99212 ==

== ENCOUNTER 2024-06-13 12:36 | Outpatient (AMB) | payer MEDICARE, MEDICAID, SELFPAY ==
[2024-06-13 12:47] VITALS: BMI 32.0
--- NOTE | 2024-06-13 12:47 | A.OFFVIS_ITS ---
Vital Signs 06/13/24 12:47 Height 5 ft 6 in Weight 198 lb BMI 32.0 Intake Visit Reasons: Inj- B/L knee OA, right knee inj 09/28/23 Intake Note: Len is a 73 year old male who presents today for a follow up visit for his osteoarthritis of his bilateral knees s/p right knee injections on 09/28/23. Patient reports interest on bilateral knee injection. He shares his left knee has been bothering him more lately. [employer] Finisher Forging Required: Yes Die Finisher Forging Language: Direct Care Worker Services: Die Finisher Forging Present Die Finisher Forging Name: FRIEDA Patel/LM Allergies No Known Allergies [No Known Allergies*] Allergy (Verified 06/13/24 12:47) HPI HPI Inj- B/L knee OA, right knee inj 09/28/23: Details: Len is a 73 year old male who presents today for a follow up visit for his o steoarthritis of his bilateral knees s/p right knee injections on 09/28/23. Patient reports interest on bilateral knee injection. He shares his left knee has been bothering him more lately. [facility] Medical History Osteoarthritis of knees, bilateral Type 2 diabetes mellitus with unspecified complications Sepsis Hyperthyroidism Multinodular thyroid HLD (hyperlipidemia) HTN (hypertension) Obesity NSTEMI (non-ST elevated myocardial infarction) CAD (coronary artery disease) Diabetes mellitus Myocardial infarct Surgical History History of esophagogastroduodenoscopy (EGD) Hx of colonoscopy Hx of ultrasound guided needle biopsy Hx of CABG (~07/2016) Family History Mother Cardiovascular disease Father Medical history unknown Sister Cancer Brother Cancer Social History Household Members: Family Housing: Apartment Are you a primary care analyst to a significant other at home: No Do you presently have visiting nurse or other home services: No Alcohol intake: former Patient Tobacco Use Status: Former Tobacco user Second Hand Smoke Exposure: No service: No Current occupational status: unemployed Review of Systems Const All systems reviewed & are unremarkable except as noted in HPI and below Physical Exam Vital Signs: BMI result Body Mass Index 32.0 Extrem Other: On inspection, there is noted edema of the anterior left knee, particularly in the joint line and suprapatellar spaces No ecchymosis, erythema noted No evidence of infection No lacerations, abrasions, open areas noted Patient reports diffuse tenderness to palpation of the right knee, but pain is worst in the suprapatellar area in the medial and lateral anterior joint lines Patient is able to actively extend the knee to approximately 10-15 degrees, but is restricted due to pain Patient is able to actively flex the knee to 130 degrees without difficulty Passive range of motion full and intact Patient is able to hold the knee in full extension when in his passively extended Distal sensation intact Capillary refill brisk Office Procedures AMB Joint Injection/Aspiration Joint Injection/Aspiration Primary Site: left knee Prep: site was prepped using aseptic technique, ethochloride spray was applied and injection warnings given Injected: 40 mg of, DepoMedrol, with 8 mL of and 1% plain lidocaine Procedure: The patient tolerated the procedure well and there was some relief with the local anesthesia Coding - Large joint Procedure code (CPT) selection complete Assessment & Plan Assessment & Plan (1) Bilateral primary osteoarthritis of knee: Code(s): M17.0 - Bilateral primary osteoarthritis of knee Category: Medical Plan 1. Left knee osteoarthritis Patient is educated about this condition Patient is educated about the typical treatment course The risks and benefits of a steroid injection including but not limited to risk of damage to blood vessels, nerves, tendons, infection, skin bleaching, failure to improve symptoms, increased pain, and possible need for further injections or other intervention were discussed with the patient and the patient wishes to proceed with the steroid injection. Once consent was obtained, I aseptically prepped the area over the anterolateral joint line of the left knee. I then injected the area over the lateral epicondyle with a combination of 40 mg of dexamethasone and 8 mL of 1% lidocaine. The patient tolerated the procedure well with no complications. If the patient continues to experience symptoms over the following few weeks or months, they can make an appointment to return and discuss alternative treatment measures, such as physical therapy. Follow-up prn Coding Level of Care Code Est Pt Level 3 (46029) Diagnoses Bilateral primary osteoarthritis of knee M17.0 CPT Codes Coding - Large joint: 93996 - Large joint ([id number])
--- OUTSIDE RECORDS SUMMARY | 2024-06-13 14:05 | XMS_ITS | Encounter Summary ---
Author Organization [employer] [facility] Address [address] [place] [address] 7t [place] [address] Care Team Providers Care Headstart Teacher Name Role Phone Darius Eden MD Primary Care Provide r Tip Sims PharmD Unavailable [phone] Encounter Details Date Type Department Care Team (Late st Contact Info) Description 03/05/2022 Orders Only [facility] MEDICINE [address] [place] [address] Britney Burton LPN Social History Tobacco Use [...] Office Visit [facility] OPTOMETRY [address], [place] [phone] Basia Renteria, TAYLOR 267 [place], [place] [phone] 07/14/2024 11:30 AM EDT Office Visit [facility] MEDICINE 230 [place] [address] Darius Eden MD 230 [place] [address] documented as of this encounter Visit Diagnoses Not on filedocumented in this encounter Care Teams Headstart Teacher Relationship Specialty Start Date End Date Darius Eden MD 230 [place] [address] PCP - General Internal Medicine 05/21/21 Tip Sims, DevoraD 230 [place] [address] Pharmacist Internal Medicine 03/20/22 [facility] 03/20/22 [facility] 12/31/23 documented as of this encounter
--- OUTSIDE RECORDS SUMMARY | 2024-06-13 14:05 | XMS_ITS | Encounter Summary ---
Author Organization [employer] Address [address] [place] [address] 7t [place] [address] Care Team Providers Care Bulk Pigment Reducer Name Role Phone Darius Eden MD Primary Care Provide r Tip Sims PharmD Unavailable [phone] Encounter Details Date Type Department Care Team (Late st Contact Info) Description 03/05/2022 Orders Only [facility] CHC MED & PEDS 505 [place] [address] Rosaline Lamb LPN Social History Tobacco Use [...] 10:30 AM EDT Office Visit [facility] OPTOMETRY 267 [place] [address] Basia Renteria, OD 267 [place], [place] [phone] 07/14/2024 11:30 AM EDT Office Visit [facility] MEDICINE 230 [place], [place] [phone] Darius Eden MD 230 [place], [place] [phone] documented as of this encounter Visit Diagnoses Not on filedocumented in this encounter Care Teams Bulk Pigment Reducer Relationship Specialty Start Date End Date Darius Eden MD [address] [place] [address] PCP - General Internal Medicine 05/21/21 Tip Sims, DevoraD [address] [place] [address] Pharmacist Internal Medicine 03/20/22 [facility] 03/20/22 [facility] 12/31/23 documented as of this encounter
--- OUTSIDE RECORDS SUMMARY | 2024-06-13 14:05 | XMS_ITS | Encounter Summary ---
Author Organization [employer] Address [address] [place] [address] 7t [place] [address] Care Team Providers Care Environmental Lawyer Name Role Phone Darius Eden MD Primary Care Provide r Tip Sims PharmD Unavailable [phone] Encounter Details Date Type Department Care Team (Late st Contact Info) Description 03/12/2022 Telephone [facility] MEDICINE 230 [place] [address] Darius Eden MD [address] [place] [address] Social History Tobacco Use Types Packs/Day Years [...] Description 07/12/2024 10:30 AM EDT Office Visit [facility] OPTOMETRY 267 [place] [address] Basia Renteria, OD 267 [place] [address] 07/14/2024 11:30 AM EDT Office Visit [facility] MEDICINE 230 [place] [address] Darius Eden MD [address] [place] [address] documented as of this encounter Visit Diagnoses Not on filedocumented in this encounter Care Teams Environmental Lawyer Relationship Specialty Start Date End Date Darius Eden MD [address] [place] [address] [phone] PCP - General Internal Medicine 05/21/21 Tip Sims, PharmD [address] [place] [address] [phone] Pharmacist Internal Medicine 03/20/22 [facility] 03/20/22 [facility] 12/31/23 documented as of this encounter
--- OUTSIDE RECORDS SUMMARY | 2024-06-13 14:05 | XMS_ITS | Encounter Summary ---
Author Organization [employer] Address [address] [facility] 7t [place] [address] Care Team Providers Care Curber Name Role Phone Darius Eden MD Primary Care Provide r Tip Sims PharmD Unavailable [phone] Reason for Visit * Reason Comments Med Refill Encounter Details Date Type Department Care Team ([facility] st Contact Info) Description 01/19/2023 Refill [facility] MEDICINE 230 [place], [place] [phone] Darius Eden MD 230 [place], [place] [phone] Mild depression Social History Tobacco Use Types [...] 07/12/2024 10:30 AM EDT Office Visit [facility] OPTOMETRY 267 [place] [address] TarkaBasia, OD 267 [place] [address] 07/14/2024 11:30 AM EDT Office Visit [facility] MEDICINE 230 [place] [address] Darius Eden MD [address] [place] [address] documented as of this encounter Visit Diagnoses Diagnosis Mild depression Depressive disorder, not elsewhere classified documented in this encounter Additional Health Concerns Assessment Noted Time PHQ-9 Depression Total Score: 6 10/15/19 23 3:08 PM EDT documented as of this encounter Care Teams Curber Relationship Specialty Start Date End Date Darius Eden MD [address] [place] [address] PCP - General Internal Medicine 05/21/21 Tip Sims, DevoraD [address] [place] [address] Pharmacist Internal Medicine 03/20/22 [facility] 03/20/22 [facility] 12/31/23 documented as of this encounter
--- OUTSIDE RECORDS SUMMARY | 2024-06-13 14:05 | XMS_ITS | Encounter Summary ---
Author Organization [employer] Address [address] [facility] 7t [place] [address] Care Team Providers Care Lang Interpreter Name Role Phone Darius Eden MD Primary Care Provide r Tip Sims PharmD Unavailable [phone] Reason for Visit * Reason Onset Date Comments Med Refill 10/26/2023 Encounter Details Date Type Department Care Team (Late st Contact Info) Description 10/26/2023 Telephone [facility] MEDICINE 230 [place], [place] [phone] Darius Eden MD 230 [place], [place] [phone] Med Refill Social History Tobacco Use Types [...] 500 MG tablet To be sent to: [facility] - [place], [place] - 230 [facility] documented in this encounter Plan of Treatment Upcoming Encounters Date Type Department Care Team (Late st Contact Info) Description 07/12/2024 10:30 AM EDT Office Visit [facility] OPTOMETRY [address] [place] [address] Basia Renteria, TAYLOR [address] [place] [address] 07/14/2024 11:30 AM EDT Office Visit [facility] MEDICINE 230 [place] [address] Darius Eden MD 230 [place] [address] documented as of this encounter Visit Diagnoses Not on filedocumented in this encounter Additional Health Concerns Assessment Noted Time PHQ-9 Depression Total Score: 6 10/15/19 23 3:08 PM EDT documented as of this encounter Care Teams Lang Interpreter Relationship Specialty Start Date End Date Darius Eden MD 230 [place], [place] [phone] PCP - General Internal Medicine 05/21/21 Tip Sims, DevoraD 230 [place], [place] [phone] Pharmacist Internal Medicine 03/20/22 [facility] 03/20/22 [facility] 12/31/23 documented as of this encounter
--- OUTSIDE RECORDS SUMMARY | 2024-06-13 14:05 | XMS_ITS | Encounter Summary ---
Author Organization [employer] Address [address] [facility] 7t [place] [address] Care Team Providers Care Molded Parts Inspector Name Role Phone Darius Eden MD Primary Care Provide r Tip Sims PharmD Unavailable [phone] Reason for Visit * Reason Comments Med Change Request Encounter Details Date Type Department Care Team ([facility] st Contact Info) Description 11/20/2023 Refill [facility] MEDICINE 230 [place], [place] [phone] Darius Eden MD 230 [place], [place] [phone] Primary insomnia Social History Tobacco Use Types [...] Description 07/12/2024 10:30 AM EDT Office Visit [facility] OPTOMETRY [address] [place] [address] Basia Renteria, OD 267 [place] [address] 07/14/2024 11:30 AM EDT Office Visit [facility] MEDICINE 230 [place] [address] Darius Eden MD 230 [place] [address] documented as of this encounter Visit Diagnoses Diagnosis Primary insomnia Persistent disorder of initiating or maintaining sleep documented in this encounter Additional Health Concerns Assessment Noted Time PHQ-9 Depression Total Score: 0 11/19/19 24 10:20 AM EDT documented as of this encounter Care Teams Molded Parts Inspector Relationship Specialty Start Date End Date Darius Eden MD [address] [place] [address] PCP - General Internal Medicine 05/21/21 Tip Sims, PharmD [address] [place] [address] Pharmacist Internal Medicine 03/20/22 [facility] 03/20/22 [facility] 12/31/23 documented as of this encounter
--- OUTSIDE RECORDS SUMMARY | 2024-06-13 14:05 | XMS_ITS | Encounter Summary ---
Author Organization [employer] Address [address] [facility] 7t [place] [address] Care Team Providers Care Physical Testing Supervisor Name Role Phone Darius Eden MD Primary Care Provide r Tip Sims PharmD Unavailable [phone] Reason for Visit * Reason Comments Med Refill Encounter Details Date Type Department Care Team ([facility] st Contact Info) Description 03/09/2023 Refill [facility] MEDICINE 230 [place], [place] [phone] Darius Eden MD 230 [place], [place] [phone] Acute cough Social History Tobacco Use Types [...] 10:30 AM EDT Office Visit [facility] OPTOMETRY 267 [place] [address] TarkaBasia, OD 267 [place] [address] 07/14/2024 11:30 AM EDT Office Visit [facility] MEDICINE 230 [place] [address] Darius Eden MD [address] [place] [address] documented as of this encounter Visit Diagnoses Diagnosis Acute cough documented in this encounter Additional Health Concerns Assessment Noted Time PHQ-9 Depression Total Score: 6 10/15/19 23 3:08 PM EDT documented as of this encounter Care Teams Physical Testing Supervisor Relationship Specialty Start Date End Date Darius Eden MD [address] [place] [address] PCP - General Internal Medicine 05/21/21 Tip Sims, Carlos [address] [place] [address] Pharmacist Internal Medicine 03/20/22 [facility] 03/20/22 [facility] 12/31/23 documented as of this encounter
--- OUTSIDE RECORDS SUMMARY | 2024-06-13 14:05 | XMS_ITS | Encounter Summary ---
Author Organization [employer] Address [address] [facility] 7t [place] [address] Care Team Providers Care Insurance Defense Paralegal Name Role Phone Darius Eden MD Primary Care Provide r Tip Sims PharmD Unavailable [phone] Reason for Visit * Reason Onset Date Comments Call Back Request 01/07/2023 Encounter Details Date Type Department Care Team ([facility] st Contact Info) Description 01/07/2023 Telephone [facility] MEDICINE 230 [place], [place] [phone] Darius Eden MD 230 [place], [place] [phone] Call Back Request Social History Tobacco Use [...] 10:30 AM EDT Office Visit [facility] OPTOMETRY [address] [place] [address] Tarka, Basia, OD 267 [place] [address] 07/14/2024 11:30 AM EDT Office Visit [facility] MEDICINE 230 [place] [address] Darius Eden MD [address] [place] [address] documented as of this encounter Visit Diagnoses Not on filedocumented in this encounter Additional Health Concerns Assessment Noted Time PHQ-9 Depression Total Score: 6 10/15/19 23 3:08 PM EDT documented as of this encounter Care Teams Insurance Defense Paralegal Relationship Specialty Start Date End Date Darius Eden MD [address] [place] [address] PCP - General Internal Medicine 05/21/21 Tip Sims, Carlos [address] [place] [address] Pharmacist Internal Medicine 03/20/22 [facility] 03/20/22 [facility] 12/31/23 documented as of this encounter
--- OUTSIDE RECORDS SUMMARY | 2024-06-13 14:05 | XMS_ITS | Encounter Summary ---
Author Organization [employer] Address [address] [facility] 7t [place] [address] Care Team Providers Care Brand Advisor Name Role Phone Darius Eden MD Primary Care Provide r Tip Sims PharmD Unavailable [phone] Reason for Visit * Reason Comments Med Refill Encounter Details Date Type Department Care Team ([facility] st Contact Info) Description 02/16/2024 Refill [facility] CHC MED & PEDS [address] [place] [address] Darius Eden MD 230 [place] [address] Primary insomnia Social History Tobacco Use Types [...] Description 07/12/2024 10:30 AM EDT Office Visit [facility] OPTOMETRY [address] [place] [address] Basia Renteria, OD 267 [place] [address] 07/14/2024 11:30 AM EDT Office Visit [facility] MEDICINE 230 [place] [address] Darius Eden MD [address] [place] [address] documented as of this encounter Visit Diagnoses Diagnosis Primary insomnia Persistent disorder of initiating or maintaining sleep documented in this encounter Additional Health Concerns Assessment Noted Time PHQ-9 Depression Total Score: 0 11/19/19 24 10:20 AM EDT documented as of this encounter Care Teams Brand Advisor Relationship Specialty Start Date End Date Darius Eden MD [address] [place] [address] PCP - General Internal Medicine 4/12/22 Tip Sims, PharmD [address] [place] [address] Pharmacist Internal Medicine 03/20/22 [facility] 03/20/22 [facility] [place] 12/31/23 documented as of this encounter
--- OUTSIDE RECORDS SUMMARY | 2024-06-13 14:05 | XMS_ITS | Clinical Summary ---
Author Organization [facility] Address [address] [place] [address] Care Team Providers Care Brewery Pumper Name Role Phone Lauren Whyte Primary Care [...] 03/23/2012 DX:Anxiety Depression 03/23/2012 DX:Depression Diabetic cataract ([facility] V 24, [facility] V28) 09/07/2014 DX:Diabetic cataract ([facility]) GERD (gastroesophageal reflux disease) 01/12/2012 DX:GERD (gastroesophageal reflux disease) Type II or unspecified type diabetes mellitus with ophthalmic manifestations, uncontrolled(250.52) ([facility] V24, [facility] V28) 06/26/2013 DX:Type II or unspecified t ype diabetes mellitus with ophthalmic manifestations, uncontrolled(250.52) ([facility]) Tinnitus of right ear 12/07/2012 DX:Tinnitu s of right ear PVD (peripheral vascular dis ease) ([facility] V24) 06/22/2014 DX:PVD (peripheral vascular disease) ([facility]) Obstructive sleep apnea 05/27/2013 DX:Obstr uctive sleep apnea; COMMENT: Dr. Thornton, neurologist at [facility] night study 02/06/13: AHI 102.4, O2 [...] Elbows, knees Asthma 03/08/2012 DX:Asthma Atherosclerosis of [place] co ronary artery of [place] heart with angina pectoris (CMS/HCC V24) 06/12/2015 DX:Atherosclerosis of [place] coronary artery of [place] heart with angina pectoris (HCC) Balanitis 05/25/2012 [...] age to complete this topic Care Teams Brewery Pumper Relationship Specialty Start Date End Date Lauren Whyte PA PCP - General Internal Medicine 01/24/21
--- OUTSIDE RECORDS SUMMARY | 2024-06-13 14:05 | XMS_ITS | Clinical Summary ---
Author Organization [employer] Address [address] [place] [address] 7[address] [place] [address] Care Team Providers Care Paper Finisher Name Role Phone Darius Eden MD Primary Care Provide r Tip Sims PharmD Unavailable [phone] Allergies No known active allergies Medications Breo [...] mellitus with other specified complication, unspecified whether intermediate insulin use ([facility]) Take 1 tablet by mouth Once per day. 30 tablet 11 Active insulin pen needle (Easy Touch Pen [place]) 31G X 8 mm misc USE DIRECTED [...] mellitus with other specified complication, unspecified whether intermediate insulin use ([facility]) Inject 4.5 mg under the [...] 025 2025 Active Blood Glucose Monitoring Suppl ([employer] Verio Flex System) w/Device kitIndications :Type 2 diabetes mellitus without complication, unspecified whether intermediate insulin use ([facility]) TEST BLOOD SUGAR EVERY DAY 1 kit 025 Active Lancets ([employer] Delica Plus [id number]) miscIndication s:Type 2 diabetes mellitus without complication, unspecified whether intermediate insulin use ([facility]) TEST BLOOD SUGAR THREE TIMES DAILY 100 each 1 025 Active glucose blood ([employer]Touch Verio) test stripIndicatio ns:Type 2 diabetes mellitus without complication, unspecified whether intermediate insulin use ([facility]) TEST BLOOD SUGAR THREE TIMES DAILY 100 strip 1 025 Active insulin lispro (HumaLOG KWIKPEN) 100 UNIT/ML injectionIndic ations:Type 2 diabetes mellitus without complication, with long-term current use of insulin ([facility]) INJECT 16 UNITS SUBCUTANEOUSLY PER SLIDING SCALE BEFORE MEALS DIRECTED 15 mL 2 025 Active zolpidem (Ambien) 10 MG tabletIndicati ons:Primary insomnia Take 1 tablet (10 mg) by mouth if needed at bedtime for sleep. 30 tablet 025 2024 Discontinued(I neffective) insulin lispro (HumaLOG KWIKPEN) 100 UNIT/ML injectionIndic ations:Type 2 diabetes mellitus without complication, with long-term current use of insulin ([facility]) INJECT 16 UNITS SUBCUTANEOUSLY PER [...] 11:24 AM EST): Under the care of Colon And Rectal Surgeon at [facility] , last seen 01/13/2024 Assessment & Plan (02/24/2023 9:24 AM EST): Under the care of Colon And Rectal Surgeon at [facility] , last seen 01/29/2023 Assessment & Plan [...] and Ezetimide 10 mg ( Prescribed by Colon And Rectal Surgeon ) last seen 09/24/2021 . LFTS 05/22/2021 [...] Essential hypertension 07/28/2011 Overview (06/23/2022): Joined [facility] 10/2021. Frequently misses appointments. Followed by cardiology. Hx of CABG/ ASVCD. Was switched to [facility] pharmacy with medboxes with improved adherence Current [...] Patient here for a HDF Admitted to [facility] for prostate and rectal pain. PMH significant [...] Description 06/03/2024 2:15 PM EDT Office Visit [facility] [address] [place] [address] Avery Ceballos, EMILEE Type 2 diabetes mellitus with hyperglycemia, with long-term current use of insulin (CMS/HCC) (Primary Dx); Routine eye exam; Healthcare maintenance; Other insomnia; Impacted cerumen of right ear 06/03/2024 Travel 05/27/2024 Telephone [facility] [address] [place] [address] Darius Eden MD Durable Medical Equipment 05/25/2024 Refill [facility] [address] [place] [address] Darius Eden MD Type 2 diabetes mellitus without complication, with long-term current use of insulin (CMS/HCC) 05/24/2024 Patient Outreach [facility] [address] [place] [address] Darius Eden MD Pre-visit Planning (SDOH unable to reach LVM) 05/19/2024 Telephone [facility] [address] [place] [address] Darius Eden MD Chart Prep 05/11/2024 Patient Outreach [facility] [address] [place], [place] [phone] Darius Eden MD Pre-visit Planning (SDOH unable to reach, no voicemail.) 05/10/2024 9:40 AM EDT Office Visit [facility] [address] [place] [address] Sg, Lorie, OD Normal eye exam (Primary Dx) 05/10/2024 Telephone [facility] [address] [place] [address] Regi Tracy MA Chart Prep 05/10/2024 Travel 04/21/2024 Refill [facility] [address] [place] [address] Darius Eden MD Type 2 diabetes mellitus without complication, with long-term current use of insulin (CMS/HCC) 04/12/2024 11:15 AM EST Office Visit [facility] [address] [place] [address] Darius Eden MD Type 2 diabetes mellitus with hyperglycemia, with long-term current use of insulin ([facility]) (Primary Dx); Benign prostatic hyperplasia [...] gangrene, with long-term current use of insulin ([facility]); Preventative health care; Primary insomnia; Encounter for immunization 04/12/2024 Travel 04/11/2024 Telephone [facility] [address] [facility] [place] [address] Demetrice Coronado RN Paperwork/Forms 04/08/2024 Refill [facility] [address] [place] [address] Darius Eden MD Type 2 diabetes mellitus without complication, unspecified whether long term acute care registered nurse insulin use (CMS/HCC) 04/05/2024 Refill [facility] [address] [facility] [place] [address] Demetrice Coronado RN 04/05/2024 Refill [facility] [address] [place] [address] Darius Eden MD 03/25/2024 Telephone [facility] [address] [place] [address] Darius Eden MD Chart Prep 03/16/2024 Refill [facility] [address] [place] [address] Adriana An FNP Type 2 diabetes mellitus without complication, with long-term current use of insulin (CMS/HCC); Type 2 diabetes mellitus with other specified complication, unspecified whether intermediate insulin use (CMS/HCC) 03/16/2024 Refill [facility] [address] [place] [address] Darius Eden MD Type 2 diabetes mellitus with other specified complication, unspecified whether long term acute care registered nurse insulin use ([facility]) from Last 3 Months Immunizations Name Administration [...] Office Visit [facility] [address] [place] [address] Tarka, Basia, OD [address] [place] [address] 07/14/2024 11:30 AM EDT Office Visit [facility] [address] [place] [address] Darius Eden MD [address] [place] [address] Health Maintenance Due Date Last Done Comments CT Colonography 1948 FIT DNA/Cologuard 1948 FIT 1948 FOBT 1948 Sigmoidoscopy 1948 Eye Exam 1958 Zoster Vaccines (1 of 2) 1998 RSV Patients and Patients Aged 60 years or older (1 - 1-dose 75+ series) 08/20/2023 COVID-19 Vaccine ( - season) 2023 06/10/2020, 05/13/2020 SDOH Screening 10/15/2024 [...] PSA, Total 3.03 <0.05 - 4.0 ng/mL [facility] Comment:PSA methodology: Joel Ricci i ChemiluminescentMicroparticle Immunoassay (CMIA) Blood Venous blood specimen / Unknown 06/06/2024 9:49 AM EDT 06/06/2024 10:57 AM EDT Darius Christian MD LAB BLOOD ORDERABLES Final Result Performing Organization Address [facility] Co de Phone Number [facility] [address] [place] [phone] * Albumin, Random Urine W/Creatinine (06/06/2024 9:49 AM EDT) Creatinine, Urine 387.16 mg/dL [facility] Microalbumin Urine 61.0 mg/L [facility] Microalbum Creatinine Ratio Ur 15.7 <30 ug/mg cr [facility] Comment:Albumin/Creatinine R atio Reference Ranges: Normal: < 30 ug/mg creatinine Microalbuminuria: 30 - 300 ug/mg creatinineClinical Albuminuria: > 300 ug/mg creatinine Urine (Urine, Random) 06/06/2024 9:49 AM EDT 06/06/2024 11:03 AM EDT Avery Ceballos CNP LAB URINE ORDERABLES Cassidy l Result Performing Organization Address [facility] Co de Phone Number [facility] [address] [place] [phone] * (ABNORMAL) Hemoglobin A1c (06/06/2024 9:49 AM EDT) Hemoglobin A1c 6.2(H) <6.0 % [facility] Comment:Hemoglobin A1C Refer ence Range Adults: 4.8 - 6.0 % Non diabetic: < 6.0 % Goal: < 7.0 %Additional Action Suggested: > 8.0 %Note: Hemoglobin A1c results are invalid for patients with abnormal amounts of HbF. Blood transfusions may impact the HbA1c concentration in the patient sample. Estimated Average Glucose 131 mg/dL [facility] Comment:eAG = Estimated ave rage glucose which is %A1C expressed asaverage glucose, using the formula of the T7D-KjzixjwYepeqjc Glucose study (ADAG), Diabetes Care, Vol.31,#8,Sep. 2007 Blood Venous blood specimen / Unknown 06/06/2024 9:49 AM EDT 06/06/2024 10:57 AM EDT Darius Christian MD LAB BLOOD ORDERABLES Final Result [facility] [address] [place] [phone] * Lipid Panel, Standard (06/06/2024 9:49 AM EDT) Triglycerides 83 <150 mg/dL [facility] Comment:Desirable Triglyceri de: less than 150 mg/dLBorderline High Triglyceride 150-199 mg/dLHigh Triglyceride: 200-499 mg/dLVery High Triglyceride: greater than or equal to 5OO mg/dL Cholesterol 101 <200 mg/dL [facility] Comment:Desirable Cholestero l: less than 200 mg/dLBorderline High Cholesterol: 200-239 mg/dLHigh Cholesterol: greater than 239 mg/dL LDL Cholesterol Calculated 44 <100 mg/dL [facility] Comment:Desirable LDL: less than 100 mg/dLNear Optimal/Above Optimal LDL: 110- 129 mg/dLBorderline High LDL: 130-159 mg/dLHigh LDL: 160-189 mg/dLVery High LDL: greater than or equal to 190 mg/dL HDL Cholesterol 41 >40 mg/dL [facility] Comment:Desirable HDL: great er than 40 mg/dL Note: This HDL assay may give artificially low results in patients with liver disease. Blood Venous blood specimen / Unknown 06/06/2024 9:49 AM EDT 06/06/2024 10:57 AM EDT Darius Christian MD LAB BLOOD ORDERABLES Final Result [facility] [address] [place] [phone] [phone] * (ABNORMAL) POCT HGB A1C (06/03/2024 2:12 PM EDT) Only the most recent of2 resultswithin the time period is included. [facility] Hemoglobin A1C 6.2(A) 4.0 - 6.0 % QC Media Lot # [id number] Lot# Expiration Date Blood 06/03/2024 2:12 PM EDT Result [facility] POINT OF CARE TEST ENTER/ EDIT ORDERABLES Final Result * POCT Glucose (06/03/2024 2:10 PM EDT) Only the most recent of2 resultswithin the time period is included. [facility] Glucose Blood, POC 158 60 - 200 mg/dL QC Media Lot # [id number] Lot# Expiration Date Blood Capillary blood specimen / Unknown 06/03/2024 2:10 PM EDT Result [facility] POINT OF CARE TEST ENTER/ EDIT ORDERABLES Final Result * Hm Colonoscopy (06/25/2023) [facility] Colonoscopy Normal Normal Impressions Darius Eden MD - 06/25/2023 Tubular Adenoma Result [facility] HEALTH MAINTENANCE Final Result * HEPATITIS C AB W/REFL TO HCV RNA, QN, PCR (05/22/2021 8:46 AM EDT) [facility] HEPATITIS C ANTIBODY NON-REACT TABATHA NON-REACT TABATHA [facility] INDEX 0.01 <1.00 [facility] Comment: ?? HCV antibody was non-reactive. There is no laboratory ?? evidence of HCV infection. ?? In most cases, no further action is required. However, if recent HCV exposure is suspected, a test for HCV RNA (test code 34089) is suggested. ?? For additional information please refer to http://education.[employer]Overcart/faq/KGX66p0 (This link is being provided for informational/ educational purposes only.) ?? 05/22/2021 8:46 AM EDT us Darius Christian MD HISTORICAL/NON ORDERA BLE LABS Final Result [facility] [address] [place] [address], from Last 3 Months or Most Recently Relevant to Health Maintenance Insurance MEDICARE [facility] [address] [place] [address] [address] [place] [address] Care Teams Paper Finisher Relationship Specialty Start Date End Date Darius Eden MD [address] [place] [phone] PCP - General Internal Medicine 05/21/21 Tip Sims PharmD [address] [place] [phone] Pharmacist Internal Medicine 03/20/22 [facility] 03/20/22 [facility] 12/31/23
--- OUTSIDE RECORDS SUMMARY | 2024-06-13 14:05 | XMS_ITS | Encounter Summary ---
Author Organization [employer] Address [address] [facility] 7t [place] [address] Care Team Providers Care Manager Business Systems Name Role Phone Darius Eden MD Primary Care Provide r Tip Sism PharmD Unavailable [phone] Reason for Visit * Reason Onset Date Comments New Med Request 09/21/2023 Encounter Details Date Type Department Care Team ([facility] st Contact Info) Description 09/21/2023 Telephone [facility] [address] [place], [place] [phone] Darius Eden MD [address] [place], [place] [phone] New Med Request Social History Tobacco Use [...] Description 07/12/2024 10:30 AM EDT Office Visit [facility] [address] [place] [address] Basia Renteria, OD [address] [place] [address] 07/14/2024 11:30 AM EDT Office Visit [facility] [address] [place] [address] Darius Eden MD [address] [place] [address] documented as of this encounter Visit Diagnoses Not on filedocumented in this encounter Additional Health Concerns Assessment Noted Time PHQ-9 Depression Total Score: 6 10/15/19 23 3:08 PM EDT documented as of this encounter Care Teams Manager Business Systems Relationship Specialty Start Date End Date Darius Eden MD [address] [place] [address] PCP - General Internal Medicine 05/21/21 Tip Sims, DevoraD [address] [place] [phone] Pharmacist Internal Medicine 03/20/22 [facility] 03/20/22 [facility] 12/31/23 documented as of this encounter
--- OUTSIDE RECORDS SUMMARY | 2024-06-13 14:06 | XMS_ITS | Encounter Summary ---
Author Organization [employer] Address [address] [facility] 7t [place] [address] Care Team Providers Care Broadcast Chief Engineer Name Role Phone Darius Eden MD Primary Care Provide r Tip Sims PharmD Unavailable [phone] Reason for Visit * Reason Comments Med Refill Encounter Details Date Type Department Care Team ([facility] st Contact Info) Description 12/05/2022 Refill [facility] [address] [place], [place] [phone] Darius Eden MD [address] [place], [place] [phone] Heartburn Social History Tobacco Use Types Packs/Day [...] Description 07/12/2024 10:30 AM EDT Office Visit [facility] [address] [place] [address] TarkaBasia, OD [address] [place] [address] 07/14/2024 11:30 AM EDT Office Visit [facility] [address] [place] [address] Darius Eden MD [address] [place] [phone] documented as of this encounter Visit Diagnoses Diagnosis Heartburn documented in this encounter Additional Health Concerns Assessment Noted Time PHQ-9 Depression Total Score: 6 10/15/19 23 3:08 PM EDT documented as of this encounter Care Teams Broadcast Chief Engineer Relationship Specialty Start Date End Date Darius Eden MD [address] [place] [phone] PCP - General Internal Medicine 05/21/21 Tip Sims, Carlos [address] [place] [phone] Pharmacist Internal Medicine 03/20/22 [facility] 03/20/22 [facility] 11/21/24 documented as of this encounter
--- OUTSIDE RECORDS SUMMARY | 2024-06-13 14:06 | XMS_ITS | Encounter Summary ---
Author Organization [employer] Address [address] [facility] 7t [place] [address] Care Team Providers Care Board Finisher Name Role Phone Darius Eden MD Primary Care Provide r Tip Sims PharmD Unavailable [phone] Reason for Visit * Reason Comments Med Refill Encounter Details Date Type Department Care Team (Late st Contact Info) Description 02/11/2024 Refill [facility] [address] [place], [place] [phone] Darius Eden MD [address] [place], [place] [phone] Depressive disorder; Primary insomnia Social History Tobacco [...] Description 07/12/2024 10:30 AM EDT Office Visit [facility] [address] [place] [address] Basia Renteria, OD [address] [place] [address] 07/14/2024 11:30 AM EDT Office Visit [facility] [address] [place] [address] Darius Eden MD [address] [place] [phone] documented as of this encounter Visit Diagnoses Diagnosis Depressive disorder Depressive disorder, not elsewhere classified Primary insomnia Persistent disorder of initiating or maintaining sleep documented in this encounter Additional Health Concerns Assessment Noted Time PHQ-9 Depression Total Score: 0 11/19/19 24 10:20 AM EDT documented as of this encounter Care Teams Board Finisher Relationship Specialty Start Date End Date Darius Eden MD [address] [place] [phone] PCP - General Internal Medicine 05/21/21 Tip Sims, DevoraD [address] [place] [phone] Pharmacist Internal Medicine 03/20/22 [facility] 03/20/22 [facility] 12/31/23 documented as of this encounter
== END 2024-06-13 13:20 | disposition home or self-care (01) ==
LOC: HO.HOS 12:37
PROVIDERS: PCP Internal Medicine
DX: M17.0 Bilateral primary osteoarthritis of knee (principal)
CPT/HCPCS: 20610; 99213

== ENCOUNTER → 2024-06-13 12:36 | Outpatient (BNVA) | payer MEDICARE, MEDICAID, SELFPAY | PROVIDERS: PCP Internal Medicine | DX: M17.0 Bilateral primary osteoarthritis of knee (principal) | CPT/HCPCS: 20610; 99212; J1010; J2003 ==

== ENCOUNTER 2024-07-01 08:37 | Outpatient (AMB) | payer MEDICARE, MEDICAID, SELFPAY ==
--- OUTSIDE RECORDS SUMMARY | 2024-07-01 08:49 | XMS_ITS | Encounter Summary ---
Author Organization [employer] Address [address] [place] [address] 7t [place] [address] Care Team Providers Care Stationary Engineer Refrigeration Name Role Phone Darius Eden MD Primary Care Provide r Tip Sims PharmD Unavailable [phone] Encounter Details Date Type Department Care Team (Late st Contact Info) Description 03/05/2022 Orders Only [facility] [address] [place] [address] Rosaline Lamb LPN Social History Tobacco Use [...] [facility] [address] [place] [address] Basia Renteria, OD [address] [place], [place] [phone] 07/14/2024 11:30 AM EDT Office Visit [facility] [address] [place], [place] [phone] Darius Eden MD [address] [place] [address] documented as of this encounter Visit Diagnoses Not on filedocumented in this encounter Care Teams Stationary Engineer Refrigeration Relationship Specialty Start Date End Date Darius Eden MD [address] [place] [address] [phone] PCP - General Internal Medicine 05/21/21 Tip Sims, DevoraD [address] [place] [phone] Pharmacist Internal Medicine 03/20/22 [facility] 03/20/22 [facility] 12/31/23 documented as of this encounter
--- NOTE | 2024-07-01 08:53 | MHC.OFFVIS ---
Intake Visit Reasons: cysto Intake Note: Patient is present for Cystoscopy Urology Medication:FINASTERIDE Antibiotic Allergy:NONE Blood Thinner:ASPIRIN Lot:[id number] Exp:06/17/26 Online Merchandiser Required: No Allergies No Known Allergies [No Known Allergies*] Allergy (Verified 07/01/24 08:56) HPI Comments Details: Len is a pleasant Nauruan-speaking male. He is a patient of Dr. Ball. He is seen for the following urologic conditions - prostatitis - lower urinary tract symptoms GreenLight laser follow-up 12/02 GreenLight laser improve bladder emptying does have some leakage would continue with finasteride Here for check cystoscopy Irritation at bladder neck Open prostate Significant trabeculation with small diverticula Trial daily low-dose Bactrim plus solifenacin Lower urinary tract symptoms GreenLight laser 12/02 with cover suprapubic tube Postprocedure course had urinary urgency with accidents Continued on finasteride Had persistent UTI in setting of diabetes PSA 06/03 3.0 Prostatitis Significantly enlarged prostate Persistent pain and discomfort Has been on finasteride and doxazosin since hospital On Levaquin for E coli positive UTI Required prostatic unroofing in hospital 10/02 PENDING SALE TO [facility] Medical History Osteoarthritis of knees, bilateral Type 2 diabetes mellitus with unspecified complications Sepsis Hyperthyroidism Multinodular thyroid HLD (hyperlipidemia) HTN (hypertension) Obesity NSTEMI (non-ST elevated myocardial infarction) CAD (coronary artery disease) Diabetes mellitus Myocardial infarct Surgical History History of esophagogastroduodenoscopy (EGD) Hx of colonoscopy Hx of ultrasound guided needle biopsy Hx of CABG (~07/2016) Family History Mother Cardiovascular disease Father Medical history unknown Sister Cancer Brother Cancer Social History Household Members: Family Housing: Apartment Are you a primary laboratory animal caretaker to a significant other at home: No Do you presently have visiting nurse or other home services: No Alcohol intake: former Patient Tobacco Use Status: Former Tobacco user Second Hand Smoke Exposure: No service: No Current occupational status: unemployed Review of Systems Const Denies chills and Denies fever(s) Card Reports no additional complaints and Denies syncope Resp Denies cough GI Denies abdominal pain and Denies heartburn Reports as per HPI and Denies change in libido Neuro Denies syncope Psych Denies change in libido Endo Denies change in libido Physical Exam Const General: cooperative, healthy appearing, comfortable and no acute distress Orientation/consciousness: patient oriented x3 HEENT Face and sinus: Yes normal facial exam Mouth: moist mucous membranes Neck Neck: Yes normal visual inspection, Yes full ROM and Yes trachea midline Chest Chest palpation & inspection: normal inspection of the chest Resp Effort & Inspection: normal respiratory effort, able to speak in complete sentences and no respiratory distress GI Inspection: Yes normal to inspection Back/Spine/Pelvis Cervical Spine: normal cervical lordosis Thoracic/Lumbar Spine: thoracic and lumbar spine normal to inspection Skin General skin exam: no rashes or lesions noted Neuro General: patient oriented x3, gait normal, tone normal and moves all extremities Extrem General: Yes normal to inspection and Yes capillary refill normal Office Procedures Cystoscopy Consent Discussed risk and benefit or proposed procedure with the patient. Information consent for procedure given to the patient. Discussed technical aspects, risks, benefits and alternatives in full. Addressed all of the patient's questions and concerns regarding the procedure. The patient demonstrated knowledge and understanding. They wish to proceed with this procedure. Preparation The patient was prepped in the usual manner. A dry cleaner was present and in the room. Genitalia was prepped with betadine solution in a sterile manner. Lidocaine Jelly 2% was placed into the urethra and 16Fr flexible Olympus cystoscope was inserted into the meatus after adequate lubrication. Procedure Cystoscopy performed using a disposable Urovue digital 16 Nigerian cystoscope. Meatus uncircumcised Urethra anterior and posterior urethra normal Prostatic Urethra unremarkable - open bladder neck Bladder examination with retroflexion of cystoscope Bladder Orifices normal shape and position Bladder Capacity Normal Trabeculations grade 2 Cellule Formation multiple small Diverticulum Formation Dome Mucosal Erythema None - Bladder Tumor None - [id number] DISPOSABLE SCOPE URO-G FLEXIBLE SCOPE Procedure code (CPT) selection complete Office Meds lidocaine HCl 2 % mucosal jelly in applicator Performing Provider: Cristobal Carney MD Performing Location: [facility] [place] [facility] Administered by: Josias Greer LPN on 07/01/24 09:14 Dose Route Admin Location Dispensed Lot Number Expiration Date NDC Cut Out Stitcher 10 mL intra-urethral 10 mL nitrofurantoin monohydrate/macrocrystals 100 mg capsule Performing Provider: Cristobal Carney MD Performing Location: [facility] [place] [facility] Administered by: Josias Greer LPN on 07/01/24 09:14 Dose Route Admin Location Dispensed Lot Number Expiration Date NDC Cut Out Stitcher 100 mg PO 1 cap Assessment & Plan Assessment & Plan (1) Cystitis: Code(s): N30.90 - Cystitis, unspecified without hematuria Category: Medical (2) Bladder instability: Code(s): N32.89 - Other specified disorders of bladder Category: Medical Plan Six-month follow-up Orders: Orders AMB Urinalysis Automated Today Z13.9 - Encounter for screening, unspecified AMB Cystoscopy Today N30.90 - Cystitis, unspecified without hematuria, N32.89 - Other specified disorders of bladder, N40.1 - Benign prostatic hyperplasia with lower urinary tract symptoms, N41.9 - Inflammatory disease of prostate, unspecified, R33.9 - Retention of urine, unspecified Medications: New solifenacin 5 mg PO DAILY 90 days 90 tabs 1RF N32.89 - Other specified disorders of bladder Patient Instructions: This note is constructed using voice recognition software. While every effort has been made to ensure accuracy halfway house counselor errors may have been included. Imaging studies, laboratory and physical exam results were discussed and reviewed in detail. No major barriers to patient understanding were identified. An opportunity to ask questions regarding the treatment plan was provided. All questions were answered. The patient expressed understanding and agreement with the above treatment plan. The patient is aware they should contact our office by phone for worsening of their current condition or the appearance of new urologic symptoms. Compliance is encouraged with any medications and followup testing that is ordered. It is a privilege to participate in the urologic care of your patient. If you have any questions or concerns regarding treatment for the above conditions, or other urologic issues, please do not hesitate to contact me. The office telephone contact is [phone]. Sincerely, Dr Cristobal Carney MD, [facility] - Urology Compassionate Specialist Care for the Genitourinary System Coding Level of Care Code Est Pt Level 4 (53763) Complex EM visit Add On G2211 Diagnoses Cystitis N30.90 Bladder instability N32.89 CPT Codes Cystoscopy - CPT: 15596-[id number] ([id number])
== END 2024-07-01 09:32 | disposition home or self-care (01) ==
LOC: HO.HUSH 08:38
PROVIDERS: PCP Internal Medicine; Visit Provider Urology
DX: N40.1 Benign prostatic hyperplasia with lower urinary tract symptoms (principal); N32.89 Other specified disorders of bladder; R33.9 Retention of urine, unspecified; N30.90 Cystitis, unspecified without hematuria; N41.9 Inflammatory disease of prostate, unspecified; Z13.9 Encounter for screening, unspecified
CPT/HCPCS: 52000; 99214

== ENCOUNTER → 2024-07-01 08:37 | Outpatient (BNVA) | payer MEDICARE, MEDICAID, SELFPAY | PROVIDERS: PCP Internal Medicine; Visit Provider Urology | DX: N40.1 Benign prostatic hyperplasia with lower urinary tract symptoms (principal); R33.8 Other retention of urine; N30.90 Cystitis, unspecified without hematuria; N32.89 Other specified disorders of bladder | CPT/HCPCS: 52000; 81003; 99212 ==

== ENCOUNTER 2024-10-14 08:44 | Outpatient (AMB) | payer MEDICARE, MEDICAID, SELFPAY ==
--- OUTSIDE RECORDS SUMMARY | 2024-10-11 10:00 | XMS_ITS | Encounter Summary ---
Author Organization [employer] Address [address] [place] [address] [address] [place] [address] Care Team Providers Care Airport Electrician Name Role Phone Darius Eden MD Primary Care Provide r Tip Sims PharmD Unavailable [phone] Reason for Visit * Reason Comments Follow-up Encounter Details Date Type Department Care Team ([facility] st Contact Info) Description 10/11/2024 10:00 AM EDT Office Visit [facility] [address] [place], [place] [phone] Darius Eden MD [address] [place], [place] [phone] Type 2 diabetes mellitus with diabetic peripheral angiopathy without gangrene, with long-term current use of insulin ([facility]) (Primary Dx); Essential hypertension; Moderate persistent asthma without complication; Pure hypercholesterolemia; Acute pain of right knee; Benign prostatic hyperplasia with lower urinary tract symptoms, symptom details unspecified; Obstructive sleep apnea syndrome; Preventative health care Social History Tobacco Use Types Packs/Day Years [...] Sign Reading Time Taken Comments Blood Pressure 144/72 10/11/2024 9:46 AM EDT Pulse 82 10/11/2024 9:46 AM EDT Temperature 37.2 C (98.9 F) 10/11/2024 9:46 AM EDT Respiratory Rate 20 10/11/2024 9:46 AM EDT Oxygen Saturation 90% 10/11/2024 9:46 AM EDT Inhaled Oxygen Concentration - - Weight 87.5 kg (192 lb 12.8 oz) 10/11/2024 9:46 AM EDT Height 167.6 cm (5' 6 ) 10/11/2024 9:46 AM EDT Body Mass Index 31.12 10/11/2024 9:46 AM EDT documented in this encounter Progress Notes * Darius Christian MD - 10/11/2024 10:00 AM EDT SUBJECTIVE Len Franks is a 74 y.o. male who presents for Follow-up. Len Franks, 74 years Diabetes - Reports home blood glucose readings sometimes low, sometimes slightly elevated after eating foodshe should avoid - Most recent home glucose reading reported as 136 Hypertension - Missed antihypertensive medication for several days prior to visit Knee Pain - Received an injection in the knee from orthopedics prior to this visit - Reports improvement after injection Sleep Apnea - Using CPAP machine for sleep Prostate Symptoms - Under care of urologist for urinary symptoms - Taking medication prescribed by urologist to improve urination Cholesterol - Last cholesterol test performed in May 2024 Asthma There is no cough or shortness of breath. This is a chronic problem. Pertinent negatives include nochest pain, fever, headaches or sore throat. His past medical history is significant for asthma. Review of Systems Constitutional: Negative for fever. HENT: Negative for sore throat. Respiratory: Negative for cough and shortness of breath. Cardiovascular: Negative for chest pain. Gastrointestinal: Negative for abdominal pain. Neurological: Negative for headaches. Allergies[1] OBJECTIVE Vitals: 10/11/24 0946 BP: (!) 144/72 BP Location: Left arm Patient Position: Sitting BP Cuff Size: Adult Pulse: 82 Resp: 20 Temp: 98.9 ??F (37.2 ??C) TempSrc: Temporal SpO2: 90% Weight: 192 lb 12.8 oz (87.5 kg) Height: 5' 6 (1.676 m) Physical Exam Vitals reviewed. Constitutional: Appearance: Normal appearance. HENT: Head: Normocephalic and atraumatic. Right Ear: External ear normal. Left Ear: External ear normal. Nose: Nose normal. Mouth/Throat: Mouth: Mucous membranes are moist. Eyes: Conjunctiva/sclera: Conjunctivae normal. Cardiovascular: Rate and Rhythm: Normal rate and regular rhythm. Pulmonary: Effort: Pulmonary effort is normal. Breath sounds: Normal breath sounds. Skin: General: Skin is warm. Neurological: Mental Status: He is alert. Mental status is at baseline. Assessment/Plan Problem List Items Addressed This Visit Type 2 diabetes mellitus with circulatory disorder, with long-term current use of insulin ([facility])- Primary Pt here for a f/u He is on a regimen of: Basaglar 80 units sc q pm , Trulicity 4.5 mg once a week and Novolog 16 units before meals Hgb A1c 10/11/2024: 7.2 Microalbumin 05/22/2021 13.7 Pt on an ARB (irbersartan) Foot check today is risk of: zero Pt reports compliance with Asa 81 mg po daily He did not bring his glucometer Plan: No changes for now, did not bring glucometer again Pt advised to: adhere to diabetic diet check your blood sugars regularly check your feet on a daily basis. Relevant Orders POCT glucose manually resulted POCT glycosylated hemoglobin (Hgb A1c) Essential hypertension Patient with Hypertension currently mildly elevated, pt had not been taking his medications He is on a regimen of: Irbersartan 150 mg po daily, isosorbide ER 60 mg po daily, Metoprolol 50 mg po BID and Amlodipine 10 mg po daily (increased by Cardiology) He was Referred to [facility] f/u with me in 3 months patient advised to adhere to a low sodium diet, encouraged about medication compliance, counseled about weight loss. Moderate persistent asthma without complication Pt evaluated by Puldayne last seen 06/08/2024 On; Xolair. Breo and albuterol MDI. Pure hypercholesterolemia Most recent Lipid profile from: Lab Results Component Value Date TRIG 83 06/06/2024 TRIG 120 12/25/2022 CHOL 101 06/06/2024 CHOL 133 12/25/2022 LDLCHOLCAL 44 06/06/2024 LDLCHOLCAL 69 12/25/2022 HDL 41 06/06/2024 HDL 40 (L) 12/25/2022 On Crestor 20 mg po at bedtime and Zetia 10 Acute pain of right knee Exam suggestive of OA, although other etiologies such as gout need to be ruled out Seen by Ortho 06/13/2024 receoved steroid injection Acetaminophen PRN pain. Benign prostatic hyperplasia Under the care of Urology s/p GreenLight Laser Enucleation of the prostate 12/14/2023 Last seen by Urology Obstructive sleep apnea syndrome Uses his Cpap machine with good results Preventative health care PSA 06/06/2024 normal Colonoscopy 06/25/[address] Domínguez recommended repeat 1-3 years given polyp burden This note was drafted using Ambient (AI) technology. The patient/patient's guardian has been informed and has consented to the use of this technology: Yes No future appointments. [1] No Known Allergies documented in this encounter Miscellaneous Notes * Assessment & Plan Note - Darius Christian MD - 10/11/2024 10:06 AM EDT Associated Problem(s): Type 2 diabetes mellitus with circulatory disorder, with long-term current use of insulin ([facility]) Pt here for a f/u He is on a regimen of: Basaglar 80 units sc q pm , Trulicity 4.5 mg once a week and Novolog 16 units before meals Hgb A1c 10/11/2024: 7.2 Microalbumin 05/22/2021 13.7 Pt on an ARB (irbersartan) Foot check today is risk of: zero Pt reports compliance with Asa 81 mg po daily He did not bring his glucometer Plan: No changes for now, did not bring glucometer again Pt advised to: adhere to diabetic diet check your blood sugars regularly check your feet on a daily basis. * Assessment & Plan Note - Darius Christian MD - 10/11/2024 10:04 AM EDT Associated Problem(s): Preventative health care PSA 06/06/2024 normal Colonoscopy 06/25/[address] Domínguez recommended repeat 1-3 years given polyp burden * Assessment & Plan Note - Darius Christian MD - 10/11/2024 10:03 AM EDT Associated Problem(s): Obstructive sleep apnea syndrome Uses his Cpap machine with good results * Assessment & Plan Note - Darius Christian MD - 10/11/2024 10:02 AM EDT Associated Problem(s): Essential hypertension Patient with Hypertension currently mildly elevated, pt had not been taking his medications He is on a regimen of: Irbersartan 150 mg po daily, isosorbide ER 60 mg po daily, Metoprolol 50 mg po BID and Amlodipine 10 mg po daily (increased by Cardiology) He was Referred to [facility] f/u with me in 3 months patient advised to adhere to a low sodium diet, encouraged about medication compliance, counseled about weight loss. * Assessment & Plan Note - Darius Christian MD - 10/11/2024 10:01 AM EDT Associated Problem(s): Pure hypercholesterolemia Most recent Lipid profile from: Lab Results Component Value Date TRIG 83 06/06/2024 TRIG 120 12/25/2022 CHOL 101 06/06/2024 CHOL 133 12/25/2022 LDLCHOLCAL 44 06/06/2024 LDLCHOLCAL 69 12/25/2022 HDL 41 06/06/2024 HDL 40 (L) 12/25/2022 On Crestor 20 mg po at bedtime and Zetia 10 * Assessment & Plan Note - Darius Christian MD - 10/11/2024 9:39 AM EDT Associated Problem(s): Benign prostatic hyperplasia Under the care of Urology s/p GreenLight Laser Enucleation of the prostate 12/14/2023 Last seen by Urology * Assessment & Plan Note - Darius Christian MD - 10/11/2024 9:39 AM EDT Associated Problem(s): Acute pain of right knee Exam suggestive of OA, although other etiologies such as gout need to be ruled out Seen by Ortho 06/13/2024 receoved steroid injection Acetaminophen PRN pain. * Assessment & Plan Note - Darius Christian MD - 10/11/2024 9:36 AM EDT Associated Problem(s): Moderate persistent asthma without complication Pt evaluated by Pulmonology last seen 06/08/2024 On; Xolair. Breo and albuterol MDJuan Carlos. documented in this encounter Plan of Treatment Not on file documented as of this encounter Procedures Procedure Name Priority Date/Time Associated Diagnosis Comments POCT GLUCOSE Routine 10/11/2024 10:20 AM EDT Type 2 diabetes mellitus with diabetic peripheral angiopathy without gangrene, with long-term current use of insulin ([facility]) POCT GLYCOSYLATED HEMOGLOBIN (HGB A1C) Routine 10/11/2024 10:19 AM EDT Type 2 diabetes mellitus with diabetic peripheral angiopathy without gangrene, with long-term current use of insulin ([facility]) documented in this encounter Results * POCT glucose manually resulted (10/11/2024 10:20 AM EDT) Glucose Blood, POC 170 60 - 200 mg/dL QC Media Lot # [id number] Lot# Expiration Date 024,464 Blood Capillary blood specimen / Unknown 10/11/2024 10:20 AM EDT Darius Christian MD POINT OF CARE TEST EN TER/EDIT ORDERABLES Final Result * (ABNORMAL) POCT glycosylated hemoglobin (Hgb A1c) (10/11/2024 10:19 AM EDT) Hemoglobin A1C 7.2(A) 4.0 - 5.7 % QC Media Lot # [id number] Lot# Expiration Date ,093,709 Blood Capillary blood specimen / Unknown 10/11/2024 10:19 AM EDT Darius Christian MD POINT OF CARE TEST EN TER/EDIT ORDERABLES Final Result documented in this encounter Visit Diagnoses Diagnosis Type 2 diabetes mellitus with diabetic peripheral angiopathy without gangrene, with long-term current use of insulin ([facility])- Primary Essential hypertension Unspecified essential hypertension Moderate persistent asthma without complication Pure hypercholesterolemia Acute pain of right knee Benign prostatic hyperplasia with lower urinary tract symptoms, symptom details unspecified Obstructive sleep apnea syndrome Obstructive sleep apnea (adult) (pediatric) Preventative health care Routine general medical examination at a health care facility documented in this encounter Additional Health Concerns Assessment Noted Time PHQ-9 Depression Total Score: 0 11/19/19 10:20 AM EDT documented as of this encounter Care Teams Airport Electrician Relationship Specialty Start Date End Date Darius Eden MD [address] [place] [address] PCP - General Internal Medicine 05/21/21 Tip Sims, DevoraD [address] [place] [address] Pharmacist Internal Medicine 03/20/22 [facility] Pharmacist Pharmacy 03/20/22 [facility] 12/31/23 documented as of this encounter
--- NOTE | 2024-10-14 09:01 | A.OFFVIS_ITS ---
Vital Signs 10/14/24 09:01 Height 56 ft Weight 198 lb BMI 0.3 Intake Visit Reasons: Inj- RT knee OA, right knee inj 06/13/24 Intake Note: Len is a 74 year old male who presents today for follow up of his Right Knee Osteoarthritis. He was given a Left Knee injection on 06/13/24. Today, he wishes to have his Right Knee Injected. Mva Still Operator Required: Yes Mva Still Operator Name: Claudediaar, RMA/LM Allergies No Known Allergies (No Known Allergies*) Allergy (Verified 07/01/24 08:56) HPI HPI Inj- RT knee OA, right knee inj 06/13/24: Details: Patient is a 74-year-old male who presents to the office today for right hand injection, patient reports that he back good symptom relief from previous injection, and would like to get another 1. [facility] Medical History Osteoarthritis of knees, bilateral Type 2 diabetes mellitus with unspecified complications Sepsis Hyperthyroidism Multinodular thyroid HLD (hyperlipidemia) HTN (hypertension) Obesity NSTEMI (non-ST elevated myocardial infarction) CAD (coronary artery disease) Diabetes mellitus Myocardial infarct Surgical History History of esophagogastroduodenoscopy (EGD) Hx of colonoscopy Hx of ultrasound guided needle biopsy Hx of CABG (~07/2016) Family History Mother Cardiovascular disease Father Medical history unknown Sister Cancer Brother Cancer Social History Household Members: Family Housing: Apartment Are you a primary career and technology education teacher to a significant other at home: No Do you presently have visiting nurse or other home services: No Alcohol intake: former Patient Tobacco Use Status: Former Tobacco user Second Hand Smoke Exposure: No service: No Current occupational status: unemployed Review of Systems Const All systems reviewed & are unremarkable except as noted in HPI and below Physical Exam Vital Signs: BMI result Body Mass Index 0.3 Office Procedures Joint Inj/Aspir; Non-Pain Clin Joint Injection/Drain Prep: site was prepped using aseptic technique and injection warnings given Approach Used: anterolateral Procedure: The patient tolerated the procedure well, but had some pain with the injection and there was some relief with the local anesthesia Shoulders, Hips, Knees, Knee Large Joint Injection [id number]: Right Knee Coding Procedure code (CPT) selection complete Assessment & Plan Assessment & Plan (1) Bilateral primary osteoarthritis of knee: Code(s): M17.0 - Bilateral primary osteoarthritis of knee Category: Medical Plan 1. Right knee osteoarthritis Patient is educated about this condition Patient is educated about the typical treatment course The risks and benefits of a steroid injection including but not limited to risk of damage to blood vessels, nerves, tendons, infection, skin bleaching, failure to improve symptoms, increased pain, and possible need for further injections or other intervention were discussed with the patient and the patient wishes to proceed with the steroid injection. Once consent was obtained, I aseptically prepped the area over the anterolateral joint line of the left knee. I then injected the anterolateral joint line with a combination of 40 mg of dexamethasone and 8 mL of 1% lidocaine. The patient tolerated the procedure well with no complications. If the patient continues to experience symptoms over the following few weeks or months, they can make an appointment to return and discuss alternative treatment measures, such as physical therapy. Follow-up prn Coding Level of Care Code Procedure Only Diagnoses Bilateral primary osteoarthritis of knee M17.0 CPT Codes Shoulders, Hips, Knees, - Knee Large Joint Injection : Right Knee ([id number])
--- OUTSIDE RECORDS SUMMARY | 2024-10-14 09:18 | XMS_ITS | Encounter Summary ---
Author Organization [employer] Address [address] [place] [address] Care Team Providers Care Planisher Name Role Phone Darius Eden MD Primary Care Provide r Tip Sims PharmD Unavailable [phone] Reason for Visit * Reason Onset Date Comments New Med Request 09/21/2023 Encounter Details Date Type Department Care Team ([facility] st Contact Info) Description 09/21/2023 Telephone [facility] [address] [place], [place] [phone] Darius Eden MD [address] [place], [place] [phone] New Med Request Social History Tobacco Use [...] on file documented as of this encounter Visit Diagnoses Not on filedocumented in this encounter Additional Health Concerns Assessment Noted Time PHQ-9 Depression Total Score: 6 10/15/19 23 3:08 PM EDT documented as of this encounter Care Teams Planisher Relationship Specialty Start Date End Date Darius Eden MD [address] [place] [address] PCP - General Internal Medicine 05/21/21 Tip Sims PharmD [address] [place] [address] Pharmacist Internal Medicine 03/20/22 [facility] Pharmacist Pharmacy 03/20/22 [facility] [place] 12/31/23 documented as of this encounter
--- OUTSIDE RECORDS SUMMARY | 2024-10-14 09:18 | XMS_ITS | Encounter Summary ---
Author Organization [employer] Address [address] [place] [address] 7 [place] [address] Care Team Providers Care Acetylene Gas Compressor Name Role Phone Darius Eden MD Primary Care Provide r Tip Sims PharmD Unavailable [phone] Reason for Visit * Reason Comments Med Refill Encounter Details Date Type Department Care Team ([facility] st Contact Info) Description 03/09/2023 Refill [facility] MEDICINE 230 [place], [place] [phone] Darius Eden MD 230 [place], [place] [phone] Acute cough Social History Tobacco Use Types [...] as of this encounter Plan of Treatment Not on file documented as of this encounter Visit Diagnoses Diagnosis Acute cough documented in this encounter Additional Health Concerns Assessment Noted Time PHQ-9 Depression Total Score: 6 10/15/19 23 3:08 PM EDT documented as of this encounter Care Teams Acetylene Gas Compressor Relationship Specialty Start Date End Date Darius Eden MD [address] [place] [address] PCP - General Internal Medicine 05/21/21 Tip Sims PharmD [address] [place] [address] Pharmacist Internal Medicine 03/20/22 [facility] 03/20/22 [facility] 12/31/23 documented as of this encounter
--- OUTSIDE RECORDS SUMMARY | 2024-10-14 09:18 | XMS_ITS | Encounter Summary ---
Author Organization [employer] Address [address] [facility] 7t [place] [address] Care Team Providers Care Res Counselor Name Role Phone Darius Eden MD Primary Care Provide r Tip Sims PharmD Unavailable [phone] Reason for Visit * Reason Comments Med Refill Encounter Details Date Type Department Care Team ([facility] st Contact Info) Description 10/08/[address] [facility] 230 [place], [place] [phone] Darius Eden MD 230 [place], [place] [phone] Social History Tobacco Use Types Packs/Day Years [...] documented as of this encounter Care Teams Res Counselor Relationship Specialty Start Date End Date Darius Eden MD [address] [place] [address] PCP - General Internal Medicine 05/21/21 Tip Sims PharmD 230 [place] [address] Pharmacist Internal Medicine 03/20/22 [facility] 03/20/22 [facility] 12/31/23 documented as of this encounter
--- OUTSIDE RECORDS SUMMARY | 2024-10-14 09:18 | XMS_ITS | Encounter Summary ---
Author Organization [employer] Address [address] [facility] 7 [place] [address] Care Team Providers Care Wood Crafter Name Role Phone Darius Eden MD Primary Care Provide r Tip Sims PharmD Unavailable [phone] Encounter Details Date Type Department Care Team ([facility] st Contact Info) Description 07/18/2024 Telephone [facility] MEDICINE 230 [place], [place] [phone] Darius Eden MD 230 [place], [place] [phone] Social History Tobacco Use Types Packs/Day Years [...] documented as of this encounter Care Teams Wood Crafter Relationship Specialty Start Date End Date Darius Eden MD [address] [place] [address] PCP - General Internal Medicine 05/21/21 Tip Sims PharmD [address] [place] [phone] Pharmacist Internal Medicine 03/20/22 [facility] 03/20/22 [facility] 12/31/23 documented as of this encounter
--- OUTSIDE RECORDS SUMMARY | 2024-10-14 09:18 | XMS_ITS | Encounter Summary ---
Author Organization [employer] Address [address] [place] [address] 7 [place] [address] Care Team Providers Care Salvage Mechanic Name Role Phone Darius Eden MD Primary Care Provide r Tip Sims PharmD Unavailable [phone] Reason for Visit * Reason Onset Date Comments Med Refill 10/26/2023 Encounter Details Date Type Department Care Team ([facility] st Contact Info) Description 10/26/2023 Telephone [facility] MEDICINE 230 [place], [place] [phone] Darius Eden MD 230 [place], [place] [phone] Med Refill Social History Tobacco Use Types [...] 500 MG tablet To be sent to: [facility] - [place], [place] - [address] [place] [address] documented in this encounter Plan of Treatment Not on file documented as of this encounter Visit Diagnoses Not on filedocumented in this encounter Additional Health Concerns Assessment Noted Time PHQ-9 Depression Total Score: 6 10/15/19 23 3:08 PM EDT documented as of this encounter Care Teams Salvage Mechanic Relationship Specialty Start Date End Date Darius Eden MD 230 [place] [address] PCP - General Internal Medicine 05/21/21 Tip Sims, DevoraD [address] [place] [address] Pharmacist Internal Medicine 03/20/22 [facility] 03/20/22 [facility] [place] 12/31/23 documented as of this encounter
--- OUTSIDE RECORDS SUMMARY | 2024-10-14 09:18 | XMS_ITS | Encounter Summary ---
Author Organization [employer] Address [address] [facility] 7t [place] [address] Care Team Providers Care Sewing Machinist Name Role Phone Darius Eden MD Primary Care Provide r Tip Sims PharmD Unavailable [phone] Encounter Details Date Type Department Care Team (Latest Contact Info) Description 10/11/2024 Travel Social History Tobacco Use Types Packs/Day [...] documented as of this encounter Care Teams Sewing Machinist Relationship Specialty Start Date End Date Darius Eden MD 230 [place] [address] PCP - General Internal Medicine 05/21/21 Tip Sims PharmD [address] [place] [phone] Pharmacist Internal Medicine 03/20/22 [facility] 03/20/22 [facility] 12/31/23 documented as of this encounter
--- OUTSIDE RECORDS SUMMARY | 2024-10-14 09:18 | XMS_ITS | Encounter Summary ---
Author Organization [employer] Address [address] [place] [address], [place] [address] Care Team Providers Care Annealing Operator Name Role Phone Darius Eden MD Primary Care Provide r Tip Sims PharmD Unavailable [phone] Encounter Details Date Type Department Care Team (Late st Contact Info) Description 03/12/2022 Telephone [facility] MEDICINE 230 [place] [address] Darius Eden MD 230 [place], [place] [phone] Social History Tobacco Use Types Packs/Day Years [...] on filedocumented in this encounter Care Teams Annealing Operator Relationship Specialty Start Date End Date Darius Eden MD [address] [place] [phone] PCP - General Internal Medicine 05/21/21 Tip Sims, PharmD [address] [place] [phone] Pharmacist Internal Medicine 03/20/22 [facility] 03/20/22 [facility] 12/31/23 documented as of this encounter
--- OUTSIDE RECORDS SUMMARY | 2024-10-14 09:18 | XMS_ITS | Clinical Summary ---
Author Organization [facility] Address [address] [place] [address] Care Team Providers Care Php Magento Developer Name Role Phone Lauren Whyte Primary Care Provider U navailable Surgical History Surgery Date Site/Laterality Comments CARPAL TUNNEL RELEASE PROCEDURE: [place] NEUROPLASTY &/TRANSPOS MEDIAN NRV CARPAL TUNNE COLONOSCOPY [...] 03/23/2012 DX:Anxiety Depression 03/23/2012 DX:Depression Diabetic cataract ([facility] V 24, [facility] V28) 09/07/2014 DX:Diabetic cataract ([facility]) GERD (gastroesophageal reflux disease) 01/12/2012 DX:GERD (gastroesophageal reflux disease) Type II or unspecified type diabetes mellitus with ophthalmic manifestations, uncontrolled(250.52) ([facility] V24, [facility] V28) 06/26/2013 DX:Type II or unspecified t ype diabetes mellitus with ophthalmic manifestations, uncontrolled(250.52) ([facility]) Tinnitus of right ear 12/07/2012 DX:Tinnitu s of right ear PVD (peripheral vascular dis ease) ([facility] V24) 06/22/2014 DX:PVD (peripheral vascular disease) ([facility]) Obstructive sleep apnea 05/27/2013 DX:Obstr uctive sleep apnea; COMMENT: Dr. Thornton, neurologist at [facility] Split night study 02/06/13: AHI 102.4, O2 sat [...] Elbows, knees Asthma 03/08/2012 DX:Asthma Atherosclerosis of [place] co ronary artery of [place] heart with angina pectoris (CMS/HCC V24) 06/12/2015 DX:Atherosclerosis of [place] coronary artery of [place] heart with angina pectoris (HCC) Balanitis 05/25/2012 [...] 1958 Zoster Vaccines (1 of 2) 1998 Cholesterol Screening (Lipid Panel) 01/07/2022 Falls Risk Assessment 01/07/2022 Hepatitis C Screening 01/07/2022 Social Influencers of Health Screening 01/07/2022 Diabetes: Annual Urine Albumin-Creatinine Ratio (uACR) 01/24/2022 Diabetes: Blood Sugar Control Test (HGBA1C) 01/24/2022 Hypertension/CHF/CAD Annual BMP Blood Test 01/24/2022 RSV Immunization Adult Patients (1 - 1-dose 75+ series) 08/20/2023 Depression Screening 02/10/2024 COVID-19 Vaccine ( season) 2024 06/10/2020, 05/13/2020 Influenza Vaccine (#1) 2024 0, 10/21/2019, 10/04/2018, Additional history exists DTaP,Tdap,and Td [...] age to complete this topic Care Teams Php Magento Developer Relationship Specialty Start Date End Date Lauren Whyte PA PCP - General Internal Medicine 01/24/21
--- OUTSIDE RECORDS SUMMARY | 2024-10-14 09:18 | XMS_ITS | Encounter Summary ---
Author Organization [employer] Address [address] [facility] 7 [place] [address] Care Team Providers Care Carton Making Machinist Name Role Phone Darius Eden MD Primary Care Provide r Tip Sims PharmD Unavailable [phone] Reason for Visit * Reason Comments Med Change Request Encounter Details Date Type Department Care Team ([facility] Contact Info) Description 11/20/2023 Refill [facility] MEDICINE [address] [place], [place] [phone] Darius Eden MD [address] [place], [place] [phone] Primary insomnia Social History Tobacco Use Types [...] documented as of this encounter Care Teams Carton Making Machinist Relationship Specialty Start Date End Date Darius Eden MD 230 [place] [address] PCP - General Internal Medicine 05/21/21 Tip Sims PharmD [address] [place] [address] Pharmacist Internal Medicine 03/20/22 [facility] 03/20/22 [facility] [place] 12/31/23 documented as of this encounter
--- OUTSIDE RECORDS SUMMARY | 2024-10-14 09:18 | XMS_ITS | Encounter Summary ---
Author Organization [employer] Address [address] [place] [address] 7 [place] [address] Care Team Providers Care Shovel Handle Assembler Name Role Phone Darius Eden MD Primary Care Provide r Tip Sims PharmD Unavailable [phone] Encounter Details Date Type Department Care Team (Late st Contact Info) Description 03/05/2022 Orders Only [facility] MED & PEDS [address] [place] [address] Rosaline Lamb LPN Social History Tobacco Use [...] on filedocumented in this encounter Care Teams Shovel Handle Assembler Relationship Specialty Start Date End Date Darius Eden MD [address] [place] [address] PCP - General Internal Medicine 05/21/21 Tip Sims, PharmD [address] [place] [address] Pharmacist Internal Medicine 03/20/22 [facility] 03/20/22 [facility] [place] 12/31/23 documented as of this encounter
--- OUTSIDE RECORDS SUMMARY | 2024-10-14 09:18 | XMS_ITS | Encounter Summary ---
Author Organization [employer] Address [address] [place] [address] [address] [place] [address] Care Team Providers Care Acds Block 1 Operator Name Role Phone Darius Eden MD Primary Care Provide r Tip Sims PharmD Unavailable [phone] Encounter Details Date Type Department Care Team (Late st Contact Info) Description 03/05/2022 Orders Only [facility] MEDICINE [address] [place] [phone] Britney Burton LPN Social History Tobacco Use [...] on filedocumented in this encounter Care Teams Acds Block 1 Operator Relationship Specialty Start Date End Date Darius Eden MD [address] [place] [address] PCP - General Internal Medicine 05/21/21 Tip Sims, PharmD [address] [place] [address] Pharmacist Internal Medicine 03/20/22 [facility] 03/20/22 [facility] 12/31/23 documented as of this encounter
--- OUTSIDE RECORDS SUMMARY | 2024-10-14 09:18 | XMS_ITS | Clinical Summary ---
Author Organization [employer] Address [address] [place] [address] 7 [place] [address] Care Team Providers Care Bottom Saw Operator Name Role Phone Darius Eden MD Primary Care Provide r Tip Sims PharmD Unavailable [phone] Allergies No known active allergies Medications Breo [...] g by mouth Once per day. Active Multiple Vitamin (multivitamin) tabletIndicati ons:Type 2 diabetes mellitus with other specified complication, unspecified whether terminal makeup operator insulin use (CMS/[facility]) Take 1 tablet by mouth Once per day. 30 tablet 11 Active insulin pen needle (Easy Touch Pen [place]) 31G X 8 mm misc USE DIRECTED FOUR TIMES DAILY 100 each 11 Active Acetaminophen Extra Strength 500 MG tabletIndicati ons:Acute pain of right knee TAKE 2 TABLETS BY MOUTH EVERY 8 HOURS NEEDED FOR PAIN 60 tablet Active insulin glargine (Basaglar KwikPen) 100 UNIT/ML pen Inject 80 Units under the skin at bedtime. 3 mL 12 2025 Active Blood Glucose Monitoring Suppl (OneTouch Verio Flex System) w/Device kitIndications :Type 2 diabetes mellitus without complication, unspecified whether terminal makeup operator insulin use (CMS/[facility]) TEST BLOOD SUGAR EVERY DAY 1 kit Active Lancets (OneTouch Delica Plus [id number]) miscIndication s:Type 2 diabetes mellitus without complication, unspecified whether terminal makeup operator insulin use (CMS/[facility]) TEST BLOOD SUGAR THREE TIMES DAILY 100 each 1 Active glucose blood (OneTouch Verio) test stripIndicatio ns:Type 2 diabetes mellitus without complication, unspecified whether retirement insulin use ([facility]) TEST BLOOD SUGAR THREE TIMES DAILY 100 strip 1 025 Active escitalopram (Lexapro) 10 MG tabletIndicati ons:Depressive disorder TAKE 1 TABLET BY MOUTH EVERY EVENING 30 tablet 3 025 Active Trulicity 4.5 MG/0.5ML solution auto-injectorI ndications:Typ e 2 diabetes mellitus with other specified complication, unspecified whether retirement insulin use ([facility]) INJECT ONE PEN (= 4.5MG) SUBCUTANEOUSLY ONCE A WEEK DIRECTED 2 mL 3 025 Active melatonin 3 MG tabletIndicati ons:Mild depression TAKE 1 TABLET BY MOUTH AT BEDTIME 30 tablet 3 025 Active insulin aspart (NovoLOG FLEXPEN) 100 UNIT/ML pen Inject 16 Units under the skin before breakfast, before lunch, and before evening meal. 10 mL 3 025 Active traZODone (Desyrel) 100 MG tabletIndicati ons:Primary insomnia TAKE 1 AND 1/2 TABLETS BY MOUTH AT BEDTIME 45 tablet 3 025 Active Ventolin HFA 108 (90 Base) MCG/ACT inhaler INHALE 2 PUFFS BY MOUTH EVERY 4 TO 6 HOURS NEEDED 18 g 2 025 Active albuterol 108 (90 Base) MCG/ACT inhaler INHALE 2 PUFFS BY MOUTH EVERY 4 TO 6 HOURS NEEDED 18 g 2 025 2024 Discontinued Active Problems Problem Noted [...] of right knee 09/22/2023 Assessment & Plan (10/11/2024 9:39 AM EDT): Exam suggestive of OA, although other etiologies such as gout need to be ruled out Seen by Ortho 06/13/2024 receoved steroid injection Acetaminophen PRN pain. Assessment & Plan (09/22/2023 2:52 PM EDT): [...] asthma without complication 10/14/2022 Assessment & Plan (10/11/2024 9:36 AM EDT): Pt evaluated by Dr Shipman last seen 06/08/2024 On; Xolair. Breo and albuterol MDI. Assessment & Plan (04/12/2024 11:27 AM EST): [...] care of Dr Fuentes last seen 09/23/2021 [facility] health care 10/14/2022 Assessment & Plan (10/11/2024 10:04 AM EDT): PSA 06/06/2024 normal Colonoscopy 06/25/[address] Domínguez recommended repeat 1-3 years given polyp burden Assessment & Plan (04/12/2024 11:30 AM EST): [...] Benign prostatic hyperplasia 06/23/2022 Assessment & Plan (10/11/2024 9:39 AM EDT): Under the care of Urology s/p [facility] Enucleation of the prostate 12/14/2023 Last seen by Urology Assessment & Plan (04/12/2024 11:25 AM EST): [...] 11:24 AM EST): [place] the [place] Client Relationship Consultant [place] [facility] [place] last seen 01/13/2024 Assessment & Plan (02/24/2023 9:24 AM EST): Under the care of Client Relationship Consultant [place] [facility] [place] last seen 01/29/2023 Assessment & Plan (10/14/2022 3:18 PM EDT): Under the care of Dr Fuentes , last seen 09/23/2021 Obstructive sleep apnea syndrome 06/23/2022 Assessment & Plan (10/11/2024 10:03 AM EDT): Uses his Cpap machine with good results Assessment & Plan (10/14/2022 3:18 PM EDT): [...] Hill Bilateral primary osteoarthritis of knee 020 Major depressive disorder, single episode, unspe cified 08/22/2019 Restless legs syndrome 02/09/2019 Primary osteoarthritis, right elbow 02/09/2019 Chronic kidney disease, unspecified 02/09/2019 Essential hypertension 07/28/2011 Overview (06/23/2022): Joined [facility] 10/2021. Frequently misses appointments. Followed by cardiology. Hx of CABG/ ASVCD. Was switched to [facility] pharmacy with medboxes with improved adherence Current therapy: - Metoprolol Tartrate 50mg BID - Amlodipine 10mg daily - Irbesartan 150mg daily - Isosorbide [place] ER 60mg daily Assessment & Plan (10/11/2024 10:02 AM EDT): Patient with Hypertension currently mildly elevated, pt [...] counseled about weight loss. Assessment & Plan (02/24/2023 9:23 AM EST): [...] DM Pure hypercholesterolemia 07/28/2011 Assessment & Plan (10/11/2024 10:01 AM EDT): Most recent Lipid profile from: Lab Results Component Value Date TRIG 83 06/06/2024 TRIG 120 12/25/2022 CHOL 101 06/06/2024 CHOL 133 12/25/2022 LDLCHOLCAL 44 06/06/2024 LDLCHOLCAL 69 12/25/2022 HDL 41 06/06/2024 HDL 40 (L) 12/25/2022 On Crestor 20 mg po at bedtime and Zetia 10 Assessment & Plan (02/24/2023 9:29 AM EST): Most recent Lipid profile from: 12/25/2022 Component Ref Range & Units 2 mo ago 1 yr ago Triglycerides <150 mg/dL 120 86 Comment: Desirable Triglyceride: less than 150 mg/dLBorderline High Triglyceride 150-199 mg/dLHigh Triglyceride: 200-499 mg/dLVery High Triglyceride: greater than or equal to 5OO mg/dL Cholesterol <200 mg/dL 133 Comment: Desirable Cholesterol: less than 200 mg/dLBorderline High Cholesterol: 200-239 mg/dLHigh Cholesterol: greater than 239 mg/dL LDL Cholesterol Calculated <100 mg/dL 69 Comment: Desirable LDL: less than 100 mg/dLNear Optimal/Above Optimal LDL: 110-129 mg/dLBorderline High LDL: 130-159 mg/dLHigh LDL: 160-189 mg/dLVery High LDL: greater than or equal to 190 mg/dL HDL Cholesterol >40 mg/dL 40 Low 50 R On Crestor 20 mg po at bedtime and Zetia 10 Tear film insufficiency 07/28/2011 Type 2 diabetes mellitus wit h circulatory disorder, with long-term current use of insulin 07/28/2011 Assessment & Plan (10/11/2024 10:09 AM EDT): Pt here for a f/u He is [...] on a daily basis. Assessment & Plan (04/12/2024 11:34 AM EST): [...] Patient here for a HDF [place] [facility] [place] and rectal pain. PMH significant [...] 100 mg po qhs Mixed hyperlipidemia 06/23/2022 025 Assessment & Plan (10/14/2022 3:16 PM EDT): Patient with elevated lipids. Most recent lipid profile from 05/22/2021 showed Chol: 122 Trigs 86 HDL 50 LDL 55 Currently on a regimen of: Rosuvastatin 20 mg po daily and Ezetimide 10 mg ( Prescribed by Client Relationship Consultant ) last seen 09/24/2021 . LFTS 05/22/2021 Normal For now will continue with current regimen, will repeat advised to try to adhere to a low cholesterol diet, counseled and educated about diet and exercise, Patient encouraged to come up with a personal goal for weight loss. Anxiety disorder 08/22/2019 06/03/2024 Chronic obstructive pulmonar y disease, unspecified 08/22/2019 10/11/2024 Gastro-esophageal reflux dis ease without esophagitis 08/22/2019 [...] Encounters Date Type Department Care Team Description 10/11/2024 10:00 AM EDT Office Visit [facility] [address] [place] [phone] Darius Eden MD Type 2 diabetes mellitus with diabetic peripheral angiopathy without gangrene, with long-term current use of insulin ([facility]) (Primary Dx); Essential hypertension; Moderate persistent asthma without complication; Pure hypercholesterolemia ; Acute pain of right knee; Benign prostatic hyperplasia with lower urinary tract symptoms, symptom details unspecified; Obstructive sleep apnea syndrome; Preventative health care 10/11/2024 Travel 10/08/2024 Refill [facility] [address] [place] [address] Darius Eden MD 08/26/2024 Refill [facility] [address] [place], [place] [phone] Darius Eden MD Primary insomnia 08/09/2024 Orders Only [facility] [address] [place] [address] Darius Eden MD 08/08/2024 Refill [facility] [address] [place] [address] Darius Eden MD 08/05/2024 Outside Procedure [facility] [address] [place] [address] Lorie Bettencourt, OD Presbyopia (Primary Dx) 08/04/2024 9:30 AM EDT Office Visit [facility] [address] [place] [address] Lorie Bettencourt, OD Regular astigmatism of both eyes (Primary Dx) 07/18/2024 Telephone [facility] [address] [place] [phone] Darius Eden MD Nurse Triage 07/18/2024 Telephone [facility] [address] [place] [phone] Darius Eden MD 07/14/2024 Telephone [facility] [address] [place] [address] Darius Eden MD Durable Medical Equipment 07/14/2024 Refill [facility] [address] [place] [address] Darius Eden MD Mild depression from Last 3 Months Immunizations Immunization Administration Dates Next Due Influenza High-dose Quadriva [...] Mass Index 31.12 10/11/2024 9:46 AM EDT Plan of Treatment Health Maintenance Due Date Last Done Comments Zoster Vaccines (1 of 2) 1998 RSV Patients and Patients Aged 60 years or older (1 - 1-dose 75+ series) 08/20/2023 COVID-19 Vaccine ( season) 2024 06/10/2020, 05/13/2020 Influenza Vaccine (#1) 2024 , 12/25/2022, 12/12/2021, Additional history exists SDOH Screening 10/15/2024 10/16/2023 Depression Screening 11/18/2024 11/19/2023, 11/19/19 24 Diabetes: Hemoglobin A1C 01/10/2025 025, 06/06/2024, 06/03/2024, Additional history exists Alcohol/Substance Use Screening 04/12/2025 04/12/2024 Diabetes: Foot Exam 06/03/2025 06/03/2024, 06/03/2024, 06/03/2024, Additional history exists Diabetes: Urine Protein Screening 06/06/2025 06/06/2024, 05/22/2021 Lipid Panel 06/06/2025 06/06/2024, 1107/2022, 05/22/2021 Eye Exam 07/12/2025 07/12/2024, 0604/2024, 07/12/2024, Additional history exists Tobacco Screening 10/11/2025 10/11/2024 DTaP/Tdap/Td Vaccines (2 - Td or Tdap) 04/01/2026 04/01/2016, 03/26/1995 Pneumococcal Vaccine: 50+ Years Completed 04/01/2016, 09/13/2013, 10/31/1999 Hepatitis C Screening Completed 05/22/2021 Colonoscopy Discontinued 06/25/2023 Colorectal Cancer Screening Discontinued CT Colonography Discontinued FIT DNA/Cologuard Discontinued FIT Discontinued FOBT Discontinued HIB Vaccines Aged Out No longer eligi [...] on patient's age to complete this topic Sigmoidoscopy Discontinued Procedures Procedure Name Priority Date/Time Associated Diagnosis Comments POCT GLUCOSE Routine 10/11/2024 10:20 AM EDT Type 2 diabetes mellitus with diabetic peripheral angiopathy without gangrene, with long-term current use of insulin ([facility]) POCT GLYCOSYLATED HEMOGLOBIN (HGB A1C) Routine 10/11/2024 10:19 AM EDT Type 2 diabetes mellitus with diabetic peripheral angiopathy without gangrene, with long-term current use of insulin ([facility]) ALBUMIN, RANDOM URINE W/CREATININE Routine 06/06/2024 9:49 AM EDT Type 2 diabetes mellitus with hyperglycemia, with long-term current use of insulin ([facility]) LIPID PANEL, STANDARD Routine 06/06/2024 9:49 AM EDT Coronary arteriosclerosis HM COLONOSCOPY Routine 06/25/2023 ZZZ HISTORICAL HEPATITIS C AB W/REFL TO HCV RNA, QN, PCR Routine 05/22/2021 8:46 AM EDT from Last 3 Months or Most Recently Relevant to Health Maintenance Results * POCT glucose manually resulted (10/11/2024 10:20 AM EDT) Glucose Blood, POC 170 60 - 200 mg/dL QC Media Lot # [id number] Lot# Expiration Date 244, Blood Capillary blood specimen / Unknown 10/11/2024 10:20 AM EDT us Darius Christian MD POINT OF CARE TEST EN TER/EDIT ORDERABLES Final Result * (ABNORMAL) POCT glycosylated hemoglobin (Hgb A1c) (10/11/2024 10:19 AM EDT) Hemoglobin A1C 7.2(A) 4.0 - 5.7 % QC Media Lot # [id number] Lot# Expiration Date [id number] Blood Capillary blood specimen / Unknown 10/11/2024 10:19 AM EDT us Darius Christian MD POINT OF CARE TEST EN TER/EDIT ORDERABLES Final Result * Albumin, Random Urine W/Creatinine (06/06/2024 9:49 AM EDT) Creatinine, Urine 387.16 mg/dL [facility] Microalbumin Urine 61.0 mg/L [facility] Microalbum Creatinine Ratio Ur 15.7 <30 ug/mg cr [facility] Comment:Albumin/Creatinine R at Reference Ranges: Normal: < 30 ug/mg creatinine Microalbuminuria: 30 - 300 ug/mg creatinineClinical Albuminuria: > 300 ug/mg creatinine Urine (Urine, Random) 06/06/2024 9:49 AM EDT 06/06/2024 11:03 AM EDT Avery Ceballos CNP LAB URINE ORDERABLES Cassidy l Result Performing Organization Address [facility] Co de Phone Number [facility] [address] [place] [phone] * Lipid Panel, Standard (06/06/2024 9:49 AM EDT) Triglycerides 83 <150 mg/dL [facility] Comment:Desirable Triglyceri de: less than 150 mg/dLBorderline High Triglyceride 150-199 mg/dLHigh Triglyceride: 200-499 mg/dLVery High Triglyceride: greater than or equal to 5OO mg/dL Cholesterol 101 <200 mg/dL [facility] Comment:Desirable Cholestero l: less than 200 mg/dLBorderline High Cholesterol: 200-239 mg/dLHigh Cholesterol: greater than 239 mg/dL LDL Cholesterol Calculated 44 <100 mg/dL [facility] Comment:Desirable LDL: less than 100 mg/dLNear Optimal/Above Optimal LDL: 110- 129 mg/dLBorderline High LDL: 130-159 mg/dLHigh LDL: 160-189 mg/dLVery High LDL: greater than or equal to 190 mg/dL HDL Cholesterol 41 >40 mg/dL [facility] Comment:Desirable HDL: great er than 40 mg/dL Note: This HDL assay may give artificially low results in patients with liver disease. Blood Venous blood specimen / Unknown 06/06/2024 9:49 AM EDT 06/06/2024 10:57 AM EDT Darius Christian MD LAB BLOOD ORDERABLES Final Result Performing Organization Address City/[facility]/ZIP Co de Phone Number [facility] [address] [place] [phone] * Hm Colonoscopy (06/25/2023) Colonoscopy Normal Normal Impressions Darius Eden MD - 06/25/2023 Tubular Adenoma us Historical Provider HEALTH MAINTENANCE Final Result * HEPATITIS C AB W/REFL TO HCV RNA, QN, PCR (05/22/2021 8:46 AM EDT) HEPATITIS C ANTIBODY NON-REACT TABATHA NON-REACT TABATHA [facility] INDEX 0.01 <1.00 [facility] Comment: HCV antibody was non-reactive. There is no laboratory evidence of HCV infection. In most cases, no further action is required. However, if recent HCV exposure is suspected, a test for HCV RNA (test code 67929) is suggested. For additional information please refer to http://education.E-Sign/faq/XKW79c6 (This link is being provided for informational/ educational purposes only.) 05/22/2021 8:46 AM EDT Darius Christian MD HISTORICAL/NON ORDERA BLE LABS Final Result [facility] [address] from Last 3 Months or Most Recently Relevant to Health Maintenance Insurance [place] [address] [place] [id number] [facility] Care Teams Bottom Saw Operator Relationship Specialty Start Date End Date Darius Eden MD [address] [place] [address] PCP - General Internal Medicine 05/21/21 Tip Sims, PharmD [address] [place] [address] Pharmacist Internal Medicine 03/20/22 [facility] 03/20/22 [facility] 12/31/23
--- OUTSIDE RECORDS SUMMARY | 2024-10-14 09:19 | XMS_ITS | Encounter Summary ---
Author Organization [employer] Address [address] [facility] 7 [place] [address] Care Team Providers Care Prop And Effects Designer Name Role Phone Darius Eden MD Primary Care Provide r Tip Sims PharmD Unavailable [phone] Reason for Visit * Reason Onset Date Comments Call Back Request 01/07/2023 Encounter Details Date Type Department Care Team ([facility] Contact Info) Description 01/07/2023 Telephone [facility] [address] [place], [place] [phone] Darius Eden MD [address] [place], [place] [phone] Call Back Request Social History Tobacco Use [...] documented as of this encounter Care Teams Prop And Effects Designer Relationship Specialty Start Date End Date Darius Eden MD [address] [place] [address] PCP - General Internal Medicine 05/21/21 Tip Sims PharmD [address] [place] [phone] Pharmacist Internal Medicine 03/20/22 [facility] 03/20/22 [facility] 12/31/23 documented as of this encounter
--- OUTSIDE RECORDS SUMMARY | 2024-10-14 09:19 | XMS_ITS | Encounter Summary ---
Author Organization [employer] Address [address] [facility] [address] [place] [address] Care Team Providers Care Door Fitter Name Role Phone Darius Eden MD Primary Care Provide r Tip Sims PharmD Unavailable [phone] Reason for Visit * Reason Comments Med Refill Encounter Details Date Type Department Care Team (Late st Contact Info) Description 12/05/2022 Refill [facility] [address] [place], [place] [phone] Darius Eden MD [address] [place], [place] [phone] Heartburn Social History Tobacco Use Types Packs/Day [...] documented as of this encounter Care Teams Door Fitter Relationship Specialty Start Date End Date Darius Eden MD [address] [place] [address] PCP - General Internal Medicine 05/21/21 Tip Sims PharmD [address] [place] [address] Pharmacist Internal Medicine 03/20/22 [facility] 03/20/22 [facility] 12/31/23 documented as of this encounter
--- OUTSIDE RECORDS SUMMARY | 2024-10-14 09:19 | XMS_ITS | Encounter Summary ---
Author Organization [employer] Address [address] [facility] [address] [place] [address] Care Team Providers Care Welfare Eligibility Worker Name Role Phone Darius Eden MD Primary Care Provide r Tip Sims PharmD Unavailable [phone] Reason for Visit * Reason Comments Med Refill Encounter Details Date Type Department Care Team (Late st Contact Info) Description 02/11/2024 Refill [facility] [address] [place], [place] [phone] Darius Eden MD [address] [place], [place] [phone] Depressive disorder; Primary insomnia Social History Tobacco [...] documented as of this encounter Care Teams Welfare Eligibility Worker Relationship Specialty Start Date End Date Darius Eden MD [address] [place] [address] PCP - General Internal Medicine 05/21/21 Tip Sims PharmD [address] [place] [address] Pharmacist Internal Medicine 03/20/22 [facility] 03/20/22 [facility] 12/31/23 documented as of this encounter
--- OUTSIDE RECORDS SUMMARY | 2024-10-14 09:19 | XMS_ITS | Encounter Summary ---
Author Organization [employer] Address [address] [facility] [address] [place] [address] Care Team Providers Care Licensed Embalmer Name Role Phone Darius Eden MD Primary Care Provide r Tip Sims PharmD Unavailable [phone] Reason for Visit * Reason Comments Med Refill Encounter Details Date Type Department Care Team ([facility] st Contact Info) Description 01/19/2023 Refill [facility] [address] [place], [place] [phone] Darius Eden MD [address] [place], [place] [phone] Mild depression Social History Tobacco Use Types [...] documented as of this encounter Care Teams Licensed Embalmer Relationship Specialty Start Date End Date Darius Eden MD [address] [place] [address] PCP - General Internal Medicine 05/21/21 Tip Sims PharmD [address] [place] [address] Pharmacist Internal Medicine 03/20/22 [facility] 03/20/22 [facility] 12/31/23 documented as of this encounter
--- OUTSIDE RECORDS SUMMARY | 2024-10-14 09:19 | XMS_ITS | Encounter Summary ---
Author Organization [employer] Address [address] [facility] [address] [place] [address] Care Team Providers Care Flame Hardener Name Role Phone Darius Eden MD Primary Care Provide r Tip Sims PharmD Unavailable [phone] Reason for Visit * Reason Comments Med Refill Encounter Details Date Type Department Care Team (Late st Contact Info) Description 02/16/2024 Refill [facility] [address] [place], [place] [phone] Darius Eden MD [address] [place], [place] [phone] Primary insomnia Social History Tobacco Use Types [...] documented as of this encounter Care Teams Flame Hardener Relationship Specialty Start Date End Date Darius Eden MD [address] [place] [address] PCP - General Internal Medicine 05/21/21 Tip Sims PharmD [address] [place] [address] Pharmacist Internal Medicine 03/20/22 [facility] 03/20/22 [facility] 12/31/23 documented as of this encounter
== END 2024-10-14 09:17 | disposition home or self-care (01) ==
LOC: HO.HOS 08:45
PROVIDERS: PCP Internal Medicine
DX: M17.0 Bilateral primary osteoarthritis of knee (principal)
CPT/HCPCS: 20610

== ENCOUNTER → 2024-10-14 08:44 | Outpatient (BNVA) | payer MEDICARE, MEDICAID, SELFPAY | PROVIDERS: PCP Internal Medicine | DX: M17.0 Bilateral primary osteoarthritis of knee (principal) | CPT/HCPCS: 20610; J1100; J2003 ==

== ENCOUNTER 2024-12-07 09:43 | Outpatient (AMB) | payer MEDICARE, MEDICAID, SELFPAY ==
--- NOTE | 2024-12-07 09:54 | MHC.OFFVIS ---
Vital Signs 12/07/24 09:55 Height 5 ft 6 in Weight 190 lb BMI 30.7 BP 108/62 Blood Pressure Location Lt brachial Position Sitting Pulse 75 Pulse Source Pulse Oximeter Pulse Oximetry (%) 98 Oxygen Delivery Method Room Air Intake Visit Reasons: Asthma Horseback Riding Instructor Required: Yes Horseback Riding Instructor Name: Rosaline Arreola Akshat Information Interpreted: non-clinical & clinical Allergies No Known Allergies (No Known Allergies*) Allergy (Verified 12/07/24 10:01) HPI HPI Asthma: Details: 74-year-old gentleman, former 10 pack year smoker, quit 1999, now followed for asthma/COPD overlap syndrome, environmental allergies, and DEANDRE.? After the last office visit patient restarted on Xolair and continued on Breo and albuterol MDI with significant improvement in his asthma control. He denies any recent exacerbations. His GERD symptoms continue to be controlled on twice a day PPI. He continues to use CPAP with good control of underlying DEANDRE. [facility] Medical History Osteoarthritis of knees, bilateral Type 2 diabetes mellitus with unspecified complications Sepsis Hyperthyroidism Multinodular thyroid HLD (hyperlipidemia) HTN (hypertension) Obesity NSTEMI (non-ST elevated myocardial infarction) CAD (coronary artery disease) Diabetes mellitus Myocardial infarct Surgical History History of esophagogastroduodenoscopy (EGD) Hx of colonoscopy Hx of ultrasound guided needle biopsy Hx of CABG (~07/2016) Family History Mother Cardiovascular disease Father Medical history unknown Sister Cancer Brother Cancer Social History Household Members: Family Housing: Apartment Are you a primary personal care worker to a significant other at home: No Do you presently have visiting nurse or other home services: No Alcohol intake: former Patient Tobacco Use Status: Former Tobacco user Second Hand Smoke Exposure: No service: No Current occupational status: unemployed Review of Systems Const Denies daytime sleepiness, Denies excessive sweating, Denies fatigue, Denies fever(s), Denies lethargy, Denies malaise, Denies night sweats, Denies snoring and Denies weight loss Eyes Denies blurry vision and Denies itchy eyes ENT Denies nasal congestion, Denies post nasal drip, Denies sinus pain, Denies sinus pressure and Denies other ( Thrush) Card Denies chest pain, Denies pedal edema, Denies dyspnea, Denies orthopnea and Denies paroxysmal nocturnal dyspnea Resp Denies cough, Denies hemoptysis, Denies excessive phlegm production, Denies dyspnea, Denies snoring and Denies wheezing GI Denies abdominal pain and Denies heartburn Musc Denies myalgias, Denies arthralgias and Denies joint swelling Skin/Breast Denies rash Neuro Denies memory loss and Denies seizure-like activity Psych Denies abnormal sleep pattern, Denies anxiety and Denies memory loss Endo Denies excessive sweating, Denies fatigue and Denies heat intolerance Glenn/Lymph Denies easy bruising Aller/Immun Denies itchy eyes, Denies seasonal rhinorrhea and Denies wheezing Physical Exam Vital Signs: Last Vital Signs Pulse 75 12/07/24 09:55 BP 108/62 12/07/24 09:55 Pulse Ox 98 12/07/24 09:55 Oxygen Delivery Method Room Air 12/07/24 09:55 BMI result Body Mass Index 30.7 Const General: no acute distress and alert Nutritional Appearance: not obese Orientation/consciousness: Other orientation findings ( oriented) HEENT Head: Yes atraumatic Eyes General: appearance normal, both eyes and all related structures Sclerae: sclerae normal EOM: EOMs intact bilaterally Neck Neck: Yes supple Lymphatic: no lymphadenopathy noted Resp Effort & Inspection: normal respiratory effort and no use of accessory muscles Auscultation: clear to auscultation bilaterally Cardio Rate: regular rate Rhythm: regular rhythm Heart sounds: no gallops, no murmurs and no rubs Skin General skin exam: other ( warm) Extrem General: No clubbing, No cyanosis and No edema Assessment & Plan Assessment & Plan (1) Severe persistent asthma: Code(s): J45.50 - Severe persistent asthma, uncomplicated Category: Medical Plan: Well controlled on current regimen of Xolair, Breo, and albuterol MDI. Continue current regimen. (2) DEANDRE on CPAP: Code(s): G47.33 - Obstructive sleep apnea (adult) (pediatric); Z99.89 - Dependence on other enabling machines and devices Category: Medical Plan: Well controlled on current CPAP therapy. Continue CPAP therapy. (3) Environmental allergies: Code(s): Z91.09 - Other allergy status, other than to drugs and biological substances Category: Medical Plan: Excellent control on Xolair. Continue current regimen. (4) GERD (gastroesophageal reflux disease): Code(s): K21.9 - Gastro-esophageal reflux disease without esophagitis Category: Medical Plan: Continues to be well controlled on PPI twice a day. Continue current regimen of omeprazole 40 mg b.i.d.. Coding Level of Care Code Est Pt Level 4 (28262) Complex EM visit Add On G2211 Diagnoses Severe persistent asthma J45.50 DEANDRE on CPAP G47.33; Z99.89 Environmental allergies Z91.09 GERD (gastroesophageal reflux disease) K21.9
[2024-12-07 09:55] VITALS: BP 108/62; PULSE 75; O2SAT 98; BMI 30.7
--- OUTSIDE RECORDS SUMMARY | 2024-12-07 11:38 | XMS_ITS | Encounter Summary ---
Author Organization [employer] Address [address] [place] [address] 7 [place] [address] Care Team Providers Care Trashman Name Role Phone Darius Eden MD Primary Care Provide r Tip Sims PharmD Unavailable [phone] Encounter Details Date Type Department Care Team (Late st Contact Info) Description 03/05/2022 Orders Only [facility] CHC MED & PEDS [address] [place] [address] Rosaline Lamb LPN Social History Tobacco Use [...] Care Team (Late st Contact Info) Description 01/19/2025 10:15 AM EST Office Visit [facility] MEDICINE [address] [place], [place] [phone] Darius Eden MD [address] [place], [place] [phone] documented as of this encounter Visit Diagnoses Not on filedocumented in this encounter Care Teams Trashman Relationship Specialty Start Date End Date Darius Eden MD [address] [place], [place] [phone] PCP - General Internal Medicine 05/21/21 Tip Sims, PharmD [address] [place] [address] [phone] Pharmacist Internal Medicine 03/20/22 [facility] 03/20/22 [facility] 12/31/23 documented as of this encounter
--- OUTSIDE RECORDS SUMMARY | 2024-12-07 11:38 | XMS_ITS | Encounter Summary ---
Author Organization [employer] Address [address] [place] [address] 7 [place] [address] Care Team Providers Care Welder Fitter Arc Name Role Phone Darius Eden MD Primary Care Provide r Tip Sims PharmD Unavailable [phone] Encounter Details Date Type Department Care Team (Late st Contact Info) Description 03/05/2022 Orders Only [facility] MEDICINE [address] [place] [phone] Britney Burton LPN Social History Tobacco Use [...] Description 01/19/2025 10:15 AM EST Office Visit [facility] MEDICINE [address] [place] [address] [phone] Darius Eden MD [address] [place] [address] [phone] documented as of this encounter Visit Diagnoses Not on filedocumented in this encounter Care Teams Welder Fitter Arc Relationship Specialty Start Date End Date Darius Eden MD [address] [place] [phone] PCP - General Internal Medicine 05/21/21 Tip Sims, PharmD [address] [place] [phone] Pharmacist Internal Medicine 03/20/22 [facility] 03/20/22 [facility] 12/31/23 documented as of this encounter
--- OUTSIDE RECORDS SUMMARY | 2024-12-07 11:38 | XMS_ITS | Encounter Summary ---
Author Organization [employer] Address [address] [facility] 7 [place] [address] Care Team Providers Care Or First Assist Registered Nurse Name Role Phone Darius Eden MD Primary Care Provide r Tip Sims PharmD Unavailable [phone] Reason for Visit * Reason Comments Med Refill Encounter Details Date Type Department Care Team ([facility] st Contact Info) Description 01/19/2023 Refill [facility] MEDICINE [address] [place], [place] [phone] Darius Eden MD [address] [place], [place] [phone] Mild depression Social History Tobacco Use Types [...] Description 01/19/2025 10:15 AM EST Office Visit [facility] MEDICINE [address] [place] [phone] Darius Eden MD [address] [place] [address] documented as of this encounter Visit Diagnoses Diagnosis Mild depression Depressive disorder, not elsewhere classified documented in this encounter Additional Health Concerns Assessment Noted Time PHQ-9 Depression Total Score: 6 10/15/19 23 3:08 PM EDT documented as of this encounter Care Teams Or First Assist Registered Nurse Relationship Specialty Start Date End Date Darius Eden MD [address] [place] [phone] PCP - General Internal Medicine 05/21/21 Tip Sims, Carlos [address] [place] [phone] Pharmacist Internal Medicine 03/20/22 [facility] 03/20/22 [facility] 12/31/23 documented as of this encounter
--- OUTSIDE RECORDS SUMMARY | 2024-12-07 11:38 | XMS_ITS | Encounter Summary ---
Author Organization [employer] Address 75 [facility] 7 [place] [address] Care Team Providers Care Art Objects Salesperson Name Role Phone Darius Eden MD Primary Care Provide r Tip Sims PharmD Unavailable [phone] Reason for Visit * Reason Comments Med Change Request Encounter Details Date Type Department Care Team ([facility] Contact Info) Description 11/20/2023 Refill [facility] MEDICINE [address] [place], [place] [phone] Darius Eden MD [address] [place], [place] [phone] Primary insomnia Social History Tobacco Use Types [...] Description 01/19/2025 10:15 AM EST Office Visit [facility] MEDICINE [address] [place] [phone] Darius Eden MD [address] [place] [address] documented as of this encounter Visit Diagnoses Diagnosis Primary insomnia Persistent disorder of initiating or maintaining sleep documented in this encounter Additional Health Concerns Assessment Noted Time PHQ-9 Depression Total Score: 0 11/19/19 24 10:20 AM EDT documented as of this encounter Care Teams Art Objects Salesperson Relationship Specialty Start Date End Date Darius Eden MD [address] [place] [phone] PCP - General Internal Medicine 05/21/21 Tip Sims, Carlos [address] [place] [phone] Pharmacist Internal Medicine 03/20/22 [facility] 03/20/22 [facility] 12/31/23 documented as of this encounter
--- OUTSIDE RECORDS SUMMARY | 2024-12-07 11:38 | XMS_ITS | Encounter Summary ---
Author Organization [employer] Address 75 [facility] 7t [place] [address] Care Team Providers Care Gasket Supervisor Name Role Phone Darius Eden MD Primary Care Provide r Tip Sims PharmD Unavailable [phone] Reason for Visit * Reason Comments Med Refill Encounter Details Date Type Department Care Team (Late st Contact Info) Description 02/16/2024 Refill [facility] CHC MED & PEDS [address] [place], [place] [phone] Darius Eden MD [address] [place], [place] [phone] Primary insomnia Social History Tobacco Use Types [...] Description 01/19/2025 10:15 AM EST Office Visit [facility] MEDICINE [address] [place] [phone] Darius Eden MD [address] [place] [phone] documented as of this encounter Visit Diagnoses Diagnosis Primary insomnia Persistent disorder of initiating or maintaining sleep documented in this encounter Additional Health Concerns Assessment Noted Time PHQ-9 Depression Total Score: 0 11/19/19 24 10:20 AM EDT documented as of this encounter Care Teams Gasket Supervisor Relationship Specialty Start Date End Date Darius Eden MD [address] [place] [phone] PCP - General Internal Medicine 05/21/21 Tip Sims, DevoraD [address] [place] [phone] Pharmacist Internal Medicine 03/20/22 [facility] 03/20/22 [facility] 12/31/23 documented as of this encounter
--- OUTSIDE RECORDS SUMMARY | 2024-12-07 11:38 | XMS_ITS | Clinical Summary ---
Author Organization [employer] Address [address] [place] [address] 7 [place] [address] Care Team Providers Care French Translator Name Role Phone Darius Eden MD Primary Care Provide r Tip Sims PharmD Unavailable [phone] Allergies No known active allergies Medications Breo [...] mellitus with other specified complication, unspecified whether nursing home insulin use (HCC) Take 1 tablet by mouth Once per day. 30 tablet 11 Active insulin pen needle (Easy Touch Pen Felton) 31G X 8 mm misc USE DIRECTED FOUR TIMES DAILY 100 each Active Acetaminophen Extra Strength 500 MG tabletIndicati ons:Acute pain of right knee TAKE 2 TABLETS BY MOUTH EVERY 8 HOURS NEEDED FOR PAIN 60 tablet Active insulin glargine (Basaglar KwikPen) 100 UNIT/ML pen Inject 80 Units under the skin at bedtime. 3 mL 12 2025 Active Blood Glucose Monitoring Suppl (GenJuice Verio Flex System) w/Device kitIndications :Type 2 diabetes mellitus without complication, unspecified whether nursing home insulin use TEST BLOOD SUGAR EVERY DAY 1 kit Active Lancets (AsantaeTouch Delica Plus [id number]) miscIndication s:Type 2 diabetes mellitus without complication, unspecified whether nursing home insulin use TEST BLOOD SUGAR THREE TIMES DAILY 100 each 1 Active glucose blood (AsantaeTouch Verio) test stripIndicatio ns:Type 2 diabetes mellitus without complication, unspecified whether nursing home insulin use TEST BLOOD SUGAR THREE TIMES DAILY 100 strip 1 025 Active melatonin 3 MG tabletIndicati [...] HOURS NEEDED 18 g 2 025 Active escitalopram (Lexapro) 10 MG tabletIndicati ons:Depressive disorder TAKE 1 TABLET BY MOUTH EVERY EVENING 30 tablet 3 025 Active Trulicity 4.5 MG/0.5ML solution auto-injectorI ndications:Typ e 2 diabetes mellitus with other specified complication, unspecified whether nursing home insulin use (HCC) INJECT ONE PEN (= 4.5MG) SUBCUTANEOUSLY ONCE A WEEK DIRECTED 2 mL 3 025 Active Trulicity 4.5 MG/0.5ML solution auto-injectorI ndications:Typ e 2 diabetes mellitus with other specified complication, unspecified whether nursing home insulin use (HCC) INJECT ONE PEN (= 4.5MG) SUBCUTANEOUSLY ONCE A WEEK DIRECTED 2 mL 3 025 2024 Discontinued Active Problems Problem Noted [...] Preventative health care 10/14/2022 Assessment & Plan (10/11/2024 [...] 11:24 AM EST): Under the care of Educational Director at [facility] , last seen 01/13/2024 Assessment & Plan (02/24/2023 9:24 AM EST): Under the care of Educational Director at [facility] , last seen 01/29/2023 [...] 02/09/2019 Essential hypertension 07/28/2011 Overview (06/23/2022): Joined [facility] 10/2021. Frequently misses appointments. Followed by cardiology. Hx of CABG/ ASVCD. Was switched to [facility] pharmacy with medboxes with improved adherence [...] Patient here for a HDF Admitted to [facility] for prostate and rectal [...] and Ezetimide 10 mg ( Prescribed by Educational Director ) last seen 09/24/2021 . LFTS 05/22/2021 [...] Encounters Date Type Department Care Team Description 12/06/2024 Telephone [facility] MEDICINE [address] [place] [address] Darius Eden MD Referral 11/23/2024 Refill [facility] MEDICINE [address] [place] [address] Darius Eden MD Type 2 diabetes mellitus with other specified complication, unspecified whether nursing home insulin use (HCC) 10/24/2024 Telephone [facility] MEDICINE [address] [place] [address] Darius Eden MD January10/22/2024 Refill [facility] CHC MED & PEDS [address] [place] [address] Salima Concepcion MD Depressive disorder 10/11/2024 10:00 AM EDT Office Visit [facility] MEDICINE [address] [place] [address] Darius Eden MD Type 2 diabetes mellitus with diabetic peripheral angiopathy without gangrene, with long-term current use of insulin (CMS/HCC) (Primary Dx); Essential hypertension; Moderate persistent asthma without complication; Pure hypercholesterolemia; Acute pain of right knee; Benign prostatic hyperplasia with lower urinary tract symptoms, symptom details unspecified; Obstructive sleep apnea syndrome; Preventative health care 10/11/2024 Travel 10/08/2024 Refill [facility] [address] [place] [address] Darius Eden MD from Last 3 Months Immunizations Immunization Administration [...] 10/11/2024 9:46 AM EDT Plan of Treatment Upcoming Encounters Date Type Department Care Team (Late st Contact Info) Description 01/19/2025 10:15 AM EST Office Visit [facility] [address] [facility] [place] [address] Darius Eden MD [address] [facility] [place] [address] Health Maintenance Due Date Last Done Comments [...] 05/22/2021 Lipid Panel 06/06/2025 06/06/2024, 12/10, 05/22/2021 Eye Exam 07/12/2025 07/12/2024, 06/0 04/2024, 07/12/2024, Additional history exists Tobacco Screening 10/11/2025 [...] gangrene, with long-term current use of insulin ([facility]) POCT GLYCOSYLATED HEMOGLOBIN (HGB A1C) Routine 10/11/2024 10:19 AM EDT Type 2 diabetes mellitus with diabetic peripheral angiopathy without gangrene, with long-term current use of insulin ([facility]) ALBUMIN, RANDOM URINE W/CREATININE Routine 06/06/2024 9:49 AM EDT Type 2 diabetes mellitus with hyperglycemia, with long-term current use of insulin ([facility]) LIPID PANEL, STANDARD Routine 06/06/2024 9:49 AM [...] Media Lot # [id number] Lot# Expiration Date 682, Blood Capillary blood specimen / Unknown 10/11/2024 10:20 AM EDT Darius Christian MD POINT OF CARE TEST EN TER/EDIT ORDERABLES Final Result * (ABNORMAL) POCT glycosylated hemoglobin (Hgb A1c) (10/11/2024 10:19 AM EDT) Hemoglobin A1C 7.2(A) 4.0 - 5.7 % QC Media Lot # [id number] Lot# Expiration Date Blood Capillary blood specimen / Unknown 10/11/2024 10:19 AM EDT Darius Christian MD POINT OF CARE TEST EN TER/EDIT ORDERABLES Final Result * Albumin, Random Urine W/Creatinine (06/06/2024 9:49 AM EDT) Creatinine, Urine 387.16 mg/dL [facility] Microalbumin Urine 61.0 mg/L [facility] Microalbum Creatinine Ratio Ur 15.7 <30 ug/mg cr [facility] Comment:Albumin/Creatinine R atio Reference Ranges: Normal: < 30 ug/mg creatinine Microalbuminuria: 30 - 300 ug/mg creatinineClinical Albuminuria: > 300 ug/mg creatinine Urine (Urine, Random) 06/06/2024 9:49 AM EDT 06/06/2024 11:03 AM EDT Avery Ceballos [facility] URINE ORDERABLES Cassidy l Result [facility] [address] [place] [phone] * Lipid Panel, Standard (06/06/2024 9:49 AM EDT) Triglycerides 83 <150 mg/dL [facility] Comment:Desirable Triglyceri de: less than 150 mg/dLBorderline High Triglyceride 150-199 mg/dLHigh Triglyceride: 200-499 mg/dLVery High Triglyceride: greater than or equal to 5OO mg/dL Cholesterol 101 <200 mg/dL [facility] Comment:Desirable Cholestero l: less than 200 mg/dLBorderline High Cholesterol: 200-239 mg/dLHigh Cholesterol: greater than 239 mg/dL LDL Cholesterol Calculated 44 <100 mg/dL [facility] Comment:Desirable LDL: less than 100 mg/dLNear Optimal/Above Optimal LDL: 110- 129 mg/dLBorderline High LDL: 130-159 mg/dLHigh LDL: 160-189 mg/dLVery High LDL: greater than or equal to 190 mg/dL HDL Cholesterol 41 >40 mg/dL [facility] Comment:Desirable HDL: great er than 40 mg/dL Note: This HDL assay may give artificially low results in patients with liver disease. Blood Venous blood specimen / Unknown 06/06/2024 9:49 AM EDT 06/06/2024 10:57 AM EDT Darius Christian MD LAB BLOOD ORDERABLES Final Result [facility] [address] [place] [phone] * Colonoscopy (06/25/2023) Colonoscopy Normal Normal Impressions Darius Eden MD - 06/25/2023 Tubular Adenoma Historical Provider HEALTH MAINTENANCE Final Result * HEPATITIS C AB W/REFL TO HCV RNA, QN, PCR (05/22/2021 8:46 AM EDT) HEPATITIS C ANTIBODY NON-REACT TABATHA NON-REACT TAB[facility]HA [facility] INDEX 0.01 <1.00 [facility] Comment: HCV antibody was non-reactive. There is no laboratory evidence of HCV infection. In most cases, no further action is required. However, if recent HCV exposure is suspected, a test for HCV RNA (test code 24767) is suggested. For additional information please refer to http://education.Surgient/faq/VEE40f7 (This link is being provided for informational/ educational purposes only.) 05/22/2021 8:46 AM EDT us Darius Christian MD HISTORICAL/NON ORDERA BLE LABS Final Result [facility] [address] from Last 3 Months or Most Recently Relevant to Health Maintenance Insurance MEDICARE [facility] STANDARD Care Teams French Translator Relationship Specialty Start Date End Date Darius Eden MD [address] [place] [address] PCP - General Internal Medicine 05/21/21 Tip Sims, PharmD [address] [place] [phone] Pharmacist Internal Medicine 03/20/22 [facility] 03/20/22 [facility] 12/31/23
--- OUTSIDE RECORDS SUMMARY | 2024-12-07 11:38 | XMS_ITS | Encounter Summary ---
Author Organization [employer] Address [address] [facility] 7t [place] [address] Care Team Providers Care Bag Machine Helper Name Role Phone Darius Eden MD Primary Care Provide r Tip Sims PharmD Unavailable [phone] Reason for Visit * Reason Comments Med Refill Encounter Details Date Type Department Care Team (Late st Contact Info) Description 02/11/2024 Refill [facility] CHC MED & PEDS [address] [place], [place] [phone] Darius Eden MD [address] [place], [place] [phone] Depressive disorder; Primary insomnia Social History Tobacco [...] Description 01/19/2025 10:15 AM EST Office Visit [facility] MEDICINE [address] [place] [phone] Darius Eden MD [address] [place] [phone] documented as of this encounter Visit Diagnoses Diagnosis Depressive disorder Depressive disorder, not elsewhere classified Primary insomnia Persistent disorder of initiating or maintaining sleep documented in this encounter Additional Health Concerns Assessment Noted Time PHQ-9 Depression Total Score: 0 11/19/19 24 10:20 AM EDT documented as of this encounter Care Teams Bag Machine Helper Relationship Specialty Start Date End Date Darius Eden MD [address] [place] [address] PCP - General Internal Medicine 05/21/21 Tip Sims PharmD [address] [place] [phone] Pharmacist Internal Medicine 03/20/22 [facility] 03/20/22 [facility] 12/31/23 documented as of this encounter
--- OUTSIDE RECORDS SUMMARY | 2024-12-07 11:38 | XMS_ITS | Encounter Summary ---
Author Organization [employer] Address [address] [facility] 7 [place] [address] Care Team Providers Care Video Machines Mechanic Name Role Phone Darius Eden MD Primary Care Provide r Tip Sims PharmD Unavailable [phone] Encounter Details Date Type Department Care Team ([facility] st Contact Info) Description 07/18/2024 Telephone [facility] 230 [place], [place] [phone] Darius Eden MD 230 [place], [place] [phone] Social History Tobacco Use Types Packs/Day Years [...] Description 01/19/2025 10:15 AM EST Office Visit [facility] [address] [place] [phone] Darius Eden MD [address] [place] [address] documented as of this encounter Visit Diagnoses Not on filedocumented in this encounter Additional Health Concerns Assessment Noted Time PHQ-9 Depression Total Score: 0 11/19/19 10:20 AM EDT documented as of this encounter Care Teams Video Machines Mechanic Relationship Specialty Start Date End Date Darius Eden MD [address] [place] [phone] PCP - General Internal Medicine 05/21/21 Tip Sims, Carlos [address] [place] [address] [phone] Pharmacist Internal Medicine 03/20/22 [facility] 03/20/22 [facility] 12/31/23 documented as of this encounter
--- OUTSIDE RECORDS SUMMARY | 2024-12-07 11:38 | XMS_ITS | Encounter Summary ---
Author Organization [employer] Address 75 [facility] 7 [place] [address] Care Team Providers Care Waste Water Treatment Plant Operator Name Role Phone Darius Eden MD Primary Care Provide r Tip Sims PharmD Unavailable [phone] Reason for Visit * Reason Onset Date Comments Call Back Request 01/07/2023 Encounter Details Date Type Department Care Team ([facility] Contact Info) Description 01/07/2023 Telephone [facility] 230 [place], [place] [phone] Darius Eden MD 230 [place], [place] [phone] Call Back Request Social History Tobacco Use [...] Description 01/19/2025 10:15 AM EST Office Visit [facility] [address] [place] [address] Darius Eden MD [address] [place] [address] documented as of this encounter Visit Diagnoses Not on filedocumented in this encounter Additional Health Concerns Assessment Noted Time PHQ-9 Depression Total Score: 6 10/15/19 23 3:08 PM EDT documented as of this encounter Care Teams Waste Water Treatment Plant Operator Relationship Specialty Start Date End Date Darius Eden MD [address] [place] [phone] PCP - General Internal Medicine 05/21/21 Tip Sims, DevoraD [address] [place] [address] 88882 Pharmacist Internal Medicine 03/20/22 [facility] 03/20/22 [facility] 12/31/23 documented as of this encounter
--- OUTSIDE RECORDS SUMMARY | 2024-12-07 11:38 | XMS_ITS | Clinical Summary ---
Author Organization [facility] Address [address] [place] [address] Care Team Providers Care Corrosion Control Fitter Name Role Phone Lauren Whyte Primary Care Provider U navailable Surgical History Surgery Date Site/Laterality Comments CARPAL TUNNEL RELEASE PROCEDURE: [place] NEUROPLASTY &/TRANSPOS MEDIAN NRV CARPAL TUNNE COLONOSCOPY [...] DX:Anxiety Depression 03/23/2012 DX:Depression Diabetic cataract ([facility] V 24, [facility] V28) 09/07/2014 DX:Diabetic cataract ([facility]) GERD (gastroesophageal reflux disease) 01/12/2012 DX:GERD (gastroesophageal reflux disease) Type II or unspecified type diabetes mellitus with ophthalmic manifestations, uncontrolled(250.52) ([facility] V24, [facility] V28) 06/26/2013 DX:Type II or unspecified t ype diabetes mellitus with ophthalmic manifestations, uncontrolled(250.52) ([facility]) Tinnitus of right ear 12/07/2012 DX:Tinnitu s of right ear PVD (peripheral vascular dis ease) ([facility] V24) 06/22/2014 DX:PVD (peripheral vascular disease) ([facility]) Obstructive sleep apnea 05/27/2013 DX:Obstr uctive sleep apnea; COMMENT: Dr. 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
--- OUTSIDE RECORDS SUMMARY | 2024-12-07 11:38 | XMS_ITS | Encounter Summary ---
Author Organization [employer] Address [address] [place] [address] 7 [place] [address] Care Team Providers Care Monorail Crane Operator Name Role Phone Darius Eden MD Primary Care Provide r Tip Sims PharmD Unavailable [phone] Reason for Visit * Reason Onset Date Comments Referral 12/06/2024 Encounter Details Date Type Department Care Team ([facility] st Contact Info) Description 12/06/2024 Telephone [facility] 230 [place], [place] [phone] Darius Eden MD 230 [place], [place] [phone] Referral Social History Tobacco Use Types Packs/Day Years [...] encounter Miscellaneous Notes * Telephone Encounter - Kelsey Mooney - 12/06/2024 10:16 AM EDT Tc from Leah Pulliam at [facility] requesting a new referral as pt had to move and can not use same referral for VNA services Contact Leah at [phone] documented in this encounter Plan of Treatment Upcoming Encounters Date Type Department Care Team ([facility] st Contact Info) Description 01/19/2025 10:15 AM EST Office Visit [facility] 230 [place] [address] Darius Eden MD 230 [place], [place] [phone] documented as of this encounter Visit Diagnoses Not on filedocumented in this encounter Additional Health Concerns Assessment Noted Time PHQ-9 Depression Total Score: 0 11/19/19 24 10:20 AM EDT documented as of this encounter Care Teams Monorail Crane Operator Relationship Specialty Start Date End Date Darius Eden MD 230 [place] [address] PCP - General Internal Medicine 05/21/21 Tip Sims PharmD 230 [place] [address] Pharmacist Internal Medicine 03/20/22 [facility] 03/20/22 [facility] 12/31/23 documented as of this encounter
--- OUTSIDE RECORDS SUMMARY | 2024-12-07 11:38 | XMS_ITS | Encounter Summary ---
Author Organization [employer] Address [address] [facility] 7 [place] [address] Care Team Providers Care Pocket Marker Name Role Phone Darius Eden MD Primary Care Provide r Tip Sims PharmD Unavailable [phone] Reason for Visit * Reason Onset Date Comments New Med Request 09/21/2023 Encounter Details Date Type Department Care Team ([facility] st Contact Info) Description 09/21/2023 Telephone [facility] 230 [place], [place] [phone] Darius Eden MD 230 [place], [place] [phone] New Med Request Social History Tobacco Use [...] Description 01/19/2025 10:15 AM EST Office Visit [facility] [address] [place] [address] [phone] Darius Eden MD [address] [place] [address] documented as of this encounter Visit Diagnoses Not on filedocumented in this encounter Additional Health Concerns Assessment Noted Time PHQ-9 Depression Total Score: 6 10/15/19 23 3:08 PM EDT documented as of this encounter Care Teams Pocket Marker Relationship Specialty Start Date End Date Darius Eden MD [address] [place] [address] [phone] PCP - General Internal Medicine 05/21/21 Tip Sims, DevoraD [address] [place] [address] [phone] Pharmacist Internal Medicine 03/20/22 [facility] 03/20/22 [facility] 12/31/23 documented as of this encounter
--- OUTSIDE RECORDS SUMMARY | 2024-12-07 11:38 | XMS_ITS | Encounter Summary ---
Author Organization [employer] Address [address] [place] [address] 7 [place] [address] Care Team Providers Care Cafe Associate Name Role Phone Darius Eden MD Primary Care Provide r Tip Sims PharmD Unavailable [phone] Reason for Visit * Reason Onset Date Comments Med Refill 10/26/2023 Encounter Details Date Type Department Care Team ([facility] st Contact Info) Description 10/26/2023 Telephone [facility] 230 [place], [place] [phone] Darius Eden MD 230 [place], [place] [phone] Med Refill Social History Tobacco Use Types [...] 500 MG tablet To be sent to: [facility] - [place], [place] - [address] [facility] documented in this encounter Plan of Treatment Upcoming Encounters Date Type Department Care Team (Late st Contact Info) Description 01/19/2025 10:15 AM EST Office Visit [facility] 230 [place] [address] Darius Eden MD 230 [place] [address] documented as of this encounter Visit Diagnoses Not on filedocumented in this encounter Additional Health Concerns Assessment Noted Time PHQ-9 Depression Total Score: 6 10/15/19 23 3:08 PM EDT documented as of this encounter Care Teams Cafe Associate Relationship Specialty Start Date End Date Darius Eden MD 230 [place] [address] PCP - General Internal Medicine 05/21/21 Tip Sims, DevoraD 230 [place] [address] Pharmacist Internal Medicine 03/20/22 [facility] 03/20/22 [facility] 12/31/23 documented as of this encounter
--- OUTSIDE RECORDS SUMMARY | 2024-12-07 11:38 | XMS_ITS | Encounter Summary ---
Author Organization [employer] Address [address] [facility] 7t [place] [address] Care Team Providers Care Hand Reamer Name Role Phone Daruis Eden MD Primary Care Provide r Tip Sims PharmD Unavailable [phone] Reason for Visit * Reason Comments Med Refill Encounter Details Date Type Department Care Team (Late st Contact Info) Description 12/05/2022 Refill [facility] [address] [place], [place] [phone] Darius Eden MD 230 [place], [place] [phone] Heartburn Social History Tobacco Use Types Packs/Day [...] Description 01/19/2025 10:15 AM EST Office Visit [facility] [address] [place] [phone] Darius Eden MD [address] [place] [phone] documented as of this encounter Visit Diagnoses Diagnosis Heartburn documented in this encounter Additional Health Concerns Assessment Noted Time PHQ-9 Depression Total Score: 6 10/15/19 23 3:08 PM EDT documented as of this encounter Care Teams Hand Reamer Relationship Specialty Start Date End Date Darius Eden MD [address] [place] [phone] PCP - General Internal Medicine 05/21/21 Tip Sims, DevoraD [address] [place] [phone] Pharmacist Internal Medicine 03/20/22 [facility] 03/20/22 [facility] 12/31/23 documented as of this encounter
--- OUTSIDE RECORDS SUMMARY | 2024-12-07 11:38 | XMS_ITS | Encounter Summary ---
Author Organization [employer] Address [address] [place] [address] [place], [place] [address] Care Team Providers Care Benefits Technician Name Role Phone Darius Eden MD Primary Care Provide r Tip Sims PharmD Unavailable [phone] Encounter Details Date Type Department Care Team (Late st Contact Info) Description 03/12/2022 Telephone [facility] [address] [place] [address] Darius Eden MD [address] [place] [phone] Social History Tobacco Use Types Packs/Day Years [...] 10:15 AM EST Office Visit [facility] [address] [place] [address] [phone] Darius Eden MD [address] [place] [phone] documented as of this encounter Visit Diagnoses Not on filedocumented in this encounter Care Teams Benefits Technician Relationship Specialty Start Date End Date Darius Eden MD 230 [place] [address] PCP - General Internal Medicine 05/21/21 Tip Sims, DevoraD 230 [place] [address] Pharmacist Internal Medicine 03/20/22 [facility] 03/20/22 [facility] 12/31/23 documented as of this encounter
--- OUTSIDE RECORDS SUMMARY | 2024-12-07 11:38 | XMS_ITS | Encounter Summary ---
Author Organization [employer] Address [address] [place] [address] 7 [place] [address] Care Team Providers Care Cut Out Stitcher Name Role Phone Darius Eden MD Primary Care Provide r Tip Sims PharmD Unavailable [phone] Reason for Visit * Reason Comments Med Refill Encounter Details Date Type Department Care Team ([facility] st Contact Info) Description 03/09/2023 Refill [facility] 230 [place], [place] [phone] Darius Eden MD 230 [place], [place] [phone] Acute cough Social History Tobacco Use Types [...] Office Visit [facility] [address] [place] [phone] Darius Eden MD [address] [place] [address] documented as of this encounter Visit Diagnoses Diagnosis Acute cough documented in this encounter Additional Health Concerns Assessment Noted Time PHQ-9 Depression Total Score: 6 10/15/19 23 3:08 PM EDT documented as of this encounter Care Teams Cut Out Stitcher Relationship Specialty Start Date End Date Darius Eden MD [address] [place] [address] PCP - General Internal Medicine 05/21/21 Tip Sims, Carlos [address] [place] [phone] Pharmacist Internal Medicine 03/20/22 [facility] 03/20/22 [facility] 12/31/23 documented as of this encounter
== END 2024-12-07 10:11 | disposition home or self-care (01) ==
LOC: HO.HPS 09:44
PROVIDERS: PCP Internal Medicine; Visit Provider Internal Medicine Pulmonary Disease
DX: J45.50 Severe persistent asthma, uncomplicated (principal); G47.33 Obstructive sleep apnea (adult) (pediatric); Z99.89 Dependence on other enabling machines and devices; Z91.09 Other allergy status, other than to drugs and biological substances; K21.9 Gastro-esophageal reflux disease without esophagitis
CPT/HCPCS: 99214; G2211

== ENCOUNTER → 2024-12-07 09:43 | Outpatient (BNVA) | payer MEDICARE, MEDICAID, SELFPAY | PROVIDERS: PCP Internal Medicine; Visit Provider Internal Medicine Pulmonary Disease | DX: J44.89 Other specified chronic obstructive pulmonary disease (principal); J45.50 Severe persistent asthma, uncomplicated; G47.33 Obstructive sleep apnea (adult) (pediatric); Z99.89 Dependence on other enabling machines and devices; K21.9 Gastro-esophageal reflux disease without esophagitis; Z87.891 Personal history of nicotine dependence; Z79.899 Other long term (current) drug therapy | CPT/HCPCS: 99212 ==

== ENCOUNTER 2024-12-13 13:09 | Outpatient (AMB) | payer MEDICARE, MEDICAID, SELFPAY ==
[2024-12-13 13:20] VITALS: BP 100/60; PULSE 67; BMI 31.0
--- NOTE | 2024-12-13 13:20 | A.OFFVIS_ITS ---
Vital Signs 12/13/24 13:20 Height 5 ft 6 in Weight 192 lb 3.889 oz BMI 31.0 BP 100/60 Blood Pressure Location Lt brachial Position Sitting Pulse 67 Pulse Source Monitor Intake Visit Reasons: 1yr f/u Intermediate Card Tender Required: Yes Intermediate Card Tender Language: [employer] Sales Name: nicol/ [id number] Accompanied by: Self / Same As Patient Allergies No Known Allergies (No Known Allergies*) Allergy (Verified 12/07/24 10:01) Medication List - Last Reconciled 12/13/24 by Jose Fuentes MD acetaminophen 1,000 mg (2 x 500 mg) PO Q8H PRN albuterol sulfate 90 mcg/actuation (Ventolin HFA) 2 puffs inhalation Q4-6H PRN amlodipine 10 mg PO QAM aspirin 81 mg PO QAM belladonna alkaloids-opium 16.2-60 mg 1 supp NM BID PRN 30 days cilostazol 100 mg PO BID docusate sodium 100 mg PO BID doxazosin 4 mg See Protocol PO BEDTIME dulaglutide (Trulicity) 4.5 mg subcut FR escitalopram oxalate 10 mg PO DAILY ezetimibe 10 mg PO QAM finasteride 5 mg PO DAILY insulin glargine (Lantus Solostar U-100 Insulin) 88 units subcut DAILY insulin lispro (Humalog KwikPen (U-100) Insulin) 16 units subcut TIDAC irbesartan 150 mg PO DAILY 90 days isosorbide mononitrate ER 60 mg PO QAM levofloxacin 500 mg PO DAILY 7 days magnesium hydroxide (Milk of Magnesia) 30 mL PO DAILY PRN melatonin 3 mg PO BEDTIME PRN metformin 1,000 mg PO DAILY metoprolol tartrate 50 mg PO BID naproxen (EC-Naproxen) 500 mg PO BID PRN 7 days nitroglycerin 0.4 mg sublingual Q5M PRN omeprazole 40 mg PO BID oxycodone 5 mg PO Q6H PRN oxycodone 5 mg PO BID PRN phenazopyridine (Pyridium) 100 mg PO BID PRN polyethylene glycol 3350 (Miralax) 17 grams PO DAILY rosuvastatin 20 mg PO QAM solifenacin 5 mg PO DAILY 90 days sulfamethoxazole-trimethoprim 400-80 mg (Bactrim) 1 tab PO DAILY 90 days trazodone 100 mg PO BEDTIME HPI Comments Details: Len returns for follow-up regarding coronary disease and bypass surgery. He has had chronic noncardiac chest pains but otherwise for the most part he is fine. Since last seen, no new concerns. He has got no symptoms whatsoever. [facility] Medical History Osteoarthritis of knees, bilateral Type 2 diabetes mellitus with unspecified complications Sepsis Hyperthyroidism Multinodular thyroid HLD (hyperlipidemia) HTN (hypertension) Obesity NSTEMI (non-ST elevated myocardial infarction) CAD (coronary artery disease) Diabetes mellitus Myocardial infarct Surgical History History of esophagogastroduodenoscopy (EGD) Hx of colonoscopy Hx of ultrasound guided needle biopsy Hx of CABG (~07/2016) Family History Mother Cardiovascular disease Father Medical history unknown Sister Cancer Brother Cancer Social History Household Members: Family Housing: Apartment Are you a primary vp care management to a significant other at home: No Do you presently have visiting nurse or other home services: No Alcohol intake: former Patient Tobacco Use Status: Former Tobacco user Second Hand Smoke Exposure: No service: No Current occupational status: unemployed Review of Systems Const Denies chills, Denies fatigue, Denies fever(s), Denies frequent falls, Denies weakness, Denies weight gain and Denies weight loss ENT Denies dizziness Card Reports chest pain, Reports chest pain at rest, Reports chest pain with activity, Denies leg edema, Denies lightheadedness, Denies palpitations, Reports dyspnea, Reports dyspnea on exertion and Reports orthopnea Resp Denies cough, Reports dyspnea and Reports dyspnea on exertion GI Denies hematochezia Musc Denies abnormal gait, Denies muscle weakness, Denies numbness, Denies radiating pain into limb and Denies tingling Neuro Denies abnormal gait, Denies dizziness, Denies frequent falls, Denies numbness, Denies tingling and Denies weakness Endo Denies fatigue and Denies palpitations Physical Exam Vital Signs: Last Vital Signs Pulse 67 11/04/25 13:20 BP 100/60 12/13/24 13:20 BMI result Body Mass Index 31.0 Const General: comfortable and no acute distress Orientation/consciousness: patient oriented x3 HEENT Other: Unremarkable Head: Yes normal to inspection Neck Neck: Yes normal visual inspection Chest Chest palpation & inspection: normal inspection of the chest Resp Auscultation: clear to auscultation bilaterally Cardio Palpation: normal PMI Heart sounds: S1 normal heart sound present, S2 normal heart sound present, no gallops, no murmurs and no rubs GI Palpation (GI): Soft to palpation Back/Spine/Pelvis Other: unremarkable Skin General skin exam: no rashes or lesions noted Neuro General: patient oriented x3 Extrem General: Yes normal to inspection Psych Mental Status: mental status grossly normal Office Procedures EKG Details: EKG with underlying sinus rhythm at 67/Min; rightward axis; no ischemic changes; borderline NM prolongation to 204 milliseconds; [place]. [address]-[id number], Complete Assessment & Plan Assessment & Plan (1) Atherosclerotic cardiovascular disease: Code(s): I25.10 - Atherosclerotic heart disease of [place] coronary artery without angina pectoris Category: Medical Plan: Status post CABG in [place] 2016. Clinically, no angina. Continue aspirin, statins, Zetia. Last LDL 44 mg/dL. Triglycerides 83 mg/dL. (2) Essential hypertension: Code(s): I10 - Essential (primary) hypertension Category: Medical Plan: On irbesartan, amlodipine. He will need to get follow-up labs through his own PCP. (3) Type 2 diabetes mellitus with unspecified complications: Code(s): E11.8 - Type 2 diabetes mellitus with unspecified complications Category: Medical Plan: No recent hemoglobin A1c in our system. He is on insulin. (4) Morbid obesity: Code(s): E66.01 - Morbid (severe) obesity due to excess calories Category: Medical Plan: He has lost some weight over the last year or so. Hopefully he can keep it that way. Plan Discussion Notes During the visit, we discussed the patient's cardiovascular health status, noting the absence of new chest pain and the normal EKG results. I advised that we will continue with regular monitoring and that no changes to the current management plan are necessary at this time. Patient was informed and verbally consented to the use of an ambient scribe for clinic note documentation during this visit. Patient Instructions: - Continue regular cardiovascular monitoring. - Report any new symptoms such as chest pain immediately. Coding Level of Care Code Est Pt Level 4 (62142) Complex EM visit Add On G2211 Diagnoses Atherosclerotic cardiovascular disease I25.10 Essential hypertension I10 Type 2 diabetes mellitus with unspecified complications E11.8 Morbid obesity E66.01 CPT Codes EKG - CPT: 43996-[id number], Complete ([id number])
--- OUTSIDE RECORDS SUMMARY | 2024-12-13 16:06 | XMS_ITS | Encounter Summary ---
Author Organization [employer] Address [address] [place] [address] 7 [place] [address] Care Team Providers Care Clinical Cytogeneticist Scientist Name Role Phone Darius Eden MD Primary Care Provide r Tip Sims PharmD Unavailable [phone] Encounter Details Date Type Department Care Team (Late st Contact Info) Description 03/05/2022 Orders Only [facility]S [address] [place] [address] Rosaline Lamb LPN Social History Tobacco Use [...] Description 01/19/2025 10:15 AM EST Office Visit [facility] MEDICINE 230 [place], [place] [phone] Darius Eden MD 230 [place], [place] [phone] documented as of this encounter Visit Diagnoses Not on filedocumented in this encounter Care Teams Clinical Cytogeneticist Scientist Relationship Specialty Start Date End Date Darius Eden MD 230 [place], [place] [phone] PCP - General Internal Medicine 05/21/21 Tip Sims, PharmD [address] [place] [address] [phone] Pharmacist Internal Medicine 03/20/22 [facility] 03/20/22 [facility] 12/31/23 documented as of this encounter
--- OUTSIDE RECORDS SUMMARY | 2024-12-13 16:06 | XMS_ITS | Encounter Summary ---
Author Organization [employer] Address [address] [place] [address] 7 [place] [address] Care Team Providers Care Drill Press Set Up Operator Radial Name Role Phone Darius Eden MD Primary Care Provide r Tip Sims PharmD Unavailable [phone] Encounter Details Date Type Department Care Team (Late st Contact Info) Description 03/05/2022 Orders Only [facility] [address] [place] [address] Brtiney Butron LPN Social History Tobacco Use Types Packs/Day [...] Description 01/19/2025 10:15 AM EST Office Visit [facility] [address] [place] [address] [phone] Darius Eden MD [address] [place] [address] [phone] documented as of this encounter Visit Diagnoses Not on filedocumented in this encounter Care Teams Drill Press Set Up Operator Radial Relationship Specialty Start Date End Date Darius Eden MD [address] [place] [phone] PCP - General Internal Medicine 05/21/21 Tip Sims, PharmD [address] [place] [phone] Pharmacist Internal Medicine 03/20/22 [facility] 03/20/22 [facility] 12/31/23 documented as of this encounter
--- OUTSIDE RECORDS SUMMARY | 2024-12-13 16:06 | XMS_ITS | Encounter Summary ---
Author Organization [employer] Address [address] [place] [address] [place] [address] Care Team Providers Care Continuity Tester Name Role Phone Darius Eden MD Primary Care Provide r Tip Sims PharmD Unavailable [phone] Encounter Details Date Type Department Care Team (Late st Contact Info) Description 03/12/2022 Telephone [facility] MEDICINE [address] [place] [address] Darius Eden MD [address] [place] [address] Social History Tobacco Use Types Packs/Day Years [...] Description 01/19/2025 10:15 AM EST Office Visit [facility] MEDICINE [address] [place] [address] [phone] Darius Eden MD [address] [place] [address] documented as of this encounter Visit Diagnoses Not on filedocumented in this encounter Care Teams Continuity Tester Relationship Specialty Start Date End Date Darius Eden MD [address] [place] [address] PCP - General Internal Medicine 05/21/21 Tip Sims, DevoraD [address] [place] [address] Pharmacist Internal Medicine 03/20/22 [facility] 03/20/22 [facility] 12/31/23 documented as of this encounter
--- OUTSIDE RECORDS SUMMARY | 2024-12-13 16:07 | XMS_ITS | Encounter Summary ---
Author Organization [employer] Address [address] [place] [address] 7 [place] [address] Care Team Providers Care Field Operations Technician Name Role Phone Darius Eden MD Primary Care Provide r Tip Sims PharmD Unavailable [phone] Reason for Visit * Reason Onset Date Comments Referral 12/06/2024 Encounter Details Date Type Department Care Team ([facility] st Contact Info) Description 12/06/2024 Telephone [facility] MEDICINE [address] [place], [place] [phone] Darius Eden MD 230 [place], [place] [phone] Referral Social History Tobacco Use Types Packs/Day [...] encounter Miscellaneous Notes * Telephone Encounter - Tana Taylor RN - 12/12/2024 1:19 PM EST Return call placed to Leah and a VM was left to call back the office regarding VNA referral * Telephone Encounter - Marta Enriquez RN - 12/08/2024 10:13 AM EDT Telephone call to Leah at [phone], no answer, no name or identifying info in voicemail, advised her to call back [facility] as needed. * Telephone Encounter - Kelsey Mooney - 12/08/2024 9:17 AM EDT Tc from Leah requesting a call back Contact at [phone] * Telephone Encounter - Marta Enriquez RN - 12/07/2024 2:04 PM EDT Returned call to Nandini, Leah Shasha not available, left voicemail for her to call back [facility] in regards to referral. * Telephone Encounter - Kelsey Mooney - 12/06/2024 10:16 AM EDT Tc from Leah Pulliam at [facility] requesting a new referral as pt had to move and can not use same referral for VNA services Contact Leah at [phone] documented in this encounter Plan of Treatment Upcoming Encounters Date Type Department Care Team (Late st Contact Info) Description 01/19/2025 10:15 AM EST Office Visit [facility] MEDICINE [address] [place] [address] Darius Eden MD [address] [place] [address] documented as of this encounter Visit Diagnoses Not on filedocumented in this encounter Additional Health Concerns Assessment Noted Time PHQ-9 Depression Total Score: 0 11/19/19 10:20 AM EDT documented as of this encounter Care Teams Field Operations Technician Relationship Specialty Start Date End Date Darius Eden MD [address] [place] [address] PCP - General Internal Medicine 05/21/21 Tip Sims PharmD [address] [place] [address] Pharmacist Internal Medicine 03/20/22 [facility] 03/20/22 [facility] 12/31/23 documented as of this encounter
--- OUTSIDE RECORDS SUMMARY | 2024-12-13 16:07 | XMS_ITS | Clinical Summary ---
Author Organization [employer] Address [address] [place] [address] 7 [place] [address] Care Team Providers Care Telecommunications Equipment Installer Name Role Phone Darius Eden MD Primary Care Provide r Tip Sims PharmD Unavailable [phone] Allergies No known active allergies Medications Breo [...] specified complication, unspecified whether correction insulin use (HCC) Take 1 tablet by mouth Once per day. 30 tablet 11 Active insulin pen needle (Easy Touch Pen Cope) 31G X 8 mm misc USE DIRECTED FOUR TIMES DAILY 100 each Active Acetaminophen Extra Strength 500 MG tabletIndicati ons:Acute pain of right knee TAKE 2 TABLETS BY MOUTH EVERY 8 HOURS NEEDED FOR PAIN 60 tablet Active insulin glargine (Basaglar KwikPen) 100 UNIT/ML pen Inject 80 Units under the skin at bedtime. 3 mL 12 2025 Active Blood Glucose Monitoring Suppl (CuPcAkE & other things you bake Verio Flex System) w/Device kitIndications :Type 2 diabetes mellitus without complication, unspecified whether correction insulin use TEST BLOOD SUGAR EVERY DAY 1 kit Active Lancets (AdmittedlyTouch Delica Plus [id number]) miscIndication s:Type 2 diabetes mellitus without complication, unspecified whether correction insulin use TEST BLOOD SUGAR THREE TIMES DAILY 100 each 1 Active glucose blood (AdmittedlyTouch Verio) test stripIndicatio ns:Type 2 diabetes mellitus without complication, unspecified whether correction insulin use TEST BLOOD SUGAR THREE TIMES [...] specified complication, unspecified whether correction insulin use (HCC) INJECT ONE PEN (= 4.5MG) SUBCUTANEOUSLY ONCE A WEEK DIRECTED 2 mL 3 025 Active Trulicity 4.5 MG/0.5ML solution auto-injectorI ndications:Typ e 2 diabetes mellitus with other specified complication, unspecified whether correction insulin use (HCC) INJECT ONE PEN (= [...] 1.59 Colonoscopy 06/25/[address] oDmínguez recommended repeat 1-3 years given polyp burden [...] 11:24 AM EST): [place] the [place] [facility] Machine [facility] [place] [facility] [place] last [place] 01/13/2024 Assessment & Plan (02/24/2023 9:24 AM EST): [place] the [place] [facility] Machine Operator [place] [facility] [place] last [...] 02/09/2019 Essential hypertension 07/28/2011 Overview (06/23/2022): Joined [facility] 10/2021. Frequently misses appointments. Followed by cardiology. Hx of CABG/ ASVCD. Was switched to [facility] pharmacy with medboxes with improved adherence Current [...] Patient here for a HDF [place] [facility] [place] [...] and Ezetimide 10 mg ( Prescribed by Wax Machine Operator ) last seen 09/24/2021 . LFTS 05/22/2021 [...] Type Department Care Team Description 12/06/2024 Telephone [facility] MEDICINE [address] [place] [address] Darius Eden MD Referral 11/23/2024 Refill [facility] [address] [place] [address] aDrius Eden MD Type 2 diabetes mellitus with other specified complication, unspecified whether correction insulin use (HCC) 10/24/2024 Telephone [facility] MEDICINE [address] [place] [address] Darius Eden MD January10/22/2024 Refill [facility] [address] [place] [address] Salima Concepcion MD Depressive disorder 10/11/2024 10:00 AM EDT Office Visit [facility] MEDICINE [address] [place] [address] Darius Eden MD Type 2 diabetes mellitus with diabetic peripheral angiopathy without gangrene, with long-term current use of insulin (CMS/HCC) (Primary Dx); Essential hypertension; Moderate persistent asthma without complication; Pure hypercholesterolemia; Acute pain of right knee; Benign prostatic hyperplasia with lower urinary tract symptoms, symptom details unspecified; Obstructive sleep apnea syndrome; Preventative health care 10/11/2024 Travel 10/08/2024 Refill [facility] [address] [place] [address] Darius Eden MD from Last 3 Months [...] Description 01/19/2025 10:15 AM EST Office Visit [facility] [address] [facility] [place] [address] Darius Eden MD [address] [facility] [place] [address] Health Maintenance Due Date Last Done Comments [...] gangrene, with long-term current use of insulin ([facility]) POCT GLYCOSYLATED HEMOGLOBIN (HGB A1C) Routine 10/11/2024 10:19 AM EDT Type 2 diabetes mellitus with diabetic peripheral angiopathy without gangrene, with long-term current use of insulin ([facility]) ALBUMIN, RANDOM URINE W/CREATININE Routine 06/06/2024 9:49 AM EDT Type 2 diabetes mellitus with hyperglycemia, with long-term current use of insulin ([facility]) LIPID PANEL, STANDARD Routine 06/06/2024 9:49 AM [...] Media Lot # [id number] Lot# Expiration Date 076, Blood Capillary blood specimen / Unknown 10/11/2024 [...] 9:49 AM EDT) Creatinine, Urine 387.16 mg/dL [facility] Microalbumin Urine 61.0 mg/L [facility] Microalbum Creatinine Ratio Ur 15.7 <30 ug/mg cr [facility] Comment:Albumin/Creatinine R atio Reference Ranges: Normal: < 30 ug/mg creatinine Microalbuminuria: 30 - 300 ug/mg creatinineClinical Albuminuria: > 300 ug/mg creatinine Urine (Urine, Random) 06/06/2024 9:49 AM EDT 06/06/2024 11:03 AM EDT Avery Ceballos [facility] URINE ORDERABLES Cassidy l Result [facility] [address] [place] [phone] * Lipid Panel, Standard (06/06/2024 9:49 AM EDT) Triglycerides 83 <150 mg/dL [facility] Comment:Desirable Triglyceri de: less than 150 mg/dLBorderline High Triglyceride 150-199 mg/dLHigh Triglyceride: 200-499 mg/dLVery High Triglyceride: greater than or equal to 5OO mg/dL Cholesterol 101 <200 mg/dL [facility] Comment:Desirable Cholestero l: less than 200 mg/dLBorderline High Cholesterol: 200-239 mg/dLHigh Cholesterol: greater than 239 mg/dL LDL Cholesterol Calculated 44 <100 mg/dL [facility] Comment:Desirable LDL: less than 100 mg/dLNear Optimal/Above Optimal LDL: 110- 129 mg/dLBorderline High LDL: 130-159 mg/dLHigh LDL: 160-189 mg/dLVery High LDL: greater than or equal to 190 mg/dL HDL Cholesterol 41 >40 mg/dL [facility] Comment:Desirable HDL: great er than 40 mg/dL Note: This HDL assay may give artificially low results in patients with liver disease. Blood Venous blood specimen / Unknown 06/06/2024 9:49 AM EDT 06/06/2024 10:57 AM EDT Darius Christian MD LAB BLOOD ORDERABLES Final Result [facility] [address] [place] [phone] * Colonoscopy (06/25/2023) Colonoscopy Normal Normal [...] a test for HCV RNA (test code 70331) is suggested. For additional information please refer to http://education.[employer]/faq/ZMV73b7 (This link is being provided for informational/ educational purposes only.) 05/22/2021 8:46 AM EDT us Darius Christian MD HISTORICAL/NON ORDERA BLE LABS Final Result [facility] [address] from Last 3 Months or Most Recently Relevant to Health Maintenance Insurance MEDICARE [facility] STANDARD Care Teams Telecommunications Equipment Installer Relationship Specialty Start Date End Date Darius Eden MD [address] [place] [address] PCP - General Internal Medicine 05/21/21 Tip Sims, PharmD [address] [place] [address] Pharmacist Internal Medicine 03/20/22 [facility] 03/20/22 [facility] 12/31/23
--- OUTSIDE RECORDS SUMMARY | 2024-12-13 16:07 | XMS_ITS | Encounter Summary ---
Author Organization [employer] Address [address] [facility] 7 [place] [address] Care Team Providers Care Load Dispatcher Name Role Phone Darius Eden MD Primary Care Provide r Tip Sims PharmD Unavailable [phone] Reason for Visit * Reason Comments Med Refill Encounter Details Date Type Department Care Team ([facility] st Contact Info) Description 01/19/2023 Refill [facility] MEDICINE 230 [place], [place] [phone] Darius Eden MD 230 [place], [place] [phone] Mild depression Social History Tobacco Use Types [...] 01/19/2025 10:15 AM EST Office Visit [facility] MEDICINE [address] [place] [address] Darius Eden MD [address] [place] [address] documented as of this encounter Visit Diagnoses Diagnosis Mild depression Depressive disorder, not elsewhere classified documented in this encounter Additional Health Concerns Assessment Noted Time PHQ-9 Depression Total Score: 6 10/15/19 23 3:08 PM EDT documented as of this encounter Care Teams Load Dispatcher Relationship Specialty Start Date End Date Darius Eden MD [address] [place] [address] PCP - General Internal Medicine 05/21/21 Tip Sims, Carlos [address] [place] [address] Pharmacist Internal Medicine 03/20/22 [facility] 03/20/22 [facility] 12/31/23 documented as of this encounter
--- OUTSIDE RECORDS SUMMARY | 2024-12-13 16:07 | XMS_ITS | Patient Health Record ---
Author Organization [facility] Address [address] [place] [address] Care Team Providers Care Rubber Stamps And Dies Supervisor Name Role Phone Ren Garcia Unavailable [phone] Reason For Referral No Information Plan Of Treatment No Information
--- OUTSIDE RECORDS SUMMARY | 2024-12-13 16:07 | XMS_ITS | Encounter Summary ---
Author Organization [employer] Address [address] [facility] 7 [place] [address] Care Team Providers Care Driveway Sealer Name Role Phone Darius Eden MD Primary Care Provide r Tip Sims PharmD Unavailable [phone] Reason for Visit * Reason Onset Date Comments New Med Request 09/21/2023 Encounter Details Date Type Department Care Team ([facility] st Contact Info) Description 09/21/2023 Telephone [facility] MEDICINE 230 [place], [place] [phone] Darius Eden MD 230 [place], [place] [phone] New Med Request Social History Tobacco Use [...] Description 01/19/2025 10:15 AM EST Office Visit [facility] MEDICINE [address] [place] [address] [phone] Darius Eden MD [address] [place] [address] documented as of this encounter Visit Diagnoses Not on filedocumented in this encounter Additional Health Concerns Assessment Noted Time PHQ-9 Depression Total Score: 6 10/15/19 23 3:08 PM EDT documented as of this encounter Care Teams Driveway Sealer Relationship Specialty Start Date End Date Darius Eden MD [address] [place] [address] [phone] PCP - General Internal Medicine 05/21/21 Tip Sims, DevoraD [address] [place] [address] [phone] Pharmacist Internal Medicine 03/20/22 [facility] 03/20/22 [facility] 12/31/23 documented as of this encounter
--- OUTSIDE RECORDS SUMMARY | 2024-12-13 16:07 | XMS_ITS | Encounter Summary ---
Author Organization [employer] Address [address] [facility] 7 [place] [address] Care Team Providers Care Dobby Looms Pegger Name Role Phone Darius Eden MD Primary Care Provide r Tip Sims PharmD Unavailable [phone] Reason for Visit * Reason Comments Med Change Request Encounter Details Date Type Department Care Team ([facility] Contact Info) Description 11/20/2023 Refill [facility] MED[facility]INE [address] [place], [place] [phone] Darius Eden MD 230 [place], [place] [phone] Primary insomnia Social History Tobacco Use Types [...] Description 01/19/2025 10:15 AM EST Office Visit [facility] MEDICINE [address] [place] [address] Darius Eden MD [address] [place] [address] documented as of this encounter Visit Diagnoses Diagnosis Primary insomnia Persistent disorder of initiating or maintaining sleep documented in this encounter Additional Health Concerns Assessment Noted Time PHQ-9 Depression Total Score: 0 11/19/19 24 10:20 AM EDT documented as of this encounter Care Teams Dobby Looms Pegger Relationship Specialty Start Date End Date Darius Eden MD [address] [place] [address] PCP - General Internal Medicine 05/21/21 Tip Sims, Carlos [address] [place] [address] Pharmacist Internal Medicine 03/20/22 [facility] 03/20/22 [facility] 12/31/23 documented as of this encounter
--- OUTSIDE RECORDS SUMMARY | 2024-12-13 16:07 | XMS_ITS | Encounter Summary ---
Author Organization [employer] Address [address] [facility] 7 [place] [address] Care Team Providers Care Chicken Hanger Name Role Phone Darius Eden MD Primary Care Provide r Tip Sims PharmD Unavailable [phone] Reason for Visit * Reason Onset Date Comments Call Back Request 01/07/2023 Encounter Details Date Type Department Care Team ([facility] Contact Info) Description 01/07/[address] [facility] MEDICINE [address] [place], [place] [phone] Darius Eden MD 230 [place], [place] [phone] Call Back Request Social History Tobacco Use [...] Description 01/19/2025 10:15 AM EST Office [address] [facility] MEDICINE [address] [place] [address] Darius Eden MD [address] [place] [address] documented as of this encounter Visit Diagnoses Not on filedocumented in this encounter Additional Health Concerns Assessment Noted Time PHQ-9 Depression Total Score: 6 10/15/19 23 3:08 PM EDT documented as of this encounter Care Teams Chicken Hanger Relationship Specialty Start Date End Date Darius Eden MD [address] [place] [address] PCP - General Internal Medicine 05/21/21 Tip Sims, DevoraD [address] [place] [address] Pharmacist Internal Medicine 03/20/22 [facility] 03/20/22 [facility] 12/31/23 documented as of this encounter
--- OUTSIDE RECORDS SUMMARY | 2024-12-13 16:07 | XMS_ITS | Clinical Summary ---
Author Organization [facility] Address [address] [place] [address] Care Team Providers Care Process Control Operator Name Role Phone Lauren Whyte Primary Care Provider U navailable Surgical History Surgery Date Site/Laterality Comments CARPAL TUNNEL RELEASE PROCEDURE: [place] NEUROPLASTY &/TRANSPOS MEDIAN NRV CARPAL TUNNE COLONOSCOPY [...] DX:Depression Diabetic cataract ([facility] V 24, [facility] V28) 09/07/2014 DX:Diabetic cataract ([facility]) GERD (gastroesophageal reflux disease) 01/12/2012 DX:GERD (gastroesophageal reflux disease) Type II or unspecified type diabetes mellitus with ophthalmic manifestations, uncontrolled(250.52) ([facility] V24, [facility] V28) 06/26/2013 DX:Type II or unspecified t ype diabetes mellitus with ophthalmic manifestations, uncontrolled(250.52) ([facility]) Tinnitus of right ear 12/07/2012 DX:Tinnitu s of right ear PVD (peripheral vascular dis ease) ([facility] V24) 06/22/2014 DX:PVD (peripheral vascular disease) ([facility]) Obstructive sleep apnea 05/27/2013 DX:Obstr uctive sleep apnea; COMMENT: Dr. Thornton, neurologist at [facility] Split night study 02/06/13: AHI 102.4, O2 [...] Elbows, knees Asthma 03/08/2012 DX:Asthma Atherosclerosis of [place] co ronary artery of [place] heart with angina pectoris (CMS/HCC V24) 06/12/2015 DX:Atherosclerosis of [place] coronary artery of [place] heart with angina pectoris (HCC) Balanitis 05/25/2012 [...] age to complete this topic Care Teams Process Control Operator Relationship Specialty Start Date End Date Lauren Whyte PA PCP - General Internal Medicine 01/24/21
--- OUTSIDE RECORDS SUMMARY | 2024-12-13 16:07 | XMS_ITS | Encounter Summary ---
Author Organization [employer] Address [address] [facility] 7t [place] [address] Care Team Providers Care Heating Plant Superintendent Name Role Phone Darius Eden MD Primary Care Provide r Tip Sims PharmD Unavailable [phone] Reason for Visit * Reason Comments Med Refill Encounter Details Date Type Department Care Team (Late st Contact Info) Description 02/16/2024 Refill [facility]EDS [address] [place], [place] [phone] Darius Eden MD [address] [place], [place] [phone] Primary insomnia Social History Tobacco Use Types [...] 01/19/2025 10:15 AM EST Office Visit [facility] MEDICINE [address] [place] [address] Darius Eden MD [address] [place] [address] documented as of this encounter Visit Diagnoses Diagnosis Primary insomnia Persistent disorder of initiating or maintaining sleep documented in this encounter Additional Health Concerns Assessment Noted Time PHQ-9 Depression Total Score: 0 11/19/19 24 10:20 AM EDT documented as of this encounter Care Teams Heating Plant Superintendent Relationship Specialty Start Date End Date Darius Eden MD [address] [place] [address] PCP - General Internal Medicine 05/21/21 Tip Sims, DevoraD [address] [place] [address] Pharmacist Internal Medicine 03/20/22 [facility] 03/20/22 [facility] 12/31/23 documented as of this encounter
--- OUTSIDE RECORDS SUMMARY | 2024-12-13 16:07 | XMS_ITS | Encounter Summary ---
Author Organization [employer] Address [address] [facility] 7t [place] [address] Care Team Providers Care Paramedical Aide Name Role Phone Darius Eden MD Primary Care Provide r Tip Sims PharmD Unavailable [phone] Reason for Visit * Reason Comments Med Refill Encounter Details Date Type Department Care Team (Late st Contact Info) Description 02/11/2024 Refill [facility] [address] [place], [place] [phone] Darius Eden MD 230 [place], [place] [phone] Depressive disorder; Primary insomnia Social History Tobacco [...] Description 01/19/2025 10:15 AM EST Office Visit [facility] MEDICINE [address] [place] [address] Darius Eden MD [address] [place] [address] documented as of this encounter Visit Diagnoses Diagnosis Depressive disorder Depressive disorder, not elsewhere classified Primary insomnia Persistent disorder of initiating or maintaining sleep documented in this encounter Additional Health Concerns Assessment Noted Time PHQ-9 Depression Total Score: 0 11/19/19 24 10:20 AM EDT documented as of this encounter Care Teams Paramedical Aide Relationship Specialty Start Date End Date Darius Eden MD [address] [place] [address] PCP - General Internal Medicine 05/21/21 Tip Sims PharmD [address] [place] [address] Pharmacist Internal Medicine 03/20/22 [facility] 03/20/22 [facility] 12/31/23 documented as of this encounter
--- OUTSIDE RECORDS SUMMARY | 2024-12-13 16:07 | XMS_ITS | Encounter Summary ---
Author Organization [employer] Address 75 [facility] 7 [place] [address] Care Team Providers Care Watch Electrician Name Role Phone Darius Eden MD Primary Care Provide r Tip Sims PharmD Unavailable [phone] Reason for Visit * Reason Comments Med Refill Encounter Details Date Type Department Care Team ([facility] st Contact Info) Description 03/09/2023 Refill [facility] [address] [place], [place] [phone] Darius Eden MD 230 [place], [place] [phone] Acute cough Social History Tobacco Use Types [...] Description 01/19/2025 10:15 AM EST Office Visit [facility] [address] [place] [address] Darius Eden MD [address] [place] [address] documented as of this encounter Visit Diagnoses Diagnosis Acute cough documented in this encounter Additional Health Concerns Assessment Noted Time PHQ-9 Depression Total Score: 6 10/15/19 23 3:08 PM EDT documented as of this encounter Care Teams Watch Electrician Relationship Specialty Start Date End Date Darius Eden MD [address] [place] [phone] PCP - General Internal Medicine 05/21/21 Tip Sims, Carlos [address] [place] [address] 10177 Pharmacist Internal Medicine 03/20/22 [facility] 03/20/22 [facility] 12/31/23 documented as of this encounter
--- OUTSIDE RECORDS SUMMARY | 2024-12-13 16:07 | XMS_ITS | Encounter Summary ---
Author Organization [employer] Address 75 [facility] 7 [place] [address] Care Team Providers Care Chief Procurement Officer Name Role Phone Darius Eden MD Primary Care Provide r Tip Sims PharmD Unavailable [phone] Encounter Details Date Type Department Care Team ([facility] st Contact Info) Description 07/18/2024 Telephone [facility] 230 [place], [place] [phone] Darius Eden MD 230 [place], [place] [phone] Social History Tobacco Use Types Packs/Day Years [...] Description 01/19/2025 10:15 AM EST Office Visit [facility] [address] [place] [address] Darius Eden MD [address] [place] [address] documented as of this encounter Visit Diagnoses Not on filedocumented in this encounter Additional Health Concerns Assessment Noted Time PHQ-9 Depression Total Score: 0 11/19/19 10:20 AM EDT documented as of this encounter Care Teams Chief Procurement Officer Relationship Specialty Start Date End Date Darius Eden MD [address] [place] [address] PCP - General Internal Medicine 05/21/21 Tip Sims, Carlos [address] [place] [address] 20638 Pharmacist Internal Medicine 03/20/22 [facility] 03/20/22 [facility] 12/31/23 documented as of this encounter
--- OUTSIDE RECORDS SUMMARY | 2024-12-13 16:07 | XMS_ITS | Encounter Summary ---
Author Organization [employer] Address 75 [facility] 7t [place] [address] Care Team Providers Care Slasher Runner Name Role Phone Darius Eden MD Primary Care Provide r Tip Sims PharmD Unavailable [phone] Reason for Visit * Reason Comments Med Refill Encounter Details Date Type Department Care Team (Late st Contact Info) Description 12/05/2022 Refill [facility] [address] [place], [place] [phone] Darius Eden MD 230 [place], [place] [phone] Heartburn Social History Tobacco Use Types Packs/Day [...] Description 01/19/2025 10:15 AM EST Office Visit [facility] [address] [place] [address] Darius Eden MD [address] [place] [address] documented as of this encounter Visit Diagnoses Diagnosis Heartburn documented in this encounter Additional Health Concerns Assessment Noted Time PHQ-9 Depression Total Score: 6 10/15/19 23 3:08 PM EDT documented as of this encounter Care Teams Slasher Runner Relationship Specialty Start Date End Date Darius Eden MD [address] [place] [phone] PCP - General Internal Medicine 05/21/21 Tip Sims, DevoraD [address] [place] [address] 6[address]69 Pharmacist Internal Medicine 03/20/22 [facility] 03/20/22 [facility] 12/31/23 documented as of this encounter
--- OUTSIDE RECORDS SUMMARY | 2024-12-13 16:07 | XMS_ITS | Encounter Summary ---
Author Organization [employer] Address [address] [place] [address] 7 [place] [address] Care Team Providers Care Status Controller Name Role Phone Darius Eden MD Primary Care Provide r Tip Sims PharmD Unavailable [phone] Reason for Visit * Reason Onset Date Comments Med Refill 10/26/2023 Encounter Details Date Type Department Care Team ([facility] st Contact Info) Description 10/26/2023 Telephone [facility] 230 [place], [place] [phone] Darius Eden MD 230 [place], [place] [phone] Med Refill Social History Tobacco Use Types [...] 500 MG tablet To be sent to: [facility] - [place], [place] - 230 [facility] documented in this encounter Plan of Treatment Upcoming Encounters Date Type Department Care Team (Late st Contact Info) Description 01/19/2025 10:15 AM EST Office Visit [facility] [address] [place] [address] Darisu Eden MD [address] [place] [address] documented as of this encounter Visit Diagnoses Not on filedocumented in this encounter Additional Health Concerns Assessment Noted Time PHQ-9 Depression Total Score: 6 10/15/19 23 3:08 PM EDT documented as of this encounter Care Teams Status Controller Relationship Specialty Start Date End Date Darius Eden MD [address] [place] [address] PCP - General Internal Medicine 05/21/21 Tip Sims, DevoraD [address] [place] [address] Pharmacist Internal Medicine 03/20/22 [facility] 03/20/22 [facility] [place] [facility] 12/31/23 documented as of this encounter
== END 2024-12-13 13:40 | disposition home or self-care (01) ==
PROVIDERS: PCP Internal Medicine; Visit Provider Internal Medicine
DX: I25.10 Atherosclerotic heart disease of native coronary artery without angina pectoris (principal); I10 Essential (primary) hypertension; E11.8 Type 2 diabetes mellitus with unspecified complications; E66.01 Morbid (severe) obesity due to excess calories
CPT/HCPCS: 93010; 99214; G2211

== ENCOUNTER → 2024-12-13 13:09 | Outpatient (BNVA) | payer MEDICARE, MEDICAID, SELFPAY | PROVIDERS: PCP Internal Medicine; Visit Provider Internal Medicine | DX: I25.10 Atherosclerotic heart disease of native coronary artery without angina pectoris (principal); I10 Essential (primary) hypertension; E11.8 Type 2 diabetes mellitus with unspecified complications; E66.01 Morbid (severe) obesity due to excess calories | CPT/HCPCS: 93005; 99212 ==

== ENCOUNTER 2025-01-04 08:52 | Outpatient (AMB) | payer MEDICARE, MEDICAID, SELFPAY ==
--- NOTE | 2025-01-04 09:17 | MHC.OFFVIS ---
Intake Visit Reasons: 6M UA/PVR(set) Intake Note: Reason for Visit: UA/PVR Follow up Urology Meds: Solifenacin, Bactrim, Finasteride, Doxazosin Blood Thinners: Aspirin Labs: Last PSA: 3.03 (06/06/2024) A1C: 6.2 (06/06/2024) Imaging: None Last PVR: None PVR: 0ml Symptoms: Patient reports Burning sensation when urinates, and he reports he gets up twice during the night Health Aid Required: Yes Health Aid Language: Upper Sorbian Accompanied by: Self / Same As Patient Allergies No Known Allergies (No Known Allergies*) Allergy (Verified 01/04/25 09:19) HPI Comments Details: Len is a pleasant Upper Sorbian-speaking male. He is a patient of Dr. Ball. He is seen for the following urologic conditions - prostatitis - lower urinary tract symptoms Upper Sorbian translation provided by qualified territory sales manager medical Completed daily low-dose Bactrim plus solifenacin for overactive bladder UA normal [facility] follow-up 12/02 [facility] Continued on finasteride Continue solifenacin Six-month follow-up Lower urinary tract symptoms [facility] laser 12/02 with cover suprapubic tube Postprocedure course had urinary urgency with accidents Continued on finasteride Had persistent UTI in setting of diabetes PSA 06/03 3.0 Overactive bladder Prostatitis Significantly enlarged prostate Persistent pain and discomfort Has been on finasteride and doxazosin since hospital On Levaquin for E coli positive UTI Required prostatic unroofing in hospital 10/02 [facility] Medical History Osteoarthritis of knees, bilateral Type 2 diabetes mellitus with unspecified complications Sepsis Hyperthyroidism Multinodular thyroid HLD (hyperlipidemia) HTN (hypertension) Obesity NSTEMI (non-ST elevated myocardial infarction) CAD (coronary artery disease) Diabetes mellitus Myocardial infarct Surgical History History of esophagogastroduodenoscopy (EGD) Hx of colonoscopy Hx of ultrasound guided needle biopsy Hx of CABG (~07/2016) Family History Mother Cardiovascular disease Father Medical history unknown Sister Cancer Brother Cancer Social History Household Members: Family Housing: Apartment Are you a primary rn intensive care unit to a significant other at home: No Do you presently have visiting nurse or other home services: No Alcohol intake: former Patient Tobacco Use Status: Former Tobacco user Second Hand Smoke Exposure: No service: No Current occupational status: unemployed Review of Systems Const Denies chills and Denies fever(s) Card Reports no additional complaints and Denies syncope Resp Denies cough GI Denies abdominal pain and Denies heartburn Reports as per HPI and Denies change in libido Neuro Denies syncope Psych Denies change in libido Endo Denies change in libido Physical Exam Const General: cooperative, healthy appearing, comfortable and no acute distress Orientation/consciousness: patient oriented x3 HEENT Face and sinus: Yes normal facial exam Mouth: moist mucous membranes Neck Neck: Yes normal visual inspection, Yes full ROM and Yes trachea midline Chest Chest palpation & inspection: normal inspection of the chest Resp Effort & Inspection: normal respiratory effort, able to speak in complete sentences and no respiratory distress GI Inspection: Yes normal to inspection Back/Spine/Pelvis Cervical Spine: normal cervical lordosis Thoracic/Lumbar Spine: thoracic and lumbar spine normal to inspection Skin General skin exam: no rashes or lesions noted Neuro General: patient oriented x3, gait normal, tone normal and moves all extremities Extrem General: Yes normal to inspection and Yes capillary refill normal Office Procedures Post Void Residual Post Residual Void Post Void Residual (PVR): 0 [id number]-[id number] Void Residual by ultrasound Results AMB Urinalysis, Automated UA Leukoctes 0 Erika/uL Last Edit by FRIEDA Mahmood on 01/04/25 09:27 UA Nitrite Negative Last Edit by FRIEDA Mahmood on 01/04/25 09:27 UA Urobilinogen 0.2 mg/dL Last Edit by FRIEAD Mahmood on 01/04/25 09:27 UA Protein 15 mg/dL Last Edit by FRIEDA Mahmood on 01/04/25 09:27 UA pH 6.0 Last Edit by FRIEDA Mahmood on 01/04/25 09:27 UA Blood 0 Jimbo/uL Last Edit by FRIEDA Mahmood on 01/04/25 09:27 UA Specific [place] 1.020 Last Edit by Rosaline Estrada RMA on 01/04/25 09:27 UA Ketone Negative Last Edit by EPI MahmoodA on 01/04/25 09:27 UA Bilirubin 1 mg/dL Last Edit by Rosaline Estrada, RMA on 01/04/25 09:27 UA Glucose 0 mg/dL Last Edit by EPI MahmoodA on 01/04/25 09:27 Results Reviewed Results Reviewed: Laboratory Last Values Urine pH (Auto) 6.0 01/04/25 09:19 Specific [place] (Auto) 1.020 01/04/25 09:19 Urine Protein (Auto) 15 mg/dL 01/04/25 09:19 Glucose (UA)(Auto) 0 mg/dL 01/04/25 09:19 Urine Ketones (Auto) Negative 01/04/25 09:19 Urine Blood (Auto) 0 Jimbo/uL 01/04/25 09:19 Urine Nitrite (Auto) Negative 01/04/25 09:19 Urine Bilirubin (Auto) 1 mg/dL 01/04/25 09:19 Urine Urobilinogen (Auto) 0.2 mg/dL 01/04/25 09:19 Leukocyte Esterase (Auto) 0 Erika/uL 01/04/25 09:19 Assessment & Plan Assessment & Plan (1) Bladder instability: Code(s): N32.89 - Other specified disorders of bladder Category: Medical Plan Six-month follow-up Orders: Orders AMB Urinalysis Automated Today Z13.9 - Encounter for screening, unspecified AMB Post Void Residual by ultrasound Today N40.1 - Benign prostatic hyperplasia with lower urinary tract symptoms, R33.9 - Retention of urine, unspecified Medications: Changed From finasteride 5 mg PO DAILY 60 tabs 0RF To finasteride 5 mg PO DAILY 90 tabs 1RF 90 days Discontinued doxazosin Discontinued Reason: Patient Completed Course 4 mg See Protocol PO BEDTIME 60 tabs 0RF Patient Instructions: This note is constructed using voice recognition software. While every effort has been made to ensure accuracy senior director of global commercial technology solutions errors may have been included. Imaging studies, laboratory and physical exam results were discussed and reviewed in detail. No major barriers to patient understanding were identified. An opportunity to ask questions regarding the treatment plan was provided. All questions were answered. The patient expressed understanding and agreement with the above treatment plan. The patient is aware they should contact our office by phone for worsening of their current condition or the appearance of new urologic symptoms. Compliance is encouraged with any medications and followup testing that is ordered. It is a privilege to participate in the urologic care of your patient. If you have any questions or concerns regarding treatment for the above conditions, or other urologic issues, please do not hesitate to contact me. The office telephone contact is [phone]. Sincerely, Dr Cristobal Carney MD, [facility] - Urology Compassionate Specialist Care for the Genitourinary System Coding Level of Care Code Est Pt Level 3 (69997) Complex visit Add On G2211 Diagnoses Bladder instability N32.89 CPT Codes Post Residual Void - PVR CPT Code: 06165-[id number] Void Residual by ultrasound ([id number])
--- OUTSIDE RECORDS SUMMARY | 2025-01-04 09:22 | XMS_ITS | Encounter Summary ---
Author Organization [employer] Address [address] [place] [address] 7 [place] [address] Care Team Providers Care Mine Engineer Name Role Phone Darius Eden MD Primary Care Provide r Tip Sims PharmD Unavailable [phone] Encounter Details Date Type Department Care Team (Late st Contact Info) Description 03/05/2022 Orders Only [facility] [address] [place] [address] Britney Burton LPN Social History Tobacco Use [...] Description 01/19/2025 10:15 AM EST Office Visit [facility] [address] [place] [address] [phone] Darius Eden MD [address] [place] [address] [phone] documented as of this encounter Visit Diagnoses Not on filedocumented in this encounter Care Teams Mine Engineer Relationship Specialty Start Date End Date Darius Eden MD [address] [place] [address]79 PCP - General Internal Medicine 05/21/21 Tip Sims, PharmD [address] [place] [address] 62452 Pharmacist Internal Medicine 03/20/22 [facility] 03/20/22 [facility] 12/31/23 documented as of this encounter
--- OUTSIDE RECORDS SUMMARY | 2025-01-04 09:22 | XMS_ITS | Encounter Summary ---
Author Organization [employer] Address [address] [place] [address] 7 [place] [address] Care Team Providers Care Tubing Mill Setter Name Role Phone Darius Eden MD Primary Care Provide r Tip Sims PharmD Unavailable [phone] Reason for Visit * Reason Onset Date Comments Med Refill 10/26/2023 Encounter Details Date Type Department Care Team ([facility] st Contact Info) Description 10/26/2023 Telephone [facility] 230 [place], [place] [phone] Darius Eden MD 230 [place], [place] [phone] Med Refill Social History Tobacco Use Types [...] 500 MG tablet To be sent to: [facility] - [place], [place] - 230 [facility] documented in this encounter Plan of Treatment Upcoming Encounters Date Type Department Care Team (Late st Contact Info) Description 01/19/2025 10:15 AM EST Office Visit [facility] [address] [place] [address] Darius Eden MD 230 [place] [address] documented as of this encounter Visit Diagnoses Not on filedocumented in this encounter Additional Health Concerns Assessment Noted Time PHQ-9 Depression Total Score: 6 10/15/19 23 3:08 PM EDT documented as of this encounter Care Teams Tubing Mill Setter Relationship Specialty Start Date End Date Darius Eden MD 230 [place] [address] PCP - General Internal Medicine 05/21/21 Tip Sims, DevoraD [address] [place] [address] Pharmacist Internal Medicine 03/20/22 [facility] 03/20/22 [facility] 12/31/23 documented as of this encounter
--- OUTSIDE RECORDS SUMMARY | 2025-01-04 09:22 | XMS_ITS | Patient Health Record ---
Author Organization [facility] Address [address] [place] [address] Care Team Providers Care Carbonizer Tester Name Role Phone Ren Garcia Unavailable [phone] Reason For Referral No Information Plan Of Treatment No Information
--- OUTSIDE RECORDS SUMMARY | 2025-01-04 09:22 | XMS_ITS | Encounter Summary ---
Author Organization [employer] Address 75 [facility] 7 [place] [address] Care Team Providers Care Conservation Planner Name Role Phone Darius Eden MD Primary Care Provide r Tip Sims PharmD Unavailable [phone] Reason for Visit * Reason Onset Date Comments New Med Request 09/21/2023 Encounter Details Date Type Department Care Team ([facility] st Contact Info) Description 09/21/2023 Telephone [facility] 230 [place], [place] [phone] Darius Eden MD 230 [place], [place] [phone] New Med Request Social History Tobacco Use [...] Description 01/19/2025 10:15 AM EST Office Visit [facility] [address] [place] [address] [phone] Darius Eden MD [address] [place] [address] documented as of this encounter Visit Diagnoses Not on filedocumented in this encounter Additional Health Concerns Assessment Noted Time PHQ-9 Depression Total Score: 6 10/15/19 23 3:08 PM EDT documented as of this encounter Care Teams Conservation Planner Relationship Specialty Start Date End Date Darius Eden MD [address] [place] [address] [phone] PCP - General Internal Medicine 05/21/21 Tip Sims, DevoraD [address] [place] [address] [phone] Pharmacist Internal Medicine 03/20/22 [facility] 03/20/22 [facility] 12/31/23 documented as of this encounter
--- OUTSIDE RECORDS SUMMARY | 2025-01-04 09:22 | XMS_ITS | Encounter Summary ---
Author Organization [email or web address] Address 75 [facility] 7 [place] [address] Care Team Providers Care Senior Payroll Specialist Name Role Phone Darius Eden MD Primary Care Provide r Tip Sims PharmD Unavailable [phone] Reason for Visit * Reason Comments Med Refill Encounter Details Date Type Department Care Team ([facility] st Contact Info) Description 01/19/2023 Refill [facility] 230 [place], [place] [phone] Darius Eden MD 230 [place], [place] [phone] Mild depression Social History Tobacco Use Types [...] Description 01/19/2025 10:15 AM EST Office Visit [facility] [address] [place] [address] Darius Eden MD [address] [place] [address] documented as of this encounter Visit Diagnoses Diagnosis Mild depression Depressive disorder, not elsewhere classified documented in this encounter Additional Health Concerns Assessment Noted Time PHQ-9 Depression Total Score: 6 10/15/19 23 3:08 PM EDT documented as of this encounter Care Teams Senior Payroll Specialist Relationship Specialty Start Date End Date Darius Eden MD [address] [place] [address] 28[address] PCP - General Internal Medicine 05/21/21 Tip Sims, Carlos [address] [place] [phone] Pharmacist Internal Medicine 03/20/22 [facility] 03/20/22 [facility] 12/31/23 documented as of this encounter
--- OUTSIDE RECORDS SUMMARY | 2025-01-04 09:22 | XMS_ITS | Clinical Summary ---
Author Organization [facility] Address [address] [place] [address] Care Team Providers Care Market Superintendent Name Role Phone Lauren Whyte Primary Care Provider U navailable Surgical History Surgery Date Site/Laterality Comments CARPAL TUNNEL RELEASE PROCEDURE: [place] NEUROPLASTY &/TRANSPOS MEDIAN NRV CARPAL TUNNE COLONOSCOPY [...] 03/23/2012 DX:Anxiety Depression 03/23/2012 DX:Depression Diabetic cataract ([facility] V 24, [facility] V28) 09/07/2014 DX:Diabetic cataract ([facility]) GERD (gastroesophageal reflux disease) 01/12/2012 DX:GERD (gastroesophageal reflux disease) Type II or unspecified type diabetes mellitus with ophthalmic manifestations, uncontrolled(250.52) ([facility] V24, [facility] V28) 06/26/2013 DX:Type II or unspecified t ype diabetes mellitus with ophthalmic manifestations, uncontrolled(250.52) ([facility]) Tinnitus of right ear 12/07/2012 DX:Tinnitu s of right ear PVD (peripheral vascular dis ease) ([facility] V24) 06/22/2014 DX:PVD (peripheral vascular disease) ([facility]) Obstructive sleep apnea 05/27/2013 DX:Obstr uctive [...] Elbows, knees Asthma 03/08/2012 DX:Asthma Atherosclerosis of [place] co ronary artery of [place] heart with angina pectoris (CMS/HCC V24) 06/12/2015 DX:Atherosclerosis of [place] coronary artery of [place] heart with angina pectoris (HCC) Balanitis 05/25/2012 [...] Years Used Date Smoking Tobacco: Former Cigarettes 29.6 0 07/15/1968 - 02/09/1998 Smokeless Tobacco: Never [...] age to complete this topic Care Teams Market Superintendent Relationship Specialty Start Date End Date Lauren Whyte PA PCP - General Internal Medicine 01/24/21
--- OUTSIDE RECORDS SUMMARY | 2025-01-04 09:22 | XMS_ITS | Encounter Summary ---
Author Organization [employer] Address [address] [employer] 7 [place] [address] Care Team Providers Care Landscaping Supervisor Name Role Phone Darius Eden MD Primary Care Provide r Tip Sims PharmD Unavailable [phone] Reason for Visit * Reason Onset Date Comments Paperwork/Forms 01/03/2025 Encounter Details Date Type Department Care Team ([facility] st Contact Info) Description 01/03/2025 Telephone [facility] MEDICINE [address] [place], [place] [phone] Demetrice Coronado, RN [address] [place] [address] Paperwork/Forms Social History Tobacco Use Types Packs/Day Years [...] encounter Miscellaneous Notes * Telephone Encounter - Demetrice Coronado RN - 01/03/2025 3:33 PM EST Received med B form for pt's diabetes supplies. Filled out and placed on PCP's desk. Pending signature. documented in this encounter Plan of Treatment Upcoming Encounters Date Type Department Care Team (Late st Contact Info) Description 01/19/2025 10:15 AM EST Office Visit [facility] MEDICINE [address] [place] [address] Darius Eden MD [address] [place] [address] documented as of this encounter Goals Goal Patient Goal Type Associated Problems Recent Progress Patient-Stated? Author Help patients manage their type 2 diabetes Care Plan Help patients manage their type 2 diabetes Demetrice Boykin RN Weekly blood pressure task Care Plan Weekly blood pressure task Demetrice Boykin RN Help patients manage their type 2 diabetes Care Plan Help patients manage their type 2 diabetes Demetrice Boykin RN Patient has chronic kidney disease Care Plan Patient has chronic kidney disease No Cliff, Demetrice, RN Weekly blood pressure task Care Plan Weekly blood pressure task No Demetrice Coronado, RN Patient has chronic kidney disease Care Plan Patient has chronic kidney disease No Demetrice Coronado, RN documented as of this encounter Visit Diagnoses Not on filedocumented in this encounter Additional Health Concerns Active Problems Noted Date Diagnosed Date Help patients manage their type 2 diabetes 01/03 Weekly blood pressure task 01/03/2025 Help patients manage their type 2 diabetes 01/03 Patient has chronic kidney disease 01/03/2025 Weekly blood pressure task 01/03/2025 Patient has chronic kidney disease 01/03/2025 Assessment Noted Time PHQ-9 Depression Total Score: 0 11/19/19 10:20 AM EDT documented as of this encounter Care Teams Landscaping Supervisor Relationship Specialty Start Date End Date Darius Eden MD [address] [place] [address] PCP - General Internal Medicine 05/21/21 Tip Sims, DevoraD [address] [place] [address] Pharmacist Internal Medicine 03/20/22 [facility] 03/20/22 [facility] 12/31/23 documented as of this encounter
--- OUTSIDE RECORDS SUMMARY | 2025-01-04 09:22 | XMS_ITS | Encounter Summary ---
Author Organization [employer] Address [address] [facility] 7t [place] [address] Care Team Providers Care Cyber Software Engineer Name Role Phone Darius Eden MD Primary Care Provide r Tip Sims PharmD Unavailable [phone] Reason for Visit * Reason Comments Med Refill Encounter Details Date Type Department Care Team (Late st Contact Info) Description 12/05/2022 Refill [facility] CHC MED & PEDS [address] [place], [place] [phone] Darius Eden MD [address] [place], [place] [phone] Heartburn Social History Tobacco Use Types Packs/Day [...] Description 01/19/2025 10:15 AM EST Office Visit [facility] MEDICINE [address] [place] [address] Darius Eden MD [address] [place] [address] documented as of this encounter Visit Diagnoses Diagnosis Heartburn documented in this encounter Additional Health Concerns Assessment Noted Time PHQ-9 Depression Total Score: 6 10/15/19 23 3:08 PM EDT documented as of this encounter Care Teams Cyber Software Engineer Relationship Specialty Start Date End Date Darius Eden MD [address] [place] [phone] PCP - General Internal Medicine 05/21/21 Tip Sims, DevoraD [address] [place] [address] Pharmacist Internal Medicine 03/20/22 [facility] 03/20/22 [facility] 12/31/23 documented as of this encounter
--- OUTSIDE RECORDS SUMMARY | 2025-01-04 09:22 | XMS_ITS | Encounter Summary ---
Author Organization [employer] Address [address] [facility] 7t [place] [address] Care Team Providers Care Color Artist Name Role Phone Darius Eden MD Primary Care Provide r Tip Sims PharmD Unavailable [phone] Reason for Visit * Reason Comments Med Refill Encounter Details Date Type Department Care Team (Late st Contact Info) Description 02/11/2024 Refill [facility] CHC MED & PEDS [address] [place], [place] [phone] Darius Eden MD [address] [place], [place] [phone] Depressive disorder; Primary insomnia Social History Tobacco [...] Description 01/19/2025 10:15 AM EST Office Visit [facility] MEDICINE [address] [place] [address] Darius Eden MD [address] [place] [address] documented as of this encounter Visit Diagnoses Diagnosis Depressive disorder Depressive disorder, not elsewhere classified Primary insomnia Persistent disorder of initiating or maintaining sleep documented in this encounter Additional Health Concerns Assessment Noted Time PHQ-9 Depression Total Score: 0 11/19/19 24 10:20 AM EDT documented as of this encounter Care Teams Color Artist Relationship Specialty Start Date End Date Darius Eden MD [address] [place] [phone] PCP - General Internal Medicine 05/21/21 Tip Sims PharmD [address] [place] [address] Pharmacist Internal Medicine 03/20/22 [facility] 03/20/22 [facility] 12/31/23 documented as of this encounter
--- OUTSIDE RECORDS SUMMARY | 2025-01-04 09:22 | XMS_ITS | Encounter Summary ---
Author Organization [employer] Address [address] [place] [address] [address] [address] Care Team Providers Care Aquatics Specialist Name Role Phone Darius Eden MD Primary Care Provide r Tip Sims PharmD Unavailable [phone] Encounter Details Date Type Department Care Team (Late st Contact Info) Description 03/12/2022 Telephone [facility] MEDICINE [address] [place] [address] Darius Eden MD [address] [place] [phone] Social History Tobacco Use Types Packs/Day Years [...] Description 01/19/2025 10:15 AM EST Office Visit [facility] MEDICINE [address] [place] [address] [phone] Darius Eden MD [address] [place] [phone] documented as of this encounter Visit Diagnoses Not on filedocumented in this encounter Care Teams Aquatics Specialist Relationship Specialty Start Date End Date Darius Eden MD [address] [place] [address] PCP - General Internal Medicine 05/21/21 Tip Sims, DevoraD [address] [place] [address] Pharmacist Internal Medicine 03/20/22 [facility] 03/20/22 [facility] 12/31/23 documented as of this encounter
--- OUTSIDE RECORDS SUMMARY | 2025-01-04 09:22 | XMS_ITS | Encounter Summary ---
Author Organization [employer] Address [address] [place] [address] 7 [place] [address] Care Team Providers Care Sales Forecast Analyst Name Role Phone Darius Eden MD Primary Care Provide r Tip Sims PharmD Unavailable [phone] Encounter Details Date Type Department Care Team (Late st Contact Info) Description 03/05/2022 Orders Only [facility] CHC MED & PEDS [address] [place] [address] Rosaline Lamb LPN Social History Tobacco Use [...] Description 01/19/2025 10:15 AM EST Office Visit [facility] MEDICINE [address] [place], [place] [phone] Darius Eden MD [address] [place], [place] [phone] documented as of this encounter Visit Diagnoses Not on filedocumented in this encounter Care Teams Sales Forecast Analyst Relationship Specialty Start Date End Date Darius Eden MD [address] [place], [place] [phone] PCP - General Internal Medicine 05/21/21 Tip Sims, PharmD [address] [place] [phone] Pharmacist Internal Medicine 03/20/22 [facility] 03/20/22 [facility] 12/31/23 documented as of this encounter
--- OUTSIDE RECORDS SUMMARY | 2025-01-04 09:22 | XMS_ITS | Encounter Summary ---
Author Organization [employer] Address [address] [facility] 7 [place] [address] Care Team Providers Care Ui Software Developer Name Role Phone Darius Eden MD Primary Care Provide r Tip Sims PharmD Unavailable [phone] Encounter Details Date Type Department Care Team ([facility] st Contact Info) Description 07/18/2024 Telephone [facility] MEDICINE [address] [place], [place] [phone] Darius Eden MD [address] [place], [place] [phone] Social History Tobacco Use Types Packs/Day Years [...] Description 01/19/2025 10:15 AM EST Office Visit [facility] MEDICINE [address] [place] [address] Darius Eden MD [address] [place] [address] documented as of this encounter Visit Diagnoses Not on filedocumented in this encounter Additional Health Concerns Assessment Noted Time PHQ-9 Depression Total Score: 0 11/19/19 10:20 AM EDT documented as of this encounter Care Teams Ui Software Developer Relationship Specialty Start Date End Date Darius Eden MD [address] [place] [phone] PCP - General Internal Medicine 05/21/21 Tip Sims, Carlos [address] [place] [address] Pharmacist Internal Medicine 03/20/22 [facility] 03/20/22 [facility] 12/31/23 documented as of this encounter
--- OUTSIDE RECORDS SUMMARY | 2025-01-04 09:22 | XMS_ITS | Encounter Summary ---
Author Organization [employer] Address [address] [place] [address] 7 [place] [address] Care Team Providers Care Booking Supervisor Name Role Phone Darius Eden MD Primary Care Provide r Tip Sims PharmD Unavailable [phone] Reason for Visit * Reason Comments Med Refill Encounter Details Date Type Department Care Team ([facility] st Contact Info) Description 03/09/2023 Refill [facility] MEDICINE [address] [place], [place] [phone] Darius Eden MD [address] [place], [place] [phone] Acute cough Social History Tobacco Use Types [...] 01/19/2025 10:15 AM EST Office Visit [facility] MEDICINE [address] [place] [address] Darius Eden MD [address] [place] [address] documented as of this encounter Visit Diagnoses Diagnosis Acute cough documented in this encounter Additional Health Concerns Assessment Noted Time PHQ-9 Depression Total Score: 6 10/15/19 23 3:08 PM EDT documented as of this encounter Care Teams Booking Supervisor Relationship Specialty Start Date End Date Darius Eden MD [address] [place] [address] PCP - General Internal Medicine 05/21/21 Tip Sims, Carlos [address] [place] [address] Pharmacist Internal Medicine 03/20/22 [facility] 03/20/22 [facility] 12/31/23 documented as of this encounter
--- OUTSIDE RECORDS SUMMARY | 2025-01-04 09:22 | XMS_ITS | Encounter Summary ---
Author Organization [employer] Address [address] [facility] 7 [place] [address] Care Team Providers Care Drop Wire Hanger Name Role Phone Darius Eden MD Primary Care Provide r Tip Sims PharmD Unavailable [phone] Reason for Visit * Reason Comments Med Change Request Encounter Details Date Type Department Care Team ([facility] Contact Info) Description 11/20/2023 Refill [facility] MEDICINE [address] [place], [place] [phone] Draius Eden MD [address] [place], [place] [phone] Primary insomnia Social History Tobacco Use Types [...] 01/19/2025 10:15 AM EST Office Visit [facility] MEDICINE [address] [place] [address] Darius Eden MD [address] [place] [address] documented as of this encounter Visit Diagnoses Diagnosis Primary insomnia Persistent disorder of initiating or maintaining sleep documented in this encounter Additional Health Concerns Assessment Noted Time PHQ-9 Depression Total Score: 0 11/19/19 24 10:20 AM EDT documented as of this encounter Care Teams Drop Wire Hanger Relationship Specialty Start Date End Date Darius Eden MD [address] [place] [address] PCP - General Internal Medicine 05/21/21 Tip Sims, Carlos [address] [place] [address] Pharmacist Internal Medicine 03/20/22 [facility]ist [facility] 03/20/22 [facility] 12/31/23 documented as of this encounter
--- OUTSIDE RECORDS SUMMARY | 2025-01-04 09:22 | XMS_ITS | Encounter Summary ---
Author Organization [employer] Address [address] [facility] 7t [place] [address] Care Team Providers Care Drug Enforcement Administration Agent Name Role Phone Darius Eden MD Primary Care Provide r Tip Sims PharmD Unavailable [phone] Reason for Visit * Reason Comments Med Refill Encounter Details Date Type Department Care Team (Late st Contact Info) Description 02/16/2024 Refill [facility] CHC MED & PEDS [address] [place], [place] [phone] Darius Eden MD [address] [place], [place] [phone] Primary insomnia Social History Tobacco Use Types [...] Description 01/19/2025 10:15 AM EST Office Visit [facility] MEDICINE [address] [place] [address] Darius Eden MD [address] [place] [address] documented as of this encounter Visit Diagnoses Diagnosis Primary insomnia Persistent disorder of initiating or maintaining sleep documented in this encounter Additional Health Concerns Assessment Noted Time PHQ-9 Depression Total Score: 0 11/19/19 24 10:20 AM EDT documented as of this encounter Care Teams Drug Enforcement Administration Agent Relationship Specialty Start Date End Date Darius Eden MD [address] [place] [address] PCP - General Internal Medicine 05/21/21 Tip Sims, DevoraD [address] [place] [address] Pharmacist Internal Medicine 03/20/22 [facility] Pharmacist [facility] 03/20/22 [facility] 12/31/23 documented as of this encounter
--- OUTSIDE RECORDS SUMMARY | 2025-01-04 09:22 | XMS_ITS | Clinical Summary ---
Author Organization [employer] Address [address] [place] [address] 7 [place] [address] Care Team Providers Care Carbonation Tester Name Role Phone Darius Eden MD Primary Care Provide r Tip Sims PharmD Unavailable [phone] Allergies No known active allergies Medications Breo [...] with other specified complication, unspecified whether termite renewal inspector insulin use (HCC) Take 1 tablet by mouth Once per day. 30 tablet 11 Active insulin pen needle (Easy Touch Pen Orbisonia) 31G X 8 mm misc USE DIRECTED FOUR TIMES DAILY 100 each 11 Active Acetaminophen Extra Strength 500 MG tabletIndicati ons:Acute pain of right knee TAKE 2 TABLETS BY MOUTH EVERY 8 HOURS NEEDED FOR PAIN 60 tablet Active insulin glargine (Basaglar KwikPen) 100 UNIT/ML pen Inject 80 Units under the skin at bedtime. 3 mL 12 5 11:43 AM EST 025 2025 Active Blood Glucose Monitoring Suppl (CalleooToFlipswap Verio Flex System) w/Device kitIndications :Type 2 diabetes mellitus without complication, unspecified whether termite renewal inspector insulin use TEST BLOOD SUGAR EVERY DAY 1 kit Active Lancets (CalleooTouch Delica Plus [id number]) miscIndication s:Type 2 diabetes mellitus without complication, unspecified whether detention insulin use TEST BLOOD SUGAR THREE TIMES DAILY 100 each 1 025 Active glucose blood (OneTouch Verio) test stripIndicatio ns:Type 2 diabetes mellitus without complication, unspecified whether detention insulin use TEST BLOOD SUGAR THREE TIMES DAILY 100 strip 1 025 Active insulin aspart (NovoLOG FLEXPEN) 100 UNIT/ML pen Inject 16 Units under the skin before breakfast, before lunch, and before evening meal. 10 mL 3 5 11:43 AM EST 025 Active Ventolin HFA 108 (90 Base) MCG/ACT inhaler INHALE 2 PUFFS BY MOUTH EVERY 4 TO 6 HOURS NEEDED 18 g 2 025 Active escitalopram (Lexapro) 10 MG tabletIndicati ons:Depressive disorder TAKE 1 TABLET BY MOUTH EVERY EVENING 30 tablet 3 5 11:43 AM EST 025 Active Trulicity 4.5 MG/0.5ML solution auto-injectorI ndications:Typ e 2 diabetes mellitus with other specified complication, unspecified whether termite renewal inspector insulin use (HCC) INJECT ONE PEN (= 4.5MG) SUBCUTANEOUSLY ONCE A WEEK DIRECTED 2 mL 3 5 11:43 AM EST 025 Active traZODone (Desyrel) 100 MG tabletIndicati ons:Primary insomnia TAKE 1 AND 1/2 TABLETS BY MOUTH AT BEDTIME 45 tablet 3 5 11:43 AM EST 025 Active melatonin 3 MG tabletIndicati ons:Mild depression TAKE 1 TABLET BY MOUTH AT BEDTIME 30 tablet 3 025 Active melatonin 3 MG tabletIndicati ons:Mild depression TAKE 1 TABLET BY MOUTH AT BEDTIME 30 tablet 3 025 2024 Discontinued traZODone (Desyrel) 100 MG tabletIndicati ons:Primary insomnia TAKE 1 AND 1/2 TABLETS BY MOUTH AT BEDTIME 45 tablet 3 025 2024 Discontinued Active Problems Problem [...] Plan (02/24/2023 9:26 AM EST): Pt c/o juli on his neck, has a Hx of [...] Plan (10/14/2022 3:13 PM EDT): Pt c/o juli on his neck, has a Hx of [...] 11:24 AM EST): Under the care of Telephone Switchboard Operator at [facility] , last seen 01/13/2024 Assessment & Plan (02/24/2023 9:24 AM EST): Under the care of Telephone Switchboard Operator at [facility] , last seen 01/29/2023 [...] 02/09/2019 Essential hypertension 07/28/2011 Overview (06/23/2022): Joined [facility] 10/2021. Frequently misses appointments. Followed by cardiology. Hx of CABG/ ASVCD. Was switched to [facility] pharmacy with medboxes with improved adherence Current [...] Patient here for a HDF Admitted to [facility] for prostate and rectal [...] follow up with RN for ear lavage aftermilfordsds Mild depression 06/23/2022 06/03/2024 Assessment & Plan [...] and Ezetimide 10 mg ( Prescribed by Telephone Switchboard Operator ) last seen 09/24/2021 . LFTS [...] Encounters Date Type Department Care Team Description 01/03/2025 Telephone [facility] [address] [place] [phone] Demetrice Coronado, RN Paperwork/Forms 12/23/2024 Refill [facility] [address] [place] [address] Darius Eden MD Primary insomnia; Mild depression 12/06/2024 Telephone [facility] [address] [place] [address] Darius Eden MD Referral 11/23/2024 Refill [facility] [address] [place] [address] Darius Eden MD Type 2 diabetes mellitus with other specified complication, unspecified whether detention insulin use ([facility]) 10/24/2024 Telephone [facility] [address] [place] [address] Darius Eden MD January10/22/2024 Refill [facility] [address] [place], [place] [phone] Salima Concepcion MD Depressive disorder 10/11/2024 10:00 AM EDT Office Visit [facility] [address] [place] [address] Darius Eden MD Type 2 diabetes mellitus with diabetic peripheral angiopathy without gangrene, with long-term current use of insulin ([facility]/HCC) (Primary Dx); Essential hypertension; Moderate persistent asthma without complication; Pure hypercholesterolemia; Acute pain of right knee; Benign prostatic hyperplasia with lower urinary tract symptoms, symptom details unspecified; Obstructive sleep apnea syndrome; Preventative health care 10/11/2024 Travel 10/08/2024 Refill [facility] [address] [place], [place] [phone] Darius Eden MD from Last 3 Months [...] Description 01/19/2025 10:15 AM EST Office Visit [facility] [address] [place], [place] [phone] Darius Eden MD [address] [place], [place] [phone] Health Maintenance Due Date Last Done Comments Zoster Vaccines (1 of 2) 1998 RSV Patients and Patients Aged 60 years or older (1 - 1-dose 75+ series) 08/20/2023 COVID-19 Vaccine ( - season) 2024 06/10/2020, 05/13/2020 Influenza Vaccine (#1) [...] age to complete this topic Sigmoidoscopy Discontinued Goals Goal Patient Goal Type Associated Problems Recent Progress Patient-Stated? Author Help patients manage their type 2 diabetes Care Plan Help patients manage their type 2 diabetes No Demetrice Cornoado RN Weekly blood pressure task Care Plan Weekly blood pressure task No Demetrice Coronado, RAYSA Help patients manage their type 2 diabetes Care Plan Help patients manage their type 2 diabetes No Demetrice Coronado, RAYSA Patient has chronic kidney disease Care Plan Patient has chronic kidney disease No Demetrice Coronado, RN Weekly blood pressure task Care Plan Weekly blood pressure task No Demetrice Coronado, RN Patient has chronic kidney disease Care Plan Patient has chronic kidney disease No Demetrice Coronado, softball umpire Procedure Name Priority Date/Time Associated Diagnosis Comments POCT GLUCOSE Routine 10/11/2024 10:20 AM EDT Type 2 diabetes mellitus with diabetic peripheral angiopathy without gangrene, with long-term current use of insulin (CMS/HCC) POCT GLYCOSYLATED HEMOGLOBIN (HGB A1C) Routine 10/11/2024 10:19 AM EDT Type 2 diabetes mellitus with diabetic peripheral angiopathy without gangrene, with long-term current use of insulin (CMS/HCC) ALBUMIN, RANDOM URINE W/CREATININE Routine 06/06/2024 9:49 [...] glucose manually resulted (10/11/2024 10:20 AM EDT) Pathologist [facility] Glucose Blood, POC 170 60 - 200 mg/dL QC Media Lot # [id number] Lot# Expiration Date [id number] Blood Capillary blood specimen / Unknown 10/11/2024 10:20 AM EDT Darius Christian MD POINT OF CARE TEST EN TER/EDIT ORDERABLES Final Result * (ABNORMAL) POCT glycosylated hemoglobin (Hgb A1c) (10/11/2024 10:19 AM EDT) Hemoglobin A1C 7.2(A) 4.0 - 5.7 % QC Media Lot # [id number] Lot# Expiration Date ,[id number] Blood Capillary blood specimen / Unknown 10/11/2024 10:19 AM EDT Darius Christian MD POINT OF CARE TEST EN TER/EDIT ORDERABLES Final Result * Albumin, Random Urine W/Creatinine (06/06/2024 9:49 AM EDT) Creatinine, Urine 387.16 mg/dL [facility] Microalbumin Urine 61.0 mg/L [facility] Microalbum Creatinine Ratio Ur 15.7 <30 ug/mg cr [facility] Comment:Albumin/Creatinine R atio Reference Ranges: Normal: < 30 ug/mg creatinine Microalbuminuria: 30 - 300 ug/mg creatinineClinical Albuminuria: > 300 ug/mg creatinine Urine (Urine, Random) 06/06/2024 9:49 AM EDT 06/06/2024 11:03 AM EDT Avery Ceballos [facility] URINE ORDERABLES Cassidy l Result [facility] [address] [place] [phone] * Lipid Panel, Standard (06/06/2024 9:49 AM EDT) Triglycerides 83 <150 mg/dL [facility] Comment:Desirable Triglyceri de: less than 150 mg/dLBorderline High Triglyceride 150-199 mg/dLHigh Triglyceride: 200-499 mg/dLVery High Triglyceride: greater than or equal to 5OO mg/dL Cholesterol 101 <200 mg/dL [facility] Comment:Desirable Cholestero l: less than 200 mg/dLBorderline High Cholesterol: 200-239 mg/dLHigh Cholesterol: greater than 239 mg/dL LDL Cholesterol Calculated 44 <100 mg/dL [facility] Comment:Desirable LDL: less than 100 mg/dLNear Optimal/Above Optimal LDL: 110- 129 mg/dLBorderline High LDL: 130-159 mg/dLHigh LDL: 160-189 mg/dLVery High LDL: greater than or equal to 190 mg/dL HDL Cholesterol 41 >40 mg/dL [facility] Comment:Desirable HDL: great er than 40 mg/dL Note: This HDL assay may give artificially low results in patients with liver disease. Blood Venous blood specimen / Unknown 06/06/2024 9:49 AM EDT 06/06/2024 10:57 AM EDT Darius Christian MD LAB BLOOD ORDERABLES Final Result Performing Organization Address City/[facility]/ZIP Co de Phone Number [facility] [address] [place] [address] [phone] * Hm Colonoscopy (06/25/2023) Pathologist [facility] Colonoscopy Normal Normal Impressions Darius Eden MD - 06/25/2023 Tubular Adenoma Historical Provider HEALTH MAINTENANCE Final Result * HEPATITIS C AB W/REFL TO HCV RNA, QN, PCR (05/22/2021 8:46 AM EDT) Pathologist [facility] HEPATITIS C ANTIBODY NON-REACT TABATHA NON-REACT [facility] INDEX 0.01 <1.00 [facility] Comment: HCV antibody was non-reactive. There is no laboratory evidence of HCV infection. In most cases, no further action is required. However, if recent HCV exposure is suspected, a test for HCV RNA (test code 68985) is suggested. For additional information please refer to http://education.[employer].Courseload/faq/KBB00f6 (This link is being provided for informational/ educational purposes only.) 05/22/2021 8:46 AM EDT Darius Christian MD HISTORICAL/NON ORDERA BLE LABS Final Result [facility] [address] from Last 3 Months or Most Recently Relevant to Health Maintenance Additional Health Concerns Active Problems Noted Date Diagnosed Date Help patients manage their type 2 diabetes 01/03 Weekly blood pressure task 01/03/2025 Help patients manage their type 2 diabetes 01/03 Patient has chronic kidney disease 01/03/2025 Weekly blood pressure task 01/03/2025 Patient has chronic kidney disease 01/03/2025 Insurance MEDICARE [facility] Care Teams Carbonation Tester Relationship Specialty Start Date End Date Darius Eden MD [address] [place] [address] [phone] PCP - General Internal Medicine 05/21/21 Tip Sims, PharmD [address] [place] [phone] Pharmacist Internal Medicine 03/20/22 [facility] 03/20/22 [facility] 12/31/23
--- OUTSIDE RECORDS SUMMARY | 2025-01-04 09:22 | XMS_ITS | Encounter Summary ---
Author Organization [employer] Address [address] [facility] 7 [place] [address] Care Team Providers Care Water Plant Maintenance Mechanic Name Role Phone Darius Eden MD Primary Care Provide r Tip Sims PharmD Unavailable [phone] Reason for Visit * Reason Onset Date Comments Call Back Request 01/07/2023 Encounter Details Date Type Department Care Team ([facility] Contact Info) Description 01/07/2023 Telephone [facility] [address] [place], [place] [phone] Darius Eden MD [address] [place], [place] [phone] Call Back Request Social History Tobacco Use [...] Description 01/19/2025 10:15 AM EST Office Visit [facility] [address] [place] [phone] Darius Eden MD [address] [place] [phone] documented as of this encounter Visit Diagnoses Not on filedocumented in this encounter Additional Health Concerns Assessment Noted Time PHQ-9 Depression Total Score: 6 10/15/19 23 3:08 PM EDT documented as of this encounter Care Teams Water Plant Maintenance Mechanic Relationship Specialty Start Date End Date Darius Eden MD [address] [place] [phone] PCP - General Internal Medicine 05/21/21 Tip Sims, DevoraD [address] [place] [phone] Pharmacist Internal Medicine 03/20/22 [facility] 03/20/22 [facility] 12/31/23 documented as of this encounter
== END 2025-01-04 09:54 | disposition home or self-care (01) ==
LOC: HO.HUSH 08:53
PROVIDERS: PCP Internal Medicine; Visit Provider Urology
DX: Z13.9 Encounter for screening, unspecified (principal); N32.89 Other specified disorders of bladder
CPT/HCPCS: 99213; G2211

== ENCOUNTER → 2025-01-04 08:52 | Outpatient (BNVA) | payer MEDICARE, MEDICAID, SELFPAY | PROVIDERS: PCP Internal Medicine; Visit Provider Urology | DX: N32.89 Other specified disorders of bladder (principal); N40.1 Benign prostatic hyperplasia with lower urinary tract symptoms; R33.9 Retention of urine, unspecified; Z13.9 Encounter for screening, unspecified; E11.9 Type 2 diabetes mellitus without complications; Z87.440 Personal history of urinary (tract) infections; Z98.890 Other specified postprocedural states | CPT/HCPCS: 51798; 81003; 99212 ==

== ENCOUNTER 2025-01-16 12:32 | Outpatient (AMB) | payer MEDICARE, MEDICAID, SELFPAY ==
[2025-01-16 13:04] VITALS: BMI 31.0
--- NOTE | 2025-01-16 13:04 | A.OFFVIS_ITS ---
Vital Signs 01/16/25 13:04 Height 5 ft 6 in Weight 192 lb BMI 31.0 Intake Visit Reasons: OV- Left knee inj last 06/13/24 per AA Intake Note: Len is a 74 year old male with a history of T2DM who presents today for follow up of his Left Knee Osteoarthritis status post Left Knee injection, DOS: 06/13/24. Patient reports he continues to have clocking and popping of the left knee. He is interested on repeating his injection today. Supervisor Billposting Required: Yes Supervisor Billposting Language: Metal Bench Patternmaker Services: Supervisor Billposting Present Supervisor Billposting Name: FRIEDA Patel/BOBY Allergies No Known Allergies (No Known Allergies*) Allergy (Verified 01/16/25 13:05) HPI HPI OV- Left knee inj last 06/13/24 per AA: Details: Len is a 74 year old male with a history of T2DM who presents today for follow up of his Left Knee Osteoarthritis status post Left Knee injection, DOI: 06/13/24. Patient reports he continues to have clocking and popping of the left knee. Patient states that he did experience relief for a significant period of time after last injection, so he is interested in further injections He is interested on repeating his injection today. No other acute complaints or concerns at this time. [facility] Medical History Osteoarthritis of knees, bilateral Type 2 diabetes mellitus with unspecified complications Sepsis Hyperthyroidism Multinodular thyroid HLD (hyperlipidemia) HTN (hypertension) Obesity NSTEMI (non-ST elevated myocardial infarction) CAD (coronary artery disease) Diabetes mellitus Myocardial infarct Surgical History History of esophagogastroduodenoscopy (EGD) Hx of colonoscopy Hx of ultrasound guided needle biopsy Hx of CABG (~07/2016) Family History Mother Cardiovascular disease Father Medical history unknown Sister Cancer Brother Cancer Social History Household Members: Family Housing: Apartment Are you a primary career development specialist to a significant other at home: No Do you presently have visiting nurse or other home services: No Alcohol intake: former Patient Tobacco Use Status: Former Tobacco user Second Hand Smoke Exposure: No service: No Current occupational status: unemployed Physical Exam Vital Signs: BMI result Body Mass Index 31.0 Assessment & Plan Assessment & Plan (1) Bilateral primary osteoarthritis of knee: Code(s): M17.0 - Bilateral primary osteoarthritis of knee Category: Medical Plan 1. Left knee osteoarthritis Patient is educated about this condition Patient is educated about the typical treatment course The risks and benefits of a steroid injection including but not limited to risk of damage to blood vessels, nerves, tendons, infection, skin bleaching, failure to improve symptoms, increased pain, and possible need for further injections or other intervention were discussed with the patient and the patient wishes to proceed with the steroid injection. Once consent was obtained, I aseptically prepped the area over the anterolateral joint line of the left knee. I then injected the area over the lateral epicondyle with a combination of 40 mg of dexamethasone and 8 mL of 1% lidocaine. The patient tolerated the procedure well with no complications. If the patient continues to experience symptoms over the following few weeks or months, they can make an appointment to return and discuss alternative treatment measures, such as physical therapy. Follow-up prn Coding Level of Care Code Procedure Only Diagnoses Bilateral primary osteoarthritis of knee M17.0
--- OUTSIDE RECORDS SUMMARY | 2025-01-16 21:08 | XMS_ITS | Encounter Summary ---
Author Organization [employer] Address [address] [place] [address] 7 [place] [address] Care Team Providers Care Vegetable Tier Name Role Phone Darius Eden MD Primary Care Provide r Tip Sims PharmD Unavailable [phone] Encounter Details Date Type Department Care Team (Late st Contact Info) Description 03/05/2022 Orders Only [facility] [address] [place] [phone] Rosaline Lamb LPN Social History Tobacco Use [...] Description 01/19/2025 10:15 AM EST Office Visit [facility] [address] [place], [place] [phone] Darius Eden MD [address] [place], [place] [phone] documented as of this encounter Visit Diagnoses Not on filedocumented in this encounter Care Teams Vegetable Tier Relationship Specialty Start Date End Date Darius Eden MD [address] [place], [place] [phone] PCP - General Internal Medicine 05/21/21 Tip Sims, PharmD [address] [place] [address] [phone] Pharmacist Internal Medicine 03/20/22 [facility] 03/20/22 [facility] 12/31/23 documented as of this encounter
--- OUTSIDE RECORDS SUMMARY | 2025-01-16 21:09 | XMS_ITS | Encounter Summary ---
Author Organization [employer] Address [address] [place] [address] [address], [place] [address] Care Team Providers Care Third Grade Teacher Name Role Phone Darius Eden MD Primary Care Provide r Tip Sims PharmD Unavailable [phone] Encounter Details Date Type Department Care Team (Late st Contact Info) Description 03/12/2022 Telephone [facility] [address] [place] [address] Darius Eden MD [address] [place] [phone] Social History Tobacco Use Types Packs/Day Years [...] Description 01/19/2025 10:15 AM EST Office Visit [facility] [address] [place] [address] [phone] Darius Eden MD [address] [place] [phone] documented as of this encounter Visit Diagnoses Not on filedocumented in this encounter Care Teams Third Grade Teacher Relationship Specialty Start Date End Date Darius Eden MD [address] [place] [address] PCP - General Internal Medicine 05/21/21 Tip Sims, DevoraD [address] [place] [phone] Pharmacist Internal Medicine 03/20/22 [facility] 03/20/22 [facility] 12/31/23 documented as of this encounter
--- OUTSIDE RECORDS SUMMARY | 2025-01-16 21:09 | XMS_ITS | Encounter Summary ---
Author Organization [employer] Address [address] [place] [address] 7 [place] [address] Care Team Providers Care Field Sales Agent Name Role Phone Darius Eden MD Primary Care Provide r Tip Sims PharmD Unavailable [phone] Reason for Visit * Reason Onset Date Comments Med Refill 10/26/2023 Encounter Details Date Type Department Care Team ([facility] st Contact Info) Description 10/26/2023 Telephone [facility] [address] [place], [place] [phone] Darius Eden MD [address] [place], [place] [phone] Med Refill Social History Tobacco Use Types [...] 500 MG tablet To be sent to: [facility] [place], [place] - [address] [facility] documented in this encounter Plan of Treatment Upcoming Encounters Date Type Department Care Team (Late st Contact Info) Description 01/19/2025 10:15 AM EST Office Visit [facility] [address] [place] [address] Darius Eden MD [address] [place] [address] documented as of this encounter Visit Diagnoses Not on filedocumented in this encounter Additional Health Concerns Assessment Noted Time PHQ-9 Depression Total Score: 6 10/15/19 23 3:08 PM EDT documented as of this encounter Care Teams Field Sales Agent Relationship Specialty Start Date End Date Darius Eden MD [address] [place] [address] PCP - General Internal Medicine 05/21/21 Tip Sims, DevoraD [address] [place] [address] Pharmacist Internal Medicine 03/20/22 [facility] 03/20/22 [facility] 12/31/23 documented as of this encounter
--- OUTSIDE RECORDS SUMMARY | 2025-01-16 21:09 | XMS_ITS | Encounter Summary ---
Author Organization [employer] Address [address] [place] [address] 7 [place] [address] Care Team Providers Care Stock Dealer Name Role Phone Darius Eden MD Primary Care Provide r Tip Sims PharmD Unavailable [phone] Encounter Details Date Type Department Care Team (Late st Contact Info) Description 03/05/2022 Orders Only [facility] [address] [place] [phone] Britney Burton LPN Social History Tobacco Use [...] AM EST Office Visit [facility] [address] [place] [address] [phone] Darius Eden MD [address] [place] [address] [phone] documented as of this encounter Visit Diagnoses Not on filedocumented in this encounter Care Teams Stock Dealer Relationship Specialty Start Date End Date Daruis Eden MD [address] [place] [phone] PCP - General Internal Medicine 05/21/21 Tip Sims, PharmD [address] [place] [phone] Pharmacist Internal Medicine 03/20/22 [facility] 03/20/22 [facility] 12/31/23 documented as of this encounter
--- OUTSIDE RECORDS SUMMARY | 2025-01-16 21:10 | XMS_ITS | Encounter Summary ---
Author Organization [employer] Address [address] [place] [address] 7 [place] [address] Care Team Providers Care Human Resources Recruiter Name Role Phone Darius Eden MD Primary Care Provide r Tip Sims PharmD Unavailable [phone] Reason for Visit * Reason Onset Date Comments CHART PREP 01/12/2025 Encounter Details Date Type Department Care Team ([facility] st Contact Info) Description 01/12/2025 Telephone [facility] MEDICINE [address] [place], [place] [phone] Darius Eden MD [address] [place], [place] [phone] CHART PREP Social History Tobacco Use Types Packs/Day Years [...] encounter Miscellaneous Notes * Telephone Encounter - Elen Esqueda MA - 01/12/2025 2:57 PM EST Chart Prep Labs: not applicable Images: not applicable Referrals: not applicable Vaccines due: Covid, Flu, and RSV Screenings: not applicable Overdue care gaps: SDOH, PHQ-9, RADHA-7, Oral health screening, and Disability screen documented in this encounter Plan of Treatment Upcoming Encounters Date Type Department Care Team (Late st Contact Info) Description 01/19/2025 10:15 AM EST Office Visit [facility] MED[facility]INE [address] [place] [address] Darius Eden MD [address] [place] [address] documented as of this encounter Goals Goal Patient Goal Type Associated Problems Recent Progress Patient-Stated? Author Help patients manage their type 2 diabetes Care Plan Help patients manage their type 2 diabetes Demetrice Boykin, RAYSA Weekly blood pressure task Care Plan Weekly blood pressure task Demetrice BoykinRAYSA Help patients manage their type 2 diabetes Care Plan Help patients manage their type 2 diabetes No Demetrice Coronado RN Patient has chronic kidney disease Care Plan Patient has chronic kidney disease No Demetrice Coronado RN Weekly blood pressure task Care Plan Weekly blood pressure task No Demetrice Coronado RN Patient has chronic kidney disease Care Plan Patient has chronic kidney disease No Demetrice Coronado RN Weekly blood pressure task Care Plan Weekly blood pressure task No Darius Eden MD Weekly blood pressure task Care Plan Weekly blood pressure task No Darius Eden MD Patient has chronic kidney disease Care Plan Patient has chronic kidney disease No Darius Eden MD Patient has chronic kidney disease Care Plan Patient has chronic kidney disease No Darius Eden MD Weekly blood pressure task Care Plan Weekly blood pressure task No Jolie Luna Weekly blood pressure task Care Plan Weekly blood pressure task No Jolie Luna Patient has chronic kidney disease Care Plan Patient has chronic kidney disease No Jolie Luna Patient has chronic kidney disease Care Plan Patient has chronic kidney disease No Jolie Luna Weekly blood pressure task Care Plan Weekly blood pressure task No Elen Esqueda [place] Weekly blood pressure task Care Plan Weekly blood pressure task No Elen Esqueda [place] Patient has chronic kidney disease Care Plan Patient has chronic kidney disease No Elen Esqueda [place] Patient has chronic kidney disease Care Plan Patient has chronic kidney disease No Elen Esqueda [place] documented as of this encounter Visit Diagnoses Not on filedocumented in this encounter Additional Health Concerns Active Problems Noted Date Diagnosed Date Help patients manage their type 2 diabetes 01/03 Weekly blood pressure task 01/03/2025 Help patients manage their type 2 diabetes 01/03 Patient has chronic kidney disease 01/03/2025 Weekly blood pressure task 01/03/2025 Patient has chronic kidney disease 01/03/2025 Weekly blood pressure task 01/04/2025 Weekly blood pressure task 01/04/2025 Patient has chronic kidney disease 01/04/2025 Patient has chronic kidney disease 01/04/2025 Weekly blood pressure task 01/09/2025 Weekly blood pressure task 01/09/2025 Patient has chronic kidney disease 01/09/2025 Patient has chronic kidney disease 01/09/2025 Weekly blood pressure task 01/12/2025 Weekly blood pressure task 01/12/2025 Patient has chronic kidney disease 01/12/2025 Patient has chronic kidney disease 01/12/2025 Assessment Noted Time PHQ-9 Depression Total Score: 0 11/19/19 10:20 AM EDT documented as of this encounter Care Teams Human Resources Recruiter Relationship Specialty Start Date End Date Darius Eden MD [address] [place] [address] PCP - General Internal Medicine 05/21/21 Tip Sims PharmD [address] [place] [address] Pharmacist Internal Medicine 03/20/22 [facility] 03/20/22 [facility] 12/31/23 documented as of this encounter
--- OUTSIDE RECORDS SUMMARY | 2025-01-16 21:10 | XMS_ITS | Encounter Summary ---
Author Organization [employer] Address 75 [facility] 7 [place] [address] Care Team Providers Care Prime Minister Name Role Phone Darius Eden MD Primary Care Provide r Tip Sims PharmD Unavailable [phone] Reason for Visit * Reason Onset Date Comments New Med Request 09/21/2023 Encounter Details Date Type Department Care Team ([facility] st Contact Info) Description 09/21/2023 Telephone [facility] MEDICINE [address] [place], [place] [phone] Darius Eden MD 230 [place], [place] [phone] New Med Request Social History Tobacco Use [...] Description 01/19/2025 10:15 AM EST Office Visit [facility] MED[facility]INE [address] [place] [address] [phone] Darius Eden MD [address] [place] [phone] documented as of this encounter Visit Diagnoses Not on filedocumented in this encounter Additional Health Concerns Assessment Noted Time PHQ-9 Depression Total Score: 6 10/15/19 23 3:08 PM EDT documented as of this encounter Care Teams Prime Minister Relationship Specialty Start Date End Date Darius Eden MD [address] [place] [address] [phone] PCP - General Internal Medicine 05/21/21 Tip Sims, DevoraD [address] [place] [address] [phone] Pharmacist Internal Medicine 03/20/22 [facility] 03/20/22 [facility] 12/31/23 documented as of this encounter
--- OUTSIDE RECORDS SUMMARY | 2025-01-16 21:10 | XMS_ITS | Encounter Summary ---
Author Organization [employer] Address 75 [facility] 7 [place] [address] Care Team Providers Care Supervisor Education Name Role Phone Darius Eden MD Primary Care Provide r Tip Sims PharmD Unavailable [phone] Reason for Visit * Reason Comments Med Refill Encounter Details Date Type Department Care Team ([facility] st Contact Info) Description 01/16/2025 Refill [facility] MED[facility]INE [address] [place], [place] [phone] Darius Eden MD 230 [place], [place] [phone] Social History Tobacco Use Types Packs/Day Years [...] Office Visit [facility] MEDICINE [address] [place] [address] Darius Eden MD [address] [place] [address] documented as of this encounter Goals Goal Patient Goal Type Associated Problems Recent Progress Patient-Stated? Author Help patients manage their type 2 diabetes Care Plan Help patients manage their type 2 diabetes No Demetrice Coronado RN Weekly blood pressure task Care Plan Weekly blood pressure task No Demetrice Coronado RN Help patients manage their type 2 [...] documented as of this encounter Care Teams Supervisor Education Relationship Specialty Start Date End Date Darius Eden MD [address] [place] [phone] PCP - General Internal Medicine 05/21/21 Tip Sims, DevoraD [address] [place] [phone] Pharmacist Internal Medicine 03/20/22 [facility] 03/20/22 [facility] 12/31/23 documented as of this encounter
--- OUTSIDE RECORDS SUMMARY | 2025-01-16 21:11 | XMS_ITS | Encounter Summary ---
Author Organization [employer] Address [address] [facility] 7 [place] [address] Care Team Providers Care Concert Singer Name Role Phone Darius Eden MD Primary Care Provide r Tip Sims PharmD Unavailable [phone] Reason for Visit * Reason Comments Med Change Request Encounter Details Date Type Department Care Team ([facility] Contact Info) Description 11/20/2023 Refill [facility] MEDICINE [address] [place], [place] [phone] Darius Eden MD 230 [place], [place] [phone] Primary insomnia Social History Tobacco Use Types [...] Description 01/19/2025 10:15 AM EST Office Visit [facility] MEDICINE [address] [place] [address] Darius Eden MD [address] [place] [address] documented as of this encounter Visit Diagnoses Diagnosis Primary insomnia Persistent disorder of initiating or maintaining sleep documented in this encounter Additional Health Concerns Assessment Noted Time PHQ-9 Depression Total Score: 0 11/19/19 24 10:20 AM EDT documented as of this encounter Care Teams Concert Singer Relationship Specialty Start Date End Date Darius Eedn MD [address] [place] [phone] PCP - General Internal Medicine 05/21/21 Tip Sims, Carlos [address] [place] [phone] Pharmacist Internal Medicine 03/20/22 [facility] 03/20/22 [facility] 12/31/23 documented as of this encounter
--- OUTSIDE RECORDS SUMMARY | 2025-01-16 21:11 | XMS_ITS | Clinical Summary ---
Author Organization [employer] Address [address] [place] [address] 7 [place] [address] Care Team Providers Care Human Projectile Name Role Phone Darius Eden MD Primary Care Provide r Tip Sims PharmD Unavailable [phone] Allergies No known active allergies Medications Breo [...] before breakfast and before evening meal. Active docusate sodium (Colace) 100 MG capsule [...] other specified complication, unspecified whether termite control servicer insulin use (HCC) Take 1 tablet by mouth Once per day. 30 tablet 11 Active insulin pen needle (Easy Touch Pen Mccammon) 31G X 8 mm misc USE DIRECTED FOUR TIMES DAILY 100 each 11 Active Acetaminophen Extra Strength 500 MG tabletIndicati ons:Acute pain of right knee TAKE 2 TABLETS BY MOUTH EVERY 8 HOURS NEEDED FOR PAIN 60 tablet Active insulin glargine (Basaglar KwikPen) 100 UNIT/ML pen Inject 80 Units under the skin at bedtime. 3 mL 12 12/30/19 25 11:43 AM EST 025 2025 Active Blood Glucose Monitoring Suppl (Money Toolkit Verio Flex System) w/Device kitIndications :Type 2 diabetes mellitus without complication, unspecified whether termite control servicer insulin use TEST BLOOD SUGAR EVERY DAY 1 kit Active Lancets (WKS RestaurantTouch Delica Plus [id number]) miscIndication s:Type 2 diabetes mellitus without complication, unspecified whether termite control servicer insulin use TEST BLOOD SUGAR THREE TIMES DAILY 100 each 1 Active glucose blood (OneTouch Verio) test stripIndicatio ns:Type 2 diabetes mellitus without complication, unspecified whether mcfp insulin use TEST BLOOD SUGAR THREE TIMES DAILY 100 strip 1 Active insulin aspart (NovoLOG FLEXPEN) 100 UNIT/ML pen Inject 16 Units under the skin before breakfast, before lunch, and before evening meal. 10 mL 3 12/30/19 11:43 AM EST Active Ventolin HFA 108 (90 Base) MCG/ACT inhaler INHALE 2 PUFFS BY MOUTH EVERY 4 TO 6 HOURS NEEDED 18 g 2 025 Active escitalopram (Lexapro) 10 MG tabletIndicati ons:Depressive disorder TAKE 1 TABLET BY MOUTH EVERY EVENING 30 tablet 3 12/30/19 11:43 AM EST 025 Active Trulicity 4.5 MG/0.5ML solution auto-injectorI ndications:Typ e 2 diabetes mellitus with other specified complication, unspecified whether mcfp insulin use (HCC) INJECT ONE PEN (= 4.5MG) SUBCUTANEOUSLY ONCE A WEEK DIRECTED 2 mL 3 12/30/19 11:43 AM EST 025 Active traZODone (Desyrel) 100 MG tabletIndicati ons:Primary insomnia TAKE 1 AND 1/2 TABLETS BY MOUTH AT BEDTIME 45 tablet 3 12/30/19 11:43 AM EST 025 Active melatonin 3 MG tabletIndicati ons:Mild depression TAKE 1 TABLET BY MOUTH AT BEDTIME 30 tablet 3 Active doxazosin (Cardura) 2 MG tablet Take 2 tablets (4 mg) by mouth at bedtime. 60 tablet 024 2024 Discontinued(T herapy completed) melatonin 3 MG tabletIndicati ons:Mild depression TAKE [...] 11:24 AM EST): Under the care of Manager Of Construction at [facility] , last seen 01/13/2024 Assessment & Plan (02/24/2023 9:24 AM EST): Under the care of Manager Of Construction at [facility] , last seen 01/29/2023 Assessment & Plan [...] 02/09/2019 Essential hypertension 07/28/2011 Overview (06/23/2022): [facility]ined [facility] 10/2021. Frequently misses appointments. Followed by cardiology. Hx of CABG/ ASVCD. Was switched to [facility] pharmacy with medboxes with improved adherence Current [...] Patient here for a HDF Admitted to [facility] for prostate and rectal pain. PMH significant [...] and Ezetimide 10 mg ( Prescribed by Manager Of Construction ) last seen 09/24/2021 . LFTS 05/22/2021 [...] Encounters Date Type Department Care Team Description 01/16/2025 Refill [facility] [address] [place] [address] Darius Eden MD 01/12/2025 Telephone [facility] [address] [place] [address] Darius Eden MD CHART PREP 01/09/2025 Patient Outreach [address] [address] Darius Eden MD Pre-visit Planning (Pre-visit planning - LVM ) 01/03/[address] [address] Demetrice Coronado, RAYSA Paperwork/Forms 12/23/2024 Refill [facility] [address] [place], [place] [phone] Darius Eden MD Primary insomnia; Mild depression 12/06/[address] [address] Dairus Eden MD Referral 11/23/2024 Refill [facility] [address] [place] [address] Darius Eden MD Type 2 diabetes mellitus with other specified complication, unspecified whether mcfp insulin use (HCC) 10/24/[address] [address] Darius Eden MD January recall 10/22/2024 Refill [facility] [address] [place] [address] Salima Concepcion MD Depressive disorder from Last 3 Months Immunizations Immunization Administration [...] 10:15 AM EST Office Visit [facility] [address] [place], [place] [phone] Darius Eden MD [address] [place] [address] Health Maintenance Due Date Last Done Comments [...] 06/06/2024, 12/10, 05/22/2021 Eye Exam 07/12/2025 07/12/2024, 06/04/2024, 07/12/2024, Additional history exists Tobacco Screening 10/11/2025 [...] has chronic kidney disease No Demetrice Coronado, RAYSA Weekly blood pressure task Care Plan Weekly blood pressure task No Demetrice Coronado, RN Patient has chronic kidney disease Care Plan Patient has chronic kidney disease No Demetrice Coronado, RN Weekly blood pressure task Care Plan Weekly blood pressure task No Darius Eedn MD Weekly blood pressure task Care Plan [...] chronic kidney disease No Elen Esqueda MA Procedures Procedure Name Priority Date/Time Associated Diagnosis Comments POCT GLYCOSYLATED HEMOGLOBIN (HGB A1C) Routine 10/11/2024 10:19 AM EDT Type 2 diabetes mellitus with diabetic peripheral angiopathy without gangrene, with long-term current use of insulin ([facility]) ALBUMIN, RANDOM URINE W/CREATININE Routine 06/06/2024 9:49 AM EDT Type 2 diabetes mellitus with hyperglycemia, with long-term current use of insulin ([facility]) LIPID PANEL, STANDARD Routine 06/06/2024 9:49 AM EDT Coronary arteriosclerosis HM COLONOSCOPY Routine 06/25/2023 ZZZ HISTORICAL HEPATITIS C AB W/REFL TO HCV RNA, QN, PCR Routine 05/22/2021 8:46 AM EDT from Last 3 Months or Most Recently Relevant to Health Maintenance Results * (ABNORMAL) POCT glycosylated hemoglobin (Hgb A1c) (10/11/2024 10:19 AM EDT) Hemoglobin A1C 7.2(A) 4.0 - 5.7 % QC Media Lot # [id number] Lot# Expiration Date ,[id number] Blood Capillary blood specimen / Unknown 10/11/2024 10:19 AM EDT Darius Christian MD POINT OF CARE TEST EN TER/EDIT ORDERABLES Final Result * Albumin, Random Urine W/Creatinine (06/06/2024 9:49 AM EDT) Creatinine, Urine 387.16 mg/dL [facility] Microalbumin Urine 61.0 mg/L [facility] Microalbum Creatinine Ratio Ur 15.7 <30 ug/mg cr [facility] Comment:Albumin/Creatinine R atio Reference Ranges: Normal: < 30 ug/mg creatinine Microalbuminuria: 30 - 300 ug/mg creatinineClinical Albuminuria: > 300 ug/mg creatinine Urine (Urine, Random) 06/06/2024 9:49 AM EDT 06/06/2024 11:03 AM EDT Avery Ceballos [facility] URINE ORDERABLES Cassidy l Result [facility] [address] [place] [phone] * Lipid Panel, Standard (06/06/2024 9:49 AM EDT) Triglycerides 83 <150 mg/dL [facility] Comment:Desirable Triglyceri de: less than 150 mg/dLBorderline High Triglyceride 150-199 mg/dLHigh Triglyceride: 200-499 mg/dLVery High Triglyceride: greater than or equal to 5OO mg/dL Cholesterol 101 <200 mg/dL [facility] Comment:Desirable Cholestero l: less than 200 mg/dLBorderline High Cholesterol: 200-239 mg/dLHigh Cholesterol: greater than 239 mg/dL LDL Cholesterol Calculated 44 <100 mg/dL [facility] Comment:Desirable LDL: less than 100 mg/dLNear Optimal/Above Optimal LDL: 110- 129 mg/dLBorderline High LDL: 130-159 mg/dLHigh LDL: 160-189 mg/dLVery High LDL: greater than or equal to 190 mg/dL HDL Cholesterol 41 >40 mg/dL [facility] Comment:Desirable HDL: great er than 40 mg/dL Note: This HDL assay may give artificially low results in patients with liver disease. Blood Venous blood specimen / Unknown 06/06/2024 9:49 AM EDT 06/06/2024 10:57 AM EDT Darius Christian MD LAB BLOOD ORDERABLES Final Result [facility] [address] [place] [address] [phone] * Hm Colonoscopy (06/25/2023) Colonoscopy Normal Normal Impressions Darius Eden MD - 06/25/2023 Tubular Adenoma Historical Provider HEALTH MAINTENANCE Final Result * HEPATITIS C AB W/REFL TO HCV RNA, QN, PCR (05/22/2021 8:46 AM EDT) HEPATITIS C ANTIBODY NON-REACT TABATHA NON-REACT TABATHA [facility] INDEX 0.01 <1.00 [facility] Comment: HCV antibody was non-reactive. There is no laboratory evidence of HCV infection. In most cases, no further action is required. However, if recent HCV exposure is suspected, a test for HCV RNA (test code 57981) is suggested. For additional information please refer to http://education.[employer].Prestigos/faq/WDW74f4 (This link is being provided for informational/ educational purposes only.) 05/22/2021 8:46 AM EDT Darius Christian MD HISTORICAL/NON ORDERA BLE LABS Final Result [facility] [address] from Last 3 Months or Most [...] 01/12/2025 Patient has chronic kidney disease 01/12/[address] [place] [address] [place] [id number] [facility] [address] [place] [id number] Care Teams Human Projectile Relationship Specialty Start Date End Date Darius Eden MD [address] [place] [address] PCP - General Internal Medicine 05/21/21 Tip Sims, PharmD [address] [place] [address] Pharmacist Internal Medicine 03/20/22 [facility] 03/20/22 [facility] 12/31/23
--- OUTSIDE RECORDS SUMMARY | 2025-01-16 21:11 | XMS_ITS | Encounter Summary ---
Author Organization [employer] Address [address] [facility] 7 [place] [address] Care Team Providers Care Lumpia Wrapper Maker Name Role Phone Darius Eden MD Primary Care Provide r Tip Sims PharmD Unavailable [phone] Reason for Visit * Reason Comments Med Refill Encounter Details Date Type Department Care Team ([facility] st Contact Info) Description 03/09/2023 Refill [facility] MEDICINE [address] [place], [place] [phone] Darius Eden MD 230 [place], [place] [phone] Acute cough Social History Tobacco Use Types [...] Description 01/19/2025 10:15 AM EST Office Visit [facility] [address] [place] [address] Darius Eden MD [address] [place] [address] documented as of this encounter Visit Diagnoses Diagnosis Acute cough documented in this encounter Additional Health Concerns Assessment Noted Time PHQ-9 Depression Total Score: 6 10/15/19 23 3:08 PM EDT documented as of this encounter Care Teams Lumpia Wrapper Maker Relationship Specialty Start Date End Date Darius Eden MD [address] [place] [phone] PCP - General Internal Medicine 05/21/21 Tip Sims, Carlos [address] [place] [phone] Pharmacist Internal Medicine 03/20/22 [facility] 03/20/22 [facility] 12/31/23 documented as of this encounter
--- OUTSIDE RECORDS SUMMARY | 2025-01-16 21:11 | XMS_ITS | Encounter Summary ---
Author Organization [employer] Address 75 [facility] 7 [place] [address] Care Team Providers Care Refinery Operator Helper Crude Unit Name Role Phone Darius Eden MD Primary Care Provide r Tip Sims PharmD Unavailable [phone] Encounter Details Date Type Department Care Team ([facility] st Contact Info) Description 07/18/2024 Telephone [facility] MEDICINE [address] [place], [place] [phone] Darius Eden MD 230 [place], [place] [phone] Social History Tobacco Use Types Packs/Day Years [...] 01/19/2025 10:15 AM EST Office Visit [facility] [address] [place] [address] Darius Eden MD [address] [place] [address] documented as of this encounter Visit Diagnoses Not on filedocumented in this encounter Additional Health Concerns Assessment Noted Time PHQ-9 Depression Total Score: 0 11/19/19 10:20 AM EDT documented as of this encounter Care Teams Refinery Operator Helper Crude Unit Relationship Specialty Start Date End Date Darius Eden MD [address] [place] [phone] PCP - General Internal Medicine 05/21/21 Tip Sims, Carlos [address] [place] [phone] Pharmacist Internal Medicine 03/20/22 [facility] 03/20/22 [facility] 12/31/23 documented as of this encounter
--- OUTSIDE RECORDS SUMMARY | 2025-01-16 21:12 | XMS_ITS | Encounter Summary ---
Author Organization [employer] Address [address] [facility] 7t [place] [address] Care Team Providers Care Technician Chemical Cleaning Name Role Phone Darius Eden MD Primary Care Provide r Tip Sims PharmD Unavailable [phone] Reason for Visit * Reason Comments Med Refill Encounter Details Date Type Department Care Team (Late st Contact Info) Description 02/16/2024 Refill [facility] [address] [place], [place] [phone] Darius Eden MD [address] [place], [place] [phone] Primary insomnia Social History Tobacco Use Types [...] Description 01/19/2025 10:15 AM EST Office Visit [facility] MEDICINE [address] [place] [address] Darius Eden MD [address] [place] [phone] documented as of this encounter Visit Diagnoses Diagnosis Primary insomnia Persistent disorder of initiating or maintaining sleep documented in this encounter Additional Health Concerns Assessment Noted Time PHQ-9 Depression Total Score: 0 11/19/19 24 10:20 AM EDT documented as of this encounter Care Teams Technician Chemical Cleaning Relationship Specialty Start Date End Date Darius Eden MD [address] [place] [address] PCP - General Internal Medicine 05/21/21 Tip Sims, DevoraD [address] [place] [phone] Pharmacist Internal Medicine 03/20/22 [facility] 03/20/22 [facility] 12/31/23 documented as of this encounter
--- OUTSIDE RECORDS SUMMARY | 2025-01-16 21:12 | XMS_ITS | Encounter Summary ---
Author Organization [employer] Address 75 [facility] 7 [place] [address] Care Team Providers Care Sprayer Machine Name Role Phone Darius Eden MD Primary Care Provide r Tip Sims PharmD Unavailable [phone] Reason for Visit * Reason Onset Date Comments Call Back Request 01/07/2023 Encounter Details Date Type Department Care Team ([facility] Contact Info) Description 01/07/2023 Telephone [facility] [address] [place], [place] [phone] Darius Eden MD 230 [place], [place] [phone] Call Back Request Social History Tobacco Use [...] 10:15 AM EST Office Visit [facility] [address] [place] [address] Darius Eden MD [address] [place] [address] documented as of this encounter Visit Diagnoses Not on filedocumented in this encounter Additional Health Concerns Assessment Noted Time PHQ-9 Depression Total Score: 6 10/15/19 23 3:08 PM EDT documented as of this encounter Care Teams Sprayer Machine Relationship Specialty Start Date End Date Darius Eden MD [address] [place] [address]398 PCP - General Internal Medicine 05/21/21 Tip Sims, DevoraD [address] [place] [address] 21766 Pharmacist Internal Medicine 03/20/22 [facility] 03/20/22 [facility] 12/31/23 documented as of this encounter
--- OUTSIDE RECORDS SUMMARY | 2025-01-16 21:12 | XMS_ITS | Encounter Summary ---
Author Organization [employer] Address 75 [facility] 7 [place] [address] Care Team Providers Care Burnisher And Bumper Name Role Phone Darius Eden MD Primary Care Provide r Tip Sims PharmD Unavailable [phone] Reason for Visit * Reason Comments Med Refill Encounter Details Date Type Department Care Team ([facility] st Contact Info) Description 01/19/2023 Refill [facility] 230 [place], [place] [phone] Darius Eden MD 230 [place], [place] [phone] Mild depression Social History Tobacco Use Types [...] 10:15 AM EST Office Visit [facility] [address] [place] [address] Darius Eden MD [address] [place] [address] documented as of this encounter Visit Diagnoses Diagnosis Mild depression Depressive disorder, not elsewhere classified documented in this encounter Additional Health Concerns Assessment Noted Time PHQ-9 Depression Total Score: 6 10/15/19 23 3:08 PM EDT documented as of this encounter Care Teams Burnisher And Bumper Relationship Specialty Start Date End Date Darius Eden MD [address] [place] [address]221 PCP - General Internal Medicine 05/21/21 Tip Sims, Carlos [address] [place] [address] 66185 Pharmacist Internal Medicine 03/20/22 [facility] 03/20/22 [place] [facility] 12/31/23 documented as of this encounter
--- OUTSIDE RECORDS SUMMARY | 2025-01-16 21:12 | XMS_ITS | Encounter Summary ---
Author Organization [employer] Address 75 [facility] 7t [place] [address] Care Team Providers Care Color Matcher Name Role Phone Darius Eden MD Primary Care Provide r Tip Sims PharmD Unavailable [phone] Reason for Visit * Reason Comments Med Refill Encounter Details Date Type Department Care Team (Late st Contact Info) Description 02/11/[address] [facility] MED & PEDS [address] [place], [place] [phone] Darius Eden MD [address] [place], [place] [phone] Depressive disorder; Primary insomnia Social History Tobacco [...] 01/19/2025 10:15 AM EST Office Visit [facility] [address] [place] [address] Darius Eden MD [address] [place] [address] documented as of this encounter Visit Diagnoses Diagnosis Depressive disorder Depressive disorder, not elsewhere classified Primary insomnia Persistent disorder of initiating or maintaining sleep documented in this encounter Additional Health Concerns Assessment Noted Time PHQ-9 Depression Total Score: 0 11/19/19 24 10:20 AM EDT documented as of this encounter Care Teams Color Matcher Relationship Specialty Start Date End Date Darius Eden MD [address] [place] [address] PCP - General Internal Medicine 05/21/21 Tip Sims PharmD [address] [place] [address] 55668 Pharmacist Internal Medicine 03/20/22 [facility] 03/20/22 [facility] 12/31/23 documented as of this encounter
--- OUTSIDE RECORDS SUMMARY | 2025-01-16 21:13 | XMS_ITS | Encounter Summary ---
Author Organization [employer] Address 75 [facility] 7t [place] [address] Care Team Providers Care Housecalls Nurse Name Role Phone Darius Eden MD Primary Care Provide r Tip Sims PharmD Unavailable [phone] Reason for Visit * Reason Comments Med Refill Encounter Details Date Type Department Care Team (Late st Contact Info) Description 12/05/2022 Refill [facility] PEDS [address] [place], [place] [phone] Darius Eden MD 230 [place], [place] [phone] Heartburn Social History Tobacco Use Types Packs/Day [...] Description 01/19/2025 10:15 AM EST Office Visit [facility] [address] [place] [address] Darius Eden MD [address] [place] [address] documented as of this encounter Visit Diagnoses Diagnosis Heartburn documented in this encounter Additional Health Concerns Assessment Noted Time PHQ-9 Depression Total Score: 6 10/15/19 23 3:08 PM EDT documented as of this encounter Care Teams Housecalls Nurse Relationship Specialty Start Date End Date Darius Eden MD [address] [place] [address] PCP - General Internal Medicine 05/21/21 Tip Sims, DevoraD [address] [place] [address] Pharmacist Internal Medicine 03/20/22 [facility] 03/20/22 [facility] 12/31/23 documented as of this encounter
== END 2025-01-16 13:22 | disposition home or self-care (01) ==
LOC: HO.HOS 12:33
PROVIDERS: PCP Internal Medicine
DX: M17.0 Bilateral primary osteoarthritis of knee (principal)
CPT/HCPCS: 20610

== ENCOUNTER → 2025-01-16 12:32 | Outpatient (BNVA) | payer MEDICARE, MEDICAID, SELFPAY | PROVIDERS: PCP Internal Medicine | DX: M17.0 Bilateral primary osteoarthritis of knee (principal) | CPT/HCPCS: 20610; J0665; J1100; J2003 ==

== ENCOUNTER 2025-02-06 08:46 | Outpatient (AMB) | payer MEDICARE, MEDICAID, SELFPAY ==
--- NOTE | 2025-02-06 08:49 | A.OFFVIS_ITS ---
Vital Signs 02/06/25 08:56 Height 5 ft 6 in Weight 179 lb BMI 28.9 Intake Visit Reasons: INJ- RT knee inj, last 10/14/24 Intake Note: Len is a 74 year old male with a history of T2DM who presents today for follow up of his Right Knee Osteoarthritis status post Right Knee injection, DOS: 10/14/24. Patient was last seen on 09/28/2023 where he had his right knee injection. At today's visit he states that he did not check his blood sugar and due to not having the machine he has not checked his blood sugar for the past two months. He noted that he has an appointment with his PCP next month in regards to his Blood sugar. Installations Inspector Required: Yes Installations Inspector Services: Installations Inspector Present Installations Inspector Name: [id number] Allergies No Known Allergies (No Known Allergies*) Allergy (Verified 01/16/25 13:05) HPI HPI INJ- RT knee inj, last 10/14/24: Details: Len is a 74 year old male with a history of T2DM who presents today for follow up of his Right Knee Osteoarthritis status post Right Knee injection, DOS: 10/14/24. Patient was last seen on 09/28/2023 where he had his right knee injection. At today's visit he states that he did not check his blood sugar and due to not having the machine he has not checked his blood sugar for the past two months. He noted that he has an appointment with his PCP next month in regards to his Blood sugar. No other acute complaints or concerns at this time. [facility] Medical History Osteoarthritis of knees, bilateral Type 2 diabetes mellitus with unspecified complications Sepsis Hyperthyroidism Multinodular thyroid HLD (hyperlipidemia) HTN (hypertension) Obesity NSTEMI (non-ST elevated myocardial infarction) CAD (coronary artery disease) Diabetes mellitus Myocardial infarct Surgical History History of esophagogastroduodenoscopy (EGD) Hx of colonoscopy Hx of ultrasound guided needle biopsy Hx of CABG (~07/2016) Family History Mother Cardiovascular disease Father Medical history unknown Sister Cancer Brother Cancer Social History Household Members: Family Housing: Apartment Are you a primary before and after school daycare worker to a significant other at home: No Do you presently have visiting nurse or other home services: No Alcohol intake: former Patient Tobacco Use Status: Former Tobacco user Second Hand Smoke Exposure: No service: No Current occupational status: unemployed Physical Exam Vital Signs: BMI result Body Mass Index 28.9 Assessment & Plan Assessment & Plan (1) Bilateral primary osteoarthritis of knee: Code(s): M17.0 - Bilateral primary osteoarthritis of knee Category: Medical Plan 1. Right knee osteoarthritis Patient is educated about this condition Patient is educated about the typical treatment course The risks and benefits of a steroid injection including but not limited to risk of damage to blood vessels, nerves, tendons, infection, skin bleaching, failure to improve symptoms, increased pain, and possible need for further injections or other intervention were discussed with the patient. At this time, given the fact that the patient has not been able to take his blood sugar for 2 months, I do not feel it was safe for the patient to proceed with a steroid injection at this time, given the risk of DKA or other significant complications, and the patient agrees. Patient will follow-up with his primary care provider to discuss monitoring for his diabetes, and will call us for another appointment when he is able to measure his blood sugars and they are under adequate control. Coding Level of Care Code Est Pt Level 2 (88603) Diagnoses Bilateral primary osteoarthritis of knee M17.0
--- OUTSIDE RECORDS SUMMARY | 2025-02-06 08:52 | XMS_ITS | Encounter Summary ---
Author Organization [employer] Address [address] [place] [address] 7 [place] [address] Care Team Providers Care Merchandise Planner Name Role Phone Darius Eden MD Primary Care Provide r Tip Sims PharmD Unavailable [phone] Encounter Details Date Type Department Care Team (Late st Contact Info) Description 03/05/2022 Orders Only [facility] MED & PEDS [address] [place] [address] Rosaline Lamb LPN Social History Tobacco Use [...] on filedocumented in this encounter Care Teams Merchandise Planner Relationship Specialty Start Date End Date Darius Eden MD [address] [place] [address]185 PCP - General Internal Medicine 05/21/21 Tip Sims, PharmD 230 [place] [address] Pharmacist Internal Medicine 03/20/22 [facility] 03/20/22 [facility] 12/31/23 documented as of this encounter
--- OUTSIDE RECORDS SUMMARY | 2025-02-06 08:52 | XMS_ITS | Encounter Summary ---
Author Organization [employer] Address [address] [place] [address] [address] [place] [address] Care Team Providers Care Employee Communications Manager Name Role Phone Darius Eden MD Primary Care Provide r Tip Sims PharmD Unavailable [phone] Encounter Details Date Type Department Care Team (Late st Contact Info) Description 03/05/2022 Orders Only [facility] [address] [place] [address] Britney Burton LPN Social History Tobacco Use [...] on filedocumented in this encounter Care Teams Employee Communications Manager Relationship Specialty Start Date End Date Darius Eden MD [address] [place] [address]310 PCP - General Internal Medicine 05/21/21 Tip Sims, PharmD [address] [place] [address] 24894 Pharmacist Internal Medicine 03/20/22 [facility] 03/20/22 [facility] 12/31/23 documented as of this encounter
--- OUTSIDE RECORDS SUMMARY | 2025-02-06 08:52 | XMS_ITS | Encounter Summary ---
Author Organization [employer] Address [address] [place] [address] [address] [address] Care Team Providers Care Construction Lineman Name Role Phone Darius Eden MD Primary Care Provide r Tip Sims PharmD Unavailable [phone] Encounter Details Date Type Department Care Team (Late st Contact Info) Description 03/12/2022 Telephone [facility] MEDICINE [address] [place] [address] Darius Eden MD 230 [place], [place] [phone] Social History Tobacco Use Types Packs/Day Years [...] on filedocumented in this encounter Care Teams Construction Lineman Relationship Specialty Start Date End Date Darius Eden MD [address] [place] [address] [phone] PCP - General Internal Medicine 05/21/21 Tip Sims, PharmD [address] [place] [address] [phone] Pharmacist Internal Medicine 03/20/22 [facility] 03/20/22 [facility] 12/31/23 documented as of this encounter
--- OUTSIDE RECORDS SUMMARY | 2025-02-06 08:52 | XMS_ITS | Clinical Summary ---
Author Organization [facility] Address [address] [place] [address] Care Team Providers Care Motor Tester Name Role Phone Lauren Whyte Primary Care Provider + Surgical History Surgery Date Site/Laterality Comments CARPAL TUNNEL RELEASE PROCEDURE: CO NEUROPLASTY &/TRANSPOS MEDIAN NRV CARPAL TUNNE COLONOSCOPY [...] 03/23/2012 DX:Anxiety Depression 03/23/2012 DX:Depression Diabetic cataract ([facility] V 24, [facility] V28) 09/07/2014 DX:Diabetic cataract ([facility]) GERD (gastroesophageal reflux disease) 01/12/2012 DX:GERD (gastroesophageal reflux disease) Type II or unspecified type diabetes mellitus with ophthalmic manifestations, uncontrolled(250.52) ([facility] V24, [facility] V28) 06/26/2013 DX:Type II or unspecified t ype diabetes mellitus with ophthalmic manifestations, uncontrolled(250.52) ([facility]) Tinnitus of right ear 12/07/2012 DX:Tinnitu s of right ear PVD (peripheral vascular dis ease) ([facility] V24) 06/22/2014 DX:PVD (peripheral vascular disease) ([facility]) Obstructive sleep apnea 05/27/2013 DX:Obstr uctive sleep apnea; COMMENT: Dr. Thornton, neurologist at [facility] night study 02/06/13: AHI 102.4, O2 [...] Elbows, knees Asthma 03/08/2012 DX:Asthma Atherosclerosis of [place] co ronary artery of [place] heart with angina pectoris (CMS/HCC V24) 06/12/2015 DX:Atherosclerosis of [place] coronary artery of [place] heart with angina pectoris (HCC) Balanitis 05/25/2012 [...] on file Sexual Orientation Not on file Plan of Treatment Health Maintenance Due Date Last Done Comments Zoster Vaccines (1 of 2) 1998 RSV Immunization Adult Patients (1 - 1-dose 75+ series) 08/20/2023 Depression Screening 02/10/2024 COVID-19 Vaccine ( - 2024- season) 2024 06/10/2020, 05/13/2020 Influenza Vaccine (#1) [...] age to complete this topic Care Teams Motor Tester Relationship Specialty Start Date End Date Lauren Whyte PA PCP - General Internal Medicine 01/24/21
--- OUTSIDE RECORDS SUMMARY | 2025-02-06 08:52 | XMS_ITS | Encounter Summary ---
Author Organization [employer] Address 75 [facility] 7 [place] [address] Care Team Providers Care Meal Cooker Name Role Phone Darius Eden MD Primary Care Provide r Tip Sims PharmD Unavailable [phone] Encounter Details Date Type Department Care Team ([facility] st Contact Info) Description 07/18/2024 Telephone [facility] MEDICINE [address] [place], [place] [phone] Darius Eden MD [address] [place], [place] [phone] Social History Tobacco Use Types Packs/Day Years [...] documented as of this encounter Care Teams Meal Cooker Relationship Specialty Start Date End Date Darius Eden MD [address] [place] [address] PCP - General Internal Medicine 05/21/21 Tip Sims PharmD [address] [place] [address]01 Pharmacist Internal Medicine 03/20/22 [facility] 03/20/22 [facility] 12/31/23 documented as of this encounter
--- OUTSIDE RECORDS SUMMARY | 2025-02-06 08:53 | XMS_ITS | Encounter Summary ---
Author Organization [employer] Address 75 [facility] 7t [place] [address] Care Team Providers Care Azure Developer Name Role Phone Darius Eden MD Primary Care Provide r Tip Sims PharmD Unavailable [phone] Reason for Visit * Reason Comments Med Refill Encounter Details Date Type Department Care Team (Late st Contact Info) Description 02/11/2024 Refill [facility] MED & PEDS [address] [place], [place] [phone] Darius Eden MD 230 [place], [place] [phone] Depressive disorder; Primary insomnia Social History Tobacco [...] documented as of this encounter Care Teams Azure Developer Relationship Specialty Start Date End Date Darius Eden MD 230 [place] [address] PCP - General Internal Medicine 05/21/21 Tip Sims PharmD [address] [place] [address] Pharmacist Internal Medicine 03/20/22 [facility] 03/20/22 [facility] 12/31/23 documented as of this encounter
--- OUTSIDE RECORDS SUMMARY | 2025-02-06 08:53 | XMS_ITS | Encounter Summary ---
Author Organization [employer] Address [address] [place] [address] 7 [place] [address] Care Team Providers Care Shroudman Name Role Phone Darius Eden MD Primary Care Provide r Tip Sims PharmD Unavailable [phone] Reason for Visit * Reason Comments Med Refill Encounter Details Date Type Department Care Team ([facility] st Contact Info) Description 03/09/2023 Refill [facility] MEDICINE 230 [place], [place] [phone] Darius Eden MD [address] [place], [place] [phone] Acute cough Social History Tobacco Use Types [...] documented as of this encounter Care Teams Shroudman Relationship Specialty Start Date End Date Darius Eden MD [address] [place] [address] PCP - General Internal Medicine 05/21/21 Tip Sims PharmD [address] [place] [address] Pharmacist Internal Medicine 03/20/22 [facility] 03/20/22 [facility] 12/31/23 documented as of this encounter
--- OUTSIDE RECORDS SUMMARY | 2025-02-06 08:53 | XMS_ITS | Clinical Summary ---
Author Organization [employer] Address [address] [place] [address] 7 [place] [address] Care Team Providers Care Men'S Garment Fitter Name Role Phone Darius Eden MD Primary Care Provide r Tip Sims PharmD Unavailable [phone] Allergies No known active allergies Medications Breo [...] with other specified complication, unspecified whether intermediate frame tender insulin use (HCC) Take 1 tablet by mouth Once per day. 30 tablet 11 Active insulin pen needle (Easy Touch Pen Apache) 31G X 8 mm misc USE DIRECTED FOUR TIMES DAILY 100 each 11 Active Acetaminophen Extra Strength 500 MG tabletIndicati ons:Acute pain of right knee TAKE 2 TABLETS BY MOUTH EVERY 8 HOURS NEEDED FOR PAIN 60 tablet Active insulin glargine (Basaglar KwikPen) 100 UNIT/ML pen Inject 80 Units under the skin at bedtime. 3 mL 12 5 11:43 AM EST 2025 Active Blood Glucose Monitoring Suppl (OneTouch Verio Flex System) w/Device kitIndications :Type 2 diabetes mellitus without complication, unspecified whether skilled nursing insulin use TEST BLOOD SUGAR EVERY DAY 1 kit Active Lancets (TracabTouch Delica Plus [id number]) miscIndication s:Type 2 diabetes mellitus without complication, unspecified whether intermediate frame tender insulin use TEST BLOOD SUGAR THREE TIMES DAILY 100 each 1 Active glucose blood (OneTouch Verio) test stripIndicatio ns:Type 2 diabetes mellitus without complication, unspecified whether intermediate frame tender insulin use TEST BLOOD SUGAR THREE TIMES DAILY 100 strip 1 025 Active Ventolin HFA 108 (90 Base) [...] mellitus with other specified complication, unspecified whether skilled nursing insulin use (HCC) INJECT ONE PEN (= [...] AT BEDTIME 30 tablet 3 025 Active NovoLOG FLEXPEN 100 UNIT/ML pen INJECT 16 UNITS SUBCUTANEOUSLY BEFORE BREAKFAST, BEFORE LUNCH, AND BEFORE SUPPER WITH FOOD 15 mL 3 025 Active insulin aspart (NovoLOG FLEXPEN) 100 UNIT/ML pen Inject 16 Units under the skin before breakfast, before lunch, and before evening meal. 10 mL 3 5 11:43 AM EST 025 2024 Discontinued Active Problems Problem Noted [...] 11:24 AM EST): [place] Entertainment Dancer [place] [facility] [place] last seen 01/13/2024 Assessment & Plan (02/24/2023 9:24 AM EST): [place] the [place] of Entertainment Dancer [place] [facility] [place] last seen 01/29/2023 Assessment & Plan [...] Essential hypertension 07/28/2011 Overview (06/23/2022): Joined [facility] 10/2021. Frequently misses appointments. Followed by cardiology. Hx of CABG/ ASVCD. Was switched to [facility] pharmacy with medboxes with improved adherence [...] Patient here for a HDF Ad[place] [facility] [place] prostate and rectal pain. PMH significant [...] and Ezetimide 10 mg ( Prescribed by Entertainment Dancer ) last seen 09/24/2021 . LFTS 05/22/2021 [...] Type Department Care Team Description 01/16/2025 Refill [facility] [address] [place] [address] Darius Eden MD 01/12/2025 Telephone [facility] [address] [place] [address] Darius Eden MD CHART PREP 01/09/2025 Patient Outreach [facility] [address] [place] [address] Darius Eden MD Pre-visit Planning (Pre-visit planning - LVM ) 01/03/2025 Telephone [facility] [address] [place] [address] Demetrice Coronado, RN Paperwork/Forms 12/23/2024 Refill [facility] [address] [place] [address] Darius Eden MD Primary insomnia; Mild depression 12/06/2024 Telephone [facility] [address] [place] [address] Darius Eden MD Referral 11/23/2024 Refill [facility] [address] [place], [place] [phone] Darius Eden MD Type 2 diabetes mellitus with other specified complication, unspecified whether intermediate frame tender insulin use (HCC) from Last 3 Months Immunizations Immunization Administration [...] series) 08/20/2023 COVID-19 Vaccine (3 - season) 2024 06/10/2020, 05/13/2020 Influenza Vaccine [...] Media Lot # [id number] Lot# Expiration Date [id number] Blood Capillary blood specimen / Unknown 10/11/2024 10:19 AM EDT Darius Christian MD POINT OF CARE TEST EN TER/EDIT ORDERABLES Final Result * Albumin, Random Urine W/Creatinine (06/06/2024 9:49 AM EDT) Creatinine, Urine 387.16 mg/dL [facility] Microalbumin Urine 61.0 mg/L [facility] Microalbum Creatinine Ratio Ur 15.7 <30 ug/mg cr [facility] Comment:Albumin/Creatinine R atio Reference Ranges: Normal: < 30 ug/mg creatinine Microalbuminuria: 30 - 300 ug/mg creatinineClinical Albuminuria: > 300 ug/mg creatinine Urine (Urine, Random) 06/06/2024 9:49 AM EDT 06/06/2024 11:03 AM EDT Avery Ceballos DESKTOP PUBLISHING OPERATOR LAB URINE ORDERABLES Cassidy l Result [facility] [address] [place] [address] [phone] * Lipid Panel, Standard (06/06/2024 9:49 AM EDT) Triglycerides 83 <150 mg/dL [facility] Comment:Desirable Triglyceri de: less than 150 mg/dLBorderline High Triglyceride 150-199 mg/dLHigh Triglyceride: 200-499 mg/dLVery High Triglyceride: greater than or equal to 5OO mg/dL Cholesterol 101 <200 mg/dL [facility] Comment:Desirable Cholestero l: less than 200 mg/dLBorderline High Cholesterol: 200-239 mg/dLHigh Cholesterol: greater than 239 mg/dL LDL Cholesterol Calculated 44 <100 mg/dL [facility] Comment:Desirable LDL: less than 100 mg/dLNear Optimal/Above Optimal LDL: 110- 129 mg/dLBorderline High LDL: 130-159 mg/dLHigh LDL: 160-189 mg/dLVery High LDL: greater than or equal to 190 mg/dL HDL Cholesterol 41 >40 mg/dL [facility] Comment:Desirable HDL: great er than 40 mg/dL Note: This HDL assay may give artificially low results in patients with liver disease. Blood Venous blood specimen / Unknown 06/06/2024 9:49 AM EDT 06/06/2024 10:57 AM EDT us Darius Christian MD LAB BLOOD ORDERABLES Final Result [facility] [address] [place] [address] [phone] * Hm Colonoscopy (06/25/2023) Colonoscopy Normal Normal Impressions Darius Eden MD - 06/25/2023 Tubular Adenoma Historical Provider HEALTH MAINTENANCE Final Result * HEPATITIS C AB W/REFL TO HCV RNA, QN, PCR (05/22/2021 8:46 AM EDT) HEPATITIS C ANTIBODY NON-REACT TABATHA NON-REACT TABATHA [facility] INDEX 0.01 <1.00 [facility] Comment: HCV antibody was non-reactive. There is no laboratory evidence of HCV infection. In most cases, no further action is required. However, if recent HCV exposure is suspected, a test for HCV RNA (test code 90524) is suggested. For additional information please refer to http://education.Zoove/faq/YGQ22a7 (This link is being provided for informational/ educational purposes only.) 05/22/2021 8:46 AM EDT us Darius Christian MD HISTORICAL/NON ORDERA BLE LABS Final Result [facility] [address] from Last 3 Months or Most [...] has chronic kidney disease 01/12/2025 Insurance MEDICARE [facility] Care Teams Men'S Garment Fitter Relationship Specialty Start Date End Date Darius Eden MD [address] [place] [address] PCP - General Internal Medicine 05/21/21 Tip Sims, DevoraD [address] [place] [address] Pharmacist Internal Medicine 03/20/22 [facility] 03/20/22 [facility] 12/31/23
--- OUTSIDE RECORDS SUMMARY | 2025-02-06 08:53 | XMS_ITS | Encounter Summary ---
Author Organization [employer] Address [address] [facility] 7 [place] [address] Care Team Providers Care Materials And Processes Manager Name Role Phone Darius Eden MD Primary Care Provide r Tip Sims PharmD Unavailable [phone] Reason for Visit * Reason Comments Med Change Request Encounter Details Date Type Department Care Team ([facility] Contact Info) Description 11/20/2023 Refill [facility] [address] [place], [place] [phone] Darius Eden MD [address] [place], [place] [phone] Primary insomnia Social History Tobacco Use Types [...] documented as of this encounter Care Teams Materials And Processes Manager Relationship Specialty Start Date End Date Darius Eden MD [address] [place] [address] PCP - General Internal Medicine 05/21/21 Tip Sims PharmD [address] [place] [address] Pharmacist Internal Medicine 03/20/22 [facility] 03/20/22 [facility] 12/31/23 documented as of this encounter
--- OUTSIDE RECORDS SUMMARY | 2025-02-06 08:53 | XMS_ITS | Encounter Summary ---
Author Organization [employer] Address [address] [facility] 7 [place] [address] Care Team Providers Care Gender Studies Professor Name Role Phone Darius Eden MD Primary Care Provide r Tip Sims PharmD Unavailable [phone] Reason for Visit * Reason Onset Date Comments New Med Request 09/21/2023 Encounter Details Date Type Department Care Team ([facility] st Contact Info) Description 09/21/2023 Telephone [facility] [address] [place], [place] [phone] Darius Eden MD [address] [place], [place] [phone] New Med Request Social History Tobacco Use [...] documented as of this encounter Care Teams Gender Studies Professor Relationship Specialty Start Date End Date Darius Eden MD [address] [place] [address] PCP - General Internal Medicine 05/21/21 Tip Sims PharmD [address] [place] [address] Pharmacist Internal Medicine 03/20/22 [facility] 03/20/22 [facility] 12/31/23 documented as of this encounter
--- OUTSIDE RECORDS SUMMARY | 2025-02-06 08:53 | XMS_ITS | Encounter Summary ---
Author Organization [employer] Address [address] [facility] 7t [place] [address] Care Team Providers Care Manager Career Name Role Phone Darius Eden MD Primary Care Provide r Tip Sims PharmD Unavailable [phone] Reason for Visit * Reason Comments Med Refill Encounter Details Date Type Department Care Team (Late st Contact Info) Description 02/16/2024 Refill [facility] MED & PEDS [address] [place], [place] [phone] Darius Eden MD [address] [place], [place] [phone] Primary insomnia Social History Tobacco Use Types [...] as of this encounter Care Teams Manager Career Relationship Specialty Start Date End Date Darius Eden MD [address] [place] [address] PCP - General Internal Medicine 05/21/21 Tip Sims PharmD [address] [place] [address] Pharmacist Internal Medicine 03/20/22 [facility] 03/20/22 [facility] 12/31/23 documented as of this encounter
--- OUTSIDE RECORDS SUMMARY | 2025-02-06 08:53 | XMS_ITS | Encounter Summary ---
Author Organization [employer] Address [address] [facility] 7 [place] [address] Care Team Providers Care Clinic Director Name Role Phone Darius Eden MD Primary Care Provide r Tip Sims PharmD Unavailable [phone] Reason for Visit * Reason Comments Med Refill Encounter Details Date Type Department Care Team ([facility] st Contact Info) Description 01/19/2023 Refill [facility] MEDICINE [address] [place], [place] [phone] Darius Eden MD [address] [place], [place] [phone] Mild depression Social History Tobacco Use Types [...] documented as of this encounter Care Teams Clinic Director Relationship Specialty Start Date End Date Darius Eden MD [address] [place] [address] PCP - General Internal Medicine 05/21/21 Tip Sims PharmD [address] [place] [address] Pharmacist Internal Medicine 03/20/22 [facility] 03/20/22 [facility] 12/31/23 documented as of this encounter
--- OUTSIDE RECORDS SUMMARY | 2025-02-06 08:53 | XMS_ITS | Encounter Summary ---
Author Organization [employer] Address [address] [place] [address] 7 [place] [address] Care Team Providers Care Software Systems Architect Name Role Phone Darius Eden MD Primary Care Provide r Tip Sims PharmD Unavailable [phone] Reason for Visit * Reason Onset Date Comments Med Refill 10/26/2023 Encounter Details Date Type Department Care Team ([facility] st Contact Info) Description 10/26/2023 Telephone [facility] MEDICINE [address] [place], [place] [phone] Darius Eden MD [address] [place], [place] [phone] Med Refill Social History Tobacco Use Types [...] 500 MG tablet To be sent to: [facility] - [place], [place] - [address] [place] [address] documented in this encounter Plan of Treatment Not on file documented as of this encounter Visit Diagnoses Not on filedocumented in this encounter Additional Health Concerns Assessment Noted Time PHQ-9 Depression Total Score: 6 10/15/19 23 3:08 PM EDT documented as of this encounter Care Teams Software Systems Architect Relationship Specialty Start Date End Date Darius Eden MD [address] [place] [address] PCP - General Internal Medicine 05/21/21 Tip Sims, DevoraD [address] [place] [address] Pharmacist Internal Medicine 03/20/22 [facility] 03/20/22 [facility] 12/31/23 documented as of this encounter
--- OUTSIDE RECORDS SUMMARY | 2025-02-06 08:53 | XMS_ITS | Encounter Summary ---
Author Organization [employer] Address [address] [facility] 7t [place] [address] Care Team Providers Care Aircraft Stress Analyst Name Role Phone Darius Eden MD Primary Care Provide r Tip Sims PharmD Unavailable [phone] Reason for Visit * Reason Comments Med Refill Encounter Details Date Type Department Care Team (Late st Contact Info) Description 12/05/2022 Refill [facility] MED & PEDS [address] [place], [place] [phone] Darius Eden MD [address] [place], [place] [phone] Heartburn Social History Tobacco Use Types Packs/Day [...] documented as of this encounter Care Teams Aircraft Stress Analyst Relationship Specialty Start Date End Date Darius Eden MD [address] [place] [address] PCP - General Internal Medicine 05/21/21 Tip Sims PharmD [address] [place] [address] Pharmacist Internal Medicine 03/20/22 [facility] 03/20/22 [facility] 12/31/23 documented as of this encounter
--- OUTSIDE RECORDS SUMMARY | 2025-02-06 08:53 | XMS_ITS | Encounter Summary ---
Author Organization [employer] Address [address] [facility] 7 [place] [address] Care Team Providers Care Lining Machine Operator Name Role Phone Darius Eden MD Primary Care Provide r Tip Sims PharmD Unavailable [phone] Reason for Visit * Reason Onset Date Comments Call Back Request 01/07/2023 Encounter Details Date Type Department Care Team ([facility] Contact Info) Description 01/07/2023 Telephone [facility] MEDICINE [address] [place], [place] [phone] Darius Eden MD [address] [place], [place] [phone] Call Back Request Social History Tobacco Use [...] documented as of this encounter Care Teams Lining Machine Operator Relationship Specialty Start Date End Date Darius Eden MD [address] [place] [address] PCP - General Internal Medicine 05/21/21 Tip Sims PharmD [address] [place] [address] Pharmacist Internal Medicine 03/20/22 [facility] 03/20/22 [facility] 12/31/23 documented as of this encounter
--- OUTSIDE RECORDS SUMMARY | 2025-02-06 08:53 | XMS_ITS | Patient Health Record ---
Author Organization [facility] Address [address] [place] [address] Care Team Providers Care Director Semiconductor Name Role Phone Ren Garcia Unavailable [phone] Reason For Referral No Information Plan Of Treatment No Information
[2025-02-06 08:56] VITALS: BMI 28.9
== END 2025-02-06 09:24 | disposition home or self-care (01) ==
LOC: HO.HOS 08:46
PROVIDERS: PCP Internal Medicine
DX: M17.0 Bilateral primary osteoarthritis of knee (principal); E11.69 Type 2 diabetes mellitus with other specified complication
CPT/HCPCS: 99212

== ENCOUNTER → 2025-02-06 08:46 | Outpatient (BNVA) | payer MEDICARE, MEDICAID, SELFPAY | PROVIDERS: PCP Internal Medicine | DX: M17.0 Bilateral primary osteoarthritis of knee (principal); E11.69 Type 2 diabetes mellitus with other specified complication | CPT/HCPCS: 99212 ==